=== PATIENT | female | born 1960 | race Caucasian/White ===

== ENCOUNTER → 2018-09-23 | Outpatient (CLI) | payer OTHER, SELFPAY ==
--- NOTE | 2018-09-23 14:55 | CT_ITS ---
STUDY: LOW DOSE CT LUNG CANCER SCREENING REASON FOR EXAM: Female, 57 years old. 40 pack-year history, lung cancer screening RADIATION DOSAGE (If Supplied By Facility): CTDIvol = ( 3.02 ) mGy, DLP = ( 110.23 ) mGycm TECHNIQUE: No contrast was administered. Low dose technique was utilized (average mAS-38 and kVp 120). 1.25 mm axial source images with a slice interval of 1.25-mm were reconstructed in lung windows. 2.5 mm axial source images with a slice interval of 2.5-mm were reconstructed in lung windows. 5.0 mm axial source images with a slice interval of 5.0-mm were reconstructed in soft tissue windows. Nodule measured using lung windows on PACS and/or independent workstation with automated measurement of minimum and maximum diameter. Nodule measurement reported as average diameter rounded to the nearest whole number. Growth is defined as an increase ins size of greater than 1.5 mm. COMPARISON: None. NODULES: No noncalcified pulmonary nodules. Emphysema: Moderate centrilobular emphysema predominantly in the upper lung miguel. Mild degree of bronchiectasis. There are scattered fibrotic parenchymal bands. Endobronchial lesion: None Aorta: Atherosclerosis with tortuosity but no evidence of aneurysm. Coronary arteries: Mild atherosclerosis. Heart: Normal size Pulmonary artery: Grossly unremarkable. Mediastinal nodes: No soft tissue adenopathy. Other chest and abdominal findings: Adrenal glands are not enlarged. CT/Low Dose CT Lung Screening IMPRESSION: 1. Lung-RADS category 1 - Continue annual screening with LDCT in 12 months. 2. Moderate centrilobular emphysema with bronchiectasis. 3. Atherosclerosis including coronary arteries. IMPORTANT NOTES FOR USE: ACR Lung-RADS Version 1.0 Assessment Categories Release Date: October 02, 2013 Category: Coded 0-4 bases on nodule(s) with highest degree of suspicion. Negative screen is defined as categories 1 and 2; a positive screen is defined as categories 3 and 4. Category 3 and 4A nodules that are unchanged on interval CT should be coded as category 2, and individuals returned to screening in 12 months. Category 4X: Category 3 or 4 nodules with additional imaging findings that increase the suspicion of lung cancer, such as spiculation, GGN that doubles in size in 1 year, enlarged lymph notes, etc. Category Modifiers: S (significant finding unrelated to lung cancer) and C (prior history of treated lung cancer) may be added to the 0-4 Lung-RADS Electronically Signed: Clif Wilson MD at 13:58 EDT , Service support ,
== END | disposition home or self-care (01) ==
PROVIDERS: Family Provider Family Medicine; PCP Family Medicine; Referring Provider Internal Medicine Pulmonary Disease; Visit Provider Internal Medicine Pulmonary Disease
DX: Z87.891 Personal history of nicotine dependence (principal)
CPT/HCPCS: G0297

== ENCOUNTER → 2020-08-31 09:56 | Outpatient (CLI) | payer OTHER, SELFPAY ==
--- NOTE | 2020-08-31 10:02 | CT_ITS ---
STUDY: LOW DOSE CT LUNG CANCER SCREENING REASON FOR EXAM: Female, 59 years old. TOBACCO USE RADIATION DOSAGE (If Supplied By Facility): CTDIvol = ( 4.02 ) mGy, DLP = ( 149.99 ) mGycm TECHNIQUE: Transaxial imaging was performed without the administration of intravenous contrast material. Individualized dose optimization techniques were used for this CT. COMPARISON: CT chest. FINDINGS: Heart and great vessels: Heart size normal. No aneurysm of the thoracic aorta. Calcific atherosclerosis including of the coronary arteries. Lungs, pleura, airways: No pneumonia, edema, or acute abnormality in the lungs. No pleural effusion. No pneumothorax. No concerning pulmonary nodules. Moderate emphysema and mild bronchiectasis are similar to previous. Mediastinum: No adenopathy or mass or hematoma. Osseous:No fracture or acute osseous abnormality. Chest wall: No concerning findings. Upper abdomen: No acute findings. CT/Low Dose CT Lung Screening IMPRESSION: No concerning dominant nodules. Lung RADS category 1. Continued annual screening suggested. Moderate emphysema. IMPORTANT NOTES FOR USE: ACR Lung-RADS Version 1.0 Assessment Categories Release Date: October 02, 2013 Category: Coded 0-4 bases on nodule(s) with highest degree of suspicion. Negative screen is defined as categories 1 and 2; a positive screen is defined as categories 3 and 4. Category 3 and 4A nodules that are unchanged on interval CT should be coded as category 2, and individuals returned to screening in 12 months. Category 4X: Category 3 or 4 nodules with additional imaging findings that increase the suspicion of lung cancer, such as spiculation, GGN that doubles in size in 1 year, enlarged lymph notes, etc. Category Modifiers: S (significant finding unrelated to lung cancer) and C (prior history of treated lung cancer) may be added to the 0-4 Lung-RADS Electronically Signed: Jairon Saul MD at 6:43 EDT Tel , Service support ,
== END ==
PROVIDERS: PCP Family Medicine; Referring Provider Internal Medicine Pulmonary Disease; Visit Provider Internal Medicine Pulmonary Disease
DX: Z12.2 Encounter for screening for malignant neoplasm of respiratory organs (principal); J43.9 Emphysema, unspecified; Z87.891 Personal history of nicotine dependence
CPT/HCPCS: 71271

== ENCOUNTER 2021-09-01 12:37 | Outpatient (CLI) | payer OTHER, SELFPAY ==
--- NOTE | 2021-09-01 12:41 | CT_ITS ---
STUDY: LOW DOSE CT LUNG CANCER SCREENING REASON FOR EXAM: Female, 60 years old. Long history of smoking. Screening for lung cancer. RADIATION DOSAGE (If Supplied By Facility): CTDIvol = ( 3.02 ) mGy, DLP = ( 101.18 ) mGycm TECHNIQUE: No contrast was administered. Low dose technique was utilized (average mAS-38 and kVp 120). 1.25 mm axial source images with a slice interval of 1.25-mm were reconstructed in lung windows. 2.5 mm axial source images with a slice interval of 2.5-mm were reconstructed in lung windows. 5.0 mm axial source images with a slice interval of 5.0-mm were reconstructed in soft tissue windows. Nodule measured using lung windows on PACS and/or independent workstation with automated measurement of minimum and maximum diameter. Nodule measurement reported as average diameter rounded to the nearest whole number. Growth is defined as an increase ins size of greater than 1.5 mm. COMPARISON: 08/31/2020. NODULES: There is hyperinflation of the lungs consistent with chronic obstructive lung disease (COPD). Emphysematous changes are present in both lungs more prominent in the lower lobes. There is complete atelectasis of the right middle lobe. There are no suspicious lung nodules There are no endobronchial lesions. There is no demonstrated pleural abnormality. Normal heart and pericardium. Normal mediastinum. Normal hilar regions. Normal unenhanced pulmonary arteries. Normal aorta arch and descending thoracic aorta. Normal osseous structures. There is no demonstrated abnormality of the visualized upper abdomen. CT/Low Dose CT Lung Screening IMPRESSION: Lung-RADS category 3. Complete atelectasis of the right middle lobe is new since the previous study Recommendation: Endoscopic examination of the right middle lobe bronchus. Follow-up CT scan in 3 months. IMPORTANT NOTES FOR USE: ACR Lung-RADS Version 1.0 Assessment Categories Release Date: October 02, 2013 Category: Coded 0-4 bases on nodule(s) with highest degree of suspicion. Negative screen is defined as categories 1 and 2; a positive screen is defined as categories 3 and 4. Category 3 and 4A nodules that are unchanged on interval CT should be coded as category 2, and individuals returned to screening in 12 months. Category 4X: Category 3 or 4 nodules with additional imaging findings that increase the suspicion of lung cancer, such as spiculation, GGN that doubles in size in 1 year, enlarged lymph notes, etc. Category Modifiers: S (significant finding unrelated to lung cancer) and C (prior history of treated lung cancer) may be added to the 0-4 Lung-RADS Electronically Signed: Enrique Kent MD at 4:56 EDT ,
== END 2021-09-01 23:59 | disposition home or self-care (01) ==
LOC: CT 12:40
PROVIDERS: PCP Family Medicine; Referring Provider Internal Medicine Pulmonary Disease; Visit Provider Internal Medicine Pulmonary Disease
DX: Z87.891 Personal history of nicotine dependence (principal)
CPT/HCPCS: 71271

== ENCOUNTER 2021-09-24 11:22 | Day surgery (SDC) | payer OTHER, SELFPAY ==
--- NOTE | 2021-09-22 08:56 | RAD_ITS ---
INDICATION: PRE-OP EXAMINATION/TECHNIQUE: X-RAY - XR Chest 2 Views COMPARISON: 08/24/2021. FINDINGS: LINES/DEVICES: None. LUNGS: Peribronchial cuffing bilateral hilar prominence is visualized. No evidence of focal lung infiltrate or consolidation. No evidence of pleural effusion. No pneumothorax. MEDIASTINUM AND CARDIOVASCULAR STRUCTURES: Cardiac silhouette not enlarged. Central airways and mediastinal contour are unremarkable. BONES AND SOFT TISSUES: Unremarkable. RAD/Chest PA and Lateral IMPRESSION: No radiographic evidence of acute cardiopulmonary disease. Electronically Signed: Cj Frost MD at 10:42 EDT ,
[2021-09-24] VITALS (7 sets, daily range): BP systolic 107–119; BP diastolic 65–70; PULSE 80–84; RESP 16; TEMP 36.3–36.7; O2SAT 88–94; BMI 33.0
[2021-09-24] MEDS: Lactated Ringers 1,000 ML 15 ML IV (12:35)
[2021-09-24] MEDS: Phenylephrine 0.25% 15 ML NASAL.SRY 15 SPRAY NASAL (13:22)
--- NOTE | 2021-09-24 14:15 | OP.BRONCH_ITS ---
Patient Name: Kendra Buitrago Procedure Date: 09/24/2021 1:17 PM Date of : 1960 Age: 60 Procedure: Bronchoscopy Indications: atelectasis [facility] Providers: Tomi Mackenzie MD Referring MD: Tomi Mackenzie MD Medicines: Lidocaine applied to nares and subglottic space Complications: No immediate complications Procedure: Pre-Anesthesia Assessment: - A History and Physical has been performed. The patient's medications, allergies and sensitivities have been reviewed. - The risks and benefits of the procedure and the sedation options and risks were discussed with the patient. All questions were answered and informed consent was obtained. - The risks and benefits of the procedure and the sedation options and risks were discussed with the patient. All questions were answered and informed consent was obtained. After I obtained informed consent, the scope was passed under direct vision. Throughout the procedure, the patient's blood pressure, pulse, and oxygen saturations were monitored continuously. The bronchoscope was introduced through the right nostril and advanced to the tracheobronchial tree of both lungs. The patient tolerated the procedure well. The total duration of the procedure was 0 hours and 15 minutes. Findings: The nasopharynx/oropharynx appears normal. The larynx appears normal. The vocal cords appear normal. The subglottic space is normal. The trachea is of normal caliber. The rosalba is sharp. The tracheobronchial tree was examined to at least the first subsegmental level. Bronchial mucosa and anatomy are normal; there are no endobronchial lesions, and no secretions. Bronchoalveolar lavage was performed in the RML medial segment (B5) of the lung and sent for cell count, bacterial culture, viral smears & culture, and fungal & AFB analysis. 100 mL of fluid were instilled. 30 mL were returned. The return was blood-tinged. There were no mucoid plugs in the return fluid. Multiple specimens were obtained, and each sent for analysis. Brushings of an area of infiltration were obtained in the medial segment of the right middle lobe Impression: - The airway examination was normal. - The airway examination was normal. - Bronchoalveolar lavage was performed. - Brushings were obtained. Recommendation: - Await BAL and brushing results. Procedure Code(s): --- Professional --- 32416, Bronchoscopy, rigid or flexible, including fluoroscopic guidance, when performed; with brushing or protected brushings Diagnosis Code(s): --- Professional --- J44.9, Chronic obstructive pulmonary disease, unspecified CPT copyright 2017 [employer]. All rights reserved. The codes documented in this report are preliminary and upon belt molder review may be revised to meet current compliance requirements. MD Tomi Garrido MD 09/24/2021 2:15:17 PM This report has been signed electronically. Number of Addenda: 0 Note Initiated On: 09/24/2021 1:17 PM
--- NOTE | 2021-09-24 14:20 | FLU_PTH ---
PATIENT: YVON PATIÑO LOC: EN U#:[id number] AGE/SX: 60/F ROOM: RE09/24/[address]: Dr. Tomi Mackenzie MD : 1960 BED: DIS: 09/24/2021 SPEC #: [id number] RECD: 09/24/21 14:41 STATUS: LILIAN RERafael #: [id number] OLIVER: 09/24/21 14:[address]: Tomi Mackenzie V DEPT: CYTOLOGY RECD BY: Do Baker ENTERED: 09/25/21 09:48 SP TYPE: Fluid OTHR DR: Dr. Vu Aguilera MD Tissues: A - Bronchus of right middle lobe B - Bronchus of right middle lobe C - Bronchus of right middle lobe Procedures: Special Stain Group II Surgery Specimen Level IV Cytospin Fluid Cytology Other HEADER OPERATION: Bronchoscopy PRE-OP DIAGNOSIS: Atelectasis TISSUE SUBMITTED: A ? BAL RML wash, B ? [place], C ? RML x3 smears DIAGNOSIS CYTOLOGY A. RML, washing and BAL fluid (cytospin and cell block): Negative for malignant cells. B. [place] (cytospin and cell block): Negative for malignant cells. C. RML brushings (smears): Negative for malignant cells. :karely 09/26/2021 COMMENT Correlation with clinical, radiologic and appropriate follow up are necessary. CYTOLOGY STUDY Slides are reviewed. CYTOLOGY GROSS A - Received is 20 ml of light pink cloudy fluid labeled with the patient's name and and designated per the requisition as BAL RML wash. Submitted for cytology preparation including cell block. B - Received is 0.3 ml of red cloudy fluid labeled with the patient's name and and designated per the requisition as brush. Submitted for cytology preparation including cell block. C - Received are three smears labeled with the patient's name and designated per the requisition as brush. Submitted for staining. / karely 09/25/2021 TC:5 CPT: 33824 x2, 79116 x2, [id number]
[2021-09-25 07:55] LABS: Cytology, Washings SEE PATHOLOGY REPORT
== END 2021-09-24 15:00 | disposition home or self-care (01) ==
LOC: EN 11:22 → AC 11:23
PROVIDERS: PCP Family Medicine; Referring Provider Internal Medicine Pulmonary Disease; Visit Provider Internal Medicine Pulmonary Disease
PROC: 0BJ08ZZ Inspection of Tracheobronchial Tree, Via Natural or Artificial Opening Endoscopic (ICD-10-PCS; CPT 31622; principal; 2021-09-24 13:15)
DX: J98.11 Atelectasis (principal); J44.9 Chronic obstructive pulmonary disease, unspecified; I10 Essential (primary) hypertension; G47.33 Obstructive sleep apnea (adult) (pediatric); J30.9 Allergic rhinitis, unspecified; F17.210 Nicotine dependence, cigarettes, uncomplicated; R09.02 Hypoxemia; Z99.81 Dependence on supplemental oxygen; Z79.899 Other long term (current) drug therapy
CPT/HCPCS: 31623; 71046; 87070; 87205; 87426; 88108; 88161; 88305; 88313; 89050; C9803; J7120

== ENCOUNTER → 2022-03-11 | Outpatient (CLI) | payer OTHER, SELFPAY ==
--- NOTE | 2022-03-11 12:05 | RAD_ITS ---
INDICATION: HYPOXEMIA EXAMINATION/TECHNIQUE: X-RAY - XR Chest 2 Views COMPARISON: None. FINDINGS: Hyperinflated lungs. Lungs are otherwise clear. Tortuous and calcified thoracic aorta. The heart is not enlarged. No pleural effusion or pneumothorax. Degenerative changes of the thoracic spine. RAD/Chest PA and Lateral IMPRESSION: Hyperinflated lungs which can be seen in COPD. Electronically Signed: Martinez Alfred MD at 18:06 EDT ,
[2022-03-11 15:33] LABS: Hematocrit 50.4 % (37-47); Hemoglobin 16.4 g/dL (12.0-15.0); Mean Corp Hgb Conc 32.5 g/dL (32-36); Mean Corpuscular Volume 98.2 fL (81-99); Mean Platelet Vol. 9.8 fl (6.2-12.0); Platelet Count 273 K/mm3 (150-450); RBC Distribution Width CV 13.1 % (11.6-14.6); RBC Distribution Width SD 47.9 fl (35.1-43.9); Red Blood Count 5.13 M/mm3 (4.2-5.4); White Blood Count 9.6 K/mm3 (4.4-11.0)
== END | disposition home or self-care (01) ==
PROVIDERS: PCP Family Medicine; Referring Provider Internal Medicine Pulmonary Disease; Visit Provider Internal Medicine Pulmonary Disease
DX: J30.9 Allergic rhinitis, unspecified (principal); J44.9 Chronic obstructive pulmonary disease, unspecified; J98.11 Atelectasis
CPT/HCPCS: 36415; 71046; 85027

== ENCOUNTER → 2022-04-08 | Outpatient (CLI) | payer OTHER, SELFPAY | END | disposition home or self-care (01) | LOC: LABSPEC 14:00 | PROVIDERS: PCP Family Medicine; Visit Provider Internal Medicine Pulmonary Disease | DX: R05.9 Cough, unspecified (principal) | CPT/HCPCS: 87070; 87205 ==

== ENCOUNTER → 2022-05-09 | Outpatient (CLI) | payer OTHER, SELFPAY ==
--- NOTE | 2022-05-09 09:06 | CT_ITS ---
EXAM: CT CHEST WITHOUT INTRAVENOUS CONTRAST CLINICAL INDICATION: BRONCHIECTASIS TECHNIQUE: Helically acquired images were obtained of the chest without intravenous contrast. This CT exam was performed using one or more of the following dose reduction techniques: automated exposure control, adjustment of the mA and/or kV according to patient size, and/or use of iterative reconstruction technique. This report was created using Add[employer] report generation technology. RADIATION DOSE: CTDIvol = 18.22 mGy, DLP = 678.32 mGy-cm COMPARISON: CT chest without contrast 09/01/2021. FINDINGS: LUNGS AND PLEURAL SPACES: Pulmonary hyperinflation. Centrilobular cysts in the upper lobes. Reexpansion of the right middle lobe atelectases. No mass. No pleural effusion or thickening. No pneumothorax. HEART: Unremarkable. Heart size is normal. No pericardial effusion. No significant coronary artery calcifications. MEDIASTINUM: Unremarkable. No mediastinal or hilar adenopathy. Esophagus is unremarkable. No hiatal hernia. THYROID: Unremarkable. No thyroid lesions. BONES/JOINTS: Unremarkable. No suspicious lytic or blastic abnormality. VASCULATURE: Unremarkable. Thoracic aorta is non-dilated. LIVER: 2.7 cm hypodensity in the right hepatic lobe was present previously. CT/Chest without Contrast IMPRESSION: 1. Centrilobular cystic emphysema predominant type of COPD. 2. Interval resolution of right middle lobe atelectasis. 3. No acute chest abnormality. 4. 2.7 cm hypodense lesion in the right hepatic lobe is most likely cyst. This is barely visible on the low dose screening CT chest of 09/01/2021 but unchanged. Electronically Signed: Osman Figueroa MD at 9:56 EST ,
== END | disposition home or self-care (01) ==
LOC: CT 08:58
PROVIDERS: PCP Family Medicine; Referring Provider Internal Medicine Pulmonary Disease; Visit Provider Internal Medicine Pulmonary Disease
DX: J47.9 Bronchiectasis, uncomplicated (principal)
CPT/HCPCS: 71250

== ENCOUNTER 2023-01-21 08:47 | Inpatient (IN) | payer OTHER, SELFPAY ==
[2023-01-21] VITALS (12 sets, daily range): BP systolic 129–176; BP diastolic 60–80; PULSE 68–87; RESP 18–30; TEMP 36.8–36.9; O2SAT 60–99; BMI 33.3; BMI 32.1
--- NOTE | 2023-01-21 08:48 | EKG12_ITS ---
Test Reason : SOB Blood Pressure : / mmHG Vent. Rate : 087 BPM Atrial Rate : 087 BPM P-R Int : 130 ms QRS Dur : 076 ms QT Int : 372 ms P-R-T Axes : 080 053 080 degrees QTc Int : 447 ms Normal sinus rhythm Low voltage QRS Septal infarct , age undetermined Abnormal ECG Confirmed by AMARI RICHARDSON ([id number]), pictures editor JANETT ATKINSON ([id number]) on 01/26/2023 8:32:07 AM Referred By: Confirmed By:AMARI RICHARDSON
--- NOTE | 2023-01-21 08:54 | NURSING ---
NO OLD EKGS
[2023-01-21] MEDS: Albuterol 2.5 MG/3 ML VIAL.NEB. INHALATION ×2 (08:56→08:57)
[2023-01-21] MEDS: Ipratropium/Albuterol Sulfate 3 ML AMPUL.NEB INHALATION ×3 (08:56→19:16)
[2023-01-21 09:12] LABS: Absolute Lymphocyte Count 1.74 X10^3/uL (0.83-4.51); Absolute Neutrophil Count 7.1 X10^3/uL (2.0-7.7); Basophil# 0.07 X10^3/uL; Basophil% 0.7 % (0-1); Eosinophil# 0.13 X10^3/uL; Eosinophils% 1.3 % (0-5); Hematocrit 49.3 % (37-47); Hemoglobin 15.5 g/dL (12.0-15.0); Lymphocyte # 1.74 X10^3/ul (0.83-4.51); Lymphocyte % 17.9 % (19-41); Mean Corp Hgb Conc 31.4 g/dL (32-36); Mean Corpuscular Hgb 31.2 pg (27.0-32.0); Mean Corpuscular Volume 99.2 fL (81-99); Mean Platelet Vol. 9.3 fl (6.2-12.0); Monocyte# 0.64 X10^3/uL; Monocyte% 6.6 % (0-10); NRBC Flagged by Analyzer 0 % (0-5); Neutrophil # 7.07 X10^3/uL (2.7-7.7); Platelet Count 226 K/mm3 (150-450); RBC Distribution Width CV 12.7 % (11.6-14.6); RBC Distribution Width SD 47.1 fl (35.1-43.9); Red Blood Count 4.97 M/mm3 (4.2-5.4); White Blood Count 9.7 K/mm3 (4.4-11.0)
--- NOTE | 2023-01-21 09:17 | ED.VIS.DYS ---
HPI History of Present Illness Chief Complaint: Shortness of Breath Informant: patient and PCP Narrative Narrative: Increase shortness of breath and cough for the past couple days, seen at PCPs office today, and was extremely short of breath and tight in the chest/lungs with pulse ox around 60% when she arrived, but she was off of her home with 3-4 L of oxygen although she had her concentrator with her and the tubing was not attached to it, they put her on oxygen and despite giving her nebulizer treatments were unable to get her up into the 90s. She sees Dr. Mackenzie for pulmonary and wanted to come here but refused to come by EMS. On her home oxygen 3 L which she uses during the day, 4 at night, she was in the 60s upon arrival here. She denies any fevers or chills. No chest discomfort. Her cough is nonproductive, states it feels like there is phlegm that she cannot get up. She denies any edema in the legs or orthopnea. She does not have any nebulizer or inhalers at home and has been not using these medications for some time. [facility] Medical History Back pain COPD (chronic obstructive pulmonary disease) Easy bruising Heartburn History of pain when walking History of steroid therapy Hypertension Leg cramps On home oxygen therapy Restless legs Shortness of breath on exertion Smoker Wears glasses Home Medications albuterol sulfate 90 mcg/actuation aerosol inhaler 1 puff inhalation Q6H PRN SOB 09/19/21 [History Last Taken Unknown] calcium carbonate 600 mg-vitamin D3 10 mcg (400 unit) tablet (Calcium 600 + D(3)) 1 tab PO MOWEFR 09/19/21 [History Last Taken Unknown] fluticasone fur. 100 mcg-umeclid 62.5 mcg-vilant 25 mcg inhalat.powder (Trelegy Ellipta) 1 inh inhalation DAILY 09/19/21 [History Last Taken Unknown] lisinopril 20 mg-hydrochlorothiazide 25 mg tablet 1 tab PO DAILY 09/19/21 [History Last Taken 09/24/21 08:00] naproxen sodium 220 mg tablet (Aleve) 220 mg PO BID PRN Pain 09/19/21 [History Last Taken Unknown] omega 3-tfg-oma-fish oil 1,200 mg (144 mg-216 mg) capsule (Fish Oil) 1,200 cap PO DAILY 09/19/21 [History Last Taken Unknown] simethicone 80 mg chewable tablet 80 mg PO QHS PRN Indigestion 09/19/21 [History Last Taken Unknown] Allergy/AdvReac Type Severity Reaction Status Date / Time Sulfa (Sulfonamide Allergy Angioedema Verified 09/24/21 12:29 Antibiotics) Family History (Updated 01/21/23 @ 12:[address] Wale Villanueva MD) Other Cancer Heart disease Surgical History Hx of appendectomy Hx of colonoscopy Hx of left cataract extraction Hx of right cataract extraction Hx of tonsillectomy Social History Smoking Status: Current some day smoker tobacco type: cigarettes ROS ROS ED Constitutional Constitutional ED: Reports malaise; Denies chills or fever(s) Eyes Eyes: Denies change in vision or diplopia ENT ENT ED: Denies rhinorrhea or sore throat Cardiovascular Cardiovascular: Denies chest pain or palpitations Respiratory/Chest Respiratory/Chest: Reports cough, dyspnea and dyspnea on exertion; Denies sputum Gastrointestinal Gastrointestinal: Denies abdominal pain, diarrhea, nausea or vomiting Genitourinary Genitourinary ED: Denies dysuria or hematuria Musculoskeletal Musculoskeletal: Denies back pain or neck pain Integumentary Denies abscess or rash Neurologic Neurologic: Denies headache(s), paresthesias or weakness Psychiatric Psychiatric: Denies anxiety or suicidal thoughts EXAM Physical Exam Const Vital Signs: 01/21/23 08:48 01/21/23 08:53 01/21/23 08:53 Temperature 98.2 F Temperature Source Temporal Pulse Rate 78 77 Respiratory Rate 30 H 24 H Respiratory Effort Respiratory Depth Respiratory Pattern Blood Pressure 176/80 H Blood Pressure Mean 112 Pulse Ox 60 99 Oxygen Delivery Method Room Air Non-Rebreather Non-Rebreather Oxygen Flow Rate (L/min) 15 15 Fraction of Inspired Oxygen (FIO2) 15 01/21/23 08:52 01/21/23 09:31 01/21/23 10:38 Temperature 98.4 F Temperature Source Oral Pulse Rate 82 73 Respiratory Rate 28 H 18 Respiratory Effort Short of Breath Labored Accessory Muscle Use Respiratory Depth Shallow Respiratory Pattern Tachypnea Blood Pressure 129/68 H Blood Pressure Mean 88 Pulse Ox 91 Oxygen Delivery Method Room Air Nasal Cannula Oxygen Flow Rate (L/min) 4 Fraction of Inspired Oxygen (FIO2) Positive well nourished and well developed Constitutional Narrative: Mild respiratory distress, keenly alert and able to speak General Appearance ED: well developed HEENT Reports moist mucous membranes normocephalic and atraumatic Eyes PERRL and EOMs intact bilaterally Neck full ROM, no lymphadenopathy, supple, no meningeal signs and no JVD Resp Resp Narrative: Mild respiratory distress, sounds extremely tight and diffusely symmetrically diminished with expiratory wheezes throughout and prolonged expiratory phase. Able to speak in 3-7 word sentences. Cardio regular rate, regular rhythm and no murmurs Rate: Negative for tachycardic GI non-tender and non-distended Auscultation: normoactive bowel sounds Palpation: soft Back/Spine no CVA tenderness General Back: other FROM Extremity normal to inspection General Extremety ED: Negative for edema, pulses abnormal or tenderness General Extremity: Negative for edema or pulses abnormal Neuro oriented x3, CN's II-XII intact bilaterally and no sensory deficits noted Sensorium / Orientation: awake and alert Motor Exam: strength 5/5 throughout Skin no rashes or lesions noted and no wounds MDM MDM MDM Narrative Medical decision making narrative: Patient placed on a nonrebreather and given a series of nebulizer treatments in addition to Solu-Medrol 125 IV. ABG was ordered, they obtained a venous specimen which I was okay with, shows a pH of 7.345, indicating she does not necessarily have acute hypercapnia/respiratory acidosis. After nebulizer treatments, she is significantly improved, she still mildly tachypnea, 94% on 6 L nasal cannula certainly improved but she is still in mild distress, I do not think she needs to be admitted to the ICU but I do think admission is warranted here. She is amenable. Chest x-ray 1 view on my interpretation shows no acute pneumonia, COPD chronic hyperexpansion is noted. Lab Data Attestation: I reviewed the patient's lab results. Labs: Laboratory Results - last 24 hr 01/21/23 08:59 WBC 9.7 RBC 4.97 Hgb 15.5 H Hct 49.3 H MCV 99.2 H MCH 31.2 MCHC 31.4 L RDW Std Deviation 47.1 H RDW Coeff of Keila 12.7 Plt Count 226 MPV 9.3 Immature Gran % (Auto) 0.500 Neut % (Auto) 73.0 H Lymph % (Auto) 17.9 L Mobile % (Auto) 6.6 Eos % (Auto) 1.3 Baso % (Auto) 0.7 Absolute Neuts (auto) 7.1 Absolute Lymphs (auto) 1.74 Nucleated RBC % 0 Sodium 142 Potassium 3.9 Chloride 100 Carbon Dioxide 39.0 H Anion Gap 3 L BUN 16 Creatinine 0.71 Estim Creat Clear Calc 77.84 Est GFR (MDRD) Af Amer 106 Est GFR (MDRD) Non-Af 87 BUN/Creatinine Ratio 22.4 H Glucose 181 H Calcium 9.3 Troponin I High Sens 11 ABG Data ABG results: ABG 01/21/23 09:17 Specimen Type SHINE VBG pH 7.35 VBG pO2 41 H VBG HCO3 38 H VBG Total CO2 40 H VBG O2 Sat (Calc) 70 VBG Base Excess 12 H POC Mix VBG pCO2 Pt Tmp 69.2 H O2 Delivery Device AeroMask Liter Flow 7.0 Radiography Diagnostic Testing: Clinical Impression(s) from Imaging Studies Chest X-Ray 01/21/23 09:35 IMPRESSION: Hyperinflation. The lungs are clear. Electronically Signed: Ren Santoyo MD at 10:11 EDT , Rhythm Strip Rhythm Strip: Sinus Rhythm Rate: 85 Ectopy: None EKG Initial EKG: Attestation: I personally reviewed and interpreted this EKG as follows: Interpretation: Sinus Rhythm and No Acute Injury Pattern Comments: nml EKG Management Discussion w/another healthcare provider: Hospitalist and PCP Discharge Plan Dx/Rx/DC Orders Clinical Impression: Acute hypoxemic respiratory failure, Acute exacerbation of chronic obstructive pulmonary disease (COPD) Disposition Disposition: [facility] Discharge Date/Time: 01/21/23 11:48
[2023-01-21 09:20] LABS: Blood Gas Specimen Type VEN; O2 Delivery Device AeroMask; VBG BASE EXCESS 12 mmol/L (-1.0-3.5); VBG Bicarbonate 38 mmol/L (22-26); VBG PO2 41 mmHg (25-40); VBG SO2 70 % (50-70); VBG TCO2 40 mmol/L (23-33); VBG pCO2 69.2 mmHg (41-51); VBG pH 7.35 (7.32-7.42)
[2023-01-21 09:32] LABS: Anion Gap 3 (5-15); BUN 16 mg/dL (7-18); BUN/Creat Ratio 22.4 RATIO (10-20); Calcium,Total 9.3 mg/dL (8.5-10.1); Chloride 100 mmol/L (98-107); Creatinine, Serum 0.71 mg/dL (0.55-1.02); EST Glomerular Filtration Rate 87 mL/min (>60); Est Glom Filt Rate - Afr Amer 106 mL/min (>60); Estimated Creatinine Clearance 77.84 ml/min; Glucose 181 mg/dL (74-106); Potassium 3.9 mmol/L (3.5-5.1); Sodium Level 142 mmol/L (136-145); Troponin-I HS 11 pg/mL (3.0-54.0)
--- NOTE | 2023-01-21 09:35 | RAD_ITS ---
STUDY: X-RAY CHEST REASON FOR EXAM: Female, 62 years old. Sob TECHNIQUE: Single AP portable view of the chest. COMPARISON: Comparison is made with prior study dated March 11, 2022. FINDINGS: EKG electrodes are seen. Hyperinflation. The lungs are clear. There is no demonstrated pleural abnormality. Normal size heart. Normal mediastinum and pieter. Normal visualized pulmonary arteries. There is atherosclerotic calcification of the aortic arch with tortuosity. Normal visualized thoracic spine. Normal visualized ribs, clavicles, and shoulders. There is no demonstrated abnormality of the visualized soft tissue structures of the upper abdomen. RAD/Chest 1 View (Portable) IMPRESSION: Hyperinflation. The lungs are clear. Electronically Signed: Ren Santoyo MD at 10:11 EDT ,
[2023-01-21] MEDS: MethylPREDNISolone 125 MG/2 ML Vial IV (09:57)
--- NOTE | 2023-01-21 10:57 | HP.PCM.HOS_ITS ---
HPI - General General Date of Admission: 01/21/23 HPI Narrative YVON PATIÑO, is a 62 F who presents to the hospital after being found hypoxic at her doctor's office. She was 60% on room air because the hose to her oxygen concentrator had disconnected. In the ER she was found to need 15 L nonrebreather initially and she was given multiple treatments of albuterol both here and at her PCPs office. She was also given a dose of steroids. She does have poor air movement and wheezing consistent with a COPD exacerbation. She denies any recent illnesses or fevers or chills. She denies any sick contacts. She does not have a productive cough at this time. She had made the appointment with her PCP because she has been having increasing shortness of breath over the last several days. Chest x-ray in the ER was unremarkable and she does not have a leukocytosis or fever. Her baseline oxygen requirements are 3 L at rest and 4 L at night [facility] Medical History Back pain COPD (chronic obstructive pulmonary disease) Easy bruising Heartburn History of pain when walking History of steroid therapy Hypertension Leg cramps On home oxygen therapy Restless legs Shortness of breath on exertion Smoker Wears glasses Home Medications albuterol sulfate 90 mcg/actuation aerosol inhaler 1 puff inhalation Q6H PRN SOB 09/19/21 [History Last Taken Unknown] calcium carbonate 600 mg-vitamin D3 10 mcg (400 unit) tablet (Calcium 600 + D (3)) 1 tab PO MOWEFR 09/19/21 [History Last Taken Unknown] fluticasone fur. 100 mcg-umeclid 62.5 mcg-vilant 25 mcg inhalat.powder (Trelegy Ellipta) 1 inh inhalation DAILY 09/19/21 [History Last Taken Unknown] lisinopril 20 mg-hydrochlorothiazide 25 mg tablet 1 tab PO DAILY 09/19/21 [History Last Taken 09/24/21 08:00] naproxen sodium 220 mg tablet (Aleve) 220 mg PO BID PRN Pain 09/19/21 [History Last Taken Unknown] omega 4-eys-nro-fish oil 1,200 mg (144 mg-216 mg) capsule (Fish Oil) 1,200 cap PO DAILY 09/19/21 [History Last Taken Unknown] simethicone 80 mg chewable tablet 80 mg PO QHS PRN Indigestion 09/19/21 [History Last Taken Unknown] Allergy/AdvReac Type Severity Reaction Status Date / Time Sulfa (Sulfonamide Allergy Angioedema Verified 09/24/21 12:29 Antibiotics) Family History (Updated 01/21/23 @ 12:[address] Wale Villanueva MD) Other Cancer Heart disease Surgical History Hx of appendectomy Hx of colonoscopy Hx of left cataract extraction Hx of right cataract extraction Hx of tonsillectomy Social History Smoking Status: Current some day smoker tobacco type: cigarettes ROS Constitutional Constitutional: Denies chills, fatigue, fever(s) or malaise Eyes Eyes: Denies blurry vision ENT HEENT: Denies headache(s) or nasal discharge Cardiovascular Cardiovascular: Denies chest pain, dyspnea on exertion or syncope Respiratory/Chest Respiratory/Chest: Reports cough, shortness of breath at rest and shortness of breath with exertion Gastrointestinal Gastrointestinal: Denies constipation, diarrhea, nausea or vomiting Genitourinary Genitourinary: Denies dysuria Neurologic Neurologic: Denies focal weakness, numbness or tremor(s) Psychiatric Psychiatric: Denies anxiety or depression Vital Signs Vital Signs Vital Signs: 01/21/23 08:48 01/21/23 08:53 01/21/23 08:53 Temperature 98.2 F Temperature Source Temporal Pulse Rate 78 77 Respiratory Rate 30 H 24 H Respiratory Effort Respiratory Depth Respiratory Pattern Blood Pressure 176/80 H Blood Pressure Mean 112 Pulse Ox 60 99 Oxygen Delivery Method Room Air Non-Rebreather Non-Rebreather Oxygen Flow Rate (L/min) 15 15 Fraction of Inspired Oxygen (FIO2) 15 01/21/23 08:52 01/21/23 09:31 01/21/23 10:38 Temperature 98.4 F Temperature Source Oral Pulse Rate 82 73 Respiratory Rate 28 H 18 Respiratory Effort Short of Breath Labored Accessory Muscle Use Respiratory Depth Shallow Respiratory Pattern Tachypnea Blood Pressure 129/68 H Blood Pressure Mean 88 Pulse Ox 91 Oxygen Delivery Method Room Air Nasal Cannula Oxygen Flow Rate (L/min) 4 Fraction of Inspired Oxygen (FIO2) Weight Weight: 213 lb 2.992 oz Body Mass Index (BMI) 33.3 Physical Exam Narrative General: Alert, Oriented x3, Cooperative, moderate respiratory distress HEENT: Atraumatic, PERRLA, EOMI, Normocephalic Oral: Moist Mucosa Neck: Supple, No JVD Lungs: Diminished, poor air movement, No rhonchi, scattered wheeze, No rales, tachypneic, tripoding Cardiovascular: Regular rate, Regular Rhythm, Normal S1, Normal S2, No murmurs Abdomen: Soft, Non Tender, Non-Distended, No Hepato-splenomegaly Extremities: No edema, Capillary Refill Less than 3 Seconds Skin: No rashes, No breakdown Musculoskeletal: No Tenderness to Palpation of Joints or Extremities Neurological: Diminished motor Exam 5/5 strength throughout, Sensory exam intact to light touch and pain Psych/Mental Status: Normal Affect, Appropriate Results Lab / Micro Data 01/21/23 08:59 01/21/23 08:59 Labs: Laboratory Results - last 24 hr 01/21/23 08:59: WBC 9.7, RBC 4.97, Hgb 15.5 H, Hct 49.3 H, MCV 99.2 H, MCH 31.2, MCHC 31.4 L, RDW Std Deviation 47.1 H, RDW Coeff of Keila 12.7, Plt Count 226, MPV 9.3, Immature Gran % (Auto) 0.500, Neut % (Auto) 73.0 H, Lymph % (Auto) 17.9 L, [place] % (Auto) 6.6, Eos % (Auto) 1.3, Baso % (Auto) 0.7, Absolute Neuts (auto) 7.1, Absolute Lymphs (auto) 1.74, Nucleated RBC % 0, Sodium 142, Potassium 3.9, Chloride 100, Carbon Dioxide 39.0 H, Anion Gap 3 L, BUN 16, Creatinine 0.71, Estim Creat Clear Calc 77.84, Est GFR (MDRD) Af Amer 106, Est GFR (MDRD) Non-Af 87, BUN/Creatinine Ratio 22.4 H, Glucose 181 H, Calcium 9.3, Troponin I High Sens 11 Micro: Microbiology 01/21/23 08:59 Nasal Secretion SARS-CoV-2 Antigen (Rapid) - Final ABG Data ABG results: ABG 01/21/23 09:17 Specimen Type SHINE VBG pH 7.35 VBG pO2 41 H VBG HCO3 38 H VBG Total CO2 40 H VBG O2 Sat (Calc) 70 VBG Base Excess 12 H POC Mix VBG pCO2 Pt Tmp 69.2 H O2 Delivery Device AeroMask Liter Flow 7.0 Rhythm Strip Rhythm Strip: Sinus Rhythm Rate: 85 Ectopy: None Radiology Impression Chest X-Ray 01/21/23 09:35 IMPRESSION: Hyperinflation. The lungs are clear. Electronically Signed: Ren Santoyo MD at 10:11 EDT , Assessment & Plan Assessment/Plan (1) Acute exacerbation of chronic obstructive pulmonary disease (COPD): (2) Acute hypoxemic respiratory failure: PLAN: Plan 1. Acute hypoxic respiratory failure secondary to COPD exacerbation ? Obtain sputum culture ? Continue with inhalers and steroids ? She was down to 60% document at the PCPs office on room air ? Continue with incentive spirometer ? Wean oxygen as able 2. HTN ? Blood pressures are stable ? Can resume her home blood pressure medications DVT: Lovenox 75 minutes was spent on direct patient care, including documentation as well as chart review and collaboration with colleagues Charges/Coding Visit Charges Inpatient E&M: 02052 Init Hosp L3
--- NOTE | 2023-01-21 10:59 | NURSING ---
DR HUNT FOR DR VALENZUELA
--- NOTE | 2023-01-21 11:03 | NURSING ---
MED SURG MARILEE COPD EXAC, HYPOXIC RESP FAILURE
[2023-01-21] MEDS: Methylprednisolone Sod Succ 40 MG/ML VIAL IV ×2 (15:13→20:46)
[2023-01-21] MEDS: 0.9% Saline Lock 10 ML Syringe IV (15:13)
[2023-01-21] MEDS: guaiFENesin 10 ML UDC (200MG/10ML) PO (20:49)
[2023-01-21 21:01] LABS: BNP,B-Type NATRIURETIC PEPTIDE 23.1 pg/mL (0-100)
[2023-01-22] VITALS (7 sets, daily range): BP systolic 127–153; BP diastolic 53–70; PULSE 66–100; RESP 18–19; TEMP 36.9; O2SAT 85–94
[2023-01-22 06:01] LABS: Absolute Lymphocyte Count 0.64 X10^3/uL (0.83-4.51); Absolute Neutrophil Count 8.9 X10^3/uL (2.0-7.7); Basophil# 0.03 X10^3/uL; Basophil% 0.3 % (0-1); Hematocrit 47.6 % (37-47); Hemoglobin 14.7 g/dL (12.0-15.0); Lymphocyte # 0.64 X10^3/ul (0.83-4.51); Lymphocyte % 6.3 % (19-41); Mean Corp Hgb Conc 30.9 g/dL (32-36); Mean Corpuscular Hgb 30.8 pg (27.0-32.0); Mean Corpuscular Volume 99.6 fL (81-99); Mean Platelet Vol. 9.8 fl (6.2-12.0); Monocyte# 0.41 X10^3/uL; Monocyte% 4.1 % (0-10); NRBC Flagged by Analyzer 0 % (0-5); Neutrophil # 8.88 X10^3/uL (2.7-7.7); Neutrophil % 88.1 % (47-70); Platelet Count 248 K/mm3 (150-450); RBC Distribution Width CV 12.5 % (11.6-14.6); RBC Distribution Width SD 46.7 fl (35.1-43.9); Red Blood Count 4.78 M/mm3 (4.2-5.4); White Blood Count 10.1 K/mm3 (4.4-11.0)
[2023-01-22] MEDS: Methylprednisolone Sod Succ 40 MG/ML VIAL IV ×2 (06:03→13:45)
[2023-01-22 06:27] LABS: Anion Gap 3 (5-15); BUN 22 mg/dL (7-18); BUN/Creat Ratio 29.7 RATIO (10-20); Calcium,Total 9.2 mg/dL (8.5-10.1); Chloride 99 mmol/L (98-107); Creatinine, Serum 0.74 mg/dL (0.55-1.02); EST Glomerular Filtration Rate 84 mL/min (>60); Est Glom Filt Rate - Afr Amer 101 mL/min (>60); Estimated Creatinine Clearance 74.69 ml/min; Glucose 209 mg/dL (74-106); Sodium Level 138 mmol/L (136-145)
[2023-01-22] MEDS: Ipratropium/Albuterol Sulfate 3 ML AMPUL.NEB INHALATION ×2 (07:22→10:26)
[2023-01-22] MEDS: Lisinopril 20 MG Tablet PO (09:16)
[2023-01-22] MEDS: hydroCHLOROthiazide 25 MG Tablet PO (09:16)
[2023-01-22] MEDS: Enoxaparin 40 MG/0.4 ML Syringe SC (09:17)
--- NOTE | 2023-01-22 10:49 | DCINST_ITS ---
Discharge Instructions Diet Discharge Diet: Low fat / Low cholesterol Activity Discharge Activity: Return to Normal Activity Dressing / Incision Call your doctor if you observe: Fever of 101 or Higher, Shortness of breath, Dizziness, Fainting spells, Swelling in the ankles, Chest pain and Increased palpitations (irregular heartbeat) Follow Up Care Test Results: Test results from this visit will be discussed in further detail at your follow- up appointment, if applicable. Discharge Plan Admission Admit Date/Time: 01/21/23 11:01 Attending Provider: Wale Villanueva Primary Care Provider: Vu Aguilera Discharge Orders/Prescriptions Prescriptions: New prednisone 10 mg tablet 10 mg PO DAILY Qty: 32 0RF Rx Instructions: Take 4 tablets for 3 days then 3 tablets for 3 days then 2 tablets for 3 days then 1 tablet for 3 days then half tablet for 4 days Continued naproxen sodium [Aleve] 220 mg Tablet 220 mg PO BID PRN (Reason: Pain) lisinopril-hydrochlorothiazide 20-25 mg Tablet 1 tab PO DAILY albuterol sulfate 90 mcg/actuation Hfa Aerosol Inhaler 1 puff INHALATION Q6H PRN (Reason: SOB) simethicone 80 mg Tablet,Chewable 80 mg PO QHS PRN (Reason: Indigestion) calcium carbonate-vitamin D3 [Calcium 600 + D(3)] 600 mg-10 mcg (400 unit) Tablet 1 tab PO MOWEFR omega 5-geb-qcv-fish oil [Fish Oil] 1,200 (144-216) mg Capsule 1,200 cap PO DAILY Trelegy Ellipta 100-62.5-25 mcg Blister With Device 1 inh INHALATION DAILY Referrals / Follow Up: Vu Aguilera MD [Primary Care Provider] - Within 1 Week Disposition Disposition (needs filled in before D/C Order can be placed): Home, Self Care
--- NOTE | 2023-01-22 10:57 | DS.PCM_ITS ---
Providers Date of Admission: 01/21/23 Primary Care Physician: Dr. Vu Aguilera MD Reason For Visit: COPD EXACERBATION Diagnosis Discharge Diagnosis (1) Acute exacerbation of chronic obstructive pulmonary disease (COPD): Status: Chronic Code(s): J44.1 - Chronic obstructive pulmonary disease with (acute) exacerbation (2) Acute hypoxemic respiratory failure: Status: Acute Code(s): J96.01 - Acute respiratory failure with hypoxia Medications at Discharge Home Medications albuterol sulfate 90 mcg/actuation aerosol inhaler 1 puff inhalation Q6H PRN SOB 09/19/21 calcium carbonate 600 mg-vitamin D3 10 mcg (400 unit) tablet (Calcium 600 + D(3)) 1 tab PO MOWEFR 09/19/21 fluticasone fur. 100 mcg-umeclid 62.5 mcg-vilant 25 mcg inhalat.powder (Trelegy Ellipta) 1 inh inhalation DAILY 09/19/21 lisinopril 20 mg-hydrochlorothiazide 25 mg tablet 1 tab PO DAILY 09/19/21 naproxen sodium 220 mg tablet (Aleve) 220 mg PO BID PRN Pain 09/19/21 omega 1-muv-hmz-fish oil 1,200 mg (144 mg-216 mg) capsule (Fish Oil) 1,200 cap PO DAILY 09/19/21 simethicone 80 mg chewable tablet 80 mg PO QHS PRN Indigestion 09/19/21 prednisone 10 mg tablet 10 mg PO DAILY #32 tabs 01/22/23 Hospital Course Operations None Procedures None Summary of Care Provided Minutes Spent on Discharge: 34 Hospital Course: Per HPI: YVON PATIÑO, is a 62 F who presents to the hospital after being found hypoxic at her doctor's office. She was 60% on room air because the hose to her oxygen concentrator had disconnected. In the ER she was found to need 15 L nonrebreather initially and she was given multiple treatments of albuterol both here and at her PCPs office. She was also given a dose of steroids. She does have poor air movement and wheezing consistent with a COPD exacerbation. She denies any recent illnesses or fevers or chills. She denies any sick contacts. She does not have a productive cough at this time. She had made the appointment with her PCP because she has been having increasing shortness of breath over the last several days. Chest x-ray in the ER was unremarkable and she does not have a leukocytosis or fever. Her baseline oxygen requirements are 3 L at rest and 4 L at night Hospital Course: 1. Acute hypoxic respiratory failure secondary to COPD exacerbation and lack of home O2?62-year-old female presented to the hospital from her PCPs office for oxygen saturations at 60% on room air. She is supposed to be on chronic oxygen I believe at 2 to 3 L however at the time of this evaluation they discovered that her oxygen concentrator was disconnected. On arrival to the ER she will be placed on 15 L nonrebreather though this slowly improved after several doses of albuterol. She was started on steroids. Today she has had improvement in her air movement however she was demanding to go home she says that she felt fine. I discussed with her that we need to do an ambulatory pulse ox first at which point she was 89% on 4 L nasal cannula. I discussed that this was a little bit borderline however she maintained that she was stable to go home and wanted to go home today. I discussed with her the possibility for discharge and she expressed understanding of the risk and benefits of going home and wanted to go home today. We will continue with her oxygen on discharge and will place her on a prednisone taper over 2 weeks. Physical Exam Narrative General: Alert, Oriented x3, Cooperative, no acute distress HEENT: Atraumatic, PERRLA, EOMI, Normocephalic Oral: Moist Mucosa Neck: Supple, No JVD Lungs: Diminished, improved air movement, No rhonchi, scattered wheeze, No rales, tachypneic especially with ambulation Cardiovascular: Regular rate, Regular Rhythm, Normal S1, Normal S2, No murmurs Abdomen: Soft, Non Tender, Non-Distended, No Hepato-splenomegaly Extremities: No edema, Capillary Refill Less than 3 Seconds Skin: No rashes, No breakdown Musculoskeletal: No Tenderness to Palpation of Joints or Extremities Neurological: Diminished motor Exam 5/5 strength throughout, Sensory exam intact to light touch and pain Psych/Mental Status: Normal Affect, Appropriate Weight / BMI Weight Weight: 205 lb 4.006 oz Body Mass Index (BMI) 32.1 ABG / Lab / Microbiology Data 01/22/23 05:35 01/22/23 05:35 Laboratory: Laboratory Results - last 24 hr 01/21/23 08:59: B-Natriuretic Peptide 23.1 08/18/23 05:35: WBC 10.1, RBC 4.78, Hgb 14.7, Hct 47.6 H, MCV 99.6 H, MCH 30.8, MCHC 30.9 L, RDW Std Deviation 46.7 H, RDW Coeff of Keila 12.5, Plt Count 248, MPV 9.8, Immature Gran % (Auto) 1.200 H, Neut % (Auto) 88.1 H, Lymph % (Auto) 6.3 L, [place] % (Auto) 4.1, Eos % (Auto) 0.0, Baso % (Auto) 0.3, Absolute Neuts (auto) 8.9 H, Absolute Lymphs (auto) 0.64 L, Nucleated RBC % 0, Sodium 138, Potassium 4.0, Chloride 99, Carbon Dioxide 36.0 H, Anion Gap 3 L, BUN 22 H, Creatinine 0.74, Estim Creat Clear Calc 74.69, Est GFR (MDRD) Af Amer 101, Est GFR (MDRD) Non-Af 84, BUN/Creatinine Ratio 29.7 H, Glucose 209 H, Calcium 9.2 Microbiology: Microbiology 01/21/23 08:59 Nasal Secretion SARS-CoV-2 Antigen (Rapid) - Final D/C Instructions Discharge Diet: Low fat / Low cholesterol Call your doctor if you observe: Fever of 101 or Higher, Shortness of breath, Dizziness, Fainting spells, Swelling in the ankles, Chest pain and Increased palpitations (irregular heartbeat) Meaningful Use Info Meaningful Use Diagnoses (Choose all that apply): None applicable Discharge Plan Admission Admit Date/Time: 01/21/23 11:01 Attending Provider: Wael Villanueva Primary Care Provider: Vu Aguilera Discharge Orders/Prescriptions Prescriptions: New prednisone 10 mg tablet 10 mg PO DAILY Qty: 32 0RF Rx Instructions: Take 4 tablets for 3 days then 3 tablets for 3 days then 2 tablets for 3 days then 1 tablet for 3 days then half tablet for 4 days Continued naproxen sodium [Aleve] 220 mg Tablet 220 mg PO BID PRN (Reason: Pain) lisinopril-hydrochlorothiazide 20-25 mg Tablet 1 tab PO DAILY albuterol sulfate 90 mcg/actuation Hfa Aerosol Inhaler 1 puff INHALATION Q6H PRN (Reason: SOB) simethicone 80 mg Tablet,Chewable 80 mg PO QHS PRN (Reason: Indigestion) calcium carbonate-vitamin D3 [Calcium 600 + D(3)] 600 mg-10 mcg (400 unit) Tablet 1 tab PO MOWEFR omega 0-nej-gtz-fish oil [Fish Oil] 1,200 (144-216) mg Capsule 1,200 cap PO DAILY Trelegy Ellipta 100-62.5-25 mcg Blister With Device 1 inh INHALATION DAILY Referrals / Follow Up: Vu Aguilera MD [Primary Care Provider] - Within 1 Week Disposition Disposition (needs filled in before D/C Order can be placed): Home, Self Care Charges/Coding Visit Charges Inpatient E&M: 87024 Disch Hosp >30min
--- NOTE | 2023-01-22 11:32 | CASEMGMT ---
RN?CM?ANESTHETIC ASSISTANT?CM?to room to meet with patient for initial transition planning/care coordination?assessment.?RN?CM?introduced self and role at [facility].? Pt voices understanding and consents to?assessment?at this time.? Pt resting in bed in no distress at this time.? Pt is A/O at this time and answers all questions appropriately.?? Care providers, pharmacy, and demographics verified/updated at this time. PCP: Dr Vu Aguilera Specialists: Dr Mackenzie-pulmonology Preferred Pharmacy: [facility]. Prednisone has been e-scribed to [facility]. Call to Henry @ [facility] pharmacy and he will call [employer] [facility] to have script tx'd to [facility]. He is aware pt is discharging home today and would like med delivered to her room. Insurance: [employer] Prescription Benefit:?Yes Living Will/HPOA:? Pt does not currently have LW/HCPOA and declines info at this time.? Pt made aware that she can contact as an out-pt and make appt in the future if she decides she would like to talk with someone about this or would like to utilize [facility] social work for advanced directive completion.? LNOK: [place] Living Arrangements: Lives w/her in 2-story home w/2 steps to enter w/railing. FFSU. Independent w/ADL's and IADL's. Transportation:?Pt states drives self and states no transportation concerns at this time.? also drives and will be picking pt up to take her home today after he gets off of work. DME: States has the following DME:?shower chair, nebulizer, pulse ox, O2 through [facility]. Pt states she wears 2 L/M during the day and 4 L/M @ HS. She has a portable O2 concentrator but states it is and she does not have the lithopone charger w/her. She has a concentrator @ home and a back-up O2 tank but no portable O2 tanks. Call to [facility] and spoke w/Jane. Per Deshaun, pt's home O2 orders are for 4 L/M @ HS only, but that order is from 2019 and they do not have any orders since then. Home O2 testing has been completed. Pt qualifies for O2 @ 3 L/M @ rest and 4 L/M w/exertion and Jane made aware pt is discharging home today and will need portable O2 tank delivered to [facility] today. Per Jane, pt gets her O2 from [facility] in [place] and she asked for new updated O2 script be faxed to their office @ fax # [phone]. She states she will contact [facility]'s jitney driver and have portable tank delivered today. Pt states no need for further DME at this time.? HHC/SNF: No hx of either. Denies need for HHC and no needs identified. Palliative: Pt qualifies for Palliative referral. Discussed palliative w/pt and questions answered. Pt states will think about it and may be interested later, but not at this time. Provided w/Palliative handout. Pt Link: Discussed Pt Link. Pt is agreeable to consult. Order placed. Pt wishes to return home and states has no concerns with going home at time of discharge.? PLAN:??Home w/Pt Link consult Zelalem BSN?RN?CM
--- NOTE | 2023-01-22 13:30 | CASEMGMT ---
RN EZRA received updated home oxygen script and faxed to [facility]. RN EZRA arranged for portable tank to be delivered to patient's room prior to discharge.
[2023-01-22] MEDS: 0.9% Saline Lock 10 ML Syringe IV (13:46)
--- NOTE | 2023-01-22 15:33 | CHAPLAIN ---
Type of Pastoral Visit _x__ Initial Visit ___ Follow-up Visit ___ On-call Visit ___ General Patient Visit ___ Spiritual Assessment ___ Family Conference ___ Bereavement ___ Rapid Response ___ Code Blue ___ Other (describe below) Pastoral Care Referral From _x__ Patient ___ Family ___ Nurse ___ Physician ___ [employer] ___ [employer] [employer] [facility] ___ Other (describe below) Sacrament/Intervention _x__ Active listening ___ Anointing ___ Buddhism ___ Bereavement ___ Communion ___ Shayla exploration ___ ___ Life review ___ Prayer ___ Reconciliation ___ Sacrament of Sick ___ Supportive presence ___ Wedding ___ Other (describe below) Pastoral Comments at first attempt the patient was sleeping; at second attempt to visit the patient is sitting on bed and dressed; pt states she is going home and waiting for to pick her up; pt says that she is doing better and is glad to go home; pt says that she has no other needs right now but is grateful for the offer of support;
--- NOTE | 2023-01-27 14:20 | CCN.REFER ---
PATIENT LINK UNABLE TO CONNECT WITH PATIENT TO DISCUSS PATIENT LINK. MULTIPLE VOICEMAILS LEFT.
== END 2023-01-22 15:10 | disposition home or self-care (01) | DRG 190 ==
LOC: ED 09:40 → PCU 11:35
PROVIDERS: Admitting Provider Family Medicine; Emergency Provider Emergency Medicine; PCP Family Medicine; Visit Provider Family Medicine
DX: J44.1 Chronic obstructive pulmonary disease with (acute) exacerbation (principal); J96.01 Acute respiratory failure with hypoxia; I10 Essential (primary) hypertension; F17.210 Nicotine dependence, cigarettes, uncomplicated; Z99.81 Dependence on supplemental oxygen; Z79.899 Other long term (current) drug therapy
CPT/HCPCS: 36415; 71045; 80048; 82803; 83880; 84484; 85025; 87811; 93005; 94640; 94668; 99285; A4216

== ENCOUNTER → 2024-01-07 | Outpatient (CLI) | payer MEDICARE, SELFPAY | END | disposition home or self-care (01) | LOC: MTLAB 09:24 | PROVIDERS: PCP Family Medicine; Referring Provider Internal Medicine Pulmonary Disease; Visit Provider Internal Medicine Pulmonary Disease | DX: J44.9 Chronic obstructive pulmonary disease, unspecified (principal); R05.9 Cough, unspecified | CPT/HCPCS: 87070; 87077; 87186; 87205 ==

== ENCOUNTER 2024-06-07 09:45 | Inpatient (IN) | payer MEDICARE, SELFPAY ==
[2024-06-07] VITALS (34 sets, daily range): BP systolic 106–169; BP diastolic 48–114; PULSE 67–101; RESP 12–33; TEMP 36.1–37.1; O2SAT 73–100; BMI 32.0; BMI 33.9
--- NOTE | 2024-06-07 10:00 | RAD_ITS ---
EXAM: XR CHEST, 1 VIEW CLINICAL INDICATION: Dyspnea TECHNIQUE: Frontal view of the chest. COMPARISON: XR Chest dated 01/21/2023 FINDINGS: LUNGS AND PLEURAL SPACES: Infiltrate or edema suggested within the right upper lobe. No pleural effusion or pneumothorax. Pulmonary vascular congestion. HEART: Normal heart size. MEDIASTINUM: No mediastinal or hilar mass. BONES/JOINTS: No acute abnormality. RAD/Chest 1 View (Portable) IMPRESSION: Poorly vascular congestion. Focal infiltrate or edema of the right upper lobe. Electronically Signed: David Magana MD at 11:32 EST ,
--- NOTE | 2024-06-07 10:01 | EKG12_ITS ---
Test Reason : Blood Pressure : */* mmHG Vent. Rate : 78 BPM Atrial Rate : 78 BPM P-R Int : 138 ms QRS Dur : 90 ms QT Int : 374 ms P-R-T Axes : 68 13 73 degrees QTcB Int : 426 ms Sinus rhythm with marked sinus arrhythmia with occasional Premature ventricular complexes Otherwise normal ECG Confirmed by RU DAVIS, LUDIVINA ([id number]), video news editor JANETT ATKINSON ([id number]) on 06/09/2024 6:23:46 AM Referred By: Confirmed By: LUDIVINA VENCES MD
--- NOTE | 2024-06-07 10:05 | EDS_ITS ---
HPI History of Present Illness Chief Complaint: Shortness of Breath Informant: patient, spouse/S.O. and EMS Narrative Narrative: 63-year-old female with a history of COPD presenting to the emergency room with a chief complaint of dyspnea. EMS was called to the house where they state that they found the patient tripoding and hypoxic. She was given breathing treatments and placed on CPAP. EMS notes end-tidal CO2 up to 60. Patient chronically wears 5 L at home. notes that she has been experiencing rhinorrhea and sinus infection over the past several days. They states that her work of breathing has significantly improved since being put on the CPAP. No reported fever or diarrhea. No vomiting. Has been states that this morning her symptoms did seem to start rather abruptly. She had already been up for the day. [facility] Medical History COPD (chronic obstructive pulmonary disease) Wears glasses History of steroid therapy Easy bruising Restless legs Back pain Heartburn Smoker On home oxygen therapy Shortness of breath on exertion Leg cramps History of pain when walking Hypertension Home Medications ?Medication ?Instructions ?Recorded ?Last Taken ?Type albuterol sulfate 90 mcg/actuation 1 puff inhalation Q6H PRN SOB 09/19/21 Unknown History aerosol inhaler calcium 600 mg (as 1 tab PO MOWEFR 09/19/21 Unknown History carbonate)-vitamin D3 10 mcg (400 unit) tablet (Calcium 600 + D(3)) fluticasone fur. 100 mcg-umeclid 1 inh inhalation DAILY 09/19/21 Unknown History 62.5 mcg-vilant 25 mcg inhalat.powder (Trelegy Ellipta) lisinopril 20 1 tab PO DAILY 09/19/21 09/24/21 08:00 History mg-hydrochlorothiazide 25 mg tablet naproxen sodium 220 mg tablet 220 mg PO BID PRN Pain 09/19/21 Unknown History (Aleve) omega 9-fgr-wtu-fish oil 1,200 mg 1,200 cap PO DAILY 09/19/21 Unknown History (144 mg-216 mg) capsule (Fish Oil) simethicone 80 mg chewable tablet 80 mg PO QHS PRN Indigestion 09/19/21 Unknown History prednisone 10 mg tablet 10 mg PO DAILY #32 tabs 01/22/23 Unknown Rx Allergy/AdvReac Type Severity Reaction Status Date / Time Sulfa (Sulfonamide Allergy Angioedema Verified 06/07/24 09:51 Antibiotics) Family History Other Cancer Heart disease Surgical History Hx of colonoscopy Hx of right cataract extraction Hx of left cataract extraction Hx of appendectomy Hx of tonsillectomy Social History Smoking Status: Current some day smoker tobacco type: cigarettes ROS ROS ED Constitutional Constitutional ED: Denies chills or weight loss Eyes Eyes: Denies change in vision or diplopia ENT ENT ED: Reports rhinorrhea; Denies ear pain or sore throat Cardiovascular Cardiovascular: Denies chest pain, orthopnea, palpitations or racing heartbeat Respiratory/Chest Respiratory/Chest: Reports cough, dyspnea and dyspnea on exertion; Denies orthopnea Gastrointestinal Gastrointestinal: Denies abdominal pain, diarrhea, nausea or vomiting Genitourinary Genitourinary ED: Denies dysuria, hematuria or urinary frequency Musculoskeletal Musculoskeletal: Denies arthralgias or myalgias Integumentary Denies abscess or rash Neurologic Neurologic: Denies headache(s) or weakness Psychiatric Psychiatric: Denies anxiety, depression, suicidal ideation or suicidal thoughts Endocrine Endocrinology: Denies polydipsia, polyphagia or polyuria Allergic/Immunologic Allergic/Immunologic ED: Denies mouth swelling, tongue swelling or urticaria EXAM Physical Exam Narrative Exam Narrative: Patient is lethargic but responsive to my voice. She makes intentional movements to wipe her nose. Const Vital Signs: 06/07/24 09:46 06/07/24 09:51 06/07/24 09:55 Temperature 97.8 F Temperature Source Oral Pulse Rate 92 80 Respiratory Rate 29 H 33 H Respiratory Effort Labored Respiratory Depth Normal Respiratory Pattern Gasping Tachypnea Blood Pressure 160/77 H Blood Pressure Mean 104 Pulse Ox 73 75 Oxygen Delivery Method Nasal Cannula Bi-pap Oxygen Flow Rate (L/min) 8 Fraction of Inspired Oxygen (FIO2) 70 100 06/07/24 10:05 06/07/24 10:20 06/07/24 10:50 Temperature Temperature Source Pulse Rate 80 81 81 Respiratory Rate 24 H 17 22 H Respiratory Effort Respiratory Depth Respiratory Pattern Tachypnea Normal Tachypnea Blood Pressure Blood Pressure Mean Pulse Ox 100 96 Oxygen Delivery Method Oxygen Flow Rate (L/min) Fraction of Inspired Oxygen (FIO2) 70 50 06/07/24 11:00 06/07/24 11:10 06/07/24 12:00 Temperature 98.3 F 98.6 F Temperature Source Temporal Temporal Pulse Rate 82 76 Respiratory Rate 16 18 Respiratory Effort Respiratory Depth Respiratory Pattern Blood Pressure 132/82 H 131/72 H Blood Pressure Mean 98 91 Pulse Ox 95 95 96 Oxygen Delivery Method Bi-pap Bi-pap Bi-pap Oxygen Flow Rate (L/min) Fraction of Inspired Oxygen (FIO2) 06/07/24 12:15 06/07/24 12:30 06/07/24 12:31 Temperature Temperature Source Pulse Rate 89 83 82 Respiratory Rate 25 H 14 16 Respiratory Effort Respiratory Depth Respiratory Pattern Blood Pressure 138/114 H 159/79 H Blood Pressure Mean 122 99 Pulse Ox 93 93 93 Oxygen Delivery Method Oxygen Flow Rate (L/min) Fraction of Inspired Oxygen (FIO2) 06/07/24 12:45 06/07/24 12:56 06/07/24 13:00 Temperature 98.6 F Temperature Source Pulse Rate 75 76 87 Respiratory Rate 16 18 18 Respiratory Effort Respiratory Depth Respiratory Pattern Blood Pressure 169/52 H 131/72 H 133/94 H Blood Pressure Mean 86 91 103 Pulse Ox 92 96 91 Oxygen Delivery Method Oxygen Flow Rate (L/min) Fraction of Inspired Oxygen (FIO2) Positive well nourished, well developed and obese General Appearance ED: well developed Nutritional Appearance: obese HEENT Reports normocephalic, head/scalp atraumatic and moist mucous membranes Eyes PERRL and EOMs intact bilaterally Neck no lymphadenopathy, supple and no JVD Neck Narrative: Bluish lips and fingernails Resp Auscultation: diminished lung sounds Cardio regular rate, regular rhythm and no murmurs GI normal to inspection, nondistended, normoactive bowel sounds and non-tender Palpation: soft Back/Spine no CVA tenderness and normal ROM Extremity normal to inspection General Extremety ED: Negative for edema General Extremity: Negative for edema Neuro oriented x3 and CN's II-XII intact bilaterally Sensorium / Orientation: lethargic Motor Exam: strength 5/5 throughout Psych Psych Narrative: Unable to assess Mood & Affect: tearful Skin no rashes or lesions noted and no wounds MDM MDM MDM Narrative Medical decision making narrative: Differential diagnosis includes but not limited to COPD exacerbation bronchospasm CO2 narcosis pulmonary embolism acute coronary syndrome pneumothorax pleural effusion congestive heart failure Patient had received breathing treatment and Solu-Medrol via EMS. Patient was placed on BiPAP. Initial ABG was obtained which shows critical high CO2 level a respiratory acidosis and hypoxemia. I do believe that this was arterial. While the ABG was being drawn her pulse oximeter on the monitor was reading around 50% with a good waveform. Eventually she started to recover and has been doing well on the BiPAP. My independent interpretation of the chest x-ray is abnormal mediastinal contours possible due to rotation. No obvious pneumothorax or pleural effusions is noted. White count is 9.6 with hemoglobin 13.7 platelet count is 221. INR 0.9 PTT 23.8. Glucose 260 normal sodium and potassium. Normal LFTs. Troponin is 22. EKG demonstrates a sinus rhythm with sinus arrhythmia at a rate of 78 bpm. Noted PVCs. Because of how rapid the onset of symptoms and the significant hypoxia a CTA of the chest was obtained. This is negative for pulmonary embolism or obvious infiltrate. Patient has been slowly improving. She had already received Solu-Medrol by EMS. We have maintained her on the BiPAP. Plan will be admission History & Record Review Discussion w/independent historian: EMS personnel and Patient Lab Data Attestation: I reviewed the patient's lab results. Labs: Laboratory Results - last 24 hr 06/07/24 09:47 WBC 9.6 RBC 4.55 Hgb 13.7 Hct 48.2 H MCV 105.9 H MCH 30.1 MCHC 28.4 L RDW Std Deviation 53.3 H RDW Coeff of Keila 13.6 Plt Count 221 MPV 9.7 Immature Gran % (Auto) 3.000 H Neut % (Auto) 72.6 H Lymph % (Auto) 15.6 L Taylor % (Auto) 7.2 Eos % (Auto) 0.7 Baso % (Auto) 0.9 Absolute Neuts (auto) 7.0 Absolute Lymphs (auto) 1.50 Nucleated RBC % 0 PT 12.5 INR 0.9 APTT 23.8 L Sodium 142 Potassium 3.8 Chloride 89 L Carbon Dioxide > 45.0 H* Anion Gap TNP BUN 24 H Creatinine 0.63 Estim Creat Clear Calc 81.99 Est GFR (MDRD) Af Amer 122 Est GFR (MDRD) Non-Af 101 BUN/Creatinine Ratio 38.2 H Glucose 260 H Calcium 8.9 Total Bilirubin 0.60 Direct Bilirubin 0.18 AST 24 ALT 67 H Alkaline Phosphatase 69 Troponin I High Sens 22 Total Protein 7.2 Albumin 3.6 Globulin 3.6 ABG Data ABG results: ABG 06/07/24 10:04 Specimen Type ART Sample Site R Radial pH 7.28 L Bicarbonate Actual 53.3 H Total CO2 > 50 Base Excess 27 H O2 Saturation 25 L O2 % 100.0 ABG pCO2 113.1 H* ABG pO2 21 L* Brody Test Positive O2 Delivery Device BiPAP Vent Mode Not entered POC PEEP 8 Crit Call To/Read Back Yes Blood Gas Notified Whom hoene Blood Gas Notified Time 10:07:33 Radiography Diagnostic Testing: Clinical Impression(s) from Imaging Studies Chest X-Ray 06/07/24 10:00 IMPRESSION: Poorly vascular congestion. Focal infiltrate or edema of the right upper lobe. Electronically Signed: David Magana MD at 11:32 EST , Chest CTA 06/07/24 10:56 IMPRESSION: 1. No evidence of acute pulmonary embolism. 2. Bilateral upper lobe interstitial edema. 3. Extensive pulmonary emphysema. 4. Small right pleural effusion and minimal ascites. Recommendations: Pulmonary emphysema is an independent risk factor for lung cancer. Recommend annual low-dose CT lung cancer screening. Electronically Signed: aDvid Magana MD at 12:27 EST , EKG Initial EKG: Attestation: I personally reviewed and interpreted this EKG as follows: Comments: Sinus rhythm with sinus arrhythmia and frequent PVCs. Management Discussion w/another healthcare provider: Hospitalist (Dr Gill) Critical Care Time Critical Care Time: Yes Critical care time (excluding procedures): 30-74 minutes (35 min), Including time spent:, Discussing w/Patient &/or Family/[employer] Reclamation Engineer, Discussing w/Consultants, Arranging Admission or Transfer and Performing Direct Patient Care at Bedside Discharge Plan Dx/Rx/DC Orders Clinical Impression: Acute upper respiratory infection, Acute exacerbation of chronic obstructive pulmonary disease (COPD), Acute respiratory failure with hypoxia and hypercarbia Disposition Disposition: [facility]
[2024-06-07 10:09] LABS: Allen Test Positive; Base Excess 27 mmol/L (-2 to +2); Bicarbonate 53.3 mmol/L (22-26); Blood Gas Specimen Type ART; Mode Not entered; O2 Delivery Device BiPAP; PEEP 8; PO2 21 mmHG (75-100); SITE R Radial; SO2 25 % (95-99); Total Carbon Dioxide > 50 mmol/L; pCO2 113.1 mmHg (35-45); pH 7.28 (7.35-7.45)
[2024-06-07 10:21] LABS: Basophil# 0.09 X10^3/uL; Basophil% 0.9 % (0-1); Eosinophil# 0.07 X10^3/uL; Eosinophils% 0.7 % (0-5); Hematocrit 48.2 % (37-47); Hemoglobin 13.7 g/dL (12.0-15.0); Lymphocyte % 15.6 % (19-41); Mean Corp Hgb Conc 28.4 g/dL (32-36); Mean Corpuscular Hgb 30.1 pg (27.0-32.0); Mean Corpuscular Volume 105.9 fL (81-99); Mean Platelet Vol. 9.7 fl (6.2-12.0); Monocyte# 0.69 X10^3/uL; Monocyte% 7.2 % (0-10); NRBC Flagged by Analyzer 0 % (0-5); Neutrophil # 6.97 X10^3/uL (2.7-7.7); Neutrophil % 72.6 % (47-70); Platelet Count 221 K/mm3 (150-450); RBC Distribution Width CV 13.6 % (11.6-14.6); RBC Distribution Width SD 53.3 fl (35.1-43.9); Red Blood Count 4.55 M/mm3 (4.2-5.4); White Blood Count 9.6 K/mm3 (4.4-11.0)
[2024-06-07 10:31] LABS: International Normalized Ratio 0.9; Prothrombin Time (Protime)PT. 12.5 SECONDS (11.7-14.9)
[2024-06-07 10:32] LABS: Partial Thromboplast Time 23.8 Seconds (24.1-36.2)
[2024-06-07 10:46] LABS: AST(SGOT) 24 U/L (15-37); Alanine Aminotransfer ALT/SGPT 67 U/L (13-56); Albumin, Serum 3.6 g/dL (3.2-5.0); Alkaline Phosphatase 69 U/L (45-117); BUN 24 mg/dL (7-18); BUN/Creat Ratio 38.2 RATIO (10-20); Bilirubin, Direct 0.18 mg/dL (0.00-0.30); Calcium,Total 8.9 mg/dL (8.5-10.1); Carbon Dioxide > 45.0 mmol/L (21.0-32.0); Chloride 89 mmol/L (98-107); Creatinine, Serum 0.63 mg/dL (0.55-1.02); EST Glomerular Filtration Rate 101 mL/min (>60); Est Glom Filt Rate - Afr Amer 122 mL/min (>60); Estimated Creatinine Clearance 81.99 ml/min; Globulin 3.6 g/dL (2.2-4.2); Glucose 260 mg/dL (74-106); Potassium 3.8 mmol/L (3.5-5.1); Protein, Total 7.2 g/dL (6.4-8.2); Sodium Level 142 mmol/L (136-145); Troponin-I HS 22 pg/mL (3.0-54.0)
[2024-06-07] MEDS: Ipratropium/Albuterol Sulfate 3 ML AMPUL.NEB INHALATION ×2 (10:50→15:00)
--- NOTE | 2024-06-07 10:56 | CT_ITS ---
EXAM: CT ANGIOGRAPHY CHEST WITH INTRAVENOUS CONTRAST CLINICAL INDICATION: pulmonary embolism, copd, sob TECHNIQUE: Helically acquired angiography images were obtained of the chest with intravenous contrast. This CT exam was performed using one or more of the following dose reduction techniques: automated exposure control, adjustment of the mA and/or kV according to patient size, and/or use of iterative reconstruction technique. MIP reconstructed images were created and reviewed. CONTRAST: IV 100mL [id number]-370 COMPARISON: Chest radiograph 06/07/2024, CT chest 05/09/2022 FINDINGS: PULMONARY ARTERIES: Normal. Normal in caliber. No evidence of pulmonary embolism. AORTA: Normal. Normal in caliber. No evidence of dissection. GREAT VESSELS OF AORTIC ARCH: Normal. Normal in caliber. No evidence of dissection. LUNGS AND PLEURAL SPACES: Small right pleural effusion with mild compression atelectasis of the right lower lobe. The diffuse centrilobular pulmonary emphysema again noted as well as 8.5 cm bullous changes of the right lower lobe. Interstitial thickening within both upper lobes of lungs suggestive of pulmonary edema. No mass. No pneumothorax. HEART: Normal. No pericardial effusion. Normal heart size. Coronary artery calcification present. MEDIASTINUM: Normal. No mediastinal or hilar adenopathy. Esophagus is unremarkable. No hiatal hernia. BONES/JOINTS: Normal. No suspicious lytic or blastic abnormality. LIVER: Stable hepatic cyst. No specific follow-up indicated. INTRAPERITONEAL SPACE: Minimal ascites within the right upper quadrant. CT/CTA Chest W/WO Contrast IMPRESSION: 1. No evidence of acute pulmonary embolism. 2. Bilateral upper lobe interstitial edema. 3. Extensive pulmonary emphysema. 4. Small right pleural effusion and minimal ascites. Recommendations: Pulmonary emphysema is an independent risk factor for lung cancer. Recommend annual low-dose CT lung cancer screening. Electronically Signed: David Magana MD at 12:27 EST ,
--- NOTE | 2024-06-07 13:35 | HP.PCM.HOS_ITS ---
HPI - General General Date of Admission: 06/07/24 Date of Service: 06/07/24 Chief Complaint: Shortness of breath HPI Narrative YVON PATIÑO, is a 63 F who presents shortness of breath. Patient has history of COPD and is on 4 L of oxygen at baseline and continues to smoke was brought to the emergency department by the on account of increasing lethargy as well as difficulty breathing. Per patient's who provided much of the history patient has apparently been battling an upper respiratory tract infection a couple of days prior to admission. In the emergency department patient was noted to have significant acute hypoxic and hypercapnic respiratory failure placed on noninvasive ventilation and decision made to admit patient to the intensive care unit for further management [facility] Medical History COPD (chronic obstructive pulmonary disease) Wears glasses History of steroid therapy Easy bruising Restless legs Back pain Heartburn Smoker On home oxygen therapy Shortness of breath on exertion Leg cramps History of pain when walking Hypertension Home Medications ?Medication ?Instructions ?Recorded ?Last Taken ?Type albuterol sulfate 90 mcg/actuation 1 puff inhalation Q6H PRN SOB 09/19/21 Unknown History aerosol inhaler calcium 600 mg (as 1 tab PO MOWEFR 09/19/21 Unknown History carbonate)-vitamin D3 10 mcg (400 unit) tablet (Calcium 600 + D(3)) fluticasone fur. 100 mcg-umeclid 1 inh inhalation DAILY 09/19/21 Unknown History 62.5 mcg-vilant 25 mcg inhalat.powder (Trelegy Ellipta) lisinopril 20 1 tab PO DAILY 09/19/21 09/24/21 08:00 History mg-hydrochlorothiazide 25 mg tablet naproxen sodium 220 mg tablet 220 mg PO BID PRN Pain 09/19/21 Unknown History (Aleve) omega 7-lwy-usp-fish oil 1,200 mg 1,200 cap PO DAILY 09/19/21 Unknown History (144 mg-216 mg) capsule (Fish Oil) simethicone 80 mg chewable tablet 80 mg PO QHS PRN Indigestion 09/19/21 Unknown History prednisone 10 mg tablet 10 mg PO DAILY #32 tabs 01/22/23 Unknown Rx Allergy/AdvReac Type Severity Reaction Status Date / Time Sulfa (Sulfonamide Allergy Angioedema Verified 06/07/24 09:51 Antibiotics) Family History Other Cancer Heart disease Surgical History Hx of colonoscopy Hx of right cataract extraction Hx of left cataract extraction Hx of appendectomy Hx of tonsillectomy Social History Smoking Status: Current some day smoker tobacco type: cigarettes ROS ROS Narrative Unable to assess given patient lethargy Vital Signs Vital Signs Vital Signs: 06/07/24 09:46 06/07/24 09:51 06/07/24 09:55 Temperature 97.8 F Temperature Source Oral Pulse Rate 92 80 Respiratory Rate 29 H 33 H Respiratory Effort Labored Respiratory Depth Normal Respiratory Pattern Gasping Tachypnea Blood Pressure 160/77 H Blood Pressure Mean 104 Pulse Ox 73 75 Oxygen Delivery Method Nasal Cannula Bi-pap Oxygen Flow Rate (L/min) 8 Fraction of Inspired Oxygen (FIO2) 70 100 06/07/24 10:05 06/07/24 10:20 06/07/24 10:50 Temperature Temperature Source Pulse Rate 80 81 81 Respiratory Rate 24 H 17 22 H Respiratory Effort Respiratory Depth Respiratory Pattern Tachypnea Normal Tachypnea Blood Pressure Blood Pressure Mean Pulse Ox 100 96 Oxygen Delivery Method Oxygen Flow Rate (L/min) Fraction of Inspired Oxygen (FIO2) 70 50 06/07/24 11:00 06/07/24 11:10 06/07/24 12:00 Temperature 98.3 F 98.6 F Temperature Source Temporal Temporal Pulse Rate 82 76 Respiratory Rate 16 18 Respiratory Effort Respiratory Depth Respiratory Pattern Blood Pressure 132/82 H 131/72 H Blood Pressure Mean 98 91 Pulse Ox 95 95 96 Oxygen Delivery Method Bi-pap Bi-pap Bi-pap Oxygen Flow Rate (L/min) Fraction of Inspired Oxygen (FIO2) 06/07/24 12:15 06/07/24 12:30 06/07/24 12:31 Temperature Temperature Source Pulse Rate 89 83 82 Respiratory Rate 25 H 14 16 Respiratory Effort Respiratory Depth Respiratory Pattern Blood Pressure 138/114 H 159/79 H Blood Pressure Mean 122 99 Pulse Ox 93 93 93 Oxygen Delivery Method Oxygen Flow Rate (L/min) Fraction of Inspired Oxygen (FIO2) 06/07/24 12:45 06/07/24 12:56 06/07/24 13:00 Temperature 98.6 F Temperature Source Pulse Rate 75 76 87 Respiratory Rate 16 18 18 Respiratory Effort Respiratory Depth Respiratory Pattern Blood Pressure 169/52 H 131/72 H 133/94 H Blood Pressure Mean 86 91 103 Pulse Ox 92 96 91 Oxygen Delivery Method Oxygen Flow Rate (L/min) Fraction of Inspired Oxygen (FIO2) Weight Weight: 92.8 kg Body Mass Index (BMI) 32.0 Physical Exam Narrative GENERAL: Lethargic, on BiPAP HEENT: Atraumatic; normocephalic EYES; Anicteric, Normal Conjunctiva NECK; supple, normal thyroid, RESPIRATORY: Diminished to auscultation CARDIOVASCULAR: Regular S1 S2, GI: soft, normoactive bowel sounds, : No Renal angle tenderness; EXTREMITIES: No edema, no clubbing, MUSCULOSKELETAL: no muscle wasting NEURO: no lateralizing signs. SKIN: No Rash PSYCH; Flat affect Results Lab / Micro Data 06/07/24 09:47 06/07/24 09:47 Labs: Laboratory Results - last 24 hr 06/07/24 09:47: WBC 9.6, RBC 4.55, Hgb 13.7, Hct 48.2 H, MCV 105.9 H, MCH 30.1, MCHC 28.4 L, RDW Std Deviation 53.3 H, RDW Coeff of Keila 13.6, Plt Count 221, MPV 9.7, Immature Gran % (Auto) 3.000 H, Neut % (Auto) 72.6 H, Lymph % (Auto) 15.6 L , Kaufman % (Auto) 7.2, Eos % (Auto) 0.7, Baso % (Auto) 0.9, Absolute Neuts (auto) 7.0, Absolute Lymphs (auto) 1.50, Nucleated RBC % 0, PT 12.5, INR 0.9, APTT 23.8 L, Sodium 142, Potassium 3.8, Chloride 89 L, Carbon Dioxide > 45.0 H*, Anion Gap TNP, BUN 24 H, Creatinine 0.63, Estim Creat Clear Calc 81.99, Est GFR (MDRD) Af Amer 122, Est GFR (MDRD) Non-Af 101, BUN/Creatinine Ratio 38.2 H, Glucose 260 H, Calcium 8.9, Total Bilirubin 0.60, Direct Bilirubin 0.18, AST 24, ALT 67 H, Alkaline Phosphatase 69, Troponin I High Sens 22, Total Protein 7.2, Albumin 3.6, Globulin 3.6 Micro: Microbiology 06/07/24 10:15 Mucosa - Nose SARS-CoV-2, Influenza & RSV (PCR) - Final ABG Data ABG results: ABG 06/07/24 10:04 Specimen Type ART Sample Site R Radial pH 7.28 L Bicarbonate Actual 53.3 H Total CO2 > 50 Base Excess 27 H O2 Saturation 25 L O2 % 100.0 ABG pCO2 113.1 H* ABG pO2 21 L* Brody Test Positive O2 Delivery Device BiPAP Vent Mode Not entered POC PEEP 8 Crit Call To/Read Back Yes Blood Gas Notified Whom hoene Blood Gas Notified Time 10:07:33 Imaging Radiology Impression Chest X-Ray 06/07/24 10:00 IMPRESSION: Poorly vascular congestion. Focal infiltrate or edema of the right upper lobe. Electronically Signed: David Magana MD at 11:32 EST , Chest CTA 06/07/24 10:56 IMPRESSION: 1. No evidence of acute pulmonary embolism. 2. Bilateral upper lobe interstitial edema. 3. Extensive pulmonary emphysema. 4. Small right pleural effusion and minimal ascites. Recommendations: Pulmonary emphysema is an independent risk factor for lung cancer. Recommend annual low-dose CT lung cancer screening. Electronically Signed: David Magana MD at 12:27 EST , Assessment & Plan Assessment/Plan (1) Acute respiratory failure with hypoxia and hypercarbia: (2) Acute exacerbation of chronic obstructive pulmonary disease (COPD): PLAN: Plan Patient is a 63-year-old lady brought to the emergency department by the on account of progressive shortness of breath 1. Acute hypoxic and hypercapnic respiratory failure ? Multifactorial including COPD with acute exacerbation as well as congestive heart failure. CT of the chest obtained was negative for PE patient was however noted to have bilateral upper lobe interstitial edema and extensive pulmonary edema and small right pleural effusion with minimal ascites. Patient admitted to the intensive care unit placed on noninvasive ventilation BiPAP consultation placed to pulmonary medicine 2. COPD with acute exacerbation ? Patient started on bronchodilator treatment, systemic steroid as well as antibiotic therapy. Patient placed on oxygen titrated to keep saturation greater than 90. 3. Acute congestive heart failure ? Type unspecified at this point. Patient was noted to have pulmonary edema on her CAT scan started on furosemide, placed on low-sodium diet strict input and output Daily weights supplemental oxygen and echo ordered for EF assessment 4. Chronic hypoxic respiratory failure ? Patient is on baseline home O2 5. Hypertension ? Blood pressure controlled, home medications continued with dose adjustment as needed 6. Tobacco dependence ? Counseled on cessation, offered nicotine patch for tobacco cravings 7. DVT prophylaxis ? On enoxaparin Time spent in the patient's overall evaluation,decision-making process, review of diagnostic data, adjustment of management, discussion with other providers, nursing nursing and ancillary staff involved in patient's care documentation, 78 minutes Advance planning; had a discussion with patient's who was by the patient's bedside regarding patient clinical condition as well as regarding advanced directives as well as CODE STATUS. Did explain the various scenarios involved ( FULL CODE, DNR CCA, DNR CCA with no intubation, and DNR CC and what each meant) DNR CCA with no intubation. Patient elected for patient to remain ion. Order was placed. Time spent on discussion 18 minutes. Charges/Coding Multi Select Codes Visit Charges Visit Charges: 70207 Init Hosp L3 Hospitalists' Procedures Procedures: 90216 Advncd Care Plan 30 Min
--- NOTE | 2024-06-07 14:12 | ECHOD_ITS ---
Reason For Study: CONGESTIVE HEART FAILURE Procedure This was a 2D Doppler, Color Flow transthoracic echocardiogram. The study was technically difficult. Patient was on CPAP during exam. Exam performed portable in patient room. Left Ventricle Normal LV size. Mild concentric left ventricular hypertrophy. Left ventricular systolic function is normal. The left ventricular ejection fraction is 60 %. No regional wall motion abnormalities noted. Right Ventricle Normal RV size. Normal systolic function. Atria Normal left atrium. Normal right atrium. Mitral Valve Normal mitral valve. Tricuspid Valve Normal tricuspid valve. Mild (1+) tricuspid valve insufficiency. Pulmonary artery systolic pressure is 40 mmHg. Great Vessels Normal aortic root. Pericardium/Pleural No pericardial effusion. MMode/2D Measurements & Calculations LVIDd: 5.0 cm IVSd: 1.4 cm LVOT diam: 1.9 cm LVIDs: 3.0 cm LVPWd: 1.2 cm LVOT area: 2.8 cm2 RVDd: 3.8 cm FS: 39.7 % asc Aorta Diam: 3.5 cm LAV(MOD-bp): 31.5 ml LVAd ap4: 20.4 cm2 LAV(MOD-bp) Indexed: 15.1 ml/m2 LVLd ap4: 7.4 cm LAV(MOD-sp2): 36.3 ml EDV(MOD-sp4): 47.0 ml LAV(MOD-sp4): 26.0 ml EDV(sp4-el): 48.1 ml LVAs ap4: 10.7 cm2 LVLs ap4: 6.2 cm ESV(MOD-sp4): 15.6 ml ESV(sp4-el): 15.7 ml EF(MOD-sp4): 66.8 % EF(sp4-el): 67.3 % SV(MOD-sp4): 31.4 ml SV(MOD-sp2): 40.7 ml LVAd ap2: 20.9 cm2 LVLd ap2: 7.2 cm SI(MOD-sp4): 15.0 ml/m2 SI(MOD-sp2): 19.5 ml/m2 EDV(MOD-sp2): 53.8 ml EDV(sp2-el): 51.5 ml LVAs ap2: 9.6 cm2 LVLs ap2: 6.3 cm ESV(MOD-sp2): 13.1 ml ESV(sp2-el): 12.4 ml EF(MOD-sp2): 75.7 % SV(sp4-el): 32.4 ml Ao sinus diam: 3.[address] Junction: 2.9 cm LA A4 area: 13.2 cm2 LA dimension(2D): 3.8 cm RA A4 area: 17.6 cm2 TAPSE: 1.9 cm Time Measurements MV dec time: 0.26 sec Doppler Measurements & Calculations MV E max ayaz: 116.4 cm/sec Lat Peak E' Ayaz: 12.1 cm/sec Med Peak E' Ayaz: 10.0 cm/sec MV A max ayaz: 105.3 cm/sec E/E' lat: 9.6 E/E' med: 11.6 MV E/A: 1.1 Ao V2 max: 206.2 cm/sec LV V1 max: 155.5 cm/sec MV dec slope: 442.5 cm/sec2 Ao max P.0 mmHg LV V1 max P.7 mmHg Ao V2 mean: 144.7 cm/sec LV V1 mean P.5 mmHg Ao mean P.3 mmHg LV V1 mean: 124.1 cm/sec Ao V2 VTI: 36.3 cm LV V1 VTI: 28.3 cm AV (velocity ratio): 0.78 ALMITA(I,D): 2.2 cm2 ALMITA(V,D): 2.1 cm2 SV(LVOT): 79.4 ml PA V2 max: 123.9 cm/sec TR max ayaz: 306.8 cm/sec TR max P.6 mmHg ECHO/Echo Complete Interpretation Summary Normal LV size. Left ventricular systolic function is normal. The left ventricular ejection fraction is 60 %. Mild concentric left ventricular hypertrophy. Ordering Physician: Jim Gill Performed By: Falguni Burk RDCS
[2024-06-07] MEDS: 0.9% Normal Saline (100mL Bag) 100 ML 15 ML IV (14:47)
[2024-06-07] MEDS: Furosemide 40 MG/4 ML Vial IV ×2 (14:48→20:58)
[2024-06-07] MEDS: 0.9% Saline Lock 10 ML Syringe IV ×2 (14:48→23:40)
[2024-06-07] MEDS: Azithromycin 500 MG in 0.9% Normal Saline (250mL Bag) 250 ML 250 MG IV (14:56)
[2024-06-07 15:58] LABS: BNP,B-Type NATRIURETIC PEPTIDE 115.4 pg/mL (0-100)
[2024-06-07] MEDS: Albuterol 2.5 MG/3 ML VIAL.NEB. INHALATION (21:10)
[2024-06-07 21:58] LABS: Allen Test Positive; Base Excess > 30 mmol/L (-2 to +2); Bicarbonate 57.2 mmol/L (22-26); Blood Gas Specimen Type ART; Mode Not entered; O2 Delivery Device HFNC; PO2 71 mmHG (75-100); SITE L Radial; SO2 92 % (95-99); Total Carbon Dioxide > 50 mmol/L; pCO2 95.5 mmHg (35-45); pH 7.39 (7.35-7.45)
--- NOTE | 2024-06-07 22:03 | PCM.HOSP.N ---
Hospitalist Note Called by ICU nursing staff to ask if we could transfer this patient to PCU. They reported that they were told by Dr. Zacarias earlier today that that would be okay if beds were required or staffing became a problem. We did check an ABG to make sure that she was stable and her ABG is satisfactory showing a pH of 7.39 improved from 7.29 earlier today with a pCO2 of 95.5 and a pO2 of 71. Currently she is on Airvo at 50 L/min and 50% FiO2 with a sat of 96%. Will transfer to PCU. Would like her to continue BiPAP at at bedtime and with naps.
--- NOTE | 2024-06-07 22:21 | NURSING ---
report called to mayra sen in pcu, pt going to bed 113
[2024-06-08] VITALS (15 sets, daily range): BP systolic 116–147; BP diastolic 52–84; PULSE 73–100; RESP 14–24; TEMP 35.8–37.1; O2SAT 90–97; BMI 33.9
--- NOTE | 2024-06-08 00:06 | NURSING ---
This RN assumed care of the pt at 2305.
[2024-06-08] MEDS: 0.9% Saline Lock 10 ML Syringe IV ×4 (05:10→14:48)
[2024-06-08] MEDS: Furosemide 40 MG/4 ML Vial IV (05:10)
[2024-06-08] MEDS: Ipratropium/Albuterol Sulfate 3 ML AMPUL.NEB INHALATION ×5 (07:10→23:27)
--- NOTE | 2024-06-08 08:26 | PCM.PN.HOSP ---
Reason for Visit Reason for Visit: Diagnoses Chronic obstructive pulmonary disease with (acute) exacerbation (06/07/24) Acute respiratory failure with hypoxia (06/07/24) Acute respiratory failure with hypercapnia (06/07/24) Subjective Subjective Patient is a 63-year-old lady brought to the emergency department by the on account of progressive shortness of breath. An assessment of Acute hypoxic and hypercapnic respiratory failure secondary to a combination of COPD with acute exacerbation as well as congestive heart failure. Patient was placed on noninvasive ventilation admitted to the intensive care unit later transferred to PCU Objective Data Objective Data Vital Signs: Vital Signs Temp Pulse Resp BP Pulse Ox O2 Del Method O2 Flow Rate 98.8 F 73 20 H 134/61 H 94 Airvo 50 06/08/24 06:28 06/08/24 07:11 06/08/24 07:11 06/08/24 06:28 06/08/24 07:11 06/08/24 07:11 06/08/24 07:11 FiO2 50 06/08/24 07:11 Oxygen Flow Rate (L/min) 50 Oxygen Delivery Method Airvo Weight: 98.3 kg Body Mass Index (BMI) 33.9 Intake & Output: Intake and Output for Last 24 Hours 06/06/24 06/07/24 06/08/24 23:59 23:59 23:59 Intake Total 318.25 / 318.25 Output Total 1025 / 1025 Balance -706.75 / -706.75 Lab / Micro Data 06/08/24 07:25 06/08/24 07:25 Labs: Laboratory Results - last 24 hr 06/07/24 09:47: WBC 9.6, RBC 4.55, Hgb 13.7, Hct 48.2 H, MCV 105.9 H, MCH 30.1, MCHC 28.4 L, RDW Std Deviation 53.3 H, RDW Coeff of Keila 13.6, Plt Count 221, MPV 9.7, Immature Gran % (Auto) 3.000 H, Neut % (Auto) 72.6 H, Lymph % (Auto) 15.6 L, Schleicher % (Auto) 7.2, Eos % (Auto) 0.7, Baso % (Auto) 0.9, Absolute Neuts (auto) 7.0, Absolute Lymphs (auto) 1.50, Nucleated RBC % 0, PT 12.5, INR 0.9, APTT 23.8 L, Sodium 142, Potassium 3.8, Chloride 89 L, Carbon Dioxide > 45.0 H*, Anion Gap TNP, BUN 24 H, Creatinine 0.63, Estim Creat Clear Calc 81.99, Est GFR (MDRD) Af Amer 122, Est GFR (MDRD) Non-Af 101, BUN/Creatinine Ratio 38.2 H, Glucose 260 H, Calcium 8.9, Total Bilirubin 0.60, Direct Bilirubin 0.18, AST 24, ALT 67 H, Alkaline Phosphatase 69, Troponin I High Sens 22, B-Natriuretic Peptide 115.4 H, Total Protein 7.2, Albumin 3.6, Globulin 3.6 Micro: Microbiology 06/07/24 10:15 Mucosa - Nose SARS-CoV-2, Influenza & RSV (PCR) - Final ABG Data ABG results: ABG 06/07/24 06/07/24 10:04 21:52 Specimen Type ART ART Sample Site R Radial L Radial pH 7.28 L 7.39 Bicarbonate Actual 53.3 H 57.2 H Total CO2 > 50 > 50 Base Excess 27 H > 30 H O2 Saturation 25 L 92 L O2 % 100.0 70.0 ABG pCO2 113.1 H* 95.5 H* ABG pO2 21 L* 71 L Brody Test Positive Positive O2 Delivery Device BiPAP HFNC Vent Mode Not entered Not entered POC PEEP 8 Crit Call To/Read Back Yes Yes Blood Gas Notified Whom vernon Johnston Blood Gas Notified Time 10:07:33 21:53:50 Radiography Diagnostic Testing: Radiology Impression Chest X-Ray 06/07/24 10:00 IMPRESSION: Poorly vascular congestion. Focal infiltrate or edema of the right upper lobe. Electronically Signed: David Magana MD at 11:32 EST , Chest CTA 06/07/24 10:56 IMPRESSION: 1. No evidence of acute pulmonary embolism. 2. Bilateral upper lobe interstitial edema. 3. Extensive pulmonary emphysema. 4. Small right pleural effusion and minimal ascites. Recommendations: Pulmonary emphysema is an independent risk factor for lung cancer. Recommend annual low-dose CT lung cancer screening. Electronically Signed: David Magana MD at 12:27 EST Reading Location ID and State: [address] [place] [address] Tel , Service support , Physical Exam Narrative GENERAL: Patient is much more awake but remains on BiPAP HEENT: Atraumatic; normocephalic EYES; Anicteric, Normal Conjunctiva NECK; supple, normal thyroid, RESPIRATORY: Diminished to auscultation CARDIOVASCULAR: Regular S1 S2, GI: soft, normoactive bowel sounds, : No Renal angle tenderness; EXTREMITIES: No edema, no clubbing, MUSCULOSKELETAL: no muscle wasting NEURO: no lateralizing signs. SKIN: No Rash PSYCH; Flat affect Assessment & Plan Assessment/Plan (1) Acute respiratory failure with hypoxia and hypercarbia: (2) Acute exacerbation of chronic obstructive pulmonary disease (COPD): PLAN: Plan Patient is a 63-year-old lady brought to the emergency department by the on account of progressive shortness of breath 1. Acute hypoxic and hypercapnic respiratory failure ? Multifactorial including COPD with acute exacerbation as well as congestive heart failure. CT of the chest obtained was negative for PE patient was however noted to have bilateral upper lobe interstitial edema and extensive pulmonary edema and small right pleural effusion with minimal ascites. Patient admitted to the intensive care unit placed on noninvasive ventilation BiPAP consultation placed to pulmonary medicine ? 06/08/2024; patient remains on noninvasive ventilation via BiPAP. Repeat ABG last evening still demonstrated presence of significant hypercapnia 2. COPD with acute exacerbation ? Patient started on bronchodilator treatment, systemic steroid as well as antibiotic therapy. Patient placed on oxygen titrated to keep saturation greater than 90. 3. Acute congestive heart failure ? Type unspecified at this point. Patient was noted to have pulmonary edema on her CAT scan started on furosemide, placed on low-sodium diet strict input and output Daily weights supplemental oxygen and echo ordered for EF assessment ? 06/08/2024; patient is in negative fluid balance of 0.7 L since admission 4. Chronic hypoxic respiratory failure ? Patient is on baseline home O2 5. Hypertension ? Blood pressure controlled, home medications continued with dose adjustment as needed 6. Tobacco dependence ? Counseled on cessation, offered nicotine patch for tobacco cravings 7. DVT prophylaxis ? On enoxaparin Time spent in the patient's overall evaluation,decision-making process, review of diagnostic data, adjustment of management, discussion with other providers, nursing nursing and ancillary staff involved in patient's care documentation, 52 minutes Charges/Coding Visit Charges Inpatient E&M: 47936 Subs Hosp L3
[2024-06-08 08:30] LABS: Absolute Lymphocyte Count 0.59 X10^3/uL (0.83-4.51); Absolute Neutrophil Count 7.7 X10^3/uL (2.0-7.7); Basophil# 0.01 X10^3/uL; Basophil% 0.1 % (0-1); Hematocrit 40.7 % (37-47); Hemoglobin 12.1 g/dL (12.0-15.0); Lymphocyte # 0.59 X10^3/ul (0.83-4.51); Lymphocyte % 6.4 % (19-41); Mean Corp Hgb Conc 29.7 g/dL (32-36); Mean Platelet Vol. 9.9 fl (6.2-12.0); Monocyte# 0.93 X10^3/uL; NRBC Flagged by Analyzer 0 % (0-5); Neutrophil # 7.67 X10^3/uL (2.7-7.7); Neutrophil % 82.6 % (47-70); POSITIVE DIFFERENTIAL YES; Platelet Count 214 K/mm3 (150-450); RBC Distribution Width CV 13.2 % (11.6-14.6); RBC Distribution Width SD 49.1 fl (35.1-43.9); Red Blood Count 4.03 M/mm3 (4.2-5.4); White Blood Count 9.3 K/mm3 (4.4-11.0)
[2024-06-08 09:05] LABS: BUN 24 mg/dL (7-18); BUN/Creat Ratio 48.8 RATIO (10-20); Calcium,Total 9.2 mg/dL (8.5-10.1); Carbon Dioxide > 45.0 mmol/L (21.0-32.0); Chloride 87 mmol/L (98-107); Creatinine, Serum 0.49 mg/dL (0.55-1.02); EST Glomerular Filtration Rate 134 mL/min (>60); Est Glom Filt Rate - Afr Amer 162 mL/min (>60); Estimated Creatinine Clearance 84.42 ml/min; Glucose 95 mg/dL (74-106); Phosphorus 3.1 mg/dL (2.5-4.9); Potassium 3.7 mmol/L (3.5-5.1); Sodium Level 141 mmol/L (136-145)
[2024-06-08] MEDS: Enoxaparin 40 MG/0.4 ML Syringe SC (09:35)
[2024-06-08] MEDS: Azithromycin 500 MG in 0.9% Normal Saline (250mL Bag) 250 ML 250 MG IV (09:37)
--- NOTE | 2024-06-08 10:35 | CON.PCM.CC_ITS ---
Assessment & Plan Assessment/Plan (1) Acute exacerbation of chronic obstructive pulmonary disease (COPD): PLAN: Plan RECOMMENDATIONS: 1. Continue supplemental oxygen to maintain saturations at or above 90%. 2. Agree with empiric PAP therapy with naps and nightly. 3. Continue scheduled bronchodilators and IV steroids. 4. Continue empiric antibiotics. 5. Awaiting results of echocardiogram. 6. Check respiratory viral panel. 7. Continue appropriate DVT prophylaxis. IMPRESSIONS: 1. Acute on chronic combined respiratory failure Most likely multifactorial with underlying advanced age COPD and possible diastolic heart failure contributing. The patient is followed routinely by Dr. Mackenzie of pulmonary medicine and has a baseline oxygen requirement of 4 L/min. She is already on a triple therapy inhaler regimen at her baseline. For now, I agree with continuing current medical therapy including antibiotics, bronchodilators and steroids. CTA chest ruled out pulmonary embolism. Given concerns for pulmonary edema, echocardiogram is currently pending. In the interim, will check respiratory viral panel. Otherwise, continue current supportive care. 2. Chronic tobacco dependency/hypertension/depression/anxiety Complicates care, management, recovery and prognosis. Continue home medications as indicated. Smoking cessation is strongly advised. This note was generated with Scrip-t dictation software. It may contain incorrect words, spelling, and punctuation that were not noted in checking the note before signing. HPI Consult Data Date of Consult: 06/08/24 HPI Narrative Reason for Consultation: COPD exacerbation HPI Narrative: The patient is a 63-year-old female, with a history as outlined below, who presented to the emergency department on June 07 with worsening shortness of breath. The patient has a known history of advanced age COPD and chronic hypoxemic respiratory failure, for which she follows with Dr. Mackenzie pulmonary medicine. The patient does have a current tobacco abuse history, indicating that she smokes 1 to 2 cigarettes/day. She is on a triple therapy inhaler regimen at her baseline. On presentation to the emergency department, the patient was documented to be afebrile and hemodynamically stable. Laboratory evaluation revealed a normal white blood cell count. Due to her presenting respiratory distress, the patient was placed on BiPAP therapy. Her initial ABG demonstrated a pH of 7.28 with a pCO2 113 and pO2 of 21. Her chemistry profile was notable for an elevated bicarbonate of greater than 45 with a normal creatinine. Troponin was negative. BNP was only mildly elevated at 115. COVID, influenza and RSV PCR's were negative. Blood cultures were collected. CTA chest showed no evidence for pulmonary embolism, but did demonstrate significant bilateral emphysematous changes and a small right pleural effusion. The patient was initially placed on BiPAP therapy but has since been weaned to heated high flow oxygen. The patient does report some overall interval improvement in her breathing quality over the last 24 hours. She remains on antimicrobials, bronchodilators and steroids. [facility] Medical History COPD (chronic obstructive pulmonary disease) Wears glasses History of steroid therapy Easy bruising Restless legs Back pain Heartburn Smoker On home oxygen therapy Shortness of breath on exertion Leg cramps History of pain when walking Hypertension Home Medications ?Medication ?Instructions ?Recorded ?Last Taken ?Type albuterol sulfate 90 mcg/actuation 1 puff inhalation Q6H PRN SOB 09/19/21 Unknown History aerosol inhaler calcium 600 mg (as 1 tab PO MOWEFR 09/19/21 Unknown History carbonate)-vitamin D3 10 mcg (400 unit) tablet (Calcium 600 + D(3)) fluticasone fur. 100 mcg-umeclid 1 inh inhalation DAILY 09/19/21 Unknown History 62.5 mcg-vilant 25 mcg inhalat.powder (Trelegy Ellipta) lisinopril 20 1 tab PO DAILY 09/19/21 09/24/21 08:00 History mg-hydrochlorothiazide 25 mg tablet naproxen sodium 220 mg tablet 220 mg PO BID PRN Pain 09/19/21 Unknown History (Aleve) omega 1-ypf-jzk-fish oil 1,200 mg 1,200 cap PO DAILY 09/19/21 Unknown History (144 mg-216 mg) capsule (Fish Oil) simethicone 80 mg chewable tablet 80 mg PO QHS PRN Indigestion 09/19/21 Unknown History prednisone 10 mg tablet 10 mg PO DAILY #32 tabs 01/22/23 Unknown Rx sertraline 100 mg tablet 100 mg PO DAILY mood 06/08/24 Unknown History Allergy/AdvReac Type Severity Reaction Status Date / Time Sulfa (Sulfonamide Allergy Angioedema Verified 06/07/24 09:51 Antibiotics) Family History Other Cancer Heart disease Surgical History Hx of colonoscopy Hx of right cataract extraction Hx of left cataract extraction Hx of appendectomy Hx of tonsillectomy Social History Smoking Status: Current some day smoker tobacco type: cigarettes ROS ROS Narrative 10 systems were reviewed with pertinent positives as noted in the HPI above. Physical Exam Const alert and no apparent distress Constitutional Narrative: Resting comfortably in bed. General Appearance: cooperative HEENT normocephalic and head/scalp atraumatic Eyes EOMs intact bilaterally, conjunctivae normal and no scleral icterus Neck supple General: trachea midline Chest inspection of chest normal Resp Auscultation: diminished lung sounds; Negative for rales, rhonchi or wheezes Cardio regular rate and regular rhythm GI normal to inspection, nondistended, normoactive bowel sounds Extremity General Extremity: edema; Negative for clubbing Skin no rashes or lesions noted Neuro CN's II-XII intact bilaterally, moves all extremities and no focal motor deficits Psych Mood & Affect: anxious Lab / Micro Data 06/08/24 07:25 06/08/24 07:25 Labs: Laboratory Results - last 24 hr 06/07/24 09:47: Sodium 142, Potassium 3.8, Chloride 89 L, Carbon Dioxide > 45.0 H*, Anion Gap TNP, BUN 24 H, Creatinine 0.63, Estim Creat Clear Calc 81.99, Est GFR (MDRD) Af Amer 122, Est GFR (MDRD) Non-Af 101, BUN/Creatinine Ratio 38.2 H, Glucose 260 H, Calcium 8.9, Total Bilirubin 0.60, Direct Bilirubin 0.18, AST 24, ALT 67 H, Alkaline Phosphatase 69, Troponin I High Sens 22, B-Natriuretic Peptide 115.4 H, Total Protein 7.2, Albumin 3.6, Globulin 3.6 06/08/24 07:25: WBC 9.3, RBC 4.03 L, Hgb 12.1, Hct 40.7, MCV 101.0 H, MCH 30.0, MCHC 29.7 L, RDW Std Deviation 49.1 H, RDW Coeff of Keila 13.2, Plt Count 214, MPV 9.9, Immature Gran % (Auto) 0.900, Neut % (Auto) 82.6 H, Lymph % (Auto) 6.4 L, [place] % (Auto) 10.0, Eos % (Auto) 0.0, Baso % (Auto) 0.1, Absolute Neuts (auto) 7.7, Absolute Lymphs (auto) 0.59 L, Nucleated RBC % 0, Sodium 141, Potassium 3.7, Chloride 87 L, Carbon Dioxide > 45.0 H*, Anion Gap TNP, BUN 24 H, C reatinine 0.49 L, Estim Creat Clear Calc 84.42, Est GFR (MDRD) Af Amer 162, Est GFR (MDRD) Non-Af 134, BUN/Creatinine Ratio 48.8 H, Glucose 95, Calcium 9.2, Phosphorus 3.1, Magnesium 2.0 Micro: Microbiology 06/07/24 10:15 Mucosa - Nose SARS-CoV-2, Influenza & RSV (PCR) - Final ABG Data ABG results: ABG 06/07/24 21:52 Specimen Type ART Sample Site L Radial pH 7.39 Bicarbonate Actual 57.2 H Total CO2 > 50 Base Excess > 30 H O2 Saturation 92 L O2 % 70.0 ABG pCO2 95.5 H* ABG pO2 71 L Brody Test Positive O2 Delivery Device HFNC Vent Mode Not entered Crit Call To/Read Back Yes Blood Gas Notified Whom Dr Johnston Blood Gas Notified Time 21:53:50 Imaging Radiology Impression Chest X-Ray 06/07/24 10:00 IMPRESSION: Poorly vascular congestion. Focal infiltrate or edema of the right upper lobe. Electronically Signed: David Magana MD at 11:32 EST , Chest CTA 06/07/24 10:56 IMPRESSION: 1. No evidence of acute pulmonary embolism. 2. Bilateral upper lobe interstitial edema. 3. Extensive pulmonary emphysema. 4. Small right pleural effusion and minimal ascites. Recommendations: Pulmonary emphysema is an independent risk factor for lung cancer. Recommend annual low-dose CT lung cancer screening. Electronically Signed: David Magana MD at 12:27 EST , Charges/Coding Visit Charges Inpatient E&M: 73262 Init Hosp L3
[2024-06-08 11:04] LABS: Procalcitonin 0.06 ng/mL (0.00-0.09)
[2024-06-08] MEDS: Sodium Chloride 0.65% 1 SPRAY SPRAY.BTL 2 SPRAY NASAL (11:05)
--- NOTE | 2024-06-08 13:07 | CASEMGMT ---
JEWELS MUNGUIA Assessment Face to Face with patient for initial transition planning/care coordination assessment. JEWELS MUNGUIA introduced self and role at [facility], pt voices understanding. Pt is A&Ox4 and is resting comfortably in bed and is calm. Pt at bedside. Care providers, pharmacy, and demographics verified. Admitting dx: Acute Hypoxic RF LACE Strata: 1 PCP: Vu Aguilera Specialists: Avril (Pulmonary) Preferred [facility]acy[facility] Insurance: MMO [facility] Prescription Benefit: Yes LNOK: Mason Buitrago (H) Living Arrangements: Pt lives with her in a 2 story home with a FFSU and 2 steps to enter ADLs/IADLs: Pt reports that she is mainly independent but that her , friends, neighbors, and sister are all able to provide assistance as needed. Transportation: Self, DME: Functioning BGM with sufficient supplies. Shower chair. Nebulizer. Inhaler. pulse ox. Mechanical bed. Pt states that she gets a tri-monthly fund through her insurance for DME needs including walkers and canes but has not had the need to purchase these items yet. Pt states that she had a history with [facility] for Home oxygen and has since returned the equipment and now strictly goes through [facility] for home oxygen needs. TC to [facility] (on-hold for 30+ minutes). The Clinical team at [facility] states that the pt has a stationary oxygen concentrator that goes up to 5L and a POC that goes up to 6L. [facility]. HHC/SNF: Reports Hx with [facility] and states that she did not like the HH service as they were too much and too aggressive. Pt states that she thinks that she has a history with Palliative but that she no longer needs this service. E-Mail sent to [facility] who confirms that the pt is not in their system. Per chart review, the pt was set up with [facility] in the past, but did not follow through with the referral that was made for the pt. Adán states in her note that several VM's were left. Pt denies SNF history. Pt?s goal: Return home Plan: Home with pt , follow for oxygen needs. 6-Click score is 21. There is no therapy currently ordered. Pt adamantly denies the need for HH, OP Tx, SNF, or CCN. Pt states that she feels safe returning home with her once she is medically ready and denies further questions or concerns at this time. Pt states I will follow with my PCP if I feel like I need anything. Report given to SHOWER SCREEN INSTALLER CM. Delores Hernandez RN, CM
[2024-06-08] MEDS: hydrOXYzine PAM 25 MG Capsule PO ×2 (14:06→21:36)
[2024-06-08] MEDS: guaiFENesin 10 ML UDC (200MG/10ML) PO ×2 (14:06→21:36)
--- NOTE | 2024-06-08 14:37 | CHAPLAIN ---
Type of Pastoral Visit ___ Initial Visit ___ Follow-up Visit ___ On-call Visit ___ General Patient Visit ___ Spiritual Assessment ___ Family Conference ___ Bereavement ___ Rapid Response ___ Code Blue ___ Other (describe below) Pastoral Care Referral From ___ Patient ___ Family ___ Nurse ___ Physician ___ Lode [employer]er Blasting ___ Pharmacy Sales Assistant ___ Other (describe below) Sacrament/Intervention ___ Active listening ___ Anointing ___ Samaritan ___ Bereavement ___ Communion ___ Shayla exploration ___ ___ Life review ___ Prayer ___ Reconciliation ___ Sacrament of Sick ___ Supportive presence ___ Wedding ___ Other (describe below) Pastoral Comments first attempt and the patient was sleeping; spouse was in the room and said that they are fine for now; second attempt made and patient is awake but states that she is needing the nurse who comes into the room at that time; pt said that she did not need anything else right now; offer of future support as desired
[2024-06-08] MEDS: Furosemide 40 MG Tablet PO (18:13)
[2024-06-08 19:04] LABS: Hemoglobin A1c 6.3 % (3.8-5.6)
[2024-06-08] MEDS: Senna/Docusate Sodium 1 Tablet 2 TABLET PO (21:36)
[2024-06-09] VITALS (18 sets, daily range): BP systolic 123–130; BP diastolic 53–68; PULSE 66–84; RESP 18–20; TEMP 36.1–36.9; O2SAT 84–97; BMI 31.6
[2024-06-09] MEDS: Ipratropium/Albuterol Sulfate 3 ML AMPUL.NEB INHALATION ×5 (07:16→23:24)
--- NOTE | 2024-06-09 08:21 | PCM.PN.HOSP ---
Reason for Visit Reason for Visit: Diagnoses Chronic obstructive pulmonary disease with (acute) exacerbation (06/07/24) Acute respiratory failure with hypoxia (06/07/24) Acute respiratory failure with hypercapnia (06/07/24) Subjective Subjective Patient has been weaned off noninvasive ventilation. Currently on nasal cannula. Diagnostic data reviewed significant for hypokalemia Objective Data Objective Data Vital Signs: Vital Signs Temp Pulse Resp BP Pulse Ox O2 Del Method O2 Flow Rate 97.2 F L 76 18 124/64 H 92 Nasal Cannula 4 06/09/24 05:48 06/09/24 07:16 06/09/24 07:16 06/09/24 05:48 06/09/24 07:16 06/09/24 07:16 06/09/24 07:16 FiO2 40 06/09/24 03:25 Oxygen Flow Rate (L/min) 4 Oxygen Delivery Method Nasal Cannula Weight: 91.6 kg Body Mass Index (BMI) 31.6 Intake & Output: Intake and Output for Last 24 Hours 06/07/24 06/08/24 06/09/24 23:59 23:59 23:59 Intake Total 318.25 / 318.25 1065 / 1065 0 / 0 Output Total 1025 / 1025 1150 / 1150 Balance -706.75 / -706.75 -85 / -85 0 / 0 Lab / Micro Data 06/09/24 07:51 06/09/24 07:51 Labs: Laboratory Results - last 24 hr 06/08/24 07:25: WBC 9.3, RBC 4.03 L, Hgb 12.1, Hct 40.7, MCV 101.0 H, MCH 30.0, MCHC 29.7 L, RDW Std Deviation 49.1 H, RDW Coeff of Keila 13.2, Plt Count 214, MPV 9.9, Immature Gran % (Auto) 0.900, Neut % (Auto) 82.6 H, Lymph % (Auto) 6.4 L, [place] % (Auto) 10.0, Eos % (Auto) 0.0, Baso % (Auto) 0.1, Absolute Neuts (auto) 7.7, Absolute Lymphs (auto) 0.59 L, Nucleated RBC % 0, Sodium 141, Potassium 3.7, Chloride 87 L, Carbon Dioxide > 45.0 H*, Anion Gap TNP, BUN 24 H, Creatinine 0.49 L, Estim Creat Clear Calc 84.42, Est GFR (MDRD) Af Amer 162, Est GFR (MDRD) Non-Af 134, BUN/Creatinine Ratio 48.8 H, Glucose 95, Hemoglobin A1c 6.3 H, Calcium 9.2, Phosphorus 3.1, Magnesium 2.0, Procalcitonin 0.06 Micro: Microbiology 06/08/24 12:23 Mucosa - Nasopharyngeal Respiratory Panel (PCR) - Final 06/07/24 10:15 Mucosa - Nose SARS-CoV-2, Influenza & RSV (PCR) - Final Radiography Diagnostic Testing: Radiology Impression Echocardiogram 06/07/24 14:12 Interpretation Summary Normal LV size. Left ventricular systolic function is normal. The left ventricular ejection fraction is 60 %. Mild concentric left ventricular hypertrophy. Ordering Physician: Jim Gill Performed By: Falguni Burk RDCS Physical Exam Narrative GENERAL: Patient is much more awake but remains on BiPAP HEENT: Atraumatic; normocephalic EYES; Anicteric, Normal Conjunctiva NECK; supple, normal thyroid, RESPIRATORY: Diminished to auscultation CARDIOVASCULAR: Regular S1 S2, GI: soft, normoactive bowel sounds, : No Renal angle tenderness; EXTREMITIES: No edema, no clubbing, MUSCULOSKELETAL: no muscle wasting NEURO: no lateralizing signs. SKIN: No Rash PSYCH; Flat affect Assessment & Plan Assessment/Plan (1) Acute respiratory failure with hypoxia and hypercarbia: (2) Acute exacerbation of chronic obstructive pulmonary disease (COPD): PLAN: Plan Patient is a 63-year-old lady brought to the emergency department by the on account of progressive shortness of breath 1. Acute hypoxic and hypercapnic respiratory failure ? Multifactorial including COPD with acute exacerbation as well as congestive heart failure. CT of the chest obtained was negative for PE patient was however noted to have bilateral upper lobe interstitial edema and extensive pulmonary edema and small right pleural effusion with minimal ascites. Patient admitted to the intensive care unit placed on noninvasive ventilation BiPAP consultation placed to pulmonary medicine ? 06/08/2024; patient remains on noninvasive ventilation via BiPAP. Repeat ABG last evening still demonstrated presence of significant hypercapnia ? 06/09/2024; patient has been weaned off noninvasive ventilation currently on nasal cannula. Patient however remains significantly dyspneic at rest 2. COPD with acute exacerbation ? Patient started on bronchodilator treatment, systemic steroid as well as antibiotic therapy. Patient placed on oxygen titrated to keep saturation greater than 90. 3. Acute congestive heart failure with preserved ejection fraction ? Type unspecified at this point. Patient was noted to have pulmonary edema on her CAT scan started on furosemide, placed on low-sodium diet strict input and output Daily weights supplemental oxygen and echo ordered for EF assessment ? 06/08/2024; patient is in negative fluid balance of 0.7 L since admission ? 06/09/2024; 2D echo did showNormal LV size. Left ventricular systolic function is normal. The left ventricular ejection fraction is 60 %. Mild concentric left ventricular hypertrophy 4. Chronic hypoxic respiratory failure ? Patient is on baseline home O2 5. Hypertension ? Blood pressure controlled, home medications continued with dose adjustment as needed 6. Tobacco dependence ? Counseled on cessation, offered nicotine patch for tobacco cravings 7. DVT prophylaxis ? On enoxaparin 8. Hypokalemia ? Secondary to use of diuretics, corrected per protocol repeat BMP ordered for a.m. Time spent in the patient's overall evaluation,decision-making process, review of diagnostic data, adjustment of management, discussion with other providers, nursing nursing and ancillary staff involved in patient's care documentation, 50 minutes Charges/Coding Visit Charges Inpatient E&M: 02892 Subs Hosp L3
[2024-06-09 08:33] LABS: Absolute Lymphocyte Count 2.02 X10^3/uL (0.83-4.51); Absolute Neutrophil Count 5.8 X10^3/uL (2.0-7.7); Basophil# 0.04 X10^3/uL; Basophil% 0.4 % (0-1); Eosinophil# 0.04 X10^3/uL; Eosinophils% 0.4 % (0-5); Hematocrit 41.9 % (37-47); Hemoglobin 12.7 g/dL (12.0-15.0); Lymphocyte # 2.02 X10^3/ul (0.83-4.51); Lymphocyte % 22.4 % (19-41); Mean Corp Hgb Conc 30.3 g/dL (32-36); Mean Corpuscular Hgb 30.7 pg (27.0-32.0); Mean Corpuscular Volume 101.2 fL (81-99); Mean Platelet Vol. 10.2 fl (6.2-12.0); Monocyte% 12.2 % (0-10); NRBC Flagged by Analyzer 0 % (0-5); Neutrophil # 5.76 X10^3/uL (2.7-7.7); Neutrophil % 63.9 % (47-70); Platelet Count 223 K/mm3 (150-450); RBC Distribution Width CV 13.6 % (11.6-14.6); RBC Distribution Width SD 50.4 fl (35.1-43.9); Red Blood Count 4.14 M/mm3 (4.2-5.4)
[2024-06-09] MEDS: Senna/Docusate Sodium 1 Tablet 2 TABLET PO ×2 (08:35→20:26)
[2024-06-09] MEDS: Sertraline 100 MG Tablet PO (08:35)
[2024-06-09] MEDS: Enoxaparin 40 MG/0.4 ML Syringe SC (08:36)
[2024-06-09] MEDS: Furosemide 40 MG Tablet PO ×2 (08:36→16:29)
[2024-06-09] MEDS: predniSONE 20 MG Tablet 40 MG PO (08:36)
[2024-06-09] MEDS: Lisinopril 20 MG Tablet PO (08:36)
[2024-06-09] MEDS: hydroCHLOROthiazide 25 MG Tablet PO (08:36)
[2024-06-09] MEDS: Azithromycin 500 MG in 0.9% Normal Saline (250mL Bag) 250 ML 250 MG IV (08:42)
[2024-06-09 09:20] LABS: BUN 24 mg/dL (7-18); BUN/Creat Ratio 41.6 RATIO (10-20); Calcium,Total 9.2 mg/dL (8.5-10.1); Carbon Dioxide > 45.0 mmol/L (21.0-32.0); Chloride 91 mmol/L (98-107); Creatinine, Serum 0.58 mg/dL (0.55-1.02); EST Glomerular Filtration Rate 111 mL/min (>60); Est Glom Filt Rate - Afr Amer 135 mL/min (>60); Estimated Creatinine Clearance 81.46 ml/min; Glucose 110 mg/dL (74-106); Potassium 3.4 mmol/L (3.5-5.1); Sodium Level 142 mmol/L (136-145)
--- NOTE | 2024-06-09 10:26 | PN.CC_ITS ---
Assessment & Plan Assessment/Plan (1) Acute exacerbation of chronic obstructive pulmonary disease (COPD): PLAN: Plan RECOMMENDATIONS: 1. Continue supplemental oxygen to maintain saturations at or above 90%. 2. Continue PAP therapy with naps and nightly. 3. Continue scheduled bronchodilators and IV steroids. 4. Continue empiric antibiotics to complete 7 days of therapy. 5. Continue appropriate DVT prophylaxis. 6. Outpatient follow-up with Dr. Mackenzie after discharge. IMPRESSIONS: 1. Acute on chronic combined respiratory failure Most likely multifactorial, with underlying advanced stage COPD in a state of exacerbation secondary to pneumonia and possible diastolic heart failure contributing. The patient is followed routinely by Dr. Mackenzie of pulmonary medicine and has a baseline oxygen requirement of 4 L/min. She is already on a triple therapy inhaler regimen at her baseline. For now, I agree with continuing current medical therapy including antibiotics, bronchodilators and steroids. CTA chest ruled out pulmonary embolism. Continue current supportive care. 2. Chronic tobacco dependency/hypertension/depression/anxiety Complicates care, management, recovery and prognosis. Continue home medications as indicated. Smoking cessation is strongly advised. This note was generated with [employer] dictation software. It may contain incorrect words, spelling, and punctuation that were not noted in checking the note before signing. Subjective Subjective The patient was seen and examined at the bedside this morning. Events from the last 24 hours have been reviewed. The patient is currently afebrile, hemodynamically stable and maintaining appropriate oxygen saturations on 4 L/min via nasal cannula. White blood cell count remains normal. Hemoglobin and platelet count are stable. Potassium is low at 3.4 with a bicarbonate greater than 45. Objective Data Objective Data The patient's most recent lab work, culture data and imaging studies have all been personally reviewed. Respiratory viral panel was negative. COVID, influenza and RSV PCR's were negative. Blood cultures are pending. Vital Signs: Vital Signs Temp Pulse Resp BP Pulse Ox O2 Del Method O2 Flow Rate 98.3 F 72 18 126/68 H 92 Nasal Cannula 4 06/09/24 08:30 06/09/24 08:30 06/09/24 08:30 06/09/24 08:30 06/09/24 08:30 06/09/24 08:30 06/09/24 08:30 FiO2 40 06/09/24 03:25 Oxygen Flow Rate (L/min) 4 Oxygen Delivery Method Nasal Cannula Weight: 201 lb 15.095 oz Body Mass Index (BMI) 31.6 Intake & Output: Intake and Output for Last 24 Hours 06/07/24 06/08/24 06/09/24 23:59 23:59 23:59 Intake Total 318.25 / 318.25 1065 / 1065 0 / 0 Output Total 1025 / 1025 1150 / 1150 Balance -706.75 / -706.75 -85 / -85 0 / 0 Lab / Micro Data Attestation: I reviewed the patient's lab results. 06/09/24 07:51 06/09/24 07:51 Labs: Laboratory Results - last 24 hr 06/08/24 07:25: Hemoglobin A1c 6.3 H, Procalcitonin 0.06 06/09/24 07:51: WBC 9.0, RBC 4.14 L, Hgb 12.7, Hct 41.9, MCV 101.2 H, MCH 30.7, MCHC 30.3 L, RDW Std Deviation 50.4 H, RDW Coeff of Keila 13.6, Plt Count 223, MPV 10.2, Immature Gran % (Auto) 0.700, Neut % (Auto) 63.9, Lymph % (Auto) 22.4, M larisa % (Auto) 12.2 H, Eos % (Auto) 0.4, Baso % (Auto) 0.4, Absolute Neuts (auto) 5.8, Absolute Lymphs (auto) 2.02, Nucleated RBC % 0, Sodium 142, Potassium 3.4 L , Chloride 91 L, Carbon Dioxide > 45.0 H*, Anion Gap TNP, BUN 24 H, Creatinine 0.58, Estim Creat Clear Calc 81.46, Est GFR (MDRD) Af Amer 135, Est GFR (MDRD) Non-Af 111, BUN/Creatinine Ratio 41.6 H, Glucose 110 H, Calcium 9.2 Micro: Microbiology 06/08/24 12:23 Mucosa - Nasopharyngeal Respiratory Panel (PCR) - Final 06/07/24 10:15 Mucosa - Nose SARS-CoV-2, Influenza & RSV (PCR) - Final Radiography Diagnostic Testing: Radiology Impression Echocardiogram 06/07/24 14:12 Interpretation Summary Normal LV size. Left ventricular systolic function is normal. The left ventricular ejection fraction is 60 %. Mild concentric left ventricular hypertrophy. Ordering Physician: Jim Gill Performed By: Falguni Burk RDCS Physical Exam Const alert and no apparent distress Constitutional Narrative: Resting comfortably in bed. General Appearance: cooperative HEENT normocephalic and head/scalp atraumatic Eyes EOMs intact bilaterally, conjunctivae normal and no scleral icterus Neck supple General: trachea midline Chest inspection of chest normal Resp Auscultation: diminished lung sounds; Negative for rales, rhonchi or wheezes Cardio regular rate and regular rhythm GI normal to inspection, nondistended, normoactive bowel sounds Extremity General Extremity: edema; Negative for clubbing Skin no rashes or lesions noted Neuro CN's II-XII intact bilaterally, moves all extremities and no focal motor deficits Psych Mood & Affect: anxious Charges/Coding Visit Charges Inpatient E&M: 82584 Subs Hosp L2
[2024-06-09] MEDS: Calcium Carb/Vitamin D 1 TABLET Tablet PO (11:45)
[2024-06-09] MEDS: Mag Hydrox/Al Hydrox/Simeth 30 ML UDC PO (12:24)
[2024-06-09] MEDS: Potassium Chloride Oral Tablet 20 MEQ PO (16:28)
[2024-06-10] VITALS (17 sets, daily range): BP systolic 120–141; BP diastolic 54–78; PULSE 63–93; RESP 14–22; TEMP 35.8–36.6; O2SAT 7–96; BMI 30.8
[2024-06-10 07:03] LABS: Absolute Lymphocyte Count 2.17 X10^3/uL (0.83-4.51); Basophil# 0.04 X10^3/uL; Basophil% 0.5 % (0-1); Eosinophil# 0.11 X10^3/uL; Eosinophils% 1.3 % (0-5); Hematocrit 43.8 % (37-47); Hemoglobin 13.1 g/dL (12.0-15.0); Lymphocyte # 2.17 X10^3/ul (0.83-4.51); Lymphocyte % 26.1 % (19-41); Mean Corp Hgb Conc 29.9 g/dL (32-36); Mean Corpuscular Hgb 30.4 pg (27.0-32.0); Mean Corpuscular Volume 101.6 fL (81-99); Mean Platelet Vol. 9.9 fl (6.2-12.0); Monocyte# 0.93 X10^3/uL; Monocyte% 11.2 % (0-10); NRBC Flagged by Analyzer 0 % (0-5); Neutrophil % 60.3 % (47-70); Platelet Count 223 K/mm3 (150-450); RBC Distribution Width CV 13.4 % (11.6-14.6); RBC Distribution Width SD 50.7 fl (35.1-43.9); Red Blood Count 4.31 M/mm3 (4.2-5.4); White Blood Count 8.3 K/mm3 (4.4-11.0)
[2024-06-10] MEDS: Ipratropium/Albuterol Sulfate 3 ML AMPUL.NEB INHALATION ×4 (07:10→19:48)
[2024-06-10 07:51] LABS: BUN 23 mg/dL (7-18); BUN/Creat Ratio 39.4 RATIO (10-20); Calcium,Total 9.4 mg/dL (8.5-10.1); Carbon Dioxide > 45.0 mmol/L (21.0-32.0); Chloride 91 mmol/L (98-107); Creatinine, Serum 0.58 mg/dL (0.55-1.02); EST Glomerular Filtration Rate 110 mL/min (>60); Est Glom Filt Rate - Afr Amer 133 mL/min (>60); Estimated Creatinine Clearance 80.44 ml/min; Glucose 105 mg/dL (74-106); Sodium Level 139 mmol/L (136-145)
--- NOTE | 2024-06-10 08:25 | PN.HOSP_ITS ---
Reason for Visit Reason for Visit: Diagnoses Chronic obstructive pulmonary disease with (acute) exacerbation (06/07/24) Acute respiratory failure with hypoxia (06/07/24) Acute respiratory failure with hypercapnia (06/07/24) Subjective Subjective Patient seen clinical condition continues to improve. Requested for 6 minutes walk to determine patient readiness for discharge Objective Data Objective Data Vital Signs: Vital Signs Temp Pulse Resp BP Pulse Ox O2 Del Method O2 Flow Rate 96.8 F L 63 18 132/71 H 95 High Flow 5 06/10/24 06:00 06/10/24 07:13 06/10/24 07:13 06/10/24 06:00 06/10/24 07:13 06/10/24 07:13 06/10/24 07:13 FiO2 40 06/09/24 03:25 Oxygen Flow Rate (L/min) 5 Oxygen Delivery Method High Flow Weight: 89.3 kg Body Mass Index (BMI) 30.8 Intake & Output: Intake and Output for Last 24 Hours 06/08/24 06/09/24 06/10/24 23:59 23:59 23:59 Intake Total 1065 / 1065 655 / 655 100 / 100 Output Total 1150 / 1150 Balance -85 / -85 655 / 655 100 / 100 Lab / Micro Data 06/10/24 06:08 06/10/24 06:08 Labs: Laboratory Results - last 24 hr 06/09/24 07:51: WBC 9.0, RBC 4.14 L, Hgb 12.7, Hct 41.9, MCV 101.2 H, MCH 30.7, MCHC 30.3 L, RDW Std Deviation 50.4 H, RDW Coeff of Keila 13.6, Plt Count 223, MPV 10.2, Immature Gran % (Auto) 0.700, Neut % (Auto) 63.9, Lymph % (Auto) 22.4, M larisa % (Auto) 12.2 H, Eos % (Auto) 0.4, Baso % (Auto) 0.4, Absolute Neuts (auto) 5.8, Absolute Lymphs (auto) 2.02, Nucleated RBC % 0, Sodium 142, Potassium 3.4 L , Chloride 91 L, Carbon Dioxide > 45.0 H*, Anion Gap TNP, BUN 24 H, Creatinine 0.58, Estim Creat Clear Calc 81.46, Est GFR (MDRD) Af Amer 135, Est GFR (MDRD) Non-Af 111, BUN/Creatinine Ratio 41.6 H, Glucose 110 H, Calcium 9.2 06/10/24 06:08: WBC 8.3, RBC 4.31, Hgb 13.1, Hct 43.8, MCV 101.6 H, MCH 30.4, M CHC 29.9 L, RDW Std Deviation 50.7 H, RDW Coeff of Keila 13.4, Plt Count 223, MPV 9.9, Immature Gran % (Auto) 0.600, Neut % (Auto) 60.3, Lymph % (Auto) 26.1, Bee % (Auto) 11.2 H, Eos % (Auto) 1.3, Baso % (Auto) 0.5, Absolute Neuts (auto) 5.0, Absolute Lymphs (auto) 2.17, Nucleated RBC % 0, Sodium 139, Potassium 4.0, C hloride 91 L, Carbon Dioxide > 45.0 H*, Anion Gap TNP, BUN 23 H, Creatinine 0.58, Estim Creat Clear Calc 80.44, Est GFR (MDRD) Af Amer 133, Est GFR (MDRD) Non-Af 110, BUN/Creatinine Ratio 39.4 H, Glucose 105, Calcium 9.4 Micro: Microbiology 06/07/24 10:35 Blood Culture (Wb) #2 - Left Wrist Blood Culture - Preliminary No growth in 48 hours. 06/07/24 10:15 Blood Culture (Wb) - Left Wrist Blood Culture - Preliminary No growth in 48 hours. 06/08/24 12:23 Mucosa - Nasopharyngeal Respiratory Panel (PCR) - Final 06/07/24 10:15 Mucosa - Nose SARS-CoV-2, Influenza & RSV (PCR) - Final Physical Exam Narrative GENERAL: Patient is much more awake but remains on BiPAP HEENT: Atraumatic; normocephalic EYES; Anicteric, Normal Conjunctiva NECK; supple, normal thyroid, RESPIRATORY: Diminished to auscultation CARDIOVASCULAR: Regular S1 S2, GI: soft, normoactive bowel sounds, : No Renal angle tenderness; EXTREMITIES: No edema, no clubbing, MUSCULOSKELETAL: no muscle wasting NEURO: no lateralizing signs. SKIN: No Rash PSYCH; Flat affect Assessment & Plan Assessment/Plan (1) Acute respiratory failure with hypoxia and hypercarbia: (2) Acute exacerbation of chronic obstructive pulmonary disease (COPD): PLAN: Plan Patient is a 63-year-old lady brought to the emergency department by the on account of progressive shortness of breath 1. Acute hypoxic and hypercapnic respiratory failure ? Multifactorial including COPD with acute exacerbation as well as congestive heart failure. CT of the chest obtained was negative for PE patient was however noted to have bilateral upper lobe interstitial edema and extensive pulmonary edema and small right pleural effusion with minimal ascites. Patient admitted to the intensive care unit placed on noninvasive ventilation BiPAP consultation placed to pulmonary medicine ? 06/08/2024; patient remains on noninvasive ventilation via BiPAP. Repeat ABG last evening still demonstrated presence of significant hypercapnia ? 06/09/2024; patient has been weaned off noninvasive ventilation currently on nasal cannula. Patient however remains significantly dyspneic at rest ? 06/10/2024;Patient seen clinical condition continues to improve. Requested for 6 minutes walk to determine patient readiness for discharge 2. COPD with acute exacerbation ? Patient started on bronchodilator treatment, systemic steroid as well as antibiotic therapy. Patient placed on oxygen titrated to keep saturation greater than 90. 3. Acute congestive heart failure with preserved ejection fraction ? Type unspecified at this point. Patient was noted to have pulmonary edema on her CAT scan started on furosemide, placed on low-sodium diet strict input and output Daily weights supplemental oxygen and echo ordered for EF assessment ? 06/08/2024; patient is in negative fluid balance of 0.7 L since admission ? 06/09/2024; 2D echo did showNormal LV size. Left ventricular systolic function is normal. The left ventricular ejection fraction is 60 %. Mild concentric left ventricular hypertrophy 4. Chronic hypoxic respiratory failure ? Patient is on baseline home O2 5. Hypertension ? Blood pressure controlled, home medications continued with dose adjustment as needed 6. Tobacco dependence ? Counseled on cessation, offered nicotine patch for tobacco cravings 7. DVT prophylaxis ? On enoxaparin 8. Hypokalemia ? Secondary to use of diuretics, corrected per protocol repeat BMP ordered for a.m. Time spent in the patient's overall evaluation,decision-making process, review of diagnostic data, adjustment of management, discussion with other providers, nursing nursing and ancillary staff involved in patient's care documentation, 38 minutes Charges/Coding Visit Charges Inpatient E&M: 23363 Subs Hosp L2
[2024-06-10] MEDS: Azithromycin 500 MG in 0.9% Normal Saline (250mL Bag) 250 ML 250 MG IV (10:00)
[2024-06-10] MEDS: predniSONE 20 MG Tablet 40 MG PO (10:01)
[2024-06-10] MEDS: Potassium Chloride Oral Tablet 20 MEQ PO ×2 (10:01→17:23)
[2024-06-10] MEDS: Furosemide 40 MG Tablet PO ×2 (10:01→17:23)
[2024-06-10] MEDS: Lisinopril 20 MG Tablet PO (10:02)
[2024-06-10] MEDS: Enoxaparin 40 MG/0.4 ML Syringe SC (10:02)
[2024-06-10] MEDS: Sertraline 100 MG Tablet PO (10:02)
[2024-06-10] MEDS: hydroCHLOROthiazide 25 MG Tablet PO (10:02)
--- NOTE | 2024-06-10 14:24 | PN.CC_ITS ---
Objective Data Objective Data Vital Signs: Vital Signs Last response 3 Temperature 36.6 C 06/10/24 11:00 Temperature Source Oral 06/10/24 11:00 Pulse Rate 79 06/10/24 11:02 Pulse Strength Normal (2+) 06/10/24 10:00 Respiratory Rate 15 06/10/24 11:02 Respiratory Effort Normal 06/10/24 11:29 Respiratory Depth Normal 06/10/24 11:29 Respiratory Pattern Normal 06/10/24 11:29 Blood Pressure 134/76 H 06/10/24 11:00 Blood Pressure Mean 95 06/10/24 11:00 Blood Pressure Source Monitor 06/10/24 11:00 Blood Pressure Position Semi-Fowlers 06/10/24 11:00 Blood Pressure Location Right Arm 06/10/24 11:00 Pulse Ox 95 06/10/24 11:29 Oxygen Delivery Method Bi-pap 06/10/24 11:29 Oxygen Flow Rate (L/min) 6 06/10/24 10:55 Fraction of Inspired Oxygen (FIO2) 50 06/10/24 11:02 I&O: I&O Last 24 Hours 3 06/09/24 06/10/24 06/10/24 23:59 11:59 23:59 Intake Total 355 / 355 Balance 355 / 355 I&O: Total Stay 3 06/07/24 09:45 thru 06/10/24 11:07 Intake Total 2393.25 Output Total 2175 Balance 218.25 Current Meds Ordered / Administered: Current meds ordered / Administered 3 Generic Name Dose Route Start Last Admin Trade Name Freq PRN Reason Stop Dose Admin Acetaminophen 650 mg 06/07/24 14:01 Acetaminophen 325 Mg Tablet PO Q6H PRN PRN Pain 1-10 Or Fever>100.7 Al Hydroxide/Mg Hydroxide 30 ml 06/07/24 14:06/09/24 12:24 Mag Hydrox/Al Hydrox/Simeth 30 Ml Udc PO 30 ml Q6H PRN PRN Administration Gastric Burning Albuterol Sulfate 2.5 mg 06/07/24 14:06/07/24 21:10 Albuterol 2.5 Mg/3 Ml Vial.Neb. INHALATION 2.5 mg Q2H PRN PRN Administration SOB &/OR WHEEZING Albuterol/Ipratropium 3 ml 06/07/24 14:01 06/10/24 11:01 Ipratropium/Albuterol Sulfate 3 Ml Ampul.Neb INHALATION 3 ml Q4H.RT JOCELYNE Administration Calcium/Vitamin D 1 tablet 06/09/24 12:00 06/09/24 11:45 Calcium Carb/Vitamin D 1 Tablet Tablet PO 1 tablet [id number]@1200 JOCELYNE Administration Enoxaparin Sodium 40 mg 06/08/24 10:00 06/10/24 10:02 Enoxaparin 40 Mg/0.4 Ml Syringe SC 40 mg DAILY JOCELYNE Administration Furosemide 40 mg 06/08/24 18:00 06/10/24 10:01 Furosemide 40 Mg Tablet PO 40 mg BIDLX JOCELYNE Administration Protocol Guaifenesin 10 ml 06/07/24 14:01 06/08/24 21:36 Guaifenesin 10 Ml Udc (200mg/10ml) PO 10 ml Q4H PRN PRN Administration COUGH Hydrochlorothiazide 25 mg 06/09/24 10:00 06/10/24 10:02 Hydrochlorothiazide 25 Mg Tablet PO 25 mg DAILY JOCELYNE Administration Hydroxyzine Pamoate 25 mg 06/08/24 11:12 06/08/24 21:36 Hydroxyzine Rosi 25 Mg Capsule PO 25 mg TID PRN PRN Administration ANXIETY/RESTLESSNESS/SLEEP Azithromycin 500 mg/ Sodium 255 mls @ 250 mls/hr 06/07/24 14:01 06/10/24 11:07 Chloride IV Infused Q24 JOCELYNE Infusion Sodium Chloride 100 mls @ 15 mls/hr 06/07/24 14:24 06/09/24 08:15 IV Infused .Q6H40M PRN Infusion Saline Flush Sodium Chloride 100 mls @ 15 mls/hr 06/07/24 14:24 IV .Q6H40M PRN Additional IVPB Infusion Lisinopril 20 mg 06/09/24 10:00 06/10/24 10:02 Lisinopril 20 Mg Tablet PO 20 mg DAILY JOCELYNE Administration Melatonin 3 mg 06/07/24 14:01 Melatonin 3 Mg Tablet PO QHS PRN PRN INSOMNIA Ondansetron HCl 4 mg 06/07/24 14:01 Ondansetron 4 Mg/2 Ml Vial IV Q8H PRN PRN NAUSEA/VOMITING Potassium Chloride 20 meq 06/09/24 17:00 06/10/24 10:01 Potassium Chloride Oral Tablet 20 Meq PO 20 meq BIDCM JOCELYNE Administration Prednisone 40 mg 06/09/24 08:00 06/10/24 10:01 Prednisone 20 Mg Tablet PO 40 mg DAILY@0800 JOCELYNE Administration Senna/Docusate Sodium 2 tablet 06/07/24 14:01 06/09/24 20:26 Senna/Docusate Sodium 1 Tablet PO 2 tablet BID PRN PRN Administration Constipation Sertraline HCl 100 mg 06/09/24 10:00 06/10/24 10:02 Sertraline 100 Mg Tablet PO 100 mg DAILY JOCELYNE Administration Sodium Chloride 10 - 40 ml 06/07/24 14:24 06/08/24 14:48 0.9% Saline Lock 10 Ml Syringe IV 10 ml UD PRN Administration SALINE FLUSH Sodium Chloride 2 spray 06/08/24 09:17 06/08/24 11:05 Sodium Chloride 0.65% 1 Steinauer Steinauer.Btl NASAL 2 spray TID PRN PRN Administration NASAL DRYNESS Lab / Micro Data 06/10/24 06:08 06/10/24 06:08 Labs: Laboratory Results - last 24 hr 06/10/24 06:08: WBC 8.3, RBC 4.31, Hgb 13.1, Hct 43.8, MCV 101.6 H, MCH 30.4, M CHC 29.9 L, RDW Std Deviation 50.7 H, RDW Coeff of Keila 13.4, Plt Count 223, MPV 9.9, Immature Gran % (Auto) 0.600, Neut % (Auto) 60.3, Lymph % (Auto) 26.1, [place] % (Auto) 11.2 H, Eos % (Auto) 1.3, Baso % (Auto) 0.5, Absolute Neuts (auto) 5.0, Absolute Lymphs (auto) 2.17, Nucleated RBC % 0, Sodium 139, Potassium 4.0, C hloride 91 L, Carbon Dioxide > 45.0 H*, Anion Gap TNP, BUN 23 H, Creatinine 0.58, Estim Creat Clear Calc 80.44, Est GFR (MDRD) Af Amer 133, Est GFR (MDRD) Non-Af 110, BUN/Creatinine Ratio 39.4 H, Glucose 105, Calcium 9.4 Micro: Microbiology 06/07/24 10:35 Blood Culture (Wb) #2 - Left Wrist Blood Culture - Preliminary No growth in 48 hours. 06/07/24 10:15 Blood Culture (Wb) - Left Wrist Blood Culture - Preliminary No growth in 48 hours. Assessment and Plan . Assessment and plan: IMPRESSIONS: 1. Acute on chronic combined respiratory failure; multifactorial with components of AECOPD, +/- infection and/ or diastolic heart failure 2. Chronic tobacco dependency/hypertension/depression/anxiety RECOMMENDATIONS: 1. Continue supplemental oxygen to maintain saturations at or above 90%. 2. Continue PAP therapy with naps and nightly. 3. Continue scheduled bronchodilators and IV steroids. 4. Continue empiric antibiotics to complete 7 days of therapy. 5. Continue appropriate DVT prophylaxis. 6. Outpatient follow-up with Dr. Mackenzie (Pulmonary) after discharge. Critical Care Time: 50 minutes The entirety of this encounter was done via Telemedicine Physical Exam Const no apparent distress General Appearance: cooperative Eyes PERRL Resp Effort and Inspection: able to speak in complete sentences and uses accessory muscles Auscultation: diminished lung sounds Cardio regular rate Psych Speech: normal speech Subjective Subjective Doing well. O2 needs remain above baseline. Walking in room she says.
[2024-06-10] MEDS: Senna/Docusate Sodium 1 Tablet 2 TABLET PO (17:25)
[2024-06-10] MEDS: Acetaminophen 325 MG Tablet 650 MG PO (21:54)
[2024-06-11] VITALS (10 sets, daily range): BP systolic 95–154; BP diastolic 56–63; PULSE 63–89; RESP 16–20; TEMP 35.8–37.4; O2SAT 85–98; BMI 31.5
[2024-06-11] MEDS: Ipratropium/Albuterol Sulfate 3 ML AMPUL.NEB INHALATION ×5 (01:42→20:02)
--- NOTE | 2024-06-11 04:03 | CPS ---
Pt took bipap off around 1:30 am.
[2024-06-11 05:27] LABS: Absolute Lymphocyte Count 1.65 X10^3/uL (0.83-4.51); Absolute Neutrophil Count 5.5 X10^3/uL (2.0-7.7); Basophil# 0.03 X10^3/uL; Basophil% 0.4 % (0-1); Eosinophils% 1.2 % (0-5); Hemoglobin 12.3 g/dL (12.0-15.0); Lymphocyte # 1.65 X10^3/ul (0.83-4.51); Lymphocyte % 20.1 % (19-41); Mean Corpuscular Hgb 30.2 pg (27.0-32.0); Mean Corpuscular Volume 100.7 fL (81-99); Mean Platelet Vol. 9.4 fl (6.2-12.0); Monocyte# 0.93 X10^3/uL; Monocyte% 11.3 % (0-10); NRBC Flagged by Analyzer 0 % (0-5); Neutrophil # 5.46 X10^3/uL (2.7-7.7); Neutrophil % 66.4 % (47-70); Platelet Count 186 K/mm3 (150-450); RBC Distribution Width CV 13.4 % (11.6-14.6); Red Blood Count 4.07 M/mm3 (4.2-5.4); White Blood Count 8.2 K/mm3 (4.4-11.0)
[2024-06-11 06:22] LABS: BUN 22 mg/dL (7-18); BUN/Creat Ratio 38.2 RATIO (10-20); Calcium,Total 9.4 mg/dL (8.5-10.1); Carbon Dioxide > 45.0 mmol/L (21.0-32.0); Chloride 92 mmol/L (98-107); Creatinine, Serum 0.58 mg/dL (0.55-1.02); EST Glomerular Filtration Rate 112 mL/min (>60); Est Glom Filt Rate - Afr Amer 135 mL/min (>60); Estimated Creatinine Clearance 81.37 ml/min; Glucose 184 mg/dL (74-106); Potassium 3.7 mmol/L (3.5-5.1); Sodium Level 141 mmol/L (136-145)
[2024-06-11] MEDS: Furosemide 40 MG Tablet PO ×2 (08:28→17:21)
[2024-06-11] MEDS: Potassium Chloride Oral Tablet 20 MEQ PO ×2 (08:28→17:20)
[2024-06-11] MEDS: hydroCHLOROthiazide 25 MG Tablet PO (08:28)
[2024-06-11] MEDS: predniSONE 20 MG Tablet 40 MG PO (08:29)
[2024-06-11] MEDS: Sertraline 100 MG Tablet PO (08:31)
[2024-06-11] MEDS: Enoxaparin 40 MG/0.4 ML Syringe SC (08:31)
[2024-06-11] MEDS: Lisinopril 20 MG Tablet PO (08:32)
[2024-06-11] MEDS: Senna/Docusate Sodium 1 Tablet 2 TABLET PO (08:39)
--- NOTE | 2024-06-11 09:43 | PCM.PN.HOSP ---
Reason for Visit Reason for Visit: Diagnoses Chronic obstructive pulmonary disease with (acute) exacerbation (06/07/24) Acute respiratory failure with hypoxia (06/07/24) Acute respiratory failure with hypercapnia (06/07/24) Subjective Subjective Patient seen still remains on supplemental oxygen 6 to 8 L at rest. Objective Data Objective Data Vital Signs: Vital Signs Temp Pulse Resp BP Pulse Ox O2 Del Method O2 Flow Rate 97.0 F L 64 16 133/56 H 95 High Flow 6 06/11/24 05:30 06/11/24 06:56 06/11/24 06:56 06/11/24 05:30 06/11/24 06:56 06/11/24 06:56 06/11/24 06:56 FiO2 50 06/10/24 22:36 Oxygen Flow Rate (L/min) 6 Oxygen Delivery Method High Flow Weight: 91.4 kg Body Mass Index (BMI) 31.5 Intake & Output: Intake and Output for Last 24 Hours 06/09/24 06/10/24 06/11/24 23:59 23:59 23:59 Intake Total 655 / 655 1335 / 1685 700 / 700 Balance 655 / 655 1335 / 1685 700 / 700 Lab / Micro Data 06/11/24 04:59 06/11/24 04:59 Labs: Laboratory Results - last 24 hr 06/11/24 04:59: WBC 8.2, RBC 4.07 L, Hgb 12.3, Hct 41.0, MCV 100.7 H, MCH 30.2, MCHC 30.0 L, RDW Std Deviation 50.0 H, RDW Coeff of Keila 13.4, Plt Count 186, MPV 9.4, Immature Gran % (Auto) 0.600, Neut % (Auto) 66.4, Lymph % (Auto) 20.1, [place] % (Auto) 11.3 H, Eos % (Auto) 1.2, Baso % (Auto) 0.4, Absolute Neuts (auto) 5.5, Absolute Lymphs (auto) 1.65, Nucleated RBC % 0, Sodium 141, Potassium 3.7, Chloride 92 L, Carbon Dioxide > 45.0 H*, Anion Gap TNP, BUN 22 H, Creatinine 0.58, Estim Creat Clear Calc 81.37, Est GFR (MDRD) Af Amer 135, Est GFR (MDRD) Non-Af 112, BUN/Creatinine Ratio 38.2 H, Glucose 184 H, Calcium 9.4 Micro: Microbiology 06/07/24 10:35 Blood Culture (Wb) #2 - Left Wrist Blood Culture - Preliminary No growth in 48 hours. 06/07/24 10:15 Blood Culture (Wb) - Left Wrist Blood Culture - Preliminary No growth in 48 hours. 06/08/24 12:23 Mucosa - Nasopharyngeal Respiratory Panel (PCR) - Final 06/07/24 10:15 Mucosa - Nose SARS-CoV-2, Influenza & RSV (PCR) - Final Physical Exam Narrative GENERAL: Patient is cooperative HEENT: Atraumatic; normocephalic EYES; Anicteric, Normal Conjunctiva NECK; supple, normal thyroid, RESPIRATORY: Diminished to auscultation CARDIOVASCULAR: Regular S1 S2, GI: soft, normoactive bowel sounds, : No Renal angle tenderness; EXTREMITIES: No edema, no clubbing, MUSCULOSKELETAL: no muscle wasting NEURO: no lateralizing signs. SKIN: No Rash PSYCH; Flat affect Assessment & Plan Assessment/Plan (1) Acute respiratory failure with hypoxia and hypercarbia: (2) Acute exacerbation of chronic obstructive pulmonary disease (COPD): PLAN: Plan Patient is a 63-year-old lady brought to the emergency department by the on account of progressive shortness of breath 1. Acute hypoxic and hypercapnic respiratory failure ? Multifactorial including COPD with acute exacerbation as well as congestive heart failure. CT of the chest obtained was negative for PE patient was however noted to have bilateral upper lobe interstitial edema and extensive pulmonary edema and small right pleural effusion with minimal ascites. Patient admitted to the intensive care unit placed on noninvasive ventilation BiPAP consultation placed to pulmonary medicine ? 06/08/2024; patient remains on noninvasive ventilation via BiPAP. Repeat ABG last evening still demonstrated presence of significant hypercapnia ? 06/09/2024; patient has been weaned off noninvasive ventilation currently on nasal cannula. Patient however remains significantly dyspneic at rest ? 06/10/2024;Patient seen clinical condition continues to improve. Requested for 6 minutes walk to determine patient readiness for discharge ? 06/11/2024; patient still requiring significant amount of oxygen at rest currently at 6 to 8 L at rest 2. COPD with acute exacerbation ? Patient started on bronchodilator treatment, systemic steroid as well as antibiotic therapy. Patient placed on oxygen titrated to keep saturation greater than 90. 3. Acute congestive heart failure with preserved ejection fraction ? Type unspecified at this point. Patient was noted to have pulmonary edema on her CAT scan started on furosemide, placed on low-sodium diet strict input and output Daily weights supplemental oxygen and echo ordered for EF assessment ? 06/08/2024; patient is in negative fluid balance of 0.7 L since admission ? 06/09/2024; 2D echo did showNormal LV size. Left ventricular systolic function is normal. The left ventricular ejection fraction is 60 %. Mild concentric left ventricular hypertrophy 4. Chronic hypoxic respiratory failure ? Patient is on baseline home O2 5. Hypertension ? Blood pressure controlled, home medications continued with dose adjustment as needed 6. Tobacco dependence ? Counseled on cessation, offered nicotine patch for tobacco cravings 7. DVT prophylaxis ? On enoxaparin 8. Hypokalemia ? Secondary to use of diuretics, corrected per protocol repeat BMP ordered for a.m. Time spent in the patient's overall evaluation,decision-making process, review of diagnostic data, adjustment of management, discussion with other providers, nursing nursing and ancillary staff involved in patient's care documentation, 38 minutes Charges/Coding Visit Charges Inpatient E&M: 43465 Subs Hosp L2
[2024-06-11] MEDS: Azithromycin 250 MG Tablet 500 MG PO (12:10)
--- NOTE | 2024-06-11 12:52 | PN.CC_ITS ---
Objective Data Objective Data Vital Signs: Vital Signs Last response 3 Temperature 37.4 C H 06/11/24 12:00 Temperature Source Oral 06/11/24 12:00 Pulse Rate 89 06/11/24 12:00 Pulse Strength Normal (2+) 06/10/24 22:00 Respiratory Rate 18 06/11/24 12:00 Respiratory Effort Normal, Non-Labored 06/11/24 06:00 Respiratory Depth Normal 06/11/24 06:00 Respiratory Pattern Normal 06/11/24 11:37 Blood Pressure 154/63 H 06/11/24 12:00 Blood Pressure Mean 93 06/11/24 12:00 Blood Pressure Source Monitor 06/11/24 12:00 Blood Pressure Position Semi-Fowlers 06/11/24 12:00 Blood Pressure Location Left Arm 06/11/24 12:00 Pulse Ox 91 06/11/24 12:00 Oxygen Delivery Method Nasal Cannula 06/11/24 12:00 Oxygen Flow Rate (L/min) 5 06/11/24 12:00 Fraction of Inspired Oxygen (FIO2) 50 06/10/24 22:36 I&O: I&O Last 24 Hours 3 06/10/24 06/11/24 06/11/24 23:59 11:59 23:59 Intake Total 980 / 1685 700 / 700 Balance 980 / 1685 700 / 700 I&O: Total Stay 3 06/07/24 09:45 thru 06/11/24 06:00 Intake Total 4073.25 Output Total 2175 Balance 1898.25 Current Meds Ordered / Administered: Current meds ordered / Administered 3 Generic Name Dose Route Start Last Admin Trade Name Freq PRN Reason Stop Dose Admin Acetaminophen 650 mg 06/07/24 14:06/10/24 21:54 Acetaminophen 325 Mg Tablet PO 650 mg Q6H PRN PRN Administration Pain 1-10 Or Fever>100.7 Al Hydroxide/Mg Hydroxide 30 ml 06/07/24 14:06/09/24 12:24 Mag Hydrox/Al Hydrox/Simeth 30 Ml Udc PO 30 ml Q6H PRN PRN Administration Gastric Burning Albuterol Sulfate 2.5 mg 06/07/24 14:06/07/24 21:10 Albuterol 2.5 Mg/3 Ml Vial.Neb. INHALATION 2.5 mg Q2H PRN PRN Administration SOB &/OR WHEEZING Albuterol/Ipratropium 3 ml 06/07/24 14:01 06/11/24 11:36 Ipratropium/Albuterol Sulfate 3 Ml Ampul.Neb INHALATION 3 ml Q4H.RT JOCELYNE Administration Azithromycin 500 mg 06/11/24 12:00 06/11/24 12:10 Azithromycin 250 Mg Tablet PO 500 mg Q24 JOCELYNE Administration Calcium/Vitamin D 1 tablet 06/09/24 12:00 06/09/24 11:45 Calcium Carb/Vitamin D 1 Tablet Tablet PO 1 tablet MoWeFr@1200 JOCELYNE Administration Enoxaparin Sodium 40 mg 06/08/24 10:00 06/11/24 08:31 Enoxaparin 40 Mg/0.4 Ml Syringe SC 40 mg DAILY JOCELYNE Administration Furosemide 40 mg 06/08/24 18:00 06/11/24 08:28 Furosemide 40 Mg Tablet PO 40 mg BIDLX JOCELYNE Administration Protocol Guaifenesin 10 ml 06/07/24 14:01 06/08/24 21:36 Guaifenesin 10 Ml Udc (200mg/10ml) PO 10 ml Q4H PRN PRN Administration COUGH Guaifenesin 1,200 mg 06/11/24 12:00 Guaifenesin 1,200 Mg Tablet PO BID JOCELYNE Hydrochlorothiazide 25 mg 06/09/24 10:00 06/11/24 08:28 Hydrochlorothiazide 25 Mg Tablet PO 25 mg DAILY JOCELYNE Administration Hydroxyzine Pamoate 25 mg 06/08/24 11:12 06/08/24 21:36 Hydroxyzine Rosi 25 Mg Capsule PO 25 mg TID PRN PRN Administration ANXIETY/RESTLESSNESS/SLEEP Sodium Chloride 100 mls @ 15 mls/hr 06/07/24 14:24 06/09/24 08:15 IV Infused .Q6H40M PRN Infusion Saline Flush Sodium Chloride 100 mls @ 15 mls/hr 06/07/24 14:24 IV .Q6H40M PRN Additional IVPB Infusion Lisinopril 20 mg 06/09/24 10:00 06/11/24 08:32 Lisinopril 20 Mg Tablet PO 20 mg DAILY JOCELYNE Administration Melatonin 3 mg 06/07/24 14:01 Melatonin 3 Mg Tablet PO QHS PRN PRN INSOMNIA Ondansetron HCl 4 mg 06/07/24 14:01 Ondansetron 4 Mg/2 Ml Vial IV Q8H PRN PRN NAUSEA/VOMITING Polyethylene Glycol 17 gm 06/12/24 10:00 Polyethylene Glycol 3350 17 Gm Packet PO DAILY JOCELYNE Potassium Chloride 20 meq 06/09/24 17:00 06/11/24 08:28 Potassium Chloride Oral Tablet 20 Meq PO 20 meq BIDCM JOCELYNE Administration Prednisone 40 mg 06/09/24 08:00 06/11/24 08:29 Prednisone 20 Mg Tablet PO 40 mg DAILY@0800 JOCELYNE Administration Senna/Docusate Sodium 2 tablet 06/07/24 14:01 06/11/24 08:39 Senna/Docusate Sodium 1 Tablet PO 2 tablet BID PRN PRN Administration Constipation Sertraline HCl 100 mg 06/09/24 10:00 06/11/24 08:31 Sertraline 100 Mg Tablet PO 100 mg DAILY JOCELYNE Administration Sodium Chloride 10 - 40 ml 06/07/24 14:24 06/08/24 14:48 0.9% Saline Lock 10 Ml Syringe IV 10 ml UD PRN Administration SALINE FLUSH Sodium Chloride 2 spray 06/08/24 09:17 06/08/24 11:05 Sodium Chloride 0.65% 1 [place].Btl NASAL 2 spray TID PRN PRN Administration NASAL DRYNESS Lab / Micro Data Attestation: I reviewed the patient's lab results. 06/11/24 04:59 06/11/24 04:59 Labs: Laboratory Results - last 24 hr 06/11/24 04:59: WBC 8.2, RBC 4.07 L, Hgb 12.3, Hct 41.0, MCV 100.7 H, MCH 30.2, MCHC 30.0 L, RDW Std Deviation 50.0 H, RDW Coeff of Keila 13.4, Plt Count 186, MPV 9.4, Immature Gran % (Auto) 0.600, Neut % (Auto) 66.4, Lymph % (Auto) 20.1, [place] % (Auto) 11.3 H, Eos % (Auto) 1.2, Baso % (Auto) 0.4, Absolute Neuts (auto) 5.5, Absolute Lymphs (auto) 1.65, Nucleated RBC % 0, Sodium 141, Potassium 3.7, C hloride 92 L, Carbon Dioxide > 45.0 H*, Anion Gap TNP, BUN 22 H, Creatinine 0.58, Estim Creat Clear Calc 81.37, Est GFR (MDRD) Af Amer 135, Est GFR (MDRD) Non-Af 112, BUN/Creatinine Ratio 38.2 H, Glucose 184 H, Calcium 9.4 Assessment and Plan . Assessment and plan: IMPRESSIONS: 1. Acute on chronic combined respiratory failure; multifactorial with components of AECOPD, +/- infection and/ or diastolic heart failure 2. Chronic tobacco dependency/hypertension/depression/anxiety RECOMMENDATIONS: 1. Continue supplemental oxygen to maintain saturations at or above 90%. 2. Continue PAP therapy with QHS as tolerated. 3. Continue scheduled bronchodilators and IV steroids. 4. Continue empiric antibiotics to complete 7 days of therapy. 5. Continue appropriate DVT prophylaxis. 6. Outpatient follow-up with Dr. Mackenzie (Pulmonary) after discharge. 7. trial of humabid 1200 mg BID Critical Care Time: 50 minutes The entirety of this encounter was done via Telemedicine Physical Exam Const alert and oriented x3 General Appearance: cooperative Eyes PERRL and no scleral icterus Neck full ROM Resp Effort and Inspection: uses accessory muscles and prolonged expiratory phase Auscultation: diminished lung sounds Subjective Subjective Still desaturates easily with any activity, e.g., sats drop with use of incentive spirometer. Able to tolerate NIV for only 3 hours overnigh per staff.
[2024-06-11] MEDS: guaiFENesin 1,200 MG Tablet 1200 MG PO ×2 (15:42→22:44)
[2024-06-11] MEDS: Acetaminophen 325 MG Tablet 650 MG PO (17:24)
[2024-06-11] MEDS: MENTHOL 226.8 GM JAR 1 APPLIC TOPICAL (18:26)
[2024-06-12] VITALS (7 sets, daily range): BP systolic 103–124; BP diastolic 48–63; PULSE 74–91; RESP 14–22; TEMP 35.6–37.1; O2SAT 86–98; BMI 31.5
[2024-06-12] MEDS: MENTHOL 226.8 GM JAR 1 APPLIC TOPICAL (04:07)
[2024-06-12 07:13] LABS: Absolute Lymphocyte Count 2.39 X10^3/uL (0.83-4.51); Absolute Neutrophil Count 5.3 X10^3/uL (2.0-7.7); Basophil# 0.03 X10^3/uL; Basophil% 0.3 % (0-1); Eosinophil# 0.15 X10^3/uL; Eosinophils% 1.7 % (0-5); Hematocrit 44.9 % (37-47); Hemoglobin 13.6 g/dL (12.0-15.0); Lymphocyte # 2.39 X10^3/ul (0.83-4.51); Mean Corp Hgb Conc 30.3 g/dL (32-36); Mean Corpuscular Volume 99.1 fL (81-99); Mean Platelet Vol. 9.9 fl (6.2-12.0); Monocyte# 0.94 X10^3/uL; Monocyte% 10.6 % (0-10); NRBC Flagged by Analyzer 0 % (0-5); Neutrophil % 59.9 % (47-70); Platelet Count 202 K/mm3 (150-450); RBC Distribution Width CV 13.4 % (11.6-14.6); RBC Distribution Width SD 49.1 fl (35.1-43.9); Red Blood Count 4.53 M/mm3 (4.2-5.4); White Blood Count 8.9 K/mm3 (4.4-11.0)
[2024-06-12] MEDS: Ipratropium/Albuterol Sulfate 3 ML AMPUL.NEB INHALATION ×3 (07:22→11:33)
[2024-06-12 07:49] LABS: Anion Gap 2 (5-15); BUN 19 mg/dL (7-18); BUN/Creat Ratio 31.9 RATIO (10-20); Calcium,Total 9.2 mg/dL (8.5-10.1); Chloride 91 mmol/L (98-107); EST Glomerular Filtration Rate 107 mL/min (>60); Est Glom Filt Rate - Afr Amer 130 mL/min (>60); Estimated Creatinine Clearance 81.37 ml/min; Glucose 106 mg/dL (74-106); Potassium 4.1 mmol/L (3.5-5.1); Sodium Level 137 mmol/L (136-145)
--- NOTE | 2024-06-12 08:09 | PCM.PN.HOSP ---
Reason for Visit Reason for Visit: Diagnoses Chronic obstructive pulmonary disease with (acute) exacerbation (06/07/24) Acute respiratory failure with hypoxia (06/07/24) Acute respiratory failure with hypercapnia (06/07/24) Subjective Subjective Patient seen clinical condition significantly improved. Patient will be assessed for discharge Objective Data Objective Data Vital Signs: Vital Signs Temp Pulse Resp BP Pulse Ox O2 Del Method O2 Flow Rate 96.0 F L 74 18 109/48 L 95 Nasal Cannula 5 06/12/24 03:00 06/12/24 07:22 06/12/24 07:22 06/12/24 03:00 06/12/24 07:22 06/12/24 07:22 06/12/24 07:22 FiO2 50 06/12/24 00:00 Oxygen Flow Rate (L/min) 5 Oxygen Delivery Method Nasal Cannula Weight: 91.4 kg Body Mass Index (BMI) 31.5 Intake & Output: Intake and Output for Last 24 Hours 06/10/24 06/11/24 06/12/24 23:59 23:59 23:59 Intake Total 1335 / 1685 1860 / 2360 900 / 900 Balance 1335 / 1685 1860 / 2360 900 / 900 Lab / Micro Data 06/12/24 06:19 06/12/24 06:19 Labs: Laboratory Results - last 24 hr 06/12/24 06:19: WBC 8.9, RBC 4.53, Hgb 13.6, Hct 44.9, MCV 99.1 H, MCH 30.0, MCHC 30.3 L, RDW Std Deviation 49.1 H, RDW Coeff of Keila 13.4, Plt Count 202, MPV 9.9, Immature Gran % (Auto) 0.500, Neut % (Auto) 59.9, Lymph % (Auto) 27.0, [place] % (Auto) 10.6 H, Eos % (Auto) 1.7, Baso % (Auto) 0.3, Absolute Neuts (auto) 5.3, Absolute Lymphs (auto) 2.39, Nucleated RBC % 0, Sodium 137, Potassium 4.1, Chloride 91 L, Carbon Dioxide 44.0 H, Anion Gap 2 L, BUN 19 H, Creatinine 0.60, Estim Creat Clear Calc 81.37, Est GFR (MDRD) Af Amer 130, Est GFR (MDRD) Non-Af 107, BUN/Creatinine Ratio 31.9 H, Glucose 106, Calcium 9.2 Micro: Microbiology 06/07/24 10:35 Blood Culture (Wb) #2 - Left Wrist Blood Culture - Preliminary No growth in 48 hours. 06/07/24 10:15 Blood Culture (Wb) - Left Wrist Blood Culture - Preliminary No growth in 48 hours. 06/08/24 12:23 Mucosa - Nasopharyngeal Respiratory Panel (PCR) - Final 06/07/24 10:15 Mucosa - Nose SARS-CoV-2, Influenza & RSV (PCR) - Final Physical Exam Narrative GENERAL: Patient is cooperative HEENT: Atraumatic; normocephalic EYES; Anicteric, Normal Conjunctiva NECK; supple, normal thyroid, RESPIRATORY: Diminished to auscultation CARDIOVASCULAR: Regular S1 S2, GI: soft, normoactive bowel sounds, : No Renal angle tenderness; EXTREMITIES: No edema, no clubbing, MUSCULOSKELETAL: no muscle wasting NEURO: no lateralizing signs. SKIN: No Rash PSYCH; Flat affect Assessment & Plan Assessment/Plan (1) Acute respiratory failure with hypoxia and hypercarbia: (2) Acute exacerbation of chronic obstructive pulmonary disease (COPD): PLAN: Plan Patient is a 63-year-old lady brought to the emergency department by the on account of progressive shortness of breath 1. Acute hypoxic and hypercapnic respiratory failure ? Multifactorial including COPD with acute exacerbation as well as congestive heart failure. CT of the chest obtained was negative for PE patient was however noted to have bilateral upper lobe interstitial edema and extensive pulmonary edema and small right pleural effusion with minimal ascites. Patient admitted to the intensive care unit placed on noninvasive ventilation BiPAP consultation placed to pulmonary medicine ? 06/08/2024; patient remains on noninvasive ventilation via BiPAP. Repeat ABG last evening still demonstrated presence of significant hypercapnia ? 06/09/2024; patient has been weaned off noninvasive ventilation currently on nasal cannula. Patient however remains significantly dyspneic at rest ? 06/10/2024;Patient seen clinical condition continues to improve. Requested for 6 minutes walk to determine patient readiness for discharge ? 06/11/2024; patient still requiring significant amount of oxygen at rest currently at 6 to 8 L at rest 2. COPD with acute exacerbation ? Patient started on bronchodilator treatment, systemic steroid as well as antibiotic therapy. Patient placed on oxygen titrated to keep saturation greater than 90. 3. Acute congestive heart failure with preserved ejection fraction ? Type unspecified at this point. Patient was noted to have pulmonary edema on her CAT scan started on furosemide, placed on low-sodium diet strict input and output Daily weights supplemental oxygen and echo ordered for EF assessment ? 06/08/2024; patient is in negative fluid balance of 0.7 L since admission ? 06/09/2024; 2D echo did showNormal LV size. Left ventricular systolic function is normal. The left ventricular ejection fraction is 60 %. Mild concentric left ventricular hypertrophy 4. Chronic hypoxic respiratory failure ? Patient is on baseline home O2 5. Hypertension ? Blood pressure controlled, home medications continued with dose adjustment as needed 6. Tobacco dependence ? Counseled on cessation, offered nicotine patch for tobacco cravings 7. DVT prophylaxis ? On enoxaparin 8. Hypokalemia ? Secondary to use of diuretics, corrected per protocol repeat BMP ordered for a.m. Time spent in the patient's overall evaluation,decision-making process, review of diagnostic data, adjustment of management, discussion with other providers, nursing nursing and ancillary staff involved in patient's care documentation, 38 minutes
[2024-06-12] MEDS: predniSONE 20 MG Tablet 40 MG PO (09:20)
[2024-06-12] MEDS: Potassium Chloride Oral Tablet 20 MEQ PO (09:20)
[2024-06-12] MEDS: hydroCHLOROthiazide 25 MG Tablet PO (09:21)
[2024-06-12] MEDS: Enoxaparin 40 MG/0.4 ML Syringe SC (09:21)
[2024-06-12] MEDS: Furosemide 40 MG Tablet PO (09:21)
[2024-06-12] MEDS: Polyethylene Glycol 3350 17 GM PACKET PO (09:22)
[2024-06-12] MEDS: Sertraline 100 MG Tablet PO (09:22)
[2024-06-12] MEDS: Azithromycin 250 MG Tablet 500 MG PO (09:22)
[2024-06-12] MEDS: guaiFENesin 1,200 MG Tablet 1200 MG PO (09:22)
[2024-06-12] MEDS: Lisinopril 20 MG Tablet PO (09:22)
[2024-06-12] MEDS: Calcium Carb/Vitamin D 1 TABLET Tablet PO (11:20)
--- NOTE | 2024-06-12 11:31 | PCM.DC.SUM ---
Providers Date of Admission: 06/07/24 Date of Discharge: 06/12/24 Primary Care Physician: Dr. Vu Aguilera MD Consultations 06/07/24 14:01 Consult: Personal Banking Advisor / Pulmonary Medicine Routine Consulting Provider: Intensivists/Pulmonary Med Reason for Consult: Acute hypoxic respiratory failure EMERGENT Consult: No MD Notified: Yes Date Notified: 06/07/24 Time Notified: 13:51 Method of Notification: Text Reason For Visit: ACUTE HYPOXIC RESPIRATORY FAILURE Diagnosis Discharge Diagnosis (1) Acute respiratory failure with hypoxia and hypercarbia: Status: Acute Code(s): J96.01 - Acute respiratory failure with hypoxia; J96.02 - Acute respiratory failure with hypercapnia (2) Acute exacerbation of chronic obstructive pulmonary disease (COPD): Status: Chronic Code(s): J44.1 - Chronic obstructive pulmonary disease with (acute) exacerbation Plan Patient is a 63-year-old lady brought to the emergency department by the on account of progressive shortness of breath 1. Acute hypoxic and hypercapnic respiratory failure ? Multifactorial including COPD with acute exacerbation as well as congestive heart failure. CT of the chest obtained was negative for PE patient was however noted to have bilateral upper lobe interstitial edema and extensive pulmonary edema and small right pleural effusion with minimal ascites. Patient admitted to the intensive care unit placed on noninvasive ventilation BiPAP consultation placed to pulmonary medicine ? 06/08/2024; patient remains on noninvasive ventilation via BiPAP. Repeat ABG last evening still demonstrated presence of significant hypercapnia ? 06/09/2024; patient has been weaned off noninvasive ventilation currently on nasal cannula. Patient however remains significantly dyspneic at rest ? 06/10/2024;Patient seen clinical condition continues to improve. Requested for 6 minutes walk to determine patient readiness for discharge ? 06/11/2024; patient still requiring significant amount of oxygen at rest currently at 6 to 8 L at rest ? I have reviewed the oxygen testing, and this patient qualifies for the home equipment and portability. The patient is mobile in the home and the community. 2. COPD with acute exacerbation ? Patient started on bronchodilator treatment, systemic steroid as well as antibiotic therapy. Patient placed on oxygen titrated to keep saturation greater than 90. 3. Acute congestive heart failure with preserved ejection fraction ? Type unspecified at this point. Patient was noted to have pulmonary edema on her CAT scan started on furosemide, placed on low-sodium diet strict input and output Daily weights supplemental oxygen and echo ordered for EF assessment ? 06/08/2024; patient is in negative fluid balance of 0.7 L since admission ? 06/09/2024; 2D echo did showNormal LV size. Left ventricular systolic function is normal. The left ventricular ejection fraction is 60 %. Mild concentric left ventricular hypertrophy 4. Chronic hypoxic respiratory failure ? Patient is on baseline home O2 5. Hypertension ? Blood pressure controlled, home medications continued with dose adjustment as needed 6. Tobacco dependence ? Counseled on cessation, offered nicotine patch for tobacco cravings 7. DVT prophylaxis ? On enoxaparin 8. Hypokalemia ? Secondary to use of diuretics, corrected per protocol repeat BMP ordered for a.m. Time spent in the patient's overall evaluation,decision-making process, review of diagnostic data, adjustment of management, discussion with other providers, nursing nursing and ancillary staff involved in patient's care documentation, 38 minutes Medications at Discharge Home Medications albuterol sulfate 90 mcg/actuation aerosol inhaler 1 puff inhalation Q6H PRN SOB 09/19/21 calcium 600 mg (as carbonate)-vitamin D3 10 mcg (400 unit) tablet (Calcium 600 + D(3)) 1 tab PO MOWEFR 09/19/21 fluticasone fur. 100 mcg-umeclid 62.5 mcg-vilant 25 mcg inhalat.powder (Trelegy Ellipta) 1 inh inhalation DAILY 09/19/21 lisinopril 20 mg-hydrochlorothiazide 25 mg tablet 1 tab PO DAILY 09/19/21 naproxen sodium 220 mg tablet (Aleve) 220 mg PO BID PRN Pain 09/19/21 omega 7-aks-ura-fish oil 1,200 mg (144 mg-216 mg) capsule (Fish Oil) 1,200 cap PO DAILY 09/19/21 simethicone 80 mg chewable tablet 80 mg PO QHS PRN Indigestion 09/19/21 prednisone 10 mg tablet 10 mg PO DAILY #32 tabs 01/22/23 sertraline 100 mg tablet 100 mg PO DAILY mood 06/08/24 azithromycin 250 mg tablet 500 mg (2 x 250 mg) PO Q24 #5 tabs 06/12/24 furosemide 40 mg tablet 40 mg PO DAILY #30 tabs 06/12/24 guaifenesin 1,200 mg tablet, extended release 12 hr (Mucus Relief ER) 1,200 mg PO BID #20 tabs 06/12/24 prednisone 20 mg tablet 40 mg (2 x 20 mg) PO DAILY@0800 5 days #10 tabs 06/12/24 sodium chloride 0.65 % nasal spray aerosol (Deep Sea Nasal) 2 spray NASAL TID PRN PRN NASAL DRYNESS #0 mL 06/12/24 Physical Exam Narrative GENERAL: Patient is cooperative HEENT: Atraumatic; normocephalic EYES; Anicteric, Normal Conjunctiva NECK; supple, normal thyroid, RESPIRATORY: Diminished to auscultation CARDIOVASCULAR: Regular S1 S2, GI: soft, normoactive bowel sounds, : No Renal angle tenderness; EXTREMITIES: No edema, no clubbing, MUSCULOSKELETAL: no muscle wasting NEURO: no lateralizing signs. SKIN: No Rash PSYCH; Flat affect Weight / BMI Weight Weight: 91.4 kg Body Mass Index (BMI) 31.5 ABG / Lab / Microbiology Data 06/12/24 06:19 06/12/24 06:19 Laboratory: Laboratory Results - last 24 hr 06/12/24 06:19: WBC 8.9, RBC 4.53, Hgb 13.6, Hct 44.9, MCV 99.1 H, MCH 30.0, MCHC 30.3 L, RDW Std Deviation 49.1 H, RDW Coeff of Keila 13.4, Plt Count 202, MPV 9.9, Immature Gran % (Auto) 0.500, Neut % (Auto) 59.9, Lymph % (Auto) 27.0, Holmes % (Auto) 10.6 H, Eos % (Auto) 1.7, Baso % (Auto) 0.3, Absolute Neuts (auto) 5.3, Absolute Lymphs (auto) 2.39, Nucleated RBC % 0, Sodium 137, Potassium 4.1, Chloride 91 L, Carbon Dioxide 44.0 H, Anion Gap 2 L, BUN 19 H, Creatinine 0.60, Estim Creat Clear Calc 81.37, Est GFR (MDRD) Af Amer 130, Est GFR (MDRD) Non-Af 107, BUN/Creatinine Ratio 31.9 H, Glucose 106, Calcium 9.2 Microbiology: Microbiology 06/07/24 10:15 Blood Culture (Wb) - Left Wrist Blood Culture - Final No growth in 5 days. 06/07/24 10:35 Blood Culture (Wb) #2 - Left Wrist Blood Culture - Preliminary No growth in 48 hours. 06/08/24 12:23 Mucosa - Nasopharyngeal Respiratory Panel (PCR) - Final 06/07/24 10:15 Mucosa - Nose SARS-CoV-2, Influenza & RSV (PCR) - Final D/C Instructions Discharge Diet: No restrictions Discharge Activity: Return to Normal Activity Call your doctor if you observe: Fever of 101 or Higher, Shortness of breath, Fainting spells and Chest pain DC O2, CPAP, BIPAP Needs RN Home O2 Qualification: Home O2 Qualification: Is the patient on home oxygen Yes 06/12/24 10:19 Home O2 Qualification: AT REST 1-Pulse Ox at rest 92 06/12/24 10:19 1- Oxygen flow rate at rest 4 06/12/24 10:19 2-Pulse Ox at rest 93 06/10/24 10:23 2- Oxygen flow rate at rest 6 06/10/24 10:23 Home O2 Qualification: WITH AMBULATION 1- Pulse Ox with ambulation 86 06/12/24 10:19 1- Oxygen Flow Rate with 4 06/12/24 10:19 ambulation 2- Pulse Ox with ambulation 90 06/12/24 10:19 2- Oxygen Flow Rate with 6 06/12/24 10:19 ambulation 3- Pulse Ox with ambulation 90 06/11/24 12:00 3- Oxygen Flow Rate with 15 06/11/24 12:00 ambulation 3- Stopped test - Unable to Yes 06/11/24 12:00 obtain pulse ox >89% w/ max oxyg PSN CPAP & BiPAP: BiPAP & CPAP Settings per PSN Mode BiPAP 06/12/24 00:00 Bipap Delivery Device Face Mask 06/12/24 00:00 BiPAP Inspiratory Pressure 16 06/12/24 00:00 BiPAP Expiratory Pressure 8 06/12/24 00:00 BiPAP Rate 14 06/12/24 00:00 Fraction of Inspired Oxygen ( 50 06/12/24 00:00 FIO2) Total Flow Rate 40 06/09/24 03:25 Home O2 Discharge instructions: Yes Type of respiratory needs?: Oxygen Oxygen frequency: Continuous Continuous oxygen liters per minute: 4 and With Ambulation Oxygen liters per minute during Ambulation: 6 DC home with Oxygen: Yes Home O2 MD Review: I have reviewed the oxygen testing, and the patient qualifies for home oxygen equipment and portability. The patient is mobile in the home and the community. Meaningful Use Info Meaningful Use Meaningful Use Diagnoses (Choose all that apply): CHF CHF SHRUTHI/ARB ordered at discharge?: Yes Documented LVEF (%): 60 Ischemic Stroke Statin Dosing Therapy Reference: STATIN DOSE THERAPY REFERENCE: * Patients > 75 years receive moderate or high dose statin therapy. * Patients 75 years or YOUNGER should receive HIGH intensity statin dose unless contraindicated. You will be required to document reason for non-treatment if statin daily dose does not meet guidelines. HIGH DOSE STATIN THERAPY DAILY Atorvastatin > than or = to 40 mg Rosuvastatin > than or = to 20 mg Amlodipine + Atorvastatin > than or = to 2.5/40 mg Ezetimibe + Simvastatin 10/80 mg Simvastatin 80mg Discharge Plan Admission Admit Date/Time: 06/07/24 13:36 Attending Provider: Jim Gill Primary Care Provider: Vu Aguilera Consulting Providers: Tomasz Mitchell; Eddie Hoffman; Yovany Garcia; Wil Cruz; Jim Mccall; Jairon Gallegos; Ortiz Olsen; Carol Munoz; Colton Vasquez; Jefry Riley; Fawad Pacheco; Sonia Silva; Sean Morales; Rodolfo Canseco; Willian Baumann; Pedrito Wilson; Gumaro Bass; Raul Littlejohn; Campos Ibarra; Barak Gracia; Kalen Adams Discharge Orders/Prescriptions Prescriptions: New furosemide 40 mg Tablet 40 mg PO DAILY Qty: 30 0RF azithromycin 250 mg Tablet 500 mg PO Q24 Qty: 5 0RF prednisone 20 mg Tablet 40 mg PO DAILY@0800 5 Days Qty: 10 0RF Deep Sea Nasal 0.65 % Aerosol,[place] 2 spray NASAL TID PRN PRN (Reason: NASAL DRYNESS) Qty: 0 0RF guaifenesin [Mucus Relief ER] 1,200 mg Tablet Extended Release 12hr 1,200 mg PO BID Qty: 20 0RF Continued naproxen sodium [Aleve] 220 mg Tablet 220 mg PO BID PRN (Reason: Pain) lisinopril-hydrochlorothiazide 20-25 mg Tablet 1 tab PO DAILY albuterol sulfate 90 mcg/actuation Hfa Aerosol Inhaler 1 puff INHALATION Q6H PRN (Reason: SOB) simethicone 80 mg Tablet,Chewable 80 mg PO QHS PRN (Reason: Indigestion) calcium carbonate-vitamin D3 [Calcium 600 + D(3)] 600 mg-10 mcg (400 unit) Tablet 1 tab PO MOWEFR omega 1-iei-fwp-fish oil [Fish Oil] 1,200 (144-216) mg Capsule 1,200 cap PO DAILY Trelegy Ellipta 100-62.5-25 mcg Blister With Device 1 inh INHALATION DAILY prednisone 10 mg tablet 10 mg PO DAILY Qty: 32 0RF Rx Instructions: Take 4 tablets for 3 days then 3 tablets for 3 days then 2 tablets for 3 days then 1 tablet for 3 days then half tablet for 4 days sertraline 100 mg tablet 100 mg PO DAILY Referrals / Follow Up: Vu Aguilera MD [Primary Care Provider] - Within 1 Week Tomi Mackenzie MD [Med Staff - Active Staff] - Within 2 Weeks Disposition Disposition (needs filled in before D/C Order can be placed): Home, Self Care Charges/Coding Visit Charges Inpatient E&M: 07958 Disch Hosp >30min
--- NOTE | 2024-06-12 12:23 | CASEMGMT ---
Patient has order for discharge today. Patient required increase in home oxygen, script received and updated clinicals faxed to [facility] at [phone]. RN CM in to discuss needs at discharge with patient. Patient is up independent in room. Patient states will bring POC from home for discharge. Patient denies further needs or help at discharge. Patient had no further questions or concerns.
== END 2024-06-12 13:39 | disposition home or self-care (01) | DRG 291 ==
LOC: ED 12:38 → ICU 22:08 → PCU 06-08 09:30 → ICU 06-15 10:35
PROVIDERS: Internal Medicine Critical Care Medicine; Admitting Provider Internal Medicine; Emergency Provider Emergency Medicine; PCP Family Medicine; Visit Provider Internal Medicine
DX: I11.0 Hypertensive heart disease with heart failure (principal); J96.21 Acute and chronic respiratory failure with hypoxia; J96.02 Acute respiratory failure with hypercapnia; I50.31 Acute diastolic (congestive) heart failure; J44.1 Chronic obstructive pulmonary disease with (acute) exacerbation; E87.6 Hypokalemia; F17.210 Nicotine dependence, cigarettes, uncomplicated; T50.1X5A Adverse effect of loop [high-ceiling] diuretics, initial encounter; Z99.81 Dependence on supplemental oxygen; Z79.51 Long term (current) use of inhaled steroids; Z79.899 Other long term (current) drug therapy
CPT/HCPCS: 36415; 36600; 71045; 71275; 80048; 80076; 82803; 83036; 83735; 83880; 84100; 84145; 84484; 85025; 85610; 85730; 87040; 87631; 87633; 93005; 93306; 94002; 94003; 94640; 94660; 94762; 99252; 99285; Q9957; Q9967; A4216; G0463; J1940

== ENCOUNTER → 2024-08-03 | Outpatient (CLI) | payer MEDICARE, SELFPAY ==
[2024-08-03 10:03] LABS: Absolute Lymphocyte Count 1.31 X10^3/uL (0.83-4.51); Absolute Neutrophil Count 5.8 X10^3/uL (2.0-7.7); Basophil# 0.06 X10^3/uL; Basophil% 0.8 % (0-1); Eosinophil# 0.14 X10^3/uL; Eosinophils% 1.8 % (0-5); Hematocrit 42.7 % (37-47); Hemoglobin 13.2 g/dL (12.0-15.0); Lymphocyte # 1.31 X10^3/ul (0.83-4.51); Lymphocyte % 16.7 % (19-41); Mean Corp Hgb Conc 30.9 g/dL (32-36); Mean Corpuscular Hgb 30.5 pg (27.0-32.0); Mean Corpuscular Volume 98.6 fL (81-99); Mean Platelet Vol. 9.5 fl (6.2-12.0); Monocyte# 0.47 X10^3/uL; NRBC Flagged by Analyzer 0 % (0-5); Neutrophil # 5.83 X10^3/uL (2.7-7.7); Neutrophil % 74.3 % (47-70); Platelet Count 203 K/mm3 (150-450); RBC Distribution Width CV 12.7 % (11.6-14.6); RBC Distribution Width SD 46.7 fl (35.1-43.9); Red Blood Count 4.33 M/mm3 (4.2-5.4); White Blood Count 7.8 K/mm3 (4.4-11.0)
== END | disposition home or self-care (01) ==
LOC: CVS 04-17 15:01
PROVIDERS: PCP Family Medicine; Referring Provider Internal Medicine Pulmonary Disease; Visit Provider Internal Medicine Pulmonary Disease
DX: I50.810 Right heart failure, unspecified (principal); J44.9 Chronic obstructive pulmonary disease, unspecified; G47.33 Obstructive sleep apnea (adult) (pediatric); J98.11 Atelectasis
CPT/HCPCS: 36415; 85025

== ENCOUNTER → 2025-02-14 | Outpatient (CLI) | payer MEDICARE, SELFPAY ==
--- NOTE | 2025-02-14 13:14 | RAD_ITS ---
PROCEDURE: CHEST PA AND LATERAL 02/14/2025 REASON FOR EXAM: ATELECTASIS TECHNIQUE: Procedure Code: RADCXR Modality: DX Procedure: CHEST PA AND LATERAL COMPARISON: AP chest of 06/07/2024. RAD/Chest PA and Lateral IMPRESSION: Progressive left shoulder degenerative changes. Mild thoracic spine degenerative changes are seen. No acute osseous process is seen. Lungs are moderately hyperinflated with increased interstitial markings, consis tent with chronic lung disease. Cannot exclude a mild degree of interstitial pulmonary edema, superimposed, how ever. No significant atelectasis or pneumonitis is appreciated. No pleural effusion or pneumothorax is seen. The cardiomediastinal silhouette is stable, without evidence of cardiomegaly. Reading Location: [place] [id number]
== END | disposition home or self-care (01) ==
LOC: RAD 13:06
PROVIDERS: PCP Family Medicine; Referring Provider Internal Medicine Pulmonary Disease; Visit Provider Internal Medicine Pulmonary Disease
DX: J98.11 Atelectasis (principal)
CPT/HCPCS: 71046

== ENCOUNTER 2025-02-20 10:46 | Outpatient (CLI) | payer MEDICARE, SELFPAY ==
[2025-02-20 11:43] LABS: Hematocrit 41.2 % (37-47); Hemoglobin 12.7 g/dL (12.0-15.0); Immature Granulocytes Count 0.070 X10^3/uL (0.0-0.0); Mean Corp Hgb Conc 30.8 g/dL (32-36); Mean Corpuscular Volume 100.0 fL (81-99); Mean Platelet Vol. 9.6 fl (6.2-12.0); NRBC Flagged by Analyzer 0 % (0-5); Platelet Count 217 K/mm3 (150-450); RBC Distribution Width CV 12.8 % (11.6-14.6); RBC Distribution Width SD 47.1 fl (35.1-43.9); Red Blood Count 4.12 M/mm3 (4.2-5.4); White Blood Count 9.3 K/mm3 (4.4-11.0)
[2025-02-20 12:33] LABS: Pro- Brain NATRIURETIC PEPTIDE 124 pg/mL (<=900)
== END 2025-02-20 23:59 | disposition home or self-care (01) ==
LOC: LAB 10:47
PROVIDERS: PCP Family Medicine; Referring Provider Internal Medicine Pulmonary Disease; Visit Provider Internal Medicine Pulmonary Disease
DX: J98.11 Atelectasis (principal); J44.9 Chronic obstructive pulmonary disease, unspecified
CPT/HCPCS: 36415; 83880; 85025

== ENCOUNTER → 2025-03-01 | Outpatient (CLI) | payer MEDICARE, SELFPAY ==
--- NOTE | 2025-03-01 06:39 | CT_ITS ---
PROCEDURE: CHEST WITHOUT CONTRAST 03/01/2025 REASON FOR EXAM: COPD TECHNIQUE: Chest CT without contrast. Coronal and Sagittal reconstruction series were provided. One or more dose reduction techniques were used (e.g., Automated exposure control, adjustment of the mA and/or kV according to patient size, use of iterative reconstruction technique RADIATION DOSE SUMMARY: DLP: 586 mGycm COMPARISON: June 07, 2024 FINDINGS: Hardware: None Lymph nodes: There is no visible pathologic adenopathy by size criteria. Heart and Vasculature: Coronary artery calcifications are noted. The ascending aorta is dilated to 4.0 cm in AP diameter, unchanged. Lungs and Airways: There is severe emphysema. There is no suspicious pulmonary nodule or mass. There is no acute infiltrate or consolidation. Pleura: There is no pneumothorax or effusion. Upper Abdomen: There is a 2.5 cm cyst in the central aspect of the right hepatic lobe at the ayanna hepatis, unchanged. Bones: There is no acute bony abnormality. CT/Chest without Contrast IMPRESSION: The ascending aorta is dilated to 4.0 cm in AP diameter, unchanged. There is severe emphysema with no acute infiltrate or consolidation. Reading Location: [facility]
--- OUTSIDE RECORDS SUMMARY | 2025-03-01 06:43 | XMS RPT_ITS | CCD ---
Author Organization [facility] Care Team Providers Care Sandwich Counter Attendant Name Role Phone Vu Mullins Primary Care Provider Dr. Vu Mullins Primary Care Provider Dr. Michael Frost Emergency Provider Dr. Wale Villanueva Admit Provider Dr. Wale Villanueva Attending Provider Dr. Wale Villanueva Other Provider Vu Mullins MD Primary Care Provider Vu Mullins MD Primary Care Provider Lita Rossi RN Unavailable Unavailable Vu Mullins MD Primary Care Provider VU MULLINS Attending Unavailable SUSANNA, VU Primary Care Unavailable SUSANNA, VU Attending Unavailable SUSANAN, VU Primary Care Unavailable SUSANNA, VU Attending Unavailable SUSANNA, VU Primary Care Unavailable SUSANNA, VU Attending Unavailable SUSANNA, VU Primary Care Unavailable SUSANNA, VU Referring Unavailable SUSANNA, VU Attending Unavailable SUSANNA, VU Primary Care Unavailable SUSANNA, VU Attending Unavailable SUSANNA, VU Primary Care Unavailable SUSANNA, VU Attending Unavailable SUSANNA, VU Primary Care Unavailable SUSANNA, VU Attending Unavailable SUSANNA, VU Primary Care Unavailable SUSANNA, VU Primary Care Unavailable SUSANNA, VU Attending Unavailable SUSANNA, VU Referring Unavailable SUSANNA, VU Primary Care Unavailable Susanna, Vu Primary Care Unavailable Jim Gill Attending Unavailable Jim Gill Admitting Unavailable Jim Gill Consulting Unavailable Tomasz Mitchell Consulting Unavailable Hoffman, Eddie Consulting Unavailable Yovany Garcia Consulting Unavailable Wil Cruz Consulting Unavailable Jim Mccall Consulting Unavailable Jairon Gallegos Consulting Unavailable Pretty, Ortiz Consulting Unavailable Habtegebrjuliana, Carol Consulting Unavailab le Dand, Colton Consulting Unavailable Riley, Jefry Consulting Unavailable Junior Afwad Consulting Unavailable Ricardo, Sonia Consulting Unavailable Aljundi, Lamia Consulting Unavailable Harleen, Rodolfo Consulting Unavailable Irukulla, Willian Consulting Unavailable Steve, Pedrito Consulting Unavailable Dhesi, Gumaro Consulting Unavailable Raul Littlejohn Consulting Unavailable Fernstrom, Campos Consulting Unavailable Basil, Barak Consulting Unavailable Kalen Adams Consulting Unavailable Susanna, Vu Primary Care Unavailable John Paul Groves Attending Unavailable Wil Cruz Attending Unavailable Jim Gill Referring Unavailable Avril, Tomi Paul Referring Unavailable Sibilia, Tomi Paul Attending Unavailable Susanna, Vu Primary Care Unavailable SibiliaTomi V Attending Unavailable Sibilia, Tomi V Referring Unavailable Susanna, Vu Primary Care Unavailable Sibilia, Tomi V Referring Unavailable Sibilia, Tomi V Attending Unavailable Susanna, Vu Primary Care Unavailable Tomasz Mitchell Consulting Unavailable Susanna, Vu Primary Care Unavailable Jim Gill Attending Unavailable Jim Gill Admitting Unavailable Yasmin, Eddie Consulting Unavailable Yovany Garcia Consulting Unavailable Wil Cruz Consulting Unavailable Jim Mccall Consulting Unavailable Jairon Gallegos Consulting Unavailable Pretty, Ortiz Consulting Unavailable Nikkitegecristiana, Carol Consulting Unavailab le Dand, Colton Consulting Unavailable Osvaldo, Jefry Consulting Unavailable Junior Fawad Consulting Unavailable Ricardo, Sonia Consulting Unavailable Aljundi, Lamia Consulting Unavailable Harleen, Rodolfo Consulting Unavailable Irukulla, Willian Consulting Unavailable Steve, Pedrito Consulting Unavailable Dhesi, Gumaro Consulting Unavailable Raul Littlejohn Consulting Unavailable Fernstrom, Campos Consulting Unavailable Basil, Barak Consulting Unavailable Kalen Adams Consulting Unavailable Allergies Allergy Classification Reported Allergen(s) Allergy Type Date of Onset Reaction(s) Facility Sulfamethoxazole / Trimethoprim (5 sources) Sulfamethoxazole / Trimethoprim Drug Allergy 02-14-20 19 [facility] Sulfonamides (antibiotic) (5 sources) Sulfonamides (Antibiotic) Drug Allergy 12-10-19 19 Shortness Of Breath [facility]: (20 sources) Sulfamethoxazole / Trimethoprim Drug Allergy 02-14-20 19 [place], [place] (4 sources) Sulfonamides (Antibiotic) Propensity to adverse reactions to drug 12-10-19 19 Shortness Of Breath [place], [place] (7 sources) Sulfonamides (Antibiotic); Translations: [Sulfa (Sulfonamide Antibiotics)] Allergy to substance 09-25-19 22 Angioedema [facility] (20 sources) Sulfonamides (Antibiotic) Drug Intolerance 12-10-19 19 Shortness of breath [facility] [employer] Medications Current Medications Medication Drug Class(es) Dates Sig (Normalized) Sig (Original) [id number] 200 actuat albuterol 0.09 mg/actuat metered dose inhaler (20 sources) beta2-Adrenergic Agonist Start: 02-21-2025 take 2 puff(s) by mouth every four hours albuterol 108 (90 Base) MCG/ACT inhaler Indications: Chronic obstructive pulmonary disease, unspecified COPD type (HCC) INHALE 2 PUFFS BY MOUTH AND INTO THE LUNGS EVERY 4 HOURS IF NEEDED 54 g 1 02/21/2025 Active Start: 02-17-2024 End: 02-21-2025 take 2 puff(s) by mouth every four hours albuterol 108 (90 Base) MCG/ACT inhaler Indications: Chronic obstructive pulmonary disease, unspecified COPD type (HCC) INHALE 2 PUFFS BY MOUTH AND INTO THE LUNGS EVERY 4 HOURS IF NEEDED 18 each 2 02/15/2025 02/21/2025 Discontinued (Reorder) Start: 12-21-2023 End: 02-17-2024 take 2 puff(s) by mouth every four hours albuterol 108 (90 Base) MCG/ACT inhaler Indications: Chronic obstructive pulmonary disease, unspecified COPD type (HCC) inhale 2 puff by mouth and INTO THE LUNGS every 4 hours if needed 18 g 2 01/21/2024 02/17/2024 Discontinued Start: 11-08-2023 End: 11-10-2023 take 2 puff(s) by inhalation every four hours as needed for wheezing 2 puff, Inhalation, Every 4 hours PRN, wheezing, shortness of breath, Starting on Wed11/08/23 at 2216 Start: 10-31-2023 End: 11-10-2023 2.5 mg, Nebulization, Every 2 hour PRN, wheezing, Starting on 10/31/23 at 1925, Initiate RT Bronchodilator Protocol: Start: 10-31-2023 2.5 mg, Nebuli zation, Once, On 10/31/23 at 1635, For 1 dose Start: 08-02-2023 End: 11-02-2023 take 2 puff(s) by mouth every four hours albuterol 108 (90 Base) MCG/ACT inhaler Indications: Chronic obstructive pulmonary disease, unspecified COPD type (HCC) inhale 2 puff by mouth and INTO THE LUNGS every 4 hours if needed 8.5 g 2 11/02/2023 Active Start: 06-15-2023 take 2 puff(s) by mo uth every four hours albuterol 108 (90 Base) MCG/ACT inhaler Indications: Chronic obstructive pulmonary disease, unspecified COPD type (HCC) inhale 2 puffs by mouth every 4 hours if needed 8.5 g 2 06/15/2023 Active Start: 03-01-2023 End: 04-26-2023 take 2 puff(s) by mouth every four hours for wheezing albuterol 108 (90 Base) MCG/ACT inhaler Indications: Chronic obstructive pulmonary disease, unspecified COPD type (HCC) inhale 2 puffs by mouth and INTO THE LUNGS every 4 hours if needed for shortness of breath or wheezing 8.5 g 2 04/26/2023 Active Start: 02-02-2023 End: 02-21-2025 albuterol (2.5 MG/3ML) 0.083 % nebulizer solution Indications: Chronic obstructive pulmonary disease, unspecified COPD type (HCC) Take 3 mL (2.5 mg) by nebulization 4 times daily as needed for wheezing or shortness of breath. 150 mL 1 02/21/2025 Active Start: 02-02-2023 Starting on Finley n 10/31/23 at 1622, For 1 dose, Jennifer Cyr: cabinet override Start: 05-06-2022 End: 01-12-2023 take 2 puff(s) by mouth every four hours for wheezing albuterol 108 (90 Base) MCG/ACT inhaler inhale 2 puffs by mouth and INTO THE LUNGS every 4 hours if needed for shortness of breath or wheezing Strength: 108 (90 Base) MCG/ACT 8.5 g 2 07/10/2022 Active Start: 03-27-2022 End: 02-02-2023 albuterol (2.5 MG/3ML) 0.083 % nebulizer solution inhale contents of 1 vial ( 3 milliliters ) in nebulizer by mouth... (REFER TO PRESCRIPTION NOTES). 0 03/27/2022 02/02/2023 Discontinued (Reorder) Start: 09-19-2021 take 1 puff(s) by in halation every six hours Albuterol Sulfate Active 1 PUFF INHALATION EVERY 6 HOURS September 19, 2021 3:07pm Start: 09-19-2021 take 1 puff(s) by in halation every six hours Albuterol Sulfate Active 1 PUFF INHALATION EVERY 6 HOURS September 19, 2021 12:00am Start: 05-21-2021 take 2 puff(s) by mo [facility] every four hours for wheezing albuterol sulfate HFA 108 (90 Base) MCG/ACT inhaler Indications: Other emphysema (HCC) inhale 2 puffs by mouth every 4 hours if needed for WHEEZING OR SHORTNESS OF BREATH 8.5 g 2 05/21/2021 Active Start: 11-05-2020 take 2 puff(s) by mo uth every four hours for wheezing albuterol sulfate HFA 108 (90 Base) MCG/ACT inhaler Indications: Other emphysema (HCC) inhale 2 puffs by mouth every 4 hours if needed for WHEEZING OR SHORTNESS OF BREATH 8.5 g 2 11/05/2020 Suspended Start: 04-12-2019 take 2 puff(s) by in halation every four hours as needed for wheezing VENTOLIN HFA 108 (90 Base) MCG/ACT inhaler Inhale 2 puffs into the lungs every 4 hours as needed for Wheezing 1 Inhaler 2 04/12/2019 Active Start: 04-12-2019 take 2 puff(s) by in halation every four hours as needed for wheezing VENTOLIN HFA 108 (90 Base) MCG/ACT inhaler Inhale 2 puffs into the lungs every 4 hours as needed for Wheezing 1 Inhaler 2 04/12/2019 Active Start: 04-10-2019 albuterol (PRO VENTIL) (2.5 MG/3ML) 0.083% nebulizer solution USE 1 VIAL VIA NEBULIZER EVERY 6 HOURS NEEDED FOR WHEEZING 900 mL 1 04/10/2019 Active Start: 12-09-2018 albuterol (PRO VENTIL) (2.5 MG/3ML) 0.083% nebulizer solution USE 1 VIAL VIA NEBULIZER EVERY 6 HOURS NEEDED FOR WHEEZING 900 mL 1 12/09/2018 Active Start: 11-10-2018 take 2 puff(s) by in halation every four hours as needed for wheezing VENTOLIN HFA 108 (90 Base) MCG/ACT inhaler Inhale 2 puffs into the lungs every 4 hours as needed for Wheezing 1 Inhaler 2 11/10/2018 Active apraclonidine 10 mg/ml ophthalmic solution (2 sources) alpha-Adrenergic Agonist Start: 12-30-2020 aprac lonidine (IOPIDINE) 1 % ophthalmic solution 1 drop Start: 11-25-2020 apraclonidine (IOPIDINE) 1 % ophthalmic solution 1 drop azithromycin 250 mg oral tablet (13 sources) Macrolide Antimicrobial Start: 02-16-2025 azithromycin (Zithromax) 250 MG tablet 02/16/2025 Active Start: 06-21-2024 End: 08-08-2024 azithromycin (Zithromax Z-Pa k) 250 MG tablet Take as directed 6 tablet 06/21/2024 08/08/2024 Discontinued (Therapy completed) Start: 2023 End: 10-15-2023 azithromycin (Zithromax) 250 MG tablet Indications: COPD with acute exacerbation (HCC) Take 2 tabs (500 mg) by mouth today, than 1 daily for 4 days. 6 tablet 0 2023 10/15/2023 Discontinued (Therapy completed) Start: 08-16-2023 End: 08-21-2023 azithromycin (Zithromax) 250 MG tablet Indications: COPD with acute exacerbation (HCC) Take 2 tabs (500 mg) by mouth today, than 1 daily for 4 days. 6 tablet 0 08/16/2023 08/21/2023 Active Blood Glucose Monitoring Sup pl device (20 sources) Start: 07-28-2022 Blood Glucose Monitoring Suppl device Indications: Type 2 diabetes mellitus without complication, without long-term current use of insulin ([facility]) Check glucose fasting in am and 2 hours after evening meal. 1 Device 07/28/2022 Active Start: 07-28-2022 Blood Glucose Monitoring Suppl device Indications: Type 2 diabetes mellitus without complication, without long-term current use of insulin (CMS/HCC) (HCC) Check glucose fasting in am and 2 hours after evening meal. 1 Device 07/28/2022 Active Start: 07-28-2022 Blood Glucose Monitoring Suppl device Indications: Type 2 diabetes mellitus without complication, without long-term current use of insulin (CMS/HCC) (HCC) Check glucose fasting in am and 2 hours after evening meal. 1 Device 0 07/28/2022 Suspended Start: 07-28-2022 Blood Glucose Monitoring Suppl device Indications: Type 2 diabetes mellitus without complication, without long-term current use of insulin (CMS/HCC) ([facility]) Check glucose fasting in am and 2 hours after evening meal. 1 Device 0 07/28/2022 Active calcium chloride 0.0014 meq/ ml / potassium chloride 0.004 meq/ml / sodium chloride 0.103 meq/ml / sodium lactate 0.028 meq/ml injectable solution (3 sources) Start: 04-17-2019 lactated ringe rs infusion Start: 04-03-2019 lactated ringe rs infusion 1 ml diphenhydrAMINE hydrochloride 50 mg/ml cartridge (2 sources) Histamine-1 Receptor Antagonist Start: 04-17-2019 End: 04-17-2019 diphenhydrAMINE (BENADRYL) injection 12.5 mg Start: 04-03-2019 End: 04-03-2019 diphenhydrAMINE (BENADRYL) i njection 12.5 mg Drug or medicament (substanc e) (2 sources) Fish Oils (20 sources) Start: 09-19-2021 omega-3 (fish oil) 1200 MG capsule 1,200 capsules. 09/19/2021 Active Start: 09-19-2021 omega-3 (fish oil) 1200 MG capsule 1,200 capsules. 0 09/19/2021 Suspended Start: 09-19-2021 omega-3 (fish oil) 1200 MG capsule 1,200 capsules. 0 09/19/2021 Active fluticasone propionate 0.05 mg/actuat metered dose nasal spray (20 sources) Corticosteroid Start: 03-30-2024 End: 01-16-2025 take 2 spray(s) nasal route once daily fluticasone (Flonase) 50 MCG/ACT nasal spray SPRAY 2 SPRAYS INTO EACH NOSTRIL DAILY SHAKE PRIOR 1ST USE PRIME PUMP CLEAN TIP AFTER & REPLACE CAP 16 mL 2 01/16/2025 Active Start: 02-10-2023 End: 03-30-2024 take 2 spray(s) nasal route at bedtime fluticasone (Flonase) 50 MCG/ACT nasal spray instill 2 sprays into each nostril at bedtime 16 g 2 02/10/2023 03/30/2024 Discontinued (Reorder) Start: 02-10-2023 Start: 04-23-2022 End: 02-10-2023 take 2 spray(s) nasal route once daily fluticasone (Flonase) 50 MCG/ACT nasal spray instill 2 sprays into each nostril nightly 16 g 2 04/23/2022 02/10/2023 Discontinued Start: 07-09-2021 fluticasone (F LONASE) 50 MCG/ACT nasal spray 2 sprays by Nasal route nightly 16 g 0 07/09/2021 Active 30 actuat fluticasone furoate 0.1 mg/actuat / umeclidinium 0.0625 mg/actuat / vilanterol 0.025 mg/actuat dry powder inhaler (20 sources) Anticholinergic, Corticosteroid, beta2-Adrenergic Agonist Start: 04-07-2022 take 1 puff(s) by mouth once daily Trelegy Ellipta 100-62.5-25 MCG/INH aerosol powder INHALE 1 PUFF INTO THE LUNGS ONCE DAILY WITH GOOD ORAL CARE 04/07/2022 Active Start: 04-07-2022 Start: 09-19-2021 Fluticasone-Um eclidin-Vilanter (Trelegy Ellipta) 100-62.5-25 mcg Blister With Device Active 1 INH INHALATION DAILY September 19, 2021 3:07pm Start: 09-19-2021 Fluticasone-Um eclidin-Vilanter (Trelegy Ellipta) 100-62.5-25 mcg Blister With Device Active 1 INH INHALATION DAILY September 18, 2021 11:00pm Start: 09-19-2021 Fluticasone-Um eclidin-Vilanter (Trelegy Ellipta) 100-62.5-25 mcg Blister With Device Active 1 INH INHALATION DAILY September 19, 2021 12:00am Start: 09-10-2018 take 1 puff(s) by mo [facility] once daily TRELEGY ELLIPTA 100-62.5-25 MCG/INH AEPB inhale 1 puff daily with GOOD ORAL CARE 0 09/10/2018 Active 12 hr guaiFENesin 600 mg / pseudoephedrine hydrochloride 60 mg extended release oral tablet (16 sources) alpha-Adrenergic Agonist Start: 05-03-2024 take 1 tablet by mouth every twelve hours pseudoephedrine-guaiFENesin ER (Mucinex D) 60-600 MG 12 hr tablet Take 1 tablet by mouth every 12 hours. Do not crush, chew, or split. 60 tablet 2 05/03/2024 Active 1 ml hydrALAZINE hydrochloride 20 mg/ml injection (2 sources) Arteriolar Vasodilator Start: 04-17-2019 hydrALAZINE (APRESOLINE) injection 5 mg Start: 04-03-2019 hydrALAZINE (A PRESOLINE) injection 5 mg hydroCHLOROthiazide 25 mg / lisinopril 20 mg oral tablet (20 sources) Thiazide Diuretic, Angiotensin Converting Enzyme Inhibitor Start: 11-19-2023 End: 01-11-2025 take 1 tablet by mouth once daily in the morning lisinopril-hydroCHLOROthiazide 20-25 MG tablet TAKE 1 TABLET BY MOUTH EVERY DAY IN THE MORNING 90 tablet 1 01/11/2025 Active Start: 10-04-2023 End: 11-10-2023 Start: 10-12-2022 End: 10-04-2023 take 1 tablet by mouth once daily in the morning lisinopril-hydroCHLOROthiazide 20-25 MG tablet take 1 tablet by mouth every morning 90 tablet 1 10/04/2023 Suspended Start: 04-13-2022 [facility] in the morning lisinopril-hydroCHLOROthiazide 20-25 MG tablet Take 1 tablet by mouth every morning. 0 04/13/2022 Active Start: 09-19-2021 take 1 tablet by mouth once da nicholas Lisinopril- Hydrochlorothiazide Active 1 TABLET PO DAILY September 19, 2021 12:00am Start: 04-02-2021 take 1 tablet by mouth once da nicholas lisinopril- hydroCHLOROthiazide (PRINZIDE;ZESTORETIC) 20-25 MG per tablet TAKE 1 TABLET BY MOUTH DAILY 90 tablet 1 04/02/2021 Active Start: 10-21-2020 take 1 tablet by mouth once da nicholas lisinopril- hydroCHLOROthiazide (PRINZIDE;ZESTORETIC) 20-25 MG per tablet TAKE 1 TABLET BY MOUTH DAILY 90 tablet 1 10/21/2020 Suspended Start: 04-24-2019 take 1 tablet by mouth once da nicholas lisinopril- hydrochlorothiazide (PRINZIDE;ZESTORETIC) 20-25 MG per tablet TAKE 1 TABLET BY MOUTH DAILY 90 tablet 1 04/24/2019 Active Start: 12-02-2018 take 1 tablet by mouth once da nicholas lisinopril- hydrochlorothiazide (PRINZIDE;ZESTORETIC) 20-25 MG per tablet TAKE 1 TABLET BY MOUTH DAILY 90 tablet 1 12/02/2018 Active 1 ml HYDROmorphone hydrochloride 1 mg/ml cartridge (4 sources) Opioid Agonist Start: 04-17-2019 HYDROmorphone (DILAUDID) injection 1 mg Start: 04-17-2019 HYDROmorphone (DILAUDID) injection 0.5 mg Start: 04-17-2019 HYDROmorphone (DILAUDID) injection 0.25 mg isopropyl alcohol 0.7 ml/ml medicated pad (3 sources) Start: 07-28-2022 End: 08-27-2022 Alcohol Swabs (Alcohol Pads) 70 % pads Indications: Type 2 diabetes mellitus without complication, without long-term current use of insulin ([facility] ([facility]) 1 each 2 times daily as needed (twice daily glucose). As directed daily and as needed. 100 each 07/28/2022 08/27/2022 Active 4 ml labetalol hydrochloride 5 mg/ml cartridge (2 sources) beta-Adrenergic Tamica Start: 04-17-2019 labetalol (NORMODYNE;TRANDATE) injection 5 mg Start: 04-03-2019 labetalol (NOR MODYNE;TRANDATE) injection 5 mg 1 ml meperidine hydrochloride 50 mg/ml injection (1 source) Opioid Agonist Start: 04-17-2019 meperidine (DEMEROL) injection 12.5 mg montelukast 10 mg oral tablet (4 sources) Leukotriene Receptor Antagonist Start: 12-07-2019 take 1 tablet by mouth once daily montelukast (SINGULAIR) 10 MG tablet Take 1 tablet by mouth nightly 90 tablet 1 12/07/2019 Active Start: 04-12-2019 take 1 tablet by jose j th once daily montelukast (SINGULAIR) 10 MG tablet Take 1 tablet by mouth nightly 90 tablet 0 04/12/2019 Active Start: 12-09-2018 take 1 tablet by jose j th once daily montelukast (SINGULAIR) 10 MG tablet Take 1 tablet by mouth nightly 90 tablet 0 12/09/2018 Active moxifloxacin 5 mg/ml ophthalmic solution (2 sources) Quinolone Antimicrobial Start: 04-17-2019 moxifloxacin (VIGAMOX) 0.5 % ophthalmic solution 1 drop Start: 04-03-2019 moxifloxacin ( VIGAMOX) 0.5 % ophthalmic solution 1 drop naproxen sodium 220 mg oral tablet (20 sources) Nonsteroidal Anti-inflammatory Drug Start: 09-19-2021 naproxen sodium (Aleve) 220 MG tablet TWICE A DAY 0 09/19/2021 Active nepafenac 1 mg/ml ophthalmic suspension (2 sources) Nonsteroidal Anti-inflammatory Drug Start: 04-17-2019 nepafenac (NEVANA C) 0.1 % ophthalmic suspension 1 drop Start: 04-03-2019 nepafenac (NEV ANAC) 0.1 % ophthalmic suspension 1 drop Corder 9-Nun-Aag-Fish Oil (Fish Oil) 1,200 (144-216) mg Capsule (6 sources) Start: 09-19-2021 take 1 capsule by mouth once daily Corder 9-Syq-Qja-Fish Oil (Fish Oil) 1,200 (144-216) mg Capsule Active 1200 CAP PO DAILY September 19, 2021 3:07pm Start: 09-19-2021 take 1 capsule by mo uth once daily Corder 1-Vfq-Fqs-Fish Oil (Fish Oil) 1,200 (144-216) mg Capsule Active 1200 CAP PO DAILY September 18, 2021 11:00pm Start: 09-19-2021 take 1 capsule by mo uth once daily Corder 8-Vrb-Kiq-Fish Oil (Fish Oil) 1,200 (144-216) mg Capsule Active 1200 CAP PO DAILY September 19, 2021 12:00am 2 ml ondansetron 2 mg/ml injection (2 sources) Serotonin-3 Receptor Antagonist Start: 04-17-2019 End: 04-17-2019 ondansetron (ZOFRAN) injection 4 mg Start: 04-03-2019 End: 04-03-2019 ondansetron (ZOFRAN) injecti on 4 mg oxyCODONE (1 source) Opioid Agonist Start: 04-17-2019 End: 04-17-2019 oxyCODONE (ROXICODONE) immed iate release tablet 5 mg Oxygen (20 sources) oxygen (O2) gas Inhale 3 L/min continuous. via nasal canula 2 liters daytime and 4 liters at night Active oxygen (O2) gas Inhale 3 L/min continuous. via nasal canula 2 liters daytime and 4 liters at night 0 Suspended oxygen (O2) gas Inhale 3 L/min continuous. via nasal canula 2 liters daytime and 4 liters at night 0 Active oxygen (O2) gas Inhale 2 L/min continuous. via nasal canula 2 liters daytime and 4 liters at night 0 Active phenylephrine hydrochloride 25 mg/ml ophthalmic solution (4 sources) alpha-1 Adrenergic Agonist Start: 12-30-2020 phenylephrine (MYDFRIN) 2.5 % ophthalmic solution 1 drop Start: 11-25-2020 phenylephrine (MYDFRIN) 2.5 % ophthalmic solution 1 drop Start: 04-17-2019 phenylephrine (MYDFRIN) 2.5 % ophthalmic solution 1 drop Start: 04-03-2019 phenylephrine (MYDFRIN) 2.5 % ophthalmic solution 1 drop prednisoLONE acetate 10 mg/ml ophthalmic suspension (4 sources) Corticosteroid Start: 12-30-2020 prednisoLONE a cetate (PRED FORTE) 1 % ophthalmic suspension 1 drop Start: 11-25-2020 prednisoLONE a cetate (PRED FORTE) 1 % ophthalmic suspension 1 drop Start: 04-17-2019 prednisoLONE a cetate (PRED FORTE) 1 % ophthalmic suspension 1 drop Start: 04-03-2019 prednisoLONE a cetate (PRED FORTE) 1 % ophthalmic suspension 1 drop predniSONE 10 mg oral tablet (20 sources) Start: 02-14-2025 predniSONE (De ltasone) 10 MG tablet 4 TABS DAILY FOR 4 DAYS, 3 TABS FOR 4 DAYS, 2 TABS FOR 4 DAYS, 1 TAB FOR 4 DAYS 02/14/2025 Active Start: 11-11-2023 End: 11-20-2023 take 2 tablets by mouth once daily, then take 1 tablet by mouth once daily predniSONE (Deltasone) 10 MG tablet Take 2 tablets (20 mg) by mouth daily for 1 day, THEN 1 tablet (10 mg) daily for 3 days. 5 tablet 0 11/11/2023 11/20/2023 Active Start: 2023 End: 10-15-2023 predniSONE (Deltasone) 20 MG tablet Indications: COPD with acute exacerbation (HCC) Take 3 tabs (60mg) daily for 3 days, then take 2 tabs (40mg) daily for 3 days, then take 1 tab (20mg) daily for 3 days. 18 tablet 0 2023 10/15/2023 Discontinued (Therapy completed) Start: 08-16-2023 End: 08-25-2023 predniSONE (Deltasone) 20 MG tablet Indications: COPD with acute exacerbation (HCC) Take 3 tabs (60mg) daily for 3 days, then take 2 tabs (40mg) daily for 3 days, then take 1 tab (20mg) daily for 3 days. 18 tablet 0 08/16/2023 08/25/2023 Active Start: 01-22-2023 End: 08-16-2023 predniSONE (Deltasone) 10 MG tablet Take 10 mg by mouth. 0 01/22/2023 08/16/2023 Discontinued Start: 01-22-2023 Prednisone Act rosa 10 MG PO DAILY January 22, 2023 12:00am Take 4 tablets for 3 days then 3 tablets for 3 days then 2 tablets for 3 days then 1 tablet for 3 days then half tablet for 4 days 1 ml promethazine hydrochloride 25 mg/ml injection (2 sources) Phenothiazine Start: 04-17-2019 End: 04-17-2019 promethazine (PHENERGAN) injection 6.25 mg Start: 04-03-2019 End: 04-03-2019 promethazine (PHENERGAN) inj ection 6.25 mg Respiratory Therapy Supplies (NEBULIZER/TUBING/MOUTHPIECE) KIT (6 sources) Start: 05-13-2018 Respiratory Therapy Supplies (NEBULIZER/TUBING/MOUTHPIECE) KIT 1 kit by Does not apply route daily as needed (sob) 1 kit 0 05/13/2018 Suspended Start: 05-13-2018 Respiratory Th erapy Supplies (NEBULIZER/TUBING/MOUTHPIECE) KIT 1 kit by Does not apply route daily as needed (sob) 1 kit 0 05/13/2018 Active roflumilast 0.5 mg oral tablet (20 sources) Phosphodiesterase 4 Inhibitor Start: 06-26-2023 take 1 tablet by mouth once daily Roflumilast (Daliresp) 500 MCG tablet Take 500 mcg by mouth daily. 06/26/2023 Active Start: 09-18-2020 take 1 tablet by jose j th once daily DALIRESP 500 MCG tablet take 1 tablet by mouth once daily 90 tablet 1 09/18/2020 Suspended Start: 02-20-2019 take 1 tablet by jose j th once daily DALIRESP 500 MCG tablet take 1 tablet by mouth once daily 90 tablet 1 02/20/2019 Active sennosides, longterm 8.6 mg oral tablet (8 sources) Start: 11-01-2023 End: 01-09-2024 take 1 tablet by mouth once daily sennosides (Senokot) 8.6 MG tablet Take 1 tablet (8.6 mg) by mouth nightly. 30 tablet 1 11/10/2023 01/09/2024 Active sertraline 100 mg oral tablet (20 sources) Serotonin Reuptake Inhibitor Start: 01-07-2024 End: 10-31-2024 take 1 tablet by mouth once daily sertraline (Zoloft) 100 MG tablet TAKE 1 TABLET BY MOUTH DAILY 90 tablet 1 10/31/2024 Active Start: 07-23-2023 End: 11-10-2023 take 1 tablet by mouth once daily sertraline (Zoloft) 100 MG tablet take 1 tablet by mouth once daily 90 tablet 10/19/2023 Active Start: 05-11-2022 End: 07-23-2023 take 1 tablet by mouth once daily sertraline (Zoloft) 50 MG tablet take 1 tablet by mouth once daily 90 tablet 0 07/19/2023 07/23/2023 Discontinued (Reorder) simethicone 80 mg chewable tablet (20 sources) Start: 09-19-2021 End: 08-16-2023 simethicone (Mylicon) 80 MG chewable tablet AT BEDTIME 0 09/19/2021 Active Spacer/Aero-Holding Chambers ADA (4 sources) Start: 02-19-2017 Spacer/Aero-Ho lding Chambers ADA Use as directed 1 Device 0 02/19/2017 Active tetracaine hydrochloride 5 mg/ml ophthalmic solution (2 sources) Pooja Local Anesthetic Start: 12-30-2020 tetracaine (TETRAVISC) 0.5 % ophthalmic solution 1 drop Start: 11-25-2020 tetracaine (TE TRAVISC) 0.5 % ophthalmic solution 1 drop tropicamide 10 mg/ml ophthalmic solution (4 sources) Anticholinergic Start: 12-30-2020 tropicamide (M YDRIACYL) 1 % ophthalmic solution 1 drop Start: 11-25-2020 tropicamide (M YDRIACYL) 1 % ophthalmic solution 1 drop Start: 04-17-2019 tropicamide (M YDRIACYL) 1 % ophthalmic solution 1 drop Start: 04-03-2019 tropicamide (M YDRIACYL) 1 % ophthalmic solution 1 drop (2 sources) Start: 09-19-2021 (2 sources) Start: 07-28-2022 (2 sources) Start: 07-28-2022 Completed/Discontinued Medications Medication Drug Class(es) Dates Sig (Normalized) Sig (Original) acetaminophen 500 mg oral tablet (2 sources) Start: 11-02-2023 End: 11-10-2023 take 1000 mg by mouth every eight hours as needed for pain 1,000 mg, Oral, Every 8 hours PRN, mild pain (1-3), Starting on Wed11/02/23 at 1545, Maximum dose of acetaminophen is 4000 mg from all sources in 24 hours. albuterol 0.833 mg/ml / ipratropium bromide 0.167 mg/ml inhalation solution (20 sources) Anticholinergic, beta2-Adrenergic Agonist Start: 10-31-2023 End: 11-03-2023 3 mL, Nebulization, Every 4 hours RT, First dose on Wed10/31/23 at 1930 Start: 10-31-2023 9 mL, Nebuliza tion, Once, On 10/31/23 at 1635, For 1 dose Start: 04-26-2023 Starting on Finley n 10/31/23 at 1622, For 1 dose, Jennifer Cyr: fletcher villanueva Start: 03-01-2023 End: 11-10-2023 take 1 dose by inhalation four times daily for wheezing ipratropium-albuterol (Duo-Neb) 0.5-2.5 mg/3 mL nebulizer solution INHALE 1 VIAL BY NEBULIZATION four times a day if needed for wheezing 180 mL 1 04/26/2023 Active Start: 02-02-2023 ipratropium-al buterol (Duo-Neb) 0.5-2.5 mg/3 mL nebulizer solution Take 3 mL by nebulization 4 times daily as needed for wheezing or shortness of breath. 180 mL 1 02/02/2023 Active Start: 01-21-2023 End: 01-21-2023 ipratropium-albuterol (Duo-N eb) 0.5-2.5 mg/3 mL nebulizer solution 3 mL Start: 03-18-2022 End: 02-02-2023 take 1 dose by inhalation every six hours ipratropium-albuterol (Duo-Neb) 0.5-2.5 mg/3 mL nebulizer solution inhale contents of 1 vial in nebulizer every 6 hours 0 03/18/2022 02/02/2023 Discontinued (Reorder) aspirin 325 mg oral tablet (6 sources) Platelet Aggregation Inhibitor, Nonsteroidal Anti-inflammatory Drug Start: 09-19-2021 End: 01-21-2023 take 325 mg by mouth once daily Aspirin Discontinued 325 MG PO DAILY September 19, 2021 12:00am January 21, 2023 10:41am baclofen 5 mg oral tablet (20 sources) gamma-Aminobutyric Acid-ergic Agonist Start: 02-02-2023 End: 11-10-2023 Start: 03-27-2019 take 1 tablet by jose j three times daily baclofen (LIORESAL) 10 MG tablet take 1 tablet by mouth three times a day if needed 30 tablet 0 03/27/2019 Active bisacodyl 5 mg delayed release oral tablet (2 sources) Stimulant Laxative Start: 11-01-2023 End: 11-10-2023 take 5 mg by mouth every twenty-four hours as needed for constipation 5 mg, Oral, Daily PRN, constipation, Starting on Wed11/01/23 at 1849, Do not give within 1 hour of antacids, milk, or dairy products. Do not crush, chew, or split. budesonide 0.25 mg/ml inhalation suspension (20 sources) Corticosteroid Start: 03-07-2024 End: 02-21-2025 budesonide (Pulmicort) 0.5 MG/2ML nebulizer solution 03/07/2024 02/21/2025 Discontinued (Therapy completed) Start: 11-05-2023 End: 11-10-2023 take 0.5 mg by mouth twice daily 0.5 mg, Nebulization, 2 times daily, First dose on Wed11/05/23 at 0830, Rinse mouth with water after use to reduce aftertaste and incidence of candidiasis. Do not swallow. calcium carbonate 600 mg / cholecalciferol 0.01 mg oral tablet (20 sources) Vitamin D Start: 09-19-2021 End: 08-08-2024 Calcium Carb-Cholecalciferol 600-400 MG-UNIT tablet 09/19/2021 08/08/2024 Discontinued (Therapy completed) Start: 09-19-2021 Start: 09-19-2021 Calcium Carbon ate-Vitamin D3 (Calcium 600 + D(3)) 600 mg-10 mcg (400 unit) Tablet Active 1 TABLET PO September 19, 2021 12:00am calcium chloride 0.004 meq/m l / magnesium chloride 0.003 meq/ml / potassium chloride 0.01 meq/ml / sodium acetate 0.0475 meq/ml / sodium chloride 0.109 meq/ml / sodium citrate 0.012 meq/ml ophthalmic solution (2 sources) Start: 12-30-2020 End: 12-30-2020 balanced salts plus (BSS) ophthalmic solution Start: 11-25-2020 End: 11-25-2020 balanced salts plus (BSS) op hthalmic solution 12 hr cetirizine hydrochloride 5 mg / pseudoephedrine hydrochloride 120 mg extended release oral tablet (20 sources) alpha-Adrenergic Agonist, Histamine-1 Receptor Antagonist Start: 01-10-2024 End: 05-03-2024 take 5-120 mg by mouth every twelve hours cetirizine-pseudoephedrine (ZyrTEC-D Allergy & Sinus) 5-120 MG 12 hr tablet Take 1 tablet by mouth 2 times daily. 60 tablet 2 01/21/2024 05/03/2024 Discontinued (Therapy completed) Start: 02-02-2023 take 5-120 mg by jose j th every twelve hours cetirizine-pseudoephedrine (ZyrTEC-D Allergy & Sinus) 5-120 MG 12 hr tablet Take 1 tablet by mouth 2 times daily. 60 tablet 2 02/02/2023 Active Start: 02-02-2023 Collagen (15 sources) End: 02-02-2023 COLLAGEN PO Take by mouth. 0 02/02/2023 Discontinued (Med list cleanup) COLLAGEN PO Take by mouth. 0 Active doxycycline hyclate 100 mg oral tablet (5 sources) Tetracycline-class Drug Start: 02-14-2025 End: 02-21-2025 take 1 tablet by mouth twice daily doxycycline (Vibra-Tabs) 100 MG tablet Take 100 mg by mouth 2 times daily. 02/14/2025 02/21/2025 Start: 04-12-2024 End: 04-22-2024 take 1 tablet by mouth twice daily doxycycline (Vibra-Tabs) 100 MG tablet Take 1 tablet (100 mg) by mouth 2 times daily for 10 days. Take with a full glass of water and do not lie down for at least 30 minutes after. 20 tablet 04/12/2024 04/22/2024 Active 0.4 ml enoxaparin sodium 100 mg/ml prefilled syringe (2 sources) Low Molecular Weight Heparin Start: 10-31-2023 End: 11-10-2023 inject 40 mg by subcutaneous injection every twenty-four hours 40 mg, SubCUTAneous, Every 24 hours scheduled (Daily), First dose on Wed10/31/23 at 1930, Indication of Use: Prophylaxis-DVT/PE, Indications: Prophylaxis of Venous Thromboembolism 1 ml EPINEPHrine 1 mg/ml injection (2 sources) alpha-Adrenergic Agonist, beta-Adrenergic Agonist, Catecholamine Start: 10-31-2023 End: 10-31-2023 inject 0.3 mg by intramuscular injection once 0.3 mg, IntraMUSCular, Once, On Wed10/31/23 at 1635, For 1 dose, In crash carts in ALL locations OR Pyxis in the Emergency Department/Procedural areas. Start: 10-31-2023 End: 10-31-2023 inject 0.3 mg by intramuscular injection once 0.3 mg, IntraMUSCular, Once, On Wed10/31/23 at 1635, For 1 dose, In crash carts in ALL locations OR Pyxis in the Emergency Department/Procedural areas. furosemide 40 mg oral tablet (15 sources) Loop Diuretic End: 02-21-2025 take 1 tablet by mouth once daily furosemide (Lasix) 40 MG tablet Take 40 mg by mouth daily. 02/21/2025 Discontinued guaiFENesin 20 mg/ml oral solution (20 sources) Start: 11-02-2023 End: 11-09-2023 take 200 mg by mouth every four hours as needed for cough 200 mg, Oral, Every 4 hours PRN, cough, Starting on Wed11/02/23 at 0840 Start: 02-19-2022 End: 05-03-2024 take 1 tablet by mouth twice daily Mucus Relief ER 600 MG 12 hr tablet Take 1 tablet (600 mg) by mouth 2 times daily. Do not crush, chew, or split. 60 tablet 1 10/15/2023 05/03/2024 Discontinued (Therapy completed) hydroCHLOROthiazide 25 mg / triamterene 37.5 mg oral tablet (10 sources) Potassium-sparing Diuretic, Thiazide Diuretic Start: 10-15-2023 End: 11-10-2023 Start: 10-15-2023 take 1 tablet by jose j th every twenty-four hours as needed triamterene-hydrochlorothiazide (Maxzide-25) 37.5-25 MG tablet Take 1 tablet by mouth Daily as needed (swelling). 30 tablet 0 10/15/2023 Suspended hydrOXYzine hydrochloride 25 mg oral tablet (2 sources) Antihistamine Start: 02-17-2024 End: 03-18-2024 take 1 tablet by mouth once daily as needed for sleep hydrOXYzine HCl (Atarax) 25 MG tablet Indications: Difficulty sleeping Take 1 tablet (25 mg) by mouth Nightly as needed (sleep). 30 tablet 02/17/2024 03/09/2024 Discontinued (Therapy completed) 10 ml lidocaine hydrochloride 20 mg/ml injection (16 sources) Antiarrhythmic, Amide Local Anesthetic Start: 08-10-2024 End: 08-10-2024 lidocaine (Xylocaine) 2 % injection 2 mL Start: 08-10-2024 End: 08-10-2024 2 mL, Injection, Once, On Th u 08/10/24 at 1145, For 1 dose Start: 03-17-2024 End: 03-17-2024 lidocaine (Xylocaine) 2 % injection 2 mL Start: 03-17-2024 End: 03-17-2024 2 mL, Injection, Once, On Fr i 03/17/24 at 1100, For 1 dose Start: 11-09-2023 End: 01-21-2024 apply 1 dose transdermal route once daily Lidocaine 4 % patch Place 1 patch on the skin daily. 30 patch 1 11/11/2023 01/21/2024 Discontinued (Therapy completed) Start: 04-17-2019 End: 04-17-2019 lidocaine PF 1 % injection 1 mL Start: 04-03-2019 End: 04-03-2019 lidocaine PF 1 % injection 1 mL lisinopril 20 mg oral tablet (7 sources) Angiotensin Converting Enzyme Inhibitor Start: 11-08-2023 End: 01-10-2024 take 1 tablet by mouth once daily lisinopril 20 MG tablet Take 1 tablet (20 mg) by mouth daily. 30 tablet 1 11/11/2023 11/19/2023 Discontinued (Alternate therapy) Start: 11-06-2023 End: 11-07-2023 take 10 mg by mouth once daily 10 mg, Oral, Daily, Fir st dose on 11/06/23 at 1200 50 ml magnesium sulfate 40 mg/ml injection (4 sources) Start: 10-31-2023 End: 10-31-2023 2,000 mg, IntraVENous, at 12 .5 mL/hr, Administer over 240 Minutes, Once, On 10/31/23 at 1635, For 1 dose, Recommended infusion rate not to exceed 1,000 mg (milligrams) per hour. Start: 10-31-2023 End: 10-31-2023 Starting on 10/31/23 at 1 629, For 1 dose, Sally Degroot: toreyinet override melatonin 5 mg oral tablet (2 sources) Start: 10-31-2023 End: 11-10-2023 take 5 mg by mouth once daily 5 mg, Oral, Nightly, First dose on 10/31/23 at 2100 meloxicam 15 mg oral tablet (14 sources) Nonsteroidal Anti-inflammatory Drug Start: 01-21-2024 End: 06-21-2024 take 1 tablet by mouth once daily meloxicam (Mobic) 15 MG tablet TAKE 1 TABLET BY MOUTH EVERY DAY 30 tablet 2 02/18/2024 06/21/2024 Discontinued (Therapy completed) 1 ml methylPREDNISolone acetate 40 mg/ml injection (20 sources) Corticosteroid Start: 08-10-2024 End: 08-10-2024 methylPREDNISolone acetate (DEPO-Medrol) injection 40 mg Start: 08-10-2024 End: 08-10-2024 40 mg, Intra-artICUlar, Once , On Renetta 08/10/24 at 1145, For 1 dose Start: 04-12-2024 End: 06-21-2024 methylPREDNISolone (Medrol D ospak) 4 MG tablets Take as directed on package. 21 tablet 04/12/2024 06/21/2024 Discontinued (Therapy completed) Start: 03-17-2024 End: 03-17-2024 methylPREDNISolone acetate (DEPO-Medrol) injection 40 mg Start: 03-17-2024 End: 03-17-2024 40 mg, Intra-artICUlar, Once , On Wed03/17/24 at 1100, For 1 dose Start: 11-25-2023 End: 01-21-2024 methylPREDNISolone (Medrol D ospak) 4 MG tablets Take as directed on package. 21 tablet 11/25/2023 01/21/2024 Discontinued (Therapy completed) Start: 11-03-2023 End: 11-04-2023 take 40 mg intravenously every twelve hours 40 mg, IntraVENous, Every 12 hours, First dose (after last modification) on Wed11/03/23 at 2100 Start: 11-01-2023 End: 11-03-2023 take 40 mg intravenously every six hours 40 mg, IntraVENous, Every 6 hours, First dose (after last modification) on Wed11/01/23 at 1430 Start: 10-31-2023 End: 10-31-2023 125 mg, IntraVENous, Once, O n 10/31/23 at 1635, For 1 dose Start: 10-31-2023 End: 10-31-2023 125 mg, IntraVENous, Once, O n 10/31/23 at 1635, For 1 dose Start: 10-31-2023 End: 10-31-2023 Starting on 10/31/23 at 1 628, For 1 dose, Sally Degroot: cabinet override Start: 10-31-2023 End: 11-01-2023 take 40 mg intravenously every twelve hours 40 mg, IntraVENous, Every 12 hours, First dose on Wed11/01/23 at 0500 pantoprazole 40 mg delayed release oral tablet (11 sources) Proton Pump Inhibitor Start: 11-10-2023 End: 03-09-2024 take 1 tablet by mouth once daily pantoprazole (ProtoNix) 40 MG EC tablet Take 1 tablet (40 mg) by mouth nightly. Do not crush, chew, or split. 30 tablet 1 11/10/2023 03/09/2024 Discontinued (Therapy completed) sodium chloride 30 mg/ml inhalation solution (6 sources) Start: 11-07-2023 End: 11-10-2023 4 mL, Nebulization, 2 times daily, First dose on Wed11/07/23 at 1300 Start: 11-01-2023 End: 11-10-2023 1 spray, Each Nostril, PRN, congestion, Starting on Wed11/01/23 at 1749 Start: 04-17-2019 sodium chlorid e flush 0.9 % injection 10 mL Start: 04-17-2019 sodium chlorid e flush 0.9 % injection 10 mL vitamin b6 100 mg oral tablet (6 sources) Start: 09-19-2021 End: 01-21-2023 take 1 tablet by mouth once daily Pyridoxine (Vitamin B6) (Vitamin B-6) 100 mg Tablet Discontinued 100 MG PO DAILY September 19, 2021 12:00am January 21, 2023 10:41am (12 sources) Start: 11-09-2023 End: 11-10-2023 [Order 1 Start] Name: predniSONE (Deltasone) tablet 20 mg Signed Summary: 20 mg, Oral, Daily, First dose on Wed11/09/23 at 0900, For 3 days [Order 1 End] [Order 2 Start] Name: predniSONE (Deltasone) tablet 10 mg Signed Summary: 10 mg, Oral, Daily, First dose on Wed11/12/23 at 0900, For 3 days [Order 2 End] Start: 11-04-2023 End: 11-08-2023 take 30 mg by mouth once daily 30 mg, Oral, Daily, Fir st dose on Renetta 11/04/23 at 1415, For 5 doses Start: 11-01-2023 End: 11-10-2023 [Order 1 Start] Name: pantop razole (ProtoNix) EC tablet 40 mg Signed Summary: 40 mg, Oral, Nightly, First dose on Wed11/01/23 at 2100, Do not crush, chew, or split. [Order 1 End] [Order 2 Start] Name: pantoprazole (ProtoNix) 40 mg in sodium chloride (PF) 0.9 % 10 mL injection Signed Summary: 40 mg, IntraVENous, Administer over 2 Minutes, Nightly, First dose on Wed11/01/23 at 2100, Give only if unable to tolerate po. [Order 2 End] Start: 10-31-2023 End: 11-01-2023 500 mg, IntraVENous, Adminis ter over 60 Minutes, Every 24 hours, First dose on Wed10/31/23 at 2100, ADD-[place] bag, Suspected Indication (Select all that apply): Pneumonia (CAP) Start: 10-31-2023 End: 11-08-2023 1,000 mg, IntraVENous, at 10 0 mL/hr, Administer over 30 Minutes, Every 24 hours, First dose on Wed10/31/23 at 2000, Mini-Bag Plus bag, Suspected Indication (Select all that apply): Pneumonia (CAP) Start: 10-31-2023 End: 11-10-2023 take 4 mg by mouth every eight hours as needed for nausea and vomiting [Order 1 Start] Name: ondansetron ODT (Zofran-ODT) disintegrating tablet 4 mg Signed Summary: 4 mg, Oral, Every 8 hours PRN, nausea, vomiting, Starting on Wed10/31/23 at 1922, 1st Line. If inadequate response within 60 minutes, proceed to next-line agent or contact provider if no further options ordered. Patient should allow tablet to dissolve on tongue. Do not remove from blister pack until just before administering. [Order 1 End] [Order 2 Start] Name: ondansetron (Zofran) injection 4 mg Signed Summary: 4 mg, IntraVENous, Every 6 hours PRN, nausea, vomiting, Starting on Wed10/31/23 at 1922, 1st Line. Give IV if patient is unable to take orally. If inadequate response within 60 minutes, proceed to next-line agent or contact provider if no further options ordered. [Order 2 End] Problems Active Problems Problem Classification Problem Date Documented Date Episodic/Chronic Anxiety disorders (20 sources) Anxiety; Translations: [Anxiety disorder, unspecified] Onset: 10-31-2019 10-31-2019 Chronic Cataract (20 sources) Combined form of senile cataract; Translations: [Right after-cataract not obscuring vision] Onset: 03-30-2019 Resolved: 11-25-2020 04-03-2019 Chronic Chronic obstructive pulmonary disease and bronchiectasis (20 sources) Pulmonary emphysema; Translations: [Acute exacerbation of chronic obstructive airways disease] Onset: 06-28-2015 Resolved: 05-03-2024 10-11-2018 Chronic Chronic obstructive pulmonary disease and bronchiectasis (20 sources) Chronic obstructive pulmonary disease and bronchiectasis Onset: 01-18-2024 01-18-2024 Diabetes mellitus without complication (20 sources) Type 2 diabetes mellitus without complication; Translations: [Type 2 diabetes mellitus without complications] Onset: 07-28-2022 07-28-2022 Chronic Disorders of lipid metabolism (20 sources) Hypertriglyceridemia; Translations: [Pure hyperglyceridemia] Onset: 12-20-2020 12-20-2020 Chronic Essential hypertension (20 sources) Hypertensive disorder; Translations: [Essential (primary) hypertension] Onset: 02-22-2017 02-22-2017 Chronic Mood disorders (20 sources) Recurrent major depressive episodes; Translations: [Major depressive disorder, recurrent, unspecified] Onset: 04-20-2022 04-20-2022 Chronic Neoplasms of unspecified nature or uncertain behavior (13 sources) Polycythemia vera (clinical); Translations: [Polycythemia vera] Onset: 08-08-2024 08-08-2024 Chronic Osteoarthritis (20 sources) Degenerative joint disease involving multiple joints; Translations: [Polyosteoarthritis, unspecified] Onset: 01-21-2024 01-21-2024 Chronic Other liver diseases (20 sources) Liver cyst; Translations: [Other specified diseases of liver] Onset: 05-25-2022 05-25-2022 Chronic Other nervous system disorders (2 sources) Other chronic pain; Translations: [Other chronic pain] Onset: 03-09-2024 Chronic Other screening for suspected conditions (not mental disorders or infectious disease) (4 sources) Patient encounter status; Translations: [Encounter for screening mammogram for malignant neoplasm of breast] 07-23-2023 Episodic Pleurisy; pneumothorax; pulmonary collapse (1 source) Atelectasis; Translations: [Atelectasis] Onset: 02-20-2025 Episodic Residual codes; unclassified (2 sources) Tobacco user; Translations: [Tobacco abuse] Onset: 06-28-2015 06-28-2015 Chronic Residual codes; unclassified (1 source) Difficulty sleeping ; Translations: [Sleep disorder, unspecified] 02-17-2024 Episodic Residual codes; unclassified (1 source) Influenza vaccination declined; Translations: [Immunization not carried out because of patient refusal] 03-09-2024 Episodic Residual codes; unclassified (4 sources) Menopause present; Translations: [Asymptomatic menopausal state] 03-17-2024 Episodic Residual codes; unclassified (2 sources) Asymptomatic menopausal state; Translations: [Asymptomatic menopausal state] Onset: 02-21-2025 Episodic Respiratory failure; insufficiency; arrest (adult) (20 sources) Chronic hypoxemic respiratory failure; Translations: [Chronic respiratory failure with hypoxia] Onset: 05-11-2022 05-11-2022 Chronic Unclassified (18 sources) Inability to perform ADLs Onset: 01-18-2024 01-18-2024 Unclassified (18 sources) Hospital admissions Onset: 01-18-2024 01-18-2024 Unclassified (18 sources) Medication Adherence Onset: 01-18-2024 01-18-2024 Unclassified (18 sources) Use of tobacco products Onset: 01-18-2024 01-18-2024 Unclassified (18 sources) Patient Stated Goal Onset: 01-18-2024 01-18-2024 Unclassified (2 sources) Chronic pain of left knee 08-10-2024 Unclassified (2 sources) Sinus Problem; Translations: [Sinus Problem] Onset: 05-03-2024 Unclassified (2 sources) Blood Pressure Check; Translations: [Blood Pressure Check] Onset: 04-24-2024 Unclassified (2 sources) Health Maintenance; Translations: [Health Maintenance] Onset: 03-17-2024 Unclassified (2 sources) Other; Translations: [Other] Onset: 03-17-2024 Past or Other Problems Problem Classification Problem Date Documented Date Episodic/Chronic Acute bronchitis (6 sources) Acute bronchitis; Translations: [Acute bronchitis, unspecified] Onset: 02-22-2017 Resolved: 02-13-2019 02-13-2019 Episodic Mood disorders (20 sources) Mood disorders Onset: 07-16-2022 Resolved: 08-08-2024 07-16-2022 Other connective tissue disease (20 sources) Swelling of left foot; Translations: [Other specified soft tissue disorders] Onset: 2023 2023 Episodic Other connective tissue disease (17 sources) Other symptoms and signs involving the musculoskeletal system; Translations: [Other musculoskeletal symptoms referable to limbs] Onset: 06-21-2024 06-21-2024 Episodic Other non-traumatic joint disorders (20 sources) Pain in left knee; Translations: [Pain in joint, lower leg] Onset: 03-09-2024 03-09-2024 Episodic Other non-traumatic joint disorders (2 sources) Joint swelling; Translations: [Joint Swelling] Onset: 05-03-2024 Episodic Other non-traumatic joint disorders (2 sources) Knee pain; Translations: [Knee Pain] Onset: 03-17-2024 Episodic Other skin disorders (20 sources) Nodule of subcutaneous tissue of right forearm; Translations: [Localized swelling, mass and lump, right upper limb] Onset: 11-25-2023 11-25-2023 Episodic Other upper respiratory disease (17 sources) Nasal congestion; Translations: [Nasal congestion] Onset: 05-03-2024 05-03-2024 Episodic Other upper respiratory infections (20 sources) Acute frontal sinusitis; Translations: [Acute frontal sinusitis, unspecified] Onset: 04-12-2024 Resolved: 08-08-2024 04-12-2024 Episodic Residual codes; unclassified (1 source) Tobacco user Onset: 06-28-2015 06-28-2015 Episodic Residual codes; unclassified (20 sources) Dependent edema; Translations: [Edema, unspecified] Onset: 10-15-2023 10-15-2023 Episodic Residual codes; unclassified (2 sources) Immunization not carried out because of patient refusal; Translations: [Immunization not carried out because of patient refusal] Onset: 03-09-2024 Episodic Respiratory failure; insufficiency; arrest (adult) (20 sources) Acute respiratory failure; Translations: [Acute respiratory failure with hypoxia] Onset: 02-22-2017 Resolved: 02-13-2019 02-13-2019 Episodic Screening and history of mental health and substance abuse codes (20 sources) Tobacco use and exposure - finding; Translations: [Personal history of nicotine dependence] Onset: 06-28-2015 09-06-2019 Episodic Unclassified (2 sources) Weakness of both lower extremities 06-21-2024 Results Test Name Value Interpretation Reference Range Facility HbA1c (Bld) [Mass fraction]o n 02-21-2025 Interpretation and review of laboratory results Abnormal [facility] - Hematology and Cell countson 02-21-2025 HbA1c (Bld) [Mass fraction] 6.8 % Abnormal - 5.7 % [facility] Office Visiton 02-21-2025 Follow-up visit [id number] BuitragoLuke parker 1960 F Date Provider Department Center 02/21/2025 [id number] UMLLINS [facility] Family History Problem Relation Age of Onset Heart attack Father High Blood Pressure Mother Family Status - Relation Status Age at Father Mother Level of Service:09590 [place] OFFICE/OUTPATIENT ESTABLISHED MOD MDM 30 MIN Reason for Visit and Comments: Chronic Pain [873] COPD [313] Depression [32] Anxiety [9] Diabetes [34] Hypertension [929433] Hyperlipidemia [182] Medication Check [2310120160] - 6 month Health Maintenance [872] - Flu vaccine- refuse 3rd covid vaccine- not done Pcv 20 vaccine- refuse Mammogram- not right now Lung cancer check- getting done with pulmonology Dexa scan- agree Dental exam- sees [facility] dental Rsv vaccine- not done Normal [facility] Progress Noteon 02-21-2025 Progress Note Controlled, A1c toda y is 6.8 continue very strict low-fat carb diet. Normal [facility] Progress Note Controlled, continue lisinopril hydrochlorothiazide 20-25 1 daily Normal [facility] Progress Note Significant, significant hypoxemia recommend going to the emergency room [facility], continue current oxygen and albuterol inhaler and nebulizer solution, DuoNeb solution Zithromax, Trelegy and prednisone [facility] Progress Note 02/21/2025 Kendra Buitrago (: 1960) is a 64 y.o. female , Established patient, here for evaluation of the following chief complaint(s): Chronic Pain, COPD, Depression, Anxiety, Diabetes, Hypertension, Hyperlipidemia, Medication Check (6 month), and Health Maintenance (Flu vaccine- refuse/3rd covid vaccine- not done/Pcv 20 vaccine- refuse/Mammogram- not right now/Lung cancer check- getting done with pulmonology/Dexa scan- agree/Dental exam- sees [facility] dental /Rsv vaccine- not done) ASSESSMENT/PLAN: 1. Chronic obstructive pulmonary disease, unspecified COPD type (HCC) Assessment & Plan: Significant, significant hypoxemia recommend going to the emergency room [facility], continue current oxygen and albuterol inhaler and nebulizer solution, DuoNeb solution Zithromax, Trelegy and prednisone Orders: - albuterol (2.5 MG/3ML) 0.083% nebulizer solution; Take 3 mL (2.5 mg) by nebulization 4 times daily as needed for wheezing or shortness of breath., Starting 02/21/2025, Normal - albuterol 108 (90 Base) MCG/ACT inhaler; INHALE 2 PUFFS BY MOUTH AND INTO THE LUNGS EVERY 4 HOURS IF NEEDED, Normal 2. Chronic hypoxemic respiratory failure (HCC) Assessment & Plan: This is fairly significant she had an initial oxygen of 84, recheck was 82 I do recommend that she go to the emergency room for further evaluation and treatment. 3. Primary hypertension Assessment & Plan: Controlled, continue lisinopril hydrochlorothiazide 20-25 1 daily 4. Type 2 diabetes mellitus without complication, without long-term current use of insulin (HCC) Assessment & Plan: Controlled, A1c today is 6.8 continue very strict low-fat carb diet. Orders: - AMB POC HEMOGLOBIN A1C 5. Menopause - DEXA bone density axial skeleton Follow up in about 3 months (around 05/23/2025). SUBJECTIVE/OBJECTIVE: HPI -Ember comes in today for 3-month follow-up on her diabetes, COPD, she has chronic hypoxia when she has hypertension. She needs an A1c today and her oxygen saturation is significantly low at 84, she is on 5 L of oxygen. She really has no new complaints, see ROS. Review of Systems Constitutional: Negative for chills and fever. HENT: Negative for ear pain, rhinorrhea and sinus pressure. Respiratory: Positive for cough, chest tightness, shortness of breath and wheezing. Cardiovascular: Negative for chest pain and palpitations. Vitals: 02/21/25 1107 02/21/25 1146 BP: 125/64 Pulse: 78 SpO2: (!) 84% (!) 82% Weight: 193 lb 6.4 oz (87.7 kg) Height: 5' 7 (1.702 m) Physical Exam Vitals and nursing note reviewed. Constitutional: General: She is not in acute distress. Appearance: Normal appearance. HENT: Head: Normocephalic and atraumatic. Right Ear: Tympanic membrane, ear canal and external ear normal. Left Ear: Tympanic membrane, ear canal and external ear normal. Mouth/Throat: Mouth: Mucous membranes are moist. Pharynx: Oropharynx is clear. Eyes: Extraocular Movements: Extraocular movements intact. Pupils: Pupils are equal, round, and reactive to light. Cardiovascular: Rate and Rhythm: Normal rate and regular rhythm. Heart sounds: Normal heart sounds. No murmur heard. Pulmonary: Effort: Pulmonary effort is normal. Breath sounds: Normal breath sounds. Musculoskeletal: Cervical back: Neck supple. Lymphadenopathy: Cervical: No cervical adenopathy. Neurological: Mental Status: She is alert. An electronic signature was used to authenticate this note. Vu Mullins MD 02/21/2025 1:03 PM [facility] Progress Note Due to low oxygen level I advised pt to go to the ED- pt declined and states she will call pulmonary office but does also state she is to follow up with pulmonary tomorrow [facility] Progress Note Patient verified by last name and date of . [facility] CBC W/Diff, Automatedon 02-05 Absolute Lymph 1.87 X10 3/uL Normal 0.83-4.51 [facility] Comment on above: Performed By: #### L 500.3400, L501.4020, L500.2500 #### [facility] [address] [place], [address] Absolute Neut 6.5 X10 3/uL Normal 2.0-7.7 [facility] Comment on above: Performed By: #### L 500.3400, L501.4020, L500.2500 #### [facility] [address] [place], [address] Basophils/100 WBC (Bld) 0.6 % Normal 0-1 [facility] Comment on above: Performed By: #### L 500.3400, L501.4020, L500.2500 #### [facility] [address] [place], [address] Eosinophils/100 WBC (Bld) 0.8 % Normal 0-5 [facility] Comment on above: Performed By: #### L 500.3400, L501.4020, L500.2500 #### [facility] [address] [place], [address] Erythrocyte distribution width (RBC) [Ratio] 12.8 % Normal 11.6-14.6 [facility] Comment on above: Performed By: #### L 500.3400, L501.4020, L500.2500 #### [facility] [address] [place], [address] Hematocrit (Bld) [Volume fraction] 41.2 % Normal 37-47 [facility] Comment on above: Performed By: #### L 500.3400, L501.4020, L500.2500 #### [facility] [address] [place], [address] Hemoglobin (Bld) [Mass/Vol] 12.7 g/dL Normal 12.0-15.0 [facility] Comment on above: Performed By: #### L 500.3400, L501.4020, L500.2500 #### [facility] [address] [place], [address] IG% 0.800 Normal 0.0-0.9 [facility] Comment on above: Result Comment: IG% - Immature Granulocytes (promyelocytes, myelocytes and metamyelocytes) > 1% indicates that a LEFT SHIFT is Present. Performed By: #### L 500.3400, L501.4020, L500.2500 #### [facility] [address] [place], [address] Lymphocytes/100 WBC (Bld) 20.2 % Normal 19-41 [facility] Comment on above: Performed By: #### L 500.3400, L501.4020, L500.2500 #### [facility] [address] [place], [address] MCH (RBC) [Entitic mass] 30.8 pg Normal 27.0-32.0 [facility] Comment on above: Performed By: #### L 500.3400, L501.4020, L500.2500 #### [facility] [address] [place], [address] MCHC (RBC) [Mass/Vol] 30.8 g/dL Low 32-36 [facility] Comment on above: Performed By: #### L 500.3400, L501.4020, L500.2500 #### [facility] [address] [place], [address] MCV (RBC) [Entitic vol] 100.0 fL High 81-99 [facility] Comment on above: Performed By: #### L 500.3400, L501.4020, L500.2500 #### [facility] [address] [place], [address] Monocytes/100 WBC (Bld) 7.3 % Normal 0-10 [facility] Comment on above: Performed By: #### L 500.3400, L501.4020, L500.2500 #### [facility] [address] [place], [address] Neutrophils/100 WBC (Bld) 70.3 % High 47-70 [facility] Comment on above: Performed By: #### L 500.3400, L501.4020, L500.2500 #### [facility] [address] [place], [address] Nucleated RBC (Bld) [#/Vol] 0 10*3/uL Normal 0-5 [facility] Comment on above: Performed By: #### L 500.3400, L501.4020, L500.2500 #### [facility] [address] [place], [address] Platelet mean volume (Bld) [Entitic vol] 9.6 fL Normal 6.2-12.0 [facility] Comment on above: Performed By: #### L 500.3400, L501.4020, L500.2500 #### [facility] [address] [place], [address] Platelets (Bld) [#/Vol] 217 10*3/uL Normal 150-450 [facility] Comment on above: Performed By: #### L 500.3400, L501.4020, L500.2500 #### [facility] [address] [place], [address] RBC (Bld) [#/Vol] 4.12 10*6/uL Low 4.2-5.4 [facility] Comment on above: Performed By: #### L 500.3400, L501.4020, L500.2500 #### [facility] [address] [place], [address] RDW SD 47.1 fl High 35.1-43.9 [facility] Comment on above: Performed By: #### L 500.3400, L501.4020, L500.2500 #### [facility] [address] [place], [address] WBC (Bld) [#/Vol] 9.3 10*3/uL Normal 4.4-11.0 [facility] Comment on above: Performed By: #### L 500.3400, L501.4020, L500.2500 #### [facility] [address] [place], [address] Pro- Brain NATRIURETIC PEPTI Nader 02-20-2025 Natriuretic peptide B (Bld) [Mass/Vol] 124 pg/mL Normal <=900 [facility] Comment on above: Result Comment: Hear t Failure Unlikely: < 300 pg/mL Heart Failure Likely < 50 Years: > 450 pg/mL 50-75 Years: > 900 pg/mL >75 Years: > 1800 pg/mL Performed By: #### L 500.3400, L501.4020, L500.2500 #### [facility] [address] [place], [address] 36on 02-15-2025 36 Prescription Request : ALBUTEROL HFA (VENTOLIN) INH Last medication check: 03/09/24 Last physical exam: 08/08/24 Next scheduled appointment: 02/21/25 Last date of refill on this medication 12/07/24 ( qty 18 refill 2) [facility] Chest PA and Lateralon 02-14 Chest PA and Lateral [facility] [address] [place] [address] Chest PA and Lateral MR#: [id number] Acct: [id number] Name: KENDRA BUITRAGO Rep #: [id number] : 1960 F 64 From: Jim Kamara PCP: Dr. Vu Mullins MD Status: REG CLI Study: Chest PA and Lateral Date of Exam: 02/14/25 Exam# [id number] Ordering Dr: Tomi Mackenzie MD PROCEDURE: CHEST PA AND LATERAL 02/14/2025 REASON FOR EXAM: ATELECTASIS TECHNIQUE: Procedure Code: RADCXR Modality: DX Procedure: CHEST PA AND LATERAL COMPARISON: AP chest of 06/07/2024. RAD/Chest PA and Lateral IMPRESSION: Progressive left shoulder degenerative changes. Mild thoracic spine degenerative changes are seen. No acute osseous process is seen. Lungs are moderately hyperinflated with increased interstitial markings, consistent with chronic lung disease. Cannot exclude a mild degree of interstitial pulmonary edema, superimposed, however. No significant atelectasis or pneumonitis is appreciated. No pleural effusion or pneumothorax is seen. The cardiomediastinal silhouette is stable, without evidence of cardiomegaly. Reading Location: [place] [address] CC: Dr. Vu Mullins MD; Dr. Tomi Mackenzie MD [employer]: Signed [address] 01-16-2025 36 Prescription Request : FLUTICASONE PROP 50 MCG SPRAY Last medication check: 01/21/24 Last physical exam: 08/08/24 Next scheduled appointment: 02/21/25 Last date of refill on this medication 03/30/24 ( qty 16 g refill 2) [address] 01-11-2025 36 Prescription Request : : LISINOPRIL-HCTZ 20-25 MG TAB Last medication check: 01/24/24 Last physical exam: 08/08/24 Next scheduled appointment: 02/21/25 Last date of refill on this medication 07/17/24 ( qty 90 refill 1 ) [address] 12-07-2024 36 Reviewed chart. Refi ll appropriate. RX sent. [place] [address] Prescription Request : ALBUTEROL HFA (VENTOLIN) INH Last medication check: 01/21/24 Last physical exam: 08/08/24 Next scheduled appointment: 02/21/25 Last date of refill on this medication 09/22/24 ( qty 18 refill 2) [address] 10-31-2024 36 Prescription Request : SERTRALINE HCL 100 MG TABLET Last medication check: 03/09/24 Last physical exam: 08/08/24 Next scheduled appointment: 02/21/25 Last date of refill on this medication 01/07/24 ( qty 90 refill 1) [address] 09-22-2024 36 Reviewed chart. Refi ll appropriate. RX sent. [place] [address] Prescription Request : ALBUTEROL HFA (VENTOLIN) INH Last medication check: 08/10/24 Last physical exam: 08/08/24 Next scheduled appointment: 02/21/25 Last date of refill on this medication 06/26/24 (qty 18 refill 2) [facility] Progress Noteon 08-16-2024 Progress Note EMR reviewed. The patient had an office appt. with PCP on 08/10/24: ABILIO Fraser comes in today for follow-up on the pain in her left knee she is here for an injection she said the last time she did that about 8 months ago it worked great and she is hoping it will work again. She said the pain is continued to get worse she may have a little swelling at times but nothing significant. Blood pressure is elevated today we will recheck that prior to discharge and she also had a pulse ox it was significantly low at 79 after walking back. Vitals: BP 104/65 Pulse 90 Ht 1.702 m (5' 7) Wt 88.1 kg (194 lb 3.2 oz) SpO2 90% BMI 30.42 kg/m? BSA 2.04 m? CM outreach on 08/16/24: PMH: COPD, HTN, DM2, DEPRESSION, ANXIETY, EDEMA, HIGH TRIGLYCERIDES HTN MEDS: Lisinopril/hydrochloro thiazide 20-25mg daily ?monitoring BP's every other day ?edema COPD MEDS: Trelegy inhaler 1 puff daily ?still using Albuterol inhaler 2 puffs as needed ?still using nebulizer once or twice daily ?monitoring pulse ox ?still using 4L O2 continuously ?wheezing or SOB Another outreach attempted. CM has made multiple attempts recently to contact the patient without any success. CM will discharge the patient from the [facility] pet care associate mgmt. program at this time. [facility] 36on 08-10-2024 36 Spoke to patient, no questions. [facility] Office Visiton 08-10-2024 Follow-up visit [id number] Luke Buitrago 1960 F Date Provider Department Center 08/10/2024 [id number] Family History Problem Relation Age of Onset Heart attack Father High Blood Pressure Mother Family Status - Relation Status Age at Father Mother Level of Service:89264 [place] OFFICE/OUTPATIENT ESTABLISHED SF MDM 10 MIN Reason for Visit and Comments: Knee Pain [808223] - Left knee- asking for cortisone inj [facility] Progress Noteon 08-10-2024 Progress Note Blood pressure was initially elevated, recheck was normal continue lisinopril hydrochlorothiazide 20-25 [facility] Progress Note Stable, chronic hypoxic continue current inhalers [facility] Progress Note Pulse ox was initial ly 79% after walking back to the room however after sitting and being away from the perfumes in the waiting room it went up to 90. [facility] Progress Note Patient verified by last name and date of . [facility] Progress Note 08/10/2024 Kendra Buitrago (: 1960) is a 63 y.o. female , Established patient, here for evaluation of the following chief complaint(s): Knee Pain (Left knee- asking for cortisone inj) ASSESSMENT/PLAN: 1. Chronic pain of left knee Assessment & Plan: Injection procedure: Location left knee Consent: Verbal Consent Obtained-Discussed risks including hypo/hyperpigmentation , fat atrophy, steroid flare, bleeding and infection and potential consequences of over use of steroids. Prep: Betadine. Anesthesia: 2% lidocaine. Medication: 1 ml depomedrol 40 mg. Needle: 25 gauge 1.5 in. needle. Complications: No Complications, Hemostasis achieved. Orders: - Large Joint Injection/Arthrocentes is - methylPREDNISolone acetate (DEPO-Medrol) injection 40 mg; 40 mg, Intra-artICUlar, Once, On Renetta 08/10/24 at 1145, For 1 dose - lidocaine (Xylocaine) 2 % injection 2 mL; 2 mL, Injection, Once, On Renetta 08/10/24 at 1145, For 1 dose 2. Chronic obstructive pulmonary disease, unspecified COPD type (HCC) Assessment & Plan: Stable, chronic hypoxic continue current inhalers 3. Chronic hypoxemic respiratory failure (HCC) Assessment & Plan: Pulse ox was initially 79% after walking back to the room however after sitting and being away from the perfumes in the waiting room it went up to 90. 4. Primary hypertension Assessment & Plan: Blood pressure was initially elevated, recheck was normal continue lisinopril hydrochlorothiazide 20-25 Follow up if symptoms worsen or fail to improve. SUBJECTIVE/OBJECTIVE: HPI -Ember comes in today for follow-up on the pain in her left knee she is here for an injection she said the last time he did that about 8 months ago it worked great and she is hoping it will work again. She said the pain is continued to get worse she may have a little swelling at times but nothing significant. Blood pressure is elevated today we will recheck that prior to discharge and she also had a pulse ox it was significantly low at 79 after walking back. Review of Systems Respiratory: Positive for shortness of breath and wheezing. Negative for chest tightness. Cardiovascular: Negative for chest pain and palpitations. Musculoskeletal: Positive for arthralgias, gait problem and joint swelling. Neurological: Negative for weakness and numbness. Vitals: 08/10/24 1113 08/10/24 1132 BP: (!) 158/65 104/65 Pulse: 90 SpO2: (!) 79% 90% Weight: 194 lb 3.2 oz (88.1 kg) Height: 5' 7 (1.702 m) Physical Exam Vitals and nursing note reviewed. Constitutional: Appearance: Normal appearance. She is obese. Musculoskeletal: Comments: Left knee with minimal effusion, no significant swelling normal range of motion with crepitus. Negative Quintin's negative Barbie's normal stability. Neurological: Mental Status: She is alert. An electronic signature was used to authenticate this note. Vu Mullins MD 08/10/2024 11:36 AM [facility] 36on 08-09-2024 36 ----- Message from Vu Mullins MD sent at 08/09/2024 3:09 PM EST ----- blood sugar is a little high at 138, chemistry is normal. A1c is okay at 6.7. Cholesterol total is borderline, good is very good at 71 canceling some of the bad at 109, very very strict low-fat low-cholesterol diet. Urine is negative for protein. Left a message to return call. [facility] 37on 08-08-2024 37 Personalized Preventative Plan for Kendra Buitrago - 08/08/2024 Medicare offers a range of preventative health benefits. Some of the tests and screenings are paid in full while others may be subject to a deductible, co-insurance, and / or copay. Some of these benefits include a comprehensive review of your medical history including lifestyle, illnesses that may run in your family, and various assessments and screenings as appropriate. After reviewing your medical record and screening and assessments performed today, your provider may have ordered immunizations, labs, imaging, and / or referrals for you. A list of these orders (if applicable) as well as your Preventative Care list are included within your After Visit Summary for your review. Other Preventative Recommendations: A preventive eye exam by an diabetes specialist is recommended every 1-2 years to screen for glaucoma, cataracts, macular degeneration, and other eye disorders. A preventive dental visit is recommended every 6 months. Try to get at least 150 minutes of exercise per week or 10,000 steps per day on a pedometer. You need 1200-1500mg of calcium and 9355-3436 international units of vitamin D per day. It is possible to meet your calcium requirement with diet alone, but a vitamin D supplement is usually necessary to meet this goal. When exposed to the sun, use a sunscreen that protects against both UVA and UVB radiation with an SPF of 30 or greater. Reapply every 2-3 hours or after sweating, drying off with a towel, or swimming. Always wear a seat belt when traveling in a car. Always wear a helmet when riding a bicycle or a motorcycle [facility] ECG 12 leadon 08-08-2024 [facility] Office Visiton 08-08-2024 Follow-up visit [id number] Luke Buitrago 1960 F Date Provider Department Center 08/08/2024 [id number] [facility] Family History Problem Relation Age of Onset Heart attack Father High Blood Pressure Mother Family Status - Relation Status Age at Father Mother Level of Service:G0402 [place] INITIAL PREVENTIVE EXAM Reason for Visit and Comments: Welcome To Medicare [105] Medicare Annual Wellness Visit Initial [276] Blood Work [546818] Health Maintenance [805] - Dental exam-not done will sched Eye exam- not done will sched Hep c screening- refuse Shingles vaccine- refuse 3rd covid vaccine- not done [facility] Progress Noteon 08-08-2024 Progress Note Remission, continue sertraline 100 mg daily [facility] Progress Note Stable, continue moisés y strict low-fat low-carb diet. [facility] Progress Note Remission, continue sertraline 100 mg daily [facility] Progress Note Controlled, last A1c was 6.4, continue very strict low-carb diet. [facility] Progress Note Schedule patient for left knee injection [facility] Progress Note Controlled, continue lisinopril hydrochlorothiazide 20-25 [facility] Progress Note stable but very labile, continue Trelegy, Daliresp 500 mg daily, DuoNeb solution as needed, albuterol as needed and Pulmicort daily. [facility] Progress Note Stable, continue oxygen at current settings and inhalers as needed. [facility] Progress Note Patient verified by last name and date of . [facility] Progress Note Counseled [address] [address] Dept: [phone] Dept Chief Complaint: Kendra Buitrago is an 63 y.o. female here for an annual wellness visit. Assessment/Plan : Problem List Items Addressed This Visit Chronic hypoxemic respiratory failure (HCC) Stable, continue oxygen at current settings and inhalers as needed. Chronic pain of left knee Schedule patient for left knee injection COPD (chronic obstructive pulmonary disease) (HCC) stable but very labile, continue Trelegy, Daliresp 500 mg daily, DuoNeb solution as needed, albuterol as needed and Pulmicort daily. Moderate episode of recurrent major depressive disorder (HCC) Remission, continue sertraline 100 mg daily Type 2 diabetes mellitus without complication, without long-term current use of insulin ([facility]/HCC) (HCC) Controlled, last A1c was 6.4, continue very strict low-carb diet. Relevant Orders Comprehensive metabolic panel Microalbumin / creatinine urine ratio Hemoglobin A1c Diabetes Foot Exam (Completed) Anxiety Remission, continue sertraline 100 mg daily Hypertension Controlled, continue lisinopril hydrochlorothiazide 20-25 Hypertriglyceridemia Stable, continue very strict low-fat low-carb diet. Relevant Orders Lipid panel Other Visit Diagnoses Routine general medical examination at health care facility - Primary Relevant Orders ECG 12 lead (Completed) I have reviewed and reconciled the medication list with the patient today. Current Outpatient Medications Medication Sig Dispense Refill albuterol (2.5 MG/3ML) 0.083% nebulizer solution Take 3 mL (2.5 mg) by nebulization 4 times daily as needed for wheezing or shortness of breath. 150 mL 1 albuterol 108 (90 Base) MCG/ACT inhaler INHALE 2 PUFF BY MOUTH AND INTO THE LUNGS EVERY 4 HOURS IF NEEDED 18 each 2 Blood Glucose Monitoring Suppl device Check glucose fasting in am and 2 hours after evening meal. 1 Device 0 budesonide (Pulmicort) 0.5 MG/2ML nebulizer solution fluticasone (Flonase) 50 MCG/ACT nasal spray Administer 2 sprays into each nostril daily. Shake gently. Before first use, prime pump. After use, clean tip and replace cap. 16 g 2 furosemide (Lasix) 40 MG tablet Take 40 mg by mouth daily. Glucose Blood (Blood Glucose Test) strip Use as directed 3x day. 90 strip 11 ipratropium-albuterol (Duo-Neb) 0.5-2.5 mg/3 mL nebulizer solution INHALE 1 VIAL BY NEBULIZATION four times a day if needed for wheezing 180 mL 1 lisinopril-hydroCHLORO thiazide 20-25 MG tablet TAKE 1 TABLET BY MOUTH EVERY DAY IN THE MORNING 90 tablet 1 omega-3 (fish oil) 1200 MG capsule 1,200 capsules. oxygen (O2) gas Inhale 3 L/min continuous. via nasal canula 2 liters daytime and 4 liters at night pseudoephedrine-guaiFE Nesin ER (Mucinex D) 60-600 MG 12 hr tablet Take 1 tablet by mouth every 12 hours. Do not crush, chew, or split. 60 tablet 2 Roflumilast (Daliresp) 500 MCG tablet Take 500 mcg by mouth daily. sertraline (Zoloft) 100 MG tablet take 1 tablet by mouth once daily 90 tablet 1 Trelegy Ellipta 100-62.5-25 MCG/INH aerosol powder INHALE 1 PUFF INTO THE LUNGS ONCE DAILY WITH GOOD ORAL CARE No current facility-administered medications for this visit. Also reviewed during this visit: The following health maintenance schedule was reviewed with the patient and provided in printed form in the after visit summary: Health Maintenance Topic Date Due Medicare Initial Physical (IPPE) Never done Bone Density Scan Never done Diabetes: Dental Exam Never done Mammogram 08/05/2022 Diabetes: Retinopathy Screening 06/22/2023 Diabetes: Urine Albumin-Creatinine Ratio for Kidney Health 07/23/2024 Lipid Panel 07/23/2024 Influenza Vaccine (1) 12/04/2024 (Originally 02/06/2024) RSV Immunization for Adults (1 - Risk 60-74 years 1-dose series) 01/20/2025 (Originally 2018) Pneumococcal Vaccine: 50+ Years (2 of 2 - PCV) 01/20/2025 (Originally 11/26/2019) Zoster Vaccines (1 of 2) 08/08/2025 (Originally 2008) Hepatitis C Screening 08/08/2025 (Originally 1976) COVID-19 Vaccine ( season) 2025 (Originally 02/06/2024) Lung Cancer Screening 11/01/2024 Diabetes: Estimated Glomerular Filtration Rate for Kidney Health 11/09/2024 Diabetes: Hemoglobin A1C 01/20/2025 Depression Monitoring 02/08/2025 Diabetes: Foot Exam 08/08/2025 Colorectal Cancer Screening 08/18/2025 DTaP/Tdap/Td Vaccines (2 - Td or Tdap) 07/20/2026 Medicare Advantage Annual Wellness Visit Completed RSV Immunization under 20 Months Aged Out HIB Vaccines Aged Out Hepatitis B Vaccines Aged Out IPV Vaccines Aged Out Hepatitis A Vaccines Aged Out Meningococcal Vaccine Aged Out Rotavirus Vaccines Aged Out HPV Vaccines Aged Out MMR Vaccines Discontinued Cervical Cancer Screening Discontinued List of current healthcare providers: Patient Care Team: Vu Mullins (more content not included)... Normal [facility] CBC W/Diff, Automatedon 07-09 Absolute Lymph 1.31 X10 3/uL Normal 0.83-4.51 [facility] Comment on above: Performed By: #### L 100.0100 #### [facility] [address] [place], [place], [id number] Absolute Neut 5.8 X10 3/uL Normal 2.0-7.7 [facility] Comment on above: Performed By: #### L 100.0100 #### [facility] [address] [place], [address] Basophils/100 WBC (Bld) 0.8 % Normal 0-1 [facility] Comment on above: Performed By: #### L 100.0100 #### [facility] [address] [place], [address] Eosinophils/100 WBC (Bld) 1.8 % Normal 0-5 [facility] Comment on above: Performed By: #### L 100.0100 #### [facility] [address] [place], [address] Erythrocyte distribution width (RBC) [Ratio] 12.7 % Normal 11.6-14.6 [facility] Comment on above: Performed By: #### L 100.0100 #### [facility] [address] [place], [address] Hematocrit (Bld) [Volume fraction] 42.7 % Normal 37-47 [facility] Comment on above: Performed By: #### L 100.0100 #### [facility] [address] [place], [address] Hemoglobin (Bld) [Mass/Vol] 13.2 g/dL Normal 12.0-15.0 [facility] Comment on above: Performed By: #### L 100.0100 #### [facility] [address] [place], [address] IG% 0.400 Normal 0.0-0.9 [facility] Comment on above: Result Comment: IG% - Immature Granulocytes (promyelocytes, myelocytes and metamyelocytes) > 1% indicates that a LEFT SHIFT is Present. Performed By: #### L 100.0100 #### [facility] [address] [place], [address] Lymphocytes/100 WBC (Bld) 16.7 % Low 19-41 [facility] Comment on above: Performed By: #### L 100.0100 #### [facility] [address] [place], [address] MCH (RBC) [Entitic mass] 30.5 pg Normal 27.0-32.0 [facility] Comment on above: Performed By: #### L 100.0100 #### [facility] [address] [place], [address] MCHC (RBC) [Mass/Vol] 30.9 g/dL Low 32-36 [facility] Comment on above: Performed By: #### L 100.0100 #### [facility] [address] [place], [address] MCV (RBC) [Entitic vol] 98.6 fL Normal 81-99 [facility] Comment on above: Performed By: #### L 100.0100 #### [facility] [address] [place], [address] Monocytes/100 WBC (Bld) 6.0 % Normal 0-10 [facility] Comment on above: Performed By: #### L 100.0100 #### [facility] [address] [place], [address] Neutrophils/100 WBC (Bld) 74.3 % High 47-70 [facility] Comment on above: Performed By: #### L 100.0100 #### [facility] [address] [place], [address] Nucleated RBC (Bld) [#/Vol] 0 10*3/uL Normal 0-5 [facility] Comment on above: Performed By: #### L 100.0100 #### [facility] [address] [place], [address] Platelet mean volume (Bld) [Entitic vol] 9.5 fL Normal 6.2-12.0 [facility] Comment on above: Performed By: #### L 100.0100 #### [facility] [address] [place], [address] Platelets (Bld) [#/Vol] 203 10*3/uL Normal 150-450 [facility] Comment on above: Performed By: #### L 100.0100 #### [facility] [address] [place], [address] RBC (Bld) [#/Vol] 4.33 10*6/uL Normal 4.2-5.4 [facility] Comment on above: Performed By: #### L 100.0100 #### [facility] [address] [place], [address] RDW SD 46.7 fl High 35.1-43.9 [facility] Comment on above: Performed By: #### L 100.0100 #### [facility] [address] [place], [address] WBC (Bld) [#/Vol] 7.8 10*3/uL Normal 4.4-11.0 [facility] Comment on above: Performed By: #### L 100.0100 #### [facility] [address] [place], [address] 36on 07-20-2024 36 Pt notified and I ga ve her the number to call and get scheduled [facility] 36on 07-19-2024 36 Defer until tomorrow since attempt was made today. [facility] 36 We have been unable to reach your patient to schedule their testing. Test Name: physical therapy 1st Attempt: lv 06-22-24 2nd Attempt: sent [employer] message 07-19-24 [facility] 36on 07-17-2024 36 Reviewed chart. Refi ll appropriate. RX sent. [facility] 36 Prescription Request : Last medication check: 06/21/24 Last physical exam: 07/23/23 Next scheduled appointment: 08/08/24 Last date of refill on this medication 01/21/24 90 and 1 refill [facility] Progress Noteon 07-04-2024 Progress Note EMR reviewed. The patient had a hospital follow-up appt. with PCP on 06/21/24: ABILIO Fraser comes in today for follow-up on her hospital admission she was admitted on and was in for 6 days, no contact was made within 48 hours so we are unable to bill this as a ZEINAB. Her pulse ox today which she walks back to the room was 83 however when she sat for a period of time her oxygen was 94% on 5 L. She states she was put on antibiotics while she was in the hospital she was diagnosed with a COPD exacerbation with hypercapnia and hypoxia and she also was found to have congestive heart failure on a CT scan of her lung and was sent home on Lasix. Her echocardiogram showed normal ejection fraction of 60%. She said she had been feeling fine but the last couple days she has started to feel like her sinuses are plugged up like she is getting congested and is wondering if she is starting to come down with a sinus infection. D is also complaining of weakness of her legs she says she can only stand for couple of minutes says this has been an ongoing problem and since she was in the hospital it progressively had gotten worse. We discussed physical therapy and she is agreeable. She also says that her back in the lower region spasms down. Vitals: BP 107/53 Pulse 89 Ht 1.702 m (5' 7) Wt 85.8 kg (189 lb 3.2 oz) SpO2 94% BMI 29.63 kg/m? BSA 2.01 m? PMH: COPD, HTN, DM2, DEPRESSION, ANXIETY, EDEMA, HIGH TRIGLYCERIDES Follow-up appts: 07/12/24-Family medicine HTN MEDS: Lisinopril/hydrochloro thiazide 20-25mg daily ?monitoring BP's every other day ?edema COPD MEDS: Trelegy inhaler 1 puff daily ?still using Albuterol inhaler 2 puffs as needed ?still using nebulizer once or twice daily ?monitoring pulse ox ?still using 4L O2 continuously ?wheezing or SOB Another outreach attempted. CM left a voicemail message requesting a callback. Scheduled next outreach. [facility] 36on 06-26-2024 36 Reviewed chart. Refi ll appropriate. RX sent. [facility] 36 Prescription Request : Last medication check: 01/21/24 Last physical exam: 07/23/23 Last completed appointment: 06/21/24 Next scheduled appointment: 07/12/24 Last date of refill on this medication: 04/14/24 [facility] 29on 06-21-2024 29 Addended by: VU MULLINS on: 06/21/2024 03:25 PM Modules accepted: Orders [facility] Office Visiton 06-21-2024 Follow-up visit [id number] Luke Buitrago guy Bland 1960 F Date Provider Department Center 06/21/2024 [id number] Family History Problem Relation Age of Onset Heart attack Father High Blood Pressure Mother Family Status - Relation Status Age at Father Mother Level of Service:65527 [place] OFFICE/OUTPATIENT ESTABLISHED MOD MDM 30 MIN Reason for Visit and Comments: Transitional Care Management Outreach [64087] Hospital Follow-up [832] - 06/07-06/12/24 [facility] Progress Noteon 06-21-2024 Progress Note Zithromax Z-Ammon take as directed. Saline nasal spray and humidifier. [facility] Progress Note Resolved, continue current medications. [facility] Progress Note Stable, continue albuterol, and DuoNeb solution and Daliresp. And Trelegy [facility] Progress Note Stable, continue oxygen and adjust to keep sats above 90, nebulizer treatment and inhalers. [facility] Progress Note Patient verified by last name and date of . [facility] Progress Note 06/21/2024 Kendra Buitrago (: 1960) is a 63 y.o. female , Established patient, here for evaluation of the following chief complaint(s): Transitional Care Management Outreach and Hospital Follow-up (06/07-06/12/24/) ASSESSMENT/PLAN: 1. Chronic obstructive pulmonary disease, unspecified COPD type (HCC) Assessment & Plan: Stable, continue albuterol, and DuoNeb solution and Daliresp. And Trelegy 2. COPD exacerbation (HCC) Assessment & Plan: Resolved, continue current medications. 3. Chronic hypoxemic respiratory failure (HCC) Assessment & Plan: Stable, continue oxygen and adjust to keep sats above 90, nebulizer treatment and inhalers. 4. Acute non-recurrent frontal sinusitis Assessment & Plan: Zithromax Z-Ammon take as directed. Saline nasal spray and humidifier. 5. Weakness of both lower extremities Assessment & Plan: Referral to physical therapy for core strengthening and leg strengthening [facility] Follow up if symptoms worsen or fail to improve. SUBJECTIVE/OBJECTIVE: ABILIO Fraser comes in today for follow-up on her hospital admission she was admitted on and was in for 6 days, no contact was made within 48 hours so we are unable to bill this as a ZEINAB. Her pulse ox today which she walks back to the room was 83 however when she sat for a period of time her oxygen was 94% on 5 L. She states she was put on antibiotics while she was in the hospital she was diagnosed with a COPD exacerbation with hypercapnia and hypoxia and she also was found to have congestive heart failure on a CT scan of her lung and was sent home on Lasix. Her echocardiogram showed normal ejection fraction of 60%. She said she had been feeling fine but the last couple days she has started to feel like her sinuses are plugged up like she is getting congested and is wondering if she is starting to come down with a sinus infection. D is also complaining of weakness of her legs she says she can only stand for couple of minutes says this has been an ongoing problem and since she was in the hospital it progressively had gotten worse. We discussed physical therapy and she is agreeable. She also says that her back in the lower region spasms down. Review of Systems Constitutional: Negative for chills and fever. HENT: Negative for ear pain, rhinorrhea and sinus pressure. Respiratory: Positive for shortness of breath. Cardiovascular: Negative for chest pain and palpitations. Vitals: 06/21/24 1348 06/21/24 1412 BP: 107/53 Pulse: 89 SpO2: (!) 83% 94% Weight: 189 lb 3.2 oz (85.8 kg) Height: 5' 7 (1.702 m) Physical Exam Vitals and nursing note reviewed. Constitutional: General: She is not in acute distress. Appearance: Normal appearance. HENT: Head: Normocephalic and atraumatic. Nose: Right Sinus: Frontal sinus tenderness present. No maxillary sinus tenderness. Left Sinus: Frontal sinus tenderness present. No maxillary sinus tenderness. Mouth/Throat: Mouth: Mucous membranes are moist. Pharynx: Oropharynx is clear. Eyes: Extraocular Movements: Extraocular movements intact. Pupils: Pupils are equal, round, and reactive to light. Cardiovascular: Rate and Rhythm: Normal rate and regular rhythm. Heart sounds: Normal heart sounds. No murmur heard. Pulmonary: Effort: Pulmonary effort is normal. Breath sounds: Examination of the right-lower field reveals decreased breath sounds. Examination of the left-lower field reveals decreased breath sounds. Decreased breath sounds present. No wheezing, rhonchi or rales. Musculoskeletal: Cervical back: Neck supple. Lymphadenopathy: Cervical: No cervical adenopathy. Neurological: Mental Status: She is alert. An electronic signature was used to authenticate this note. Vu Mullins MD 06/21/2024 3:25 PM Normal [facility] Basic Metabolic Profile (BMP )on 06-12-2024 BUN/CRE 31.9 RATIO High 10-20 [facility] Comment on above: Performed By: #### L 500.2500, L100.0100 #### [facility] [address] [place], [address] CA,Total 9.2 mg/dL Normal 8.5-10.1 [facility] Comment on above: Performed By: #### L 500.2500, L100.0100 #### [facility] [address] [place], [address] Chloride [Moles/Vol] 91 mmol/L Low 98-107 [facility] Comment on above: Performed By: #### L 500.2500, L100.0100 #### [facility] [address] [facility] [place], [address] CO2 [Moles/Vol] 44.0 mmol/L High 21.0-32.0 [facility] Comment on above: Performed By: #### L 500.2500, L100.0100 #### [facility] [address] [place], [address] Creatinine [Mass/Vol] 0.60 mg/dL Normal 0.55-1.02 [facility] Comment on above: Result Comment: The validity of the calculated GFR GFRAA in patients over 70 years has not been determined. Clinical correlation is essential. Performed By: #### L 500.2500, L100.0100 #### [facility] [address] [place], [address] ECRCL 81.37 ml/min Normal [facility] Comment on above: Performed By: #### L 500.2500, L100.0100 #### [facility] [address] [place], [address] EST GFR - AA 130 mL/min Normal >60 [facility] Comment on above: Result Comment: Afri can [facility] GFR Calc Performed By: #### L 500.2500, L100.0100 #### [facility] [address] [place], [address] GAP 2 Low 5-15 [facility] Comment on above: Performed By: #### L 500.2500, L100.0100 #### [facility] [address] [place], [address] GFR/1.73 sq M.predicted among non-blacks MDRD (S/P/Bld) [Vol rate/Area] 107 mL/min/{1.73_m2} Normal >60 [facility] Comment on above: Result Comment: Non- GFR Calc Performed By: #### L 500.2500, L100.0100 #### [facility] [address] [place], [address] Glucose [Mass/Vol] 106 mg/dL Normal 74-106 [facility] Comment on above: Result Comment: Fast ing Glucose result from 100 to 125 mg/dL suggests IMPAIRED HOMEOSTASIS per A.D.A. criteria. Performed By: #### L 500.2500, L100.0100 #### [facility] [address] [place], [address] Potassium [Moles/Vol] 4.1 mmol/L Normal 3.5-5.1 [facility] Comment on above: Performed By: #### L 500.2500, L100.0100 #### [facility] [address] [place], [address] Sodium [Moles/Vol] 137 mmol/L Normal 136-145 [facility] Comment on above: Performed By: #### L 500.2500, L100.0100 #### [facility] [address] [place], [address] Urea nitrogen [Mass/Vol] 19 mg/dL High 7-18 [facility] Comment on above: Performed By: #### L 500.2500, L100.0100 #### [facility] [address] [place], [address] CBC W/Diff, Automatedon 01-0 6-2024 Absolute Lymph 2.39 X10 3/uL Normal 0.83-4.51 [facility] Comment on above: Performed By: #### L 500.2500, L100.0100 #### [facility] [address] [place], [address] Absolute Neut 5.3 X10 3/uL Normal 2.0-7.7 [facility] Comment on above: Performed By: #### L 500.2500, L100.0100 #### [facility] [address] [place], [address] Basophils/100 WBC (Bld) 0.3 % Normal 0-1 [facility] Comment on above: Performed By: #### L 500.2500, L100.0100 #### [facility] [address] [place], [address] Eosinophils/100 WBC (Bld) 1.7 % Normal 0-5 [facility] Comment on above: Performed By: #### L 500.2500, L100.0100 #### [facility] [address] [place], [address] Erythrocyte distribution width (RBC) [Ratio] 13.4 % Normal 11.6-14.6 [facility] Comment on above: Performed By: #### L 500.2500, L100.0100 #### [facility] [address] [place], [address] Hematocrit (Bld) [Volume fraction] 44.9 % Normal 37-47 [facility] Comment on above: Performed By: #### L 500.2500, L100.0100 #### [facility] [address] [place], [address] Hemoglobin (Bld) [Mass/Vol] 13.6 g/dL Normal 12.0-15.0 [facility] Comment on above: Performed By: #### L 500.2500, L100.0100 #### [facility] [address] [place], [address] IG% 0.500 Normal 0.0-0.9 [facility] Comment on above: Result Comment: IG% - Immature Granulocytes (promyelocytes, myelocytes and metamyelocytes) > 1% indicates that a LEFT SHIFT is Present. Performed By: #### L 500.2500, L100.0100 #### [facility] [address] [place], [address] Lymphocytes/100 WBC (Bld) 27.0 % Normal 19-41 [facility] Comment on above: Performed By: #### L 500.2500, L100.0100 #### [facility] [address] [place], [address] MCH (RBC) [Entitic mass] 30.0 pg Normal 27.0-32.0 [facility] Comment on above: Performed By: #### L 500.2500, L100.0100 #### [facility] [address] [place], [address] MCHC (RBC) [Mass/Vol] 30.3 g/dL Low 32-36 [facility] Comment on above: Performed By: #### L 500.2500, L100.0100 #### [facility] [address] [place], [address] MCV (RBC) [Entitic vol] 99.1 fL High 81-99 [facility] Comment on above: Performed By: #### L 500.2500, L100.0100 #### [facility] [address] [place], [address] Monocytes/100 WBC (Bld) 10.6 % High 0-10 [facility] Comment on above: Performed By: #### L 500.2500, L100.0100 #### [facility] [address] [place], [address] Neutrophils/100 WBC (Bld) 59.9 % Normal 47-70 [facility] Comment on above: Performed By: #### L 500.2500, L100.0100 #### [facility] [address] [place], [address] Nucleated RBC (Bld) [#/Vol] 0 10*3/uL Normal 0-5 [facility] Comment on above: Performed By: #### L 500.2500, L100.0100 #### [facility] [address] [place], [address] Platelet mean volume (Bld) [Entitic vol] 9.9 fL Normal 6.2-12.0 [facility] Comment on above: Performed By: #### L 500.2500, L100.0100 #### [facility] [address] [place], [address] Platelets (Bld) [#/Vol] 202 10*3/uL Normal 150-450 [facility] Comment on above: Performed By: #### L 500.2500, L100.0100 #### [facility] [address] [place], [address] RBC (Bld) [#/Vol] 4.53 10*6/uL Normal 4.2-5.4 [facility] Comment on above: Performed By: #### L 500.2500, L100.0100 #### [facility] [address] [place], [address] RDW SD 49.1 fl High 35.1-43.9 [facility] Comment on above: Performed By: #### L 500.2500, L100.0100 #### [facility] [address] [place], [address] WBC (Bld) [#/Vol] 8.9 10*3/uL Normal 4.4-11.0 [facility] Comment on above: Performed By: #### L 500.2500, L100.0100 #### [facility] [address] [place], [address] Culture, Blood (WB)on 2024 CUB Blood cultures x2, from two different sites No growth in 5 days. Normal [facility] Comment on above: Performed By: #### L 100.0100 #### [facility] [address] [place], [address] Basic Metabolic Profile (BMP )on 06-11-2024 BUN/CRE 38.2 RATIO High 10-20 [facility] Comment on above: Performed By: #### L 500.3400, L501.4020, L500.2500 #### [facility] [address] [place], [address] CA,Total 9.4 mg/dL Normal 8.5-10.1 [facility] Comment on above: Performed By: #### L 500.3400, L501.4020, L500.2500 #### [facility] [address] [place], [address] Chloride [Moles/Vol] 92 mmol/L Low 98-107 [facility] Comment on above: Performed By: #### L 500.3400, L501.4020, L500.2500 #### [facility] [address] [place], [address] CO2 [Moles/Vol] mmol/L Invalid Interpretation Code 21.0-32.0 [facility] Comment on above: Result Comment: Crit ical Result(s) Called at: 06:21:10 06/11/2024 by: Jones Spaulding to Marycruz DONIS ([facility]). Results read back by same. Performed By: #### L 500.3400, L501.4020, L500.2500 #### [facility] [address] [place], [address] Creatinine [Mass/Vol] 0.58 mg/dL Normal 0.55-1.02 [facility] Comment on above: Result Comment: The validity of the calculated GFR GFRAA in patients over 70 years has not been determined. Clinical correlation is essential. Performed By: #### L 500.3400, L501.4020, L500.2500 #### [facility] [address] [place], [address] ECRCL 81.37 ml/min Normal [facility] Comment on above: Performed By: #### L 500.3400, L501.4020, L500.2500 #### [facility] [address] [place], [address] EST GFR - AA 135 mL/min Normal >60 [facility] Comment on above: Result Comment: Afri can [facility] GFR Calc Performed By: #### L 500.3400, L501.4020, L500.2500 #### [facility] [address] [place], [address] GAP TNP Normal 5-15 [facility] Comment on above: Performed By: #### L 500.3400, L501.4020, L500.2500 #### [facility] [address] [place], [address] GFR/1.73 sq M.predicted among non-blacks MDRD (S/P/Bld) [Vol rate/Area] 112 mL/min/{1.73_m2} Normal >60 [facility] Comment on above: Result Comment: Non- GFR Calc Performed By: #### L 500.3400, L501.4020, L500.2500 #### [facility] [address] [place], [address] Glucose [Mass/Vol] 184 mg/dL High 74-106 [facility] Comment on above: Result Comment: Fast ing Glucose result greater than or equal to 126 mg/dL suggests DIABETES MELLITUS per A.D.A. criteria. Performed By: #### L 500.3400, L501.4020, L500.2500 #### [facility] [address] [place], [address] Potassium [Moles/Vol] 3.7 mmol/L Normal 3.5-5.1 [facility] Comment on above: Performed By: #### L 500.3400, L501.4020, L500.2500 #### [facility] [address] [place], [address] Sodium [Moles/Vol] 141 mmol/L Normal 136-145 [facility] Comment on above: Performed By: #### L 500.3400, L501.4020, L500.2500 #### [facility] [address] [place], [address] Urea nitrogen [Mass/Vol] 22 mg/dL High 7-18 [facility] Comment on above: Performed By: #### L 500.3400, L501.4020, L500.2500 #### [facility] [address] [place], [address] CBC W/Diff, Automatedon 01-0 5-2024 Absolute Lymph 1.65 X10 3/uL Normal 0.83-4.51 [facility] Comment on above: Performed By: #### L 500.3400, L501.4020, L500.2500 #### [facility] [address] [place], [address] Absolute Neut 5.5 X10 3/uL Normal 2.0-7.7 [facility] Comment on above: Performed By: #### L 500.3400, L501.4020, L500.2500 #### [facility] [address] [place], [address] Basophils/100 WBC (Bld) 0.4 % Normal 0-1 [facility] Comment on above: Performed By: #### L 500.3400, L501.4020, L500.2500 #### [facility] [address] [place], [address] Eosinophils/100 WBC (Bld) 1.2 % Normal 0-5 [facility] Comment on above: Performed By: #### L 500.3400, L501.4020, L500.2500 #### [facility] [address] [place], [address] Erythrocyte distribution width (RBC) [Ratio] 13.4 % Normal 11.6-14.6 [facility] Comment on above: Performed By: #### L 500.3400, L501.4020, L500.2500 #### [facility] [address] [place], [address] Hematocrit (Bld) [Volume fraction] 41.0 % Normal 37-47 [facility] Comment on above: Performed By: #### L 500.3400, L501.4020, L500.2500 #### [facility] [address] [place], [address] Hemoglobin (Bld) [Mass/Vol] 12.3 g/dL Normal 12.0-15.0 [facility] Comment on above: Performed By: #### L 500.3400, L501.4020, L500.2500 #### [facility] [address] [place], [address] IG% 0.600 Normal 0.0-0.9 [facility] Comment on above: Result Comment: IG% - Immature Granulocytes (promyelocytes, myelocytes and metamyelocytes) > 1% indicates that a LEFT SHIFT is Present. Performed By: #### L 500.3400, L501.4020, L500.2500 #### [facility] [address] [place], [address] Lymphocytes/100 WBC (Bld) 20.1 % Normal 19-41 [facility] Comment on above: Performed By: #### L 500.3400, L501.4020, L500.2500 #### [facility] [address] [place], [address] MCH (RBC) [Entitic mass] 30.2 pg Normal 27.0-32.0 [facility] Comment on above: Performed By: #### L 500.3400, L501.4020, L500.2500 #### [facility] [address] [place], [address] MCHC (RBC) [Mass/Vol] 30.0 g/dL Low 32-36 [facility] Comment on above: Performed By: #### L 500.3400, L501.4020, L500.2500 #### [facility] [address] [place], [address] MCV (RBC) [Entitic vol] 100.7 fL High 81-99 [facility] Comment on above: Performed By: #### L 500.3400, L501.4020, L500.2500 #### [facility] [address] [place], [address] Monocytes/100 WBC (Bld) 11.3 % High 0-10 [facility] Comment on above: Performed By: #### L 500.3400, L501.4020, L500.2500 #### [facility] [address] [place], [address] Neutrophils/100 WBC (Bld) 66.4 % Normal 47-70 [facility] Comment on above: Performed By: #### L 500.3400, L501.4020, L500.2500 #### [facility] [address] [place], [address] Nucleated RBC (Bld) [#/Vol] 0 10*3/uL Normal 0-5 [facility] Comment on above: Performed By: #### L 500.3400, L501.4020, L500.2500 #### [facility] [address] [place], [address] Platelet mean volume (Bld) [Entitic vol] 9.4 fL Normal 6.2-12.0 [facility] Comment on above: Performed By: #### L 500.3400, L501.4020, L500.2500 #### [facility] [address] [place], [address] Platelets (Bld) [#/Vol] 186 10*3/uL Normal 150-450 [facility] Comment on above: Performed By: #### L 500.3400, L501.4020, L500.2500 #### [facility] [address] [place], [address] RBC (Bld) [#/Vol] 4.07 10*6/uL Low 4.2-5.4 [facility] Comment on above: Performed By: #### L 500.3400, L501.4020, L500.2500 #### [facility] [address] [place], [address] RDW SD 50.0 fl High 35.1-43.9 [facility] Comment on above: Performed By: #### L 500.3400, L501.4020, L500.2500 #### [facility] [address] [place], [address] WBC (Bld) [#/Vol] 8.2 10*3/uL Normal 4.4-11.0 [facility] Comment on above: Performed By: #### L 500.3400, L501.4020, L500.2500 #### [facility] [address] [place], [address] Basic Metabolic Profile (BMP )on 06-10-2024 BUN/CRE 39.4 RATIO High 10-20 [facility] Comment on above: Performed By: #### L 500.2500, L100.0100 #### [facility] [address] [place], [address] CA,Total 9.4 mg/dL Normal 8.5-10.1 [facility] Comment on above: Performed By: #### L 500.2500, L100.0100 #### [facility] [address] [place], [address] Chloride [Moles/Vol] 91 mmol/L Low 98-107 [facility] Comment on above: Performed By: #### L 500.2500, L100.0100 #### [facility] [address] [place], [address] CO2 [Moles/Vol] mmol/L Invalid Interpretation Code 21.0-32.0 [facility] Comment on above: Result Comment: Crit ical Result(s) Called at: 07:49:33 06/10/2024 by: Jones Spaulding to Chiqui DONIS (U). Results read back by same. Performed By: #### L 500.2500, L100.0100 #### [facility] [address] [place], [address] Creatinine [Mass/Vol] 0.58 mg/dL Normal 0.55-1.02 [facility] Comment on above: Result Comment: The validity of the calculated GFR GFRAA in patients over 70 years has not been determined. Clinical correlation is essential. Performed By: #### L 500.2500, L100.0100 #### [facility] [address] [place], [address] ECRCL 80.44 ml/min Normal [facility] Comment on above: Performed By: #### L 500.2500, L100.0100 #### [facility] [address] [place], [address] EST GFR - AA 133 mL/min Normal >60 [facility] Comment on above: Result Comment: Afri can [facility] GFR Calc Performed By: #### L 500.2500, L100.0100 #### [facility] [address] [place], [address] GAP TNP Normal 5-15 [facility] Comment on above: Performed By: #### L 500.2500, L100.0100 #### [facility] [address] [place], [address] GFR/1.73 sq M.predicted among non-blacks MDRD (S/P/Bld) [Vol rate/Area] 110 mL/min/{1.73_m2} Normal >60 [facility] Comment on above: Result Comment: Non- GFR Calc Performed By: #### L 500.2500, L100.0100 #### [facility] [address] [place], [address] Glucose [Mass/Vol] 105 mg/dL Normal 74-106 [facility] Comment on above: Result Comment: Fast ing Glucose result from 100 to 125 mg/dL suggests IMPAIRED HOMEOSTASIS per A.D.A. criteria. Performed By: #### L 500.2500, L100.0100 #### [facility] [address] [place], [address] Potassium [Moles/Vol] 4.0 mmol/L Normal 3.5-5.1 [facility] Comment on above: Result Comment: Slig ht Hemolysis, Result may be falsely increased. Performed By: #### L 500.2500, L100.0100 #### [facility] [address] [place], [address] Sodium [Moles/Vol] 139 mmol/L Normal 136-145 [facility] Comment on above: Performed By: #### L 500.2500, L100.0100 #### [facility] [address] [place], [address] Urea nitrogen [Mass/Vol] 23 mg/dL High 7-18 [facility] Comment on above: Performed By: #### L 500.2500, L100.0100 #### [facility] [address] [place], [address] CBC W/Diff, Automatedon 01-0 4-2024 Absolute Lymph 2.17 X10 3/uL Normal 0.83-4.51 [facility] Comment on above: Performed By: #### L 500.2500, L100.0100 #### [facility] [address] [place], [address] Absolute Neut 5.0 X10 3/uL Normal 2.0-7.7 [facility] Comment on above: Performed By: #### L 500.2500, L100.0100 #### [facility] [address] [place], [address] Basophils/100 WBC (Bld) 0.5 % Normal 0-1 [facility] Comment on above: Performed By: #### L 500.2500, L100.0100 #### [facility] [address] [place], [address] Eosinophils/100 WBC (Bld) 1.3 % Normal 0-5 [facility] Comment on above: Performed By: #### L 500.2500, L100.0100 #### [facility] [address] [place], [address] Erythrocyte distribution width (RBC) [Ratio] 13.4 % Normal 11.6-14.6 [facility] Comment on above: Performed By: #### L 500.2500, L100.0100 #### [facility] [address] [place], [address] Hematocrit (Bld) [Volume fraction] 43.8 % Normal 37-47 [facility] Comment on above: Performed By: #### L 500.2500, L100.0100 #### [facility] [address] [place], [address] Hemoglobin (Bld) [Mass/Vol] 13.1 g/dL Normal 12.0-15.0 [facility] Comment on above: Performed By: #### L 500.2500, L100.0100 #### [facility] [address] [place], [address] IG% 0.600 Normal 0.0-0.9 [facility] Comment on above: Result Comment: IG% - Immature Granulocytes (promyelocytes, myelocytes and metamyelocytes) > 1% indicates that a LEFT SHIFT is Present. Performed By: #### L 500.2500, L100.0100 #### [facility] [address] [place], [address] Lymphocytes/100 WBC (Bld) 26.1 % Normal 19-41 [facility] Comment on above: Performed By: #### L 500.2500, L100.0100 #### [facility] [address] [place], [address] MCH (RBC) [Entitic mass] 30.4 pg Normal 27.0-32.0 [facility] Comment on above: Performed By: #### L 500.2500, L100.0100 #### [facility] [address] [place], [address] MCHC (RBC) [Mass/Vol] 29.9 g/dL Low 32-36 [facility] Comment on above: Performed By: #### L 500.2500, L100.0100 #### [facility] [address] [place], [address] MCV (RBC) [Entitic vol] 101.6 fL High 81-99 [facility] Comment on above: Performed By: #### L 500.2500, L100.0100 #### [facility] [address] [place], [address] Monocytes/100 WBC (Bld) 11.2 % High 0-10 [facility] Comment on above: Performed By: #### L 500.2500, L100.0100 #### [facility] [address] [place], [address] Neutrophils/100 WBC (Bld) 60.3 % Normal 47-70 [facility] Comment on above: Performed By: #### L 500.2500, L100.0100 #### [facility] [address] [place], [address] Nucleated RBC (Bld) [#/Vol] 0 10*3/uL Normal 0-5 [facility] Comment on above: Performed By: #### L 500.2500, L100.0100 #### [facility] [address] [place], [address] Platelet mean volume (Bld) [Entitic vol] 9.9 fL Normal 6.2-12.0 [facility] Comment on above: Performed By: #### L 500.2500, L100.0100 #### [facility] [address] [place], [address] Platelets (Bld) [#/Vol] 223 10*3/uL Normal 150-450 [facility] Comment on above: Performed By: #### L 500.2500, L100.0100 #### [facility] [address] [place], [address] RBC (Bld) [#/Vol] 4.31 10*6/uL Normal 4.2-5.4 [facility] Comment on above: Performed By: #### L 500.2500, L100.0100 #### [facility] [address] [place], [address] RDW SD 50.7 fl High 35.1-43.9 [facility] Comment on above: Performed By: #### L 500.2500, L100.0100 #### [facility] [address] [place], [address] WBC (Bld) [#/Vol] 8.3 10*3/uL Normal 4.4-11.0 [facility] Comment on above: Performed By: #### L 500.2500, L100.0100 #### [facility] [address] [place], [address] Basic Metabolic Profile (BMP )on 06-09-2024 BUN/CRE 41.6 RATIO High 10-20 [facility] Comment on above: Performed By: #### L 500.3400, L501.4020, L500.2500 #### [facility] [address] [place], [address] CA,Total 9.2 mg/dL Normal 8.5-10.1 [facility] Comment on above: Performed By: #### L 500.3400, L501.4020, L500.2500 #### [facility] [address] [place], [address] Chloride [Moles/Vol] 91 mmol/L Low 98-107 [facility] Comment on above: Performed By: #### L 500.3400, L501.4020, L500.2500 #### [facility] [address] [place], [address] CO2 [Moles/Vol] mmol/L Invalid Interpretation Code 21.0-32.0 [facility] Comment on above: Result Comment: Crit ical Result(s) Called at: 09:18:44 06/09/2024 by: JOZEF CROW to Netta Toribio. Results read back by same. Performed By: #### L 500.3400, L501.4020, L500.2500 #### [facility] [address] [place], [address] Creatinine [Mass/Vol] 0.58 mg/dL Normal 0.55-1.02 [facility] Comment on above: Result Comment: The validity of the calculated GFR GFRAA in patients over 70 years has not been determined. Clinical correlation is essential. Performed By: #### L 500.3400, L501.4020, L500.2500 #### [facility] [address] [place], [address] ECRCL 81.46 ml/min Normal [facility] Comment on above: Performed By: #### L 500.3400, L501.4020, L500.2500 #### [facility] [address] [place], [address] EST GFR - AA 135 mL/min Normal >60 [facility] Comment on above: Result Comment: Afri can [facility] GFR Calc Performed By: #### L 500.3400, L501.4020, L500.2500 #### [facility] [address] [place], [address] GAP TNP Normal 5-15 [facility] Comment on above: Performed By: #### L 500.3400, L501.4020, L500.2500 #### [facility] [address] [place], [address] GFR/1.73 sq M.predicted among non-blacks MDRD (S/P/Bld) [Vol rate/Area] 111 mL/min/{1.73_m2} Normal >60 [facility] Comment on above: Result Comment: Non- GFR Calc Performed By: #### L 500.3400, L501.4020, L500.2500 #### [facility] [address] [place], [address] Glucose [Mass/Vol] 110 mg/dL High 74-106 [facility] Comment on above: Result Comment: Fast ing Glucose result from 100 to 125 mg/dL suggests IMPAIRED HOMEOSTASIS per A.D.A. criteria. Performed By: #### L 500.3400, L501.4020, L500.2500 #### [facility] [address] [place], [address] Potassium [Moles/Vol] 3.4 mmol/L Low 3.5-5.1 [facility] Comment on above: Performed By: #### L 500.3400, L501.4020, L500.2500 #### [facility] [address] [place], [address] Sodium [Moles/Vol] 142 mmol/L Normal 136-145 [facility] Comment on above: Performed By: #### L 500.3400, L501.4020, L500.2500 #### [facility] [address] [place], [address] Urea nitrogen [Mass/Vol] 24 mg/dL High 7-18 [facility] Comment on above: Performed By: #### L 500.3400, L501.4020, L500.2500 #### [facility] [address] [place], [address] CBC W/Diff, Automatedon 01-0 3-2025 Absolute Lymph 2.02 X10 3/uL Normal 0.83-4.51 [facility] Comment on above: Performed By: #### L 500.3400, L501.4020, L500.2500 #### [facility] [address] [place], [address] Absolute Neut 5.8 X10 3/uL Normal 2.0-7.7 [facility] Comment on above: Performed By: #### L 500.3400, L501.4020, L500.2500 #### [facility] [address] [place], [address] Basophils/100 WBC (Bld) 0.4 % Normal 0-1 [facility] Comment on above: Performed By: #### L 500.3400, L501.4020, L500.2500 #### [facility] [address] [place], [address] Eosinophils/100 WBC (Bld) 0.4 % Normal 0-5 [facility] Comment on above: Performed By: #### L 500.3400, L501.4020, L500.2500 #### [facility] [address] [place], [address] Erythrocyte distribution width (RBC) [Ratio] 13.6 % Normal 11.6-14.6 [facility] Comment on above: Performed By: #### L 500.3400, L501.4020, L500.2500 #### [facility] [address] [place], [address] Hematocrit (Bld) [Volume fraction] 41.9 % Normal 37-47 [facility] Comment on above: Performed By: #### L 500.3400, L501.4020, L500.2500 #### [facility] [address] [place], [address] Hemoglobin (Bld) [Mass/Vol] 12.7 g/dL Normal 12.0-15.0 [facility] Comment on above: Performed By: #### L 500.3400, L501.4020, L500.2500 #### [facility] [address] [place], [address] IG% 0.700 Normal 0.0-0.9 [facility] Comment on above: Result Comment: IG% - Immature Granulocytes (promyelocytes, myelocytes and metamyelocytes) > 1% indicates that a LEFT SHIFT is Present. Performed By: #### L 500.3400, L501.4020, L500.2500 #### [facility] [address] [place], [address] Lymphocytes/100 WBC (Bld) 22.4 % Normal 19-41 [facility] Comment on above: Performed By: #### L 500.3400, L501.4020, L500.2500 #### [facility] [address] [place], [address] MCH (RBC) [Entitic mass] 30.7 pg Normal 27.0-32.0 [facility] Comment on above: Performed By: #### L 500.3400, L501.4020, L500.2500 #### [facility] [address] [place], [address] MCHC (RBC) [Mass/Vol] 30.3 g/dL Low 32-36 [facility] Comment on above: Performed By: #### L 500.3400, L501.4020, L500.2500 #### [facility] [address] [place], [address] MCV (RBC) [Entitic vol] 101.2 fL High 81-99 [facility] Comment on above: Performed By: #### L 500.3400, L501.4020, L500.2500 #### [facility] [address] [place], [address] Monocytes/100 WBC (Bld) 12.2 % High 0-10 [facility] Comment on above: Performed By: #### L 500.3400, L501.4020, L500.2500 #### [facility] [address] [place], [address] Neutrophils/100 WBC (Bld) 63.9 % Normal 47-70 [facility] Comment on above: Performed By: #### L 500.3400, L501.4020, L500.2500 #### [facility] [address] [place], [address] Nucleated RBC (Bld) [#/Vol] 0 10*3/uL Normal 0-5 [facility] Comment on above: Performed By: #### L 500.3400, L501.4020, L500.2500 #### [facility] [address] [place], [address] Platelet mean volume (Bld) [Entitic vol] 10.2 fL Normal 6.2-12.0 [facility] Comment on above: Performed By: #### L 500.3400, L501.4020, L500.2500 #### [facility] [address] [place], [address] Platelets (Bld) [#/Vol] 223 10*3/uL Normal 150-450 [facility] Comment on above: Performed By: #### L 500.3400, L501.4020, L500.2500 #### [facility] [address] [place], [address] RBC (Bld) [#/Vol] 4.14 10*6/uL Low 4.2-5.4 [facility] Comment on above: Performed By: #### L 500.3400, L501.4020, L500.2500 #### [facility] [address] [place], [address] RDW SD 50.4 fl High 35.1-43.9 [facility] Comment on above: Performed By: #### L 500.3400, L501.4020, L500.2500 #### [facility] [address] [place], [address] WBC (Bld) [#/Vol] 9.0 10*3/uL Normal 4.4-11.0 [facility] Comment on above: Performed By: #### L 500.3400, L501.4020, L500.2500 #### [facility] [address] [place], [address] Basic Metabolic Profile (BMP )on 06-08-2024 BUN/CRE 48.8 RATIO High 10-20 [facility] Comment on above: Performed By: #### L 501.5200, L500.2500, L100.0100, L501.2300 #### [facility] [address] [place], [address] CA,Total 9.2 mg/dL Normal 8.5-10.1 [facility] Comment on above: Performed By: #### L 501.5200, L500.2500, L100.0100, L501.2300 #### [facility] [address] [place], [address] Chloride [Moles/Vol] 87 mmol/L Low 98-107 [facility] Comment on above: Performed By: #### L 501.5200, L500.2500, L100.0100, L501.2300 #### [facility] [address] [place], [address] CO2 [Moles/Vol] mmol/L Invalid Interpretation Code 21.0-32.0 [facility] Comment on above: Result Comment: Crit ical Result(s) Called at: 09:03:54 06/08/2024 by: JOZEF CROW to Maria Fernanda Patel. Results read back by same. Performed By: #### L 501.5200, L500.2500, L100.0100, L501.2300 #### [facility] [address] [place], [address] Creatinine [Mass/Vol] 0.49 mg/dL Low 0.55-1.02 [facility] Comment on above: Result Comment: The validity of the calculated GFR GFRAA in patients over 70 years has not been determined. Clinical correlation is essential. Performed By: #### L 501.5200, L500.2500, L100.0100, L501.2300 #### [facility] [address] [place], [address] ECRCL 84.42 ml/min Normal [facility] Comment on above: Performed By: #### L 501.5200, L500.2500, L100.0100, L501.2300 #### [facility] [address] [place], [address] EST GFR - AA 162 mL/min Normal >60 [facility] Comment on above: Result Comment: Afri can [facility] GFR Calc Performed By: #### L 501.5200, L500.2500, L100.0100, L501.2300 #### [facility] [address] [place], [address] GAP TNP Normal 5-15 [facility] Comment on above: Performed By: #### L 501.5200, L500.2500, L100.0100, L501.2300 #### [facility] [address] [place], [address] GFR/1.73 sq M.predicted among non-blacks MDRD (S/P/Bld) [Vol rate/Area] 134 mL/min/{1.73_m2} Normal >60 [facility] Comment on above: Result Comment: Non- GFR Calc Performed By: #### L 501.5200, L500.2500, L100.0100, L501.2300 #### [facility] [address] [place], [address] Glucose [Mass/Vol] 95 mg/dL Normal 74-106 [facility] Comment on above: Performed By: #### L 501.5200, L500.2500, L100.0100, L501.2300 #### [facility] [address] [place], [address] Potassium [Moles/Vol] 3.7 mmol/L Normal 3.5-5.1 [facility] Comment on above: Performed By: #### L 501.5200, L500.2500, L100.0100, L501.2300 #### [facility] [address] [place], [address] Sodium [Moles/Vol] 141 mmol/L Normal 136-145 [facility] Comment on above: Performed By: #### L 501.5200, L500.2500, L100.0100, L501.2300 #### [facility] [address] [place], [address] Urea nitrogen [Mass/Vol] 24 mg/dL High 7-18 [facility] [facility] Comment on above: Performed By: #### L 501.5200, L500.2500, L100.0100, L501.2300 #### [facility] [address] [place], [address] CBC W/Diff, Automatedon 01-0 2-2024 Absolute Lymph 0.59 X10 3/uL Low 0.83-4.51 [facility] Comment on above: Performed By: #### L 501.5200, L500.2500, L100.0100, L501.2300 #### [facility] [address] [place], [address] Absolute Neut 7.7 X10 3/uL Normal 2.0-7.7 [facility] Comment on above: Performed By: #### L 501.5200, L500.2500, L100.0100, L501.2300 #### [facility] [address] [place], [address] Basophils/100 WBC (Bld) 0.1 % Normal 0-1 [facility] Comment on above: Performed By: #### L 501.5200, L500.2500, L100.0100, L501.2300 #### [facility] [address] [place], [address] Eosinophils/100 WBC (Bld) 0.0 % Normal 0-5 [facility] Comment on above: Performed By: #### L 501.5200, L500.2500, L100.0100, L501.2300 #### [facility] [address] [place], [address] Erythrocyte distribution width (RBC) [Ratio] 13.2 % Normal 11.6-14.6 [facility] Comment on above: Performed By: #### L 501.5200, L500.2500, L100.0100, L501.2300 #### [facility] [address] [place], [address] Hematocrit (Bld) [Volume fraction] 40.7 % Normal 37-47 [facility] Comment on above: Performed By: #### L 501.5200, L500.2500, L100.0100, L501.2300 #### [facility] [address] [place], [address] Hemoglobin (Bld) [Mass/Vol] 12.1 g/dL Normal 12.0-15.0 [facility] Comment on above: Performed By: #### L 501.5200, L500.2500, L100.0100, L501.2300 #### [facility] [address] [place], [address] IG% 0.900 Normal 0.0-0.9 [facility] Comment on above: Result Comment: IG% - Immature Granulocytes (promyelocytes, myelocytes and metamyelocytes) > 1% indicates that a LEFT SHIFT is Present. Performed By: #### L 501.5200, L500.2500, L100.0100, L501.2300 #### [facility] [address] [place], [address] Lymphocytes/100 WBC (Bld) 6.4 % Low 19-41 [facility] Comment on above: Performed By: #### L 501.5200, L500.2500, L100.0100, L501.2300 #### [facility] [address] [place], [address] MCH (RBC) [Entitic mass] 30.0 pg Normal 27.0-32.0 [facility] Comment on above: Performed By: #### L 501.5200, L500.2500, L100.0100, L501.2300 #### [facility] [address] [place], [address] MCHC (RBC) [Mass/Vol] 29.7 g/dL Low 32-36 [facility] Comment on above: Performed By: #### L 501.5200, L500.2500, L100.0100, L501.2300 #### [facility] [address] [place], [address] MCV (RBC) [Entitic vol] 101.0 fL High 81-99 [facility] Comment on above: Performed By: #### L 501.5200, L500.2500, L100.0100, L501.2300 #### [facility] [address] [place], [address] Monocytes/100 WBC (Bld) 10.0 % Normal 0-10 [facility] Comment on above: Performed By: #### L 501.5200, L500.2500, L100.0100, L501.2300 #### [facility] [address] [place], [address] Neutrophils/100 WBC (Bld) 82.6 % High 47-70 [facility] Comment on above: Performed By: #### L 501.5200, L500.2500, L100.0100, L501.2300 #### [facility] [address] [place], [address] Nucleated RBC (Bld) [#/Vol] 0 10*3/uL Normal 0-5 [facility] Comment on above: Performed By: #### L 501.5200, L500.2500, L100.0100, L501.2300 #### [facility] [address] [place], [address] Platelet mean volume (Bld) [Entitic vol] 9.9 fL Normal 6.2-12.0 [facility] Comment on above: Performed By: #### L 501.5200, L500.2500, L100.0100, L501.2300 #### [facility] [address] [place], [address] Platelets (Bld) [#/Vol] 214 10*3/uL Normal 150-450 [facility] Comment on above: Performed By: #### L 501.5200, L500.2500, L100.0100, L501.2300 #### [facility] [address] [place], [address] RBC (Bld) [#/Vol] 4.03 10*6/uL Low 4.2-5.4 [facility] Comment on above: Performed By: #### L 501.5200, L500.2500, L100.0100, L501.2300 #### [facility] [address] [place], [address] RDW SD 49.1 fl High 35.1-43.9 [facility] Comment on above: Performed By: #### L 501.5200, L500.2500, L100.0100, L501.2300 #### [facility] [address] [place], [address] WBC (Bld) [#/Vol] 9.3 10*3/uL Normal 4.4-11.0 [facility] Comment on above: Performed By: #### L 501.5200, L500.2500, L100.0100, L501.2300 #### [facility] [address] [place], [address] Consultation - Intensiviston 06-08-2024 Consultation - Inspector Set Up And Lay Out [facility] Medical Records Department [address] [facility] [place] [address] Consultation - Inspector Set Up And Lay Out 06/08/24 1035 MR#: [id number] Acct: [id number] Name: KENDRA BUITRAGO Rep #: [id number] : 1960 63 From: Wil Cruz DO PCP: Dr. Vu Mullins MD Status:ADM IN Location: [place] [address] Assessment Plan Assessment/Plan (1) Acute exacerbation of chronic obstructive pulmonary disease (COPD): PLAN: Plan RECOMMENDATIONS: 1. Continue supplemental oxygen to maintain saturations at or above 90%. 2. Agree with empiric PAP therapy with naps and nightly. 3. Continue scheduled bronchodilators and IV steroids. 4. Continue empiric antibiotics. 5. Awaiting results of echocardiogram. 6. Check respiratory viral panel. 7. Continue appropriate DVT prophylaxis. IMPRESSIONS: 1. Acute on chronic combined respiratory failure Most likely multifactorial with underlying advanced age COPD and possible diastolic heart failure contributing. The patient is followed routinely by Dr. Mackenzie of pulmonary medicine and has a baseline oxygen requirement of 4 L/min. She is already on a triple therapy inhaler regimen at her baseline. For now, I agree with continuing current medical therapy including antibiotics, bronchodilators and steroids. CTA chest ruled out pulmonary embolism. Given concerns for pulmonary edema, echocardiogram is currently pending. In the interim, will check respiratory viral panel. Otherwise, continue current supportive care. 2. Chronic tobacco dependency/hypertensio n/depression/anxiety Complicates care, management, recovery and prognosis. Continue home medications as indicated. Smoking cessation is strongly advised. This note was generated with [employer] dictation software. It may contain incorrect words, spelling, and punctuation that were not noted in checking the note before signing. HPI Consult Data Date of Consult: 06/08/24 HPI Narrative Reason for Consultation: COPD exacerbation HPI Narrative: The patient is a 63-year-old female, with a history as outlined below, who presented to the emergency department on June 07 with worsening shortness of breath. The patient has a known history of advanced age COPD and chronic hypoxemic respiratory failure, for which she follows with Dr. Mackenzie pulmonary medicine. The patient does have a current tobacco abuse history, indicating that she smokes 1 to 2 cigarettes/day. She is on a triple therapy inhaler regimen at her baseline. On presentation to the emergency department, the patient was documented to be afebrile and hemodynamically stable. Laboratory evaluation revealed a normal white blood cell count. Due to her presenting respiratory distress, the patient was placed on BiPAP therapy. Her initial ABG demonstrated a pH of 7.28 with a pCO2 113 and pO2 of 21. Her chemistry profile was notable for an elevated bicarbonate of greater than 45 with a normal creatinine. Troponin was negative. BNP was only mildly elevated at 115. COVID, influenza and RSV PCR's were negative. Blood cultures were collected. CTA chest showed no evidence for pulmonary embolism, but did demonstrate significant bilateral emphysematous changes and a small right pleural effusion. The patient was initially placed on BiPAP therapy but has since been weaned to heated high flow oxygen. The patient does report some overall interval improvement in her breathing quality over the last 24 hours. She remains on antimicrobials, bronchodilators and steroids. [facility] Medical History COPD (chronic obstructive pulmonary disease) Wears glasses History of steroid therapy Easy bruising Restless legs Back pain Heartburn Smoker On home oxygen therapy Shortness of breath on exertion Leg cramps History of pain when walking Hypertension Home Medications ???Medication ???Instructions ???Recorded ???Last Taken ???Type albuterol sulfate 90 mcg/actuation 1 puff inhalation Q6H PRN SOB 09/19/21 Unknown History aerosol inhaler calcium 600 mg (as 1 tab PO MOWEFR 09/19/21 Unknown History carbonate)-vitamin D3 10 mcg (400 unit) tablet (Calcium 600 + D(3)) fluticasone fur. 100 mcg-umeclid 1 inh inhalation DAILY 09/19/21 Unknown History 62.5 mcg-vilant 25 mcg inhalat.powder (Trelegy Ellipta) lisinopril 20 1 tab PO DAILY 09/19/21 09/24/21 08:00 History mg-hydrochlorothiazide 25 mg tablet naproxen sodium 220 mg tablet 220 mg PO BID PRN Pain 09/19/21 Unknown History (Aleve) omega 9-tcl-euq-fish oil 1,200 mg 1,200 cap PO DAILY 09/19/21 Unknown History (144 mg-216 mg) capsule (Fish Oil) simethicone 80 mg chewable tablet 80 mg PO QHS PRN Indigestion 09/19/21 Unknown History prednisone 10 mg tablet 10 mg PO DAILY #32 tabs 01/22/23 Unknown Rx sertraline 100 mg tablet 100 mg PO DAILY mood 06/08/24 Unknown History (more content not included)... Normal [facility] Hemoglobin A1con 06-08-2024 HbA1c (Bld) [Mass fraction] 6.3 % High 3.8-5.6 [facility] Comment on above: Order Comment: 'TROP ' Serial specimen #1, #2 or #3: 1 Result Comment: Norm al < 5.7 % Prediabetic 5.7 - 6.4 % Diabetic >or= 6.5 % Please note range changes. Performed By: #### L 500.3400, L501.4020, L500.2500 #### [facility] [address] [place], [address] Magnesiumon 06-08-2024 Magnesium [Mass/Vol] 2.0 mg/dL Normal 1.6-2.6 [facility] Comment on above: Performed By: #### L 500.3400, L501.4020, L500.2500 #### [facility] [address] [place], [address] Phosphoruson 06-08-2024 Phosphate [Mass/Vol] 3.1 mg/dL Normal 2.5-4.9 [facility] Comment on above: Performed By: #### L 500.3400, L501.4020, L500.2500 #### [facility] [address] [place], [address] Procalcitoninon 06-08-2024 Procalcitonin 0.06 ng/mL Normal 0.00-0.09 [facility] Comment on above: Result Comment: A procalcitonin (PCT) level above 2.0 ng/mL on the first day of ICU admission is associated with a high risk for progression to severe sepsis and/or septic shock. A PCT level below 0.5 ng/mL on the first day of ICU admission is associated with a low risk for progression to severe and/or septic shock. Note: Concentrations <0.5 ng/mL do not exclude an infection on account of localized infections (without systemic signs) which can be associated with such low concentrations, or a systemic infection in its initial stages (<6 hours). Furthermore, increased procalcitonin can occur without infection. PCT concentrations between 0.5 and 2.0 ng/mL should be interpreted taking into account the patient's history. It is recommended to retest PCT within 6-24 hours if any concentrations <2 ng/mL are obtained. Performed By: #### L 100.0100 #### [facility] [address] [place], [address] RESPIRATORY PANEL MOLECULARo n 06-08-2024 RP PANEL Normal Reference Ran ge = Not Detected Resp path DNA+RNA Pnl Resp TRAN+probe Nucleic acid amplification test method ADENOVIRUS Not Detected INFLUENZA A Not Detected INFLUENZA A (SUBTYPE H1) Not Detected INFLUENZA A (SUBTYPE H3) Not Detected INFLUENZA B Not Detected HUMAN METAPHNEUMO Not Detected PARAINFLUENZA 1 Not Detected PARAINFLUENZA 2 Not Detected PARAINFLUENZA 3 Not Detected PARAINFLUENZA 4 Not Detected RHINOVIRUS Not Detected RSV A Not Detected RSV B Not Detected Normal [facility] Comment on above: Performed By: #### L 100.0100 #### [facility] [address], [address] 12 Lead EKGon 06-07-2024 12 Lead EKG [facility] Cardiovascular Services [address] [place] [address] 12 Lead EKG 06/07/24 1015 MR#: [id number] Acct: [id number] Name: KENDRA BUITRAGO Rep #: [id number] : 1960 63 From: John Paul Groves MD Attending Dr: Dr. Jim Gill MD Status: ADM IN Ordering Dr: Jason Khanna DO Date: 06/07/24 Location: [facility] Sex: F C Admitted: 06/07/24 Test Reason : Blood Pressure : */* mmHG Vent. Rate : 78 BPM Atrial Rate : 78 BPM P-R Int : 138 ms QRS Dur : 90 ms QT Int : 374 ms P-R-T Axes : 68 13 73 degrees QTcB Int : 426 ms Sinus rhythm with marked sinus arrhythmia with occasional Premature ventricular complexes Otherwise normal ECG Confirmed by RU DAVIS, JOHN PAUL ([id number]), editor news JANETT ATKINSON ([id number]) on 06/09/2024 6:23:46 AM Referred By: Confirmed By: JOHN PAUL GROVES MD 06/09/24 0623 Date John Paul Groves MD CC: Dr. Jason Khanna DO; Dr. Vu Mullins MD; Dr. Jim Gill MD Signed Normal [facility] BNP,B-Type NATRIURETIC PEPTI Nader 06-07-2024 Natriuretic peptide B (Bld) [Mass/Vol] 115.4 pg/mL High 0-100 [facility] Comment on above: Order Comment: PER I CU NURSE-ADD ON TO ER BW-CALLED @7258 Performed By: #### L 100.0100 #### [facility] [address] [place], [address] Basic Metabolic Profile (BMP )on 06-07-2024 BUN/CRE 38.2 RATIO High 10-20 [facility] Comment on above: Order Comment: 'TROP ' Serial specimen #1, #2 or #3: 1 Performed By: #### L 500.3400, L501.4020, L500.2500 #### [facility] [address] [place], [address] CA,Total 8.9 mg/dL Normal 8.5-10.1 [facility] Comment on above: Order Comment: 'TROP ' Serial specimen #1, #2 or #3: 1 Performed By: #### L 500.3400, L501.4020, L500.2500 #### [facility] [address] [place], [address] Chloride [Moles/Vol] 89 mmol/L Low 98-107 [facility] Comment on above: Order Comment: 'TROP ' Serial specimen #1, #2 or #3: 1 Performed By: #### L 500.3400, L501.4020, L500.2500 #### [facility] [address] [place], [address] CO2 [Moles/Vol] mmol/L Invalid Interpretation Code 21.0-32.0 [facility] Comment on above: Order Comment: 'TROP ' Serial specimen #1, #2 or #3: 1 Result Comment: Crit ical Result(s) Called at: 10:44:41 06/07/2024 by: Jones Carlisle RN (ER). Results read back by same. Performed By: #### L 500.3400, L501.4020, L500.2500 #### [facility] [address] [place], [address] Creatinine [Mass/Vol] 0.63 mg/dL Normal 0.55-1.02 [facility] Comment on above: Order Comment: 'TROP ' Serial specimen #1, #2 or #3: 1 Result Comment: The validity of the calculated GFR GFRAA in patients over 70 years has not been determined. Clinical correlation is essential. Performed By: #### L 500.3400, L501.4020, L500.2500 #### [facility] [address] [place], [address] ECRCL 81.99 ml/min Normal [facility] Comment on above: Order Comment: 'TROP ' Serial specimen #1, #2 or #3: 1 Performed By: #### L 500.3400, L501.4020, L500.2500 #### [facility] [address] [place], [address] EST GFR - AA 122 mL/min Normal >60 [facility] Comment on above: Order Comment: 'TROP ' Serial specimen #1, #2 or #3: 1 Result Comment: Afri can [place] GFR Calc Performed By: #### L 500.3400, L501.4020, L500.2500 #### [facility] [address] [place], [address] GAP TNP Normal 5-15 [facility] Comment on above: Order Comment: 'TROP ' Serial specimen #1, #2 or #3: 1 Performed By: #### L 500.3400, L501.4020, L500.2500 #### [facility] [address] [place], [address] GFR/1.73 sq M.predicted among non-blacks MDRD (S/P/Bld) [Vol rate/Area] 101 mL/min/{1.73_m2} Normal >60 [facility] Comment on above: Order Comment: 'TROP ' Serial specimen #1, #2 or #3: 1 Result Comment: Non- GFR Calc Performed By: #### L 500.3400, L501.4020, L500.2500 #### [facility] [address] [place], [address] Glucose [Mass/Vol] 260 mg/dL High 74-106 [facility] Comment on above: Order Comment: 'TROP ' Serial specimen #1, #2 or #3: 1 Result Comment: Gluc ose result greater than or equal to 200 mg/dL suggests DIABETES MELLITUS per A.D.A. criteria. Performed By: #### L 500.3400, L501.4020, L500.2500 #### [facility] [address] [place], [address] Potassium [Moles/Vol] 3.8 mmol/L Normal 3.5-5.1 [facility] Comment on above: Order Comment: 'TROP ' Serial specimen #1, #2 or #3: 1 Performed By: #### L 500.3400, L501.4020, L500.2500 #### [facility] [address] [place], [address] Sodium [Moles/Vol] 142 mmol/L Normal 136-145 [facility] Comment on above: Order Comment: 'TROP ' Serial specimen #1, #2 or #3: 1 Performed By: #### L 500.3400, L501.4020, L500.2500 #### [facility] [address] [place], [address] Urea nitrogen [Mass/Vol] 24 mg/dL High 7-18 [facility] Comment on above: Order Comment: 'TROP ' Serial specimen #1, #2 or #3: 1 Performed By: #### L 500.3400, L501.4020, L500.2500 #### [facility] [address] [place], [address] Blood Gases by [facility] 025 LUCIO TEST Positive Normal [facility] Comment on above: Performed By: #### L 100.0100 #### [facility] [address] [place], [address] BE > 30 High -2 to +2 [facility] Comment on above: Performed By: #### L 100.0100 #### [facility] [address] [place], [address] Blood Gas Type ART Normal [facility] Comment on above: Performed By: #### L 100.0100 #### [facility] [address] [place], [address] FI02 70.0 Normal [facility] Comment on above: Performed By: #### L 100.0100 #### [facility] [address] [place], [address] HCO3 (Bld) [Moles/Vol] 57.2 mmol/L High 22-26 [facility] Comment on above: Performed By: #### L 100.0100 #### [facility] [address] [place], [address] Mode Not entered Normal [facility] Comment on above: Performed By: #### L 100.0100 #### [facility] [address] [place], [address] O2 Delivery Dev HFNC Normal [facility] Comment on above: Performed By: #### L 100.0100 #### [facility] [address] [place], [address] pCO2 95.5 mmHg Invalid Interpretation Code 35-45 [facility] Comment on above: Performed By: #### L 100.0100 #### [facility] [address] [place], [address] pH (Bld) 7.39 [pH] Normal 7.35-7.45 [facility] Comment on above: Performed By: #### L 100.0100 #### [facility] [address] [place], [address] PO2 71 mmHG Low 75-100 [facility] Comment on above: Performed By: #### L 100.0100 #### [facility] [address] [place], [address] Read Back By Yes [facility] Comment on above: Performed By: #### L 100.0100 #### [facility] [address] [place], [address] [facility] Comment on above: Performed By: #### L 100.0100 #### [facility] [address] [place], [address] SITE L Radial [facility] Comment on above: Performed By: #### L 100.0100 #### [facility] [address] [place], [address] SO2 92 Low 95-99 [facility] Comment on above: Performed By: #### L 100.0100 #### [facility] [address] [place], [address] Time Given 21:53:[address] [facility] Comment on above: Performed By: #### L 100.0100 #### [facility] [address] [place], [address] TOTAL CO2 > [address] [facility] Comment on above: Performed By: #### L 100.0100 #### [facility] [address] [place], [address] LUCIO TEST Positive [facility] Comment on above: Performed By: #### L 500.3400, L501.4020, L500.2500 #### [facility] [address] [place], [address] Base excess Calc (Bld) [Moles/Vol] 27 mmol/L High -2 to +2 [facility] Comment on above: Performed By: #### L 500.3400, L501.4020, L500.2500 #### [facility] [address] [place], [address] Blood Gas Type ART Normal [facility] Comment on above: Performed By: #### L 500.3400, L501.4020, L500.2500 #### [facility] [address] [place], [address] FI02 100.0 Normal [facility] Comment on above: Performed By: #### L 500.3400, L501.4020, L500.2500 #### [facility] [address] [place], [address] HCO3 (Bld) [Moles/Vol] 53.3 mmol/L High 22-26 [facility] Comment on above: Performed By: #### L 500.3400, L501.4020, L500.2500 #### [facility] [address] [place], [address] Mode Not entered Normal [facility] Comment on above: Performed By: #### L 500.3400, L501.4020, L500.2500 #### [facility] [address] [place], [address] O2 Delivery Dev BiPAP Normal [facility] Comment on above: Performed By: #### L 500.3400, L501.4020, L500.2500 #### [facility] [address] [place], [address] pCO2 113.1 mmHg Invalid Interpretation Code 35-45 [facility] Comment on above: Performed By: #### L 500.3400, L501.4020, L500.2500 #### [facility] [address] [place], [address] PEEP 8 Normal [facility] Comment on above: Performed By: #### L 500.3400, L501.4020, L500.2500 #### [facility] [address] [place], [address] pH (Bld) 7.28 [pH] Low 7.35-7.45 [facility] Comment on above: Performed By: #### L 500.3400, L501.4020, L500.2500 #### [facility] [address] [place], [address] PO2 21 mmHG Invalid Interpretation Code 75-100 [facility] Comment on above: Performed By: #### L 500.3400, L501.4020, L500.2500 #### [facility] [address] [place], [address] Read Back By Yes [facility] Comment on above: Performed By: #### L 500.3400, L501.4020, L500.2500 #### [facility] [address] [place], [address] Results To hoene Normal [facility] Comment on above: Performed By: #### L 500.3400, L501.4020, L500.2500 #### [facility] [address] [place], [address] SITE R Radial Normal [facility] Comment on above: Performed By: #### L 500.3400, L501.4020, L500.2500 #### [facility] [address] [place], [address] SO2 25 Low 95-99 [facility] Comment on above: Performed By: #### L 500.3400, L501.4020, L500.2500 #### [facility] [address] [place], [address] Time Given 10:07:[address] [facility] Comment on above: Performed By: #### L 500.3400, L501.4020, L500.2500 #### [facility] [address] [place], [address] TOTAL CO2 > 50 Normal [facility] Comment on above: Performed By: #### L 500.3400, L501.4020, L500.2500 #### [facility] [address] [place], [address] CBC W/Diff, Automatedon 01-0 Absolute Lymph 1.50 X10 3/uL Normal 0.83-4.51 [facility] Comment on above: Performed By: #### L 500.3400, L501.4020, L500.2500 #### [facility] [address] [place], [address] Absolute Neut 7.0 X10 3/uL Normal 2.0-7.7 [facility] Comment on above: Performed By: #### L 500.3400, L501.4020, L500.2500 #### [facility] [address] [place], [address] Basophils/100 WBC (Bld) 0.9 % Normal 0-1 [facility] Comment on above: Performed By: #### L 500.3400, L501.4020, L500.2500 #### [facility] [address] [place], [address] Eosinophils/100 WBC (Bld) 0.7 % Normal 0-5 [facility] Comment on above: Performed By: #### L 500.3400, L501.4020, L500.2500 #### [facility] [address] [place], [address] Erythrocyte distribution width (RBC) [Ratio] 13.6 % Normal 11.6-14.6 [facility] Comment on above: Performed By: #### L 500.3400, L501.4020, L500.2500 #### [facility] [address] [place], [address] Hematocrit (Bld) [Volume fraction] 48.2 % High 37-47 [facility] Comment on above: Performed By: #### L 500.3400, L501.4020, L500.2500 #### [facility] [address] [place], [address] Hemoglobin (Bld) [Mass/Vol] 13.7 g/dL Normal 12.0-15.0 [facility] Comment on above: Performed By: #### L 500.3400, L501.4020, L500.2500 #### [facility] [address] [place], [address] IG% 3.000 High 0.0-0.9 [facility] Comment on above: Result Comment: IG% - Immature Granulocytes (promyelocytes, myelocytes and metamyelocytes) > 1% indicates that a LEFT SHIFT is Present. Performed By: #### L 500.3400, L501.4020, L500.2500 #### [facility] [address] [place], [address] Lymphocytes/100 WBC (Bld) 15.6 % Low 19-41 [facility] Comment on above: Performed By: #### L 500.3400, L501.4020, L500.2500 #### [facility] [address] [place], [address] MCH (RBC) [Entitic mass] 30.1 pg Normal 27.0-32.0 [facility] Comment on above: Performed By: #### L 500.3400, L501.4020, L500.2500 #### [facility] [address] [place], [address] MCHC (RBC) [Mass/Vol] 28.4 g/dL Low 32-36 [facility] Comment on above: Performed By: #### L 500.3400, L501.4020, L500.2500 #### [facility] [address] [place], [address] MCV (RBC) [Entitic vol] 105.9 fL High 81-99 [facility] Comment on above: Performed By: #### L 500.3400, L501.4020, L500.2500 #### [facility] [address] [place], [address] Monocytes/100 WBC (Bld) 7.2 % Normal 0-10 [facility] Comment on above: Performed By: #### L 500.3400, L501.4020, L500.2500 #### [facility] [address] [place], [address] Neutrophils/100 WBC (Bld) 72.6 % High 47-70 [facility] Comment on above: Performed By: #### L 500.3400, L501.4020, L500.2500 #### [facility] [address] [place], [address] Nucleated RBC (Bld) [#/Vol] 0 10*3/uL Normal 0-5 [facility] Comment on above: Performed By: #### L 500.3400, L501.4020, L500.2500 #### [facility] [address] [place], [address] Platelet mean volume (Bld) [Entitic vol] 9.7 fL Normal 6.2-12.0 [facility] Comment on above: Performed By: #### L 500.3400, L501.4020, L500.2500 #### [facility] [address] [place], [address] Platelets (Bld) [#/Vol] 221 10*3/uL Normal 150-450 [facility] Comment on above: Performed By: #### L 500.3400, L501.4020, L500.2500 #### [facility] [address] [place], [address] RBC (Bld) [#/Vol] 4.55 10*6/uL Normal 4.2-5.4 [facility] Comment on above: Performed By: #### L 500.3400, L501.4020, L500.2500 #### [facility] [address] [place], [address] RDW SD 53.3 fl High 35.1-43.9 [facility] Comment on above: Performed By: #### L 500.3400, L501.4020, L500.2500 #### [facility] [address] [place], [address] WBC (Bld) [#/Vol] 9.6 10*3/uL Normal 4.4-11.0 [facility] Comment on above: Performed By: #### L 500.3400, L501.4020, L500.2500 #### [facility] [address] [place], [address] CTA Chest W/WO Contraston CTA Chest W/WO Contrast [facility] Imaging Services [address] [place] [address] CTA Chest W/WO Contrast MR#: [id number] Acct: [id number] Name: KENDRA BUITRAGO Rep #: [id number] : 1960 F 63 From: David Magana MD PCP: Dr. Vu Mullins MD Status: [facility] ER Study: CTA Chest W/WO Contrast Date of Exam: 06/07/24 Exam# [id number] Ordering Dr: Jason Khanna DO [id number] EXAM: CT ANGIOGRAPHY CHEST WITH INTRAVENOUS CONTRAST CLINICAL INDICATION: pulmonary embolism, copd, sob TECHNIQUE: Helically acquired angiography images were obtained of the chest with intravenous contrast. This CT exam was performed using one or more of the following dose reduction techniques: automated exposure control, adjustment of the mA and/or kV according to patient size, and/or use of iterative reconstruction technique. MIP reconstructed images were created and reviewed. CONTRAST: IV 100mL Isovue-370 COMPARISON: Chest radiograph 06/07/2024, CT chest 05/09/2022 FINDINGS: PULMONARY ARTERIES: Normal. Normal in caliber. No evidence of pulmonary embolism. AORTA: Normal. Normal in caliber. No evidence of dissection. GREAT VESSELS OF AORTIC ARCH: Normal. Normal in caliber. No evidence of dissection. LUNGS AND PLEURAL SPACES: Small right pleural effusion with mild compression atelectasis of the right lower lobe. The diffuse centrilobular pulmonary emphysema again noted as well as 8.5 cm bullous changes of the right lower lobe. Interstitial thickening within both upper lobes of lungs suggestive of pulmonary edema. No mass. No pneumothorax. HEART: Normal. No pericardial effusion. Normal heart size. Coronary artery calcification present. MEDIASTINUM: Normal. No mediastinal or hilar adenopathy. Esophagus is unremarkable. No hiatal hernia. BONES/JOINTS: Normal. No suspicious lytic or blastic abnormality. LIVER: Stable hepatic cyst. No specific follow-up indicated. INTRAPERITONEAL SPACE: Minimal ascites within the right upper quadrant. CT/CTA Chest W/WO Contrast IMPRESSION: 1. No evidence of acute pulmonary embolism. 2. Bilateral upper lobe interstitial edema. 3. Extensive pulmonary emphysema. 4. Small right pleural effusion and minimal ascites. Recommendations: Pulmonary emphysema is an independent risk factor for lung cancer. Recommend annual low-dose CT lung cancer screening. Electronically Signed: David Magana MD at 12:27 EST Reading Location ID and State: [address] [place] [address] Tel , Service support , CC: Dr. Jason Khanna DO; Dr. Vu Mullins MD [employer] Rewinder: Signed Normal [facility] Chest 1 View (Portable)on Chest 1 View (Portable) [facility] Imaging Services [address] [place] [address] Chest 1 View (Portable) MR#: [id number] Acct: [id number] Name: KENDRA BUITRAGO Rep #: [id number] : 1960 F 63 From: David Magana MD PCP: Dr. Vu Mullins MD Status: REG ER Study: Chest 1 View (Portable) Date of Exam: 06/07/24 Exam# [id number] Ordering Dr: Jason Khanna DO [id number] EXAM: XR CHEST, 1 VIEW CLINICAL INDICATION: Dyspnea TECHNIQUE: Frontal view of the chest. COMPARISON: XR Chest dated 01/21/2023 FINDINGS: LUNGS AND PLEURAL SPACES: Infiltrate or edema suggested within the right upper lobe. No pleural effusion or pneumothorax. Pulmonary vascular congestion. HEART: Normal heart size. MEDIASTINUM: No mediastinal or hilar mass. BONES/JOINTS: No acute abnormality. RAD/Chest 1 View (Portable) IMPRESSION: Poorly vascular congestion. Focal infiltrate or edema of the right upper lobe. Electronically Signed: David Magana MD at 11:32 EST Reading Location ID and State: [address] [facility] Tel , Service support , CC: Dr. Jason Khanna DO; Dr. Vu Mullins MD [place] [employer]inder: Signed Normal [facility] Echo Completeon 06-07-2024 Echo Complete [facility] Cardiovascular Services [address] [place] [address] Echo Complete 06/08/24 1017 MR#: [id number] Acct: [id number] Name: KENDRA BUITRAGO Rep #: [id number] : 1960 63 From: John Paul Groves MD Attending Dr: Dr. Jim Gill MD Status: ADM IN Ordering Dr: Jim Gill MD Date: 06/07/24 Location: PCU Sex: F C Admitted: 06/07/24 Reason For Study: CONGESTIVE HEART FAILURE Procedure This was a 2D Doppler, Color Flow transthoracic echocardiogram. The study was technically difficult. Patient was on CPAP during exam. Exam performed portable in patient room. Left Ventricle Normal LV size. Mild concentric left ventricular hypertrophy. Left ventricular systolic function is normal. The left ventricular ejection fraction is 60 %. No regional wall motion abnormalities noted. Right Ventricle Normal RV size. Normal systolic function. Atria Normal left atrium. Normal right atrium. Mitral Valve Normal mitral valve. Tricuspid Valve Normal tricuspid valve. Mild (1+) tricuspid valve insufficiency. Pulmonary artery systolic pressure is 40 mmHg. Great Vessels Normal aortic root. Pericardium/Pleural No pericardial effusion. MMode/2D Measurements Calculations LVIDd: 5.0 cm IVSd: 1.4 cm LVOT diam: 1.9 cm LVIDs: 3.0 cm LVPWd: 1.2 cm LVOT area: 2.8 cm2 RVDd: 3.8 cm FS: 39.7 % asc Aorta Diam: 3.5 cm LAV(MOD-bp): 31.5 ml LVAd ap4: 20.4 cm2 LAV(MOD-bp) Indexed: 15.1 ml/m2 LVLd ap4: 7.4 cm LAV(MOD-sp2): 36.3 ml EDV(MOD-sp4): 47.0 ml LAV(MOD-sp4): 26.0 ml EDV(sp4-el): 48.1 ml LVAs ap4: 10.7 cm2 LVLs ap4: 6.2 cm ESV(MOD-sp4): 15.6 ml ESV(sp4-el): 15.7 ml EF(MOD-sp4): 66.8 % EF(sp4-el): 67.3 % SV(MOD-sp4): 31.4 ml SV(MOD-sp2): 40.7 ml LVAd ap2: 20.9 cm2 LVLd ap2: 7.2 cm SI(MOD-sp4): 15.0 ml/m2 SI(MOD-sp2): 19.5 ml/m2 EDV(MOD-sp2): 53.8 ml EDV(sp2-el): 51.5 ml LVAs ap2: 9.6 cm2 LVLs ap2: 6.3 cm ESV(MOD-sp2): 13.1 ml ESV(sp2-el): 12.4 ml EF(MOD-sp2): 75.7 % SV(sp4-el): 32.4 ml Ao sinus diam: 3.[address] Junction: 2.9 cm LA A4 area: 13.2 cm2 LA dimension(2D): 3.8 cm RA A4 area: 17.6 cm2 TAPSE: 1.9 cm Time Measurements MV dec time: 0.26 sec Doppler Measurements Calculations MV E max elva: 116.4 cm/sec Lat Peak E' Elva: 12.1 cm/sec Med Peak E' Elva: 10.0 cm/sec MV A max elva: 105.3 cm/sec E/E' lat: 9.6 E/E' med: 11.6 MV E/A: 1.1 Ao V2 max: 206.2 cm/sec LV V1 max: 155.5 cm/sec MV dec slope: 442.5 cm/sec2 Ao max P.0 mmHg LV V1 max P.7 mmHg Ao V2 mean: 144.7 cm/sec LV V1 mean P.5 mmHg Ao mean P.3 mmHg LV V1 mean: 124.1 cm/sec Ao V2 VTI: 36.3 cm LV V1 VTI: 28.3 cm AV (velocity ratio): 0.78 ALMITA(I,D): 2.2 cm2 ALMITA(V,D): 2.1 cm2 SV(LVOT): 79.4 ml PA V2 max: 123.9 cm/sec TR max elva: 306.8 cm/sec TR max P.6 mmHg ECHO/Echo Complete Interpretation Summary Normal LV size. Left ventricular systolic function is normal. The left ventricular ejection fraction is 60 %. Mild concentric left ventricular hypertrophy. Ordering Physician: Jim Gill Performed By: Falguni Burk RDCS 06/08/24 1243 Date John Paul Groves MD CC: Dr. Vu Mullins MD; Dr. Jim Gill MD Date Dictated: 06/08/24 1017 Date Transcribed: 06/08/24 1243 [place] Rewinder: Signed Normal [facility] Department Summary on 06-07-2024 Emergency Department Summary [facility] Medical Records Department [address] [place] [address] Emergency Department Summary 06/07/24 MR#: [id number] Acct: [id number] Name: KENDRA BUITRAGO Rep #: [id number] : 1960 63 From: Jason Khanna DO PCP: Dr. Vu Mullins MD Status:ADM IN Location: ICU ICU02-1 HPI History of Present Illness Chief Complaint: Shortness of Breath Informant: patient, spouse/S.O. and EMS Narrative Narrative: 63-year-old female with a history of COPD presenting to the emergency room with a chief complaint of dyspnea. EMS was called to the house where they state that they found the patient tripoding and hypoxic. She was given breathing treatments and placed on CPAP. EMS notes end-tidal CO2 up to 60. Patient chronically wears 5 L at home. notes that she has been experiencing rhinorrhea and sinus infection over the past several days. They states that her work of breathing has significantly improved since being put on the CPAP. No reported fever or diarrhea. No vomiting. Has been states that this morning her symptoms did seem to start rather abruptly. She had already been up for the day. [facility] Medical History COPD (chronic obstructive pulmonary disease) Wears glasses History of steroid therapy Easy bruising Restless legs Back pain Heartburn Smoker On home oxygen therapy Shortness of breath on exertion Leg cramps History of pain when walking Hypertension Home Medications ???Medication ???Instructions ???Recorded ???Last Taken ???Type albuterol sulfate 90 mcg/actuation 1 puff inhalation Q6H PRN SOB 09/19/21 Unknown History aerosol inhaler calcium 600 mg (as 1 tab PO MOWEFR 09/19/21 Unknown History carbonate)-vitamin D3 10 mcg (400 unit) tablet (Calcium 600 + D(3)) fluticasone fur. 100 mcg-umeclid 1 inh inhalation DAILY 09/19/21 Unknown History 62.5 mcg-vilant 25 mcg inhalat.powder (Trelegy Ellipta) lisinopril 20 1 tab PO DAILY 09/19/21 09/24/21 08:00 History mg-hydrochlorothiazide 25 mg tablet naproxen sodium 220 mg tablet 220 mg PO BID PRN Pain 09/19/21 Unknown History (Aleve) omega 5-huw-pmo-fish oil 1,200 mg 1,200 cap PO DAILY 09/19/21 Unknown History (144 mg-216 mg) capsule (Fish Oil) simethicone 80 mg chewable tablet 80 mg PO QHS PRN Indigestion 09/19/21 Unknown History prednisone 10 mg tablet 10 mg PO DAILY #32 tabs 01/22/23 Unknown Rx Allergy/AdvReac Type Severity Reaction Status Date / Time Sulfa (Sulfonamide Allergy Angioedema Verified 06/07/24 09:51 Antibiotics) Family History Other Cancer Heart disease Surgical History Hx of colonoscopy Hx of right cataract extraction Hx of left cataract extraction Hx of appendectomy Hx of tonsillectomy Social History Smoking Status: Current some day smoker tobacco type: cigarettes ROS ROS ED Constitutional Constitutional ED: Denies chills or weight loss Eyes Eyes: Denies change in vision or diplopia ENT ENT ED: Reports rhinorrhea; Denies ear pain or sore throat Cardiovascular Cardiovascular: Denies chest pain, orthopnea, palpitations or racing heartbeat Respiratory/Chest Respiratory/Chest: Reports cough, dyspnea and dyspnea on exertion; Denies orthopnea Gastrointestinal Gastrointestinal: Denies abdominal pain, diarrhea, nausea or vomiting Genitourinary Genitourinary ED: Denies dysuria, hematuria or urinary frequency Musculoskeletal Musculoskeletal: Denies arthralgias or myalgias Integumentary Denies abscess or rash Neurologic Neurologic: Denies headache(s) or weakness Psychiatric Psychiatric: Denies anxiety, depression, suicidal ideation or suicidal thoughts Endocrine Endocrinology: Denies polydipsia, polyphagia or polyuria Allergic/Immunologic Allergic/Immunologic ED: Denies mouth swelling, tongue swelling or urticaria EXAM Physical Exam Narrative Exam Narrative: Patient is lethargic but responsive to my voice. She makes intentional movements to wipe her nose. Const Vital Signs: 06/07/24 09:46 06/07/24 09:51 06/07/24 09:55 Temperature 97.8 F Temperature Source Oral Pulse Rate 92 80 Respiratory Rate 29 H 33 H Respiratory Effort Labored Respiratory Depth Normal Respiratory Pattern Gasping Tachypnea Blood Pressure 160/77 H Blood Pressure Mean 104 Pulse Ox 73 75 Oxygen Delivery Method Nasal Cannula Bi-pap Oxygen Flow Rate (L/min) 8 Fraction of Inspired Oxygen (FIO2) 70 100 06/07/24 10:05 06/07/24 10:20 06/07/24 10:50 Temperature Temperature Source Pulse Rate 80 81 81 Respiratory Rate 24 H 17 22 H Respir (more content not included)... Normal [facility] H AND P Exam - Hospitaliston 06-07-2024 H&P Exam - Hospitalist [facility] Medical Records Department [address] [place] [address] H P Exam - Hospitalist 06/07/24 1335 MR#: [id number] Acct: [id number] Name: KENDRA BUITRAGO Rep #: [id number] : 1960 63 From: Jim Gill MD PCP: Dr. Vu Mullins MD Status:ADM IN Location: ICU ICU02-1 HPI - General General Date of Admission: 06/07/24 Date of Service: 06/07/24 Chief Complaint: Shortness of breath HPI Narrative KENDRA BUITRAGO, is a 63 F who presents shortness of breath. Patient has history of COPD and is on 4 L of oxygen at baseline and continues to smoke was brought to the emergency department by the on account of increasing lethargy as well as difficulty breathing. Per patient's who provided much of the history patient has apparently been battling an upper respiratory tract infection a couple of days prior to admission. In the emergency department patient was noted to have significant acute hypoxic and hypercapnic respiratory failure placed on noninvasive ventilation and decision made to admit patient to the intensive care unit for further management [facility] Medical History COPD (chronic obstructive pulmonary disease) Wears glasses History of steroid therapy Easy bruising Restless legs Back pain Heartburn Smoker On home oxygen therapy Shortness of breath on exertion Leg cramps History of pain when walking Hypertension Home Medications ???Medication ???Instructions ???Recorded ???Last Taken ???Type albuterol sulfate 90 mcg/actuation 1 puff inhalation Q6H PRN SOB 09/19/21 Unknown History aerosol inhaler calcium 600 mg (as 1 tab PO MOWEFR 09/19/21 Unknown History carbonate)-vitamin D3 10 mcg (400 unit) tablet (Calcium 600 + D(3)) fluticasone fur. 100 mcg-umeclid 1 inh inhalation DAILY 09/19/21 Unknown History 62.5 mcg-vilant 25 mcg inhalat.powder (Trelegy Ellipta) lisinopril 20 1 tab PO DAILY 09/19/21 09/24/21 08:00 History mg-hydrochlorothiazide 25 mg tablet naproxen sodium 220 mg tablet 220 mg PO BID PRN Pain 09/19/21 Unknown History (Aleve) omega 7-lsg-lqg-fish oil 1,200 mg 1,200 cap PO DAILY 09/19/21 Unknown History (144 mg-216 mg) capsule (Fish Oil) simethicone 80 mg chewable tablet 80 mg PO QHS PRN Indigestion 09/19/21 Unknown History prednisone 10 mg tablet 10 mg PO DAILY #32 tabs 01/22/23 Unknown Rx Allergy/AdvReac Type Severity Reaction Status Date / Time Sulfa (Sulfonamide Allergy Angioedema Verified 06/07/24 09:51 Antibiotics) Family History Other Cancer Heart disease Surgical History Hx of colonoscopy Hx of right cataract extraction Hx of left cataract extraction Hx of appendectomy Hx of tonsillectomy Social History Smoking Status: Current some day smoker tobacco type: cigarettes ROS ROS Narrative Unable to assess given patient lethargy Vital Signs Vital Signs Vital Signs: 06/07/24 09:46 06/07/24 09:51 06/07/24 09:55 Temperature 97.8 F Temperature Source Oral Pulse Rate 92 80 Respiratory Rate 29 H 33 H Respiratory Effort Labored Respiratory Depth Normal Respiratory Pattern Gasping Tachypnea Blood Pressure 160/77 H Blood Pressure Mean 104 Pulse Ox 73 75 Oxygen Delivery Method Nasal Cannula Bi-pap Oxygen Flow Rate (L/min) 8 Fraction of Inspired Oxygen (FIO2) 70 100 06/07/24 10:05 06/07/24 10:20 06/07/24 10:50 Temperature Temperature Source Pulse Rate 80 81 81 Respiratory Rate 24 H 17 22 H Respiratory Effort Respiratory Depth Respiratory Pattern Tachypnea Normal Tachypnea Blood Pressure Blood Pressure Mean Pulse Ox 100 96 Oxygen Delivery Method Oxygen Flow Rate (L/min) Fraction of Inspired Oxygen (FIO2) 70 50 06/07/24 11:00 06/07/24 11:10 06/07/24 12:00 Temperature 98.3 F 98.6 F Temperature Source Temporal Temporal Pulse Rate 82 76 Respiratory Rate 16 18 Respiratory Effort Respiratory Depth Respiratory Pattern Blood Pressure 132/82 H 131/72 H Blood Pressure Mean 98 91 Pulse Ox 95 95 96 Oxygen Delivery Method Bi-pap Bi-pap Bi-pap Oxygen Flow Rate (L/min) Fraction of Inspired Oxygen (FIO2) 06/07/24 12:15 06/07/24 12:30 06/07/24 12:31 Temperature Temperature Source Pulse Rate 89 83 82 Respiratory Rate 25 H 14 16 Respiratory Effort Respiratory Depth Respiratory Pattern Blood Pressure 138/114 H 159/79 H Blood Pressure Mean 122 99 Pulse Ox 93 93 93 Oxygen Delivery Method Oxygen Flow Rate (L/min) Fraction of Inspired Oxygen (FIO2) 01 (more content not included)... Normal [facility] L501.4020on 06-07-2024 TROPONIN-I HS 22 pg/mL Normal 3.0-54.0 [facility] Comment on above: Order Comment: 'TROP ' Serial specimen #1, #2 or #3: 1 Result Comment: Diane cox Note: New Test Units and Gender Specific Reference Ranges. For more information see Policy Stat Procedure [place] High Sensitivity Troponin (TNIH) and attachments. Performed By: #### L 500.3400, L501.4020, L500.2500 #### [facility] [address] [place], [address] Liver Profileon 06-07-2024 Albumin [Mass/Vol] 3.6 g/dL Normal 3.2-5.0 [facility] Comment on above: Order Comment: 'TROP ' Serial specimen #1, #2 or #3: 1 Performed By: #### L 500.3400, L501.4020, L500.2500 #### [facility] [address] [place], [address] ALK P 69 U/L Normal 45-117 [facility] Comment on above: Order Comment: 'TROP ' Serial specimen #1, #2 or #3: 1 Performed By: #### L 500.3400, L501.4020, L500.2500 #### [facility] [address] [place], [address] ALT [Catalytic activity/Vol] 67 U/L High 13-56 [facility] Comment on above: Order Comment: 'TROP ' Serial specimen #1, #2 or #3: 1 Performed By: #### L 500.3400, L501.4020, L500.2500 #### [facility] [address] [place], [address] AST [Catalytic activity/Vol] 24 U/L Normal 15-37 [facility] Comment on above: Order Comment: 'TROP ' Serial specimen #1, #2 or #3: 1 Performed By: #### L 500.3400, L501.4020, L500.2500 #### [facility] [address] [place], [address] Bilirubin [Mass/Vol] 0.60 mg/dL Normal 0.20-1.00 [facility] Comment on above: Order Comment: 'TROP ' Serial specimen #1, #2 or #3: 1 Result Comment: For patients on eltrombopag therapy, use of Dimension [place] TBIL is not recommended. Performed By: #### L 500.3400, L501.4020, L500.2500 #### [facility] [address] [place], [address] Bilirubin.direct [Mass/Vol] 0.18 mg/dL Normal 0.00-0.30 [facility] Comment on above: Order Comment: 'TROP ' Serial specimen #1, #2 or #3: 1 Performed By: #### L 500.3400, L501.4020, L500.2500 #### [facility] [address] [place], [address] Globulin (S) [Mass/Vol] 3.6 g/dL Normal 2.2-4.2 [facility] Comment on above: Order Comment: 'TROP ' Serial specimen #1, #2 or #3: 1 Performed By: #### L 500.3400, L501.4020, L500.2500 #### [facility] [address] [place], [address] T PROT 7.2 g/dL Normal 6.4-8.2 [facility] Comment on above: Order Comment: 'TROP ' Serial specimen #1, #2 or #3: 1 Performed By: #### L 500.3400, L501.4020, L500.2500 #### [facility] [address] [place], [address] M100.678on 06-07-2024 M100.678 Pending SARS-CoV-2 (COVID 19) Negative INFLUENZA A Negative INFLUENZA B Negative RSV PCR Negative Normal [facility] Comment on above: Performed By: #### L 500.3400, L501.4020, L500.2500 #### [facility] [address] [place], [address] Partial Thromboplast Timeon 06-07-2024 aPTT Coag (Bld) [Time] 23.8 s Low 24.1-36.2 [facility] Comment on above: Performed By: #### L 500.3400, L501.4020, L500.2500 #### [facility] [address] [place], [address] Prothrombin Time w/INRon INR Coag (PPP) [Relative time] 0.9 {INR} Normal [facility] Comment on above: Performed By: #### L 500.3400, L501.4020, L500.2500 #### [facility] [address] [place], [address] PT Coag (PPP) [Time] 12.5 s Normal 11.7-14.9 [facility] Comment on above: Performed By: #### L 500.3400, L501.4020, L500.2500 #### [facility] [address] [place], [address] Progress Noteon 05-17-2024 Progress Note EMR reviewed. The patient had an office appt. with PCP on 05/03/24: ABILIO Fraser comes in today complaining that she thinks she has had some sinus problems she is having difficulty breathing through her nose, she does wear oxygen / and she says at home it does have humidification on the but not reportable. She has been taking some Mucinex but she says her nasal passages are very dry and everything seems to be thick and going and she is having difficulty clearing her nasal passages. ASSESSMENT/PLAN: 1. Nasal congestion Assessment & Plan: She is prescription for Mucinex D sent to pharmacy she is to take this twice a day. She is to use a saline nasal spray and saline gel frequently and she is to use Flonase 2 sprays every night at bedtime. Vitals: BP 124/60 Pulse 93 Temp 37.1 ?C (98.8 ?F) Ht 1.702 m (5' 7) Wt 86.6 kg (191 lb) SpO2 88% Important BMI 29.91 kg/m? BSA 2.02 m? PMH: COPD, HTN, DM2, DEPRESSION, ANXIETY, EDEMA, HIGH TRIGLYCERIDES HTN MEDS: Lisinopril/hydrochloro thiazide 20-25mg daily ?monitoring BP's every other day ?edema COPD MEDS: Trelegy inhaler 1 puff daily ?still using Albuterol inhaler 2 puffs as needed ?still using nebulizer once or twice daily ?monitoring pulse ox ?still using 4L O2 continuously ?wheezing or SOB Outreach attempted. CM left a voicemail message requesting a callback. Scheduled next outreach. [facility] Office Visiton 05-03-2024 Follow-up visit [id number] Luke Buitrago 1960 F Date Provider Department Center 05/03/2024 [id number] [facility] Family History Problem Relation Age of Onset Heart attack Father High Blood Pressure Mother Family Status - Relation Status Age at Father Mother Level of Service:04326 [place] OFFICE/OUTPATIENT ESTABLISHED SF MDM 10 MIN Reason for Visit and Comments: Sinus Problem [99] - Worried getting sick Joint Swelling [[id number]] - Left ankle [facility] Progress Noteon 05-03-2024 Progress Note She is prescription for Mucinex D sent to pharmacy she is to take this twice a day. She is to use a saline nasal spray and saline gel frequently and she is to use Flonase 2 sprays every night at bedtime. [facility] Progress Note Patient verified by last name and date of . [facility] Progress Note 05/03/2024 Kendra Buitrago (: 1960) is a 63 y.o. female , Established patient, here for evaluation of the following chief complaint(s): Sinus Problem (Worried getting sick) and Joint Swelling (Left ankle ) ASSESSMENT/PLAN: 1. Nasal congestion Assessment & Plan: She is prescription for Mucinex D sent to pharmacy she is to take this twice a day. She is to use a saline nasal spray and saline gel frequently and she is to use Flonase 2 sprays every night at bedtime. Follow up if symptoms worsen or fail to improve. SUBJECTIVE/OBJECTIVE: ABILIO Fraser comes in today complaining that she thinks she has had some sinus problems she is having difficulty breathing through her nose, she does wear oxygen 24/7 and she says at home it does have humidification on the but not reportable. She has been taking some Mucinex but she says her nasal passages are very dry and everything seems to be thick and going and she is having difficulty clearing her nasal passages. Review of Systems Constitutional: Negative for chills and fever. HENT: Positive for congestion. Negative for ear pain, nosebleeds, postnasal drip, rhinorrhea and sinus pressure. Respiratory: Negative for shortness of breath. Cardiovascular: Negative for chest pain and palpitations. Vitals: 05/03/24 0841 BP: 124/60 Pulse: 93 Temp: 37.1 ?C (98.8 ?F) SpO2: (!) 88% Weight: 191 lb (86.6 kg) Height: 5' 7 (1.702 m) Physical Exam Vitals and nursing note reviewed. Constitutional: General: She is not in acute distress. Appearance: Normal appearance. HENT: Head: Normocephalic and atraumatic. Right Ear: Tympanic membrane, ear canal and external ear normal. Left Ear: Tympanic membrane, ear canal and external ear normal. Nose: Mucosal edema and congestion present. No rhinorrhea. Right Turbinates: Swollen. Left Turbinates: Swollen. Right Sinus: No maxillary sinus tenderness or frontal sinus tenderness. Left Sinus: No maxillary sinus tenderness or frontal sinus tenderness. Mouth/Throat: Mouth: Mucous membranes are moist. Pharynx: Oropharynx is clear. Eyes: Extraocular Movements: Extraocular movements intact. Pupils: Pupils are equal, round, and reactive to light. Cardiovascular: Rate and Rhythm: Normal rate and regular rhythm. Heart sounds: Normal heart sounds. No murmur heard. Pulmonary: Effort: Pulmonary effort is normal. Breath sounds: Normal breath sounds. Musculoskeletal: Cervical back: Neck supple. Lymphadenopathy: Cervical: No cervical adenopathy. Neurological: Mental Status: She is alert. An electronic signature was used to authenticate this note. Vu Mullins MD 05/03/2024 10:08 AM [facility] 36on 04-24-2024 36 Notified. [facility] 36 Blood pressure is excellent [facility] 36 Ember came in for a BP check, reading was 116/67 pulse 91. [facility] Progress Noteon 04-24-2024 Progress Note [address] [facility] [address] Patient arrived for nurse visit today and was verified by name and . Supervising provider for clinic visit Dr. Mullins is taking lisinopril-hctz for hypertension with excellent compliance and no side effects Shortness of breath yes Medication compliance yes Medication Reconciliation yes BP Medication taken prior to visit yes at what time 8am B/P Reading taken automatic Patient advised if follow up is needed, outreach will occur in 48 hours [facility] 36on 04-14-2024 36 Prescription Request : Last medication check: 01/21/24 Last physical exam: 07/23/23 Next scheduled appointment: 08/08/24 Last date of refill on this medication 02/17/24 8.5 each 0 refill [facility] Progress Noteon 04-14-2024 Progress Note EMR reviewed. The patient had an office appt. with PCP on 04/12/24: HPI -Ember comes in today stating that she is having some increased chest tightness and wheezing, she is having pain over her frontal sinuses and congestion of her nose which makes it difficult to breathe and she does have a slight cough. Blood pressure is initially elevated today we will recheck prior to discharge. ASSESSMENT/PLAN: 1. COPD with acute exacerbation (HCC) Assessment & Plan: Medrol Dosepak use as directed. Doxycycline 100 mg twice a day for 10 days Nebulizer therapy every 6 hours for the next couple days and continue O2 2. Chronic hypoxemic respiratory failure (HCC) Assessment & Plan: Stable, continue oxygen she currently is on 4 L 3. Primary hypertension Assessment & Plan: Blood pressure is initially elevated, recheck was still high follow-up in 1 week for blood pressure check, continue lisinopril hydrochlorothiazide 20-25 mg 4. Acute non-recurrent frontal sinusitis Assessment & Plan: Doxycycline 100 mg twice a day x 10 days Saline gel to use in her nares to prevent drying out due to the oxygen Vitals: BP 151/71 Important Pulse 87 Temp 37.2 ?C (99 ?F) Ht 1.702 m (5' 7) Wt 87.7 kg (193 lb 6.4 oz) SpO2 90% BMI 30.29 kg/m? BSA 2.04 m? PMH: COPD, HTN, DM2, DEPRESSION, ANXIETY, EDEMA, HIGH TRIGLYCERIDES COPD MEDS: Trelegy inhaler 1 puff daily Using Albuterol inhaler 2 puffs as needed-few times daily Using nebulizer once or twice daily Monitoring pulse ox a few times daily-95-96% on 4L O2 Using 4L O2 continuously Denies any current wheezing SOB with exertion. Recovers when resting. HTN MEDS: Lisinopril/hydrochloro thiazide 20-25mg daily Not monitoring BP's at home. She stated she had a higher BP reading yesterday at her PCP appt.-151/71. Her PCP wants her to follow-up in a week for another BP check. The patient has a BP cuff at home. We discussed starting to monitor her BP's at least every other day and to keep track of her results. She was agreeable. Denies any current edema She stated she had a steroid injection in her left knee on 03/17/24. The patient stated it really helped her pain. She denies any current left knee pain. The patient lives with her . She is not using any assistive devices. She is able to do her own ADL's and housework. Plan: The patient will begin monitoring her BP's at least every other day and keep track of her results. She will continue to monitor her pulse ox daily. CM will follow-up one more time to make sure she is on track with her BP's. Scheduled next outreach. [facility] Office Visiton 04-12-2024 Follow-up visit [id number] Luke Buitrago 1960 F Date Provider Department Center 04/12/2024 [id number] [facility] Family History Problem Relation Age of Onset Heart attack Father High Blood Pressure Mother Family Status - Relation Status Age at Father Mother Level of Service:67635 [place] OFFICE/OUTPATIENT ESTABLISHED MOD MDM 30 MIN Reason for Visit and Comments: Sinus Problem [99] - pain Cough [28] - Chest feels tight [facility] Progress Noteon 04-12-2024 Progress Note Doxycycline 100 mg twice a day x 10 days Saline gel to use in her nares to prevent drying out due to the oxygen. [facility] Progress Note Blood pressure is initially elevated, recheck was still high follow-up in 1 week for blood pressure check, continue lisinopril hydrochlorothiazide 20-25 mg [facility] Progress Note Stable, continue oxygen she currently is on 4 L [facility] Progress Note Medrol Dosepak use a s directed. Doxycycline 100 mg twice a day for 10 days Nebulizer therapy every 6 hours for the next couple days and continue O2 [facility] Progress Note Patient verified by last name and date of . [facility] Progress Note 04/12/2024 Kendra Buitrago (: 1960) is a 63 y.o. female , Established patient, here for evaluation of the following chief complaint(s): Sinus Problem (pain) and Cough (Chest feels tight ) ASSESSMENT/PLAN: 1. COPD with acute exacerbation (HCC) Assessment & Plan: Medrol Dosepak use as directed. Doxycycline 100 mg twice a day for 10 days Nebulizer therapy every 6 hours for the next couple days and continue O2 2. Chronic hypoxemic respiratory failure (HCC) Assessment & Plan: Stable, continue oxygen she currently is on 4 L 3. Primary hypertension Assessment & Plan: Blood pressure is initially elevated, recheck was still high follow-up in 1 week for blood pressure check, continue lisinopril hydrochlorothiazide 20-25 mg 4. Acute non-recurrent frontal sinusitis Assessment & Plan: Doxycycline 100 mg twice a day x 10 days Saline gel to use in her nares to prevent drying out due to the oxygen. Follow up if symptoms worsen or fail to improve. SUBJECTIVE/OBJECTIVE: HPI -Ember comes in today stating that she is having some increased chest tightness and wheezing, she is having pain over her frontal sinuses and congestion of her nose which makes it difficult to breathe and she does have a slight cough. Blood pressure is initially elevated today we will recheck prior to discharge. Review of Systems Constitutional: Negative for chills and fever. HENT: Positive for congestion. Negative for ear pain, rhinorrhea and sinus pressure. Respiratory: Positive for cough and shortness of breath. Cardiovascular: Negative for chest pain and palpitations. Vitals: 04/12/24 0905 04/12/24 0927 BP: (!) 158/72 (!) 151/71 Pulse: 92 87 Temp: 37.2 ?C (99 ?F) SpO2: (!) 86% 90% Weight: 193 lb 6.4 oz (87.7 kg) Height: 5' 7 (1.702 m) Physical Exam Vitals and nursing note reviewed. Constitutional: General: She is not in acute distress. Appearance: Normal appearance. HENT: Head: Normocephalic and atraumatic. Right Ear: Tympanic membrane, ear canal and external ear normal. Left Ear: Tympanic membrane, ear canal and external ear normal. Mouth/Throat: Mouth: Mucous membranes are moist. Pharynx: Oropharynx is clear. Eyes: Extraocular Movements: Extraocular movements intact. Pupils: Pupils are equal, round, and reactive to light. Cardiovascular: Rate and Rhythm: Normal rate and regular rhythm. Heart sounds: Normal heart sounds. No murmur heard. Pulmonary: Effort: Pulmonary effort is normal. Breath sounds: Examination of the right-upper field reveals wheezing. Examination of the left-upper field reveals wheezing. Examination of the right-middle field reveals wheezing. Wheezing present. Musculoskeletal: Cervical back: Neck supple. Lymphadenopathy: Cervical: No cervical adenopathy. Neurological: Mental Status: She is alert. An electronic signature was used to authenticate this note. Vu Mullins MD 04/12/2024 10:42 AM [facility] 36on 03-30-2024 36 Reviewed chart. Refi ll appropriate. RX sent. [facility] 36 Prescription Request : Last medication check: 01/21/24 Last physical exam: 07/23/23 Next scheduled appointment: 08/08/24 Last date of refill on this medication 02/10/23 1 bottle 2 refills [facility] Progress Noteon 03-30-2024 Progress Note EMR reviewed. The patient had an office appt. with PCP on 03/17/24: ABILIO Fraser comes in today for an injection in her left knee we have seen her for this in the past and she scheduled for an injection for today. Vitals: BP 131/70 Pulse 83 Ht 1.702 m (5' 7) Wt 86.7 kg (191 lb 3.2 oz) SpO2 95% BMI 29.95 kg/m? BSA 2.02 m? PMH: COPD, HTN, DM2, DEPRESSION, ANXIETY, EDEMA, HIGH TRIGLYCERIDES COPD MEDS: Trelegy inhaler 1 puff daily ?using Albuterol inhaler 2 puffs as needed ?using nebulizer ?monitoring pulse ox ?using 4L O2 continuously ?wheezing or SOB HTN MEDS: Lisinopril/hydrochloro thiazide 20-25mg daily ?monitoring BP's twice per week ?edema ?how is left knee Outreach attempted. CM left a voicemail message requesting a callback. Scheduled next outreach. [facility] Office Visiton 03-17-2024 Follow-up visit [id number] Luke Buitrago 1960 F Date Provider Department Center 03/17/2024 [id number] [facility] Family History Problem Relation Age of Onset Heart attack Father High Blood Pressure Mother Family Status - Relation Status Age at Father Mother Level of Service:96930 [place] OFFICE/OUTPT VISIT,PROCEDURE ONLY Reason for Visit and Comments: Knee Pain [516559] - Left- asking for inj Health Maintenance [872] - Eye exam- not done in last year Dental exam- not done in last year Bone density- agree Other [0] - Pt is asking if she in now diabetic- she thought she was prediabetic [facility] Progress Noteon 03-17-2024 Progress Note Patient verified by last name and date of . [facility] Progress Note 03/17/2024 Kendra Buitrago (: 1960) is a 63 y.o. female , Established patient, here for evaluation of the following chief complaint(s): Knee Pain (Left- asking for inj), Health Maintenance (Eye exam- not done in last year /Dental exam- not done in last year/Bone density- agree ), and Other (Pt is asking if she in now diabetic- she thought she was prediabetic ) ASSESSMENT/PLAN: 1. Chronic pain of left knee Assessment & Plan: Injection procedure: Location left knee Consent: Verbal Consent Obtained-Discussed risks including hypo/hyperpigmentation , fat atrophy, steroid flare, bleeding and infection and potential consequences of over use of steroids. Prep: Betadine. Anesthesia: 2% lidocaine. Medication: 1 ml depomedrol 40 mg. Needle: 25 gauge 1.5 in. needle. Complications: No Complications, Hemostasis achieved. Orders: - Large Joint Injection/Arthrocentes is - methylPREDNISolone acetate (DEPO-Medrol) injection 40 mg; 40 mg, Intra-artICUlar, Once, On Wed03/17/24 at 1100, For 1 dose - lidocaine (Xylocaine) 2 % injection 2 mL; 2 mL, Injection, Once, On Wed03/17/24 at 1100, For 1 dose 2. Menopause - DEXA bone density axial skeleton Follow up if symptoms worsen or fail to improve. SUBJECTIVE/OBJECTIVE: ABILIO Fraser comes in today for an injection in her left knee we have seen her for this in the past and she scheduled for an injection for today. Review of Systems Musculoskeletal: Positive for arthralgias. Negative for joint swelling. Vitals: 03/17/24 1026 BP: 131/70 Pulse: 83 SpO2: 95% Weight: 191 lb 3.2 oz (86.7 kg) Height: 5' 7 (1.702 m) Physical Exam Vitals and nursing note reviewed. Constitutional: Appearance: Normal appearance. Musculoskeletal: Comments: Left knee with normal range of motion some mild crepitus normal muscle strength and normal stability. No effusion. Neurological: Mental Status: She is alert. An electronic signature was used to authenticate this note. Vu Mullins MD 03/17/2024 10:56 AM [facility] 36on 03-16-2024 36 lm to pre-visit plan for appointment with Dr Mullins on 03/17/24 10:30. Please ask patient to arrive 15 minutes early with Photo ID, insurance card Fasting: no [facility] 36on 03-15-2024 36 Scheduled. [facility] 36 I would recommend trying a cortisone injection and see if that helps [facility] 36 Notified, she asked what the next step is since she is still having pain? ----- Message from Vu Mullins MD sent at 03/15/2024 9:23 AM EDT ----- Left knee shows some mild narrowing of the medial joint space, no significant arthritis and no fracture or dislocation. [facility] Office Visiton 03-09-2024 Follow-up visit [id number] Luke Buitrago 1960 F Date Provider Department Center 03/09/2024 [id number] [facility] Family History Problem Relation Age of Onset Heart attack Father High Blood Pressure Mother Family Status - Relation Status Age at Father Mother Level of Service:56944 [place] OFFICE/OUTPATIENT ESTABLISHED MOD MDM 30 MIN Reason for Visit and Comments: Knee Pain [207387] - Left - feels like it wants to go out Referral [825] - To chiropractor Back Pain [12] - Back feeling better Health Maintenance [872] - Flu vaccine- refuse Medication Problem [65] - Pt needs clarification on what and when she needs to use for her nebulizer -she has 3 medications and does not know when she needs to use them [facility] Progress Noteon 03-09-2024 Progress Note X-ray to be obtained of her left knee, she is to start taking the meloxicam and stop taking ibuprofen. [facility] Progress Note Controlled, continue lisinopril hydrochlorothiazide 20-25 [facility] Progress Note Stable, continue Pulmicort twice a day and albuterol as needed either a puffer or nebulizer and DuoNeb if needed. And continue Trelegy [facility] Progress Note Stable, continue oxygen at current settings. [facility] Progress Note Patient verified by last name and date of . [facility] Progress Note 03/09/2024 Kendra Buitrago (: 1960) is a 63 y.o. female , Established patient, here for evaluation of the following chief complaint(s): Knee Pain (Left - feels like it wants to go out ), Referral (To chiropractor ), Back Pain (Back feeling better ), Health Maintenance (Flu vaccine- refuse), and Medication Problem (Pt needs clarification on what and when she needs to use for her nebulizer -she has 3 medications and does not know when she needs to use them ) ASSESSMENT/PLAN: 1. Chronic obstructive pulmonary disease, unspecified COPD type (HCC) Assessment & Plan: Stable, continue Pulmicort twice a day and albuterol as needed either a puffer or nebulizer and DuoNeb if needed. And continue Trelegy 2. Refused influenza vaccine 3. Chronic hypoxemic respiratory failure (HCC) Assessment & Plan: Stable, continue oxygen at current settings. 4. Primary hypertension Assessment & Plan: Controlled, continue lisinopril hydrochlorothiazide 20-25 5. Chronic pain of left knee Assessment & Plan: X-ray to be obtained of her left knee, she is to start taking the meloxicam and stop taking ibuprofen. Orders: - XR knee 4+ views left Follow up if symptoms worsen or fail to improve. SUBJECTIVE/OBJECTIVE: ABILIO Fraser was scheduled to come in today for back pain but she says that is pretty well resolved now she is complaining of some pain in her left knee, she says at times the knee feels like it is going to give out on her. Also here for follow-up on her COPD which seems to be stable at this time she continues to use her oxygen on a continual basis and her inhalers and her blood pressure was very good today. Review of Systems Constitutional: Negative for chills and fever. HENT: Negative for ear pain, rhinorrhea and sinus pressure. Respiratory: Negative for shortness of breath. Cardiovascular: Negative for chest pain and palpitations. Musculoskeletal: Positive for arthralgias and gait problem. Negative for joint swelling. Vitals: 03/09/24 0942 BP: 118/68 Pulse: 91 SpO2: 93% Weight: 192 lb 6.4 oz (87.3 kg) Height: 5' 7 (1.702 m) Physical Exam Vitals and nursing note reviewed. Constitutional: General: She is not in acute distress. Appearance: Normal appearance. HENT: Head: Normocephalic and atraumatic. Mouth/Throat: Mouth: Mucous membranes are moist. Pharynx: Oropharynx is clear. Eyes: Extraocular Movements: Extraocular movements intact. Pupils: Pupils are equal, round, and reactive to light. Cardiovascular: Rate and Rhythm: Normal rate and regular rhythm. Heart sounds: Normal heart sounds. No murmur heard. Pulmonary: Effort: Pulmonary effort is normal. Breath sounds: Normal breath sounds. Musculoskeletal: Cervical back: Neck supple. Lymphadenopathy: Cervical: No cervical adenopathy. Neurological: Mental Status: She is alert. An electronic signature was used to authenticate this note. Vu Mullins MD 03/09/2024 2:08 PM [facility] 36on 03-08-2024 36 LM to pre-visit plan for appointment with Dr Mullins on 03/09/24 9:45. Please ask patient to arrive 15 minutes early with Photo ID, insurance card Fasting: no [facility] HbA1c (Bld) [Mass fraction]o n 01-21-2024 Interpretation and review of laboratory results Abnormal [facility] - Hematology and Cell countson 01-21-2024 HbA1c (Bld) [Mass fraction] 6.4 % Abnormal - 5.7 % [facility] [employer] CBC W Auto Differential pane l (Bld)on 11-10-2023 Basophils (Bld) [#/Vol] 0.0 10*3/uL 0.0 - 0.2 10*3/uL [facility] [employer] Basophils/100 WBC (Bld) 0.4 % 0.0 - 2.0 % [facility] Eosinophils (Bld) [#/Vol] 0.2 10*3/uL 0.0 - 0.5 10*3/uL [facility] [employer] Eosinophils/100 WBC (Bld) 1.3 % 0.0 - 6.0 % [facility] [employer] Erythrocyte distribution width (RBC) [Ratio] 13.1 % 11.5 - 15.0 % [facility] [employer] Hematocrit (Bld) [Volume fraction] 43.4 % 35.0 - 47.0 % [facility] Hemoglobin (Bld) [Mass/Vol] 13.4 g/dL 11.7 - 16.0 g/dL [facility] [employer] Immature granulocytes (Bld) [#/Vol] 0.4 10*3/uL High NINF - 0.1 10*3/uL [facility] [employer] Immature granulocytes/100 WBC (Bld) 3.5 % High 0.0 - 2.0 % [facility] [employer] Interpretation and review of laboratory results Abnormal [facility] [employer] Lymphocytes (Bld) [#/Vol] 1.7 10*3/uL 1.0 - 4.3 10*3/uL [facility] [employer] Lymphocytes/100 WBC (Bld) 14.7 % Low 15.0 - 45.0 % [facility] [employer] MCH (RBC) [Entitic mass] 30.1 pg 26. 0 - 34.0 pg [facility] [employer] MCHC (RBC) [Mass/Vol] 30.9 % 30.5 - 36.0 % [facility] MCV (RBC) [Entitic vol] 97.5 fL 77.0 - 99.0 fL [facility] [employer] Monocytes (Bld) [#/Vol] 1.1 10*3/uL High 0.0 - 0.9 10*3/uL [facility] [employer] Monocytes/100 WBC (Bld) 9.5 % 5.0 - 13.0 % [facility] [employer] Neutrophils (Bld) [#/Vol] 8.0 10*3/uL High 1.8 - 7.5 10*3/uL [facility] Neutrophils/100 WBC (Bld) 70.6 % 38.0 - 82.0 % [facility] Nucleated RBC/100 WBC (Bld) [Ratio] 0.0 % [facility] Platelet mean volume (Bld) [Entitic vol] 9.1 fL 9.0 - 12.7 fL [facility] Platelets (Bld) [#/Vol] 220 10*3/uL 140 - 440 10*3/uL [facility] RBC (Bld) [#/Vol] 4.45 10*6/uL 3.80 - 5.2 0 10*6/uL [facility] WBC (Bld) [#/Vol] 11.3 10*3/uL High 3.6 - 10.7 10*3/uL [facility] Calcium.ionized [Moles/Vol]o n 11-10-2023 Calcium.ionized (Bld) [Moles/Vol] 4.20 mg/dL Low 4.30 - 5.20 mg/dL [facility] Interpretation and review of laboratory results Abnormal [facility] PH, IONIZED CALCIUM 7.44 7.31 - 7.46 [facility] Comprehensive metabolic 1998 panelon 11-10-2023 Albumin [Mass/Vol] 3.3 g/dL Low 3.5 - 5.0 g/dL [facility] ALP [Catalytic activity/Vol] 53 U/L 38 - 126 U/L [facility] ALT [Catalytic activity/Vol] 32 U/L 0 - 34 U/L [facility] Anion gap [Moles/Vol] 8 mmol/L 3 - 13 mmol/L [facility] AST [Catalytic activity/Vol] 21 U/L 15 - 46 U/L [facility] Bilirubin [Mass/Vol] 0.5 mg/dL 0.2 - 1 .3 mg/dL [facility] Calcium [Mass/Vol] 8.6 mg/dL 8.4 - 10. 4 mg/dL [facility] Chloride [Moles/Vol] 99 mmol/L 98 - 10 7 mmol/L [facility] CO2 [Moles/Vol] 33 mmol/L High 22 - 30 mmol/L [facility] Creatinine [Mass/Vol] 0.52 mg/dL 0.52 - 1.04 mg/dL [facility] GFR/1.73 sq M.predicted MDRD (S/P/Bld) [Vol rate/Area] - PINF [facility] Glucose [Mass/Vol] 130 mg/dL High 70 - 100 mg/dL [facility] Interpretation and review of laboratory results Abnormal [facility] Potassium [Moles/Vol] 4.4 mmol/L 3.5 - 5.1 mmol/L [facility] Protein [Mass/Vol] 5.9 g/dL Low 6.3 - 8.2 g/dL [facility] Sodium [Moles/Vol] 140 mmol/L 135 - 145 mmol/L [facility] Urea nitrogen [Mass/Vol] 29 mg/dL High 7 - 17 mg/dL [facility] Laboratory - Chemistry and C hemistry - challengeon 11-10-2023 Magnesium [Mass/Vol] 1.9 mg/dL 1.6 - 2 .3 mg/dL [facility] No Panel Informationon 11-09 Interpretation and review of laboratory results Normal [facility] Phosphate [Moles/Vol]on Phosphate [Mass/Vol] 4.5 mg/dL 2.5 - 4 .5 mg/dL [facility] CBC W Auto Differential pane l (Bld)on 11-09-2023 Basophils (Bld) [#/Vol] 0.0 10*3/uL 0.0 - 0.2 10*3/uL [facility] Basophils/100 WBC (Bld) 0.3 % 0.0 - 2.0 % [facility] Eosinophils (Bld) [#/Vol] 0.2 10*3/uL 0.0 - 0.5 10*3/uL [facility] Eosinophils/100 WBC (Bld) 1.4 % 0.0 - 6.0 % [facility] Erythrocyte distribution width (RBC) [Ratio] 13.1 % 11.5 - 15.0 % [facility] Hematocrit (Bld) [Volume fraction] 44.8 % 35.0 - 47.0 % [facility] Hemoglobin (Bld) [Mass/Vol] 13.9 g/dL 11.7 - 16.0 g/dL [facility] Immature granulocytes (Bld) [#/Vol] 0.5 10*3/uL High NINF - 0.1 10*3/uL [facility] Immature granulocytes/100 WBC (Bld) 3.9 % High 0.0 - 2.0 % [facility] Interpretation and review of laboratory results Abnormal [facility] Lymphocytes (Bld) [#/Vol] 1.8 10*3/uL 1.0 - 4.3 10*3/uL [facility] Lymphocytes/100 WBC (Bld) 15.8 % 15.0 - 45.0 % [facility] MCH (RBC) [Entitic mass] 30.0 pg 26. 0 - 34.0 pg [facility] MCHC (RBC) [Mass/Vol] 31.0 % 30.5 - 36.0 % [facility] MCV (RBC) [Entitic vol] 96.8 fL 77.0 - 99.0 fL [facility] Monocytes (Bld) [#/Vol] 1.0 10*3/uL High 0.0 - 0.9 10*3/uL [facility] Monocytes/100 WBC (Bld) 8.8 % 5.0 - 13.0 % [facility] Neutrophils (Bld) [#/Vol] 8.1 10*3/uL High 1.8 - 7.5 10*3/uL [facility] Neutrophils/100 WBC (Bld) 69.8 % 38.0 - 82.0 % [facility] Nucleated RBC/100 WBC (Bld) [Ratio] 0.0 % [facility] Platelet mean volume (Bld) [Entitic vol] 9.3 fL 9.0 - 12.7 fL [facility] Platelets (Bld) [#/Vol] 228 10*3/uL 140 - 440 10*3/uL [facility] RBC (Bld) [#/Vol] 4.63 10*6/uL 3.80 - 5.2 0 10*6/uL [facility] WBC (Bld) [#/Vol] 11.6 10*3/uL High 3.6 - 10.7 10*3/uL [facility] Calcium.ionized [Moles/Vol]o n 11-09-2023 Calcium.ionized (Bld) [Moles/Vol] 4.30 mg/dL 4.30 - 5.20 mg/dL [facility] Interpretation and review of laboratory results Normal [facility] PH, IONIZED CALCIUM 7.46 7.31 - 7.46 [facility] Comprehensive metabolic 1998 panelon 11-09-2023 Albumin [Mass/Vol] 3.5 g/dL 3.5 - 5.0 g/dL [facility] ALP [Catalytic activity/Vol] 53 U/L 38 - 126 U/L [facility] ALT [Catalytic activity/Vol] 31 U/L 0 - 34 U/L [facility] Anion gap [Moles/Vol] 6 mmol/L 3 - 13 mmol/L [facility] AST [Catalytic activity/Vol] 23 U/L 15 - 46 U/L [facility] Bilirubin [Mass/Vol] 0.6 mg/dL 0.2 - 1 .3 mg/dL [facility] Calcium [Mass/Vol] 8.9 mg/dL 8.4 - 10. 4 mg/dL [facility] Chloride [Moles/Vol] 97 mmol/L Low 98 - 10 7 mmol/L [facility] CO2 [Moles/Vol] 38 mmol/L High 22 - 30 mmol/L [facility] Creatinine [Mass/Vol] 0.57 mg/dL 0.52 - 1.04 mg/dL [facility] GFR/1.73 sq M.predicted MDRD (S/P/Bld) [Vol rate/Area] - PINF [facility] Glucose [Mass/Vol] 122 mg/dL High 70 - 100 mg/dL [facility] Interpretation and review of laboratory results Abnormal [facility] Potassium [Moles/Vol] 4.4 mmol/L 3.5 - 5.1 mmol/L [facility] Protein [Mass/Vol] 6.0 g/dL Low 6.3 - 8.2 g/dL [facility] Sodium [Moles/Vol] 140 mmol/L 135 - 145 mmol/L [facility] Urea nitrogen [Mass/Vol] 29 mg/dL High 7 - 17 mg/dL [facility] Laboratory - Chemistry and C hemistry - challengeon 11-09-2023 Magnesium [Mass/Vol] 1.9 mg/dL 1.6 - 2 .3 mg/dL [facility] No Panel Informationon 11-08 Interpretation and review of laboratory results Normal [facility] Phosphate [Moles/Vol]on Phosphate [Mass/Vol] 4.0 mg/dL 2.5 - 4 .5 mg/dL [facility] [employer] CBC W Auto Differential pane l (Bld)on 11-08-2023 Basophils (Bld) [#/Vol] 0.1 10*3/uL 0.0 - 0.2 10*3/uL [facility] [employer] Basophils/100 WBC (Bld) 0.5 % 0.0 - 2.0 % [facility] [employer] Eosinophils (Bld) [#/Vol] 0.2 10*3/uL 0.0 - 0.5 10*3/uL [facility] Eosinophils/100 WBC (Bld) 1.6 % 0.0 - 6.0 % [facility] [employer] Erythrocyte distribution width (RBC) [Ratio] 12.8 % 11.5 - 15.0 % [facility] [employer] Hematocrit (Bld) [Volume fraction] 41.6 % 35.0 - 47.0 % [facility] Hemoglobin (Bld) [Mass/Vol] 12.9 g/dL 11.7 - 16.0 g/dL [facility] [facility] Immature granulocytes (Bld) [#/Vol] 0.4 10*3/uL High NINF - 0.1 10*3/uL [facility] [facility] Immature granulocytes/100 WBC (Bld) 3.7 % High 0.0 - 2.0 % [facility] Interpretation and review of laboratory results Abnormal [facility] Lymphocytes (Bld) [#/Vol] 1.9 10*3/uL 1.0 - 4.3 10*3/uL [facility] Lymphocytes/100 WBC (Bld) 16.1 % 15.0 - 45.0 % [facility] MCH (RBC) [Entitic mass] 30.2 pg 26. 0 - 34.0 pg [facility] [employer] MCHC (RBC) [Mass/Vol] 31.0 % 30.5 - 36.0 % [facility] MCV (RBC) [Entitic vol] 97.4 fL 77.0 - 99.0 fL [facility] [facility] Monocytes (Bld) [#/Vol] 1.0 10*3/uL High 0.0 - 0.9 10*3/uL [facility] Monocytes/100 WBC (Bld) 8.4 % 5.0 - 13.0 % [facility] [facility] Neutrophils (Bld) [#/Vol] 8.0 10*3/uL High 1.8 - 7.5 10*3/uL [facility] Neutrophils/100 WBC (Bld) 69.7 % 38.0 - 82.0 % [facility] Nucleated RBC/100 WBC (Bld) [Ratio] 0.0 % [facility] Platelet mean volume (Bld) [Entitic vol] 9.6 fL 9.0 - 12.7 fL [facility] Platelets (Bld) [#/Vol] 215 10*3/uL 140 - 440 10*3/uL [facility] RBC (Bld) [#/Vol] 4.27 10*6/uL 3.80 - 5.2 0 10*6/uL [facility] WBC (Bld) [#/Vol] 11.5 10*3/uL High 3.6 - 10.7 10*3/uL [facility] Calcium.ionized [Moles/Vol]O rdered By: Osman Murry on 11-08-2023 Calcium.ionized (Bld) [Moles/Vol] 3.80 mg/dL Low 4.30 - 5.20 mg/dL [facility] Interpretation and review of laboratory results Abnormal [facility] PH, IONIZED CALCIUM 7.60 High 7.31 - 7.46 [facility] Comprehensive metabolic 1998 panelon 11-08-2023 Albumin [Mass/Vol] 3.1 g/dL Low 3.5 - 5.0 g/dL [facility] ALP [Catalytic activity/Vol] 44 U/L 38 - 126 U/L [facility] ALT [Catalytic activity/Vol] 29 U/L 0 - 34 U/L [facility] Anion gap [Moles/Vol] 5 mmol/L 3 - 13 mmol/L [facility] AST [Catalytic activity/Vol] 21 U/L 15 - 46 U/L [facility] Bilirubin [Mass/Vol] 0.5 mg/dL 0.2 - 1 .3 mg/dL [facility] Calcium [Mass/Vol] 8.7 mg/dL 8.4 - 10. 4 mg/dL [facility] Chloride [Moles/Vol] 95 mmol/L Low 98 - 10 7 mmol/L [facility] CO2 [Moles/Vol] 37 mmol/L High 22 - 30 mmol/L [facility] Creatinine [Mass/Vol] 0.52 mg/dL 0.52 - 1.04 mg/dL [facility] GFR/1.73 sq M.predicted MDRD (S/P/Bld) [Vol rate/Area] - PINF [facility] Glucose [Mass/Vol] 108 mg/dL High 70 - 100 mg/dL [facility] Interpretation and review of laboratory results Abnormal [facility] Potassium [Moles/Vol] 4.6 mmol/L 3.5 - 5.1 mmol/L [facility] Protein [Mass/Vol] 5.6 g/dL Low 6.3 - 8.2 g/dL [facility] Sodium [Moles/Vol] 137 mmol/L 135 - 145 mmol/L [facility] Urea nitrogen [Mass/Vol] 29 mg/dL High 7 - 17 mg/dL [facility] Laboratory - Chemistry and C hemistry - challengeon 11-08-2023 Glucose [Mass/Vol] 284 mg/dL High 70 - 100 mg/dL [facility] Glucose [Mass/Vol] 203 mg/dL High 70 - 100 mg/dL [facility] Glucose [Mass/Vol] 119 mg/dL High 70 - 100 mg/dL [facility] Magnesium [Mass/Vol] 1.9 mg/dL 1.6 - 2 .3 mg/dL [facility] No Panel Informationon 11-07 Interpretation and review of laboratory results Abnormal [facility] Interpretation and review of laboratory results Abnormal [facility] Interpretation and review of laboratory results Abnormal [facility] Interpretation and review of laboratory results Normal [facility] Radiology Study observation (narrative) [facility] Radiology Study observation (narrative) [facility]narrative[facility] Phosph[facility] [Moles/Vol]on Phosphate [Mass/Vol] 4.2 mg/dL 2.5 - 4 .5 mg/dL [facility] CBC W Auto Differential pane l (Bld)on 11-07-2023 Basophils (Bld) [#/Vol] 0.0 10*3/uL 0.0 - 0.2 10*3/uL [facility] Basophils/100 WBC (Bld) 0.4 % 0.0 - 2.0 % [facility] Eosinophils (Bld) [#/Vol] 0.1 10*3/uL 0.0 - 0.5 10*3/uL [facility] Eosinophils/100 WBC (Bld) 1.0 % 0.0 - 6.0 % [facility] Erythrocyte distribution width (RBC) [Ratio] 12.6 % 11.5 - 15.0 % [facility] Hematocrit (Bld) [Volume fraction] 41.3 % 35.0 - 47.0 % [facility] Hemoglobin (Bld) [Mass/Vol] 12.9 g/dL 11.7 - 16.0 g/dL [facility] Immature granulocytes (Bld) [#/Vol] 0.4 10*3/uL High NINF - 0.1 10*3/uL [facility] Immature granulocytes/100 WBC (Bld) 3.7 % High 0.0 - 2.0 % [facility] Interpretation and review of laboratory results Abnormal [facility] Lymphocytes (Bld) [#/Vol] 1.5 10*3/uL 1.0 - 4.3 10*3/uL [facility] Lymphocytes/100 WBC (Bld) 14.5 % Low 15.0 - 45.0 % [facility] MCH (RBC) [Entitic mass] 30.5 pg 26. 0 - 34.0 pg [facility] MCHC (RBC) [Mass/Vol] 31.2 % 30.5 - 36.0 % [facility] MCV (RBC) [Entitic vol] 97.6 fL 77.0 - 99.0 fL [facility] Monocytes (Bld) [#/Vol] 0.9 10*3/uL 0.0 - 0.9 10*3/uL [facility] Monocytes/100 WBC (Bld) 8.8 % 5.0 - 13.0 % [facility] Neutrophils (Bld) [#/Vol] 7.4 10*3/uL 1.8 - 7.5 10*3/uL [facility] Neutrophils/100 WBC (Bld) 71.6 % 38.0 - 82.0 % [facility] Nucleated RBC/100 WBC (Bld) [Ratio] 0.0 % [facility] Platelet mean volume (Bld) [Entitic vol] 9.4 fL 9.0 - 12.7 fL [facility] Platelets (Bld) [#/Vol] 238 10*3/uL 140 - 440 10*3/uL [facility] RBC (Bld) [#/Vol] 4.23 10*6/uL 3.80 - 5.2 0 10*6/uL [facility] WBC (Bld) [#/Vol] 10.3 10*3/uL 3.6 - 10.7 10*3/uL [facility] Calcium.ionized [Moles/Vol]o n 11-07-2023 Calcium.ionized (Bld) [Moles/Vol] 4.00 mg/dL Low 4.30 - 5.20 mg/dL [facility] Interpretation and review of laboratory results Abnormal [facility] PH, IONIZED CALCIUM 7.54 High 7.31 - 7.46 [facility] Comprehensive metabolic 1998 panelon 11-07-2023 Albumin [Mass/Vol] 3.0 g/dL Low 3.5 - 5.0 g/dL [facility] ALP [Catalytic activity/Vol] 52 U/L 38 - 126 U/L [facility] ALT [Catalytic activity/Vol] 32 U/L 0 - 34 U/L [facility] Anion gap [Moles/Vol] 4 mmol/L 3 - 13 mmol/L [facility] AST [Catalytic activity/Vol] 19 U/L 15 - 46 U/L [facility] Bilirubin [Mass/Vol] 0.5 mg/dL 0.2 - 1 .3 mg/dL [facility] Calcium [Mass/Vol] 8.6 mg/dL 8.4 - 10. 4 mg/dL [facility] Chloride [Moles/Vol] 94 mmol/L Low 98 - 10 7 mmol/L [facility] CO2 [Moles/Vol] 38 mmol/L High 22 - 30 mmol/L [facility] Creatinine [Mass/Vol] 0.57 mg/dL 0.52 - 1.04 mg/dL [facility] GFR/1.73 sq M.predicted MDRD (S/P/Bld) [Vol rate/Area] - PINF [facility] Glucose [Mass/Vol] 176 mg/dL High 70 - 100 mg/dL [facility] Interpretation and review of laboratory results Abnormal [facility] Potassium [Moles/Vol] 4.2 mmol/L 3.5 - 5.1 mmol/L [facility] Protein [Mass/Vol] 5.5 g/dL Low 6.3 - 8.2 g/dL [facility] Sodium [Moles/Vol] 136 mmol/L 135 - 145 mmol/L [facility] Urea nitrogen [Mass/Vol] 31 mg/dL High 7 - 17 mg/dL [facility] Laboratory - Chemistry and C hemistry - challengeon 11-07-2023 Magnesium [Mass/Vol] 1.9 mg/dL 1.6 - 2 .3 mg/dL [facility] No Panel Informationon 11-06 Interpretation and review of laboratory results Normal [facility] Phosphate [Moles/Vol]on Phosphate [Mass/Vol] 3.7 mg/dL 2.5 - 4 .5 mg/dL [facility] CBC W Auto Differential pane l (Bld)on 11-06-2023 Basophils (Bld) [#/Vol] 0.1 10*3/uL 0.0 - 0.2 10*3/uL [facility] Basophils/100 WBC (Bld) 0.7 % 0.0 - 2.0 % [facility] Eosinophils (Bld) [#/Vol] 0.1 10*3/uL 0.0 - 0.5 10*3/uL [facility] Eosinophils/100 WBC (Bld) 0.8 % 0.0 - 6.0 % [facility] Erythrocyte distribution width (RBC) [Ratio] 12.7 % 11.5 - 15.0 % [facility] Hematocrit (Bld) [Volume fraction] 43.1 % 35.0 - 47.0 % [facility] Hemoglobin (Bld) [Mass/Vol] 13.1 g/dL 11.7 - 16.0 g/dL [facility] Immature granulocytes (Bld) [#/Vol] 0.4 10*3/uL High NINF - 0.1 10*3/uL [facility] Immature granulocytes/100 WBC (Bld) 3.6 % High 0.0 - 2.0 % [facility] Interpretation and review of laboratory results Abnormal [facility] Lymphocytes (Bld) [#/Vol] 1.8 10*3/uL 1.0 - 4.3 10*3/uL [facility] Lymphocytes/100 WBC (Bld) 17.1 % 15.0 - 45.0 % [facility] MCH (RBC) [Entitic mass] 30.0 pg 26. 0 - 34.0 pg [facility] MCHC (RBC) [Mass/Vol] 30.4 % Low 30.5 - 36.0 % [facility] MCV (RBC) [Entitic vol] 98.6 fL 77.0 - 99.0 fL [facility] Monocytes (Bld) [#/Vol] 1.1 10*3/uL High 0.0 - 0.9 10*3/uL [facility] Monocytes/100 WBC (Bld) 10.6 % 5.0 - 13.0 % [facility] Neutrophils (Bld) [#/Vol] 7.1 10*3/uL 1.8 - 7.5 10*3/uL [facility] Neutrophils/100 WBC (Bld) 67.2 % 38.0 - 82.0 % [facility] Nucleated RBC/100 WBC (Bld) [Ratio] 0.0 % [facility] Platelet mean volume (Bld) [Entitic vol] 9.6 fL 9.0 - 12.7 fL [facility] Platelets (Bld) [#/Vol] 254 10*3/uL 140 - 440 10*3/uL [facility] RBC (Bld) [#/Vol] 4.37 10*6/uL 3.80 - 5.2 0 10*6/uL [facility] WBC (Bld) [#/Vol] 10.5 10*3/uL 3.6 - 10.7 10*3/uL [facility] Calcium.ionized [Moles/Vol]o n 11-06-2023 Calcium.ionized (Bld) [Moles/Vol] 4.30 mg/dL 4.30 - 5.20 mg/dL [facility] Interpretation and review of laboratory results Abnormal [facility] PH, IONIZED CALCIUM 7.49 High 7.31 - 7.46 [facility] Comprehensive metabolic 1998 panelOrdered By: Fawad Orantes on 11-06-2023 Albumin [Mass/Vol] 3.3 g/dL Low 3.5 - 5.0 g/dL [facility] ALP [Catalytic activity/Vol] 53 U/L 38 - 126 U/L [facility] ALT [Catalytic activity/Vol] 40 U/L High 0 - 34 U/L [facility] Anion gap [Moles/Vol] 5 mmol/L 3 - 13 mmol/L [facility] AST [Catalytic activity/Vol] 19 U/L 15 - 46 U/L [facility] Bilirubin [Mass/Vol] 0.4 mg/dL 0.2 - 1 .3 mg/dL [facility] Calcium [Mass/Vol] 9.0 mg/dL 8.4 - 10. 4 mg/dL [facility] Chloride [Moles/Vol] 96 mmol/L Low 98 - 10 7 mmol/L [facility] CO2 [Moles/Vol] 39 mmol/L High 22 - 30 mmol/L [facility] Creatinine [Mass/Vol] 0.63 mg/dL 0.52 - 1.04 mg/dL [facility] GFR/1.73 sq M.predicted MDRD (S/P/Bld) [Vol rate/Area] - PINF [facility] Glucose [Mass/Vol] 137 mg/dL High 70 - 100 mg/dL [facility] Interpretation and review of laboratory results Abnormal [facility] Potassium [Moles/Vol] 4.3 mmol/L 3.5 - 5.1 mmol/L [facility] Protein [Mass/Vol] 5.9 g/dL Low 6.3 - 8.2 g/dL [facility] Sodium [Moles/Vol] 140 mmol/L 135 - 145 mmol/L [facility] Urea nitrogen [Mass/Vol] 35 mg/dL High 7 - 17 mg/dL [facility] Laboratory - Chemistry and C hemistry - challengeon 11-06-2023 Magnesium [Mass/Vol] 1.8 mg/dL 1.6 - 2 .3 mg/dL [facility] No Panel Informationon 11-05 Interpretation and review of laboratory results Normal [facility] Phosphate [Moles/Vol]on Phosphate [Mass/Vol] 3.8 mg/dL 2.5 - 4 .5 mg/dL [facility] CBC W Auto Differential pane l (Bld)on 11-05-2023 Basophils (Bld) [#/Vol] 0.1 10*3/uL 0.0 - 0.2 10*3/uL [facility] Basophils/100 WBC (Bld) 0.9 % 0.0 - 2.0 % [facility] Eosinophils (Bld) [#/Vol] 0.0 10*3/uL 0.0 - 0.5 10*3/uL [facility] Eosinophils/100 WBC (Bld) 0.0 % 0.0 - 6.0 % [facility] Erythrocyte distribution width (RBC) [Ratio] 12.8 % 11.5 - 15.0 % [facility] Hematocrit (Bld) [Volume fraction] 42.4 % 35.0 - 47.0 % [facility] Hemoglobin (Bld) [Mass/Vol] 12.7 g/dL 11.7 - 16.0 g/dL [facility] Immature granulocytes (Bld) [#/Vol] 0.4 10*3/uL High NINF - 0.1 10*3/uL [facility] Immature granulocytes/100 WBC (Bld) 4.5 % High 0.0 - 2.0 % [facility] Interpretation and review of laboratory results Abnormal [facility] Lymphocytes (Bld) [#/Vol] 0.8 10*3/uL Low 1.0 - 4.3 10*3/uL [facility] Lymphocytes/100 WBC (Bld) 8.5 % Low 15.0 - 45.0 % [facility] MCH (RBC) [Entitic mass] 29.7 pg 26. 0 - 34.0 pg [facility] MCHC (RBC) [Mass/Vol] 30.0 % Low 30.5 - 36.0 % [facility] MCV (RBC) [Entitic vol] 99.3 fL High 77.0 - 99.0 fL [facility] Monocytes (Bld) [#/Vol] 1.0 10*3/uL High 0.0 - 0.9 10*3/uL [facility] Monocytes/100 WBC (Bld) 10.9 % 5.0 - 13.0 % [facility] Neutrophils (Bld) [#/Vol] 6.6 10*3/uL 1.8 - 7.5 10*3/uL [facility] Neutrophils/100 WBC (Bld) 75.2 % 38.0 - 82.0 % [facility] Nucleated RBC/100 WBC (Bld) [Ratio] 0.0 % [facility] Platelet mean volume (Bld) [Entitic vol] 9.8 fL 9.0 - 12.7 fL [facility] Platelets (Bld) [#/Vol] 251 10*3/uL 140 - 440 10*3/uL [facility] RBC (Bld) [#/Vol] 4.27 10*6/uL 3.80 - 5.2 0 10*6/uL [facility] WBC (Bld) [#/Vol] 8.8 10*3/uL 3.6 - 10.7 10*3/uL [facility] Calcium.ionized [Moles/Vol]o n 11-05-2023 Calcium.ionized (Bld) [Moles/Vol] 4.30 mg/dL 4.30 - 5.20 mg/dL [facility] Interpretation and review of laboratory results Abnormal [facility] PH, IONIZED CALCIUM 7.49 High 7.31 - 7.46 [facility] Comprehensive metabolic 1998 panelon 11-05-2023 Albumin [Mass/Vol] 3.3 g/dL Low 3.5 - 5.0 g/dL [facility] ALP [Catalytic activity/Vol] 56 U/L 38 - 126 U/L [facility] ALT [Catalytic activity/Vol] 44 U/L High 0 - 34 U/L [facility] Anion gap [Moles/Vol] 8 mmol/L 3 - 13 mmol/L [facility] AST [Catalytic activity/Vol] 21 U/L 15 - 46 U/L [facility] Bilirubin [Mass/Vol] 0.4 mg/dL 0.2 - 1 .3 mg/dL [facility] Calcium [Mass/Vol] 9.1 mg/dL 8.4 - 10. 4 mg/dL [facility] Chloride [Moles/Vol] 96 mmol/L Low 98 - 10 7 mmol/L [facility] CO2 [Moles/Vol] 37 mmol/L High 22 - 30 mmol/L [facility] Creatinine [Mass/Vol] 0.61 mg/dL 0.52 - 1.04 mg/dL [facility] GFR/1.73 sq M.predicted MDRD (S/P/Bld) [Vol rate/Area] - PINF [facility] Glucose [Mass/Vol] 293 mg/dL High 70 - 100 mg/dL [facility] Interpretation and review of laboratory results Abnormal [facility] Potassium [Moles/Vol] 5.0 mmol/L 3.5 - 5.1 mmol/L [facility] Protein [Mass/Vol] 5.9 g/dL Low 6.3 - 8.2 g/dL [facility] Sodium [Moles/Vol] 141 mmol/L 135 - 145 mmol/L [facility] Urea nitrogen [Mass/Vol] 39 mg/dL High 7 - 17 mg/dL [facility] Laboratory - Chemistry and C hemistry - challengeon 11-05-2023 Base excess Calc (Bld) [Moles/Vol] 14.8 mmol/L High -3.0 - 3.0 mmol/L [facility] CO2 (Bld) [Partial pressure] 80.9 mm[Hg] Critically high [facility] HCO3 (Bld) [Moles/Vol] 44.7 mmol/L High 21.0 - 25.0 mmol/L [facility] Oxygen (Bld) [Partial pressure] 78.3 mm[Hg] Low [facility] pH (Bld) 7.350 [pH] 7.350 - 7.450 pH [facility] Magnesium [Mass/Vol] 2.1 mg/dL 1.6 - 2 .3 mg/dL [facility] No Panel Informationon 11-04 Interpretation and review of laboratory results Abnormal [facility] Interpretation and review of laboratory results Normal [facility] Radiology Study observation (narrative) [facility] Phosphate [Moles/Vol]on 10-07 Phosphate [Mass/Vol] 3.6 mg/dL 2.5 - 4 .5 mg/dL [facility] CBC W Auto Differential pane l (Bld)on 11-04-2023 Basophils (Bld) [#/Vol] 0.0 10*3/uL 0.0 - 0.2 10*3/uL [facility] Basophils/100 WBC (Bld) 0.2 % 0.0 - 2.0 % [facility] Eosinophils (Bld) [#/Vol] 0.0 10*3/uL 0.0 - 0.5 10*3/uL [facility] Eosinophils/100 WBC (Bld) 0.0 % 0.0 - 6.0 % [facility] Erythrocyte distribution width (RBC) [Ratio] 12.5 % 11.5 - 15.0 % [facility] Hematocrit (Bld) [Volume fraction] 43.2 % 35.0 - 47.0 % [facility] Hemoglobin (Bld) [Mass/Vol] 13.4 g/dL 11.7 - 16.0 g/dL [facility] Immature granulocytes (Bld) [#/Vol] 0.1 10*3/uL High NINF - 0.1 10*3/uL [facility] Immature granulocytes/100 WBC (Bld) 1.4 % 0.0 - 2.0 % [facility] Interpretation and review of laboratory results Abnormal [facility] Lymphocytes (Bld) [#/Vol] 0.5 10*3/uL Low 1.0 - 4.3 10*3/uL [facility] Lymphocytes/100 WBC (Bld) 5.6 % Low 15.0 - 45.0 % [facility] MCH (RBC) [Entitic mass] 30.5 pg 26. 0 - 34.0 pg [facility] MCHC (RBC) [Mass/Vol] 31.0 % 30.5 - 36.0 % [facility] MCV (RBC) [Entitic vol] 98.2 fL 77.0 - 99.0 fL [facility] Monocytes (Bld) [#/Vol] 0.6 10*3/uL 0.0 - 0.9 10*3/uL [facility] Monocytes/100 WBC (Bld) 7.3 % 5.0 - 13.0 % [facility] Neutrophils (Bld) [#/Vol] 7.2 10*3/uL 1.8 - 7.5 10*3/uL [facility] Neutrophils/100 WBC (Bld) 85.5 % High 38.0 - 82.0 % [facility] Nucleated RBC/100 WBC (Bld) [Ratio] 0.0 % [facility] Platelet mean volume (Bld) [Entitic vol] 9.8 fL 9.0 - 12.7 fL [facility] Platelets (Bld) [#/Vol] 274 10*3/uL 140 - 440 10*3/uL [facility] RBC (Bld) [#/Vol] 4.40 10*6/uL 3.80 - 5.2 0 10*6/uL [facility] WBC (Bld) [#/Vol] 8.5 10*3/uL 3.6 - 10.7 10*3/uL [facility] Calcium.ionized [Moles/Vol]o n 11-04-2023 Calcium.ionized (Bld) [Moles/Vol] 4.30 mg/dL 4.30 - 5.20 mg/dL [facility] Interpretation and review of laboratory results Normal [facility] PH, IONIZED CALCIUM 7.46 7.31 - 7.46 [facility] Comprehensive metabolic 1998 panelon 11-04-2023 Albumin [Mass/Vol] 3.5 g/dL 3.5 - 5.0 g/dL [facility] ALP [Catalytic activity/Vol] 55 U/L 38 - 126 U/L [facility] ALT [Catalytic activity/Vol] 46 U/L High 0 - 34 U/L [facility] Anion gap [Moles/Vol] 5 mmol/L 3 - 13 mmol/L [facility] AST [Catalytic activity/Vol] 23 U/L 15 - 46 U/L [facility] Bilirubin [Mass/Vol] 0.4 mg/dL 0.2 - 1 .3 mg/dL [facility] Calcium [Mass/Vol] 9.0 mg/dL 8.4 - 10. 4 mg/dL [facility] Chloride [Moles/Vol] 98 mmol/L 98 - 10 7 mmol/L [facility] CO2 [Moles/Vol] 36 mmol/L High 22 - 30 mmol/L [facility] Creatinine [Mass/Vol] 0.73 mg/dL 0.52 - 1.04 mg/dL [facility] GFR/1.73 sq M.predicted MDRD (S/P/Bld) [Vol rate/Area] - PINF [facility] Glucose [Mass/Vol] 266 mg/dL High 70 - 100 mg/dL [facility] Interpretation and review of laboratory results Abnormal [facility] Potassium [Moles/Vol] 5.1 mmol/L 3.5 - 5.1 mmol/L [facility] Protein [Mass/Vol] 6.2 g/dL Low 6.3 - 8.2 g/dL [facility] Sodium [Moles/Vol] 139 mmol/L 135 - 145 mmol/L [facility] Urea nitrogen [Mass/Vol] 38 mg/dL High 7 - 17 mg/dL [facility] Laboratory - Chemistry and C hemistry - challengeon 11-04-2023 Magnesium [Mass/Vol] 2.1 mg/dL 1.6 - 2 .3 mg/dL [facility] No Panel Informationon 11-03 Interpretation and review of laboratory results Normal [facility] Phosphate [Moles/Vol]on 10-07 Phosphate [Mass/Vol] 3.8 mg/dL 2.5 - 4 .5 mg/dL [facility] Bacteria identified Aer cx N om (Lower resp)Ordered By: Marian Loja on 11-03-2023 Gram Stain Result Rare Epithelial cell s per low power field Abnormal [facility] Gram Stain Result Many Polymorphonucle ar leukocytes per low power field Abnormal [facility] Gram Stain Result Positive Abnormal [facility] ealt Gram Stain Result Negative Abnormal [facility] Interpretation and review of laboratory results Abnormal [facility] CBC W Auto Differential pane l (Bld)Ordered By: Lea Waldrop on 11-03-2023 Erythrocyte distribution width (RBC) [Ratio] 12.6 % 11.5 - 15.0 % [facility] Hematocrit (Bld) [Volume fraction] 41.8 % 35.0 - 47.0 % [facility] Hemoglobin (Bld) [Mass/Vol] 13.3 g/dL 11.7 - 16.0 g/dL [facility] Interpretation and review of laboratory results Normal [facility] MCH (RBC) [Entitic mass] 30.5 pg 26. 0 - 34.0 pg [facility] MCHC (RBC) [Mass/Vol] 31.8 % 30.5 - 36.0 % [facility] MCV (RBC) [Entitic vol] 95.9 fL 77.0 - 99.0 fL [facility] Platelet mean volume (Bld) [Entitic vol] 10.1 fL 9.0 - 12.7 fL [facility] Platelets (Bld) [#/Vol] 266 10*3/uL 140 - 440 10*3/uL [facility] RBC (Bld) [#/Vol] 4.36 10*6/uL 3.80 - 5.2 0 10*6/uL [facility] WBC (Bld) [#/Vol] 10.3 10*3/uL 3.6 - 10.7 10*3/uL [facility] Calcium.ionized [Moles/Vol]o n 11-03-2023 Calcium.ionized (Bld) [Moles/Vol] 4.70 mg/dL 4.30 - 5.20 mg/dL [facility] Interpretation and review of laboratory results Normal [facility] PH, IONIZED CALCIUM 7.37 7.31 - 7.46 [facility] Comprehensive metabolic 1998 panelon 11-03-2023 Albumin [Mass/Vol] 3.5 g/dL 3.5 - 5.0 g/dL [facility] ALP [Catalytic activity/Vol] 63 U/L 38 - 126 U/L [facility] ALT [Catalytic activity/Vol] 38 U/L High 0 - 34 U/L [facility] Anion gap [Moles/Vol] 7 mmol/L 3 - 13 mmol/L [facility] AST [Catalytic activity/Vol] 26 U/L 15 - 46 U/L [facility] Bilirubin [Mass/Vol] 0.4 mg/dL 0.2 - 1 .3 mg/dL [facility] Calcium [Mass/Vol] 9.2 mg/dL 8.4 - 10. 4 mg/dL [facility] Chloride [Moles/Vol] 95 mmol/L Low 98 - 10 7 mmol/L [facility] CO2 [Moles/Vol] 36 mmol/L High 22 - 30 mmol/L [facility] Creatinine [Mass/Vol] 0.83 mg/dL 0.52 - 1.04 mg/dL [facility] GFR/1.73 sq M.predicted MDRD (S/P/Bld) [Vol rate/Area] 78.3 mL/min/{1.73_m2} - PINF [facility] th Glucose [Mass/Vol] 221 mg/dL High 70 - 100 mg/dL [facility] Interpretation and review of laboratory results Abnormal [facility] Potassium [Moles/Vol] 4.4 mmol/L 3.5 - 5.1 mmol/L [facility] Protein [Mass/Vol] 6.4 g/dL 6.3 - 8.2 g/dL [facility] Sodium [Moles/Vol] 138 mmol/L 135 - 145 mmol/L [facility] Urea nitrogen [Mass/Vol] 42 mg/dL High 7 - 17 mg/dL [facility] Laboratory - Chemistry and C hemistry - challengeon 11-03-2023 Magnesium [Mass/Vol] 2.1 mg/dL 1.6 - 2 .3 mg/dL [facility] Laboratory - Hematology and Cell countson 11-03-2023 Band form neutrophils (Bld) [#/Vol] 0.1 10*3/uL High NINF - 0.0 10*3/uL [facility] Band form neutrophils/100 WBC (Bld) 1 % High NINF - 0 % [facility] Lymphocytes (Bld) [#/Vol] 0.5 10*3/uL Low 1.0 - 4.3 10*3/uL [facility] Lymphocytes/100 WBC (Bld) 5 % Low 15 - 45 % [facility] Monocytes (Bld) [#/Vol] 0.4 10*3/uL 0.0 - 0.9 10*3/uL [facility] Monocytes/100 WBC (Bld) 4 % Low 5 - 13 % [facility] Neutrophils (Bld) [#/Vol] 9.4 10*3/uL High 1.8 - 7.5 10*3/uL [facility] RBC morphology finding Nom (Bld) Normal [facility] Segmented neutrophils/100 WBC (Bld) 90 % High 38 - 82 % [facility] Laboratory - Microbiology an d Antimicrobial susceptibilityOrdered By: Marian Loja on 11-03-2023 Bacteria identified Aer cx Nom (Lower resp) Few respiratory christina present. [facility] No Panel Informationon 11-02 Bands Manual 1 [facility] Interpretation and review of laboratory results Abnormal [facility] Lymphocytes Manual 5 [facility] Monocytes Manual 4 [facility] alth Neutrophils Manual 90 [facility] Interpretation and review of laboratory results Normal [facility] No Panel InformationOrdered By: Lea Waldrop on 11-03-2023 [facility] Phosphate [Moles/Vol]on 10-06 Phosphate [Mass/Vol] 3.5 mg/dL 2.5 - 4 .5 mg/dL [facility] CBC W Auto Differential pane l (Bld)Ordered By: Gordon Prieto on 11-02-2023 Erythrocyte distribution width (RBC) [Ratio] 12.7 % 11.5 - 15.0 % [facility] Hematocrit (Bld) [Volume fraction] 41.7 % 35.0 - 47.0 % [facility] Hemoglobin (Bld) [Mass/Vol] 13.3 g/dL 11.7 - 16.0 g/dL [facility] MCH (RBC) [Entitic mass] 30.4 pg 26. 0 - 34.0 pg [facility] MCHC (RBC) [Mass/Vol] 31.9 % 30.5 - 36.0 % [facility] MCV (RBC) [Entitic vol] 95.4 fL 77.0 - 99.0 fL [facility] Platelet mean volume (Bld) [Entitic vol] 9.9 fL 9.0 - 12.7 fL [facility] Platelets (Bld) [#/Vol] 237 10*3/uL 140 - 440 10*3/uL [facility] RBC (Bld) [#/Vol] 4.37 10*6/uL 3.80 - 5.2 0 10*6/uL [facility] WBC (Bld) [#/Vol] 13.9 10*3/uL High 3.6 - 10.7 10*3/uL [facility] CT Chest WO contraston 11-01 [facility] RADIOLOG[facility] Radiology Study observation (narrative) [facility] Calcium.ionized [Moles/Vol]o n 11-02-2023 Calcium.ionized (Bld) [Moles/Vol] 4.30 mg/dL 4.30 - 5.20 mg/dL [facility] Interpretation and review of laboratory results Normal [facility] PH, IONIZED CALCIUM 7.43 7.31 - 7.46 [facility] Comprehensive metabolic 1998 panelon 11-02-2023 Albumin [Mass/Vol] 3.7 g/dL 3.5 - 5.0 g/dL [facility] ALP [Catalytic activity/Vol] 62 U/L 38 - 126 U/L [facility] ALT [Catalytic activity/Vol] 29 U/L 0 - 34 U/L [facility] Anion gap [Moles/Vol] 9 mmol/L 3 - 13 mmol/L [facility] AST [Catalytic activity/Vol] 23 U/L 15 - 46 U/L [facility] Bilirubin [Mass/Vol] 0.5 mg/dL 0.2 - 1 .3 mg/dL [facility] Calcium [Mass/Vol] 9.0 mg/dL 8.4 - 10. 4 mg/dL [facility] Chloride [Moles/Vol] 93 mmol/L Low 98 - 10 7 mmol/L [facility] CO2 [Moles/Vol] 34 mmol/L High 22 - 30 mmol/L [facility] Creatinine [Mass/Vol] 0.73 mg/dL 0.52 - 1.04 mg/dL [facility] GFR/1.73 sq M.predicted MDRD (S/P/Bld) [Vol rate/Area] - PINF [facility] Glucose [Mass/Vol] 226 mg/dL High 70 - 100 mg/dL [facility] Interpretation and review of laboratory results Abnormal [facility] Potassium [Moles/Vol] 3.9 mmol/L 3.5 - 5.1 mmol/L [facility] Protein [Mass/Vol] 6.8 g/dL 6.3 - 8.2 g/dL [facility] Sodium [Moles/Vol] 136 mmol/L 135 - 145 mmol/L [facility] Urea nitrogen [Mass/Vol] 43 mg/dL High 7 - 17 mg/dL [facility] Laboratory - Chemistry and C hemistry - challengeon 11-02-2023 Magnesium [Mass/Vol] 2.3 mg/dL 1.6 - 2 .3 mg/dL [facility] Laboratory - Hematology and Cell countson 11-02-2023 Lymphocytes (Bld) [#/Vol] 0.0 10*3/uL Low 1.0 - 4.3 10*3/uL [facility] Lymphocytes/100 WBC (Bld) 0 % Low 15 - 45 % [facility] Monocytes (Bld) [#/Vol] 0.6 10*3/uL 0.0 - 0.9 10*3/uL [facility] Monocytes/100 WBC (Bld) 4 % Low 5 - 13 % [facility] Neutrophils (Bld) [#/Vol] 13.3 10*3/uL High 1.8 - 7.5 10*3/uL [facility] RBC morphology finding Nom (Bld) Normal [facility] Segmented neutrophils/100 WBC (Bld) 96 % High 38 - 82 % [facility] No Panel InformationOrdered By: Gordon Prieto on 11-02-2023 Interpretation and review of laboratory results Abnormal [facility] No Panel Informationon 11-01 Lymphocytes Manual 0 [facility] Monocytes Manual 4 [facility] alth Neutrophils Manual 96 [facility] Interpretation and review of laboratory results Normal [facility] Phosphate [Moles/Vol]on 10-06 Phosphate [Mass/Vol] 4.3 mg/dL 2.5 - 4 .5 mg/dL [facility] CBC W Auto Differential pane l (Bld)Ordered By: Carleen Bonilla on 11-01-2023 Erythrocyte distribution width (RBC) [Ratio] 12.9 % 11.5 - 15.0 % [facility] Hematocrit (Bld) [Volume fraction] 46.3 % 35.0 - 47.0 % [facility] Hemoglobin (Bld) [Mass/Vol] 14.4 g/dL 11.7 - 16.0 g/dL [facility] Interpretation and review of laboratory results Abnormal [facility] MCH (RBC) [Entitic mass] 29.9 pg 26. 0 - 34.0 pg [facility] MCHC (RBC) [Mass/Vol] 31.1 % 30.5 - 36.0 % [facility] MCV (RBC) [Entitic vol] 96.3 fL 77.0 - 99.0 fL [facility] Platelet mean volume (Bld) [Entitic vol] 10.0 fL 9.0 - 12.7 fL [facility] Platelets (Bld) [#/Vol] 234 10*3/uL 140 - 440 10*3/uL [facility] RBC (Bld) [#/Vol] 4.81 10*6/uL 3.80 - 5.2 0 10*6/uL [facility] WBC (Bld) [#/Vol] 12.7 10*3/uL High 3.6 - 10.7 10*3/uL [facility] Comprehensive metabolic 1998 panelon 11-01-2023 Albumin [Mass/Vol] 3.9 g/dL 3.5 - 5.0 g/dL [facility] ALP [Catalytic activity/Vol] 75 U/L 38 - 126 U/L [facility] ALT [Catalytic activity/Vol] 29 U/L 0 - 34 U/L [facility] Anion gap [Moles/Vol] 9 mmol/L 3 - 13 mmol/L [facility] AST [Catalytic activity/Vol] 22 U/L 15 - 46 U/L [facility] Bilirubin [Mass/Vol] 0.6 mg/dL 0.2 - 1 .3 mg/dL [facility] Calcium [Mass/Vol] 9.3 mg/dL 8.4 - 10. 4 mg/dL [facility] Chloride [Moles/Vol] 91 mmol/L Low 98 - 10 7 mmol/L [facility] CO2 [Moles/Vol] 37 mmol/L High 22 - 30 mmol/L [facility] Creatinine [Mass/Vol] 1.10 mg/dL High 0.52 - 1.04 mg/dL [facility] GFR/1.73 sq M.predicted MDRD (S/P/Bld) [Vol rate/Area] 55.9 mL/min/{1.73_m2} Low - PINF [facility] th Glucose [Mass/Vol] 204 mg/dL High 70 - 100 mg/dL [facility] Potassium [Moles/Vol] 3.9 mmol/L 3.5 - 5.1 mmol/L [facility] Protein [Mass/Vol] 7.1 g/dL 6.3 - 8.2 g/dL [facility] Sodium [Moles/Vol] 137 mmol/L 135 - 145 mmol/L [facility] Urea nitrogen [Mass/Vol] 38 mg/dL High 7 - 17 mg/dL [facility] Laboratory - Chemistry and C hemistry - challengeon 11-01-2023 Procalcitonin [Mass/Vol] 0.55 ng/mL High 0.0 0 - 0.09 ng/mL [facility] Magnesium [Mass/Vol] 2.5 mg/dL High 1.6 - 2 .3 mg/dL [facility] Base excess Calc (Bld) [Moles/Vol] 11.8 mmol/L High -3.0 - 3.0 mmol/L [facility] CO2 (Bld) [Partial pressure] 82.5 mm[Hg] Critically high [facility] HCO3 (Bld) [Moles/Vol] 42.6 mmol/L High 21.0 - 25.0 mmol/L [facility] Oxygen (Bld) [Partial pressure] 65.1 mm[Hg] Low [facility] pH (Bld) 7.321 [pH] Low 7.350 - 7.450 pH [facility] Laboratory - Hematology and Cell countson 11-01-2023 Band form neutrophils (Bld) [#/Vol] 0.1 10*3/uL High NINF - 0.0 10*3/uL [facility] Band form neutrophils/100 WBC (Bld) 1 % High NINF - 0 % [facility] Lymphocytes (Bld) [#/Vol] 0.4 10*3/uL Low 1.0 - 4.3 10*3/uL [facility] Lymphocytes/100 WBC (Bld) 3 % Low 15 - 45 % [facility] Monocytes (Bld) [#/Vol] 0.4 10*3/uL 0.0 - 0.9 10*3/uL [facility] Monocytes/100 WBC (Bld) 3 % Low 5 - 13 % [facility] Neutrophils (Bld) [#/Vol] 11.9 10*3/uL High 1.8 - 7.5 10*3/uL [facility] RBC morphology finding Nom (Bld) Normal [facility] Segmented neutrophils/100 WBC (Bld) 93 % High 38 - 82 % [facility] No Panel Informationon 10-31 Interpretation and review of laboratory results Normal [facility] Legionella pneumophila Ag Not detected Not Detected [facility] Streptococcus pneumoniae Ag Not detected Not Detected [facility] Bands Manual 1 [facility] Interpretation and review of laboratory results Abnormal [facility] Lymphocytes Manual 3 [facility] Monocytes Manual 3 [facility] alth Neutrophils Manual 93 [facility] Interpretation and review of laboratory results Abnormal [facility] AFlutter vs sinus tachycardia with artifact. Normal axis, normal [place] QRS and QTC Intervals. Nonspecific ST segment changes V3-V6 but this may be 2/2 artifact. No clear-cut STEMI. No LVH. PVC. Previous EKG NSR. Electronically Signed On 11-01-2023 05:14:18 EDT by Rylan Cuevas MD - 11/01/2023 IMPRESSION: AFlutter vs sinus tachycardia with artifact. Normal axis, normal [place] QRS and QTC Intervals. Nonspecific ST segment changes V3-V6 but this may be 2/2 artifact. No clear-cut STEMI. No LVH. PVC. Previous EKG NSR. Electronically Signed On 11-01-2023 05:14:18 EDT [facility] [id number] [facility] Interpretation and review of laboratory results Abnormal [facility] Radiology Study observation (narrative) [facility] No Panel InformationOrdered By: Rylan Gan on 11-01-2023 P [place] 67 degrees [facility] [employer] Work Phone: CA Interval 125 ms [facility] [employer] Work Phone: QRS [place] 48 degrees [facility] [employer] Work Phone: QRSD Interval 82 ms [facility] Work Phone: QT Interval 271 ms [facility] Work Phone: QTC Interval 427 ms [facility] Work Phone: T Wave [place] 69 degrees [facility] Work Phone: [facility] Work Phone: Phosphate [Moles/Vol]on 10-06 Interpretation and review of laboratory results Normal [facility] Phosphate [Mass/Vol] 4.3 mg/dL 2.5 - 4 .5 mg/dL [facility] Procalcitonin [Mass/Vol]on 11-01-2023 Interpretation and review of laboratory results Abnormal [facility] Respiratory pathogens DNA an d RNA panel TRAN+non-probe (Lower resp)Ordered By: Angella Parks on 11-01-2023 Acinetobacter baumannii complex Not detected Not Detected [facility] Adenovirus Not detected Not Detected [facility] Chlamydia pneumoniae Not detected Not Detected [facility] Enterobacter cloacae complex Not detected Not Detected [facility] Escherichia coli Not detected Not Detected [facility] FLUAV RNA TRAN+non-probe Ql (Lower resp) Not detected Not Detected [facility] FLUBV RNA TRAN+non-probe Ql (Lower resp) Not detected Not Detected [facility] Haemophilus influenzae Detected Abnormal Not Detected [facility] Human Metapneumovirus Not detected Not Detected [facility] Human Rhinovirus/Enterovirus Not detected Not Detected [facility] Interpretation and review of laboratory results Abnormal [facility] Klebsiella (Enterobacter) aerogenes Not detected Not Detected [facility] Klebsiella oxytoca Not detected Not Detected [facility] Klebsiella pneumoniae Not detected Not Detected [facility] Legionella pneumophila Not detected Not Detected [facility] Moraxella catarrhalis Not detected Not Detected [facility] Mycoplasma pneumoniae Not detected Not Detected [facility] Parainfluenza virus Not detected Not Detected [facility] Proteus spp Not detected Not Detected [facility] Pseudomonas aeruginosa Not detected Not Detected [facility] RSV RNA TRAN+probe Ql (Resp) Not detected Not Detected [facility] S. agalactiae Org specific cx Ql (Vag fld) Not detected Not Detected [facility] SARS-CoV-2 (COVID-19) RNA TRAN+non-probe Ql (Nph) Detected Abnormal Not Detected [facility] Serratia marcescens Not detected Not Detected [facility] Staphylococcus aureus Not detected Not Detected [facility] Streptococcus pneumoniae Not detected Not Detected [facility] Streptococcus pyogenes Not detected Not Detected [facility] Respiratory pathogens DNA an d RNA panel TRAN+non-probe (Nph)on 11-01-2023 Adenovirus Not detected Not Detected [facility] B. pertussis DNA TRAN+probe Ql (Unsp spec) Not detected Not Detected [facility] Bordetella parapertussis Not detected Not Detected [facility] Chlamydia pneumoniae Not detected Not Detected [facility] Coronavirus 229E Not detected Not Detected [facility] Coronavirus HKU1 Not detected Not Detected [facility] Coronavirus NL63 Not detected Not Detected [facility] Coronavirus OC43 Not detected Not Detected [facility] FLUAV RNA TRAN+non-probe Ql (Nph) Not detected Not Detected [facility] FLUBV RNA TRAN+non-probe Ql (Nph) Not detected Not Detected [facility] Human Metapneumovirus Not detected Not Detected [facility] Human Rhinovirus/Enterovirus Not detected Not Detected [facility] Interpretation and review of laboratory results Normal [facility] Mycoplasma pneumoniae Not detected Not Detected [facility] Parainfluenza 1 Not detected Not Detected [facility] Parainfluenza 2 Not detected Not Detected [facility] Parainfluenza 3 Not detected Not Detected [facility] Parainfluenza 4 Not detected Not Detected [facility] Respiratory Syncytial Virus Not detected Not Detected [facility] SARS-CoV-2 (COVID-19) RNA TRAN+non-probe Ql (Nph) Not detected Not Detected [facility] Vital signsOrdered By: Brianda Gan on 11-01-2023 Heart rate 149 /min bpm [facility] [employer] Work Phone: XR Chest Single viewon 10-31 [facility] Radiology Study observation (narrative) [facility] XR Chest Single viewOrdered By: Mykel Mccurdy on 11-01-2023 [facility] Work Phone: CBC W Auto Differential pane l (Bld)Ordered By: Migue Moreno on 10-31-2023 Basophils (Bld) [#/Vol] 0.1 10*3/uL 0.0 - 0.2 10*3/uL [facility] Basophils/100 WBC (Bld) 0.3 % 0.0 - 2.0 % [facility] Eosinophils (Bld) [#/Vol] 0.0 10*3/uL 0.0 - 0.5 10*3/uL [facility] Eosinophils/100 WBC (Bld) 0.1 % 0.0 - 6.0 % [facility] Erythrocyte distribution width (RBC) [Ratio] 12.8 % 11.5 - 15.0 % [facility] Hematocrit (Bld) [Volume fraction] 50.6 % High 35.0 - 47.0 % [facility] Hemoglobin (Bld) [Mass/Vol] 16.2 g/dL High 11.7 - 16.0 g/dL [facility] Immature granulocytes (Bld) [#/Vol] 0.2 10*3/uL High NINF - 0.1 10*3/uL [facility] Immature granulocytes/100 WBC (Bld) 1.3 % 0.0 - 2.0 % [facility] Interpretation and review of laboratory results Abnormal [facility] Lymphocytes (Bld) [#/Vol] 1.2 10*3/uL 1.0 - 4.3 10*3/uL [facility] Lymphocytes/100 WBC (Bld) 6.8 % Low 15.0 - 45.0 % [facility] MCH (RBC) [Entitic mass] 31.0 pg 26. 0 - 34.0 pg [facility] MCHC (RBC) [Mass/Vol] 32.0 % 30.5 - 36.0 % [facility] MCV (RBC) [Entitic vol] 96.9 fL 77.0 - 99.0 fL [facility] Monocytes (Bld) [#/Vol] 1.8 10*3/uL High 0.0 - 0.9 10*3/uL [facility] Monocytes/100 WBC (Bld) 9.9 % 5.0 - 13.0 % [facility] Neutrophils (Bld) [#/Vol] 14.4 10*3/uL High 1.8 - 7.5 10*3/uL [facility] Neutrophils/100 WBC (Bld) 81.6 % 38.0 - 82.0 % [facility] Nucleated RBC/100 WBC (Bld) [Ratio] 0.0 % [facility] Platelet mean volume (Bld) [Entitic vol] 10.0 fL 9.0 - 12.7 fL [facility] Platelets (Bld) [#/Vol] 254 10*3/uL 140 - 440 10*3/uL [facility] RBC (Bld) [#/Vol] 5.22 10*6/uL High 3.80 - 5.2 0 10*6/uL [facility] WBC (Bld) [#/Vol] 17.6 10*3/uL High 3.6 - 10.7 10*3/uL [facility] Comprehensive metabolic 1998 panelon 10-31-2023 Albumin [Mass/Vol] 4.2 g/dL 3.5 - 5.0 g/dL [facility] ALP [Catalytic activity/Vol] 82 U/L 38 - 126 U/L [facility] ALT [Catalytic activity/Vol] 29 U/L 0 - 34 U/L [facility] Anion gap [Moles/Vol] 5 mmol/L 3 - 13 mmol/L [facility] AST [Catalytic activity/Vol] 32 U/L 15 - 46 U/L [facility] Bilirubin [Mass/Vol] 0.9 mg/dL 0.2 - 1 .3 mg/dL [facility] Calcium [Mass/Vol] 9.8 mg/dL 8.4 - 10. 4 mg/dL [facility] Chloride [Moles/Vol] 93 mmol/L Low 98 - 10 7 mmol/L [facility] CO2 [Moles/Vol] 40 mmol/L High 22 - 30 mmol/L [facility] Creatinine [Mass/Vol] 0.79 mg/dL 0.52 - 1.04 mg/dL [facility] GFR/1.73 sq M.predicted MDRD (S/P/Bld) [Vol rate/Area] 83.1 mL/min/{1.73_m2} - PINF [facility] th Glucose [Mass/Vol] 265 mg/dL High 70 - 100 mg/dL [facility] Interpretation and review of laboratory results Abnormal [facility] Potassium [Moles/Vol] 3.8 mmol/L 3.5 - 5.1 mmol/L [facility] Protein [Mass/Vol] 8.0 g/dL 6.3 - 8.2 g/dL [facility] Sodium [Moles/Vol] 137 mmol/L 135 - 145 mmol/L [facility] Urea nitrogen [Mass/Vol] 21 mg/dL High 7 - 17 mg/dL [facility] Laboratory - Chemistry and C hemistry - challengeon 10-31-2023 Troponin I.cardiac [Mass/Vol] 0.036 ng/mL High NINF - 0.034 ng/mL [facility] Troponin I.cardiac [Mass/Vol] 0.040 ng/mL High NINF - 0.034 ng/mL [facility] Base excess Calc (Bld) [Moles/Vol] 9.5 mmol/L High -3.0 - 3.0 mmol/L [facility] CO2 (Bld) [Partial pressure] 88.3 mm[Hg] Critically high [facility] HCO3 (Bld) [Moles/Vol] 41.5 mmol/L High 21.0 - 25.0 mmol/L [facility] Oxygen (Bld) [Partial pressure] 64.0 mm[Hg] Low [facility] pH (Bld) 7.280 [pH] Low 7.350 - 7.450 pH [facility] Troponin I.cardiac [Mass/Vol] ng/mL [facility]/mL [facility] CO2 [Moles/Vol] 44.0 mmol/L High 24.0 - 28.0 mmol/L [facility] HCO3 (Bld) [Moles/Vol] 41.2 mmol/L High 23.0 - 27.0 mmol/L [facility] Oxygen (Bld) [Partial pressure] 62 mm[Hg] mm(Hg) [facility] pH (Bld) 7.231 [pH] Low 7.310 - 7.410 [facility] Natriuretic peptide B [Mass/ Vol]on 10-31-2023 Natriuretic peptide B (Bld) [Mass/Vol] 188 pg/mL <20 - 300 [facility] No Panel Informationon 10-30 FIO2 60 [facility] Interpretation and review of laboratory results Abnormal [facility] Interpretation and review of laboratory results Normal [facility] BASE EXCESS 14.0 mmol/L High -3.0 - 3.0 mmol/L [facility] Interpretation and review of laboratory results Abnormal [facility] pCO2 98 High [facility] Source Of Oxygen Bi-PAP [facility] alth [facility] Radiology Study observation (narrative) [facility] alth Troponin I.cardiac [Mass/Vol ]on 10-31-2023 Interpretation and review of laboratory results Abnormal [facility] Interpretation and review of laboratory results Abnormal [facility] Vital signson 10-31-2023 Oxygen saturation in Blood 84.0 % High 60.0 - 80.0 % [facility] XR Chest Single viewon 10-30 Chronic changes. No acute process. Report Dictated on Electronically Signed By: Tyler Storey DO Electronically Signed Date/Time: 10/31/2023 5:01 PM EDT [facility] Patient Name: KENDRA BUITRAGO : 1960 Exam Date/Time: 10/31/2023 16:43 Procedure: XR CHEST 1 VIEW Ordering Provider: [facility] Reason For Exam: Shortness of breath PORTABLE CHEST: INDICATION: Shortness of breath COMPARISON: No previous studies are available for comparison. Obtained at 1641 hours. A single portable AP radiograph of the chest was obtained. The heart is borderline in size. The mediastinal silhouette is normal. Chronic interstitial changes are present. There are no effusions or acute infiltrates. There is no pleural thickening. The osseous structures are unremarkable. [facility] Tyler Storey DO - 10/31/2023 Patient Name: KENDRA BUITRAGO : 1960 Exam Date/Time: 10/31/2023 16:43 Procedure: XR CHEST 1 VIEW Ordering Provider: [facility] Reason For Exam: Shortness of breath PORTABLE CHEST: INDICATION: Shortness of breath COMPARISON: No previous studies are available for comparison. Obtained at 1641 hours. A single portable AP radiograph of the chest was obtained. The heart is borderline in size. The mediastinal silhouette is normal. Chronic interstitial changes are present. There are no effusions or acute infiltrates. There is no pleural thickening. The osseous structures are unremarkable. IMPRESSION: Chronic changes. No acute process. Report Dictated on Electronically Signed By: Tyler Storey DO Electronically Signed Date/Time: 10/31/2023 5:01 PM EDT [facility] RADIOLOGY SYSTEM [facility] RADIOLOGY SYSTEM [facility] Radiology Study observation (narrative) [facility] XR Chest Single viewOrdered By: Tyler Storey on 10-31-2023 [facility] Work Phone: Comprehensive metabolic 1998 panelon 07-26-2023 Albumin [Mass/Vol] 4.4 g/dL 3.6 - 5.1 g/dL [facility] Albumin/Globulin [Mass ratio] 1.9 {ratio} [facility] ALP [Catalytic activity/Vol] 61 U/L 37 - 153 U/L [facility] ALT [Catalytic activity/Vol] 13 U/L 6 - 29 U/L [facility] AST [Catalytic activity/Vol] 11 U/L 10 - 35 U/L [facility] Bilirubin [Mass/Vol] 0.5 mg/dL 0.2 - 1 .2 mg/dL [facility] Calcium [Mass/Vol] 9.5 mg/dL 8.6 - 10. 4 mg/dL [facility] Chloride [Moles/Vol] 96 mmol/L Low 98 - 11 0 mmol/L [facility] CO2 [Moles/Vol] 37 mmol/L High 20 - 32 mmol/L [facility] Creatinine [Mass/Vol] 0.65 mg/dL 0.50 - 1.05 mg/dL [facility] GFR/1.73 sq M.predicted among non-blacks MDRD (S/P/Bld) [Vol rate/Area] 98 mL/min/{1.73_m2} > OR = 60 mL/min/1.73 m2 [facility] Globulin (S) [Mass/Vol] 2.3 g/dL [facility] Glucose [Mass/Vol] 126 mg/dL High 65 - 99 mg/dL [facility] Comment on above: Fasting reference interval For someone without known diabetes, a glucose value >125 mg/dL indicates that they may have diabetes and this should be confirmed with a follow-up test. Potassium [Moles/Vol] 3.9 mmol/L 3.5 - 5.3 mmol/L [facility] Protein [Mass/Vol] 6.7 g/dL 6.1 - 8.1 g/dL [facility] Sodium [Moles/Vol] 141 mmol/L 135 - 146 mmol/L [facility] Urea nitrogen [Mass/Vol] 16 mg/dL 7 - 25 mg/dL [facility] Urea nitrogen/Creatinine [Mass ratio] SEE NOTE: [facility] Comment on above: Not Reported: BUN an d Creatinine are within reference range. Hemoglobin A1con 07-26-2023 HbA1c (Bld) [Mass fraction] 6.8 % High [facility] Comment on above: For someone without known diabetes, a hemoglobin A1c value of 6.5% or greater indicates that they may have diabetes and this should be confirmed with a follow-up test. For someone with known diabetes, a value <7% indicates that their diabetes is well controlled and a value greater than or equal to 7% indicates suboptimal control. A1c targets should be individualized based on duration of diabetes, age, comorbid conditions, and other considerations. Currently, no consensus exists regarding use of hemoglobin A1c for diagnosis of diabetes for children. HbA1c performed on [employer] platform. Effective 05/25/23 a change in test platforms may have shifted HbA1c results compared to historical results. Lipid 1996 panelon Cholesterol [Mass/Vol] 185 mg/dL [facility] - 200 mg/dL [facility] Cholesterol in HDL [Mass/Vol] 58 mg/dL > OR = 50 [facility] Cholesterol in LDL [Mass/Vol] 99 mg/dL mg/dL (calc) [facility] Comment on above: Reference range: <10 0 Desirable range <100 mg/dL for primary prevention; <70 mg/dL for patients with CHD or diabetic patients with > or = 2 CHD risk factors. LDL-C is now calculated using the Dany-Edgar calculation, which is a validated novel method providing better accuracy than the Friedewald equation in the estimation of LDL-C. Dany ZAPIEN et al. XIMENA. 2013;310(19): 5373-5925 (http://education.Kanmu.com/faq/QZS768) Cholesterol non HDL [Mass/Vol] 127 mg/dL [facility] Comment on above: For patients with di abetes plus 1 major ASCVD risk factor, treating to a non-HDL-C goal of <100 mg/dL (LDL-C of <70 mg/dL) is considered a therapeutic option. Cholesterol.total/Choles terol in HDL [Mass ratio] 3.2 {ratio} [facility] Triglyceride [Mass/Vol] 188 mg/dL High [facility] - 150 mg/dL [facility] Microalbumin/Creatinine rati o panel (U)on 07-26-2023 Albumin DL <= 20 mg/L (U) [Mass/Vol] 3.1 mg/dL See Note: [facility] Comment on above: Reference Range: Reference Range Not established Albumin/Creatinine (U) [Mass ratio] 24 [facility] Comment on above: The ADA defines abnormalities in albumin excretion as follows: Albuminuria Category Result (mcg/mg creatinine) Normal to Mildly increased <30 Moderately increased 30-299 Severely increased > OR = 300 The ADA recommends that at least two of three specimens collected within a 3-6 month period be abnormal before considering a patient to be within a diagnostic category. Creatinine (U) [Mass/Vol] 128 mg/dL 20 - 275 mg/dL [facility] No Panel Informationon 07-26 Interpretation and review of laboratory results Abnormal [facility] Absolute lymphocyte countOrd ered By: Wale Villanueva on 01-22-2023 Lymphocytes Auto (Unsp spec) [#/Vol] 0.64 10*3/uL 0.83-4.51 [facility] Basophil percentageOrdered B y: Wale Villanueva on 01-22-2023 Basophils/100 WBC (Bld) 0.3 % 0-1 [facility] Chloride [Moles/Vol] 99 mmol/L 98-107 [facility] Eosinophils/100 WBC (Bld) 0.0 % 0-5 [facility] Glucose [Mass/Vol] 209 mg/dL 74-106 [facility] Comment on above: Glucose result great er than or equal to 200 mg/dLsuggests DIABETES MELLITUS per A.D.A. criteria. Neutrophils (Bld) [#/Vol] 8.9 10*3/uL 2.0-7.7 [facility] Neutrophils/100 WBC (Bld) 88.1 % 47-70 [facility] Potassium [Moles/Vol] 4.0 mmol/L 3.5-5.1 [facility] Sodium [Moles/Vol] 138 mmol/L 136-145 [facility] WBC (Bld) [#/Vol] 10.1 10*3/uL 4.4-11.0 [facility] Blood erythrocytes count (nu mber/volume)Ordered By: Wale Villanueva on 01-22-2023 RBC (Bld) [#/Vol] 4.78 10*6/uL 4.2-5.4 [facility] Blood hemoglobin measurement (mass/volume)Ordered By: Wale Villanueva on 01-22-2023 Hemoglobin (Bld) [Mass/Vol] 14.7 g/dL 12.0-15.0 [facility] Blood lymphocytes/100 leukoc ytesOrdered By: Wale Villanueva on 01-22-2023 Lymphocytes/100 WBC (Bld) 6.3 % 19-41 [facility] Blood monocytes/100 leukocyt esOrdered By: Wale Villanueva on 01-22-2023 Monocytes/100 WBC (Bld) 4.1 % 0-10 [facility] Blood platelet mean volumeOr dered By: Wale Villanueva on 01-22-2023 Platelet mean volume (Bld) [Entitic vol] 9.8 fL 6.2-12.0 [facility] Determination of erythrocyte mean corpuscular volume (MCV)Ordered By: Wale Villanueva on 01-22-2023 MCV (RBC) [Entitic vol] 99.6 fL 81-99 [facility] Hematocrit Auto (Bld) [Volum e fraction]Ordered By: Wale Villanueva on 01-22-2023 Hematocrit (Bld) [Volume fraction] 47.6 % 37-47 [facility] Laboratory - Chemistry and C hemistry - challengeOrdered By: Wale Villanueva on 01-22-2023 CO2 [Moles/Vol] 36.0 mmol/L 21.0-32.0 [facility] Urea nitrogen/Creatinine [Mass ratio] 29.7 mg/mg 10-20 [facility] Laboratory - Hematology and Cell countsOrdered By: Wale Villanueva on 01-22-2023 Erythrocyte distribution width (RBC) [Entitic vol] 46.7 fL 35.1-43.9 [facility] Erythrocyte distribution width (RBC) [Ratio] 12.5 % 11.6-14.6 [facility] Immature granulocytes/100 WBC (Bld) 1.200 % 0.0-0.9 [facility] Comment on above: IG% - Immature Granu locytes (promyelocytes, myelocytes and metamyelocytes) > 1% indicates that a LEFT SHIFT is Present. MCH (RBC) [Entitic mass] 30.8 pg 27.0-32.0 [facility] Nucleated RBC/100 WBC (Bld) [Ratio] 0 % 0-5 [facility] MCHC Auto (RBC) [Mass/Vol]Or dered By: Wale Villanueva on 01-22-2023 MCHC (RBC) [Mass/Vol] 30.9 g/dL 32-36 [facility] No Panel InformationOrdered By: Wale Villanueva on 01-22-2023 Estimated Creatinine Clearance Calc 74.69 ml/min [facility] Estimated GFR (MDRD) Amer 101 mL/min >60 [facility] Comment on above: GFR Calc Estimated GFR (MDRD) Non-Af Amer 84 mL/min >60 [facility] Comment on above: Non- GFR Calc Platelets bldOrdered By: Sandro Villanueva on 01-22-2023 Platelets (Bld) [#/Vol] 248 10*3/uL 150-450 [facility] Serum or plasma calcium chavez urement (mass/volume)Ordered By: Wale Villanueva on 01-22-2023 Calcium [Mass/Vol] 9.2 mg/dL 8.5-10.1 [facility] Serum or plasma creatinine m easurement (mass/volume)Ordered By: Wale Villanueva on 01-22-2023 Creatinine [Mass/Vol] 0.74 mg/dL 0.55-1.02 [facility] Comment on above: The validity of the calculated GFR & GFRAA in patients over 70 years has not been determined. Clinical correlation is essential. Serum or plasma urea nitroge n measurement (mass/volume)Ordered By: Wale Villanueva on 01-22-2023 Urea nitrogen [Mass/Vol] 22 mg/dL 12-22 [facility] Thin prep Papanicolaou smear with manual screeningOrdered By: Wale Villanueva on 01-22-2023 Thin prep Papanicolaou smear with manual screening 3 5-15 [facility] Absolute lymphocyte countOrd ered By: Michael Frost on 01-21-2023 Lymphocytes Auto (Unsp spec) [#/Vol] 1.74 10*3/uL 0.83-4.51 [facility] Basophil percentageOrdered B y: Michael Frost on 01-21-2023 Basophils/100 WBC (Bld) 0.7 % 0-1 [facility] Chloride [Moles/Vol] 100 mmol/L 98-107 [facility] Eosinophils/100 WBC (Bld) 1.3 % 0-5 [facility] Glucose [Mass/Vol] 181 mg/dL 74-106 [facility] Comment on above: Fasting Glucose resu lt greater than or equal to 126 mg/dL suggests DIABETES MELLITUS per A.D.A. criteria. Neutrophils (Bld) [#/Vol] 7.1 10*3/uL 2.0-7.7 [facility] Neutrophils/100 WBC (Bld) 73.0 % 47-70 [facility] Potassium [Moles/Vol] 3.9 mmol/L 3.5-5.1 [facility] Comment on above: Slight Hemolysis, Re sult may be falsely increased. Sodium [Moles/Vol] 142 mmol/L 136-145 [facility] WBC (Bld) [#/Vol] 9.7 10*3/uL 4.4-11.0 [facility] Blood erythrocytes count (nu mber/volume)Ordered By: Michael Frost on 01-21-2023 RBC (Bld) [#/Vol] 4.97 10*6/uL 4.2-5.4 [facility] Blood hemoglobin measurement (mass/volume)Ordered By: Michael Frost on 01-21-2023 Hemoglobin (Bld) [Mass/Vol] 15.5 g/dL 12.0-15.0 [facility] Blood lymphocytes/100 leukoc ytesOrdered By: Michael Frost on 01-21-2023 Lymphocytes/100 WBC (Bld) 17.9 % 19-41 [facility] Blood monocytes/100 leukocyt esOrdered By: Michael Frost on 01-21-2023 Monocytes/100 WBC (Bld) 6.6 % 0-10 [facility] Blood platelet mean volumeOr dered By: Michael Frost on 01-21-2023 Platelet mean volume (Bld) [Entitic vol] 9.3 fL 6.2-12.0 [facility] COVID-19 virus antigen assay Ordered By: Michael Frost on 01-21-2023 SARS-CoV-2 (COVID-19) Ag IA.rapid Ql (Resp) [facility] Determination of erythrocyte mean corpuscular volume (MCV)Ordered By: Michael Frost on 01-21-2023 MCV (RBC) [Entitic vol] 99.2 fL 81-99 [facility] HCO3 (BldA) [Moles/Vol]Order ed By: Michael Frost on 01-21-2023 HCO3 (Bld) [Moles/Vol] 38 mmol/L 22-26 [facility] Hematocrit Auto (Bld) [Volum e fraction]Ordered By: Michael Frost on 01-21-2023 Hematocrit (Bld) [Volume fraction] 49.3 % 37-47 [facility] Laboratory - Chemistry and C hemistry - challengeOrdered By: Michael Frost on 01-21-2023 CO2 [Moles/Vol] 40 mmol/L 23-33 [facility] CO2 [Moles/Vol] 39.0 mmol/L 21.0-32.0 [facility] Natriuretic peptide B (Bld) [Mass/Vol] 23.1 pg/mL 0-100 [facility] Urea nitrogen/Creatinine [Mass ratio] 22.4 mg/mg 10-20 [facility] Laboratory - Hematology and Cell countsOrdered By: Michael Frost on 01-21-2023 Erythrocyte distribution width (RBC) [Entitic vol] 47.1 fL 35.1-43.9 [facility] Erythrocyte distribution width (RBC) [Ratio] 12.7 % 11.6-14.6 [facility] Immature granulocytes/100 WBC (Bld) 0.500 % 0.0-0.9 [facility] Comment on above: IG% - Immature Granu locytes (promyelocytes, myelocytes and metamyelocytes) > 1% indicates that a LEFT SHIFT is Present. MCH (RBC) [Entitic mass] 31.2 pg 27.0-32.0 [facility] Nucleated RBC/100 WBC (Bld) [Ratio] 0 % 0-5 [facility] MCHC Auto (RBC) [Mass/Vol]Or dered By: Michael Frost on 01-21-2023 MCHC (RBC) [Mass/Vol] 31.4 g/dL 32-36 [facility] No Panel InformationOrdered By: Michael Frost on 01-21-2023 Bed Mix Venous Bld PCO2 at Pat Temp 69.2 mmHg 41-51 [facility] Blood Gas Liter Flow 7.0 /min [facility] Blood Gas Specimen Type SHINE [facility] Oxygen Delivery Device AeroMask [facility] Venous Blood Base Excess 12 mmol/L -1.0-3.5 [facility] Estimated Creatinine Clearance Calc 77.84 ml/min [facility] Estimated GFR (MDRD) Amer 106 mL/min >60 [facility] Comment on above: GFR Calc Estimated GFR (MDRD) Non-Af Amer 87 mL/min >60 [facility] Comment on above: Non- GFR Calc Troponin I High Sensitivity 11 pg/mL 3.0-54.0 [facility] Comment on above: Please Note: [place] t Units and Gender Specific Reference Ranges. For more information see Policy Stat Procedure [place] High Sensitivity Troponin (TNIH) and attachments. PO2 venousOrdered By: Virgie Frost on 01-21-2023 Oxygen (BldV) [Partial pressure] 41 mm[Hg] 25-40 [facility] Platelets bldOrdered By: Donna Frost on 01-21-2023 Platelets (Bld) [#/Vol] 226 10*3/uL 150-450 [facility] Serum or plasma calcium chavez urement (mass/volume)Ordered By: Michael Frost on 01-21-2023 Calcium [Mass/Vol] 9.3 mg/dL 8.5-10.1 [facility] Serum or plasma creatinine m easurement (mass/volume)Ordered By: Michael Frost on 01-21-2023 Creatinine [Mass/Vol] 0.71 mg/dL 0.55-1.02 [facility] Comment on above: The validity of the calculated GFR & GFRAA in patients over 70 years has not been determined. Clinical correlation is essential. Serum or plasma urea nitroge n measurement (mass/volume)Ordered By: Michael Frost on 01-21-2023 Urea nitrogen [Mass/Vol] 16 mg/dL 7-18 [facility] Thin prep Papanicolaou smear with manual screeningOrdered By: Michael Frost on 01-21-2023 Thin prep Papanicolaou smear with manual screening 3 5-15 [facility] Vital signsOrdered By: Krystal Frost on 01-21-2023 Oxygen saturation in Blood 70 % 50-70 [facility] pH measurementOrdered By: Anne Marie Frost on 01-21-2023 pH (Unsp spec) 7.35 [pH] 7.32-7.42 [facility] Basophil percentageon 2021 WBC (Bld) [#/Vol] 9.6 10*3/uL 4.4-11.0 [facility] Work Phone: Blood erythrocytes count (nu mber/volume)on 03-11-2022 RBC (Bld) [#/Vol] 5.13 10*6/uL 4.2-5.4 [facility] Work Phone: Blood hemoglobin measurement (mass/volume)on 03-11-2022 Hemoglobin (Bld) [Mass/Vol] 16.4 g/dL 12.0-15.0 [facility] Work Phone: [phone] Blood platelet mean volumeon 03-11-2022 Platelet mean volume (Bld) [Entitic vol] 9.8 fL 6.2-12.0 [facility] Work Phone: [phone] Determination of erythrocyte mean corpuscular volume (MCV)on 03-11-2022 MCV (RBC) [Entitic vol] 98.2 fL 81-99 [facility] Work Phone: [phone] Hematocrit Auto (Bld) [Volum e fraction]on 03-11-2022 Hematocrit (Bld) [Volume fraction] 50.4 % 37-47 [facility] Work Phone: Laboratory - Hematology and Cell countson 03-11-2022 Erythrocyte distribution width (RBC) [Entitic vol] 47.9 fL 35.1-43.9 [facility] Work Phone: Erythrocyte distribution width (RBC) [Ratio] 13.1 % 11.6-14.6 [facility] Work Phone: [phone] MCH (RBC) [Entitic mass] 32.0 pg 27.0-32.0 [facility] Work Phone: MCHC Auto (RBC) [Mass/Vol]on 03-11-2022 MCHC (RBC) [Mass/Vol] 32.5 g/dL 32-36 [facility] Work Phone: Platelets bldon 03-11-2022 Platelets (Bld) [#/Vol] 273 10*3/uL 150-450 [facility] Work Phone: MG Breast Tomosynthesis Scr Blon 08-05-2021 MG Breast Tomosynthesis Scr Bl Patient Name: KENDRA BUITRAGO Mammography ACCESSION EXAM DATE/TIME PROCEDURE ORDERING PROVIDER [id number] 08/05/2021 08:19 EST MG Breast Tomosynthesis MD MULLINS DARRELL BI Scr [place] CPT code [id number] Reason For Exam (MG Breast Tomosynthesis BI Scr) screening Report TIME SINCE LAST MAMMOGRAM: Last mammogram was performed 1 year and 1 month ago. REASON FOR EXAM: screening, asymptomatic. PROCEDURE: MG BREAST TOMOSYNTHESIS BL SCR: AUGUST 05, 2021 - 2D/3D Procedure 3D Bilateral CC and MLO view(s) were taken. 2D Bilateral CC and MLO view(s) were taken. Prior study comparison: July 05, 2020, bilateral MG breast tomosynthesis bl scr performed at [facility]. June 30, 2019, bilateral MG breast tomosynthesis bl scr performed at [facility]. June 28, 2018, bilateral MG breast tomosynthesis bl scr [facility]. TISSUE DENSITY: BIRADS B - There are scattered fibroglandular densities. . PATIENT CANCER HISTORY: No Personal History of Cancer FAMILY CANCER HISTORY: Mother Lung Cancer age 69 . FINDINGS: No suspicious masses, architectural distortions or suspiciously clustered microcalcifications are identified. There are no significant changes when compared with prior studies. IMPRESSION: No mammographic evidence of malignancy. Markings on images: BB's = Nipples; skin lesions Open [place] = Palpable Line = Scar 2D digital mammography and tomosynthesis imaging were performed and reviewed with CAD. ASSESSMENT: Category 1 Negative Mammography Report RECOMMENDATION: Routine screening mammogram of both breasts in 1 year. . Report Dictated on Cancer Risk Assessment: This risk assessment is based on patient provided information collected in a risk survey taken at the time of this examination. Lifetime breast cancer risk: Average Risk - If greater than or equal to 20%, consider annual mammogram and annual screening Breast MRI or follow up in high risk clinic. A score of Average Risk indicates a score of less than 20%. Is the patient at elevated risk based on the HBOC criteria? No (Hereditary Breast and Ovarian Cancer) - If yes, consider genetic counseling and testing with high risk follow up. Is the patient at elevated risk based on the Lockhart Syndrome criteria? No - If yes, consider genetic counseling and testing with high risk follow up. Final Signed Date and Time: 08/05/2021 8:35 am Signed by: MD FRANCIS KERISTEN L Normal [facility] Tobias Digital Screen Anatoliy barryreji 08-05-2021 Patient Name: KENDRA BUITRAGO Mammography ACCESSION EXAM DATE/TIME PROCEDURE ORDERING PROVIDER [id number] 08/05/2021 08:19 EST MG Breast Tomosynthesis MD MULLINS DARRELL BI Scr LEROY CPT code 61588 [id number] Reason For Exam (MG Breast Tomosynthesis BI Scr) screening Report TIME SINCE LAST MAMMOGRAM: Last mammogram was performed 1 year and 1 month ago. REASON FOR EXAM: screening, asymptomatic. PROCEDURE: MG BREAST TOMOSYNTHESIS BL SCR: AUGUST 05, 2021 - 2D/3D Procedure 3D Bilateral CC and MLO view(s) were taken. 2D Bilateral CC and MLO view(s) were taken. Prior study comparison: July 05, 2020, bilateral MG breast tomosynthesis bl scr performed at [facility]. June 30, 2019, bilateral MG breast tomosynthesis bl scr performed at [facility]. June 28, 2018, bilateral MG breast tomosynthesis bl scr performed at [facility]. TISSUE DENSITY: BIRADS B - There are scattered fibroglandular densities. . PATIENT CANCER HISTORY: No Personal History of Cancer FAMILY CANCER HISTORY: Mother Lung Cancer age 69 . FINDINGS: No suspicious masses, architectural distortions or suspiciously clustered microcalcifications are identified. There are no significant changes when compared with prior studies. IMPRESSION: No mammographic evidence of malignancy. Markings on images: BB's = Nipples; skin lesions Open [place] = Palpable Line = Scar 2D digital mammography and tomosynthesis imaging were performed and reviewed with CAD. ASSESSMENT: Category 1 Negative Mammography Report RECOMMENDATION: Routine screening mammogram of both breasts in 1 year. . Report Dictated on Cancer Risk Assessment: This risk assessment is based on patient provided information collected in a risk survey taken at the time of this examination. Lifetime breast cancer risk: Average Risk - If greater than or equal to 20%, consider annual mammogram and annual screening Breast MRI or follow up in high risk clinic. A score of Average Risk indicates a score of less than 20%. Is the patient at elevated risk based on the HBOC criteria? No (Hereditary Breast and Ovarian Cancer) - If yes, consider genetic counseling and testing with high risk follow up. Is the patient at elevated risk based on the Lockhart Syndrome criteria? No - If yes, consider genetic counseling and testing with high risk follow up. --- Final --- Signed Date and Time: 08/05/2021 8:35 am Signed by: MD PENNY, GOPAL Blanchard [facility] Gopal Francis MD - 08/05/2021 Patient Name: KENDRA BUITRAGO Mammography ACCESSION EXAM DATE/TIME PROCEDURE ORDERING PROVIDER [id number] 08/05/2021 08:19 EST MG Breast Tomosynthesis MD MULLINS DARRELL BI Scr GERI CPT code [id number] Reason For Exam (MG Breast Tomosynthesis BI Scr) screening Report TIME SINCE LAST MAMMOGRAM: Last mammogram was performed 1 year and 1 month ago. REASON FOR EXAM: screening, asymptomatic. PROCEDURE: MG BREAST TOMOSYNTHESIS BL SCR: AUGUST 05, 2021 - 2D/3D Procedure 3D Bilateral CC and MLO view(s) were taken. 2D Bilateral CC and MLO view(s) were taken. Prior study comparison: July 05, 2020, bilateral MG breast tomosynthesis bl scr performed at [facility]. June 30, 2019, bilateral MG breast tomosynthesis bl scr performed at [facility]. June 28, 2018, bilateral MG breast tomosynthesis bl scr performed at [facility]. TISSUE DENSITY: BIRADS B - There are scattered fibroglandular densities. . PATIENT CANCER HISTORY: No Personal History of Cancer FAMILY CANCER HISTORY: Mother Lung Cancer age 69 . FINDINGS: No suspicious masses, architectural distortions or suspiciously clustered microcalcifications are identified. There are no significant changes when compared with prior studies. IMPRESSION: No mammographic evidence of malignancy. Markings on images: BB's = Nipples; skin lesions Open [place] = Palpable Line = Scar 2D digital mammography and tomosynthesis imaging were performed and reviewed with CAD. ASSESSMENT: Category 1 Negative Mammography Report RECOMMENDATION: Routine screening mammogram of both breasts in 1 year. . Report Dictated on Cancer Risk Assessment: This risk assessment is based on patient provided information collected in a risk survey taken at the time of this examination. Lifetime breast cancer risk: Average Risk - If greater than or equal to 20%, consider annual mammogram and annual screening Breast MRI or follow up in high risk clinic. A score of Average Risk indicates a score of less than 20%. Is the patient at elevated risk based on the HBOC criteria? No (Hereditary Breast and Ovarian Cancer) - If yes, consider genetic counseling and testing with high risk follow up. Is the patient at elevated risk based on the Lockhart Syndrome criteria? No - If yes, consider genetic counseling and testing with high risk follow up. --- Final --- Signed Date and Time: 08/05/2021 8:35 am Signed by: MD FRANCIS KERISTEN L [facility] Work Phone: Radiology Study observation (narrative) [facility] Work Phone: [facility] Tobias Digital Screen Bila teralOrdered By: Gopal Francis on 08-05-2021 [facility] Work Phone: [facility] TOBIAS DIGITAL SCREEN BILA TERALOrdered By: Yasemin Menard on 06-30-2019 Patient Name: KENDRA BUITRAGO ---Mammography--- Exam Date/Time 06/30/2019 08:00:00 EST Exam MG Breast Tomosynthesis BI Scr Ordering Physician ZANDER MENARD HOLLY S Accession Number [id number] CPT4 Codes 68957 (MG Breast Tomosynthesis Scr Bl), 40727 (MG MAMMO 2D SCREENING) Reason For Exam screening Report TIME SINCE LAST MAMMOGRAM: Last mammogram was performed 1 year ago. REASON FOR EXAM: screening, asymptomatic. PROCEDURE: MG BREAST TOMOSYNTHESIS BL SCR: JUNE 30, 2019 - 2D/3D Procedure 3D Bilateral CC and MLO view(s) were taken. 2D Bilateral CC and MLO view(s) were taken. Prior study comparison: June 28, 2018, bilateral MG breast tomosynthesis bl scr performed at [facility]. March 12, 2017, bilateral MG mammogram digital screening performed at [facility]. July 12, 2015, bilateral screening mammogram performed at [facility]. TISSUE DENSITY: There are scattered fibroglandular densities. . FINDINGS: No suspicious masses, architectural distortions or suspiciously clustered microcalcifications are identified. There is no evidence of skin thickening or nipple retraction. There are no significant changes when compared with prior studies. Markings on images: BB's = Nipples; skin lesions Open [place] = Palpable Line = Scar 2D digital mammography and tomosynthesis imaging were performed and reviewed with CAD. ASSESSMENT: Category 1 Negative RECOMMENDATION: Routine screening mammogram of both breasts in 1 year. . Report Dictated on Cancer Risk Assessment: This risk assessment is based on patient provided information collected in a risk survey taken at the time of this examination. Lifetime breast cancer risk: 8.6% - If greater than or equal to 20%, consider annual mammogram and annual screening Breast MRI or follow up in high risk clinic. Is the patient at elevated risk based on the HBOC criteria? No (Hereditary Breast and Ovarian Cancer) - If yes, consider genetic counseling and testing with high risk follow up. HNPCC mutation risk (Lockhart Syndrome): 1% - if greater than or equal to 5%, consider genetic counseling, testing and screening colonoscopy. --- Final --- Signed Date and Time: 06/30/2019 11:22 am Signed by: MD KISHOR, SEBASTIAN CHRISTINE Work Phone: [employer] [employer] Incoming Radiology Results From [facility] - 06/30/2019 11:27 AM EST Patient Name: KENDRA BUITRAGO ---Mammography--- Exam Date/Time 06/30/2019 08:00:00 EST Exam MG Breast Tomosynthesis BI Scr Ordering Physician ZANDER MENARD HOLLY S Accession Number [id number] CPT4 Codes 25218 (MG Breast Tomosynthesis Scr Bl), 70029 (MG MAMMO 2D SCREENING) Reason For Exam screening Report TIME SINCE LAST MAMMOGRAM: Last mammogram was performed 1 year ago. REASON FOR EXAM: screening, asymptomatic. PROCEDURE: MG BREAST TOMOSYNTHESIS BL SCR: JUNE 30, 2019 - 2D/3D Procedure 3D Bilateral CC and MLO view(s) were taken. 2D Bilateral CC and MLO view(s) were taken. Prior study comparison: June 28, 2018, bilateral MG breast tomosynthesis bl scr performed at [facility]. March 12, 2017, bilateral MG mammogram digital screening performed at [facility]. July 12, 2015, bilateral screening mammogram performed at [facility]. TISSUE DENSITY: There are scattered fibroglandular densities. . FINDINGS: No suspicious masses, architectural distortions or suspiciously clustered microcalcifications are identified. There is no evidence of skin thickening or nipple retraction. There are no significant changes when compared with prior studies. Markings on images: BB's = Nipples; skin lesions Open [place] = Palpable Line = Scar 2D digital mammography and tomosynthesis imaging were performed and reviewed with CAD. ASSESSMENT: Category 1 Negative RECOMMENDATION: Routine screening mammogram of both breasts in 1 year. . Report Dictated on Cancer Risk Assessment: This risk assessment is based on patient provided information collected in a risk survey taken at the time of this examination. Lifetime breast cancer risk: 8.6% - If greater than or equal to 20%, consider annual mammogram and annual screening Breast MRI or follow up in high risk clinic. Is the patient at elevated risk based on the HBOC criteria? No (Hereditary Breast and Ovarian Cancer) - If yes, consider genetic counseling and testing with high risk follow up. HNPCC mutation risk (Lockhart Syndrome): 1% - if greater than or equal to 5%, consider genetic counseling, testing and screening colonoscopy. --- Final --- Signed Date and Time: 06/30/2019 11:22 am Signed by: MD KISHOR, SEBASTIAN Tao [facility] Work Phone: Bronchoalveolar lavage cultu re with Gram stain Respiratory microbial culture or Staphylococcus aureus isolated. [facility] Work Phone: Gram stain for investigation of transfusion reaction Microscopic observation Gram stain Nom (Unsp spec) [facility] Work Phone: Microbial respiratory cultur e Bacteria identified Respiratory culture Nom (Unsp spec) or Staphylococcus aureus isolated. [facility] Work Phone: Vital Signs Date Time Vital Sign Value Performing Clinician Facility 02-21-2025 11:46-0400 SaO2% (BldA) [Mass fraction] 82 % Vu Mullins MD Work Phone: [facility] 02-21-2025 11:07-0400 Body height 170.2 cm Vu Mullins MD Work Phone: [facility] 02-21-2025 11:07-0400 Body mass index (BMI) [Ratio] 30.29 kg/m2 Vu Mullins MD Work Phone: [facility] 02-21-2025 11:07-0400 Body weight 87.73 kg Vu Mullins MD Work Phone: [facility] 02-21-2025 11:07-0400 Diastolic blood pressure 64 mm[Hg] Vu Mullins MD Work Phone: [facility] 02-21-2025 11:07-0400 Heart rate 78 /min Vu Mullins MD Work Phone: [facility] 02-21-2025 11:07-0400 Systolic blood pressure 125 mm[Hg] Vu Mullins MD Work Phone: [facility] 08-10-2024 11:32-0500 Diastolic blood pressure 65 mm[Hg] Vu Mullins MD Work Phone: [facility] 08-10-2024 11:32-0500 SaO2% (BldA) [Mass fraction] 90 % Vu Mullins MD Work Phone: [facility] 08-10-2024 11:32-0500 Systolic blood pressure 104 mm[Hg] Vu Mullins MD Work Phone: [facility] 08-10-2024 11:13-0500 Body height 170.2 cm Vu Mullins MD Work Phone: [facility] [employer] [facility] 08-10-2024 11:13-0500 Body mass index (BMI) [Ratio] 30.42 kg/m2 Vu Mullins MD Work Phone: [facility] 08-10-2024 11:13-0500 Body weight 88.09 kg Vu Mullins MD Work Phone: [facility] 08-10-2024 11:13-0500 Heart rate 90 /min Vu Mullins MD Work Phone: [facility] 08-08-2024 07:50-0500 Body height 170.2 cm Vu Mullins MD Work Phone: [facility] [employer] [facility] 08-08-2024 07:50-0500 Body mass index (BMI) [Ratio] 29.7 kg/m2 Vu Mullins MD Work Phone: [facility] [employer] [facility] 08-08-2024 07:50-0500 Body weight 86 kg Vu Mullins MD Work Phone: [facility] [employer] [facility] 08-08-2024 07:50-0500 Diastolic blood pressure 67 mm[Hg] Vu Mullins MD Work Phone: [facility] [employer] [facility] 08-08-2024 07:50-0500 Heart rate 92 /min Vu Mullins MD Work Phone: [facility] [employer] 08-08-2024 07:50-0500 SaO2% (BldA) [Mass fraction] 91 % Vu Mullins MD Work Phone: [facility] [employer] 08-08-2024 07:50-0500 Systolic blood pressure 124 mm[Hg] Vu Mullins MD Work Phone: [facility] [employer] [facility] 06-21-2024 14:12-0500 SaO2% (BldA) [Mass fraction] 94 % Vu Mullins MD Work Phone: [employer] Comment on above: 5 liters o2 06-21-2024 13:48-0500 Body height 170.2 cm Vu Mullins MD Work Phone: [facility] [employer] 06-21-2024 13:48-0500 Body mass index (BMI) [Ratio] 29.63 kg/m2 Vu Mullins MD Work Phone: [facility] 06-21-2024 13:48-0500 Body weight 85.82 kg Vu Mullins MD Work Phone: [facility] [employer] [facility] 06-21-2024 13:48-0500 Diastolic blood pressure 53 mm[Hg] Vu Mullins MD Work Phone: [facility] 06-21-2024 13:48-0500 Heart rate 89 /min Vu Mullins MD Work Phone: [facility] [employer] [facility] 06-21-2024 13:48-0500 Systolic blood pressure 107 mm[Hg] Vu Mullins MD Work Phone: [facility] 05-03-2024 08:41-0500 Body height 170.2 cm Vu Mullins MD Work Phone: [facility] 05-03-2024 08:41-0500 Body mass index (BMI) [Ratio] 29.91 kg/m2 Vu Mullins MD Work Phone: [facility] 05-03-2024 08:41-0500 Body temperature 98.8 [degF] Vu Mullins MD Work Phone: [facility] 05-03-2024 08:41-0500 Body weight 86.64 kg Vu Mullins MD Work Phone: [facility] 05-03-2024 08:41-0500 Diastolic blood pressure 60 mm[Hg] Vu Mullins MD Work Phone: [facility] 05-03-2024 08:41-0500 Heart rate 93 /min Vu Mullins MD Work Phone: [facility] [employer] 05-03-2024 08:41-0500 SaO2% (BldA) [Mass fraction] 88 % Vu Mullins MD Work Phone: [facility] 05-03-2024 08:41-0500 Systolic blood pressure 124 mm[Hg] Vu Mullins MD Work Phone: [facility] 04-12-2024 09:27-0500 Diastolic blood pressure 71 mm[Hg] Vu Mullins MD Work Phone: [facility] [employer] 04-12-2024 09:27-0500 Heart rate 87 /min Vu Mullins MD Work Phone: [facility] 04-12-2024 09:27-0500 SaO2% (BldA) [Mass fraction] 90 % Vu Mullins MD Work Phone: [facility] 04-12-2024 09:27-0500 Systolic blood pressure 151 mm[Hg] Vu Mullins MD Work Phone: [facility] 04-12-2024 09:05-0500 Body height 170.2 cm Vu Mullins MD Work Phone: [facility] 04-12-2024 09:05-0500 Body mass index (BMI) [Ratio] 30.29 kg/m2 Vu Mullins MD Work Phone: [facility] 04-12-2024 09:05-0500 Body temperature 99 [degF] Vu Mullins MD Work Phone: [facility] 04-12-2024 09:05-0500 Body weight 87.73 kg Vu Mullins MD Work Phone: [facility] 03-17-2024 10:26-0400 Body height 170.2 cm Vu Mullins MD Work Phone: [facility] 03-17-2024 10:26-0400 Body mass index (BMI) [Ratio] 29.95 kg/m2 Vu Mullins MD Work Phone: [facility] 03-17-2024 10:26-0400 Body weight 86.73 kg Vu Mullins MD Work Phone: [facility] 03-17-2024 10:26-0400 Diastolic blood pressure 70 mm[Hg] Vu Mullins MD Work Phone: [facility] 03-17-2024 10:26-0400 Heart rate 83 /min Vu Mullins MD Work Phone: [facility] 03-17-2024 10:26-0400 SaO2% (BldA) [Mass fraction] 95 % Vu Mullins MD Work Phone: [facility] 03-17-2024 10:26-0400 Systolic blood pressure 131 mm[Hg] Vu Mullins MD Work Phone: [facility] 03-09-2024 09:42-0400 Body height 170.2 cm Vu Mullins MD Work Phone: [facility] 03-09-2024 09:42-0400 Body mass index (BMI) [Ratio] 30.13 kg/m2 Vu Mullins MD Work Phone: [facility] 03-09-2024 09:42-0400 Body weight 87.27 kg Vu Mullins MD Work Phone: [facility] 03-09-2024 09:42-0400 Diastolic blood pressure 68 mm[Hg] Vu Mullins MD Work Phone: [facility] 03-09-2024 09:42-0400 Heart rate 91 /min Vu Mullins MD Work Phone: [facility] 03-09-2024 09:42-0400 SaO2% (BldA) [Mass fraction] 93 % Vu Mullins MD Work Phone: [facility] 03-09-2024 09:42-0400 Systolic blood pressure 118 mm[Hg] Vu Mullins MD Work Phone: [facility] 01-21-2024 08:18-0400 Body height 170.2 cm Vu Mullins MD Work Phone: [facility] 01-21-2024 08:18-0400 Body mass index (BMI) [Ratio] 29.66 kg/m2 Vu Mullins MD Work Phone: [facility] 01-21-2024 08:18-0400 Body weight 85.91 kg Vu Mullins MD Work Phone: [facility] 01-21-2024 08:18-0400 Diastolic blood pressure 72 mm[Hg] Vu Mullins MD Work Phone: [facility] 01-21-2024 08:18-0400 Heart rate 90 /min Vu Mullins MD Work Phone: [facility] 01-21-2024 08:18-0400 SaO2% (BldA) [Mass fraction] 94 % Vu Mullins MD Work Phone: [employer] 01-21-2024 08:18-0400 Systolic blood pressure 120 mm[Hg] Vu Mullins MD Work Phone: [facility] 11-25-2023 11:35-0400 Diastolic blood pressure 72 mm[Hg] Vu Mullins MD Work Phone: [facility] 11-25-2023 11:35-0400 Heart rate 97 /min Vu Mullins MD Work Phone: [facility] 11-25-2023 11:35-0400 SaO2% (BldA) [Mass fraction] 93 % Vu Mullins MD Work Phone: [facility] 11-25-2023 11:35-0400 Systolic blood pressure 97 mm[Hg] Vu Mullins MD Work Phone: [facility] 11-25-2023 11:12-0400 Body height 170.2 cm Vu Mullins MD Work Phone: [facility] 11-25-2023 11:12-0400 Body mass index (BMI) [Ratio] 29.41 kg/m2 Vu Mullins MD Work Phone: [facility] 11-25-2023 11:12-0400 Body weight 85.19 kg Vu Mullins MD Work Phone: [facility] 11-19-2023 09:35-0400 Body height 170.2 cm Vu Mullins MD Work Phone: [facility] 11-19-2023 09:35-0400 Body mass index (BMI) [Ratio] 29.19 kg/m2 Vu Mullins MD Work Phone: [facility] 11-19-2023 09:35-0400 Body weight 84.55 kg Vu Mullins MD Work Phone: [facility] 11-19-2023 09:35-0400 Diastolic blood pressure 80 mm[Hg] Vu Mullins MD Work Phone: [facility] 11-19-2023 09:35-0400 Heart rate 90 /min Vu Mullins MD Work Phone: [facility] 11-19-2023 09:35-0400 SaO2% (BldA) [Mass fraction] 90 % Vu Mullins MD Work Phone: [facility] 11-19-2023 09:35-0400 Systolic blood pressure 136 mm[Hg] Vu Mullins MD Work Phone: [facility] 11-10-2023 11:40-0400 Heart rate 80 /min Kwan Harry MD Work Phone: [facility] 11-10-2023 11:40-0400 Respiratory rate 16 /min Kwan Harry MD Work Phone: [facility] 11-10-2023 11:40-0400 SaO2% (BldA) [Mass fraction] 91 % Kwan Harry MD Work Phone: [facility] 11-10-2023 11:31-0400 Body temperature 98.91 [degF] Kwan Hrary MD Work Phone: [facility] 11-10-2023 11:31-0400 Diastolic blood pressure 79 mm[Hg] Kwan Harry MD Work Phone: [facility] 11-10-2023 11:31-0400 Systolic blood pressure 182 mm[Hg] Kwan Harry MD Work Phone: [facility] 11-08-2023 07:00-0400 Body mass index (BMI) [Ratio] 30.52 kg/m2 Kwan Harry MD Work Phone: [facility] 11-08-2023 07:00-0400 Body weight 88.4 kg Kwan Harry MD Work Phone: [facility] 11-06-2023 07:50-0400 Body height 170.2 cm Kwan Harry MD Work Phone: [facility] 11-05-2023 06:18-0400 SaO2% (BldA) [Mass fraction] 93.8 % Kwan Harry MD Work Phone: [facility] 11-01-2023 04:06-0400 SaO2% (BldA) [Mass fraction] 89.0 % Kwan Harry MD Work Phone: [facility] 10-31-2023 19:52-0400 SaO2% (BldA) [Mass fraction] 87.2 % Kwan Harry MD Work Phone: [facility] 10-15-2023 11:17-0400 Body height 170.2 cm Vu Mullins MD Work Phone: [facility] 10-15-2023 11:17-0400 Body mass index (BMI) [Ratio] 30.23 kg/m2 Vu Mullins MD Work Phone: [facility] 10-15-2023 11:17-0400 Body weight 87.54 kg Vu Mullins MD Work Phone: [facility] 10-15-2023 11:17-0400 Diastolic blood pressure 70 mm[Hg] Vu Mullins MD Work Phone: [facility] 10-15-2023 11:17-0400 Heart rate 87 /min Vu Mullins MD Work Phone: [facility] 10-15-2023 11:17-0400 SaO2% (BldA) [Mass fraction] 87 % Vu Mullins MD Work Phone: [facility] 10-15-2023 11:17-0400 Systolic blood pressure 137 mm[Hg] Vu Mullins MD Work Phone: [facility] 08-16-2023 14:10-0400 Diastolic blood pressure 71 mm[Hg] Marilee Bridenthal TRAUMA NURSE - PROFESSOR OF FORESTRY Work Phone: [facility] 08-16-2023 14:10-0400 Systolic blood pressure 109 mm[Hg] Marilee Bridenthal TRAUMA NURSE - PROFESSOR OF FORESTRY Work Phone: [facility] 08-16-2023 13:28-0400 Body height 170.2 cm Marilee Bridenthal TRAUMA NURSE - PROFESSOR OF FORESTRY Work Phone: [facility] 08-16-2023 13:28-0400 Body mass index (BMI) [Ratio] 28.82 kg/m2 Marilee Olivaal TRAUMA NURSE - PROFESSOR OF FORESTRY Work Phone: [employer] 08-16-2023 13:28-0400 Body temperature 98.91 [degF] Marilee Olivaal TRAUMA NURSE - PROFESSOR OF FORESTRY Work Phone: [employer] 08-16-2023 13:28-0400 Body weight 83.46 kg Marilee Olivaal TRAUMA NURSE - PROFESSOR OF FORESTRY Work Phone: [employer] 08-16-2023 13:28-0400 Heart rate 108 /min Marilee Olivaal TRAUMA NURSE - PROFESSOR OF FORESTRY Work Phone: [employer] 07-23-2023 08:03-0500 Body height 170.2 cm Vu Mullins MD Work Phone: [employer] 07-23-2023 08:03-0500 Body mass index (BMI) [Ratio] 30.48 kg/m2 Vu Mullins MD Work Phone: [employer] 07-23-2023 08:03-0500 Body weight 88.27 kg Vu Mullins MD Work Phone: [employer] 07-23-2023 08:03-0500 Diastolic blood pressure 68 mm[Hg] Vu Mullins MD Work Phone: [employer] 07-23-2023 08:03-0500 Heart rate 86 /min Vu Mullins MD Work Phone: [employer] 07-23-2023 08:03-0500 SaO2% (BldA) [Mass fraction] 89 % Vu Mullins MD Work Phone: [employer] 07-23-2023 08:03-0500 Systolic blood pressure 111 mm[Hg] Vu Mullins MD Work Phone: [employer] 02-02-2023 07:50-0400 Body height 170.2 cm Vu Mullins MD Work Phone: [facility] 02-02-2023 07:50-0400 Body mass index (BMI) [Ratio] 32.11 kg/m2 Vu Mullins MD Work Phone: [facility] 02-02-2023 07:50-0400 Body weight 92.99 kg Vu Mullins MD Work Phone: [facility] 02-02-2023 07:50-0400 Diastolic blood pressure 79 mm[Hg] Vu Mullins MD Work Phone: [facility] 02-02-2023 07:50-0400 Heart rate 76 /min Vu Mullins MD Work Phone: [facility] 02-02-2023 07:50-0400 SaO2% (BldA) [Mass fraction] 86 % Vu Mullins MD Work Phone: [facility] Comment on above: on 3L oxygen 02-02-2023 07:50-0400 Systolic blood pressure 121 mm[Hg] Vu Mullins MD Work Phone: [facility] 01-22-2023 14:04-0400 Inhaled oxygen flow rate 4 L/min Dr. Vu Mullins Work Phone: [facility] 01-22-2023 14:02-0400 Body temperature 98.4 [degF] Dr. Vu Mullins Work Phone: [facility] 01-22-2023 14:02-0400 Diastolic blood pressure 70 mm[Hg] Dr. Vu Mullins Work Phone: [facility] 01-22-2023 14:02-0400 Heart rate 100 /min Dr. Vu Mullins Work Phone: [facility] 01-22-2023 14:02-0400 Respiratory rate 19 /min Dr. Vu Mullins Work Phone: [facility] 01-22-2023 14:02-0400 SaO2% (BldA) [Mass fraction] 92 % Dr. Vu Mullins Work Phone: [facility] 01-22-2023 14:02-0400 Systolic blood pressure 153 mm[Hg] Dr. Vu Mullins Work Phone: [facility] 01-21-2023 12:02-0400 Body height 170.[address] Vu Mullins Work Phone: [facility] 01-21-2023 12:02-0400 Body mass index (BMI) [Ratio] 32.1 kg/m2 Dr. Vu Mullins Work Phone: [facility] 01-21-2023 12:02-0400 Body weight 93.[address] Vu Mullins Work Phone: [facility] 01-21-2023 11:17-0400 Body temperature 98.4 [degF] [facility] 01-21-2023 11:17-0400 Diastolic blood pressure 68 mm[Hg] [facility] 01-21-2023 11:17-0400 Heart rate 77 /min [facility] 01-21-2023 11:17-0400 Inhaled oxygen flow rate 4 L/min [facility] 01-21-2023 11:17-0400 Respiratory rate 18 /min [facility] 01-21-2023 11:17-0400 SaO2% (BldA) [Mass fraction] 91 % [facility] 01-21-2023 11:17-0400 Systolic blood pressure 129 mm[Hg] [facility] 01-21-2023 08:53-0400 Inhaled oxygen concentration 15 % [facility] 01-21-2023 08:48-0400 Body height 170.18 cm [facility] 01-21-2023 08:48-0400 Body mass index (BMI) [Ratio] 33.3 kg/m2 [facility] 01-21-2023 08:48-0400 Body weight 96.7 kg [facility] 01-21-2023 07:45-0400 Diastolic blood pressure 74 mm[Hg] Vu Mullins MD Work Phone: [employer] 01-21-2023 07:45-0400 Heart rate 83 /min Vu Mullins MD Work Phone: [employer] 01-21-2023 07:45-0400 SaO2% (BldA) [Mass fraction] 80 % Vu Mullins MD Work Phone: [employer] 01-21-2023 07:45-0400 Systolic blood pressure 113 mm[Hg] Vu Mullins MD Work Phone: [employer] 01-21-2023 07:13-0400 Body height 170.2 cm Vu Mullins MD Work Phone: [employer] 01-21-2023 07:13-0400 Body mass index (BMI) [Ratio] 32.48 kg/m2 Vu Mullins MD Work Phone: [employer] 01-21-2023 07:13-0400 Body weight 94.08 kg Vu Mullins MD Work Phone: [employer] 07-28-2022 10:56-0500 Body mass index (BMI) [Ratio] 33.2 kg/m2 Marileerossi Murray TRAUMA NURSE - PROFESSOR OF FORESTRY Work Phone: [employer] 07-28-2022 10:56-0500 Body weight 96.16 kg Marilee Murray TRAUMA NURSE - PROFESSOR OF FORESTRY Work Phone: [employer] 07-16-2022 08:46-0500 Body height 170.2 cm Vu Mullins MD Work Phone: [employer] 07-16-2022 08:46-0500 Body mass index (BMI) [Ratio] 33.3 kg/m2 Vu Mullins MD Work Phone: [employer] 07-16-2022 08:46-0500 Body weight 96.44 kg Vu Mullins MD Work Phone: [employer] 07-16-2022 08:46-0500 Diastolic blood pressure 68 mm[Hg] Vu Mullins MD Work Phone: [facility] 07-16-2022 08:46-0500 Heart rate 83 /min Vu Mullins MD Work Phone: [facility] 07-16-2022 08:46-0500 Systolic blood pressure 139 mm[Hg] Vu Mullins MD Work Phone: [facility] 09-24-2021 14:27-0400 Body temperature 97.3 [degF] [facility] Work Phone: 09-24-2021 14:27-0400 Diastolic blood pressure 70 mm[Hg] [facility] Work Phone: 09-24-2021 14:27-0400 Heart rate 84 /min [facility] Work Phone: 09-24-2021 14:27-0400 Respiratory rate 16 /min [facility] Work Phone: 09-24-2021 14:27-0400 SaO2% (BldA) [Mass fraction] 92 % [facility] Work Phone: 09-24-2021 14:27-0400 Systolic blood pressure 119 mm[Hg] [facility] Work Phone: 09-24-2021 12:30-0400 Body height 170.18 cm [facility] Work Phone: 09-24-2021 12:30-0400 Body mass index (BMI) [Ratio] 33 kg/m2 [facility] Work Phone: 09-24-2021 12:30-0400 Body weight 95.7 kg [facility] Work Phone: 04-17-2019 08:31-0500 Body Temperature 99.7 [degF] [employer], [place] 04-17-2019 08:31-0500 BP Diastolic 76 mm[Hg] [facility] [place] 04-17-2019 08:31-0500 BP Systolic 135 mm[Hg] Annabel Gill [facility], [place] 04-17-2019 08:31-0500 Pulse (Heart Rate) 71 /min Annabel Gutierrez [facility], [place] 04-17-2019 08:31-0500 Pulse Oximetry 95 % Annabel Gill [facility] 04-17-2019 08:31-0500 Respiratory Rate 16 /min Annabel Gill [facility] 04-17-2019 06:41-0500 BMI (Body Mass Index) 29.83 kg/m2 Annabel Gutierrez [facility], [place] 04-17-2019 06:41-0500 Body weight 86.38 kg Annabelfadi Gill [facility], [place] 04-17-2019 06:41-0500 Height 170.2 cm Annabelfadi Gill [place], [place] 04-03-2019 13:36-0400 Body Temperature 97.3 [degF] Annabelfadi Gill [facility] 04-03-2019 13:36-0400 BP Diastolic 62 mm[Hg] [facility] [place] 04-03-2019 13:36-0400 BP Systolic 115 mm[Hg] [facility] [place] 04-03-2019 13:36-0400 Pulse (Heart Rate) 80 /min Annabelfadi Gutierrez [facility], [place] 04-03-2019 13:36-0400 Pulse Oximetry 94 % Annabel Gill [facility] 04-03-2019 13:36-0400 Respiratory Rate 16 /min Annabelfadi Gill [facility] 04-03-2019 11:45-0400 BMI (Body Mass Index) 29.76 kg/m2 Annabel Vital [facility], [place] 04-03-2019 11:45-0400 Body weight 86.18 kg Annabelfadi Gill [facility] 04-03-2019 11:45-0400 Height [facility].2 cm [facility] [place] Encounters Encounter Date Encounter Type Care Provider Facility Start: 03-01-2025 ambulatory Tomi V Sibilia Georginai ty:[facility] Start: 02-21-2025 End: 02-21-2025 ambulatory VU MULLINS [facility] Start: 02-21-2025 End: 02-21-2025 Office outpatient visit 25 minutes Vu Mullins MD Work Phone: [facility] Comment on above: Chronic obstructive pulmonary disease, unspecified COPD type (HCC) (Primary Dx); Chronic hypoxemic respiratory failure (HCC); Primary hypertension; Type 2 diabetes mellitus without complication, without long-term current use of insulin (HCC); Menopause Start: 02-20-2025 ambulatory Tomi V Sibilia Facili ty:[facility] Start: 02-15-2025 End: 02-15-2025 Refill Marilee Bridenthal TRAUMA NURSE - PROFESSOR OF FORESTRY Work Phone: [facility] Comment on above: Chronic obstructive pulmonary disease, unspecified COPD type (HCC) Start: 02-14-2025 ambulatory Tomi V Sibilia Facili ty:[facility] Start: 01-16-2025 End: 01-16-2025 Refill Marilee Bridenthal TRAUMA NURSE - PROFESSOR OF FORESTRY Work Phone: [facility] Start: 01-11-2025 End: 01-11-2025 Refill Marilee Bridenthal TRAUMA NURSE - PROFESSOR OF FORESTRY Work Phone: [facility] Start: 12-07-2024 End: 12-07-2024 Refill Marilee Bridenthal TRAUMA NURSE - PROFESSOR OF FORESTRY Work Phone: [facility] Comment on above: Chronic obstructive pulmonary disease, unspecified COPD type (HCC) Start: 10-28-2024 End: 10-31-2024 Refill Yasemin Menard TRAUMA NURSE - PROFESSOR OF FORESTRY [facility] Start: 09-22-2024 End: 09-22-2024 Refill Marilee Bridenthal TRAUMA NURSE - PROFESSOR OF FORESTRY Work Phone: [facility] Comment on above: Chronic obstructive pulmonary disease, unspecified COPD type (HCC) Start: 08-10-2024 End: 08-10-2024 Office outpatient visit 10 minutes Vu Mullins MD Work Phone: [facility] Comment on above: Chronic pain of left knee (Primary Dx); Chronic obstructive pulmonary disease, unspecified COPD type (HCC); Chronic hypoxemic respiratory failure (HCC); Primary hypertension Start: 08-10-2024 End: 08-10-2024 ambulatory [facility] Start: 08-08-2024 End: 08-08-2024 Assay of hemosiderin, quant Vu Mullins MD Work Phone: [facility] Work Phone: Start: 08-08-2024 End: 08-08-2024 Patient encounter procedure Vu Mullins MD Work Phone: [facility] Comment on above: Routine general medi mann examination at health care facility (Primary Dx); Chronic obstructive pulmonary disease, unspecified COPD type (HCC); Moderate episode of recurrent major depressive disorder (HCC); Type 2 diabetes mellitus without complication, without long-term current use of insulin (CMS/HCC) (HCC); Chronic hypoxemic respiratory failure (HCC); Primary hypertension; Chronic pain of left knee; Anxiety; Hypertriglyceridemia Start: 08-08-2024 End: 08-08-2024 ambulatory [facility] Start: 08-08-2024 End: 08-08-2024 Encounter for general adult medical examination without abnormal findings VU SUSANNA [facility] Start: 07-15-2024 End: 07-17-2024 Refill Vu Mullins MD Work Phone: [facility] Start: 06-24-2024 End: 06-26-2024 Refill Vu Mullins MD Work Phone: [facility] Comment on above: Chronic obstructive pulmonary disease, unspecified COPD type (HCC) Start: 06-21-2024 End: 06-21-2024 Office outpatient visit 25 minutes Vu Mullins MD Work Phone: [facility] Comment on above: Chronic obstructive pulmonary disease, unspecified COPD type (HCC) (Primary Dx); COPD exacerbation (HCC); Chronic hypoxemic respiratory failure (HCC); Acute non-recurrent frontal sinusitis; Weakness of both lower extremities Start: 06-21-2024 End: 06-21-2024 ambulatory [facility] Start: 06-08-2024 ambulatory [facility] Start: 06-07-2024 ambulatory [facility] Start: 06-07-2024 End: 06-12-2024 Evaluation and management of inpatient Tomasz Mitchell Facility:[facility] Start: 05-03-2024 End: 05-03-2024 ambulatory [facility] Start: 05-03-2024 End: 05-03-2024 Office outpatient visit 10 minutes Vu Mullins MD Work Phone: [facility] Comment on above: Nasal congestion (Pr imary Dx) Start: 04-24-2024 End: 04-24-2024 ambulatory [facility] Start: 04-14-2024 End: 04-14-2024 Refill Vu Mullins MD Work Phone: [facility] Comment on above: Chronic obstructive pulmonary disease, unspecified COPD type (HCC) Start: 04-12-2024 End: 04-12-2024 Office outpatient visit 25 minutes Vu Mullins MD Work Phone: [facility] Comment on above: COPD with acute exac erbation (HCC) (Primary Dx); Chronic hypoxemic respiratory failure (HCC); Primary hypertension; Acute non-recurrent frontal sinusitis Start: 04-12-2024 End: 04-12-2024 ambulatory [facility] Start: 03-30-2024 End: 03-30-2024 Refill Vu Mullins MD Work Phone: [facility] Start: 03-17-2024 End: 03-17-2024 Patient encounter procedure Vu Mullins MD Work Phone: [facility] Comment on above: Chronic pain of left knee (Primary Dx); Menopause Start: 03-17-2024 End: 03-17-2024 ambulatory [facility] Start: 03-13-2024 End: 03-13-2024 Subsequent hospital visit by physician Vu Mullins MD Work Phone: [facility] Comment on above: Chronic pain of left knee Start: 03-13-2024 End: 03-13-2024 [facility] Start: 03-09-2024 End: 03-09-2024 Office outpatient visit 25 minutes Vu Mullins MD Work Phone: [facility] Comment on above: Chronic obstructive pulmonary disease, unspecified COPD type (HCC) (Primary Dx); Refused influenza vaccine; Chronic hypoxemic respiratory failure (HCC); Primary hypertension; Chronic pain of left knee Start: 03-09-2024 End: 03-09-2024 [facility] Start: 02-17-2024 End: 02-17-2024 Orders Only Yasemin Menard TRAUMA NURSE - PROFESSOR OF FORESTRY Work Phone: [facility] Comment on above: Difficulty sleeping (Primary Dx) Start: 02-17-2024 End: 02-17-2024 Refill Yasemin Menard TRAUMA NURSE - PROFESSOR OF FORESTRY Work Phone: [facility] Comment on above: Chronic obstructive pulmonary disease, unspecified COPD type (HCC) Start: 01-21-2024 End: 01-21-2024 Office outpatient visit 25 minutes Vu Mullins MD Work Phone: [facility] Comment on above: Chronic obstructive pulmonary disease, unspecified COPD type (HCC) (Primary Dx); Primary hypertension; Moderate episode of recurrent major depressive disorder (HCC); Type 2 diabetes mellitus without complication, without long-term current use of insulin (CMS/HCC) (HCC); Anxiety; Hypertriglyceridemia; Primary osteoarthritis involving multiple joints Start: 11-25-2023 End: 11-25-2023 Subsequent hospital visit by physician Vu Mullins MD Work Phone: [facility] Comment on above: Subcutaneous nodule of right forearm Start: 11-25-2023 End: 11-25-2023 Office outpatient visit 15 minutes Vu Mullins MD Work Phone: [facility] Comment on above: Subcutaneous nodule of right forearm (Primary Dx) Start: 11-19-2023 End: 11-19-2023 Office outpatient visit 15 minutes Vu Mullins MD Work Phone: [facility] Comment on above: Chronic obstructive pulmonary disease, unspecified COPD type (HCC) (Primary Dx); Chronic hypoxemic respiratory failure (HCC); Primary hypertension Start: 11-04-2023 Telephone encounter Angelique Wilder CNP Work Phone: [facility] Start: 11-02-2023 Refill Vu Mullins MD Work Phone: [facility] Comment on above: Chronic obstructive pulmonary disease, unspecified COPD type (HCC) Start: 10-31-2023 End: 10-31-2023 Subsequent hospital visit by physician [facility] Comment on above: Arrived Start: 10-31-2023 End: 11-10-2023 Evaluation and management of inpatient Kwan Harry MD Work Phone: [facility] Card[facility] Progressive Care Unit PCU 2E Start: 10-19-2023 Refill Vu Mullins MD Work Phone: [facility] Start: 10-15-2023 End: 10-15-2023 Office outpatient visit 15 minutes Vu Mullins MD Work Phone: [facility] Comment on above: Dependent edema (Khushi shyanne Dx); Chronic hypoxemic respiratory failure (HCC); Chronic obstructive pulmonary disease, unspecified COPD type (HCC) Start: 2023 End: 2023 Office outpatient visit 25 minutes Marilee Bridenthal TRAUMA NURSE - PROFESSOR OF FORESTRY Work Phone: [facility] Comment on above: COPD with acute exac erbation (HCC) (Primary Dx); Swelling of left foot Start: 10-04-2023 Refill Yasemin Menard TRAUMA NURSE - PROFESSOR OF FORESTRY Work Phone: [facility] Start: 09-16-2023 Refill Vu Mullins MD Work Phone: [facility] Comment on above: Chronic obstructive pulmonary disease, unspecified COPD type (HCC) Start: 08-16-2023 Telephone encounter Marilee kirby TRAUMA NURSE - PROFESSOR OF FORESTRY Work Phone: [facility] Start: 08-16-2023 End: 08-16-2023 Office outpatient visit 15 minutes Marilee Bridenthal TRAUMA NURSE - PROFESSOR OF FORESTRY Work Phone: [facility] Comment on above: COPD with acute exac erbation (HCC) (Primary Dx) Start: 08-16-2023 End: 08-16-2023 Office outpatient visit 25 minutes Marilee Bridenthal TRAUMA NURSE - PROFESSOR OF FORESTRY Work Phone: [facility] Comment on above: COPD with acute exac erbation (HCC) (Primary Dx) Start: 07-26-2023 ambulatory Ag Best RN [facility] Start: 07-26-2023 Patient encounter procedure Ag Best RN [facility] Start: 07-23-2023 End: 07-23-2023 Patient encounter status Vu Mullins MD Work Phone: [facility] [employer] Work Phone: Start: 07-23-2023 End: 07-23-2023 Periodic preventive med est patient 40-64yrs Vu Mullins MD Work Phone: [facility] Comment on above: Well female exam wit hout gynecological exam (Primary Dx); Chronic obstructive pulmonary disease, unspecified COPD type (HCC); Chronic hypoxemic respiratory failure (HCC); Primary hypertension; Type 2 diabetes mellitus without complication, without long-term current use of insulin (CMS/HCC) (HCC); Hypertriglyceridemia; Mild episode of recurrent major depressive disorder (HCC); Anxiety; Encounter for screening mammogram for malignant neoplasm of breast Start: 07-18-2023 Refill Marilee Ida thrasher TRAUMA NURSE - PROFESSOR OF FORESTRY Work Phone: [facility] Start: 04-26-2023 Refill Yasemin Randall Derian TRAUMA NURSE - PROFESSOR OF FORESTRY Work Phone: [facility] Start: 04-25-2023 Refill Marileerossi Lopezsinai thrasher TRAUMA NURSE - PROFESSOR OF FORESTRY Work Phone: [facility] Comment on above: Chronic obstructive pulmonary disease, unspecified COPD type (HCC) Start: 04-05-2023 Refill Vu Mullins MD Work Phone: [facility] Start: 02-10-2023 Refill Vu Mullins MD Work Phone: [facility] Start: 02-02-2023 End: 02-02-2023 Office outpatient visit 25 minutes Vu Mullins MD Work Phone: [facility] Comment on above: Chronic hypoxemic re spiratory failure (CMS/HCC) (HCC) (Primary Dx); Chronic obstructive pulmonary disease, unspecified COPD type (HCC); Primary hypertension; Type 2 diabetes mellitus without complication, without long-term current use of insulin (CMS/HCC) (HCC); Hypertriglyceridemia; Mild episode of recurrent major depressive disorder (HCC) Start: 01-29-2023 Refill Marileerossi Prieto anna marie TRAUMA NURSE - PROFESSOR OF FORESTRY Work Phone: [facility] Start: 01-22-2023 Non-patient / Non-visit Dr. Larsen Work Phone: [facility] Work Phone: Start: 01-21-2023 End: 01-22-2023 Evaluation and management of inpatient [facility] Work Phone: Start: 01-21-2023 End: 01-21-2023 Office outpatient visit 25 minutes Vu Mullins MD Work Phone: [facility] Comment on above: COPD exacerbation (H CC) (Primary Dx); Chronic hypoxemic respiratory failure (CMS/HCC) (HCC) Start: 01-12-2023 Refill Marilee Jessicaen thal TRAUMA NURSE - PROFESSOR OF FORESTRY Work Phone: [facility] Comment on above: Chronic obstructive pulmonary disease, unspecified COPD type (HCC) Start: 12-17-2022 Refill Marilee Jessicaen thal TRAUMA NURSE - PROFESSOR OF FORESTRY Work Phone: [facility] Comment on above: Chronic obstructive pulmonary disease, unspecified COPD type (HCC) Start: 11-03-2022 Refill Yasemin Randall Derian TRAUMA NURSE - PROFESSOR OF FORESTRY Work Phone: [facility] Start: 11-02-2022 Refill Marilee Jessicaen thal TRAUMA NURSE - PROFESSOR OF FORESTRY Work Phone: [facility] Comment on above: Chronic obstructive pulmonary disease, unspecified COPD type (HCC) Start: 09-07-2022 Refill Vu Mullins MD Work Phone: [facility] Comment on above: Chronic obstructive pulmonary disease, unspecified COPD type (HCC) (Primary Dx) Start: 09-02-2022 ambulatory Nicole Hernandez RN [facility] Start: 09-02-2022 Patient encounter procedure Nicole Hernandez RN [facility] Start: 08-09-2022 Refill Vu Mullins MD Work Phone: [facility] Start: 07-28-2022 End: 07-28-2022 Office outpatient visit 15 minutes Marilee Hazelal TRAUMA NURSE - PROFESSOR OF FORESTRY Work Phone: [facility] Comment on above: Type 2 diabetes nia itus without complication, without long- term current use of insulin (CMS/HCC) (HCC) (Primary Dx) Start: 07-28-2022 End: 07-28-2022 Office outpatient visit 40 minutes Marilee Murray TRAUMA NURSE - PROFESSOR OF FORESTRY Work Phone: [facility] Comment on above: Type 2 diabetes nai itus without complication, without long- term current use of insulin (CMS/HCC) (HCC) (Primary Dx) Start: 07-16-2022 End: 07-16-2022 Patient encounter status Vu Mullins MD Work Phone: [facility] Start: 07-16-2022 End: 07-16-2022 Periodic preventive med est patient 40-64yrs Vu Mullins MD Work Phone: [facility] Comment on above: Well female exam wit hout gynecological exam (Primary Dx); Chronic obstructive pulmonary disease, unspecified COPD type (HCC); Primary hypertension; Mild episode of recurrent major depressive disorder ([facility]); Anxiety; Hypertriglyceridemia; Screening for diabetes mellitus; Encounter for screening mammogram for malignant neoplasm of breast Start: 07-10-2022 Refill Vu Mullins MD Work Phone: [facility] Start: 05-09-2022 End: 05-09-2022 ambulatory [facility] Work Phone: Start: 05-09-2022 End: 05-09-2022 Patient encounter procedure [facility] Start: 04-08-2022 End: 04-08-2022 ambulatory [facility] Work Phone: Start: 04-08-2022 End: 04-08-2022 Patient encounter procedure [facility], Specimen Start: 03-11-2022 End: 03-11-2022 ambulatory [facility] Work Phone: Start: 03-11-2022 End: 03-11-2022 Patient encounter procedure [facility], [place] Start: 09-24-2021 End: 09-24-2021 Admission to same day surgery center [facility] Start: 09-01-2021 End: 09-01-2021 Patient encounter procedure [facility], [facility] Start: 08-05-2021 End: 08-05-2021 Subsequent hospital visit by physician Vu Mullins MD Work Phone: [facility] Comment on above: Arrived Start: 12-30-2020 End: 12-30-2020 Subsequent hospital visit by physician Annabel Gill MD Work Phone: [facility] Comment on above: Posterior capsular o pacification visually significant, left eye Start: 11-25-2020 End: 11-25-2020 Subsequent hospital visit by physician Annabel Gill MD Work Phone: [facility] Comment on above: Posterior capsular o pacification non visually significant, right eye Start: 06-30-2019 End: 06-30-2019 Subsequent hospital visit by physician Yasemin Wilder CNP Work Phone: [facility] Comment on above: Arrived Start: 04-17-2019 End: 04-17-2019 Subsequent hospital visit by physician Annabel Gill Work Phone: [facility] Comment on above: 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 Start: 04-03-2019 End: 04-03-2019 Subsequent hospital visit by physician Annabel Gill Work Phone: [facility] Comment on above: Combined forms of ag e-related cataract of right eye Procedures Date Procedure Procedure Detail Performing Clinician Start: 02-21-2025 Hemoglobin glycosylated a1c Vu Mullins MD Work Phone: Start: 08-08-2024 Ecg routine ecg w/le ast 12 lds w/i&r Vu Mullins MD Work Phone: Start: 08-08-2024 Lipid 1996 panel - S navid or Plasma Vu Mullins MD Work Phone: Start: 01-21-2024 Hemoglobin glycosylated a1c Vu Mullins MD Work Phone: Start: 11-10-2023 Comprehensive metabo lic panel Mahesh Phipps MD Work Phone: Start: 11-09-2023 Comprehensive metabo lic panel Mahesh Phipps MD Work Phone: Start: 11-08-2023 Glucose quantitative blood xcpt reagent strip Ronaldo Barr MD Work Phone: Start: 11-08-2023 Glucose quantitative blood xcpt reagent strip Ronaldo Barr MD Work Phone: Start: 11-08-2023 Glucose quantitative blood xcpt reagent strip Ronaldo Barr MD Work Phone: Start: 11-08-2023 Comprehensive metabo lic panel Mahesh Phipps MD Work Phone: Start: 11-07-2023 Comprehensive metabo lic panel Mahesh Phipps MD Work Phone: Start: 11-06-2023 Comprehensive metabo lic panel Mahesh Phipps MD Work Phone: Start: 11-05-2023 Blood gases any comb ination ph pco2 po2 co2 hco3 Ronaldo Barr MD Work Phone: Start: 11-05-2023 Comprehensive metabo lic panel Mahesh Phipps MD Work Phone: Start: 11-04-2023 RESPIRATORY THERAPY COMMUNICATION ORDER Angelique Luevano TRAUMA NURSE - PROFESSOR OF FORESTRY Work Phone: Start: 11-04-2023 Comprehensive metabo lic panel Mahesh Phipps MD Work Phone: Start: 11-03-2023 OXYGEN THERAPY Mahesh Phipps MD Work Phone: Start: 11-03-2023 Comprehensive metabo lic panel Mahesh Phipps MD Work Phone: Start: 11-03-2023 Manual Differential panel - Blood Jason Pan TRAUMA NURSE - PROFESSOR OF FORESTRY Work Phone: Start: 11-02-2023 OXYGEN THERAPY Mahesh Phipps MD Work Phone: Start: 11-02-2023 Ct thorax w/o contra st material Mahesh Phipps MD Work Phone: Start: 11-02-2023 OXYGEN THERAPY Mahesh Phipps MD Work Phone: Start: 11-02-2023 Comprehensive metabo lic panel Mahesh Phipps MD Work Phone: Start: 11-02-2023 Manual Differential panel - Blood Jason Pan TRAUMA NURSE - PROFESSOR OF FORESTRY Work Phone: Start: 11-01-2023 OXYGEN THERAPY Mahesh Phipps MD Work Phone: Start: 11-01-2023 OXYGEN THERAPY Mahesh Phipps MD Work Phone: Start: 11-01-2023 Iaad ia mult step me thod nos each organism John Tao Botsch TRAUMA NURSE - PROFESSOR OF FORESTRY Work Phone: Start: 11-01-2023 Radiologic exam ches t single view John Tao Botsch TRAUMA NURSE - PROFESSOR OF FORESTRY Work Phone: Start: 11-01-2023 End: 11-01-2023 Smr prim src gram/giemsa stain bct fungi/cell John Tao Botsch TRAUMA NURSE - PROFESSOR OF FORESTRY Work Phone: Start: 11-01-2023 Comprehensive metabo lic panel John Tao Botsch TRAUMA NURSE - PROFESSOR OF FORESTRY Work Phone: Start: 11-01-2023 Manual Differential panel - Blood John Tao Botsch TRAUMA NURSE - PROFESSOR OF FORESTRY Work Phone: Start: 11-01-2023 Blood gases any comb ination ph pco2 po2 co2 hco3 Mahesh Phipps MD Work Phone: Start: 10-31-2023 Assay of troponin quantitative Kwan Harry MD Work Phone: Start: 10-31-2023 Assay of troponin quantitative Kwan Harry MD Work Phone: Start: 10-31-2023 Respiratory pathogen s DNA and RNA panel - Nasopharynx by TRAN with non-probe detection John Tao Cisco TRAUMA NURSE - PROFESSOR OF FORESTRY Work Phone: Start: 10-31-2023 Blood gases any comb ination ph pco2 po2 co2 hco3 Mahesh Phipps MD Work Phone: Start: 10-31-2023 Radiologic exam ches t single view Kwan Harry MD Work Phone: Start: 10-31-2023 Blood gases any comb ination ph pco2 po2 co2 hco3 Kwan Harry MD Work Phone: Start: 10-31-2023 Comprehensive metabo lic panel Kwan Harry MD Work Phone: Start: 10-31-2023 Ecg routine ecg w/le ast 12 lds trcg only w/o i&r Kwan Harry MD Work Phone: Start: 07-23-2023 Comprehensive metabo lic panel Vu Mullins MD Work Phone: Start: 07-23-2023 Lipid panel Vu Dumont MD Work Phone: Start: 07-23-2023 Urine albumin quantitative Vu Mullins MD Work Phone: Start: 07-23-2023 Lipid 1996 panel - S navid or Plasma Vu Mullins MD Work Phone: Start: 01-21-2023 Viral antigen assay Start: 01-21-2023 Plain chest X-ray Start: 07-16-2022 Lipid 1996 panel - S navid or Plasma Marilee Cortez TRAUMA NURSE - PROFESSOR OF FORESTRY Work Phone: Start: 05-09-2022 CT of chest without contrast Start: 03-11-2022 Plain chest X-ray Start: 09-24-2021 Bronchoscopy Start: 09-22-2021 End: 09-22-2021 Viral antigen assay Start: 09-22-2021 Plain chest X-ray Start: 09-01-2021 CT of chest Start: 08-05-2021 End: 08-05-2021 Screening digital breast tomosynthesis bi Vu Mullins MD Work Phone: Start: 07-09-2021 Lipid 1996 panel - S navid or Plasma Vu Mullins MD Work Phone: Start: 06-30-2019 Screening digital br east tomosynthesis bi Yasemin Pereira Derian TRAUMA NURSE - PROFESSOR OF FORESTRY Work Phone: Start: 04-17-2019 OPERATIVE REPORT 3m Sca nning Start: 03-10-2019 Microscopic observat ion [Identifier] in Cervix by Cyto stain Vu Mullins MD Work Phone: Start: 08-19-2015 Colonoscopy Vu otto MD Work Phone: Investigation of transfusion reaction Respiratory microbia l culture Plan of Treatment Date Care Activity Detail Author Start: 07-20-2026 DTaP/Tdap/Td vaccine (2 - Td or Tdap) DTaP/Tdap/Td vaccine (2 - Td or Tdap) [facility] Start: 07-20-2026 DTaP/Tdap/Td vaccine (2 - Td) DTaP/Tdap/Td vaccine (2 - Td) [place], [place] Start: 07-20-2026 DTaP/Tdap/Td Vaccines (2 - Td or Tdap) DTaP/Tdap/Td Vaccines (2 - Td or Tdap) [facility] Start: 07-20-2026 [facility] Start: 07-09-2026 Lipid panel [facility] Start: 02-21-2026 Hemoglobin A1c measurement Diabetes: Hemoglobin A1C [facility] Start: 10-03-2025 Glaucoma screening Diabetes: Retinopathy Screening [facility] Start: 08-18-2025 Colon cancer screen colonoscopy Colon cancer screen colonoscopy [place], [place] Start: 08-18-2025 Screening for malignant neoplasm of colon [facility] Start: 08-09-2025 End: 08-09-2025 Patient encounter procedure 08/09/2025 8:00 AM EST Office Visit [place] [address] [facility] [address] [place], [place] [address] [facility] [place] [facility] [place] [address] [facility] Start: 08-08-2025 COVID-19 Vaccine () COVID-19 Vaccine () [facility] Comment on above: Postponed from 02/06/2024 (Patient Refus ed) Start: 08-08-2025 Diabetes: Estimated Glomerular Filtration Rate for Kidney Health Diabetes: Estimated Glomerular Filtration Rate for Kidney Health [facility] Start: 08-08-2025 Diabetes: Urine Albumin-Creatinine Ratio for Kidney Health Diabetes: Urine Albumin-Creatinine Ratio for Kidney Health [facility] Start: 08-08-2025 Diabetic foot examination Diabetes: Foot Exam [facility] Start: 08-08-2025 Hemoglobin A1c measurement Diabetes: Hemoglobin A1C [facility] Start: 08-08-2025 Hepatitis C screening Hepatitis C Screening [facility] Comment on above: Postponed from 1976 (Patient Refus ed) Start: 08-08-2025 Lipid panel Lipid Panel [facility] Start: 08-08-2025 Zoster Vaccines (1 of 2) Zoster Vaccines (1 of 2) [facility] Comment on above: Postponed from 2008 (Patient Refus ed) Start: 06-14-2025 Lipid panel Lipid screen [facility] Work Phone: Start: 02-23-2025 End: 02-23-2025 Clinical Support 02/23/2025 11:00 AM EDT Clinical Support [place] [address] [place] [address] [facility] Start: 02-21-2025 End: 02-21-2026 DXA Skeletal system.axial Views for bone density DEXA bone density axial skeleton Imaging Routine Menopause Expected: 02/21/2025, Expires: 02/21/2026 [facility] Work Phone: Comment on above: Expected: 02/21/2025, Expires: Start: 02-21-2025 End: 02-21-2025 Patient encounter procedure 02/21/2025 11:00 AM EDT Office [place] [address] [facility] [place] [address] Vu Mullins MD [address] [place] [address], [place] [address] [facility] Start: 02-08-2025 Depression Monitoring Depression Monitoring [facility] Start: 02-05-2025 COVID-19 Vaccine () COVID-19 Vaccine () [facility] Start: 02-05-2025 Influenza vaccination [facility] Start: 01-20-2025 COVID-19 Vaccine ( season) COVID-19 Vaccine () [facility] Comment on above: Postponed from 02/05/2023 (Patient Refus ed) Start: 01-20-2025 Hemoglobin A1c measurement Diabetes: Hemoglobin A1C [facility] Start: 01-20-2025 Pneumococcal Vaccine: 50+ Years (2 of 2 - PCV) Pneumococcal Vaccine: 50+ Years (2 of 2 - PCV) [facility] Comment on above: Postponed from 11/26/2019 (Patient Refus ed) Start: 01-20-2025 Pneumococcal Vaccine: 65+ Years (2 of 2 - PCV) Pneumococcal Vaccine: 65+ Years (2 of 2 - PCV) [facility] Comment on above: Postponed from 11/26/2019 (Patient Refus ed) Start: 01-20-2025 RSV Immunization aged 60 or older (1 - 1-dose 60+ series) RSV Immunization aged 60 or older (1 - 1-dose 60+ series) [facility] Comment on above: Postponed from 2018 (Patient Refus ed) Start: 01-20-2025 RSV Immunization for Adults (1 - Risk 60-74 years 1-dose series) RSV Immunization for Adults (1 - Risk 60-74 years 1-dose series) [facility] Comment on above: Postponed from 2018 (Patient Refus ed) Start: 12-04-2024 Influenza vaccination Influenza Vaccine (#1) [facility] Comment on above: Postponed from 02/06/2024 (Patient Refus ed) Start: 11-09-2024 Diabetes: Estimated Glomerular Filtration Rate for Kidney Health Diabetes: Estimated Glomerular Filtration Rate for Kidney Health [facility] Start: 11-09-2024 [facility] Start: 11-03-2024 Diabetes: Estimated Glomerular Filtration Rate for Kidney Health Diabetes: Estimated Glomerular Filtration Rate for Kidney Health [facility] Start: 11-01-2024 Diabetes: Estimated Glomerular Filtration Rate for Kidney Health Diabetes: Estimated Glomerular Filtration Rate for Kidney Health [facility] Start: 11-01-2024 Screening for malignant neoplasm of lung Lung Cancer Screening [facility] Start: 10-31-2024 Diabetes: Estimated Glomerular Filtration Rate for Kidney Health Diabetes: Estimated Glomerular Filtration Rate for Kidney Health [facility] Start: 08-10-2024 End: 08-10-2025 Large Joint Injection/Arthrocentesis Large Joint Injection/Arthrocentesis Procedures Routine Chronic pain of left knee Expected: 08/10/2024 (Approximate), Expires: 08/10/2025 [facility] Work Phone: Comment on above: Expected: 08/10/2024 (Approximate), Expi res: 08/10/2025 Start: 08-10-2024 End: 08-10-2024 Patient encounter procedure 08/10/2024 11:15 AM EST Office Visit [address] [id number] Vu Mullins MD [address] [place] [id number] [facility] Start: 08-08-2024 End: 08-07-2025 Comprehensive metabolic 1998 panel - Serum or Plasma Comprehensive metabolic panel Lab Routine Type 2 diabetes mellitus without complication, without long-term current use of insulin (CMS/HCC) ([facility]) Expected: 08/08/2024 (Approximate), Expires: 08/07/2025 [facility] Comment on above: Expected: 08/08/2024 (Approximate), Expi res: 08/07/2025 Start: 08-08-2024 End: 08-07-2025 Hemoglobin A1c measurement Hemoglobin A1c Lab Routine Type 2 diabetes mellitus without complication, without long-term current use of insulin (CMS/HCC) (HCC) Expected: 08/08/2024 (Approximate), Expires: 08/07/2025 [facility] Comment on above: Expected: 08/08/2024 (Approximate), Expi res: 08/07/2025 Start: 08-08-2024 End: 08-07-2025 Lipid 1996 panel - Serum or Plasma Lipid panel Lab Routine Hypertriglyceridemia Expected: 08/08/2024 (Approximate), Expires: 08/07/2025 [facility] Work Phone: Comment on above: Expected: 08/08/2024 (Approximate), Expi res: 08/07/2025 Start: 08-08-2024 End: 08-07-2025 Microalbumin/Creatinine panel in random Urine Microalbumin / creatinine urine ratio Lab Routine Type 2 diabetes mellitus without complication, without long-term current use of insulin ([facility]/HCC) (HCC) Expected: 08/08/2024 (Approximate), Expires: 08/07/2025 [facility] Comment on above: Expected: 08/08/2024 (Approximate), Expi res: 08/07/2025 Start: 08-08-2024 End: 08-08-2024 Patient encounter procedure 08/08/2024 7:45 AM EST Office Visit [address] [address] Vu Mullins MD [address] [place] [address] [facility] Start: 08-04-2024 End: 08-04-2024 Patient encounter procedure [facility] Start: 07-23-2024 Depression Monitoring Depression Monitoring [facility] Start: 07-23-2024 Diabetes: Estimated Glomerular Filtration Rate for Kidney Health Diabetes: Estimated Glomerular Filtration Rate for Kidney Health [facility] Start: 07-23-2024 Diabetes: Urine Albumin-Creatinine Ratio for Kidney Health Diabetes: Urine Albumin-Creatinine Ratio for Kidney Health [facility] Start: 07-23-2024 Diabetic foot examination [facility] Start: 07-23-2024 Hemoglobin A1c measurement [facility] Start: 07-23-2024 Lipid panel [facility] Start: 07-23-2024 [facility] Start: 07-12-2024 End: 07-12-2024 Patient encounter procedure 07/12/2024 1:45 PM EST Office Visit [facility] [address] [facility] [place] [address] [place] [address] Vu Mullins MD [address] [facility] [facility] [address] [place] [address] [facility] Start: 06-22-2024 Glaucoma screening [facility] Start: 06-07-2024 Medicare Advantage Annual Wellness Visit Medicare [facility] Annual Wellness Visit [facility] Start: 04-19-2024 End: 04-19-2024 Clinical Support 04/19/2024 8:30 AM EST Clinical Support [facility] [address] [facility] [place] [address] [place] [address] [facility] Start: 03-17-2024 End: 03-17-2025 DXA Skeletal system.axial Views for bone density DEXA bone density axial skeleton Imaging Routine Menopause Expected: 03/17/2024, Expires: 03/17/2025 [facility] Work Phone: Comment on above: Expected: 03/17/2024, Expires: Start: 03-17-2024 End: 03-17-2025 Large Joint Injection/Arthrocentesis Large Joint Injection/Arthrocentesis Procedures Routine Chronic pain of left knee Expected: 03/17/2024 (Approximate), Expires: 03/17/2025 [facility] [employer] Comment on above: Expected: 03/17/2024 (Approximate), Expi res: 03/17/2025 Start: 03-10-2024 Lipid screen Lipid screen [facility] [place] [place] Start: 03-09-2024 End: 03-09-2025 XR Knee - left 4 Views XR knee 4+ views left Imaging Routine Chronic pain of left knee Expected: 03/09/2024, Expires: 03/09/2025 [facility] Work Phone: Comment on above: Expected: 03/09/2024, Expires: Start: 02-06-2024 COVID-19 Vaccine ( season) COVID-19 Vaccine () [facility] Start: 02-06-2024 COVID-19 Vaccine () COVID-19 Vaccine () [facility] Start: 02-06-2024 Influenza vaccination [facility] Start: 02-06-2024 [facility] Start: 02-03-2024 COVID-19 Vaccine (3 - Booster for Moderna series) COVID-19 Vaccine (3 - Booster for Moderna series) [facility] Comment on above: Postponed from 11/27/2020 (Patient Refus ed) Start: 02-03-2024 COVID-19 Vaccine (3 - Moderna series) COVID-19 Vaccine (3 - Moderna series) [facility] Comment on above: Postponed from 11/27/2020 (Patient Refus ed) Start: 02-03-2024 Hepatitis A Vaccines (1 of 2 - Risk 2-dose series) Hepatitis A Vaccines (1 of 2 - Risk 2-dose series) [facility] Comment on above: Postponed from 1977 (Patient Refus ed) Start: 02-03-2024 Hepatitis B Vaccines (1 of 3 - Risk 3-dose series) Hepatitis B Vaccines (1 of 3 - Risk 3-dose series) [facility] Comment on above: Postponed from 2018 (Patient Refus ed) Start: 02-03-2024 Hepatitis C screening [facility] Comment on above: Postponed from 1976 (Patient Refus ed) Start: 02-03-2024 HIV screening HIV Screening [facility] Comment on above: Postponed from 1958 (Patient Refus ed) Start: 02-03-2024 Zoster Vaccines (1 of 2) [facility] Vaccines (1 of 2) [facility] Comment on above: Postponed from 2008 (Patient Refus ed) Start: 02-03-2024 [facility] Start: 01-21-2024 Depression Monitoring Depression Monitoring [facility] Start: 01-21-2024 Depresssion Monitoring Depresssion Monitoring [facility] Start: 01-21-2024 [facility] Start: 01-21-2024 End: 01-21-2024 ambulatory [facility] Start: 01-21-2024 End: 01-21-2024 Patient encounter procedure 01/21/2024 8:30 AM EDT Office Visit [facility] [address] [facility] [place] [place] [address] [place] [address] Vu Mullins MD [address] [place] [address] [place] [address] [facility] Start: 11-26-2023 Pneumococcal 0-64 years Vaccine (2 of 2 - PPSV23) Pneumococcal 0-64 years Vaccine (2 of 2 - PPSV23) [facility] Start: 11-26-2023 Pneumococcal 0-64 years Vaccine (2 of 2) Pneumococcal 0-64 years Vaccine (2 of 2) [facility] Work Phone: Start: 11-25-2023 End: 11-24-2024 XR forearm 2 views right [facility] Work Phone: Comment on above: Expected: 11/25/2023, Expires: Once for 1 Occurrenc es starting 11/25/2023 until 11/25/2023 Start: 11-23-2023 End: 11-23-2023 ambulatory [facility] Start: 10-28-2023 Hemoglobin A1c measurement Diabetes: Hemoglobin A1C [facility] Start: 2023 End: 2023 Telemedicine consultation with patient 2023 7:20 AM EDT Telemedicine [facility] [address] [facility] [address] [place] [address] [place] [address] Marilee Murray APRN - ZANDER [address] [facility] [address] [place] [id number] [facility] Start: 08-06-2023 Screening for malignant neoplasm of breast Breast cancer screen [facility] Start: 08-05-2023 Depresssion Monitoring Depresssion Monitoring [facility] Start: 07-23-2023 End: 07-23-2024 Comprehensive metabolic 1998 panel - Serum or Plasma Comprehensive metabolic panel Lab Routine Type 2 diabetes mellitus without complication, without long-term current use of insulin (CMS/HCC) (HCC) Expected: 07/23/2023 (Approximate), Expires: 07/23/2024 [facility] Comment on above: Expected: 07/23/2023 (Approximate), Expi res: 07/23/2024 Start: 07-23-2023 End: 09-20-2024 DBT Breast - bilateral screening Bilateral screening mammogram with tomosynthesis Imaging Routine Encounter for screening mammogram for malignant neoplasm of breast Expected: 07/23/2023, Expires: 09/20/2024 [facility] Comment on above: Expected: 07/23/2023, Expires: Start: 07-23-2023 End: 07-23-2024 Hemoglobin A1c measurement Hemoglobin A1c Lab Routine Type 2 diabetes mellitus without complication, without long-term current use of insulin (CMS/HCC) (HCC) Expected: 07/23/2023 (Approximate), Expires: 07/23/2024 [facility] Comment on above: Expected: 07/23/2023 (Approximate), Expi res: 07/23/2024 Start: 07-23-2023 End: 07-23-2024 Lipid 1996 panel - Serum or Plasma Lipid panel Lab Routine Hypertriglyceridemia Expected: 07/23/2023 (Approximate), Expires: 07/23/2024 [facility] Work Phone: Comment on above: Expected: 07/23/2023 (Approximate), Expi res: 07/23/2024 Start: 07-23-2023 End: 07-23-2024 Microalbumin/Creatinine panel in random Urine Microalbumin / creatinine urine ratio Lab Routine Type 2 diabetes mellitus without complication, without long-term current use of insulin (CMS/HCC) (HCC) Expected: 07/23/2023 (Approximate), Expires: 07/23/2024 [facility] Comment on above: Expected: 07/23/2023 (Approximate), Expi res: 07/23/2024 Start: 07-23-2023 End: 07-23-2023 Patient encounter procedure 07/23/2023 8:00 AM EST Office Visit [facility] [address] [facility] [place] [address] Vu Mullins MD [address] [place] [address] [place] [address] [facility] Start: 07-16-2023 Lipid panel Lipid Panel [facility] Start: 07-16-2023 Pneumococcal Vaccine: Pediatrics (0 to 5 Years) and At-Risk Patients (6 to 64 Years) (2 - PCV) Pneumococcal Vaccine: Pediatrics (0 to 5 Years) and At-Risk Patients (6 to 64 Years) (2 - PCV) [facility] Comment on above: Postponed from 11/26/2019 (Patient Refus ed) Start: 06-22-2023 Glaucoma screening Diabetes: Retinopathy Screening [facility] Start: 06-07-2023 Medicare Advantage Annual Wellness Visit Medicare Advantage Annual Wellness Visit [facility] Start: 06-07-2023 [facility] Start: 02-05-2023 COVID-19 Vaccine ( season) COVID-19 Vaccine ( season) [facility] Start: 02-05-2023 Influenza vaccination [facility] Start: 02-05-2023 [facility] Start: 02-02-2023 End: 02-02-2023 Patient encounter procedure [facility] Start: 01-27-2023 Hemoglobin A1c measurement Diabetes: Hemoglobin A1C [facility] Start: 01-22-2023 Patient discharge [facility] Start: 01-21-2023 Ambulation without limitation [facility] Start: 01-21-2023 Assessment of risk of venous thromboembolism [facility] Start: 01-21-2023 Incentive spirometry [facility] Start: 01-21-2023 Inhalation therapy procedure [facility] Start: 01-21-2023 Insertion of catheter into peripheral vein [facility] Start: 01-21-2023 Oxygen therapy [facility] Start: 01-21-2023 Providing care according to standard [facility] Start: 01-21-2023 [facility] Start: 01-21-2023 Following clinical pathway protocol [facility] Start: 01-21-2023 Verification routine [facility] Start: 01-21-2023 Admission procedure [facility] Start: 01-21-2023 Brain natriuretic peptide measurement [facility] Start: 01-21-2023 End: 01-22-2023 [facility] Start: 01-13-2023 Depresssion Monitoring Depresssion Monitoring [facility] Start: 12-31-2022 Hepatitis C screening Hepatitis C Screening [facility] Comment on above: Postponed from 1976 (Patient Refus ed) Start: 12-31-2022 HIV screening HIV Screening [facility] Comment on above: Postponed from 1958 (Patient Refus ed) Start: 12-04-2022 Influenza vaccination Influenza Vaccine (#1) [facility] Comment on above: Postponed from 02/05/2022 (Patient Refus ed) Start: 10-27-2022 End: 10-27-2022 Clinical Support 10/27/2022 Clinical Support Family Medicine [facility] Start: 10-25-2022 End: 07-28-2023 Hemoglobin A1c/Hemoglobin.total in Blood Hemoglobin A1c Lab Routine Type 2 diabetes mellitus without complication, without long-term current use of insulin ([facility]/HCC) (HCC) Expected: 10/25/2022 (Approximate), Expires: 07/28/2023 [facility] [facility] Work Phone: Comment on above: Expected: 10/25/2022 (Approximate), Expi res: 07/28/2023 Start: 10-21-2022 Hemoglobin A1c measurement Diabetes: Hemoglobin A1C [facility] Start: 09-09-2022 Screening for malignant neoplasm of lung Lung Cancer Screening [facility] Start: 08-05-2022 Screening for malignant neoplasm of breast [facility] Start: 07-16-2022 End: 07-16-2023 Comprehensive metabolic 1998 panel - Serum or Plasma Comprehensive metabolic panel Lab Routine Screening for diabetes mellitus Expected: 07/16/2022 (Approximate), Expires: 07/16/2023 [facility] Comment on above: Expected: 07/16/2022 (Approximate), Expi res: 07/16/2023 Start: 07-16-2022 End: 07-16-2023 Lipid 1996 panel - Serum or Plasma Lipid panel Lab Routine Hypertriglyceridemia Expected: 07/16/2022 (Approximate), Expires: 07/16/2023 [facility] Work Phone: Comment on above: Expected: 07/16/2022 (Approximate), Expi res: 07/16/2023 Start: 07-16-2022 End: 09-14-2023 MG Breast - bilateral Screening Bilateral screening mammogram Imaging Routine Encounter for screening mammogram for malignant neoplasm of breast Expected: 07/16/2022, Expires: 09/14/2023 [facility] Comment on above: Expected: 07/16/2022, Expires: Start: 07-16-2022 End: 07-16-2022 Patient encounter procedure 07/16/2022 Office Visit Family Medicine Vu Mullins MD [address] [place] [address], [facility] [place] [address] [facility] Start: 07-10-2022 End: 07-10-2022 Patient encounter procedure 07/10/2022 Office Visit Family Medicine Vu Mullins MD [address] [place] [address], [facility] [place] [address] [facility] Start: 07-09-2022 Creatinine measurement Creatinine monitoring [facility] Start: 07-09-2022 Influenza vaccination Flu vaccine (#1) [facility] Comment on above: Postponed from 02/05/2021 (Patient Refus ed) Start: 07-09-2022 Potassium monitoring Potassium monitoring [facility] Start: 07-08-2022 Depression Screen Depression Screen [facility] Start: 07-05-2022 Screening for malignant neoplasm of breast Breast cancer screen [facility] Work Phone: Start: 03-10-2022 Cervical cancer screen Cervical cancer screen [facility] [place] Start: 03-10-2022 Screening for malignant neoplasm of cervix [facility] Start: 02-05-2022 Influenza vaccination Influenza Vaccine (#1) [facility] Start: 12-19-2021 Hepatitis C screening Hepatitis C screen [facility] Comment on above: Postponed from 1958 (Patient Refus ed) Start: 12-19-2021 HIV screening HIV screen [facility] Comment on above: Postponed from 1973 (Patient Refus ed) Start: 12-19-2021 Shingles Vaccine (1 of 2) Shingles Vaccine (1 of 2) [facility] Comment on above: Postponed from 2008 (Patient Refus ed) Start: 08-31-2021 Screening for malignant neoplasm of lung Low dose CT lung screening [facility] Start: 06-20-2021 End: 06-20-2021 Patient encounter procedure 06/20/2021 Office Visit Family Medicine Vu Mullins MD [address] [facility], [facility] [place] [address] [phone] [facility] Start: 06-16-2021 End: 06-16-2021 Patient encounter procedure 06/16/2021 Office Visit Family Medicine [facility] [place] [address] [phone] [facility] Start: 06-14-2021 Creatinine measurement Creatinine monitoring [facility] Work Phone: Start: 06-14-2021 Potassium monitoring Potassium monitoring [facility] Work Phone: Start: 06-13-2021 Influenza vaccination Flu vaccine (Season Ended) [facility] Work Phone: Comment on above: Postponed from 02/05/2021 (Patient Refus ed) Start: 03-04-2021 COVID-19 Vaccine (3 - Booster for Moderna series) COVID-19 Vaccine (3 - Booster for Moderna series) [facility] Start: 02-05-2021 Influenza vaccination Flu vaccine (#1) [facility] Work Phone: Start: 12-13-2020 End: 12-13-2020 Patient encounter procedure 12/13/2020 Office Visit Family Vu Prasad MD [address] [facility], [facility] [place] [address] [phone] [facility] Start: 11-27-2020 COVID-19 Vaccine (3 - Booster for Moderna series) COVID-19 Vaccine (3 - Booster for Moderna series) [facility] Start: 06-28-2020 Breast cancer screen Breast cancer screen [place], [place] Start: 03-10-2020 Creatinine monitoring Creatinine monitoring [place], [place] Start: 03-10-2020 Potassium monitoring Potassium monitoring [place] Start: 11-26-2019 Pneumococcal Vaccine: 50+ Years (2 of 2 - PCV) Pneumococcal Vaccine: 50+ Years (2 of 2 - PCV) [facility] Start: 11-26-2019 Pneumococcal Vaccine: 65+ Years (2 of 2 - PCV) Pneumococcal Vaccine: 65+ Years (2 of 2 - PCV) [facility] Start: 11-26-2019 Pneumococcal Vaccine: Pediatrics (0 to 5 Years) and At-Risk Patients (6 to 64 Years) (2 - PCV) Pneumococcal Vaccine: Pediatrics (0 to 5 Years) and At-Risk Patients (6 to 64 Years) (2 - PCV) [facility] Start: 11-26-2019 Pneumococcal Vaccine: Pediatrics (0 to 5 Years) and At-Risk Patients (6 to 64 Years) (2 of 2 - PCV) Pneumococcal Vaccine: Pediatrics (0 to 5 Years) and At-Risk Patients (6 to 64 Years) (2 of 2 - PCV) [facility] Start: 11-26-2019 [facility] Start: 09-08-2019 End: 09-08-2019 Office Visit 09/08/2019 Office Visit Family Medicine Yasemin Menard APRN - PROFESSOR OF FORESTRY [address] [place] [address] [phone] [facility] Start: 06-30-2019 End: 06-30-2019 Appointment 06/30/2019 Appointment Radiology Yasemin Menard APRN - PROFESSOR OF FORESTRY [address] [place] [address] [phone] [facility] Start: 06-14-2019 Hepatitis C screen Hepatitis C screen [place], [place] Comment on above: Postponed from 1958 (Patient Refus ed) Start: 06-14-2019 HIV screen HIV screen [place] Comment on above: Postponed from 1973 (Patient Refus ed) Start: 2018 Hepatitis B Vaccines (1 of 3 - Risk 3-dose series) Hepatitis B Vaccines (1 of 3 - Risk 3-dose series) [facility] Start: 2018 RSV Immunization aged 60 or older (1 - 1-dose 60+ series) RSV Immunization aged 60 or older (1 - 1-dose 60+ series) [facility] Start: 2018 RSV Immunization for Adults (1 - Risk 60-74 years 1-dose series) RSV Immunization for Adults (1 - Risk 60-74 years 1-dose series) [facility] Start: 2018 [facility] Start: 06-28-2016 Screening for malignant neoplasm of colon FIT/FOBT: Average risk [facility] Start: 2008 Shingles Vaccine (1 of 2) Shingles Vaccine (1 of 2) [place] Start: 2008 Zoster Vaccines (1 of 2) Zoster Vaccines (1 of 2) [facility] Start: 10-06-2003 Screening for malignant neoplasm of colon [facility] Start: 1998 Diabetes screen Diabetes screen [facility] Work Phone: Start: 1993 Diabetes screen Diabetes screen [facility] Start: 1988 Screening for malignant neoplasm of cervix [facility] Start: 10-06-1979 Screening for malignant neoplasm of cervix [facility] Start: 1977 Hepatitis A Vaccines (1 of 2 - Risk 2-dose series) Hepatitis A Vaccines (1 of 2 - Risk 2-dose series) [facility] Start: 1977 Urine screening for protein Diabetes: Urine Protein Screening [facility] Start: 1976 Hepatitis C screening Hepatitis C Screening [facility] Start: 1973 HIV screen HIV screen [facility] Work Phone: Start: 1973 HIV screening HIV screen [facility] Work Phone: Start: 1968 Diabetic foot examination Diabetes: Foot Exam [facility] Start: 1968 Glaucoma screening Diabetes: Retinopathy Screening [facility] Start: 1968 Preventive dental service [facility] Start: 10-06-1959 Hepatitis A Vaccines (1 of 2 - Risk 2-dose series) Hepatitis A Vaccines (1 of 2 - Risk 2-dose series) [facility] Start: 10-06-1959 MMR Vaccines (1 of 1 - Standard series) MMR Vaccines (1 of 1 - Standard series) [facility] Start: 1958 Annual wellness visit [facility] Start: 1958 Hepatitis C screen Hepatitis C screen [facility] Work Phone: Start: 1958 Hepatitis C screening Hepatitis C screen [facility] Work Phone: Start: 1958 HIV screening HIV Screening [facility] Start: 1958 Screening for malignant neoplasm of colon [facility] Start: 1958 Screening for osteoporosis [facility] End: 10-31-2023 Blood gases, arterial measurement [facility] Work Phone: End: 11-01-2023 Blood gases, arterial measurement [facility] End: 04-17-2019 Blood glucose - POCT Blood glucose - POCT Point of Care Testing STAT One Time for 1 Occurrences starting 04/17/2019 until 04/17/2019 [facility] Comment on above: One Time for 1 Occurrences starting 04/07 until 04/17/2019 Incentive spirometry Brenda morocho [facility] Comment on above: Q1H PRN until discontinued starting 04/07 Q1H PRN until discon tinued starting 04/03/2019 Initiate Oxygen Ther apy Protocol [facility] Comment on above: Daily until discontinued starting 2018 Daily until disconti nued starting 04/04/2019 Daily until disconti nued starting 04/03/2019 Oxygen therapy [[facility] Data Set] Initiate Oxygen Therapy Protocol Respiratory Care Routine Daily until discontinued starting 12/30/2020 [facility] Work Phone: Comment on above: Daily until discontinued starting 2020 Patient referral [facility] Work Phone: Phase I & II - meter ed glucose [facility] Comment on above: As Needed until discontinued starting As Needed until disc ontinued starting 04/03/2019 End: 04-17-2019 Pulse Oximetry Spot Check Pulse Oximetry Spot Check Respiratory Care Routine One Time for 1 Occurrences starting 04/17/2019 until 04/17/2019 [place] Comment on above: One Time for 1 Occurrences starting 04/07 until 04/17/2019 End: 04-03-2019 Pulse Oximetry Spot Check Pulse Oximetry Spot Check Respiratory Care Routine One Time for 1 Occurrences starting 04/03/2019 until 04/03/2019 [facility] [place] Comment on above: One Time for 1 Occurrences starting 03/08 until 04/03/2019 End: 03-13-2024 XR Knee - left 4 Views [facility] Work Phone: Comment on above: Once for 1 Occurrences starting 03/13/20 24 until 03/13/2024 Immunizations Immunization Date Immunization Notes Care Provider Fa [facility] 10-02-2020 COVID-19, Moderna, P F, 100mcg/0.5mL Annabel Gill MD Work Phone: [facility] Work Phone: 09-04-2020 COVID-19, Moderna, P F, 100mcg/0.5mL Annabel Gill MD Work Phone: [facility] 03-10-2019 influenza, injectabl e, quadrivalent, contains preservative [place] 03-10-2019 influenza virus vacc ine, unspecified formulation Nicole Hernandez RN [facility] 11-25-2018 pneumococcal polysaccharide vaccine, [address] [facility] 05-13-2018 influenza, injectabl e, quadrivalent, preservative free Nicole Hernandez RN [facility] 05-13-2018 Influenza, Quadv, 6 mo and older, IM, PF (Flulaval, Fluarix) [facility] 05-13-2018 influenza, seasonal, injectable Nicole Hernandez RN [facility] 05-13-2018 Kwan Harry MD Work Phone: [facility] 07-20-2016 tetanus toxoid, redu jeremy diphtheria toxoid, and acellular pertussis vaccine, adsorbed Annabel CHRISTINE Payers Date Payer Category Payer Medicare [id number] 2024 Self-pay [id number] 2023 Medicare [id number] 2023 Medicare HMO [id number] 2023 Medicare [id number] 2021 Private Health Insurance [id number] 2021 Unknown HEALTH PLAN OF [facility] THE HEALTH PLAN [facility] [id number] 2021-Present [phone] [place] [address] [id number] 2021 Unknown HEALTH PLAN OF [facility] THE HEALTH PLAN [id number] 2021-Present [address] [place] [address] Commercial [id number] 2016 Private Health Insurance [facility] PLU xxxxxxxxx 2016-Present [phone] [address] [place] [address] xxxxxxxxx [id number] 2016 Private Health Insurance [id number] Private Health Insurance [facility] [id number] Private Health Insurance [facility] [id number] Unknown [id number] Unknown [id number] Unknown [id number] Unknown [id number] Unknown [id number] Unknown [id number] Unknown [id number] Unknown [id number] Unknown [id number] Unknown [id number] Unknown [id number] Unknown [id number] Unknown [id number] Unknown [id number] Unknown [id number] Social History Date Type Detail Facility Start: 04-17-2019 End: 04-20-2022 Tobacco smoking status NHIS Former smoker [place], [place] Start: 09-06-1983 End: 09-06-2023 History of tobacco use Current smoker [place] Start: 09-06-1983 End: 09-06-2023 History of tobacco use Cigarette Smoker [place] Start: 04-17-2019 End: 08-08-2024 Cigarettes smoked current (pack per day) - Reported [place] Start: 04-17-2019 End: 02-21-2025 Alcohol intake Current non-drinker of alcohol (finding) [place] Start: 03-10-2019 End: 04-20-2022 History SDOH Alcohol Frequency 1 [place] Start: 1960 Sex Assigned At Not on file [place] Start: 04-03-2019 End: 08-08-2024 Alcohol intake No [place] Start: 06-14-2020 End: 06-20-2024 Tobacco use and exposure Never used [facility] Start: 12-19-2020 End: 04-20-2022 History SDOH Financial 5 [facility] Work Phone: Start: 12-19-2020 End: 04-20-2022 History SDOH Transport Med 2 [facility] Work Phone: Start: 07-06-2022 End: 02-02-2023 Exposure to SARS-CoV-2 (event) Not sure [facility] Start: 1960 Sex Assigned At Female [facility] Start: 09-19-2021 End: 01-21-2023 Tobacco smoking status NHIS Unknown if ever smoked [facility] How hard is it for y ou to pay for the very basics like food, housing, medical care, and heating Not hard at all [facility] (I/We) worried santiago er (my/our) food would run out before (I/we) got money to buy more. Never true [facility] [employer] In the past 12 month s, was there a time when you were not able to pay the mortgage or rent on time? No [facility] Start: 10-31-2023 Tobacco smoking stat us NHIS Smokes tobacco daily [facility] How often to you hav e a drink containing alcohol? Never [facility] Are you now , , , , never or living with a partner? [facility] How often to you hav e a drink containing alcohol? 2-4 times a month [facility] How many standard drinks containing alcohol do you have on a typical day? 1 or 2 [facility] Do you feel stress - tense, restless, nervous, or anxious, or unable to sleep at night because your mind is troubled all the time - these days [OSQ] Not at all [facility] Start: 01-05-2022 Sex Female (finding) [facility] Start: 09-06-1983 Tobacco smoking stat [facility] Occasional tobacco smoker [facility] Do you feel stress - tense, restless, nervous, or anxious, or unable to sleep at night because your mind is troubled all the time - these days [OSQ] To some extent [facility] Medical Equipment Procedure Code Equipment Code Equipment Origin al Text Equipment Identifier Dates Eye-04/03/2019 [id number] Start: 04-03-2019 Eye-04/17/2019 [id number] Start: 04-17-2019 Use as directed 3x day. [id number] Start: 07-28-2022 1 each 2 times d aily as needed (twice daily glucose). [id number] Start: 07-28-2022 End: 08-27-2022 Goals Date Patient Goal Desired Activity /State Personal health goal Comment on above: Formatting of this n ote might be different from the original. Manage COPD and reduce flare-ups. Comment on above: Self- Management Kaleigh n: Hypertension Below is a list of objectives your doctor would like you to consider working on help improve your overall health. Which objectives would you like to work on: Objective: I will take all medications as prescribed by my doctor, and I will call the office if I am having any medication problems. Patient Stated Goal: To continue to have good blood pressure numbers. Barriers to success: none Plan for overcoming my barriers: N/A. Confidence: 03/16 Date goal set: 03/10/19 Self tracking sheet(s) given to patient: Yes Patient given educational materials on Hypertension Eldian received counseling about current lifestyle goal. Provider Goal: BP <140/90. I have instructed Eldian to record their blood pressure at home and to bring blood pressure recordings with them to their next appointment. Discussed use, benefit, and side effects of prescribed medications and barriers to medication compliance addressed, if applicable. All patient questions answered and patient voiced understanding. Patient was given a copy of this, and was advised to call if any questions. Formatting of this n ote might be different from the original. Self- Management Plan: Hypertension Below is a list of objectives your doctor would like you to consider working on help improve your overall health. Which objectives would you like to work on: Objective: I will take all medications as prescribed by my doctor, and I will call the office if I am having any medication problems. Patient Stated Goal: To continue to have good blood pressure numbers. Barriers to success: none Plan for overcoming my barriers: N/A. Confidence: 03/16 Date goal set: 03/10/19 Self tracking sheet(s) given to patient: Yes Patient given educational materials on Hypertension Eldian received counseling about current lifestyle goal. Provider Goal: BP <140/90. I have instructed Eldian to record their blood pressure at home and to bring blood pressure recordings with them to their next appointment. Discussed use, benefit, and side effects of prescribed medications and barriers to medication compliance addressed, if applicable. All patient questions answered and patient voiced understanding. Patient was given a copy of this, and was advised to call if any questions. Functional Status Date Assessment Result Facility 02-22-2025 Patient Health Quest ionnaire 2 item (PHQ-2) [Reported] [facility] 02-22-2025 Generalized anxiety disorder 7 item (JEFF-7) [facility] 01-22-2023 Functional status Ambulates;[place] Privilege [facility] Work Phone: [facility] Mental Status Date Assessment Result Facility 01-21-2023 Cognitive function Appropriate;Cooperativ e [facility] Work Phone: 09-24-2021 Cognitive function Voice/Name [facility] Work Phone: Clinical Notes 07-10-2022 to 02-21-2025 Assessment & Plan Note - Vu Mullins MD - 02/21/2025 1:02 PM EDTAssessment & Plan Note - Vu Mullins MD - 02/21/2025 1:02 PM oYselin Fox MA - 02/21/2025 11:00 AM EDT Note Date & Type Note Facility 02-21-2025 Evaluation + Plan note Associated Problem(s): Type 2 diabetes mellitus without complication, without long-term current use of insulin (HCC) Controlled, A1c today is 6.8 continue very strict low-fat carb diet. [facility] 02-21-2025 Miscellaneous Notes Associated Problem(s): Type 2 diabetes mellitus without complication, without long-term current use of insulin (HCC) Controlled, A1c today is 6.8 continue very strict low-fat carb diet. Associated Problem(s): Hypertension Controlled, continue lisinopril hydrochlorothiazide 20-25 1 daily Associated Problem(s): COPD (chronic obstructive pulmonary disease) (HCC) Significant, significant hypoxemia recommend going to the emergency room [facility], continue current oxygen and albuterol inhaler and nebulizer solution, DuoNeb solution Zithromax, Trelegy and prednisone Associated Problem(s): Chronic hypoxemic respiratory failure (HCC) This is fairly significant she had an initial oxygen of 84, recheck was 82 I do recommend that she go to the emergency room for further evaluation and treatment. documented in this encounter [facility] 02-21-2025 Evaluation + Plan note Associated Problem(s): Hypertension Controlled, continue lisinopril hydrochlorothiazide 20-25 1 daily [facility] 02-21-2025 Evaluation + Plan note Associated Problem(s): COPD (chronic obstructive pulmonary disease) (HCC) Significant, significant hypoxemia recommend going to the emergency room [facility], continue current oxygen and albuterol inhaler and nebulizer solution, DuoNeb solution Zithromax, Trelegy and prednisone [facility] 02-21-2025 Evaluation + Plan note Associated Problem(s): Chronic hypoxemic respiratory failure (HCC) This is fairly significant she had an initial oxygen of 84, recheck was 82 I do recommend that she go to the emergency room for further evaluation and treatment. [facility] 02-21-2025 Note This is fairly signi ficant she had an initial oxygen of 84, recheck was 82 I do recommend that she go to the emergency room for further evaluation and treatment. [facility] 02-21-2025 History of Present illness Narrative Patient verified by last name and date of . Images from the original note were not included. 02/21/2025 Kendra Buitrago (: 1960) is a 64 y.o. female , Established patient, here for evaluation of the following chief complaint(s): Chronic Pain, COPD, Depression, Anxiety, Diabetes, Hypertension, Hyperlipidemia, Medication Check (6 month), and Health Maintenance (Flu vaccine- refuse/3rd covid vaccine- not done/Pcv 20 vaccine- refuse/Mammogram- not right now/Lung cancer check- getting done with pulmonology/Dexa scan- agree/Dental exam- sees [facility] dental /Rsv vaccine- not done) ASSESSMENT/PLAN: 1. Chronic obstructive pulmonary disease, unspecified COPD type (HCC) Assessment & Plan: Significant, significant hypoxemia recommend going to the emergency room [facility], continue current oxygen and albuterol inhaler and nebulizer solution, DuoNeb solution Zithromax, Trelegy and prednisone Orders: - albuterol (2.5 MG/3ML) 0.083% nebulizer solution; Take 3 mL (2.5 mg) by nebulization 4 times daily as needed for wheezing or shortness of breath., Starting 02/21/2025, Normal - albuterol 108 (90 Base) MCG/ACT inhaler; INHALE 2 PUFFS BY MOUTH AND INTO THE LUNGS EVERY 4 HOURS IF NEEDED, Normal 2. Chronic hypoxemic respiratory failure (HCC) Assessment & Plan: This is fairly significant she had an initial oxygen of 84, recheck was 82 I do recommend that she go to the emergency room for further evaluation and treatment. 3. Primary hypertension Assessment & Plan: Controlled, continue lisinopril hydrochlorothiazide 20-25 1 daily 4. Type 2 diabetes mellitus without complication, without long-term current use of insulin ([facility]) Assessment & Plan: Controlled, A1c today is 6.8 continue very strict low-fat carb diet. Orders: - AMB POC HEMOGLOBIN A1C 5. Menopause - DEXA bone density axial skeleton Follow up in about 3 months (around 05/23/2025). SUBJECTIVE/OBJECTIVE: ABILIO -Ember comes in today for 3-month follow-up on her diabetes, COPD, she has chronic hypoxia when she has hypertension. She needs an A1c today and her oxygen saturation is significantly low at 84, she is on 5 L of oxygen. She really has no new complaints, see ROS. Review of Systems Constitutional: Negative for chills and fever. HENT: Negative for ear pain, rhinorrhea and sinus pressure. Respiratory: Positive for cough, chest tightness, shortness of breath and wheezing. Cardiovascular: Negative for chest pain and palpitations. Vitals: 02/21/25 1107 02/21/25 1146 BP: 125/64 Pulse: 78 SpO2: (!) 84% (!) 82% Weight: 193 lb 6.4 oz (87.7 kg) Height: 5' 7 (1.702 m) Physical Exam Vitals and nursing note reviewed. Constitutional: General: She is not in acute distress. Appearance: Normal appearance. HENT: Head: Normocephalic and atraumatic. Right Ear: Tympanic membrane, ear canal and external ear normal. Left Ear: Tympanic membrane, ear canal and external ear normal. Mouth/Throat: Mouth: Mucous membranes are moist. Pharynx: Oropharynx is clear. Eyes: Extraocular Movements: Extraocular movements intact. Pupils: Pupils are equal, round, and reactive to light. Cardiovascular: Rate and Rhythm: Normal rate and regular rhythm. Heart sounds: Normal heart sounds. No murmur heard. Pulmonary: Effort: Pulmonary effort is normal. Breath sounds: Normal breath sounds. Musculoskeletal: Cervical back: Neck supple. Lymphadenopathy: Cervical: No cervical adenopathy. Neurological: Mental Status: She is alert. An electronic signature was used to authenticate this note. Vu Mullins MD 02/21/2025 1:03 PM Due to low oxygen level I advised pt to go to the ED- pt declined and states she will call pulmonary office but does also state she is to follow up with pulmonary tomorrow documented in this encounter [facility] 02-15-2025 Telephone encounter Note Prescription Request: ALBUTEROL HFA (VENTOLIN) INH Last medication check: 03/09/24 Last physical exam: 08/08/24 Next scheduled appointment: 02/21/25 Last date of refill on this medication 12/07/24 ( qty 18 refill 2) [facility] 02-15-2025 Miscellaneous Notes Prescription Request: ALBUTEROL HFA (VENTOLIN) INH Last medication check: 03/09/24 Last physical exam: 08/08/24 Next scheduled appointment: 02/21/25 Last date of refill on this medication 12/07/24 ( qty 18 refill 2) documented in this encounter [facility] 01-16-2025 Telephone encounter Note Prescription Request: FLUTICASONE PROP 50 MCG SPRAY Last medication check: 01/21/24 Last physical exam: 08/08/24 Next scheduled appointment: 02/21/25 Last date of refill on this medication 03/30/24 ( qty 16 g refill 2) [facility] 01-16-2025 Miscellaneous Notes Prescription Request: FLUTICASONE PROP 50 MCG SPRAY Last medication check: 01/21/24 Last physical exam: 08/08/24 Next scheduled appointment: 02/21/25 Last date of refill on this medication 03/30/24 ( qty 16 g refill 2) documented in this encounter [facility] 01-11-2025 Telephone encounter Note Prescription Request: : LISINOPRIL-HCTZ 20-25 MG TAB Last medication check: 01/24/24 Last physical exam: 08/08/24 Next scheduled appointment: 02/21/25 Last date of refill on this medication 07/17/24 ( qty 90 refill 1 ) [facility] 01-11-2025 Miscellaneous Notes Prescription Request: : LISINOPRIL-HCTZ 20-25 MG TAB Last medication check: 01/24/24 Last physical exam: 08/08/24 Next scheduled appointment: 02/21/25 Last date of refill on this medication 07/17/24 ( qty 90 refill 1 ) documented in this encounter [facility] 12-07-2024 Telephone encounter Note Reviewed chart. Refill appropriate. RX sent. [facility] 12-07-2024 Miscellaneous Notes Reviewed chart. Refill appropriate. RX sent. Prescription Request: ALBUTEROL HFA (VENTOLIN) INH Last medication check: 01/21/24 Last physical exam: 08/08/24 Next scheduled appointment: 02/21/25 Last date of refill on this medication 09/22/24 ( qty 18 refill 2) documented in this encounter [facility] 12-07-2024 Telephone encounter Note Prescription Request: ALBUTEROL HFA (VENTOLIN) INH Last medication check: 01/21/24 Last physical exam: 08/08/24 Next scheduled appointment: 02/21/25 Last date of refill on this medication 09/22/24 ( qty 18 refill 2) [facility] 10-31-2024 Telephone encounter Note Prescription Request: SERTRALINE HCL 100 MG TABLET Last medication check: 03/09/24 Last physical exam: 08/08/24 Next scheduled appointment: 02/21/25 Last date of refill on this medication 01/07/24 ( qty 90 refill 1) [facility] 10-31-2024 Miscellaneous Notes Prescription Request: SERTRALINE HCL 100 MG TABLET Last medication check: 03/09/24 Last physical exam: 08/08/24 Next scheduled appointment: 02/21/25 Last date of refill on this medication 01/07/24 ( qty 90 refill 1) documented in this encounter [facility] 09-22-2024 Telephone encounter Note Reviewed chart. Refill appropriate. RX sent. [facility] 09-22-2024 Miscellaneous Notes Reviewed chart. Refill appropriate. RX sent. Prescription Request: ALBUTEROL HFA (VENTOLIN) INH Last medication check: 08/10/24 Last physical exam: 08/08/24 Next scheduled appointment: 02/21/25 Last date of refill on this medication 06/26/24 (qty 18 refill 2) documented in this encounter [facility] 09-22-2024 Telephone encounter Note Prescription Request: ALBUTEROL HFA (VENTOLIN) INH Last medication check: 08/10/24 Last physical exam: 08/08/24 Next scheduled appointment: 02/21/25 Last date of refill on this medication 06/26/24 (qty 18 refill 2) [facility] 08-10-2024 Evaluation + Plan note Associated Problem(s): Hypertension Blood pressure was initially elevated, recheck was normal continue lisinopril hydrochlorothiazide 20-25 [facility] 08-10-2024 Miscellaneous Notes Associated Problem(s): Hypertension Blood pressure was initially elevated, recheck was normal continue lisinopril hydrochlorothiazide 20-25 Associated Problem(s): COPD (chronic obstructive pulmonary disease) (HCC) Stable, chronic hypoxic continue current inhalers Associated Problem(s): Chronic hypoxemic respiratory failure (HCC) Pulse ox was initially 79% after walking back to the room however after sitting and being away from the perfumes in the waiting room it went up to 90. Associated Problem(s): Chronic pain of left knee Injection procedure: Location left knee Consent: Verbal Consent Obtained-Discussed risks including hypo/hyperpigmentation, fat atrophy, steroid flare, bleeding and infection and potential consequences of over use of steroids. Prep: Betadine. Anesthesia: 2% lidocaine. Medication: 1 ml depomedrol 40 mg. Needle: 25 gauge 1.5 in. needle. Complications: No Complications, Hemostasis achieved. documented in this encounter [facility] 08-10-2024 Evaluation + Plan note Associated Problem(s): COPD (chronic obstructive pulmonary disease) (HCC) Stable, chronic hypoxic continue current inhalers [facility] 08-10-2024 Evaluation + Plan note Associated Problem(s): Chronic hypoxemic respiratory failure (HCC) Pulse ox was initially 79% after walking back to the room however after sitting and being away from the perfumes in the waiting room it went up to 90. [facility] 08-10-2024 Evaluation + Plan note Associated Problem(s): Chronic pain of left knee Injection procedure: Location left knee Consent: Verbal Consent Obtained-Discussed risks including hypo/hyperpigmentation, fat atrophy, steroid flare, bleeding and infection and potential consequences of over use of steroids. Prep: Betadine. Anesthesia: 2% lidocaine. Medication: 1 ml depomedrol 40 mg. Needle: 25 gauge 1.5 in. needle. Complications: No Complications, Hemostasis achieved. [facility] 08-10-2024 Note Injection procedure: Location left knee Consent: Verbal Consent Obtained-Discussed risks including hypo/hyperpigmentation, fat atrophy, steroid flare, bleeding and infection and potential consequences of over use of steroids. Prep: Betadine. Anesthesia: 2% lidocaine. Medication: 1 ml depomedrol 40 mg. Needle: 25 gauge 1.5 in. needle. Complications: No Complications, Hemostasis achieved. [facility] 08-10-2024 History of Present illness Narrative Patient verified by last name and date of . Images from the original note were not included. 08/10/2024 Kendra Buitrago (: 1960) is a 63 y.o. female , Established patient, here for evaluation of the following chief complaint(s): Knee Pain (Left knee- asking for cortisone inj) ASSESSMENT/PLAN: 1. Chronic pain of left knee Assessment & Plan: Injection procedure: Location left knee Consent: Verbal Consent Obtained-Discussed risks including hypo/hyperpigmentation, fat atrophy, steroid flare, bleeding and infection and potential consequences of over use of steroids. Prep: Betadine. Anesthesia: 2% lidocaine. Medication: 1 ml depomedrol 40 mg. Needle: 25 gauge 1.5 in. needle. Complications: No Complications, Hemostasis achieved. Orders: - Large Joint Injection/Arthrocentesis - methylPREDNISolone acetate (DEPO-Medrol) injection 40 mg; 40 mg, Intra-artICUlar, Once, On Renetta 08/10/24 at 1145, For 1 dose - lidocaine (Xylocaine) 2 % injection 2 mL; 2 mL, Injection, Once, On Renetta 08/10/24 at 1145, For 1 dose 2. Chronic obstructive pulmonary disease, unspecified COPD type (HCC) Assessment & Plan: Stable, chronic hypoxic continue current inhalers 3. Chronic hypoxemic respiratory failure (HCC) Assessment & Plan: Pulse ox was initially 79% after walking back to the room however after sitting and being away from the perfumes in the waiting room it went up to 90. 4. Primary hypertension Assessment & Plan: Blood pressure was initially elevated, recheck was normal continue lisinopril hydrochlorothiazide 20-25 Follow up if symptoms worsen or fail to improve. SUBJECTIVE/OBJECTIVE: ABILIO Fraser comes in today for follow-up on the pain in her left knee she is here for an injection she said the last time he did that about 8 months ago it worked great and she is hoping it will work again. She said the pain is continued to get worse she may have a little swelling at times but nothing significant. Blood pressure is elevated today we will recheck that prior to discharge and she also had a pulse ox it was significantly low at 79 after walking back. Review of Systems Respiratory: Positive for shortness of breath and wheezing. Negative for chest tightness. Cardiovascular: Negative for chest pain and palpitations. Musculoskeletal: Positive for arthralgias, gait problem and joint swelling. Neurological: Negative for weakness and numbness. Vitals: 08/10/24 1113 08/10/24 1132 BP: (!) 158/65 104/65 Pulse: 90 SpO2: (!) 79% 90% Weight: 194 lb 3.2 oz (88.1 kg) Height: 5' 7 (1.702 m) Physical Exam Vitals and nursing note reviewed. Constitutional: Appearance: Normal appearance. She is obese. Musculoskeletal: Comments: Left knee with minimal effusion, no significant swelling normal range of motion with crepitus. Negative Quintin's negative Barbie's normal stability. Neurological: Mental Status: She is alert. An electronic signature was used to authenticate this note. Vu Mullins MD 08/10/2024 11:36 AM documented in this encounter [facility] 08-08-2024 Evaluation + Plan note Associated Problem(s): Moderate episode of recurrent major depressive disorder (HCC) Remission, continue sertraline 100 mg daily [facility] 08-08-2024 Evaluation + Plan note Associated Problem(s): Hypertriglyceridemia Stable, continue very strict low-fat low-carb diet. [facility] 08-08-2024 Evaluation + Plan note Associated Problem(s): Anxiety Remission, continue sertraline 100 mg daily [facility] 08-08-2024 Miscellaneous Notes Associated Problem(s): Moderate episode of recurrent major depressive disorder (HCC) Remission, continue sertraline 100 mg daily Associated Problem(s): Hypertriglyceridemia Stable, continue very strict low-fat low-carb diet. Associated Problem(s): Anxiety Remission, continue sertraline 100 mg daily Associated Problem(s): Type 2 diabetes mellitus without complication, without long-term current use of insulin ([facility]/HCC) (HCC) Controlled, last A1c was 6.4, continue very strict low-carb diet. Associated Problem(s): Chronic pain of left knee Schedule patient for left knee injection Associated Problem(s): Hypertension Controlled, continue lisinopril hydrochlorothiazide 20-25 Associated Problem(s): COPD (chronic obstructive pulmonary disease) (HCC) stable but very labile, continue Trelegy, Daliresp 500 mg daily, DuoNeb solution as needed, albuterol as needed and Pulmicort daily. Associated Problem(s): Chronic hypoxemic respiratory failure (HCC) Stable, continue oxygen at current settings and inhalers as needed. documented in this encounter [facility] 08-08-2024 Evaluation + Plan note Associated Problem(s): Type 2 diabetes mellitus without complication, without long-term current use of insulin ([facility]/HCC) (HCC) Controlled, last A1c was 6.4, continue very strict low-carb diet. [facility] 08-08-2024 Evaluation + Plan note Associated Problem(s): Chronic pain of left knee Schedule patient for left knee injection [facility] 08-08-2024 Evaluation + Plan note Associated Problem(s): Hypertension Controlled, continue lisinopril hydrochlorothiazide 20-25 [facility] 08-08-2024 Evaluation + Plan note Associated Problem(s): COPD (chronic obstructive pulmonary disease) (HCC) stable but very labile, continue Trelegy, Daliresp 500 mg daily, DuoNeb solution as needed, albuterol as needed and Pulmicort daily. [facility] 08-08-2024 Evaluation + Plan note Associated Problem(s): Chronic hypoxemic respiratory failure (HCC) Stable, continue oxygen at current settings and inhalers as needed. [facility] 08-08-2024 History of Present illness Narrative Patient verified by last name and date of . Images from the original note were not included. Counseled [facility] - [address] [address] Dept: [phone] Dept Chief Complaint: Kendra Buitrago is an 63 y.o. female here for an annual wellness visit. Assessment/Plan : Problem List Items Addressed This Visit Chronic hypoxemic respiratory failure (HCC) Stable, continue oxygen at current settings and inhalers as needed. Chronic pain of left knee Schedule patient for left knee injection COPD (chronic obstructive pulmonary disease) ([facility]) stable but very labile, continue Trelegy, Daliresp 500 mg daily, DuoNeb solution as needed, albuterol as needed and Pulmicort daily. Moderate episode of recurrent major depressive disorder ([facility]) Remission, continue sertraline 100 mg daily Type 2 diabetes mellitus without complication, without long-term current use of insulin ([facility]) (HCC) Controlled, last A1c was 6.4, continue very strict low-carb diet. Relevant Orders Comprehensive metabolic panel Microalbumin / creatinine urine ratio Hemoglobin A1c Diabetes Foot Exam (Completed) Anxiety Remission, continue sertraline 100 mg daily Hypertension Controlled, continue lisinopril hydrochlorothiazide 20-25 Hypertriglyceridemia Stable, continue very strict low-fat low-carb diet. Relevant Orders Lipid panel Other Visit Diagnoses Routine general medical examination at health care facility - Primary Relevant Orders ECG 12 lead (Completed) I have reviewed and reconciled the medication list with the patient today. Current Outpatient Medications Medication Sig Dispense Refill albuterol (2.5 MG/3ML) 0.083% nebulizer solution Take 3 mL (2.5 mg) by nebulization 4 times daily as needed for wheezing or shortness of breath. 150 mL 1 albuterol 108 (90 Base) MCG/ACT inhaler INHALE 2 PUFF BY MOUTH AND INTO THE LUNGS EVERY 4 HOURS IF NEEDED 18 each 2 Blood Glucose Monitoring Suppl device Check glucose fasting in am and 2 hours after evening meal. 1 Device 0 budesonide (Pulmicort) 0.5 MG/2ML nebulizer solution fluticasone (Flonase) 50 MCG/ACT nasal spray Administer 2 sprays into each nostril daily. Shake gently. Before first use, prime pump. After use, clean tip and replace cap. 16 g 2 furosemide (Lasix) 40 MG tablet Take 40 mg by mouth daily. Glucose Blood (Blood Glucose Test) strip Use as directed 3x day. 90 strip 11 ipratropium-albuterol (Duo-Neb) 0.5-2.5 mg/3 mL nebulizer solution INHALE 1 VIAL BY NEBULIZATION four times a day if needed for wheezing 180 mL 1 lisinopril-hydroCHLOROthiazide 20-25 MG tablet TAKE 1 TABLET BY MOUTH EVERY DAY IN THE MORNING 90 tablet 1 omega-3 (fish oil) 1200 MG capsule 1,200 capsules. oxygen (O2) gas Inhale 3 L/min continuous. via nasal canula 2 liters daytime and 4 liters at night pseudoephedrine-guaiFENesin ER (Mucinex D) 60-600 MG 12 hr tablet Take 1 tablet by mouth every 12 hours. Do not crush, chew, or split. 60 tablet 2 Roflumilast (Daliresp) 500 MCG tablet Take 500 mcg by mouth daily. sertraline (Zoloft) 100 MG tablet take 1 tablet by mouth once daily 90 tablet 1 Trelegy Ellipta 100-62.5-25 MCG/INH aerosol powder INHALE 1 PUFF INTO THE LUNGS ONCE DAILY WITH GOOD ORAL CARE No current facility-administered medications for this visit. Also reviewed during this visit: The following health maintenance schedule was reviewed with the patient and provided in printed form in the after visit summary: Health Maintenance Topic Date Due Medicare Initial Physical (IPPE) Never done Bone Density Scan Never done Diabetes: Dental Exam Never done Mammogram 08/05/2022 Diabetes: Retinopathy Screening 06/22/2023 Diabetes: Urine Albumin-Creatinine Ratio for Kidney Health 07/23/2024 Lipid Panel 07/23/2024 Influenza Vaccine (1) 12/04/2024 (Originally 02/06/2024) RSV Immunization for Adults (1 - Risk 60-74 years 1-dose series) 01/20/2025 (Originally 2018) Pneumococcal Vaccine: 50+ Years (2 of 2 - PCV) 01/20/2025 (Originally 11/26/2019) Zoster Vaccines (1 of 2) 08/08/2025 (Originally 2008) Hepatitis C Screening 08/08/2025 (Originally 1976) COVID-19 Vaccine ( - season) 2025 (Originally 02/06/2024) Lung Cancer Screening 11/01/2024 Diabetes: Estimated Glomerular Filtration Rate for Kidney Health 11/09/2024 Diabetes: Hemoglobin A1C 01/20/2025 Depression Monitoring 02/08/2025 Diabetes: Foot Exam 08/08/2025 Colorectal Cancer Screening 08/18/2025 DTaP/Tdap/Td Vaccines (2 - Td or Tdap) 07/20/2026 Medicare Advantage Annual Wellness Visit Completed RSV Immunization under 20 Months Aged Out HIB Vaccines Aged Out Hepatitis B Vaccines Aged Out IPV Vaccines Aged Out Hepatitis A Vaccines Aged Out Meningococcal Vaccine Aged Out Rotavirus Vaccines Aged Out HPV Vaccines Aged Out MMR Vaccines Discontinued Cervical Cancer Screening Discontinued List of current healthcare providers: Patient Care Team: Vu Mullins MD as PCP - General Lita Rossi RN as Churn Driller (Reporter Manager) Orders Placed This Encounter Procedures Lipid panel Standing Status: Future Number of Occurrences: 1 Standing Expiration Date: 08/07/2025 Comprehensive metabolic panel Standing Status: Future Number of Occurrences: 1 Standing Expiration Date: 08/07/2025 Microalbumin / creatinine urine ratio Standing Status: Future Number of Occurrences: 1 Standing Expiration Date: 08/07/2025 Hemoglobin A1c Standing Status: Future Number of Occurrences: 1 Standing Expiration Date: 08/07/2025 ECG 12 lead Order Specific Question: Reason for exam: Answer: Annual Physical Hm Diabetes Foot Exam Review of Systems Constitutional: Negative for chills and fever. Respiratory: Negative for shortness of breath. Cardiovascular: Negative for chest pain and palpitations. Gastrointestinal: Negative for abdominal pain, blood in stool, constipation and diarrhea. Genitourinary: Negative for dysuria, frequency, hematuria and urgency. Neurological: Negative for weakness and numbness. Psychiatric/Behavioral: Negative for dysphoric mood. The patient is not nervous/anxious. Physical Exam Vitals and nursing note reviewed. Constitutional: General: She is not in acute distress. Appearance: Normal appearance. HENT: Head: Normocephalic. Right Ear: Tympanic membrane, ear canal and external ear normal. Left Ear: Tympanic membrane, ear canal and external ear normal. Mouth/Throat: Mouth: Mucous membranes are moist. Pharynx: Oropharynx is clear. Eyes: Extraocular Movements: Extraocular movements intact. Pupils: Pupils are equal, round, and reactive to light. Neck: Thyroid: No thyromegaly. Vascular: No carotid bruit. Cardiovascular: Rate and Rhythm: Normal rate and regular rhythm. Heart sounds: Normal heart sounds. No murmur heard. Pulmonary: Effort: Pulmonary effort is normal. Breath sounds: Examination of the right-upper field reveals decreased breath sounds. Examination of the left-upper field reveals decreased breath sounds. Examination of the right-middle field reveals decreased breath sounds. Examination of the left-middle field reveals decreased breath sounds. Examination of the right-lower field reveals decreased breath sounds. Examination of the left-lower field reveals decreased breath sounds. Decreased breath sounds present. Abdominal: General: Bowel sounds are normal. Palpations: Abdomen is soft. Musculoskeletal: General: Normal range of motion. Cervical back: Normal range of motion. Lymphadenopathy: Cervical: No cervical adenopathy. Skin: General: Skin is warm and dry. Neurological: General: No focal deficit present. Mental Status: She is alert and oriented to person, place, and time. Comments: Diabetic foot check: Normal strength and range of motion of toes, feet, and ankles bilaterally. No joint deformity. No cyanosis or clubbing. 100% sensation with 10 gram filament. Dorsalis pedis pulses intact bilaterally. Capillary refill at the toes was less than 2 seconds. Light touch sensation intact bilaterally. Hair growth present on feet and toes bilaterally. No skin breakdown, erythema, rub spots, blisters, scaling, or ulcers. No calluses or corns. Toenails thin and not ingrown. No evidence of fungal infection. Psychiatric: Mood and Affect: Mood normal. Objective : BP 124/67 Pulse 92 Ht 5' 7 (1.702 m) Wt 189 lb 9.6 oz (86 kg) SpO2 91% BMI 29.70 kg/m Vision Screening Right eye Left eye Both eyes Without correction 20/100 20/25 20/25 With correction Subjective : Ember comes in today for her welcome to Medicare annual Medicare well visit. She has a significant history of COPD and she is on continuous oxygen but she says that is fairly stable right now unless she does anything strenuous. She has a history of depression and anxiety, that seems to be in remission currently she is diabetic and she did not bring any blood sugar numbers and she has a history of hypertension and her left knee she has chronic pain in the last time we injected that she said that worked well and that was about 5 months ago. Health Risk Assessment: General: General In general, how would you say your health is?: (!) (Patient-Rptd) (P) Poor In the past 7 days, have you experienced any of the following: New or Increased Pain, New or Increased Fatigue, Loneliness, Social Isolation, Stress or Anger?: (!) (Patient-Rptd) (P) Yes Select all that apply: (!) (Patient-Rptd) (P) New or Increased Pain, New or Increased Fatigue Do you get the social and emotional suppport you need?: (Patient-Rptd) (P) Yes Interventions: Pain Issues: left knee pain Health Habits/Nutrition: Health Habits / Nutrition On average, how many days per week do you engage in moderate to strenous exercise (like a brisk walk)?: (!) (Patient-Rptd) (P) 0 days On average, how man minutes do you engage in exercise at this level?: (Patient-Rptd) (P) 30 min Have you lost any weight without trying in the past 3 months? : (Patient-Rptd) (P) No Have you seen the dentist within the past year?: (!) (Patient-Rptd) (P) No Interventions: Dental exam overdue: Patient encouraged to make appointment with his / her dentist Hearing/ Vision: Hearing / Vision Do you or your family notice any trouble with your hearing that hasn't been managed with hearing aids?: (Patient-Rptd) (P) No Do you have difficulty driving, watching TV, or doing any of your daily activities because of your eyesight?: (Patient-Rptd) (P) No Have you had an eye exam within the past year?: (!) (Patient-Rptd) (P) No Vision Screening Right eye Left eye Both eyes Without correction 20/100 20/25 20/25 With correction Interventions: Vision concerns: Patient encouraged to make appointment with his / her diabetes specialist Safety: Safety Do you have a working smoke detector?: (Patient-Rptd) (P) Yes Do you have any tripping hazards - loose or unsecured carpets or rugs?: (Patient-Rptd) (P) No Do you have any tripping hazards - clutter in doorways, halls, or stairs?: (Patient-Rptd) (P) No Do you have either shower bars, grab bars, non-slip mats or non-slip surfaces in your shower or bathtub? : (Patient-Rptd) (P) Yes Do all your stairways have a railing or banister? : (Patient-Rptd) (P) Yes Do you fasten your seatbelt when you are in a car?: (Patient-Rptd) (P) Yes ADL: ADL In the past 7 days, did you need help from others to perform any of the following everyday activities: Eating, dressing, grooming,bathing, toileting, or walking / balance? : (Patient-Rptd) (P) No In the past 7 days, did you need help from others to take care of any of the following: laundry, housekeeping, banking / finances,shopping, telephone use, food preparation, transportation, or taking medications? : (Patient-Rptd) (P) Yes Select all that apply: (Patient-Rptd) (P) Housekeeping Interventions: Living Will: Living Will Do you have a living will?: (Patient-Rptd) (P) No Interventions: Advance Care Planning addressed with patient today Cognitive: Cognitive Screening: Mini-Cog Clock Drawing Test (CDT): 2 Words Recalled: 3 Total Score: 5 Total Score Interpretation: Normal Mini-Cog Interventions: Fall Risk: Fall Risk One or more falls in the last year:: (Patient-Rptd) (P) No Advised to use a cane or walker to get around safely:: (Patient-Rptd) (P) No Feels unsteady when walking:: (Patient-Rptd) (P) No Steadies self on furniture while walking at home:: (Patient-Rptd) (P) No Worried about falling:: (Patient-Rptd) (P) No Depression Screening: Interventions: Tobacco Use: Social History Tobacco Use Smoking Status Some Days Current packs/day: 0.01 Average packs/day: 0.5 packs/day for 40.9 years (20.0 ttl pk-yrs) Types: Cigarettes Start date: 09/1983 Smokeless Tobacco Never Alcohol Use: Social Drivers of Health: SDOH risk assessment performed and documented today by members of the health care team. A total time of 10-15 minutes was spent obtaining information from the patient and discussing options to address the patient's social risk factors and unmet needs. Social Drivers of Health with Concerns Concerns Present Tobacco Use: High Risk (08/08/2024) Physical Activity: Inactive (08/08/2024) Stress: Stress Concern Present (08/08/2024) Social Connections: Moderately Isolated (08/08/2024) Depression: Moderate depression (08/08/2024) documented in this encounter [facility] 08-08-2024 Instructions Vu Mullins MD - 08/08/2024 7:45 AM EST Personalized Preventative Plan for Kendra Buitrago - 08/08/2024 Medicare offers a range of preventative health benefits. Some of the tests and screenings are paid in full while others may be subject to a deductible, co-insurance, and / or copay. Some of these benefits include a comprehensive review of your medical history including lifestyle, illnesses that may run in your family, and various assessments and screenings as appropriate. After reviewing your medical record and screening and assessments performed today, your provider may have ordered immunizations, labs, imaging, and / or referrals for you. A list of these orders (if applicable) as well as your Preventative Care list are included within your After Visit Summary for your review. Other Preventative Recommendations: A preventive eye exam by an diabetes specialist is recommended every 1-2 years to screen for glaucoma, cataracts, macular degeneration, and other eye disorders. A preventive dental visit is recommended every 6 months. Try to get at least 150 minutes of exercise per week or 10,000 steps per day on a pedometer. You need 1200-1500mg of calcium and 0785-1028 international units of vitamin D per day. It is possible to meet your calcium requirement with diet alone, but a vitamin D supplement is usually necessary to meet this goal. When exposed to the sun, use a sunscreen that protects against both UVA and UVB radiation with an SPF of 30 or greater. Reapply every 2-3 hours or after sweating, drying off with a towel, or swimming. Always wear a seat belt when traveling in a car. Always wear a helmet when riding a bicycle or a motorcycle documented in this encounter [facility] 07-17-2024 Telephone encounter Note Reviewed chart. Refill appropriate. RX sent. [facility] 07-17-2024 Miscellaneous Notes Reviewed chart. Refill appropriate. RX sent. Prescription Request: Last medication check: 06/21/24 Last physical exam: 07/23/23 Next scheduled appointment: 08/08/24 Last date of refill on this medication 01/21/24 90 and 1 refill documented in this encounter [facility] 07-17-2024 Telephone encounter Note Prescription Request: Last medication check: 06/21/24 Last physical exam: 07/23/23 Next scheduled appointment: 08/08/24 Last date of refill on this medication 01/21/24 90 and 1 refill [facility] 06-26-2024 Telephone encounter Note Reviewed chart. Refill appropriate. RX sent. [facility] 06-26-2024 Miscellaneous Notes Reviewed chart. Refill appropriate. RX sent. Prescription Request: Last medication check: 01/21/24 Last physical exam: 07/23/23 Last completed appointment: 06/21/24 Next scheduled appointment: 07/12/24 Last date of refill on this medication: 04/14/24 documented in this encounter [facility] 06-26-2024 Telephone encounter Note Prescription Request: Last medication check: 01/21/24 Last physical exam: 07/23/23 Last completed appointment: 06/21/24 Next scheduled appointment: 07/12/24 Last date of refill on this medication: 04/14/24 [facility] 06-21-2024 Evaluation + Plan note Associated Problem(s): Weakness of both lower extremities Referral to physical therapy for core strengthening and leg strengthening [facility] 06-21-2024 Note Referral to physical therapy for core strengthening and leg strengthening [facility] 06-21-2024 Miscellaneous Notes Associated Problem(s): Weakness of both lower extremities Referral to physical therapy for core strengthening and leg strengthening Associated Problem(s): Acute non-recurrent frontal sinusitis Zithromax Z-Ammon take as directed. Saline nasal spray and humidifier. Associated Problem(s): COPD exacerbation (HCC) Resolved, continue current medications. Associated Problem(s): COPD (chronic obstructive pulmonary disease) (HCC) Stable, continue albuterol, and DuoNeb solution and Daliresp. And Trelegy Associated Problem(s): Chronic hypoxemic respiratory failure (HCC) Stable, continue oxygen and adjust to keep sats above 90, nebulizer treatment and inhalers. Addended by: VU MULLINS on: 06/21/2024 03:25 PM Modules accepted: Orders documented in this encounter [facility] 06-21-2024 Evaluation + Plan note Associated Problem(s): Acute non-recurrent frontal sinusitis Zithromax Z-Ammon take as directed. Saline nasal spray and humidifier. [facility] 06-21-2024 Evaluation + Plan note Associated Problem(s): COPD exacerbation (HCC) Resolved, continue current medications. [facility] 06-21-2024 Evaluation + Plan note Associated Problem(s): COPD (chronic obstructive pulmonary disease) (HCC) Stable, continue albuterol, and DuoNeb solution and Daliresp. And Trelegy [facility] 06-21-2024 Evaluation + Plan note Associated Problem(s): Chronic hypoxemic respiratory failure (HCC) Stable, continue oxygen and adjust to keep sats above 90, nebulizer treatment and inhalers. [facility] 06-21-2024 History of Present illness Narrative Patient verified by last name and date of . Images from the original note were not included. 06/21/2024 Kendra Buitrago (: 1960) is a 63 y.o. female , Established patient, here for evaluation of the following chief complaint(s): Transitional Care Management Outreach and Hospital Follow-up ([place] 06/07-06/12/24/) ASSESSMENT/PLAN: 1. Chronic obstructive pulmonary disease, unspecified COPD type (HCC) Assessment & Plan: Stable, continue albuterol, and DuoNeb solution and Daliresp. And Trelegy 2. COPD exacerbation (HCC) Assessment & Plan: Resolved, continue current medications. 3. Chronic hypoxemic respiratory failure (HCC) Assessment & Plan: Stable, continue oxygen and adjust to keep sats above 90, nebulizer treatment and inhalers. 4. Acute non-recurrent frontal sinusitis Assessment & Plan: Zithromax Z-Ammon take as directed. Saline nasal spray and humidifier. 5. Weakness of both lower extremities Assessment & Plan: Referral to physical therapy for core strengthening and leg strengthening Orders: - [facility] Follow up if symptoms worsen or fail to improve. SUBJECTIVE/OBJECTIVE: ABILIO Fraser comes in today for follow-up on her hospital admission she was admitted on and was in for 6 days, no contact was made within 48 hours so we are unable to bill this as a ZEINAB. Her pulse ox today which she walks back to the room was 83 however when she sat for a period of time her oxygen was 94% on 5 L. She states she was put on antibiotics while she was in the hospital she was diagnosed with a COPD exacerbation with hypercapnia and hypoxia and she also was found to have congestive heart failure on a CT scan of her lung and was sent home on Lasix. Her echocardiogram showed normal ejection fraction of 60%. She said she had been feeling fine but the last couple days she has started to feel like her sinuses are plugged up like she is getting congested and is wondering if she is starting to come down with a sinus infection. D is also complaining of weakness of her legs she says she can only stand for couple of minutes says this has been an ongoing problem and since she was in the hospital it progressively had gotten worse. We discussed physical therapy and she is agreeable. She also says that her back in the lower region spasms down. Review of Systems Constitutional: Negative for chills and fever. HENT: Negative for ear pain, rhinorrhea and sinus pressure. Respiratory: Positive for shortness of breath. Cardiovascular: Negative for chest pain and palpitations. Vitals: 06/21/24 1348 06/21/24 1412 BP: 107/53 Pulse: 89 SpO2: (!) 83% 94% Weight: 189 lb 3.2 oz (85.8 kg) Height: 5' 7 (1.702 m) Physical Exam Vitals and nursing note reviewed. Constitutional: General: She is not in acute distress. Appearance: Normal appearance. HENT: Head: Normocephalic and atraumatic. Nose: Right Sinus: Frontal sinus tenderness present. No maxillary sinus tenderness. Left Sinus: Frontal sinus tenderness present. No maxillary sinus tenderness. Mouth/Throat: Mouth: Mucous membranes are moist. Pharynx: Oropharynx is clear. Eyes: Extraocular Movements: Extraocular movements intact. Pupils: Pupils are equal, round, and reactive to light. Cardiovascular: Rate and Rhythm: Normal rate and regular rhythm. Heart sounds: Normal heart sounds. No murmur heard. Pulmonary: Effort: Pulmonary effort is normal. Breath sounds: Examination of the right-lower field reveals decreased breath sounds. Examination of the left-lower field reveals decreased breath sounds. Decreased breath sounds present. No wheezing, rhonchi or rales. Musculoskeletal: Cervical back: Neck supple. Lymphadenopathy: Cervical: No cervical adenopathy. Neurological: Mental Status: She is alert. An electronic signature was used to authenticate this note. Vu Mullins MD 06/21/2024 3:25 PM documented in this encounter [facility] 06-21-2024 Note Addended by: VU MULLINS on: 06/21/2024 03:25 PM Modules accepted: Orders [facility] 06-21-2024 Note Addended by: VU MULLINS on: 06/21/2024 03:25 PM Modules accepted: Orders [facility] 06-12-2024 Note [facility] Medical Records Department [address] [place] [id number] Discharge Summary 06/12/24 1131 MR#: [id number] Acct: [id number] Name: KENDRA BUITRAGO Rep #: [id number] : 1960 63 From: Jim Gill MD PCP: Dr. Vu Mullins MD Status:ADM IN Location: [place] [address] Providers Date of Admission: 06/07/24 Date of Discharge: 06/12/24 Primary Care Physician: Dr. Vu Mullins MD Consultations 06/07/24 14:01 Consult: Inspector Set Up And Lay Out / Pulmonary Medicine Routine Consulting Provider: Intensivists/Pulmonary Med Reason for Consult: Acute hypoxic respiratory failure EMERGENT Consult: No MD Notified: Yes Date Notified: 06/07/24 Time Notified: 13:51 Method of Notification: Text Reason For Visit: ACUTE HYPOXIC RESPIRATORY FAILURE Diagnosis Discharge Diagnosis (1) Acute respiratory failure with hypoxia and hypercarbia: Status: Acute Code(s): J96.01 - Acute respiratory failure with hypoxia; J96.02 - Acute respiratory failure with hypercapnia (2) Acute exacerbation of chronic obstructive pulmonary disease (COPD): Status: Chronic Code(s): J44.1 - Chronic obstructive pulmonary disease with (acute) exacerbation Plan Patient is a 63-year-old lady brought to the emergency department by the on account of progressive shortness of breath 1. Acute hypoxic and hypercapnic respiratory failure ??? Multifactorial including COPD with acute exacerbation as well as congestive heart failure. CT of the chest obtained was negative for PE patient was however noted to have bilateral upper lobe interstitial edema and extensive pulmonary edema and small right pleural effusion with minimal ascites. Patient admitted to the intensive care unit placed on noninvasive ventilation BiPAP consultation placed to pulmonary medicine ??? 06/08/2024; patient remains on noninvasive ventilation via BiPAP. Repeat ABG last evening still demonstrated presence of significant hypercapnia ??? 06/09/2024; patient has been weaned off noninvasive ventilation currently on nasal cannula. Patient however remains significantly dyspneic at rest ??? 06/10/2024;Patient seen clinical condition continues to improve. Requested for 6 minutes walk to determine patient readiness for discharge ??? 06/11/2024; patient still requiring significant amount of oxygen at rest currently at 6 to 8 L at rest ??? I have reviewed the oxygen testing, and this patient qualifies for the home equipment and portability. The patient is mobile in the home and the community. 2. COPD with acute exacerbation ??? Patient started on bronchodilator treatment, systemic steroid as well as antibiotic therapy. Patient placed on oxygen titrated to keep saturation greater than 90. 3. Acute congestive heart failure with preserved ejection fraction ??? Type unspecified at this point. Patient was noted to have pulmonary edema on her CAT scan started on furosemide, placed on low-sodium diet strict input and output Daily weights supplemental oxygen and echo ordered for EF assessment ??? 06/08/2024; patient is in negative fluid balance of 0.7 L since admission ??? 06/09/2024; 2D echo did showNormal LV size. Left ventricular systolic function is normal. The left ventricular ejection fraction is 60 %. Mild concentric left ventricular hypertrophy 4. Chronic hypoxic respiratory failure ??? Patient is on baseline home O2 5. Hypertension ??? Blood pressure controlled, home medications continued with dose adjustment as needed 6. Tobacco dependence ??? Counseled on cessation, offered nicotine patch for tobacco cravings 7. DVT prophylaxis ??? On enoxaparin 8. Hypokalemia ??? Secondary to use of diuretics, corrected per protocol repeat BMP ordered for a.m. Time spent in the patient's overall evaluation,decision-making process, review of diagnostic data, adjustment of management, discussion with other providers, nursing nursing and ancillary staff involved in patient's care documentation, 38 minutes Medications at Discharge Home Medications albuterol sulfate 90 mcg/actuation aerosol inhaler 1 puff inhalation Q6H PRN SOB 09/19/21 calcium 600 mg (as carbonate)-vitamin D3 10 mcg (400 unit) tablet (Calcium 600 + D(3)) 1 tab PO MOWEFR 09/19/21 fluticasone fur. 100 mcg-umeclid 62.5 mcg-vilant 25 mcg inhalat.powder (Trelegy Ellipta) 1 inh inhalation DAILY 09/19/21 lisinopril 20 mg-hydrochlorothiazide 25 mg tablet 1 tab PO DAILY 09/19/21 naproxen sodium 220 mg tablet (Aleve) 220 mg PO BID PRN Pain 09/19/21 omega 1-gdy-gjd-fish oil 1,200 mg (144 mg-216 mg) capsule (Fish Oil) 1,200 cap PO DAILY 09/19/21 simethicone 80 mg chewable tablet 80 mg PO QHS PRN Indigestion 09/19/21 prednisone 10 mg tablet 10 mg PO DAILY #32 tabs 01/22/23 sertraline 100 mg tablet 100 mg PO DAILY mood 06/08/24 azithromycin 250 mg tablet 500 mg (2 x 250 mg) PO Q24 #5 tabs 06/12/24 furosemide 4 (more content not included)... [facility] 05-03-2024 Evaluation + Plan note Associated Problem(s): Nasal congestion She is prescription for Mucinex D sent to pharmacy she is to take this twice a day. She is to use a saline nasal spray and saline gel frequently and she is to use Flonase 2 sprays every night at bedtime. [facility] 05-03-2024 Miscellaneous Notes Associated Problem(s): Nasal congestion She is prescription for Mucinex D sent to pharmacy she is to take this twice a day. She is to use a saline nasal spray and saline gel frequently and she is to use Flonase 2 sprays every night at bedtime. documented in this encounter [facility] 05-03-2024 History of Present illness Narrative Patient verified by last name and date of . Images from the original note were not included. 05/03/2024 Kendra Buitrago (: 1960) is a 63 y.o. female , Established patient, here for evaluation of the following chief complaint(s): Sinus Problem (Worried getting sick) and Joint Swelling (Left ankle ) ASSESSMENT/PLAN: 1. Nasal congestion Assessment & Plan: She is prescription for Mucinex D sent to pharmacy she is to take this twice a day. She is to use a saline nasal spray and saline gel frequently and she is to use Flonase 2 sprays every night at bedtime. Follow up if symptoms worsen or fail to improve. SUBJECTIVE/OBJECTIVE: ABILIO Fraser comes in today complaining that she thinks she has had some sinus problems she is having difficulty breathing through her nose, she does wear oxygen 24/7 and she says at home it does have humidification on the but not reportable. She has been taking some Mucinex but she says her nasal passages are very dry and everything seems to be thick and going and she is having difficulty clearing her nasal passages. Review of Systems Constitutional: Negative for chills and fever. HENT: Positive for congestion. Negative for ear pain, nosebleeds, postnasal drip, rhinorrhea and sinus pressure. Respiratory: Negative for shortness of breath. Cardiovascular: Negative for chest pain and palpitations. Vitals: 05/03/24 0841 BP: 124/60 Pulse: 93 Temp: 37.1 C (98.8 F) SpO2: (!) 88% Weight: 191 lb (86.6 kg) Height: 5' 7 (1.702 m) Physical Exam Vitals and nursing note reviewed. Constitutional: General: She is not in acute distress. Appearance: Normal appearance. HENT: Head: Normocephalic and atraumatic. Right Ear: Tympanic membrane, ear canal and external ear normal. Left Ear: Tympanic membrane, ear canal and external ear normal. Nose: Mucosal edema and congestion present. No rhinorrhea. Right Turbinates: Swollen. Left Turbinates: Swollen. Right Sinus: No maxillary sinus tenderness or frontal sinus tenderness. Left Sinus: No maxillary sinus tenderness or frontal sinus tenderness. Mouth/Throat: Mouth: Mucous membranes are moist. Pharynx: Oropharynx is clear. Eyes: Extraocular Movements: Extraocular movements intact. Pupils: Pupils are equal, round, and reactive to light. Cardiovascular: Rate and Rhythm: Normal rate and regular rhythm. Heart sounds: Normal heart sounds. No murmur heard. Pulmonary: Effort: Pulmonary effort is normal. Breath sounds: Normal breath sounds. Musculoskeletal: Cervical back: Neck supple. Lymphadenopathy: Cervical: No cervical adenopathy. Neurological: Mental Status: She is alert. An electronic signature was used to authenticate this note. Vu Mullins MD 05/03/2024 10:08 AM documented in this encounter [facility] 04-14-2024 Telephone encounter Note Prescription Request: Last medication check: 01/21/24 Last physical exam: 07/23/23 Next scheduled appointment: 08/08/24 Last date of refill on this medication 02/17/24 8.5 each 0 refill [facility] 04-14-2024 Miscellaneous Notes Prescription Request: Last medication check: 01/21/24 Last physical exam: 07/23/23 Next scheduled appointment: 08/08/24 Last date of refill on this medication 02/17/24 8.5 each 0 refill documented in this encounter [facility] 04-12-2024 Evaluation + Plan note Associated Problem(s): Acute non-recurrent frontal sinusitis Doxycycline 100 mg twice a day x 10 days Saline gel to use in her nares to prevent drying out due to the oxygen. [facility] 04-12-2024 Evaluation + Plan note Associated Problem(s): Hypertension Blood pressure is initially elevated, recheck was still high follow-up in 1 week for blood pressure check, continue lisinopril hydrochlorothiazide 20-25 mg [facility] 04-12-2024 Miscellaneous Notes Associated Problem(s): Acute non-recurrent frontal sinusitis Doxycycline 100 mg twice a day x 10 days Saline gel to use in her nares to prevent drying out due to the oxygen. Associated Problem(s): Hypertension Blood pressure is initially elevated, recheck was still high follow-up in 1 week for blood pressure check, continue lisinopril hydrochlorothiazide 20-25 mg Associated Problem(s): Chronic hypoxemic respiratory failure (HCC) Stable, continue oxygen she currently is on 4 L Associated Problem(s): COPD with acute exacerbation (HCC) Medrol Dosepak use as directed. Doxycycline 100 mg twice a day for 10 days Nebulizer therapy every 6 hours for the next couple days and continue O2 documented in this encounter [facility] 04-12-2024 Evaluation + Plan note Associated Problem(s): Chronic hypoxemic respiratory failure (HCC) Stable, continue oxygen she currently is on 4 L Crush on original products 04-12-2024 Evaluation + Plan note Associated Problem(s): COPD with acute exacerbation (HCC) Medrol Dosepak use as directed. Doxycycline 100 mg twice a day for 10 days Nebulizer therapy every 6 hours for the next couple days and continue O2 Crush on original products 04-12-2024 History of Present illness Narrative Patient verified by last name and date of . Images from the original note were not included. 04/12/2024 Kendra Buitrago (: 1960) is a 63 y.o. female , Established patient, here for evaluation of the following chief complaint(s): Sinus Problem (pain) and Cough (Chest feels tight ) ASSESSMENT/PLAN: 1. COPD with acute exacerbation (HCC) Assessment & Plan: Medrol Dosepak use as directed. Doxycycline 100 mg twice a day for 10 days Nebulizer therapy every 6 hours for the next couple days and continue O2 2. Chronic hypoxemic respiratory failure (HCC) Assessment & Plan: Stable, continue oxygen she currently is on 4 L 3. Primary hypertension Assessment & Plan: Blood pressure is initially elevated, recheck was still high follow-up in 1 week for blood pressure check, continue lisinopril hydrochlorothiazide 20-25 mg 4. Acute non-recurrent frontal sinusitis Assessment & Plan: Doxycycline 100 mg twice a day x 10 days Saline gel to use in her nares to prevent drying out due to the oxygen. Follow up if symptoms worsen or fail to improve. SUBJECTIVE/OBJECTIVE: HPI -Ember comes in today stating that she is having some increased chest tightness and wheezing, she is having pain over her frontal sinuses and congestion of her nose which makes it difficult to breathe and she does have a slight cough. Blood pressure is initially elevated today we will recheck prior to discharge. Review of Systems Constitutional: Negative for chills and fever. HENT: Positive for congestion. Negative for ear pain, rhinorrhea and sinus pressure. Respiratory: Positive for cough and shortness of breath. Cardiovascular: Negative for chest pain and palpitations. Vitals: 04/12/24 0905 04/12/24 0927 BP: (!) 158/72 (!) 151/71 Pulse: 92 87 Temp: 37.2 C (99 F) SpO2: (!) 86% 90% Weight: 193 lb 6.4 oz (87.7 kg) Height: 5' 7 (1.702 m) Physical Exam Vitals and nursing note reviewed. Constitutional: General: She is not in acute distress. Appearance: Normal appearance. HENT: Head: Normocephalic and atraumatic. Right Ear: Tympanic membrane, ear canal and external ear normal. Left Ear: Tympanic membrane, ear canal and external ear normal. Mouth/Throat: Mouth: Mucous membranes are moist. Pharynx: Oropharynx is clear. Eyes: Extraocular Movements: Extraocular movements intact. Pupils: Pupils are equal, round, and reactive to light. Cardiovascular: Rate and Rhythm: Normal rate and regular rhythm. Heart sounds: Normal heart sounds. No murmur heard. Pulmonary: Effort: Pulmonary effort is normal. Breath sounds: Examination of the right-upper field reveals wheezing. Examination of the left-upper field reveals wheezing. Examination of the right-middle field reveals wheezing. Wheezing present. Musculoskeletal: Cervical back: Neck supple. Lymphadenopathy: Cervical: No cervical adenopathy. Neurological: Mental Status: She is alert. An electronic signature was used to authenticate this note. Vu Mullins MD 04/12/2024 10:42 AM documented in this encounter [facility] 03-30-2024 Telephone encounter Note Reviewed chart. Refill appropriate. RX sent. [facility] 03-30-2024 Miscellaneous Notes Reviewed chart. Refill appropriate. RX sent. Prescription Request: Last medication check: 01/21/24 Last physical exam: 07/23/23 Next scheduled appointment: 08/08/24 Last date of refill on this medication 02/10/23 1 bottle 2 refills documented in this encounter [facility] 03-30-2024 Telephone encounter Note Prescription Request: Last medication check: 01/21/24 Last physical exam: 07/23/23 Next scheduled appointment: 08/08/24 Last date of refill on this medication 02/10/23 1 bottle 2 refills [facility] 03-17-2024 Evaluation + Plan note Associated Problem(s): Chronic pain of left knee Injection procedure: Location left knee Consent: Verbal Consent Obtained-Discussed risks including hypo/hyperpigmentation, fat atrophy, steroid flare, bleeding and infection and potential consequences of over use of steroids. Prep: Betadine. Anesthesia: 2% lidocaine. Medication: 1 ml depomedrol 40 mg. Needle: 25 gauge 1.5 in. needle. Complications: No Complications, Hemostasis achieved. [facility] 03-17-2024 Note Injection procedure: Location left knee Consent: Verbal Consent Obtained-Discussed risks including hypo/hyperpigmentation, fat atrophy, steroid flare, bleeding and infection and potential consequences of over use of steroids. Prep: Betadine. Anesthesia: 2% lidocaine. Medication: 1 ml depomedrol 40 mg. Needle: 25 gauge 1.5 in. needle. Complications: No Complications, Hemostasis achieved. [facility] 03-17-2024 Miscellaneous Notes Associated Problem(s): Chronic pain of left knee Injection procedure: Location left knee Consent: Verbal Consent Obtained-Discussed risks including hypo/hyperpigmentation, fat atrophy, steroid flare, bleeding and infection and potential consequences of over use of steroids. Prep: Betadine. Anesthesia: 2% lidocaine. Medication: 1 ml depomedrol 40 mg. Needle: 25 gauge 1.5 in. needle. Complications: No Complications, Hemostasis achieved. documented in this encounter [facility] 03-17-2024 History of Present illness Narrative Patient verified by last name and date of . Images from the original note were not included. 03/17/2024 Kendra Buitrago (: 1960) is a 63 y.o. female , Established patient, here for evaluation of the following chief complaint(s): Knee Pain (Left- asking for inj), Health Maintenance (Eye exam- not done in last year /Dental exam- not done in last year/Bone density- agree ), and Other (Pt is asking if she in now diabetic- she thought she was prediabetic ) ASSESSMENT/PLAN: 1. Chronic pain of left knee Assessment & Plan: Injection procedure: Location left knee Consent: Verbal Consent Obtained-Discussed risks including hypo/hyperpigmentation, fat atrophy, steroid flare, bleeding and infection and potential consequences of over use of steroids. Prep: Betadine. Anesthesia: 2% lidocaine. Medication: 1 ml depomedrol 40 mg. Needle: 25 gauge 1.5 in. needle. Complications: No Complications, Hemostasis achieved. Orders: - Large Joint Injection/Arthrocentesis - methylPREDNISolone acetate (DEPO-Medrol) injection 40 mg; 40 mg, Intra-artICUlar, Once, On Wed03/17/24 at 1100, For 1 dose - lidocaine (Xylocaine) 2 % injection 2 mL; 2 mL, Injection, Once, On Wed03/17/24 at 1100, For 1 dose 2. Menopause - DEXA bone density axial skeleton Follow up if symptoms worsen or fail to improve. SUBJECTIVE/OBJECTIVE: ABILIO Fraser comes in today for an injection in her left knee we have seen her for this in the past and she scheduled for an injection for today. Review of Systems Musculoskeletal: Positive for arthralgias. Negative for joint swelling. Vitals: 03/17/24 1026 BP: 131/70 Pulse: 83 SpO2: 95% Weight: 191 lb 3.2 oz (86.7 kg) Height: 5' 7 (1.702 m) Physical Exam Vitals and nursing note reviewed. Constitutional: Appearance: Normal appearance. Musculoskeletal: Comments: Left knee with normal range of motion some mild crepitus normal muscle strength and normal stability. No effusion. Neurological: Mental Status: She is alert. An electronic signature was used to authenticate this note. Vu Mullins MD 03/17/2024 10:56 AM documented in this encounter [facility] 03-09-2024 Evaluation + Plan note Associated Problem(s): Chronic pain of left knee X-ray to be obtained of her left knee, she is to start taking the meloxicam and stop taking ibuprofen. [facility] 03-09-2024 Evaluation + Plan note Associated Problem(s): Hypertension Controlled, continue lisinopril hydrochlorothiazide 20-25 [facility] 03-09-2024 Miscellaneous Notes Associated Problem(s): Chronic pain of left knee X-ray to be obtained of her left knee, she is to start taking the meloxicam and stop taking ibuprofen. Associated Problem(s): Hypertension Controlled, continue lisinopril hydrochlorothiazide 20-25 Associated Problem(s): COPD (chronic obstructive pulmonary disease) (HCC) Stable, continue Pulmicort twice a day and albuterol as needed either a puffer or nebulizer and DuoNeb if needed. And continue Trelegy Associated Problem(s): Chronic hypoxemic respiratory failure (HCC) Stable, continue oxygen at current settings. documented in this encounter [facility] 03-09-2024 Evaluation + Plan note Associated Problem(s): COPD (chronic obstructive pulmonary disease) (HCC) Stable, continue Pulmicort twice a day and albuterol as needed either a puffer or nebulizer and DuoNeb if needed. And continue Trelegy [facility] 03-09-2024 Evaluation + Plan note Associated Problem(s): Chronic hypoxemic respiratory failure (HCC) Stable, continue oxygen at current settings. [facility] 03-09-2024 History of Present illness Narrative Patient verified by last name and date of . Images from the original note were not included. 03/09/2024 Kendra Buitrago (: 1960) is a 63 y.o. female , Established patient, here for evaluation of the following chief complaint(s): Knee Pain (Left - feels like it wants to go out ), Referral (To chiropractor ), Back Pain (Back feeling better ), Health Maintenance (Flu vaccine- refuse), and Medication Problem (Pt needs clarification on what and when she needs to use for her nebulizer -she has 3 medications and does not know when she needs to use them ) ASSESSMENT/PLAN: 1. Chronic obstructive pulmonary disease, unspecified COPD type (HCC) Assessment & Plan: Stable, continue Pulmicort twice a day and albuterol as needed either a puffer or nebulizer and DuoNeb if needed. And continue Trelegy 2. Refused influenza vaccine 3. Chronic hypoxemic respiratory failure (HCC) Assessment & Plan: Stable, continue oxygen at current settings. 4. Primary hypertension Assessment & Plan: Controlled, continue lisinopril hydrochlorothiazide 20-25 5. Chronic pain of left knee Assessment & Plan: X-ray to be obtained of her left knee, she is to start taking the meloxicam and stop taking ibuprofen. Orders: - XR knee 4+ views left Follow up if symptoms worsen or fail to improve. SUBJECTIVE/OBJECTIVE: ABILIO Fraser was scheduled to come in today for back pain but she says that is pretty well resolved now she is complaining of some pain in her left knee, she says at times the knee feels like it is going to give out on her. Also here for follow-up on her COPD which seems to be stable at this time she continues to use her oxygen on a continual basis and her inhalers and her blood pressure was very good today. Review of Systems Constitutional: Negative for chills and fever. HENT: Negative for ear pain, rhinorrhea and sinus pressure. Respiratory: Negative for shortness of breath. Cardiovascular: Negative for chest pain and palpitations. Musculoskeletal: Positive for arthralgias and gait problem. Negative for joint swelling. Vitals: 03/09/24 0942 BP: 118/68 Pulse: 91 SpO2: 93% Weight: 192 lb 6.4 oz (87.3 kg) Height: 5' 7 (1.702 m) Physical Exam Vitals and nursing note reviewed. Constitutional: General: She is not in acute distress. Appearance: Normal appearance. HENT: Head: Normocephalic and atraumatic. Mouth/Throat: Mouth: Mucous membranes are moist. Pharynx: Oropharynx is clear. Eyes: Extraocular Movements: Extraocular movements intact. Pupils: Pupils are equal, round, and reactive to light. Cardiovascular: Rate and Rhythm: Normal rate and regular rhythm. Heart sounds: Normal heart sounds. No murmur heard. Pulmonary: Effort: Pulmonary effort is normal. Breath sounds: Normal breath sounds. Musculoskeletal: Cervical back: Neck supple. Lymphadenopathy: Cervical: No cervical adenopathy. Neurological: Mental Status: She is alert. An electronic signature was used to authenticate this note. Vu Mullins MD 03/09/2024 2:08 PM documented in this encounter [facility] 02-17-2024 Telephone encounter Note Prescription Request: Last medication check: 01/21/24 Last physical exam: 07/23/23 Next scheduled appointment: 08/04/24 Last date of refill on this medication 01/21/24 [facility] 02-17-2024 Miscellaneous Notes Prescription Request: Last medication check: 01/21/24 Last physical exam: 07/23/23 Next scheduled appointment: 08/04/24 Last date of refill on this medication 01/21/24 documented in this encounter [facility] 01-21-2024 Evaluation + Plan note Associated Problem(s): Primary osteoarthritis involving multiple joints Aleve is not working at this time we will send in meloxicam 15 mg daily [facility] 01-21-2024 Miscellaneous Notes Associated Problem(s): Primary osteoarthritis involving multiple joints Aleve is not working at this time we will send in meloxicam 15 mg daily Associated Problem(s): Moderate episode of recurrent major depressive disorder (HCC) Remission, continue sertraline 100 mg daily Associated Problem(s): Hypertriglyceridemia Controlled, continue low-fat low-carb diet Associated Problem(s): Anxiety Remission, continue sertraline 100 mg daily Associated Problem(s): Type 2 diabetes mellitus without complication, without long-term current use of insulin ([facility]/HCC) (HCC) Controlled, current A1c today is 6.4, continue strict low-carb diet Associated Problem(s): Hypertension Controlled, continue lisinopril hydrochlorothiazide 20-25 mg Associated Problem(s): COPD (chronic obstructive pulmonary disease) ([facility]) Currently stable saturation is good and no wheezing continue Trelegy, albuterol and Daliresp documented in this encounter [facility] 01-21-2024 Evaluation + Plan note Associated Problem(s): Moderate episode of recurrent major depressive disorder (HCC) Remission, continue sertraline 100 mg daily [facility] 01-21-2024 Evaluation + Plan note Associated Problem(s): Hypertriglyceridemia Controlled, continue low-fat low-carb diet [facility] 01-21-2024 Evaluation + Plan note Associated Problem(s): Anxiety Remission, continue sertraline 100 mg daily [facility] 01-21-2024 Evaluation + Plan note Associated Problem(s): Type 2 diabetes mellitus without complication, without long-term current use of insulin ([facility]/HCC) (HCC) Controlled, current A1c today is 6.4, continue strict low-carb diet [facility] 01-21-2024 Evaluation + Plan note Associated Problem(s): Hypertension Controlled, continue lisinopril hydrochlorothiazide 20-25 mg T [facility] 01-21-2024 Evaluation + Plan note Associated Problem(s): COPD (chronic obstructive pulmonary disease) ([facility]) Currently stable saturation is good and no wheezing continue Trelegy, albuterol and Daliresp T [facility] 01-21-2024 History of Present illness Narrative Patient verified by last name and date of . Images from the original note were not included. 01/21/2024 Kendra Buitrago (: 1960) is a 63 y.o. female , Established patient, here for evaluation of the following chief complaint(s): COPD, Hypertension, Hyperlipidemia, Diabetes, Anxiety, Depression, Medication Check (6 month), and Health Maintenance (Dexa scan- agree/Rsv vaccine- not done/Pcv 20 vaccine- refuse/Mammogram- already has order /3rd covid vaccine- not done/Eye exam- not done pt will sched /Hep b or a vaccines- pt refuse/Shingles vaccine- refuse) ASSESSMENT/PLAN: 1. Chronic obstructive pulmonary disease, unspecified COPD type ([facility]) Assessment & Plan: Currently stable saturation is good and no wheezing continue Trelegy, albuterol and Daliresp Orders: - albuterol 108 (90 Base) MCG/ACT inhaler; inhale 2 puff by mouth and INTO THE LUNGS every 4 hours if needed, Normal 2. Primary hypertension Assessment & Plan: Controlled, continue lisinopril hydrochlorothiazide 20-25 mg 3. Moderate episode of recurrent major depressive disorder (HCC) Assessment & Plan: Remission, continue sertraline 100 mg daily 4. Type 2 diabetes mellitus without complication, without long-term current use of insulin ([facility]/HCC) (HCC) Assessment & Plan: Controlled, current A1c today is 6.4, continue strict low-carb diet Orders: - AMB POC HEMOGLOBIN A1C 5. Anxiety Assessment & Plan: Remission, continue sertraline 100 mg daily 6. Hypertriglyceridemia Assessment & Plan: Controlled, continue low-fat low-carb diet 7. Primary osteoarthritis involving multiple joints Assessment & Plan: Michael is not working at this time we will send in meloxicam 15 mg daily Follow up in about 6 months (around 07/23/2024). SUBJECTIVE/OBJECTIVE: ABILIO Pa comes in today for 6-month follow-up on her COPD, hypertension which is controlled, depression which is in remission, diabetes, anxiety and hypertriglyceridemia. She says she is actually doing very well her breathing is doing excellent on her current regimen of Trelegy, Daliresp and albuterol. She did not bring any blood sugar numbers. Her anxiety and depression are currently in remission. Review of Systems Constitutional: Negative for chills and fever. Respiratory: Negative for shortness of breath. Cardiovascular: Negative for chest pain and palpitations. Gastrointestinal: Negative for abdominal pain, blood in stool, constipation and diarrhea. Genitourinary: Negative for dysuria, frequency, hematuria and urgency. Neurological: Negative for weakness and numbness. Psychiatric/Behavioral: Negative for dysphoric mood. The patient is not nervous/anxious. Vitals: 01/21/24 0818 BP: 120/72 Pulse: 90 SpO2: 94% Weight: 189 lb 6.4 oz (85.9 kg) Height: 5' 7 (1.702 m) Physical Exam Vitals and nursing note reviewed. Constitutional: General: She is not in acute distress. Appearance: Normal appearance. HENT: Head: Normocephalic. Right Ear: Tympanic membrane, ear canal and external ear normal. Left Ear: Tympanic membrane, ear canal and external ear normal. Mouth/Throat: Mouth: Mucous membranes are moist. Pharynx: Oropharynx is clear. Eyes: Extraocular Movements: Extraocular movements intact. Pupils: Pupils are equal, round, and reactive to light. Neck: Thyroid: No thyromegaly. Vascular: No carotid bruit. Cardiovascular: Rate and Rhythm: Normal rate and regular rhythm. Heart sounds: Normal heart sounds. No murmur heard. Pulmonary: Effort: Pulmonary effort is normal. Breath sounds: Normal breath sounds. Abdominal: General: Bowel sounds are normal. Palpations: Abdomen is soft. Musculoskeletal: General: Normal range of motion. Cervical back: Normal range of motion. Lymphadenopathy: Cervical: No cervical adenopathy. Skin: General: Skin is warm and dry. Neurological: General: No focal deficit present. Mental Status: She is alert and oriented to person, place, and time. Psychiatric: Mood and Affect: Mood normal. An electronic signature was used to authenticate this note. Vu Mullins MD 01/21/2024 9:09 AM documented in this encounter [facility] 11-25-2023 Evaluation + Plan note Associated Problem(s): Subcutaneous nodule of right forearm Will start her on a Medrol Dosepak use as directed. We will have her get a x-ray of her forearm to assess for foreign bodies [facility] 11-25-2023 Miscellaneous Notes Associated Problem(s): Subcutaneous nodule of right forearm Will start her on a Medrol Dosepak use as directed. We will have her get a x-ray of her forearm to assess for foreign bodies documented in this encounter [facility] 11-25-2023 History of Present illness Narrative Patient verified by last name and date of . Images from the original note were not included. 11/25/2023 Kendra Buitrago (: 1960) is a 63 y.o. female , Established patient, here for evaluation of the following chief complaint(s): Joint Swelling (Right Wrist- red and swollen/Yesterday woke up with little bump and now today is red and swollen) ASSESSMENT/PLAN: 1. Subcutaneous nodule of right forearm Assessment & Plan: Will start her on a Medrol Dosepak use as directed. We will have her get a x-ray of her forearm to assess for foreign bodies Orders: - XR forearm 2 views right Follow up if symptoms worsen or fail to improve. SUBJECTIVE/OBJECTIVE: ABILIO Pa comes in today complaining that her right wrist is swollen and tender to touch. She said yesterday she woke up there was some swelling and little tenderness today she woke up it was much worse she was wondering if maybe she had had a bug bite or something. Review of Systems Skin: Positive for rash. Negative for wound. Vitals: 11/25/23 1112 11/25/23 1135 BP: (!) 142/80 97/72 Pulse: 95 97 SpO2: 90% 93% Weight: 187 lb 12.8 oz (85.2 kg) Height: 5' 7 (1.702 m) Physical Exam Vitals and nursing note reviewed. Constitutional: General: She is not in acute distress. Appearance: Normal appearance. Musculoskeletal: Comments: Right forearm just proximal to the wrist over the ulnar aspect has a 1-1/2 subcutaneous nodule that is tender to touch, no warmth and minimal redness. No obvious wound. Neurological: Mental Status: She is alert. An electronic signature was used to authenticate this note. Vu Mullins MD 11/25/2023 12:21 PM documented in this encounter [facility] 11-19-2023 Evaluation + Plan note Associated Problem(s): Hypertension Controlled, continue lisinopril hydrochlorothiazide 20-25 mg [facility] 11-19-2023 Miscellaneous Notes Associated Problem(s): Hypertension Controlled, continue lisinopril hydrochlorothiazide 20-25 mg Associated Problem(s): COPD (chronic obstructive pulmonary disease) (HCC) Stable, continue current inhalers Trelegy albuterol and solution for nebulizer and Daliresp Associated Problem(s): Chronic hypoxemic respiratory failure (HCC) Improved, currently on ambulatory O2 with improved sats documented in this encounter [facility] 11-19-2023 Evaluation + Plan note Associated Problem(s): COPD (chronic obstructive pulmonary disease) (HCC) Stable, continue current inhalers Trelegy albuterol and solution for nebulizer and Daliresp [facility] 11-19-2023 Evaluation + Plan note Associated Problem(s): Chronic hypoxemic respiratory failure (HCC) Improved, currently on ambulatory O2 with improved sats [facility] 11-19-2023 History of Present illness Narrative Patient verified by last name and date of . Images from the original note were not included. 11/19/2023 Kendra Buitrago (: 1960) is a 63 y.o. female , Established patient, here for evaluation of the following chief complaint(s): Transitional Care Management Outreach, Hospital Follow-up ([facility] 10/30-11/10/23/), and Hypertension (Pt restarted bp meds that she was taking before going into the hospital- she will bring them with her ) ASSESSMENT/PLAN: 1. Chronic obstructive pulmonary disease, unspecified COPD type (HCC) Assessment & Plan: Stable, continue current inhalers Trelegy albuterol and solution for nebulizer and Daliresp 2. Chronic hypoxemic respiratory failure (HCC) Assessment & Plan: Improved, currently on ambulatory O2 with improved sats 3. Primary hypertension Assessment & Plan: Controlled, continue lisinopril hydrochlorothiazide 20-25 mg Follow up in about 6 months (around 05/20/2024). SUBJECTIVE/OBJECTIVE: ABIILO Fraser comes in today for follow-up on her hospital admission she was released a week ago last Wednesday. When she went in she said that they told her her upper lungs were not working right and they put her on high flow oxygen and that seemed to get them opened up and she also was found to have an oxygen concentrator that was not working well so they got her a new 1 and she is doing much better her oxygen saturation today are 90 but when she is at home sitting around not doing anything her oxygen saturations will be in the mid to upper 90s. She has finished all steroids and any antibiotics that she was on and she says she has not felt this good in a long time. Review of Systems Constitutional: Negative for chills and fever. HENT: Negative for ear pain, rhinorrhea and sinus pressure. Respiratory: Negative for shortness of breath. Cardiovascular: Negative for chest pain and palpitations. Vitals: 11/19/23 0935 BP: 136/80 Pulse: 90 SpO2: 90% Weight: 186 lb 6.4 oz (84.6 kg) Height: 5' 7 (1.702 m) Physical Exam Vitals and nursing note reviewed. Constitutional: General: She is not in acute distress. Appearance: Normal appearance. HENT: Head: Normocephalic and atraumatic. Right Ear: Tympanic membrane, ear canal and external ear normal. Left Ear: Tympanic membrane, ear canal and external ear normal. Mouth/Throat: Mouth: Mucous membranes are moist. Pharynx: Oropharynx is clear. Eyes: Extraocular Movements: Extraocular movements intact. Pupils: Pupils are equal, round, and reactive to light. Cardiovascular: Rate and Rhythm: Normal rate and regular rhythm. Heart sounds: Normal heart sounds. No murmur heard. Pulmonary: Effort: Pulmonary effort is normal. Breath sounds: Normal breath sounds. Musculoskeletal: Cervical back: Neck supple. Lymphadenopathy: Cervical: No cervical adenopathy. Neurological: Mental Status: She is alert. An electronic signature was used to authenticate this note. Vu Mullins MD 11/19/2023 10:25 AM documented in this encounter [facility] 11-10-2023 Miscellaneous Notes Patient Choice Patient Name: KENDRA BUITRAGO Date of : 1960 Images from the original note were not included. Care Management Progress Note Patient with discharge order placed. Patient is set up with home care, no other needs. Does not need transportation help. Discharge Milestones and Delays Expected Date/Time: 11/10/2023 Disposition: Home or Self Care Transport status: No current request Discharge Milestones Completed Place discharge order Complete med reconciliation Case mgmt discharge readiness Expected Discharge History Expected Date/Time Set By Reviewed At 11/10/2023 Gray Morocho DO 11/10/2023 12:34 PM TCC estimate 11/04- Home with home care. Trying to wean her oxygen down. LTAC referral, will need auth [facility] when stable. 11/10/2023 Robyn Jaimes RN 11/10/2023 11:01 AM 11/11/2023 Robyn Jaimes RN 11/10/2023 7:24 AM 11/10/2023 VIOLETA Álvarez 11/09/2023 9:40 AM 11/10/2023 Robyn Jaimes RN 11/08/2023 7:21 AM TCC estimate 11/04- Home with home care. Trying to wean her oxygen down. LTAC referral, will need auth 11/07/2023 MONICA ÁlvarezW 11/05/2023 9:23 AM TCC estimate 11/04- Home with home care. Trying to wean her oxygen down. 11/07/2023 Robyn Jaimes RN 11/05/2023 7:56 AM TCC estimate 11/05/2023 Robyn Jaimes RN 11/04/2023 7:29 AM 11/05/2023 Cachorro Small RN 11/03/2023 8:45 AM 11/05/2023 Cachorro Small RN 11/02/2023 9:09 AM 11/02/2023 Kwan Harry MD 10/31/2023 7:22 PM 11/02/2023 Kwan Harry MD 10/31/2023 4:46 PM Length of Stay (Days): 10 GMLOS: 3.6 [facility] notified of discharge home today. Images from the original note were not included. Care Management Progress Note TRANSITIONAL CARE DAILY NOTE/UPDATES: Patient remains on 2E due to respiratory failure. Clinical updates: patient back on baseline O2 at 4L. Pulmonology following. Discharge plan: [facility] is [facility], message sent to Dr. Morocho, patient back on baseline O2, feeling better, will discharge to home with home care, [facility] no longer needed, so P2P does not need to be done. Discharge obstacles: none noted. TCC to continue to follow. Discharge Milestones and Delays Expected Date/Time: 11/10/[address] discharge order Complete med reconciliation Case mgmt discharge readiness Clinical Stability Diagnsotic Workup Expected Discharge History Expected Date/Time Set By Reviewed At 11/10/2023 Robyn Jaimes RN 11/10/2023 11:01 AM TCC estimate 11/04- Home with home care. Trying to wean her oxygen down. LTAC referral, will need auth [facility] when stable. 11/11/2023 Robyn Jaimes RN 11/10/2023 7:24 AM 11/10/2023 VIOLETA Álvarez 11/09/2023 9:40 AM 11/10/2023 Robyn Jaimes RN 11/08/2023 7:21 AM TCC estimate 11/04- Home with home care. Trying to wean her oxygen down. LTAC referral, will need auth 11/07/2023 VIOLETA Álvarez 11/05/2023 9:23 AM TCC estimate 11/04- Home with home care. Trying to wean her oxygen down. 11/07/2023 Robyn Jaimes RN 11/05/2023 7:56 AM TCC estimate 11/05/2023 Robyn Jaimes RN 11/04/2023 7:29 AM 11/05/2023 Cachorro Small RN 11/03/2023 8:45 AM 11/05/2023 Cachorro Small RN 11/02/2023 9:09 AM 11/02/2023 Kwan Harry MD 10/31/2023 7:22 PM 11/02/2023 Kwan Harry MD 10/31/2023 4:46 PM Length of Stay (Days): 10 GMLOS: 3.6 Patient remains on 2E for Acute/chronic hypoxic hypercapnic resp failure, continued on 5L O2 HFNC, weaning as tolerated. BIPAP HS. Pulmonary following. ATBX therapy complete for H influenza. Prednisone PO continued through 11/11. Continue to monitor OP 13mm LISA nodule. Smoking cessation needed. Possible need for [facility] due to oxygen needs. Spoke to Nicolle from [place] this am, still pending authorization. Therapy to update PT note, last documented on 11/05. If able to wean, plan for home with HHC. Will follow for DME needs FWW vs Rollator. Problem: Knowledge Deficit Goal: Patient/family/caregiver demonstrates understanding of disease process, treatment plan, medications, and discharge instructions Outcome: Progressing Problem: Problem Interventions Goal: Assess Nutritional Intake Outcome: Progressing Goal: Promote nutritional intake Outcome: Progressing Problem: Knowledge Deficit Goal: Patient/family/caregiver demonstrates understanding of disease process, treatment plan, medications, and discharge instructions Outcome: Progressing Problem: Problem Interventions Goal: Assess Nutritional Intake Outcome: Progressing Problem: Problem Interventions Goal: Promote nutritional intake Outcome: Progressing The patient is Moderately Stable - Low risk of patient condition declining or worsening The patient's goals for the shift include Get rid of this CO2 The clinical goals for the shift include Stable breathing Images from the original note were not included. Care Management Progress Note TRANSITIONAL CARE DAILY NOTE/UPDATES: Patient remains on 2E due to respiratory failure. Clinical updates: patient remains on 7L O2, baseline is 4L. On IV antibiotics. On scheduled duo-neb treatments. WBC elevated and BUN elevated. Pulmonology following. Discharge plan:[facility] if approved. Insurance auth started 11/07. Discharge obstacles: none noted. TCC to continue to follow. Discharge Milestones and Delays Expected Date/Time: 11/10/[address] discharge order Complete med reconciliation Case mgmt discharge readiness Clinical Stability Diagnsotic Workup Expected Discharge History Expected Date/Time Set By Reviewed At 11/10/2023 Robyn Jaimes RN 11/08/2023 7:21 AM TCC estimate 11/04- Home with home care. Trying to wean her oxygen down. LTAC referral, will need auth 11/07/2023 VIOLETA Álvarez 11/05/2023 9:23 AM TCC estimate 11/04- Home with home care. Trying to wean her oxygen down. 11/07/2023 Robyn Jaimes RN 11/05/2023 7:56 AM TCC estimate 11/05/2023 Robyn Jaimes RN 11/04/2023 7:29 AM 11/05/2023 Cachorro Small RN 11/03/2023 8:45 AM 11/05/2023 Cachorro Small RN 11/02/2023 9:09 AM 11/02/2023 Kwan Harry MD 10/31/2023 7:22 PM 11/02/2023 Kwan Harry MD 10/31/2023 4:46 PM Length of Stay (Days): 8 GMLOS: 3.6 Images from the original note were not included. Care Management Progress Note Patient remains on 2E due to respiratory failure. Clinical updates: patient now on 7L O2, on IV antibiotics, scheduled duo-neb treatments. Pulmonology following. Discharge plan: pulmonology INDUSTRIAL RELATIONS WORKER asked if patient could be evaluated for LTAC, as they feel patient needs this level of care. Spoke with Nicolle, [facility] liaison, she will look into patient. Discharge obstacles: none noted. TCC to continue to follow. Discharge Milestones and Delays Expected Date/Time: 11/07/[address] discharge order Complete med reconciliation Case mgmt discharge readiness Clinical Stability Diagnsotic Workup Expected Discharge History Expected Date/Time Set By Reviewed At 11/07/2023 VIOLETA Álvarez 11/05/2023 9:23 AM TCC estimate 11/04- Home with home care. Trying to wean her oxygen down. 11/07/2023 Robyn Jaimes RN 11/05/2023 7:56 AM TCC estimate 11/05/2023 Robyn Jaimes RN 11/04/2023 7:29 AM 11/05/2023 Cachorro Small RN 11/03/2023 8:45 AM 11/05/2023 Cachorro Small RN 11/02/2023 9:09 AM 11/02/2023 Kwan Harry MD 10/31/2023 7:22 PM 11/02/2023 Kwan Harry MD 10/31/2023 4:46 PM Length of Stay (Days): 5 GMLOS: 3.6 Pulmonary team recommending LTAC evaluation given increased O2 requirements. pCO2 remains elevated despite use of BiPAP last night. Dr. Snell recommending NIV for at home as well. Talked with Lela from [employer] today. [employer] insurance will require patient to wear BiPAP for 3 months prior to approving NIV. Orders have been signed for BiPAP to use at home. LTAC was discussed with patient today at bedside. Informed her we would reach out to case worker and [facility] liaison to see if she would qualify. I updated Robyn Jaimes RN case manager today . Images from the original note were not included. Care Management Progress Note TRANSITIONAL CARE DAILY NOTE/UPDATES: Patient remains on 2E due to respiratory failure. Clinical updates: patient transferred out of ICU. On 10L hiflo O2. Patient on IV fluids, IV steroids, scheduled duo-neb treatments. Pulmonology following. Discharge plan: home when medically stable. Home care is following. Discharge obstacles: none noted. TCC to continue to follow. Discharge Milestones and Delays Expected Date/Time: 11/05/[address] discharge order Complete med reconciliation Case mgmt discharge readiness Clinical Stability Diagnsotic Workup Expected Discharge History Expected Date/Time Set By Reviewed At 11/05/2023 Robyn Jaimes RN 11/04/2023 7:29 AM TCC estimate 11/05/2023 Cachorro Small RN 11/03/2023 8:45 AM 11/05/2023 Cachorro Small RN 11/02/2023 9:09 AM 11/02/2023 Kwan Harry MD 10/31/2023 7:22 PM 11/02/2023 Kwan Harry MD 10/31/2023 4:46 PM Length of Stay (Days): 4 GMLOS: 3.6 Pt declined FWW and Rollator at this time. Pt informed if she changes her mind prior to discharge, to let nurse know and this can be ordered prior to discharge. Pt also made aware home care therapy can assess for device needs in home. Pt verbalized understanding. Start PACC Note Home Health Referral Educated patient on Home Care and services available. Patient offered choice of available HHC and agreeable to SN, PT services with [facility]. Care Types: None Isolation Precautions: Droplet Social Determinates of Health: Tobacco Use: High Risk (10/31/2023) Patient History Smoking Tobacco Use: Every Day Smokeless Tobacco Use: Never Passive Exposure: Not on file Social History Substance and Sexual Activity Alcohol Use No Alcohol/week: 0.0 standard drinks of alcohol Social History Substance and Sexual Activity Drug Use No Does the patient have any financial resource strain? No Does the patient have any food insecurities? No Does the patient have any housing instabilities? No If any of the above is noted as yes - consider a READING COACH evaluation once the patient returns home. START PATIENT REGISTRATION INFORMATION Order Information Order Signing Physician: Leti Quach MD Service Ordered RN ?: Yes Service Ordered PT ?: Yes Service Ordered OT ?: No Service Ordered ST ?: No Service Ordered READING COACH?:No Service Ordered HYDRAULIC PILE HAMMER OPERATOR?: No Following Physician: Vu Mullins MD Following Physician Overseeing Physician: Vu Mullins MD (Required for Residents only) Agreeable to Follow? Yes Date/Time of Call 11/03/23 3:38 PM, Spoke with: message Care Coordination Same Day SOC?: No Primary Care Physician: Vu Mullins MD Primary Care Physician Primary Care Physician Address: [address] [place] [id number] Visit Instructions: N/A Service Discharge Location Type: Home with Home Health Care Service Facility Name: N/A Service Floor Facility: N/A Service Room No: N/A Demographics Patient Last Name: Buitrago Patient First Name: Kendra Language/Communication Barrier: N/A Service Address: [address] [facility] Service City: [facility] ST: [place] Service ZIP: [address] Service (home) Other phone numbers: Telephone Information: Emergency Contact: Extended Emergency Contact Information Primary Emergency Contact: Chidi Buitrago Relation: Spouse Admission Information Admit Date: 10/31/2023 Patient status at discharge: Inpatient Admitting Diagnosis: Respiratory failure (HCC) [J96.90] Caregiver Information Caregiver First Name: Chidi Caregiver Last Name: Iftikhar Caregiver Relationship to Patient spouse Caregiver Caregiver Notes: N/A [employer] List No END PATIENT REGISTRATION INFORMATION Pt Home Health goal home COVID Status 1. Do you have any upper respiratory symptoms (cough, SOB, Fever)? No 2. Have you been exposed to anyone with COVID-19 Virus? No Answer only if pending or positive for COVID-19? 1. Agreeable to wear PPE at each visit? No 2. Is the hospital supplying them with PPE upon Discharge? No Start PACC Summary General Report/ Additional Comments 63 yo F PMH chronic respiratory failure on 4LNC baseline, COPD/emphysema, HTN, tobacco abuse who presented with shortness of breath and syncope. Noted to have change in sputum (usually clear now green) and started on steroids and antibiotics for AECOPD. Started on NIV and transitioned to HFNC during the day. Discharge Date: pending Referral Source-PACC: (Hospital/Unit): [facility] / [phone] A End PACC Note Care Managment Initial Assessment Date: 11/03/2023 Patient Name: Kendra Buitrago : 1960 Patient Information Source of Information: Patient Cognition/Language: WFL - Within Functional Limits Permission given to speak with patient business office representative/caregiver as indicated: Confirmation of Payer with patient/family: Yes Payer Name: [facility] MED[facility] MEDIC[facility] ADVANTAGE : No Confirmation of Primary Care Physician: Confirmed PCP Name: Vu Mullins MD Seen in last 2 years?: Yes Primary Caregiver: Self If assistance needed, confirmed caregiver ready, willing and able to care for patient at discharge: Confirmed with: Living Arrangements Current Residence: House Number of Floors 2 Number of Entry Steps: 2 Bed/Bath Levels: Both first floor Facility: Facility Name: Plan to Return: Lives with: Spouse/significant other Support Systems: Spouse/significant other, Family members Activities of Daily Living Ambulation: Independent Bathing/Dressing: Independent Elimination/Continence/Toileting: Independent Feeding: Independent Who Assists with Activities of Daily Living: Instrumental Activities of Daily Living Prescription Coverage: Yes Pharmacy Used: [facility] Medication Management: Independent Transportation/Shopping: Independent Transportation Mode: Car Needs Assistance with Transportation at Discharge: No Meal Preparation: Independent Laundry/Cleaning: Independent Finances/Bill Paying: Independent Communication: Independent Types of Care Services/Equipment Utilized Care Services: Dialysis Type: NA Durable Medical Equipment: Oxygen (Continuous or prn) Oxygen Flow Rate: 3-4L cont DME Provider: Ronaldo Patient's Goal/Discharge Plan Patient expects to be discharged to: Home Discharge Planning Actions: Continue to follow Patient's Choice Rights and [employer] and Collaborative Relationships Disclosed as Indicated for Post-Acute Care: Interdisciplinary Team Engagement: Home Health Care Social Work Referral for: Additional Information: Met with pt at bedside. Introduced self and role. Pt lives at home with and is independent. Uses home O2 3-4L. Family assists when needed. Pt wants to go home with HHC. DCP TBD based on O2 requirements. TCC to follow. Cachorro Small RN Accepted transfer , with acute resp failure, and COPD< pulm to follow ICU Transfer Checklist Transfer Med Reconciliation (resume home meds if able, convert to PO if able) Complete Antibiotics (name, indication, duration, convert to PO if able) Yes, addressed in today's progress note Steroid (indication, duration, convert to PO if able) Yes, addressed in today's progress note Anticipated [place] Medications (ICU initiated) or Dose Changes and Indication No Permanently Discontinued Home Medications and Reason for medication contraindication No Jamil Catheter (please remove if able. Note: place DC order) No Central Line (please remove if able. Note: place DC order) No Transfer Discussed with: Dr. Quach - [facility] [place] If additional questions for ICU team within 24 hours of ICU transfer, page [phone] for clarifications. Sand Technician following case for Discharge Needs. Chart reviewed. Attempted to call Chidi spouse and left message to return call for [place]. Pt in ICU. Adm for resp failure. On Heated HFNC 50%. Attempt to wean as tolerated. Remains on Abx, IV steroids and Duonebs. Awaiting clinical improvement and recommendations. Pt Hx COPD on 4L NC at baseline. TCC to follow for needs. documented in this encounter [facility] 11-10-2023 Hospital Discharge instructions Deb Johnston RN - 11/10/2023 12:43 PM EDT As tolerated. Deb Johnston RN - 11/10/2023 12:43 PM EDT Healthy diet. Robyn Sun RN - 11/03/2023 3:42 PM EDT Continuity of Care Form Patient Name: Kendra Buitrago : 1960 Admit date: 10/31/2023 Discharge date: Code Status Order: Full Code Advance Directives: N Admitting Physician: Matt Rivas MD PCP: Vu Mullins MD Discharging Nurse: Discharging Hospital Unit/Room#: [id number] A Discharging Unit Phone Number: Emergency Contact: Extended Emergency Contact Information Primary Emergency Contact: Chidi Buitrago Relation: Spouse Past Surgical History: Past Surgical History: Procedure Laterality Date APPENDECTOMY CATARACT EXTRACTION W/ INTRAOCULAR LENS IMPLANT Left 04/17/2019, 02/2022 CATARACT EXTRACTION W/ INTRAOCULAR LENS IMPLANT Right 04/03/2019, 02/2022 dr garnica COLONOSCOPY 2016 LUNG SURGERY Right 09/2021 went in and cleaned out TONSILLECTOMY (HISTORICAL) Immunization History: Immunization History Administered Date(s) Administered Influenza, injectable, quadrivalent 03/10/2019 Influenza, injectable, quadrivalent, preservative free 05/13/2018 Influenza, seasonal, injectable 05/13/2018 Moderna SARS-CoV-2 Vaccination 09/04/2020, 10/02/2020 Pneumococcal Polysaccharide PPSV23 11/25/2018 Tdap 07/20/2016 Active Problems: Medical Problems Problem List * (Principal) Respiratory failure (HCC) COPD (chronic obstructive pulmonary disease) (HCC) Episode of recurrent major depressive disorder (HCC) Chronic hypoxemic respiratory failure (HCC) Hepatic cyst Type 2 diabetes mellitus without complication, without long-term current use of insulin (CMS/HCC) (HCC) Overview Signed 07/28/2022 1:06 PM by Marilee Murray APRN - [facility] Hemoglobin A1c 6.6 (07/24/2022) COPD exacerbation (HCC) Swelling of left foot Dependent edema History of tobacco abuse Overview Signed 03/21/2022 9:26 PM by Erik Salamanca Problems- [employer] Conversion Quit in 2019 Anxiety Posterior capsular opacification visually significant, left eye Hypertriglyceridemia COPD with acute exacerbation (HCC) Hypertension Isolation/Infection: Droplet Respiratory Infectious Disease Nurse Assessment: Last Vital Signs: BP 143/70 Pulse 85 Temp 36.7 C (98.1 F) (Oral) Resp 25 Ht 1.702 m (5' 7) Wt 90.6 kg (199 lb 11.8 oz) SpO2 94% BMI 31.28 kg/m Last documented pain score (0-10 scale): Last Weight: Wt Readings from Last 1 Encounters: 11/03/23 90.6 kg (199 lb 11.8 oz) Mental Status: {GARY Patient Mental Status:51189} IV Access: {GARY IV Access:09193} Nursing Mobility/ADLs: Walking {WILL ADL:68032::Independent} Transfer {WILL ADL:44140::Independent} Bathing {WILL ADL:35918::Independent} Dressing {WILL ADL:28346::Independent} Toileting {WILL ADL:54712::Independent} Feeding {WILL ADL:10882::Independent} Maintenance Technician {WILL ADL:84819::Independent} Med Delivery {yes/no:78111} Wound Care Documentation and Therapy: Elimination: Continence: Bowel: {yes/no:95827} Bladder: {yes/no:} Urinary Catheter: {GARY Urinary Catheter:93991} Colostomy/Ileostomy/Ileal Conduit: {YES / NO:} Date of Last BM: Intake/Output Summary (Last 24 hours) at 11/03/2023 1542 Last data filed at 11/03/2023 0345 Gross per 24 hour Intake 840 ml Output -- Net 840 ml I/O last 3 completed shifts: In: 1280 (14.1 mL/kg) [P.O.:1280] Out: 0 (0 mL/kg) Weight: 90.6 kg Safety Concerns: {GARY Safety Concerns:45638} Impairments/Disabilities: {GARY Impairments/Disabilities:99407} Nutrition Therapy: Current Nutrition Therapy: {GARY Diet List:85750} Routes of Feeding: {routes of feedin} Liquids: {liquid consistency:48688} Daily Fluid Restriction: {daily fluid restriction:67393} Last Modified Barium Swallow with Video (Video Swallowing Test): {done not done:34215} Treatments at the Time of Hospital Discharge: Respiratory Treatments: Oxygen Therapy: {Therapy; copd oxygen:48125} Ventilator: {GARY Ventilator:86662} Rehab Therapies: {GEN THERAPY DISCIPLINE SCAL:4255824} Weight Bearing Status/Restrictions: {POD WEIGHT BEARIN} Other Medical Equipment (for information only, NOT a DME order): {Assistive Devices DME:66066} Other Treatments: Patient's personal belongings (please select all that are sent with patient): {GARY Patient Belongings:74823} RN SIGNATURE: {E-signature:20780} CASE MANAGEMENT/SOCIAL WORK SECTION Inpatient Status Date: Readmission Risk Assessment Score: @READMISSIONRISKDETAILS@ Discharging to Facility/ Agency Name: [facility] Address: [address] [place] [address] Dialysis Facility (if applicable) Name: Address: Dialysis Schedule: Phone: Fax: Blunger Machine Operator/Motor Coach Tour Operator signature: {E-signature:66443} PHYSICIAN SECTION Prognosis: {Rehab Prognosis:87988} Condition at Discharge: {Patient Condition:28744} Rehab Potential (if transferring to Rehab): {Rehab Prognosis:46473} Recommended Labs or Other Treatments After Discharge: Physician Certification: I certify the above information and transfer of Kendra Buitrago is necessary for the continuing treatment of the diagnosis listed and that she requires {GARY Level of Care:82292} for {greater less than:92942} 30 days. Update Admission H&P: {GARY Changes in H&P:00275} PHYSICIAN SIGNATURE: {E-signature:74355} documented in this encounter [facility] 11-10-2023 Hospital course Narrative Images from the original note were not included. Hospitalist Discharge Summary Kendra Buitrago : 1960 Admit date: 10/31/2023 Discharge date: 11/10/2023 Admitting Physician: Leti Quach MD Primary Care Physician: Vu Mullins MD Visit Status: admission Code Status: Full Code Discharge Diagnoses: Acute on chronic hypoxic hypercapnic respiratory failure Acute COPD exacerbation Haemophilus influenzae and coronavirus PNA Leukocytosis Polycythemia Elevated troponin, demand related DM type 2 with hyperglycemia HTN Obesity BMI of 30.52 Right chest wall pain Hospital Course: patient with acute on chronic hypoxic hypercapnic respiratory failure initially admitted to ICU for NIV, transferred out of ICU on 11/03/23. Patient weaned to HFNC, followed by pulmonology following transfer out of ICU. Found to be positive for haemophilus influenzae and coronavirus PNA, completed course of abx. Patient difficult to wean O2, was being considered for LTACH, however patient was eventually able to be weaned down to baseline 4L via NC which is what patient wears at home. She is recommended to follow up with PCP and primary dredge master outpatient in 1-2 weeks. Labs and vitals improved during hospital course. Patient discharged to home in improved and stable condition on 11/10/23. Consults: IP CONSULT TO PULMONOLOGY IP CONSULT TO HOME CARE NEEDS Discharge Instructions: Diet: Adult diet Regular Activity: as tolerated Recommended Outpatient Tests: Disposition: Patient discharged in stable condition to home LABS: CBC: Recent Labs 11/08/2333111/09/2361211/10/23 0400 WBC 11.5* 11.6* 11.3* RBC 4.27 4.63 4.45 HGB 12.9 13.9 13.4 HCT 41.6 44.8 43.4 MCV 97.4 96.8 97.5 RDW 12.8 13.1 13.1 PLT 215 228 220 BMP: Recent Labs 11/08/23 03311/09/23 0613 11/10/23 0400 NA 137 140 140 K 4.6 4.4 4.4 CL 95* 97* 99 CO2 37* 38* 33* BUN 29* 29* 29* CREATININE 0.52 0.57 0.52 GLUCOSE 108* 122* 130* CALCIUM 8.7 8.9 8.6 ANIONGAP 5 6 8 LIVER PROFILE: Recent Labs 11/08/2333111/09/23 0613 11/10/23 0400 AST 21 23 21 ALT 29 31 32 BILITOT 0.5 0.6 0.5 ALKPHOS 44 53 53 PROT 5.6* 6.0* 5.9* PT/INR: No results for input(s): PROTIME, INR in the last 72 hours. CARDIAC ENZYMES: No results for input(s): TROPONINI in the last 72 hours. Procalcitonin: No results found for: PROCAL COVID-19 PCR: No results for input(s): COVID19 in the last 72 hours. Vitals: BP (!) 182/79 Pulse 80 Temp 37.2 C (98.9 F) (Temporal) Resp 16 Ht 5' 7 (1.702 m) Wt 194 lb 14.2 oz (88.4 kg) SpO2 91% BMI 30.52 kg/m Pulse Ox: SpO2 Av.1 % Min: 90 % Max: 94 % Supplemental O2: O2 Flow Rate (L/min): 4 L/min General appearance: No apparent distress, appears stated age and cooperative with exam, female in NAD Respiratory: course diminished breath sounds BL, worse at lung bases. Cardiovascular: Regular rate and rhythm with no murmur Abdomen: Soft, non-tender, non-distended Skin: Skin color, texture, turgor normal. No rashes or lesions. Distal pulses intact in BL LE, no edema in BL LE. Neurologic: grossly non-focal. Discharge Medications: Medication List START taking these medications Lidocaine 4 % patch Place 1 patch on the skin daily. Start taking on: November 11, 2023 lisinopril 20 MG tablet Take 1 tablet (20 mg) by mouth daily. Start taking on: November 11, 2023 pantoprazole 40 MG EC tablet Commonly known as: ProtoNix Take 1 tablet (40 mg) by mouth Nightly. Do not crush, chew, or split. predniSONE 10 MG tablet Commonly known as: Deltasone Take 2 tablets (20 mg) by mouth daily for 1 day, THEN 1 tablet (10 mg) daily for 3 days. Start taking on: November 11, 2023 sennosides 8.6 MG tablet Commonly known as: Senokot Take 1 tablet (8.6 mg) by mouth Nightly. CONTINUE taking these medications * albuterol (2.5 MG/3ML) 0.083% nebulizer solution Take 3 mL (2.5 mg) by nebulization 4 times daily as needed for wheezing or shortness of breath. * albuterol 108 (90 Base) MCG/ACT inhaler inhale 2 puff by mouth and INTO THE LUNGS every 4 hours if needed Blood Glucose Monitoring Suppl device Check glucose fasting in am and 2 hours after evening meal. Blood Glucose Test strip Use as directed 3x day. Calcium Carb-Cholecalciferol 600-400 MG-UNIT tablet cetirizine-pseudoephedrine 5-120 MG 12 hr tablet Commonly known as: ZyrTEC-D Allergy & Sinus Take 1 tablet by mouth 2 times daily. fluticasone 50 MCG/ACT nasal spray Commonly known as: Flonase instill 2 sprays into each nostril at bedtime ipratropium-albuterol 0.5-2.5 mg/3 mL nebulizer solution Commonly known as: Duo-Neb INHALE 1 VIAL BY NEBULIZATION four times a day if needed for wheezing Mucus Relief ER 600 MG 12 hr tablet Generic drug: guaiFENesin Take 1 tablet (600 mg) by mouth 2 times daily. Do not crush, chew, or split. naproxen sodium 220 MG tablet Commonly known as: Aleve omega-3 1200 MG capsule Commonly known as: fish oil oxygen gas Commonly known as: O2 Roflumilast 500 MCG tablet Commonly known as: Daliresp sertraline 100 MG tablet Commonly known as: Zoloft take 1 tablet by mouth once daily Trelegy Ellipta 100-62.5-25 MCG/INH aerosol powder Generic drug: Lwyivmtantm-Ibsvfvvvq-Nizypr * This list has 2 medication(s) that are the same as other medications prescribed for you. Read the directions carefully, and ask your doctor or other care provider to review them with you. STOP taking these medications baclofen 5 MG tablet Commonly known as: Lioresal lisinopril-hydroCHLOROthiazide 20-25 MG tablet triamterene-hydrochlorothiazide 37.5-25 MG tablet Commonly known as: Maxzide-25 Where to Get Your Medications These medications were sent to [id number] - [place], [place] - [address] [id number] albuterol 108 (90 Base) MCG/ACT inhaler These medications were sent to [facility] [address] [place] [id number] Hours: Wednesday to Wednesday 10 am to 6 pm Lidocaine 4 % patch lisinopril 20 MG tablet pantoprazole 40 MG EC tablet predniSONE 10 MG tablet sennosides 8.6 MG tablet Recommended Follow-up: PCP, primary dredge master outpatient in 1-2 weeks @[email or web address]@ Complexity of Follow up: [] Moderate Complexity: follow up within 7-14 calendar days (09345) [x] Severe Complexity: follow up within 7 calendar days (10303) Follow up Testing, Pending results or Referrals at Transitional Care Visit: [x] yes [] no Instructions to MA: Please call patient on day after discharge (must document patient contacted within 2 business days of discharge). Follow up questions for MA: 1. Did you get medications filled and taking them as instructed from discharge? 2. Are you following your discharge instructions from your hospital stay? 3. Please confirm patient is scheduled for a follow up appointment within the above time frame. Signed: Gray Morocho DO [facility] In[facility] Medical Services/[facility] 11/10/2023, 12:34 PM Total time Spent on Discharge: 32 minutes documented in this encounter [facility] 11-10-2023 History of Present illness Narrative Images from the original note were not included. PHYSICAL THERAPY [facility] Treatment Note Name/MRN: Ember Buitrago ([id number]) Date of : 1960 Age: 63 y.o. Room[facility]Bed: [facility] A Visit #: 2 out of 8 Discharge Recommendation: Home with Home health PT, Home with assist PRN Equipment Needed: No Other: pending progess may need a FWW vs. rollator Assessment Pt presents with improved functional endurance and is progressing towards PT goals. Pt completed transfers MOD I and requires supervision during ambulation due to spo2 desaturation. Pt educated on correct pursed lip breathing and frequent rest breaks with good understanding. Pt spo2 85-89% with exertion and 92% at rest on 4L NC. Pt educated on endurance program at home and pulmonary rehab with good understanding. Continue to rec [facility] PT initially. Subjective Pt seated in recliner and agreeable to therapy. Spo2 89-90% while talking to family on phone. Observation: 4L NC intact Spo2 90-92% at rest Spo2 84-89% with exertion Pain: Pt denies any current pain. Medical Precautions: No active isolations Proper PPE donned/doffed in accordance with facility standards. Fall Risk: Orellana Fall Risk Score: 35 (Medium Risk) Overall Cognitive Status: WNL Overall Orientation Status: Oriented x4 Family/Caregiver Present: none Objective Ambulation Ambulation 1 Assistive device(s) used: none Assist level: Supervision Distance (ft): ~75'x2 Quality of gait: slow erika Pt educated on pursed lip breathing with good carryover. Spo2 84% after initial walk and then 89% after returning to room. Seated rest break for about 3 min in hallway on bench. Transfers/Mobility Sit to stand: Independent Stand to sit: Independent No difficulty completing. Device(s) used: none Exercises Pt educated on inspiratory holds and expiratory blows for endurance. inhale for 2 sec and 2-3 sec hold and then slow exhale for 5 seconds. Pt demos good understanding. Educated to complete seated cycling at home for about 15-20 min for endurance with low intensity and monitor spo2 throughout. Plan Continue acute PT per plan of care. Safety/Education Safety Safety Devices in place: All fall risk precautions in place, call light within reach, left in chair, and nurse notified Restraints: N/A Education Education Given To: patient Education Provided: PT Role, PT Goals, Gait Training, Plan of Care, Home Exercise Program, Precautions, Transfer Training, Energy Conservation, Equipment, and Discharge Recommendations Education Method: Verbal and Demonstration Barriers to Learning: None Education Outcome: Verbalized Understanding, Demonstrated Understanding, and Continued Education Needed Outcome Measures AM-PAC AM-PAC Inpatient Mobility Raw Score (No Stairs) : 19 Goals Patient Stated Goal: To return home. Encounter Problems Encounter Problems (Active) Balance Patient will maintain dynamic standing balance for 5 minutes with modified independence in order to demonstrate decreased risk of falling. (Progressing) Start: 11/02/23 Expected End: 11/12/23 Exercise Patient will complete lower extremity exercises for 1-2 sets / 10 reps in order to improve strength and activity tolerance for mobility. (Progressing) Start: 11/02/23 Expected End: 11/12/23 Mobility Patient will ambulate 100 feet with modified independence and least restrictive device in order to improve safety and independence with mobility. (Progressing) Start: 11/02/23 Expected End: 11/12/23 Patient will ascend and descend 3 stairs with one railing and supervision in order to safely negotiate home. (Not Addressed) Start: 11/02/23 Expected End: 11/12/23 Transfers Patient will perform bed mobility with modified independence in order to improve independence and prepare for out of bed mobility. (Not Addressed) Start: 11/02/23 Expected End: 11/12/23 Patient will complete functional transfers with least restrictive device with modified independence in order to prepare for ambulation. (Progressing) Start: 11/02/23 Expected End: 11/12/23 Therapy Time Individual Co-treatment Time In 1115 Time Out 1138 Minutes 23 Timed Code Treatment Minutes: 23 Minutes (1 Gt, 1 TP) Priya Moy PT Images from the original note were not included. OCCUPATIONAL THERAPY [facility] Treatment Note Name/MRN: Ember Buitrago ([id number]) Date of : 1960 Age: 63 y.o. Room/Bed: B2244/[facility] A Visit #: 5 out of 7 Discharge Recommendation: Home with Home health OT, Home with assist PRN Assessment Pt seated in recliner upon arrival. Pt performed STS, transfers, and functional mobility unsupported at short household distances at SUP. O2 6L throughout session with 75%-83% with activity. Extended rest periods with cuing for PLB technique recovering to 96% at rest. Pt limited by SOB and fatigue. Pt would benefit from skilled OT services to maximize safety and independence with ADLs and functional mobility. OT recs HHC and assist PRN. Subjective Agreeable for OT this date. Per RN, ok for tx Pain: Pt denies any current pain. Medical Precautions: No active isolations Proper PPE donned/doffed in accordance with facility standards. Fall Risk: Orellana Fall Risk Score: 15 (Low Risk) Family/Caregiver Present: none Objective ADLs Not assessed this session Pt deferred adl's this date stating having no issues with them. Transfers/Mobility Sit to stand: Modified Independent Stand to sit: Modified Independent Standing balance: Supervision Functional mobility: Supervision Pt performed STS at [place] this date. Functional mobility unsupported at Sup on 6L O2 with short mobility in room household distances. O2 desat to 75%-83% with extended seated recovery to 96% with cuing for PLB technique with good carryover. Education in standing rest periods and activity pacing for safety with good understanding and follow through this date. Device(s) used: oxygen Cognition - Safety judgement: decreased awareness of need for assistance and decreased awareness of need for safety - Insights: Pt aware of deficits but not following pacing techniques due to just wanting to get things done. Plan Continue acute OT per plan of care. Safety/Education Safety Safety Devices in place: All fall risk precautions in place, call light within reach, left in chair, and gait belt Restraints: No Education Education Given To: patient Education Provided: OT Role, Plan of Care, Transfer Training, Energy Conservation, and Breathing Techniques Education Method: Verbal and Teach Back Barriers to Learning: None Education Outcome: Verbalized Understanding, Demonstrated Understanding, and Continued Education Needed AM-PAC AM-PAC Inpatient Daily Activity Raw Score: 22 ADL Inpatient CMS G-Code Modifier: CJ Goals Patient Stated Goal: Encounter Problems Encounter Problems (Active) Balance Patient will tolerate standing for 3 minutes mod I at LRD to allow increased independence in ADLs. (Slowly Progressing) Start: 11/02/23 Expected End: 11/16/23 Dressing Upper Extremities Patient will complete upper body ADLs mod I. (Not Addressed) Start: 11/02/23 Expected End: 11/16/23 Dressings Lower Extremities Patient will complete lower body ADLs mod I. (Progressing) Start: 11/02/23 Expected End: 11/16/23 Mobility Patient will demonstrate functional ambulation mod I with LRD. (Slowly Progressing) Start: 11/02/23 Expected End: 11/16/23 Transfers Patient will complete functional transfer with least restrictive device with modified independence in order to prepare for ambulation. (Slowly Progressing) Start: 11/02/23 Expected End: 11/16/23 Encounter Problems (Resolved) Toileting Patient will complete toileting tasks at standard toilet with modified independence. (Goal Met) Start: 11/02/23 Expected End: 11/16/23 Resolved: 11/05/23 Therapy Time Individual Co-treatment Time In 0840 Time Out 0857 Minutes 17 Timed Code Treatment Minutes: 17 Minutes (1 TA) JOSE GUADALUPE Sanchez Images from the original note were not included. [facility], Pulmonary Medicine [address] [place] [id number] Patient - Kendra Buitrago, Age - 63 y.o. - 1960 Room Number - [id number]/[id number] A Consulting - Gray Morocho DO Primary Care Physician - [id number] Date of Admission - 10/31/2023 4:24 PM Hospital Day - 10 Chief Complaint Kendra Buitrago is a 63 y.o. female who pulmonary is following for severe COPD, acute on chronic combined hypoxic hypercapnic respiratory failure Interval History Patient is sitting in the chair, now on 4 L regular flow oxygen on nocturnal BiPAP All other systems reviewed Objective Vitals: BP 129/76 (BP Location: Left arm, Patient Position: Lying) Pulse 72 Temp 37.2 C (99 F) (Temporal) Resp 18 Ht 5' 7 (1.702 m) Wt 194 lb 14.2 oz (88.4 kg) SpO2 94% BMI 30.52 kg/m Pulse Ox: SpO2 Av.4 % Min: 90 % Max: 94 % Supplemental O2: O2 Flow Rate (L/min): 4 L/min I/O 24HR INTAKE/OUTPUT: No intake or output data in the 24 hours ending 11/10/23 0712 Exam General appearance: Awake, alert, no acute distress. On 4 liters NC. HEENT: Normocephalic, atraumatic. No scleral icterus, no right/left eye discharge. Conjunctivae normal. Pupils equal round and reactive to light. Right external ear normal, Left external ear normal. No congestion. Mouth: mucous membranes moist. Pharynx, Oropharynx is clear. No oropharyngeal exudate. Neck: ROM normal, No thyromegaly. No cervical lymphadenopathy Cardiovascular: Regular rate and rhythm. Heart sounds normal. Negative for murmur, friction rub or gallop. Pulmonary: Effort normal, no respiratory distress. No stridor rales in bases Abdomen: Soft, no distention, no abdominal tenderness. No guarding. No masses. Musculoskeletal: ROM normal, Negative for swelling, tenderness or deformity. Skin: Warm and dry. Skin is not jaundiced. No rash Extremities: No clubbing, cyanosis, or extremity edema Neurological: No focal deficits. Alert and oriented x person, place and time. Mental status is at baseline. No motor weakness. Psychiatric: Mood, behavior, thought content normal. Cooperative with exam. Medications Current Medications budesonide, 0.5 mg, Nebulization, BID enoxaparin, 40 mg, SubCUTAneous, Daily guaiFENesin, 600 mg, Oral, BID ipratropium-albuterol, 3 mL, Nebulization, 4x daily Lidocaine, 1 patch, TransDERmal, Daily lisinopril, 20 mg, Oral, Daily melatonin, 5 mg, Oral, Nightly pantoprazole, 40 mg, Oral, Nightly Or pantoprazole (ProtoNix) 40 mg in sodium chloride (PF) 0.9 % 10 mL injection, 40 mg, IntraVENous, Nightly predniSONE, 20 mg, Oral, Daily Followed by [START ON 11/12/2023] predniSONE, 10 mg, Oral, Daily sennosides, 1 tablet, Oral, Nightly sertraline, 100 mg, Oral, Daily sodium chloride, 4 mL, Nebulization, BID PRN Mediations PRN medications: acetaminophen, albuterol, albuterol, bisacodyl, ondansetron ODT OR ondansetron, sodium chloride IV Drips/Infusions Labs CBC Results from last 7 days Lab Units 11/10/23 0400 WBC AUTO 10*3/uL 11.3* HEMOGLOBIN g/dL 13.4 HEMATOCRIT % 43.4 PLATELETS AUTO 10*3/uL 220 BMP: Results from last 7 days Lab Units 11/10/23 0400 11/09/23 0613 11/08/23 0332 SODIUM mmol/L 140 140 137 POTASSIUM mmol/L 4.4 4.4 4.6 CHLORIDE mmol/L 99 97* 95* CO2 mmol/L 33* 38* 37* BUN mg/dL 29* 29* 29* CREATININE mg/dL 0.52 0.57 0.52 GLUCOSE mg/dL 130* 122* 108* CALCIUM mg/dL 8.6 8.9 8.7 ABG: Results from last 7 days Lab Units 11/05/23 0606 POCT PH, ARTERIAL pH 7.350 POCT PCO2, ARTERIAL mm Hg 80.9* POCT PO2, ARTERIAL mm Hg 78.3* POCT HCO3, ARTERIAL mmol/L 44.7* POCT BASE EXCESS, ARTERIAL mmol/L 14.8* LIVER PROFILE Results from last 7 days Lab Units 11/10/23 0400 11/09/23 0613 11/08/23 0332 ALK PHOS U/L 53 53 44 BILIRUBIN TOTAL mg/dL 0.5 0.6 0.5 PROTEIN TOTAL g/dL 5.9* 6.0* 5.6* ALT U/L 32 31 29 AST U/L 21 23 21 INR PTT No results found for: PTT Cultures Radiology Active Hospital Problem List Patient Active Problem List Diagnosis History of tobacco abuse Anxiety Posterior capsular opacification visually significant, left eye Hypertriglyceridemia COPD (chronic obstructive pulmonary disease) (HCC) COPD with acute exacerbation (HCC) Hypertension Episode of recurrent major depressive disorder (HCC) Chronic hypoxemic respiratory failure (HCC) Hepatic cyst Type 2 diabetes mellitus without complication, without long-term current use of insulin (CMS/HCC) (HCC) COPD exacerbation (HCC) Swelling of left foot Dependent edema Respiratory failure (HCC) Assessment and Plan Acute on chronic combined hypoxic/hypercapnic respiratory failure, improving oxygenation, patient is on 4 L supplemental oxygen at home 13 mm left upper lobe nodule, short-term follow-up CT postdischarge to monitor for stability End-stage COPD previous 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 Hospitalist Progress Note 11/09/[phone]: Please page me ([phone]) for patient care issues. [phone]: Please page [facility] Hospitalist for any issues. Subjective: Admit Date: 10/31/2023 PCP: Vu Mullins MD Room#: B2-244/[id number] A Interval History: patient admitted for Acute on chronic hypoxic hypercapnic respiratory failure. No overnight issues. Denies sob, abdominal pain, nausea, vomiting, diarrhea, constipation, fevers, or chills. Reports right sided chest wall pain with cough. Adult diet Regular 24HR INTAKE/OUTPUT: No intake or output data in the 24 hours ending 11/09/23 1503 Past Medical History: Past Medical History: Diagnosis Date COPD (chronic obstructive pulmonary disease) (HCC) Hypertension Polyp at cervical os SOB (shortness of breath) Tobacco abuse Tobacco abuse counseling LABS: CBC: Recent Labs 11/07/23 0123 11/08/23 0332 11/09/23 0613 WBC 10.3 11.5* 11.6* RBC 4.23 4.27 4.63 HGB 12.9 12.9 13.9 HCT 41.3 41.6 44.8 MCV 97.6 97.4 96.8 RDW 12.6 12.8 13.1 PLT 238 215 228 BMP: Recent Labs 11/07/23 0123 11/08/23 0332 11/09/23 0613 NA 136 137 140 K 4.2 4.6 4.4 CL 94* 95* 97* CO2 38* 37* 38* BUN 31* 29* 29* CREATININE 0.57 0.52 0.57 GLUCOSE 176* 108* 122* CALCIUM 8.6 8.7 8.9 ANIONGAP 4 5 6 LIVER PROFILE: Recent Labs 11/07/23 0123 11/08/23 0332 11/09/23 0613 AST 19 21 23 ALT 32 29 31 BILITOT 0.5 0.5 0.6 ALKPHOS 52 44 53 PROT 5.5* 5.6* 6.0* PT/INR: No results for input(s): PROTIME, INR in the last 72 hours. CARDIAC ENZYMES: No results for input(s): TROPONINI in the last 72 hours. Procalcitonin: No results found for: PROCAL COVID-19 PCR: No results for input(s): COVID19 in the last 72 hours. Objective: Vitals: BP 152/77 Pulse 80 Temp 36.2 C (97.2 F) (Temporal) Resp 16 Ht 5' 7 (1.702 m) Wt 194 lb 14.2 oz (88.4 kg) SpO2 90% BMI 30.52 kg/m Pulse Ox: SpO2 Av.4 % Min: 90 % Max: 94 % Supplemental O2: O2 Flow Rate (L/min): 5 L/min General appearance: No apparent distress, appears stated age and cooperative with exam, female in NAD Respiratory: course diminished breath sounds BL, no wheezing. Cardiovascular: Regular rate and rhythm with no murmur Abdomen: Soft, non-tender, non-distended Skin: Skin color, texture, turgor normal. No rashes or lesions. Distal pulses intact in BL LE, no edema in BL LE. Neurologic: grossly non-focal. Medications: budesonide, 0.5 mg, Nebulization, BID enoxaparin, 40 mg, SubCUTAneous, Daily guaiFENesin, 600 mg, Oral, BID ipratropium-albuterol, 3 mL, Nebulization, 4x daily Lidocaine, 1 patch, TransDERmal, Daily lisinopril, 20 mg, Oral, Daily melatonin, 5 mg, Oral, Nightly pantoprazole, 40 mg, Oral, Nightly Or pantoprazole (ProtoNix) 40 mg in sodium chloride (PF) 0.9 % 10 mL injection, 40 mg, IntraVENous, Nightly predniSONE, 20 mg, Oral, Daily Followed by [START ON 11/12/2023] predniSONE, 10 mg, Oral, Daily sennosides, 1 tablet, Oral, Nightly sertraline, 100 mg, Oral, Daily sodium chloride, 4 mL, Nebulization, BID Assessment Acute on chronic hypoxic hypercapnic respiratory failure Acute COPD exacerbation H influenzae and coronavirus PNA Leukocytosis Patient baseline on 4L via NC, still requiring HFNC Steroids, breathing treatments, hypertonic saline nebulizer, percussion vest, mucinex Pulmonology following Evaluate for LTACH? Completed course of abx Polycythemia 2/2 chronic hypoxia Elevated troponin, demand related Negative for CP DM type 2 with hyperglycemia SSI coverage HTN Lisinopril, hold hydrochlorothiazide Obesity BMI of 30.52 Right chest wall pain Lidoderm patch Medical Decision Making 11/09/23: patient with acute on chronic hypoxic hypercapnic respiratory failure requiring HFNC. Found to be positive for haemophilus influenzae and coronavirus PNA, completed course of abx. Remains on HFNC, unable to wean to 4L via NC. Pulmonology following, percussion vest, nebulized hypertonic saline, duonebs, steroids. Wean O2 as tolerated. Patient being considered for LTACH? Labs and vitals reviewed and otherwise stable. CBC and BMP in the AM. -am labs, replace lytes prn -increase activity -resume home medications as indicated -DVT prophylaxis: [x] Lovenox [] Heparin [] SCDs [x] Encourage ambulation [] Already on Anticoagulation Anticipated Discharge - Date - 11/09 vs 11/10 - Location - Home - Pending the following - improvement in respiratory status Toxic drug monitoring/narrow therapeutic index drug monitoring : # Drug name : # Route administered : # Method of monitoring : Extended Emergency Contact Information Primary Emergency Contact: Chidi Buitrago Relation: Spouse Gray Morocho DO [facility] Inpatient Medical Services/[facility] PAGER: THYME chat Images from the original note were not included. [facility], Pulmonary Medicine [address] [place] [address] Patient - Kendra Buitrago, Age - 63 y.o. - 1960 Room Number - [id number] A Consulting - Ronaldo Barr MD Primary Care Physician - Vu Mullins MD Date of Admission - 10/31/2023 4:24 PM Hospital Day - 9 Chief Complaint Kendra Buitrago is a 63 y.o. female who pulmonary is following for severe COPD with acute on chronic combined hypoxic hypercapnic respiratory failure Interval History Patient still on 5 to 6 L of salter high flow oxygen, states that she used BiPAP for 4 hours last night All other systems reviewed Objective Vitals: BP 143/67 (BP Location: Left arm, Patient Position: Lying) Pulse 91 Temp 36.3 C (97.4 F) (Temporal) Resp 18 Ht 5' 7 (1.702 m) Wt 194 lb 14.2 oz (88.4 kg) SpO2 93% BMI 30.52 kg/m Pulse Ox: SpO2 Av.5 % Min: 91 % Max: 95 % Supplemental O2: O2 Flow Rate (L/min): 5 L/min I/O 24HR INTAKE/OUTPUT: Intake/Output Summary (Last 24 hours) at 11/09/2023 0653 Last data filed at 11/08/2023 0758 Gross per 24 hour Intake 400 ml Output -- Net 400 ml Exam General appearance: Awake, alert, no acute distress. On 5 liters NC. HEENT: Normocephalic, atraumatic. No scleral icterus, no right/left eye discharge. Conjunctivae normal. Pupils equal round and reactive to light. Right external ear normal, Left external ear normal. No congestion. Mouth: mucous membranes moist. Pharynx, Oropharynx is clear. No oropharyngeal exudate. Neck: ROM normal, No thyromegaly. No cervical lymphadenopathy Cardiovascular: Regular rate and rhythm. Heart sounds normal. Negative for murmur, friction rub or gallop. Pulmonary: Effort normal, no respiratory distress. No stridor rales in bases Abdomen: Soft, no distention, no abdominal tenderness. No guarding. No masses. Musculoskeletal: ROM normal, Negative for swelling, tenderness or deformity. Skin: Warm and dry. Skin is not jaundiced. No rash Extremities: No clubbing, cyanosis, or extremity edema Medications Current Medications budesonide, 0.5 mg, Nebulization, BID enoxaparin, 40 mg, SubCUTAneous, Daily ipratropium-albuterol, 3 mL, Nebulization, 4x daily lisinopril, 20 mg, Oral, Daily melatonin, 5 mg, Oral, Nightly pantoprazole, 40 mg, Oral, Nightly Or pantoprazole (ProtoNix) 40 mg in sodium chloride (PF) 0.9 % 10 mL injection, 40 mg, IntraVENous, Nightly predniSONE, 20 mg, Oral, Daily Followed by [START ON 11/12/2023] predniSONE, 10 mg, Oral, Daily sennosides, 1 tablet, Oral, Nightly sertraline, 100 mg, Oral, Daily sodium chloride, 4 mL, Nebulization, BID PRN Mediations PRN medications: acetaminophen, albuterol, albuterol, bisacodyl, guaiFENesin, ondansetron ODT OR ondansetron, sodium chloride IV Drips/Infusions Labs CBC Results from last 7 days Lab Units 11/09/23 0613 WBC AUTO 10*3/uL 11.6* HEMOGLOBIN g/dL 13.9 HEMATOCRIT % 44.8 PLATELETS AUTO 10*3/uL 228 BMP: Results from last 7 days Lab Units 11/09/23 0613 11/08/23 0332 11/07/23 0123 SODIUM mmol/L 140 137 136 POTASSIUM mmol/L 4.4 4.6 4.2 CHLORIDE mmol/L 97* 95* 94* CO2 mmol/L 38* 37* 38* BUN mg/dL 29* 29* 31* CREATININE mg/dL 0.57 0.52 0.57 GLUCOSE mg/dL 122* 108* 176* CALCIUM mg/dL 8.9 8.7 8.6 ABG: Results from last 7 days Lab Units 11/05/23 0606 POCT PH, ARTERIAL pH 7.350 POCT PCO2, ARTERIAL mm Hg 80.9* POCT PO2, ARTERIAL mm Hg 78.3* POCT HCO3, ARTERIAL mmol/L 44.7* POCT BASE EXCESS, ARTERIAL mmol/L 14.8* LIVER PROFILE Results from last 7 days Lab Units 11/09/23 0613 11/08/23 0332 11/07/23 0123 ALK PHOS U/L 53 44 52 BILIRUBIN TOTAL mg/dL 0.6 0.5 0.5 PROTEIN TOTAL g/dL 6.0* 5.6* 5.5* ALT U/L 31 29 32 AST U/L 23 21 19 INR PTT No results found for: PTT Cultures Radiology CT Chest: Results for orders placed during the hospital encounter of 10/31/23 CT chest wo IV contrast Narrative Patient Name: KENDRA [facility]AGO [facility] 1960 [id number] Exam Date/Time: 11/02/2023 08:29 Procedure: CT CHEST WO IV CONTRAST Ordering Provider: PHIPPS MICHAEL Reason For Exam: Diffuse/interstitial lung disease CT CHEST CLINICAL INDICATION: Diffuse interstitial lung disease. TECHNIQUE: Transaxial sequence from apices through the bases Coronal and sagittal reconstructions included. Dose reduction was employed with automated exposure control. Contrast:None Additional technique:None COMPARISON: None. FINDINGS: Airway:No definite acute process. Lungs: Fibrotic appearing changes. Left upper lobe infiltrate density. 13 mm left upper lobe nodule. 7 mm right upper lobe nodule. Scarring or atelectasis both lung bases. Large bleb or bolus changes right lower lobe. Pleura: No definite effusion or pneumothorax.. Heart/Great vessels: Mild to moderate atherosclerotic calcifications. Mild cardiac enlargement. Mediastinum/Chary: No mass or enlarged lymph nodes identified. Chest wall and lower neck: No convincing acute process.. Upper abdomen: No convincing acute process. Liver cyst. Osseous structures: No convincing acute process.. Impression Abnormal lungs. Suspected infiltrate left upper lobe. Please correlate clinically. Pulmonary nodules up to 13 mm. Scarring or atelectasis bilaterally. Cardiac enlargement and atherosclerosis.. Follow-up recommended. 2017 - UPDATED [employer] GUIDELINES FOR MANAGEMENT OF SMALL PULMONARY NODULES DETECTED ON CT Note: Recommendations do not apply for lung cancer screening, patients with immunosuppression or with known cancer. Dimensions are average of long and short axis rounded to the millimeter SOLITARY NODULE: LOW RISK PATIENT <6mm - No follow up 6-8mm - 6-12 months, then consider 18-24 months >8mm - PET/CT, Bx or followup in 3 months SOLITARY NODULE: HIGH RISK PATIENT <6mm - Optional 6-12 months (suspicious morphology or upper lobe) 6-8mm - 6-12 months, then 18-24 months >8mm - PET/CT, Bx or followup in 3 months MULTIPLE NODULES: LOW RISK PATIENT (Use most suspicious nodule to manage guidelines) All <6mm - No follow up Any >6mm - 3-6 months, then consider 18-24 months MULTIPLE NODULES: HIGH RISK PATIENT (Use most suspicious nodule to manage guidelines) All <6mm - No follow up Any >6mm - 3-6 months, then 18-24 months SUBSOLID NODULE: SINGLE GROUND GLASS OPACITY <6mm - No follow up 6mm or greater - 6-12 months, then every 2 years until 5 years SUBSOLID NODULE: PART SOLID <6mm - No follow up 6mm or greater - 3-6 months, then if solid component <6mm and unchanged every year until 5 years MULTIPLE SUBSOLID NODULES: All <6mm - 3-6 months, then if stable 24 and 48 months 6mm or greater - 3-6 months, subsequent management based upon most suspicious nodule Report Dictated on Electronically Signed By: Mykel Mccurdy MD Electronically Signed Date/Time: 11/02/2023 8:37 AM EDT Active Hospital Problem List Patient Active Problem List Diagnosis History of tobacco abuse Anxiety Posterior capsular opacification visually significant, left eye Hypertriglyceridemia COPD (chronic obstructive pulmonary disease) (HCC) COPD with acute exacerbation (HCC) Hypertension Episode of recurrent major depressive disorder (HCC) Chronic hypoxemic respiratory failure (HCC) Hepatic cyst Type 2 diabetes mellitus without complication, without long-term current use of insulin (CMS/HCC) (HCC) COPD exacerbation (HCC) Swelling of left foot Dependent edema Respiratory failure (HCC) Assessment and Plan Acute on chronic combined hypoxic/hypercapnic respiratory failure, continue BiPAP nightly and as needed with salter high flow oxygen, arrange for ongoing NIV to help decrease work of breathing improved gas exchange and prevent rehospitalization's Haemophilus influenzae pneumonia-completed antibiotics 13 mm left upper lobe nodule post DC short-term follow-up CAT scan to monitor for stability End-stage COPD previous FEV1 was 30% predicted with acute exacerbation, continue wean steroids as tolerated continue bronchodilators/BiPAP History of obstructive sleep apnea, currently on BiPAP History of tobacco abuse quit 6 months ago encourage patient to continue with abstaining from smoking Advance Directive: Full Code Discharge planning: TBD Case discussed with nurse and patient Questions and concerns addressed. Images from the original note were not included. OCCUPATIONAL THERAPY [facility] Treatment Note Name/MRN: Ember Buitrago ([id number]) Date of : 1960 Age: 63 y.o. Room/Bed: B2-244/B2-244 A Visit #: 4 out of 7 visits Discharge Recommendation: Home with Home health OT, Home with assist PRN Prior Level of Function ADL Assistance: Independent Ambulation Assistance: Independent Transfer Assistance: Independent Assessment Pt using the BSC when MCCORMICK entered the room. O2 on at 5 liters. Pt agreeable to therapy. Pt stood up from the BSC and did not need assist with toileting. Pt then walked over to the sink and was rushing to clean up hr mess that she made from bathing prior to OT. Her bucket and items had spilled on the floor and pt was observed bending over to pick things up. MCCORMICK assisted in cleaning up from ADL's. Pt reports she took her own bath and washed her hair at the sink. Pt admits rushing due to being afraid someone would walk in. Pt very SOB and pulse Ox in the 80's. Pt encouraged to rest and focus on breathing. O2 finally went up to 92% on 5 liters. Pt wanting to get out of her room to walk. Pt walked down the finnegan and back on 6 liters O2 (Tank is only 4 or 6) and pt dropping to 83%. Took 3 standing rest breaks with focus on breathing and energy conservation. Once back to room. Pt took the O2 tank and walked to the bathroom for toileting. Respiratory therapist placed pt on 6 liters on her wall O2 vs 5 liters. O2 back up to 94% on 6 liters after sitting and resting for 4 minutes. Pt limited by SOB and fatigue. OT recs home with [facility] OT and assist PRN. Subjective Pleasant and cooperative. Pain: Pt denies any current pain. Medical Precautions: No active isolations Proper PPE donned/doffed in accordance with facility standards. Fall Risk: Orellana Fall Risk Score: 45 (High Risk) Precautions/Restrictions: N/A Family/Caregiver Present: none Objective ADLs Toileting: Modified Independent Pt reports that she washed herself from head to toe and also washed her hair prior to OT entering the room. States that she did this at the sink and was rushing because she was afraid someone was going to walk in. Pt very SOB when MCCORMICK entered the room and was just getting up from the BSC. Pt then started to continuous pickling line pickler helper things off the floor. Pt educated on pacing and energy conservation. MCCORMICK assisted by cleaning up ADL items that were on the floor. Bed Mobility Not observed. On BSC when MCCORMICK entered the room and sitting EOB at end of session. Transfers/Mobility Sit to stand: Modified Independent Stand to sit: Modified Independent Bedside commode: Modified Independent Toilet: Modified Independent Sitting balance: Modified Independent Standing balance: Supervision Functional mobility: Supervision, SBA Pt educated on energy conservation, pacing and breathing techniques. Pt took 3 standing rest breaks while walking down the finnegan and back. No device used but MCCORMICK managing O2. Pt denies dizziness and had no LOB. Pt limited by SOB and decreased endurance. Device(s) used: bedside commode and oxygen Cognition - Safety judgement: decreased awareness of need for assistance and decreased awareness of need for safety - Insights: Pt aware of deficits but not following pacing techniques due to just wanting to get things done. Pt with decreased safety awareness. Is impulsive and moves quickly. Plan Continue acute OT per plan of care. Safety/Education Safety Safety Devices in place: All fall risk precautions in place, call light within reach, left in bed, gait belt, patient at risk for falls, nurse notified, no alarms engaged upon entry, and patient left sitting EOB Restraints: No Education Education Given To: patient Education Provided: OT Role, Plan of Care, Precautions, ADL Adaptive Strategies, Energy Conservation, Fall Prevention Education, Benefits of Increasing Activity, and Breathing Techniques Education Method: Verbal and Demonstration Barriers to Learning: None Education Outcome: Verbalized Understanding, Demonstrated Understanding, and Continued Education Needed AM-PAC AM-PAC Inpatient Daily Activity Raw Score: 22 ADL Inpatient CMS G-Code Modifier: CJ Goals Patient Stated Goal: Wants to go home Encounter Problems Encounter Problems (Active) Balance Patient will tolerate standing for 3 minutes mod I at LRD to allow increased independence in ADLs. (Progressing) Start: 11/02/23 Expected End: 11/16/23 Dressing Upper Extremities Patient will complete upper body ADLs mod I. (Progressing) Start: 11/02/23 Expected End: 11/16/23 Dressings Lower Extremities Patient will complete lower body ADLs mod I. (Progressing) Start: 11/02/23 Expected End: 11/16/23 Mobility Patient will demonstrate functional ambulation mod I with LRD. (Progressing) Start: 11/02/23 Expected End: 11/16/23 Transfers Patient will complete functional transfer with least restrictive device with modified independence in order to prepare for ambulation. (Progressing) Start: 11/02/23 Expected End: 11/16/23 Encounter Problems (Resolved) Toileting Patient will complete toileting tasks at standard toilet with modified independence. (Goal Met) Start: 11/02/23 Expected End: 11/16/23 Resolved: 11/05/23 Therapy Time Individual Co-treatment Time In 1250 Time Out 1324 Minutes 34 Timed Code Treatment Minutes: 32 Minutes (adl and ther act) JACE Hernandez Hospitalist Progress Note 11/08/[id number]: Please page me ([phone]) for patient care issues. [phone]: Please page [facility] Hospitalist for any issues. Subjective: Admit Date: 10/31/2023 PCP: Vu Mullins MD Room#: B2-244/B2-244 A Interval History: No overnight issues. Denies chest pain but is a little sob. SOB worse with exertion. No abdominal pain, nausea, vomiting. No fevers or chills. Adult diet Regular @[id number]@ 24HR INTAKE/OUTPUT: Intake/Output Summary (Last 24 hours) at 11/08/2023 1239 Last data filed at 11/08/2023 0758 Gross per 24 hour Intake 400 ml Output -- Net 400 ml Past Medical History: Past Medical History: Diagnosis Date COPD (chronic obstructive pulmonary disease) (HCC) Hypertension Polyp at cervical os SOB (shortness of breath) Tobacco abuse Tobacco abuse counseling LABS: CBC: Recent Labs 11/06/23 0334 11/07/233 11/08/23 033 WBC 10.5 10.3 11.5* RBC 4.37 4.23 4.27 HGB 13.1 12.9 12.9 HCT 43.1 41.3 41.6 MCV 98.6 97.6 97.4 RDW 12.7 12.6 12.8 PLT 254 238 215 BMP: Recent Labs 11/06/23 03311/07/233 11/08/23 033 NA 140 136 137 K 4.3 4.2 4.6 CL 96* 94* 95* CO2 39* 38* 37* BUN 35* 31* 29* CREATININE 0.63 0.57 0.52 GLUCOSE 137* 176* 108* CALCIUM 9.0 8.6 8.7 ANIONGAP 5 4 5 LIVER PROFILE: Recent Labs 11/06/23 0334 11/07/233 11/08/23331 AST 19 19 21 ALT 40* 32 29 BILITOT 0.4 0.5 0.5 ALKPHOS 53 52 44 PROT 5.9* 5.5* 5.6* PT/INR: No results for input(s): PROTIME, INR in the last 72 hours. CARDIAC ENZYMES: No results for input(s): TROPONINI in the last 72 hours. Procalcitonin: No results found for: PROCAL COVID-19 PCR: No results for input(s): COVID19 in the last 72 hours. Objective: Vitals: BP 149/82 (BP Location: Right arm, Patient Position: Sitting) Pulse 79 Temp 36.2 C (97.1 F) (Temporal) Resp 16 Ht 5' 7 (1.702 m) Wt 194 lb 14.2 oz (88.4 kg) SpO2 91% BMI 30.52 kg/m Pulse Ox: SpO2 Av.2 % Min: 91 % Max: 97 % Supplemental O2: O2 Flow Rate (L/min): 6 L/min General appearance: No apparent distress, appears stated age, HEENT: Eyes: No scleral icterus Oral: Tongue is semi-moist Cardiovascular: S1/S2 heard, RRR Respiratory: decreased but clear, no wheezing Abdomen: Soft, non-tender, non-distended bowel sounds positive Musculoskeletal: No obvious deformities seen Skin: No visible rashes or lesions. Medications: budesonide, 0.5 mg, Nebulization, BID enoxaparin, 40 mg, SubCUTAneous, Daily ipratropium-albuterol, 3 mL, Nebulization, 4x daily lisinopril, 20 mg, Oral, Daily melatonin, 5 mg, Oral, Nightly pantoprazole, 40 mg, Oral, Nightly Or pantoprazole (ProtoNix) 40 mg in sodium chloride (PF) 0.9 % 10 mL injection, 40 mg, IntraVENous, Nightly [START ON 11/09/2023] predniSONE, 20 mg, Oral, Daily Followed by [START ON 11/12/2023] predniSONE, 10 mg, Oral, Daily sennosides, 1 tablet, Oral, Nightly sertraline, 100 mg, Oral, Daily sodium chloride, 4 mL, Nebulization, BID Assessment # Acute on Chronic Respiratory Failure with Hypoxia and Hypercapnia (previously on 4LNC chronically) - on high flow NC O2. Wean as able. Continue autobipap at night with nasal pillows as recommended per pulm/crit. Continue chest PT and incentive spirometer to assist with atelectasis. Continue guaifenesin to assist with clearance of secretions. # Acute exacerbation of COPD in setting of severe COPD/Emphysema - continue steroids/breathing tx. # H. Influenza + coronavirus PNA - continue rocephin IV and supportive tx. # Leukocytosis # Polycythemia suspect chronic from chronic hypoxia # Elevated troponin likely due to demand ischemia # DM type 2 with hyperglycemia # Chronic HTN - resumed lisinopril but held HCTZ # Obesity (BMI 30.28) Plan - Continue HFNC, wean as able. Pulmonary following and recommending LTAC as patient has been slow wean. TCC/SW making referral. - continue 3% sodium nebulized. She states it is helping her cough up more sputum. - Continue Ceftriaxone. - Pulmonary following. - continue chest PT and incentive spirometer to assist with atelectasis. Continue guaifenesin to assist with clearance of secretions. - continue steroids and breathing tx. - continue autoBiPAP at bedtime and with naps as per pulmonary - resumed lisinopril but hold home hydrochlorothiazide. - PT/OT saw and recommending Home with Home health PT, Home with assist PRN but barrier to discharge is that patient remains on High flow NC O2. - check daily labs Extended Emergency Contact Information Primary Emergency Contact: Chidi Buitrago [place] Relation: Spouse Ronaldo Barr MD Division of Hospitalist Medicine Inpatient Medical Services/[facility] [place] PAGER: Epic chat Images from the original note were not included. [facility] [place], Pulmonary Medicine [address] [place] [id number] Patient - Kendra Buitrago, Age - 63 y.o. - 1960 Room Number - B2-244/B2-244 A Consulting - Ronaldo Barr MD Primary Care Physician - Vu Mullins MD Date of Admission - 10/31/2023 4:24 PM Hospital Day - 8 Chief Complaint Kendra Buitrago is a 63 y.o. female who pulmonary is following for end-stage COPD with acute on chronic combined hypoxic hypercapnic respiratory failure Interval History Patient is on 6 L salter high flow oxygen, also on BiPAP therapy at night most recent ABG done on 04 Nov 2023 shows pH of 7.35 pCO2 of 80 All other systems reviewed Objective Vitals: BP 152/66 (BP Location: Left arm, Patient Position: Lying) Pulse 74 Temp 36.4 C (97.5 F) (Temporal) Resp 18 Ht 5' 7 (1.702 m) Wt 194 lb 14.2 oz (88.4 kg) SpO2 97% BMI 30.52 kg/m Pulse Ox: SpO2 Av.7 % Min: 92 % Max: 97 % Supplemental O2: O2 Flow Rate (L/min): 6 L/min I/O 24HR INTAKE/OUTPUT: No intake or output data in the 24 hours ending 11/08/23 0655 Exam General appearance: Awake, alert, no acute distress. On 6 liters NC. HEENT: Normocephalic, atraumatic. No scleral icterus, no right/left eye discharge. Conjunctivae normal. Pupils equal round and reactive to light. Right external ear normal, Left external ear normal. No congestion. Mouth: mucous membranes moist. Pharynx, Oropharynx is clear. No oropharyngeal exudate. Neck: ROM normal, No thyromegaly. No cervical lymphadenopathy Cardiovascular: Regular rate and rhythm. Heart sounds normal. Negative for murmur, friction rub or gallop. Pulmonary: Effort normal, no respiratory distress. No stridor bilateral rales in the bases Abdomen: Soft, no distention, no abdominal tenderness. No guarding. No masses. Musculoskeletal: ROM normal, Negative for swelling, tenderness or deformity. Skin: Warm and dry. Skin is not jaundiced. No rash Extremities: No clubbing, cyanosis, or extremity edema Neurological: No focal deficits. Alert and oriented x person, place and time. Mental status is at baseline. No motor weakness. Psychiatric: Mood, behavior, thought content normal. Cooperative with exam. Medications Current Medications budesonide, 0.5 mg, Nebulization, BID cefTRIAXone, 1,000 mg, IntraVENous, q24h enoxaparin, 40 mg, SubCUTAneous, Daily ipratropium-albuterol, 3 mL, Nebulization, 4x daily lisinopril, 20 mg, Oral, Daily melatonin, 5 mg, Oral, Nightly pantoprazole, 40 mg, Oral, Nightly Or pantoprazole (ProtoNix) 40 mg in sodium chloride (PF) 0.9 % 10 mL injection, 40 mg, IntraVENous, Nightly predniSONE, 30 mg, Oral, Daily sennosides, 1 tablet, Oral, Nightly sertraline, 100 mg, Oral, Daily sodium chloride, 4 mL, Nebulization, BID PRN Mediations PRN medications: acetaminophen, albuterol, bisacodyl, guaiFENesin, ondansetron ODT OR ondansetron, sodium chloride IV Drips/Infusions Labs CBC Results from last 7 days Lab Units 11/08/23 0332 WBC AUTO 10*3/uL 11.5* HEMOGLOBIN g/dL 12.9 HEMATOCRIT % 41.6 PLATELETS AUTO 10*3/uL 215 BMP: Results from last 7 days Lab Units 11/08/23 0332 11/07/23 0123 11/06/23 0334 SODIUM mmol/L 137 136 140 POTASSIUM mmol/L 4.6 4.2 4.3 CHLORIDE mmol/L 95* 94* 96* CO2 mmol/L 37* 38* 39* BUN mg/dL 29* 31* 35* CREATININE mg/dL 0.52 0.57 0.63 GLUCOSE mg/dL 108* 176* 137* CALCIUM mg/dL 8.7 8.6 9.0 ABG: Results from last 7 days Lab Units 11/05/23 0606 POCT PH, ARTERIAL pH 7.350 POCT PCO2, ARTERIAL mm Hg 80.9* POCT PO2, ARTERIAL mm Hg 78.3* POCT HCO3, ARTERIAL mmol/L 44.7* POCT BASE EXCESS, ARTERIAL mmol/L 14.8* LIVER PROFILE Results from last 7 days Lab Units 11/08/23 0332 11/07/23 0123 11/06/23 0334 ALK PHOS U/L 44 52 53 BILIRUBIN TOTAL mg/dL 0.5 0.5 0.4 PROTEIN TOTAL g/dL 5.6* 5.5* 5.9* ALT U/L 29 32 40* AST U/L 21 19 19 INR PTT No results found for: PTT Cultures Radiology CT Chest: Results for orders placed during the hospital encounter of 10/31/23 CT chest wo IV contrast Narrative Patient Name: KENDRA BUITRAGO : 1960 Exam Date/Time: 11/02/2023 08:29 Procedure: CT CHEST WO IV CONTRAST Ordering Provider: PHIPPS MICHAEL Reason For Exam: Diffuse/interstitial lung disease CT CHEST CLINICAL INDICATION: Diffuse interstitial lung disease. TECHNIQUE: Transaxial sequence from apices through the bases Coronal and sagittal reconstructions included. Dose reduction was employed with automated exposure control. Contrast:None Additional technique:None COMPARISON: None. FINDINGS: Airway:No definite acute process. Lungs: Fibrotic appearing changes. Left upper lobe infiltrate density. 13 mm left upper lobe nodule. 7 mm right upper lobe nodule. Scarring or atelectasis both lung bases. Large bleb or bolus changes right lower lobe. Pleura: No definite effusion or pneumothorax.. Heart/Great vessels: Mild to moderate atherosclerotic calcifications. Mild cardiac enlargement. Mediastinum/Chary: No mass or enlarged lymph nodes identified. Chest wall and lower neck: No convincing acute process.. Upper abdomen: No convincing acute process. Liver cyst. Osseous structures: No convincing acute process.. Impression Abnormal lungs. Suspected infiltrate left upper lobe. Please correlate clinically. Pulmonary nodules up to 13 mm. Scarring or atelectasis bilaterally. Cardiac enlargement and atherosclerosis.. Follow-up recommended. 2017 - UPDATED [employer] GUIDELINES FOR MANAGEMENT OF SMALL PULMONARY NODULES DETECTED ON CT Note: Recommendations do not apply for lung cancer screening, patients with immunosuppression or with known cancer. Dimensions are average of long and short axis rounded to the millimeter SOLITARY NODULE: LOW RISK PATIENT <6mm - No follow up 6-8mm - 6-12 months, then consider 18-24 months >8mm - PET/CT, Bx or followup in 3 months SOLITARY NODULE: HIGH RISK PATIENT <6mm - Optional 6-12 months (suspicious morphology or upper lobe) 6-8mm - 6-12 months, then 18-24 months >8mm - PET/CT, Bx or followup in 3 months MULTIPLE NODULES: LOW RISK PATIENT (Use most suspicious nodule to manage guidelines) All <6mm - No follow up Any >6mm - 3-6 months, then consider 18-24 months MULTIPLE NODULES: HIGH RISK PATIENT (Use most suspicious nodule to manage guidelines) All <6mm - No follow up Any >6mm - 3-6 months, then 18-24 months SUBSOLID NODULE: SINGLE GROUND GLASS OPACITY <6mm - No follow up 6mm or greater - 6-12 months, then every 2 years until 5 years SUBSOLID NODULE: PART SOLID <6mm - No follow up 6mm or greater - 3-6 months, then if solid component <6mm and unchanged every year until 5 years MULTIPLE SUBSOLID NODULES: All <6mm - 3-6 months, then if stable 24 and 48 months 6mm or greater - 3-6 months, subsequent management based upon most suspicious nodule Report Dictated on Electronically Signed By: Mykel Mccurdy MD Electronically Signed Date/Time: 11/02/2023 8:37 AM EDT Active Hospital Problem List Patient Active Problem List Diagnosis History of tobacco abuse Anxiety Posterior capsular opacification visually significant, left eye Hypertriglyceridemia COPD (chronic obstructive pulmonary disease) (HCC) COPD with acute exacerbation (HCC) Hypertension Episode of recurrent major depressive disorder (HCC) Chronic hypoxemic respiratory failure (HCC) Hepatic cyst Type 2 diabetes mellitus without complication, without long-term current use of insulin (CMS/HCC) (HCC) COPD exacerbation (HCC) Swelling of left foot Dependent edema Respiratory failure (HCC) Assessment and Plan Acute on chronic combined hypoxic hypercapnic respiratory failure, wean salter high flow oxygen, continue nocturnal BiPAP Haemophilus influenzae pneumonia-completed antibiotics 13 mm left upper lobe lung nodule short-term follow-up CAT scan to monitor for stability COPD with acute exacerbation-most recent PFTs from 2019 where her FEV1 was 30% predicted suggesting severe obstructive ventilatory defect bronchodilators/steroids History of obstructive sleep apnea, outpatient polysomnogram History of tobacco abuse quit 6 months ago Advance Directive: Full Code Discharge planning: TBD Case discussed with nurse and patient Questions and concerns addressed. Images from the original note were not included. [facility] [place], Pulmonary Medicine [address] [place] [id number] Patient - Kendra Buitrago, Age - 63 y.o. - 1960 Room Number - B2-244/B2-244 A Consulting - Ronaldo Barr MD Primary Care Physician - Vu Mullins MD Date of Admission - 10/31/2023 4:24 PM Hospital Day - 7 Chief Complaint Kendra Buitrago is a 63 y.o. 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 Interval History Patient feeling better today FiO2 has been weaned down to 6 L saturation 94% Able to sleep with BiPAP Arterial blood gas interpreted by ok pH 7.35 pCO2 of 80 pO2 of 70 Showing persistent hypercapnia and relative hypoxemia Initial ABG showed hypoxemia hypercapnia with a pH 7.28 pCO2 of 88 admitted to the ICU Treated with NIV IV steroid antibiotics which was transitioned to high flow nasal cannula Transferred to the floor with pulmonary follow-up Patient does follow-up with her dredge master as an outpatient Dr. Mackenzie She had a CAT scan in May 2022 Emphysema No reported lung nodule PFT 2018 FEV1 30% On this admission CT chest did show lung nodule left-sided as well as right-sided upper lobe Patient currently on 10 L salter Using IV last night however not very comfortable with it however just said that if she needed-she is willing to try She does have a history of obstructive sleep apnea however never treated with any PAP therapy All other systems reviewed Objective Vitals: BP (!) 188/93 Pulse 84 Temp 36.3 C (97.3 F) (Temporal) Resp 17 Ht 5' 7 (1.702 m) Wt 194 lb 14.2 oz (88.4 kg) SpO2 94% BMI 30.52 kg/m Pulse Ox: SpO2 Av.5 % Min: 92 % Max: 97 % Supplemental O2: O2 Flow Rate (L/min): 6 L/min I/O 24HR INTAKE/OUTPUT: No intake or output data in the 24 hours ending 11/07/23 1020 Exam General appearance: Resting on recliner chair HEENT: Normocephalic, atraumatic. No scleral icterus, no right/left eye discharge. Conjunctivae normal. Pupils equal round and reactive to light. Right external ear normal, Left external ear normal. No congestion. Mouth: mucous membranes moist. Pharynx, Oropharynx is clear. No oropharyngeal exudate. Neck: ROM normal, No thyromegaly. No cervical lymphadenopathy Cardiovascular: Regular rate and rhythm. Heart sounds normal. Negative for murmur, friction rub or gallop. Pulmonary: Markedly decreased breath sound with fine crackles bases posteriorly No wheezing appreciated Abdomen: Soft, no distention, no abdominal tenderness. No guarding. No masses. Musculoskeletal: ROM normal, Negative for swelling, tenderness or deformity. Skin: Warm and dry. Skin is not jaundiced. No rash Extremities: No clubbing, cyanosis, or extremity edema Neurological: No focal deficits. Alert and oriented x person, place and time. Mental status is at baseline. No motor weakness. Psychiatric: Mood, behavior, thought content normal. Cooperative with exam. Medications Current Medications budesonide, 0.5 mg, Nebulization, BID cefTRIAXone, 1,000 mg, IntraVENous, q24h enoxaparin, 40 mg, SubCUTAneous, Daily ipratropium-albuterol, 3 mL, Nebulization, 4x daily [START ON 11/08/2023] lisinopril, 20 mg, Oral, Daily melatonin, 5 mg, Oral, Nightly pantoprazole, 40 mg, Oral, Nightly Or pantoprazole (ProtoNix) 40 mg in sodium chloride (PF) 0.9 % 10 mL injection, 40 mg, IntraVENous, Nightly predniSONE, 30 mg, Oral, Daily sennosides, 1 tablet, Oral, Nightly sertraline, 100 mg, Oral, Daily PRN Mediations PRN medications: acetaminophen, albuterol, bisacodyl, guaiFENesin, ondansetron ODT OR ondansetron, oxymetazoline, sodium chloride IV Drips/Infusions Labs CBC Results from last 7 days Lab Units 11/07/23 0123 WBC AUTO 10*3/uL 10.3 HEMOGLOBIN g/dL 12.9 HEMATOCRIT % 41.3 PLATELETS AUTO 10*3/uL 238 BMP: Results from last 7 days Lab Units 11/07/23 0123 11/06/23 0334 11/05/23 0319 SODIUM mmol/L 136 140 141 POTASSIUM mmol/L 4.2 4.3 5.0 CHLORIDE mmol/L 94* 96* 96* CO2 mmol/L 38* 39* 37* BUN mg/dL 31* 35* 39* CREATININE mg/dL 0.57 0.63 0.61 GLUCOSE mg/dL 176* 137* 293* CALCIUM mg/dL 8.6 9.0 9.1 ABG: Results from last 7 days Lab Units 11/05/23 0606 11/01/23 0355 10/31/23 1944 10/31/23 1637 POCT PH, ARTERIAL pH 7.350 7.321* 7.280* -- POCT PCO2, ARTERIAL mm Hg 80.9* 82.5* 88.3* -- POCT PO2, ARTERIAL mm Hg 78.3* 65.1* 64.0* -- POCT HCO3, ARTERIAL mmol/L 44.7* 42.6* 41.5* -- POCT BASE EXCESS, ARTERIAL mmol/L 14.8* 11.8* 9.5* -- SOURCE OF OXYGEN -- -- -- Bi-PAP LIVER PROFILE Results from last 7 days Lab Units 11/07/23 0123 11/06/23 0334 11/05/23 0319 ALK PHOS U/L 52 53 56 BILIRUBIN TOTAL mg/dL 0.5 0.4 0.4 PROTEIN TOTAL g/dL 5.5* 5.9* 5.9* ALT U/L 32 40* 44* AST U/L 19 19 21 INR PTT No results found for: PTT Cultures PCR positive for haemophilus influenza coronavirus Radiology Patient Name: KENDRA BUITRAGO : 1960 Exam Date/Time: 11/02/2023 08:29 Procedure: CT CHEST WO IV CONTRAST Ordering Provider: PHIPPS MICHAEL Reason For Exam: Diffuse/interstitial lung disease CT CHEST CLINICAL INDICATION: Diffuse interstitial lung disease. TECHNIQUE: Transaxial sequence from apices through the bases Coronal and sagittal reconstructions included. Dose reduction was employed with automated exposure control. Contrast:None Additional technique:None COMPARISON: None. FINDINGS: Airway:No definite acute process. Lungs: Fibrotic appearing changes. Left upper lobe infiltrate density. 13 mm left upper lobe nodule. 7 mm right upper lobe nodule. Scarring or atelectasis both lung bases. Large bleb or bolus changes right lower lobe. Pleura: No definite effusion or pneumothorax.. Heart/Great vessels: Mild to moderate atherosclerotic calcifications. Mild cardiac enlargement. Mediastinum/Chary: No mass or enlarged lymph nodes identified. Chest wall and lower neck: No convincing acute process.. Upper abdomen: No convincing acute process. Liver cyst. Osseous structures: No convincing acute process.. IMPRESSION: Abnormal lungs. Suspected infiltrate left upper lobe. Please correlate clinically. Pulmonary nodules up to 13 mm. Scarring or atelectasis bilaterally. Cardiac enlargement and atherosclerosis.. Follow-up recommended. Active Hospital Problem List Patient Active Problem List Diagnosis History of tobacco abuse Anxiety Posterior capsular opacification visually significant, left eye Hypertriglyceridemia COPD (chronic obstructive pulmonary disease) (HCC) COPD with acute exacerbation (HCC) Hypertension Episode of recurrent major depressive disorder (HCC) Chronic hypoxemic respiratory failure (HCC) Hepatic cyst Type 2 diabetes mellitus without complication, without long-term current use of insulin (CMS/HCC) (HCC) COPD exacerbation (HCC) Swelling of left foot Dependent edema Respiratory failure (HCC) Assessment and Plan -Acute on chronic combined hypoxic hypercapnic respiratory failure -Haemophilus influenzae pneumonia/with coronavirus respiratory infection -Acute exacerbation of chronic obstructive pulmonary disease underlying severe emphysematous lung disease -13 mm lung nodule left upper lobe -History of heavy smoking more than [id number] for smoking quit 6 months ago -History of obstructive sleep apnea however never tried PAP therapy -Patient suffers from acute on chronic hypoxic and hypercarbic respiratory failure secondary to her underlying severe COPD FEV1 30% predicted. Alternative modes of ventilation, such as Bipap with a rate, have been tried and failed as evidenced by persistent/ significant hypercarbia. Patient requires NIV, with volume targeted modes that Bipap cannot provide in order to prevent elevated CO2 levels, altered mental status and possible . Patient is at increased risk of continued exacerbations and hospital readmissions without NIV therapy. Patient with severe underlying emphysematous lung disease with exacerbation secondary to pneumonia viral infection now with hypercapnia severe hypoxemia continue IV antibiotics Tapering dose of his steroid Maximization of bronchodilator therapy She does have left upper lobe lung nodule new since last CAT scan in May 2022 Last PFT available 2018 FEV1 30% severe obstructive disease Will need repeat PFT to assess the current pulmonary status Will get the patient follow-up in pulmonary office with follow-up PFT and assessment for any further workup for her lung nodule in view of severe end-stage emphysematous lung disease Patient will likely benefit from NIV therapy in view of severe end-stage COPD hypercapnia Slow improvement with end-stage lung disease pneumonia hypoxic hypercapnic respiratory failure severe hypoxemia Encourage patient to use NIV more also during the daytime with napping Continues to improve albeit slowly we will continue to actively wean off FiO2 to at least the baseline of 4 L Advance Directive: Full Code Case discussed with nurse and patient/ Questions and concerns addressed. Portions of the information within this encounter were entered using an electronic dictation system. Best attempts were made to edit/proofread the information prior to note completion. Despite the review of information, some errors may remain. If there are questions related to the information contained within the note please contact the signing provider directly. Hospitalist Progress Note 11/07/[id number]: Please page ok ([phone]) for patient care issues. [phone]: Please page [facility] Hospitalist for any issues. Subjective: Admit Date: 10/31/2023 PCP: Vu Mullins MD Room#: [facility] A Interval History: No overnight issues. Denies chest pain but is a little sob. SOB worse with exertion. No abdominal pain, nausea, vomiting. No fevers or chills. Adult diet Regular @[id number]@ 24HR INTAKE/OUTPUT: No intake or output data in the 24 hours ending 11/07/23 0917 Past Medical History: Past Medical History: Diagnosis Date COPD (chronic obstructive pulmonary disease) (HCC) Hypertension Polyp at cervical os SOB (shortness of breath) Tobacco abuse Tobacco abuse counseling LABS: CBC: Recent Labs 11/05/2331811/06/23 0334 11/07/23 0123 WBC 8.8 10.5 10.3 RBC 4.27 4.37 4.23 HGB 12.7 13.1 12.9 HCT 42.4 43.1 41.3 MCV 99.3* 98.6 97.6 RDW 12.8 12.7 12.6 PLT 251 254 238 BMP: Recent Labs 11/05/2331811/06/23 0334 11/07/23 0123 NA 141 140 136 K 5.0 4.3 4.2 CL 96* 96* 94* CO2 37* 39* 38* BUN 39* 35* 31* CREATININE 0.61 0.63 0.57 GLUCOSE 293* 137* 176* CALCIUM 9.1 9.0 8.6 ANIONGAP 8 5 4 LIVER PROFILE: Recent Labs 11/05/23 0319 11/06/23 0334 11/07/23 0123 AST 21 19 19 ALT 44* 40* 32 BILITOT 0.4 0.4 0.5 ALKPHOS 56 53 52 PROT 5.9* 5.9* 5.5* PT/INR: No results for input(s): PROTIME, INR in the last 72 hours. CARDIAC ENZYMES: No results for input(s): TROPONINI in the last 72 hours. Procalcitonin: No results found for: PROCAL COVID-19 PCR: No results for input(s): COVID19 in the last 72 hours. Objective: Vitals: BP (!) 188/93 Pulse 84 Temp 36.3 C (97.3 F) (Temporal) Resp 17 Ht 5' 7 (1.702 m) Wt 194 lb 14.2 oz (88.4 kg) SpO2 94% BMI 30.52 kg/m Pulse Ox: SpO2 Av.5 % Min: 92 % Max: 97 % Supplemental O2: O2 Flow Rate (L/min): 6 L/min General appearance: No apparent distress, appears stated age, HEENT: Eyes: No scleral icterus Oral: Tongue is semi-moist Cardiovascular: S1/S2 heard, RRR Respiratory: decreased but clear, no wheezing Abdomen: Soft, non-tender, non-distended bowel sounds positive Musculoskeletal: No obvious deformities seen Skin: No visible rashes or lesions. Medications: budesonide, 0.5 mg, Nebulization, BID cefTRIAXone, 1,000 mg, IntraVENous, q24h enoxaparin, 40 mg, SubCUTAneous, Daily ipratropium-albuterol, 3 mL, Nebulization, 4x daily [START ON 11/08/2023] lisinopril, 20 mg, Oral, Daily melatonin, 5 mg, Oral, Nightly pantoprazole, 40 mg, Oral, Nightly Or pantoprazole (ProtoNix) 40 mg in sodium chloride (PF) 0.9 % 10 mL injection, 40 mg, IntraVENous, Nightly predniSONE, 30 mg, Oral, Daily sennosides, 1 tablet, Oral, Nightly sertraline, 100 mg, Oral, Daily Assessment # Acute on Chronic Respiratory Failure with Hypoxia and Hypercapnia (previously on 4LNC chronically) - on high flow NC O2. Wean as able. Continue autobipap at night with nasal pillows as recommended per pulm/crit. Continue chest PT and incentive spirometer to assist with atelectasis. Continue guaifenesin to assist with clearance of secretions. # Acute exacerbation of COPD in setting of severe COPD/Emphysema - continue steroids/breathing tx. # H. Influenza + coronavirus PNA - continue rocephin IV and supportive tx. # Leukocytosis # Polycythemia suspect chronic from chronic hypoxia # Elevated troponin likely due to demand ischemia # DM type 2 with hyperglycemia # Chronic HTN - resumed lisinopril but held HCTZ # Obesity (BMI 30.28) Plan - Continue HFNC, wean as able. Pulmonary following and recommending LTAC. TCC/SW making referral. - add 3% sodium nebulized - Continue Ceftriaxone. - continue chest PT and incentive spirometer to assist with atelectasis. Continue guaifenesin to assist with clearance of secretions. - continue steroids and breathing tx. - continue autoBiPAP at bedtime and with naps. - resumed lisinopril but hold home hydrochlorothiazide. - PT/OT - check daily labs Extended Emergency Contact Information Primary Emergency Contact: Chidi Buitrago Relation: Spouse Ronaldo Barr MD Division of Hospitalist Medicine Inpatient Medical Services/[facility] PAGER: Epic chat Images from the original note were not included. OCCUPATIONAL THERAPY [facility] Treatment Note Name/MRN: Ember Buitrago ([id number]) Date of : 1960 Age: 63 y.o. Room/Bed: B2-244/B2-244 A Visit #: 3 out of 7 visits Discharge Recommendation: Home with Home health OT, Home with assist PRN Prior Level of Function ADL Assistance: Independent Ambulation Assistance: Independent Transfer Assistance: Independent Assessment Pt in bed upon arrival, agreeable to OT tx. Pt was Mod I for bed-mobility, SBA for STS without use of device, pt completed functional mobility with SBA, toileting at SBA along with functional transfers. Pt completed grooming interventions at SBA but no hands on assist required. Pt on 7L d/t tank limitations pt on 8 L during mobility SpO2: 92-93 while sitting/rest, desat to 87-88 during mobility. Educated pt on EC techniques with pursed lip and diaphragmatic breathing. Pt is progressing with POC but is still below baseline and is a fall risk. Pt would benefit from continued OT to improve activity tolerance, balance, and strength needed for improved occupational performance. Pt is recommended for [facility] OT at D/C Subjective Ok to see for therapy Pain: Pt denies any current pain. Medical Precautions: Droplet Proper PPE donned/doffed in accordance with facility standards. Fall Risk: Orellana Fall Risk Score: 35 (Medium Risk) Precautions/Restrictions: N/A Family/Caregiver Present: none Objective ADLs Grooming: SBA Toileting: SBA Pt completed grooming interventions at sink without use of device at SBA for safety to monitor balance d/t decreased strength/endurance but no true LOB noted. Pt completed toileting interventions with SBA for safety with balance but no hands on assist required. Bed Mobility Supine to sit: Modified Independent Sit to supine: Modified Independent Scooting: Modified Independent HOB slightly elevated with use of bed-rails. No hands on assist required or reports of dizziness. Transfers/Mobility Sit to stand: SBA Stand to sit: SBA Stand step: SBA Standing balance: SBA Functional mobility: SBA Toilet transfer: SBA Pt completed multiple STS from EOB to standing without use of device and SBA to monitor balance, no true LOB noted just decreased endurance. Spo2 monitored at 87-88 with mobility. Pt completed standing balance at sink with SBA for safety and hand on counter PRN, no hands on assist required. Pt completed stand step transfer to EOB with SBA for controlled descent and good awareness of O2 line mgmnt. Pt completed bedroom mobility without use of device, slow/cautious steps with mobility and SBA for safety. Pt completed standard toilet transfer with SBA to monitor balance, noted proper use of grab bar and able to manage oxygen tank. Device(s) used: hospital bed and oxygen Cognition WFL Plan Continue acute OT per plan of care. Safety/Education Safety Safety Devices in place: All fall risk precautions in place, call light within reach, left in bed, gait belt, nurse notified, and no alarms engaged upon entry Restraints: No Education Education Given To: patient Education Provided: OT Role, Plan of Care, ADL Adaptive Strategies, Transfer Training, Low Vision Education, Fall Prevention Education, Discharge Recommendations, Benefits of Increasing Activity, and Breathing Techniques Education Method: Verbal, Demonstration, and Teach Back Barriers to Learning: None Education Outcome: Verbalized Understanding and Demonstrated Understanding AM-PAC AM-PAC Inpatient Daily Activity Raw Score: 21 ADL Inpatient CMS G-Code Modifier: CJ Goals Patient Stated Goal: to go home Encounter Problems Encounter Problems (Active) Balance Patient will tolerate standing for 3 minutes mod I at LRD to allow increased independence in ADLs. (Progressing) Start: 11/02/23 Expected End: 11/16/23 Dressing Upper Extremities Patient will complete upper body ADLs mod I. (Progressing) Start: 11/02/23 Expected End: 11/16/23 Dressings Lower Extremities Patient will complete lower body ADLs mod I. (Not Addressed) Start: 11/02/23 Expected End: 11/16/23 Mobility Patient will demonstrate functional ambulation mod I with LRD. (Progressing) Start: 11/02/23 Expected End: 11/16/23 Transfers Patient will complete functional transfer with least restrictive device with modified independence in order to prepare for ambulation. (Progressing) Start: 11/02/23 Expected End: 11/16/23 Encounter Problems (Resolved) Toileting Patient will complete toileting tasks at standard toilet with modified independence. (Goal Met) Start: 11/02/23 Expected End: 11/16/23 Resolved: 11/05/23 Therapy Time Individual Co-treatment Time In 1302 Time Out 1328 Minutes 26 Timed Code Treatment Minutes: 26 Minutes (1 ADL, 1 ACT) LULU Santos Images from the original note were not included. PHYSICAL THERAPY [facility] Treatment Note Name/MRN: Ember Buitrago ([id number]) Date of : 1960 Age: 63 y.o. Room/Bed: B2-244/B2-244 A Visit #: 1 out of 8 visits Discharge Recommendation: Home with Home health PT, Home with assist PRN Equipment Needed: No Other: pending progess may need a FWW vs. rollator Prior Level of Function ADL Assistance: Independent Ambulation Assistance: Independent Device(s) used: none Transfer Assistance: Independent Assessment Patient progressing well with function mobility. Patient bed mobility supine-sit mod I. Transfers sit-stand with supervision, ambulated with no device 200 ft x2 with SBA. Patient SpO2 88% after gait with 7 LO2 and ~ 1-2mins 90%. Pt will continue to benefit from skilled PT services to improve function and independence with focus on endurance and dynamic balance. Recommend HHC with PRN assist at discharge. Subjective Willing to participate in PT SpO2 88% Return to >90% after 1 min rest after initial ambulation. BP: 128/66 Pain: Pt denies any current pain. Medical Precautions: Droplet Proper PPE donned/doffed in accordance with facility standards. Fall Risk: Orellana Fall Risk Score: 35 (Medium Risk) Precautions/Restrictions:7 L02 Overall Cognitive Status: WNL Overall Orientation Status: Oriented x4 Family/Caregiver Present: none Objective Ambulation Ambulation 1 Assistive device(s) used: none Assist level: SBA Distance (ft): 200 FT Quality of gait: No LOB, reciprocal stepping, equal step length Transfers/Mobility Sit to stand: Supervision Stand to sit: Supervision Device(s) used: none Exercises Exercises Straight Leg Raise: 2sets/15reps BLE Hip Flexion: Seated 2sets/15reps BLE AROM Hip Abduction: 2sets/15reps BLE Knee Long Arc Quad: 2sets/15reps BLE Knee Short Arc Quad: 2sets/15reps BLE Bed Mobility Supine to sit: Modified Independent Sit to supine: Modified Independent Balance: good- Posture: good Sitting - Static: Modified Independent Sitting - Dynamic: Modified Independent Standing - Static: Supervision Standing - Dynamic: SBA Plan Continue acute PT per plan of care. Safety/Education Safety Safety Devices in place: call light within reach, left in chair, gait belt, patient at risk for falls, nurse notified, and no alarms engaged upon entry Restraints: No Education Education Given To: patient Education Provided: PT Role, PT Goals, Gait Training, Plan of Care, Transfer Training, Energy Conservation, and Discharge Recommendations Education Method: Verbal and Demonstration Barriers to Learning: None Education Outcome: Continued Education Needed Outcome Measures AM-PAC AM-PAC Inpatient Mobility Raw Score (No Stairs) : 17 Goals Patient Stated Goal: Patient states she wants to get better and get home. Encounter Problems Encounter Problems (Active) Balance Patient will maintain dynamic standing balance for 5 minutes with modified independence in order to demonstrate decreased risk of falling. (Progressing) Start: 11/02/23 Expected End: 11/09/23 Exercise Patient will complete lower extremity exercises for 1-2 sets / 10 reps in order to improve strength and activity tolerance for mobility. (Progressing) Start: 11/02/23 Expected End: 11/09/23 Mobility Patient will ambulate 100 feet with modified independence and least restrictive device in order to improve safety and independence with mobility. (Progressing) Start: 11/02/23 Expected End: 11/09/23 Patient will ascend and descend 3 stairs with one railing and supervision in order to safely negotiate home. (Not Addressed) Start: 11/02/23 Expected End: 11/09/23 Transfers Patient will perform bed mobility with modified independence in order to improve independence and prepare for out of bed mobility. (Adequate for Discharge) Start: 11/02/23 Expected End: 11/09/23 Patient will complete functional transfers with least restrictive device with modified independence in order to prepare for ambulation. (Progressing) Start: 11/02/23 Expected End: 11/09/23 Therapy Time Individual Co-treatment Time In 1020 Time Out 1045 Minutes 25 Timed Code Treatment Minutes: 24 Minutes (THER EX AND GAIT) Jozef Rollins PT Hospitalist Progress Note 11/06/[phone]: Please page me [phone]) for patient care issues. [phone]: Please page [facility] Hospitalist for any issues. Subjective: Admit Date: 10/31/2023 PCP: Vu Mullins MD Room#: B2-244/B2-244 A Interval History: No overnight issues. Denies chest pain and states currently she is not too sob. She is sob however with some exertion. No abdominal pain, nausea, vomiting. No fevers or chills. Adult diet Regular @[id number]@ 24HR INTAKE/OUTPUT: Intake/Output Summary (Last 24 hours) at 11/06/2023 1124 Last data filed at 11/06/2023 0339 Gross per 24 hour Intake 500 ml Output -- Net 500 ml Past Medical History: Past Medical History: Diagnosis Date COPD (chronic obstructive pulmonary disease) (HCC) Hypertension Polyp at cervical os SOB (shortness of breath) Tobacco abuse Tobacco abuse counseling LABS: CBC: Recent Labs 11/04/2344011/05/2331811/06/23 033 WBC 8.5 8.8 10.5 RBC 4.40 4.27 4.37 HGB 13.4 12.7 13.1 HCT 43.2 42.4 43.1 MCV 98.2 99.3* 98.6 RDW 12.5 12.8 12.7 PLT 274 251 254 BMP: Recent Labs 11/04/2344011/05/2331811/06/23 033 NA 139 141 140 K 5.1 5.0 4.3 CL 98 96* 96* CO2 36* 37* 39* BUN 38* 39* 35* CREATININE 0.73 0.61 0.63 GLUCOSE 266* 293* 137* CALCIUM 9.0 9.1 9.0 ANIONGAP 5 8 5 LIVER PROFILE: Recent Labs 11/04/2344011/05/2331811/06/23 033 AST 23 21 19 ALT 46* 44* 40* BILITOT 0.4 0.4 0.4 ALKPHOS 55 56 53 PROT 6.2* 5.9* 5.9* PT/INR: No results for input(s): PROTIME, INR in the last 72 hours. CARDIAC ENZYMES: No results for input(s): TROPONINI in the last 72 hours. Procalcitonin: No results found for: PROCAL COVID-19 PCR: No results for input(s): COVID19 in the last 72 hours. Objective: Vitals: BP (!) 165/81 Pulse 84 Temp 36.8 C (98.2 F) (Temporal) Resp 20 Ht 5' 7 (1.702 m) Wt 194 lb 14.2 oz (88.4 kg) SpO2 95% BMI 30.52 kg/m Pulse Ox: SpO2 Av.6 % Min: 89 % Max: 95 % Supplemental O2: O2 Flow Rate (L/min): 7 L/min General appearance: No apparent distress, appears stated age, HEENT: Eyes: No scleral icterus Oral: Tongue is semi-moist Cardiovascular: S1/S2 heard, RRR Respiratory: a little decreased but clear, no wheezing Abdomen: Soft, non-tender, non-distended bowel sounds positive Musculoskeletal: No obvious deformities seen Skin: No visible rashes or lesions. Medications: budesonide, 0.5 mg, Nebulization, BID cefTRIAXone, 1,000 mg, IntraVENous, q24h enoxaparin, 40 mg, SubCUTAneous, Daily ipratropium-albuterol, 3 mL, Nebulization, 4x daily melatonin, 5 mg, Oral, Nightly pantoprazole, 40 mg, Oral, Nightly Or pantoprazole (ProtoNix) 40 mg in sodium chloride (PF) 0.9 % 10 mL injection, 40 mg, IntraVENous, Nightly predniSONE, 30 mg, Oral, Daily sennosides, 1 tablet, Oral, Nightly sertraline, 100 mg, Oral, Daily Assessment # Acute on Chronic Respiratory Failure with Hypoxia and Hypercapnia (previously on 4LNC chronically) - on high flow NC O2. Wean as able. Continue autobipap at night with nasal pillows as recommended per pulm/crit. Continue chest PT and incentive spirometer to assist with atelectasis. Continue guaifenesin to assist with clearance of secretions. # Acute exacerbation of COPD in setting of severe COPD/Emphysema - continue steroids/breathing tx. # H. Influenza + coronavirus PNA - continue rocephin IV and supportive tx. # Leukocytosis # Polycythemia suspect chronic from chronic hypoxia # Elevated troponin likely due to demand ischemia # DM type 2 with hyperglycemia # Chronic HTN - resumed lisinopril but held HCTZ # Obesity (BMI 30.28) Plan - Continue HFNC, wean as able. Pulmonary following and recommending LTAC. TCC/SW making referral. - Continue Ceftriaxone. - continue chest PT and incentive spirometer to assist with atelectasis. Continue guaifenesin to assist with clearance of secretions. - continue steroids and breathing tx. - continue autoBiPAP at bedtime and with naps. - resume lisinopril but hold HCTZ - PT/OT - check daily labs Extended Emergency Contact Information Primary Emergency Contact: Chidi Buitrago Relation: Spouse Ronaldo Barr MD Division of Hospitalist Medicine Inpatient Medical Services/[facility] [place]AGER: Epic chat Images from the original note were not included. [facility] [place], Pulmonary Medicine [address] [place] [address] Patient - Kendra Buitrago, Age - 63 y.o. - 1960 Room Number - B2-244/B2-244 A Consulting - Ronaldo Barr MD Primary Care Physician - [id number] Date of Admission - 10/31/2023 4:24 PM Hospital Day - 6 Chief Complaint Kendra Buitrago is a 63 y.o. 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 On 7 L heated high flow No chest pain no fever no chills no rigor Did use NIV last night Arterial blood gas this morning interpreted by me pH 7.35 pCO2 of 80 pO2 of 70 Showing persistent hypercapnia and relative hypoxemia Initial ABG showed hypoxemia hypercapnia with a pH 7.28 pCO2 of 88 admitted to the ICU Treated with NIV IV steroid antibiotics which was transitioned to high flow nasal cannula Transferred to the floor with pulmonary follow-up Patient does follow-up with her dredge master as an outpatient Dr. Mackenzie She had a CAT scan in May 2022 Emphysema No reported lung nodule PFT 2018 FEV1 30% On this admission CT chest did show lung nodule left-sided as well as right-sided upper lobe Patient currently on 10 L salter Using IV last night however not very comfortable with it however just said that if she needed-she is willing to try She does have a history of obstructive sleep apnea however never treated with any PAP therapy All other systems reviewed Objective Vitals: BP (!) 165/81 (BP Location: Right arm, Patient Position: Lying) Pulse 78 Temp 36.9 C (98.4 F) (Temporal) Resp 18 Ht 5' 7 (1.702 m) Wt 194 lb 14.2 oz (88.4 kg) SpO2 94% BMI 30.52 kg/m Pulse Ox: SpO2 Av.3 % Min: 89 % Max: 95 % Supplemental O2: O2 Flow Rate (L/min): 7 L/min I/O 24HR INTAKE/OUTPUT: Intake/Output Summary (Last 24 hours) at 11/06/2023 0897 Last data filed at 11/06/2023 0339 Gross per 24 hour Intake 500 ml Output -- Net 500 ml Exam General appearance: Awake and alert HEENT: Normocephalic, atraumatic. No scleral icterus, no right/left eye discharge. Conjunctivae normal. Pupils equal round and reactive to light. Right external ear normal, Left external ear normal. No congestion. Mouth: mucous membranes moist. Pharynx, Oropharynx is clear. No oropharyngeal exudate. Neck: ROM normal, No thyromegaly. No cervical lymphadenopathy Cardiovascular: Regular rate and rhythm. Heart sounds normal. Negative for murmur, friction rub or gallop. Pulmonary: Markedly decreased breath sound with fine crackles bases posteriorly No wheezing appreciated Abdomen: Soft, no distention, no abdominal tenderness. No guarding. No masses. Musculoskeletal: ROM normal, Negative for swelling, tenderness or deformity. Skin: Warm and dry. Skin is not jaundiced. No rash Extremities: No clubbing, cyanosis, or extremity edema Neurological: No focal deficits. Alert and oriented x person, place and time. Mental status is at baseline. No motor weakness. Psychiatric: Mood, behavior, thought content normal. Cooperative with exam. Medications Current Medications budesonide, 0.5 mg, Nebulization, BID cefTRIAXone, 1,000 mg, IntraVENous, q24h enoxaparin, 40 mg, SubCUTAneous, Daily ipratropium-albuterol, 3 mL, Nebulization, 4x daily melatonin, 5 mg, Oral, Nightly pantoprazole, 40 mg, Oral, Nightly Or pantoprazole (ProtoNix) 40 mg in sodium chloride (PF) 0.9 % 10 mL injection, 40 mg, IntraVENous, Nightly predniSONE, 30 mg, Oral, Daily sennosides, 1 tablet, Oral, Nightly sertraline, 100 mg, Oral, Daily PRN Mediations PRN medications: acetaminophen, albuterol, bisacodyl, guaiFENesin, ondansetron ODT OR ondansetron, oxymetazoline, sodium chloride IV Drips/Infusions Labs CBC Results from last 7 days Lab Units 11/06/23 0334 WBC AUTO 10*3/uL 10.5 HEMOGLOBIN g/dL 13.1 HEMATOCRIT % 43.1 PLATELETS AUTO 10*3/uL 254 BMP: Results from last 7 days Lab Units 11/06/23 0334 11/05/2331811/04/23 0441 SODIUM mmol/L 140 141 139 POTASSIUM mmol/L 4.3 5.0 5.1 CHLORIDE mmol/L 96* 96* 98 CO2 mmol/L 39* 37* 36* BUN mg/dL 35* 39* 38* CREATININE mg/dL 0.63 0.61 0.73 GLUCOSE mg/dL 137* 293* 266* CALCIUM mg/dL 9.0 9.1 9.0 ABG: Results from last 7 days Lab Units 11/05/23 0606 11/01/23 0355 10/31/23 19410/31/23 1637 POCT PH, ARTERIAL pH 7.350 7.321* 7.280* -- POCT PCO2, ARTERIAL mm Hg 80.9* 82.5* 88.3* -- POCT PO2, ARTERIAL mm Hg 78.3* 65.1* 64.0* -- POCT HCO3, ARTERIAL mmol/L 44.7* 42.6* 41.5* -- POCT BASE EXCESS, ARTERIAL mmol/L 14.8* 11.8* 9.5* -- SOURCE OF OXYGEN -- -- -- Bi-PAP LIVER PROFILE Results from last 7 days Lab Units 11/06/23 03311/05/2331811/04/23 0441 ALK PHOS U/L 53 56 55 BILIRUBIN TOTAL mg/dL 0.4 0.4 0.4 PROTEIN TOTAL g/dL 5.9* 5.9* 6.2* ALT U/L 40* 44* 46* AST U/L 19 21 23 INR PTT No results found for: PTT Cultures PCR positive for haemophilus influenza coronavirus Radiology Patient Name: KENDRA BUITRAGO : 1960 Exam Date/Time: 11/02/2023 08:29 Procedure: CT CHEST WO IV CONTRAST Ordering Provider: PHIPPS MICHAEL Reason For Exam: Diffuse/interstitial lung disease CT CHEST CLINICAL INDICATION: Diffuse interstitial lung disease. TECHNIQUE: Transaxial sequence from apices through the bases Coronal and sagittal reconstructions included. Dose reduction was employed with automated exposure control. Contrast:None Additional technique:None COMPARISON: None. FINDINGS: Airway:No definite acute process. Lungs: Fibrotic appearing changes. Left upper lobe infiltrate density. 13 mm left upper lobe nodule. 7 mm right upper lobe nodule. Scarring or atelectasis both lung bases. Large bleb or bolus changes right lower lobe. Pleura: No definite effusion or pneumothorax.. Heart/Great vessels: Mild to moderate atherosclerotic calcifications. Mild cardiac enlargement. Mediastinum/Chary: No mass or enlarged lymph nodes identified. Chest wall and lower neck: No convincing acute process.. Upper abdomen: No convincing acute process. Liver cyst. Osseous structures: No convincing acute process.. IMPRESSION: Abnormal lungs. Suspected infiltrate left upper lobe. Please correlate clinically. Pulmonary nodules up to 13 mm. Scarring or atelectasis bilaterally. Cardiac enlargement and atherosclerosis.. Follow-up recommended. Active Hospital Problem List Patient Active Problem List Diagnosis History of tobacco abuse Anxiety Posterior capsular opacification visually significant, left eye Hypertriglyceridemia COPD (chronic obstructive pulmonary disease) (HCC) COPD with acute exacerbation (HCC) Hypertension Episode of recurrent major depressive disorder (HCC) Chronic hypoxemic respiratory failure (HCC) Hepatic cyst Type 2 diabetes mellitus without complication, without long-term current use of insulin (CMS/HCC) (HCC) COPD exacerbation (HCC) Swelling of left foot Dependent edema Respiratory failure (HCC) Assessment and Plan -Acute on chronic combined hypoxic hypercapnic respiratory failure -Haemophilus influenzae pneumonia/with coronavirus respiratory infection -Acute exacerbation of chronic obstructive pulmonary disease underlying severe emphysematous lung disease -13 mm lung nodule left upper lobe -History of heavy smoking more than [id number] for smoking quit 6 months ago -History of obstructive sleep apnea however never tried PAP therapy -Patient suffers from acute on chronic hypoxic and hypercarbic respiratory failure secondary to her underlying severe COPD FEV1 30% predicted. Alternative modes of ventilation, such as Bipap with a rate, have been tried and failed as evidenced by persistent/ significant hypercarbia. Patient requires NIV, with volume targeted modes that Bipap cannot provide in order to prevent elevated CO2 levels, altered mental status and possible . Patient is at increased risk of continued exacerbations and hospital readmissions without NIV therapy. Patient with severe underlying emphysematous lung disease with exacerbation secondary to pneumonia viral infection now with hypercapnia severe hypoxemia continue IV antibiotics Tapering dose of his steroid Maximization of bronchodilator therapy She does have left upper lobe lung nodule new since last CAT scan in May 2022 Last PFT available 2019 FEV1 30% severe obstructive disease Will need repeat PFT to assess the current pulmonary status Will get the patient follow-up in pulmonary office with follow-up PFT and assessment for any further workup for her lung nodule in view of severe end-stage emphysematous lung disease Patient will likely benefit from NIV therapy in view of severe end-stage COPD hypercapnia Slow improvement with end-stage lung disease pneumonia hypoxic hypercapnic respiratory failure severe hypoxemia Encourage patient to use NIV more also during the daytime with napping Advance Directive: Full Code Case discussed with nurse and patient/ Questions and concerns addressed. Portions of the information within this encounter were entered using an electronic dictation system. Best attempts were made to edit/proofread the information prior to note completion. Despite the review of information, some errors may remain. If there are questions related to the information contained within the note please contact the signing provider directly. Nutrition Assessment Type and Reason for Visit: Reassess (pt reports eating well- declines need for ONS) Nutrition Recommendations/Plan: Suggest to continue a regular diet to promote intake- patient denies need for supplement or dietary change ( lower carbohydrate )-states not diabetic . Please document PO intakes consistently in the flowsheet to better assess intake adequacy. Suggest standing scale weight as feasible. RDN to continue to monitor weekly: fluid accumulation, weight, skin integrity, trends in lab values, tolerance of PO diet, improvement in clinical status, discharge planning.nutrition Status: Malnutrition Assessment: Mal.nutrition Status: At risk for malnutrition (Comment) (end stage disease) Context: Acute Illness Findings of the 6 clinical characteristics of malnutrition: Energy Intake: Mild decrease in energy intake (Comment) Weight Loss: Unable to assess (doubt wt loss ?-possibe scale error?) Body Fat Loss: No significant body fat loss Muscle Mass Loss: No significant muscle mass loss Fluid Accumulation: Mild Extremities Respiratory Therapy Technician Strength: 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.Patient remained profoundly hypoxic currently on 7 L high flow nasal cannula with use NIV last night.Initial ABG showed hypoxemia hypercapnia with a pH 7.28 pCO2 of 88 admitted to the ICU Treated with NIV IV steroid antibiotics which was transitioned to high flow nasal cannula Transferred to the floor with pulmonary follow-up.On this admission CT chest did show lung nodule left-sided as well as right-sided upper lobe.She does have a history of obstructive sleep apnea however never treated with any PAP therapy.Assessment and Plan -Acute on chronic combined hypoxic hypercapnic respiratory failure -Haemophilus influenzae pneumonia/with coronavirus respiratory infection -Acute exacerbation of chronic obstructive pulmonary disease underlying severe emphysematous lung disease -13 mm lung nodule left upper lobe -History of heavy smoking more than 65-[id number] for smoking quit 6 months ago -History of obstructive sleep apnea however never tried PAP therapy -Patient suffers from acute on chronic hypoxic and hypercarbic respiratory failure secondary to her underlying severe COPD FEV1 30% predicted. Alternative modes of ventilation, such as Bipap with a rate, have been tried and failed as evidenced by persistent/ significant hypercarbia. Patient requires NIV, with volume targeted modes that Bipap cannot provide in order to prevent elevated CO2 levels, altered mental status and possible . Patient is at increased risk of continued exacerbations and hospital readmissions without NIV therapy. PT STATES NOW EATING WELL.DENIES NEED F0R SUPPLEMENTS. STATES SHE IS PREDIABETIC - HBAIC 07/31 WAS 6.8. does not want diet restricted . LTAC recommended Estimated Daily Nutrient Needs: Energy Requirements Based On: Kcal/kg Weight Used for Energy Requirements: [place] Weight for Energy Calculation (kg): 61 kg Total Energy Requirements (kcals/day): 8979-1433 (27-32 kcal/kg IBW) Weight Used for Protein Requirements: [place] Weight in Kg Used for Protein Requirements: 61 kg Estimated Total Protein (g/day): 61-92 (1.0-1.5 g protein/kg IBW) Estimated Daily Total Fluid (ml/day): per MD Nutrition Related Findings: On steroids , rocephin, melatonin , hbaic 6.8,k + was 5 - now 4.3,co2-39, gfr >90,glu 293, alb 3.3, tremors hands, non pitting edema, 11/04 bm, harjinder 20 Wound Type: None Current Nutrition Therapies: Adult diet Regular Current Oral Intake Average Meal Intake: 76-100% Average Supplements Intake: None Ordered Anthropometric Measures: Height: 170.2 cm (5' 7) Current Body Weight: 88.4 kg (194 lb 14.2 oz) (11/03) Weight Source: Not Specified Admission Body Weight: 87.7 kg (193 lb 4.8 oz) Usual Body Weight: 94.1 kg (207 lb 6.4 oz) (per EMR Review--> 207.4# 01/22/24; 184# 08/06/23; 193# 10/15/23) % Weight Change (Calculated): -6.8 [place] Body Weight (lbs) (Calculated): 135 lbs [place] Body Weight (Kg) (Calculated): 61 kg % [place] Body Weight (Calculated): 144.4 % BMI (kg/m2) (Calculated): 30.5 Weight Adjustment For: No Adjustment BMI Categories: Obese Class 1 (BMI 30.0-34.9) Nutrition Diagnosis: Increased nutrient needs related to impaired respiratory function, increase demand for energy/nutrients as evidenced by (Acute on Chronic Respiratory Failure with Hypoxia and Hypercapnia) Altered nutrition-related lab values related to impaired respiratory function as evidenced by BMI, lab values (medications- steroids. hbaic 6.8, bg) Nutrition Interventions: Nutrition Education/Counseling: Education not appropriate (wants regular diet) Coordination of Nutrition Care: Continue to monitor while inpatient Plan of Care discussed with: patient , spouse Goals: Previous Goal Met: Progressing toward Goal(s) Goals: Meet at least 75% of estimated needs Nutrition Monitoring and Evaluation: Behavioral-Environmental Outcomes: None Identified Food/Nutrient Intake Outcomes: Food and Nutrient Intake Physical Signs/Symptoms Outcomes: Biochemical Data, Chewing or Swallowing, Fluid Status or Edema, Hemodynamic Status, Meal Time Behavior, Nutrition Focused Physical Findings, Skin, Weight, GI Status Discharge Planning: Continue current diet Shyanne Lawton RD Contact: *[phone] or secure chat Hospitalist Progress Note 11/05/2023 [id number]: Please page me ([phone]) for patient care issues. [phone]: Please page [facility] Hospitalist for any issues. Subjective: Admit Date: 10/31/2023 PCP: Vu Mullins MD Room#: B2-244/B2-244 A Interval History: No overnight issues. Denies chest pain but admits to being sob. She is sob at rest but worse with exertion. No abdominal pain, nausea, vomiting. No fevers or chills. Adult diet Regular @[id number]@ 24HR INTAKE/OUTPUT: Intake/Output Summary (Last 24 hours) at 11/05/2023 1440 Last data filed at 11/05/2023 0342 Gross per 24 hour Intake 250 ml Output -- Net 250 ml Past Medical History: Past Medical History: Diagnosis Date COPD (chronic obstructive pulmonary disease) (HCC) Hypertension Polyp at cervical os SOB (shortness of breath) Tobacco abuse Tobacco abuse counseling LABS: CBC: Recent Labs 11/03/2334411/04/2344011/05/23318 WBC 10.3 8.5 8.8 RBC 4.36 4.40 4.27 HGB 13.3 13.4 12.7 HCT 41.8 43.2 42.4 MCV 95.9 98.2 99.3* RDW 12.6 12.5 12.8 PLT 266 274 251 BMP: Recent Labs 11/03/2334411/04/2344011/05/23318 NA 138 139 141 K 4.4 5.1 5.0 CL 95* 98 96* CO2 36* 36* 37* BUN 42* 38* 39* CREATININE 0.83 0.73 0.61 GLUCOSE 221* 266* 293* CALCIUM 9.2 9.0 9.1 ANIONGAP 7 5 8 LIVER PROFILE: Recent Labs 11/03/2334411/04/23 04411/05/23318 AST 26 23 21 ALT 38* 46* 44* BILITOT 0.4 0.4 0.4 ALKPHOS 63 55 56 PROT 6.4 6.2* 5.9* PT/INR: No results for input(s): PROTIME, INR in the last 72 hours. CARDIAC ENZYMES: No results for input(s): TROPONINI in the last 72 hours. Procalcitonin: No results found for: PROCAL COVID-19 PCR: No results for input(s): COVID19 in the last 72 hours. Objective: Vitals: BP (!) 163/83 (BP Location: Left arm, Patient Position: Sitting) Pulse 81 Temp 36.4 C (97.6 F) (Temporal) Resp 18 Ht 5' 7 (1.702 m) Wt 194 lb 14.2 oz (88.4 kg) SpO2 (!) 89% BMI 30.52 kg/m Pulse Ox: SpO2 Av.3 % Min: 89 % Max: 97 % Supplemental O2: O2 Flow Rate (L/min): 7 L/min General appearance: No apparent distress, appears stated age, HEENT: Eyes: No scleral icterus Oral: Tongue is semi-moist Cardiovascular: S1/S2 heard, RRR Respiratory: decreased bs throughout but clear, no wheezing Abdomen: Soft, non-tender, non-distended bowel sounds positive Musculoskeletal: No obvious deformities seen Skin: No visible rashes or lesions. Medications: budesonide, 0.5 mg, Nebulization, BID cefTRIAXone, 1,000 mg, IntraVENous, q24h enoxaparin, 40 mg, SubCUTAneous, Daily ipratropium-albuterol, 3 mL, Nebulization, 4x daily melatonin, 5 mg, Oral, Nightly pantoprazole, 40 mg, Oral, Nightly Or pantoprazole (ProtoNix) 40 mg in sodium chloride (PF) 0.9 % 10 mL injection, 40 mg, IntraVENous, Nightly predniSONE, 30 mg, Oral, Daily sennosides, 1 tablet, Oral, Nightly sertraline, 100 mg, Oral, Daily Assessment # Acute on Chronic Respiratory Failure with Hypoxia and Hypercapnia (previously on 4LNC chronically) - on high flow NC O2. Wean as able. Continue autobipap at night with nasal pillows as recommended per pulm/crit. Continue chest PT and incentive spirometer to assist with atelectasis. Continue guaifenesin to assist with clearance of secretions. # Acute exacerbation of COPD in setting of severe COPD/Emphysema - continue steroids/breathing tx. # H. Influenza + coronavirus PNA - continue rocephin IV and supportive tx. # Leukocytosis # Polycythemia suspect chronic from chronic hypoxia # Elevated troponin likely due to demand ischemia # DM type 2 with hyperglycemia # Chronic HTN # Obesity (BMI 30.28) Plan - Continue HFNC, wean as able. Pulmonary following and recommending LTAC. TCC/SW making referral. - Continue Ceftriaxone. - continue chest PT and incentive spirometer to assist with atelectasis. Continue guaifenesin to assist with clearance of secretions. - continue steroids and breathing tx. - continue autoBiPAP at bedtime and with naps. - PT/OT saw and recommending home with home health PT/Home with assist PRN. - check daily labs Extended Emergency Contact Information Primary Emergency Contact: Chidi Buitrago Relation: Spouse Ronaldo Barr MD Division of Hospitalist Medicine Inpatient Medical Services/[facility] [place] PAGER: Epic chat Images from the original note were not included. PHYSICAL THERAPY [facility] Name/MRN: Ember Buitrago ([id number]) Date: 11/05/2023 Chart review completed. Patient pleasantly declining to participate at this time due to R breat pain from percussion vest and requesting to rest at this time as she has also just worked with OT. Pt requesting therapist attempt later if able. Will continue to follow and re-attempt as appropriate. Margaret Case, PT Images from the original note were not included. OCCUPATIONAL THERAPY [facility] Treatment Note Name/MRN: Ember Buitrago ([id number]) Date of : 1960 Age: 63 y.o. [facility]: [facility] A Visit #: 2 out of 7 visits Discharge Recommendation: Home with Home health OT, Home with assist PRN Prior Level of Function ADL Assistance: Independent Ambulation Assistance: Independent Transfer Assistance: Independent Assessment Pt tolerated session fairly well, continues to improve with OT POC. Pt completed STS, standing grooming, and toilet transfers with SBA. Pt completed toileting hygiene at Mod I and functional mobility without device with CGA. Pt is progressing with POC but is still below baseline and is a fall risk. Pt would benefit from continued OT to improve activity tolerance, balance, and strength needed for improved occupational performance. Pt is recommended for [facility] OT at D/C Subjective Pt sitting in recliner, pleasant and agreeable. Per RN, pt okay to see O2: 7L on the wall. Due to tank limitations pt on 8 L during mobility SpO2: 92-93 while sitting/rest, desat to 87-88 during mobility. Pain: Pt denies any current pain. Medical Precautions: Droplet Proper PPE donned/doffed in accordance with facility standards. Fall Risk: Orellana Fall Risk Score: 45 (High Risk) Precautions/Restrictions: N/A Family/Caregiver Present: none Objective ADLs Grooming: SBA Toileting: Modified Independent Pt completed standing grooming at sink with out device and SBA. Pt with unilateral UE support on sink and required no hands on assist. Pt fatigued and with SOB Pt completed seated pericare at Mod I, no physical assist needed. Transfers/Mobility Sit to stand: SBA Stand to sit: SBA, Pt completed x2 STS from recliner without device and SBA. Pt demo good BUE placement, required no physical assist Toilet: SBA, Pt completed bathroom level toilet transfer with use of L grab bar and SBA. Pt demo good BUE placement Sitting balance: Modified Independent Standing balance: SBA Functional mobility: Contact Guard Pt completed household distance functional mobility while pushing O2 tank with CGA. Pt required x2 static standing rest breaks with pursed lip breathing. Pt with SpO2 87-88 during mobility Device(s) used: front wheeled walker, grab bars, and oxygen Cognition - Safety judgement: good awareness of safety precautions WNL Plan Continue acute OT per plan of care. Safety/Education Safety Safety Devices in place: All fall risk precautions in place, call light within reach, left in chair, gait belt, patient at risk for falls, nurse notified, and no alarms engaged upon entry Restraints: No Education Education Given To: patient Education Provided: OT Role, Plan of Care, Precautions, ADL Adaptive Strategies, Transfer Training, Equipment, Fall Prevention Education, and Discharge Recommendations Education Method: Verbal, Demonstration, and Teach Back Barriers to Learning: None Education Outcome: Verbalized Understanding, Demonstrated Understanding, and Continued Education Needed AM-PAC AM-PAC Inpatient Daily Activity Raw Score: 20 ADL Inpatient CMS G-Code Modifier: CJ Goals Patient Stated Goal: to go home Encounter Problems Encounter Problems (Active) Balance Patient will tolerate standing for 3 minutes mod I at LRD to allow increased independence in ADLs. (Progressing) Start: 11/02/23 Expected End: 11/16/23 Dressing Upper Extremities Patient will complete upper body ADLs mod I. (Not Addressed) Start: 11/02/23 Expected End: 11/16/23 Dressings Lower Extremities Patient will complete lower body ADLs mod I. (Not Addressed) Start: 11/02/23 Expected End: 11/16/23 Mobility Patient will demonstrate functional ambulation mod I with LRD. (Progressing) Start: 11/02/23 Expected End: 11/16/23 Transfers Patient will complete functional transfer with least restrictive device with modified independence in order to prepare for ambulation. (Progressing) Start: 11/02/23 Expected End: 11/16/23 Encounter Problems (Resolved) Toileting Patient will complete toileting tasks at standard toilet with modified independence. (Goal Met) Start: 11/02/23 Expected End: 11/16/23 Resolved: 11/05/23 Therapy Time Individual Co-treatment Time In 0759 Time Out 0825 Minutes 26 Timed Code Treatment Minutes: 26 Minutes (1 Ther ACt, 1 ADL) JACE Child Images from the original note were not included. [facility] [place], Pulmonary Medicine [address] [place], [place] [id number] Patient - Kendra Buitrago, Age - 63 y.o. - 1960 Room Number - B2-244/B2-244 A Consulting - Ronaldo Barr MD Primary Care Physician - [id number] Date of Admission - 10/31/2023 4:24 PM Hospital Day - 5 Chief Complaint Kendra Buitrago is a 63 y.o. 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 Interval History Patient remained profoundly hypoxic currently on 7 L high flow nasal cannula with use NIV last night Arterial blood gas this morning interpreted by ok pH 7.35 pCO2 of 80 pO2 of 70 Showing persistent hypercapnia and relative hypoxemia Initial ABG showed hypoxemia hypercapnia with a pH 7.28 pCO2 of 88 admitted to the ICU Treated with NIV IV steroid antibiotics which was transitioned to high flow nasal cannula Transferred to the floor with pulmonary follow-up Patient does follow-up with her dredge master as an outpatient Dr. Mackenzie She had a CAT scan in May 2022 Emphysema No reported lung nodule PFT 2018 FEV1 30% On this admission CT chest did show lung nodule left-sided as well as right-sided upper lobe Patient currently on 10 L salter Using IV last night however not very comfortable with it however just said that if she needed-she is willing to try She does have a history of obstructive sleep apnea however never treated with any PAP therapy All other systems reviewed Objective Vitals: BP 142/65 (BP Location: Right arm, Patient Position: Lying) Pulse 65 Temp 36.1 C (97 F) (Temporal) Resp 18 Ht 5' 7 (1.702 m) Wt 194 lb 14.2 oz (88.4 kg) SpO2 94% BMI 30.52 kg/m Pulse Ox: SpO2 Av.3 % Min: 92 % Max: 97 % Supplemental O2: O2 Flow Rate (L/min): 8 L/min I/O 24HR INTAKE/OUTPUT: Intake/Output Summary (Last 24 hours) at 11/05/2023 0824 Last data filed at 11/05/2023 0342 Gross per 24 hour Intake 250 ml Output -- Net 250 ml Exam General appearance: Resting on the bed awake alert on 7 L heated high flow HEENT: Normocephalic, atraumatic. No scleral icterus, no right/left eye discharge. Conjunctivae normal. Pupils equal round and reactive to light. Right external ear normal, Left external ear normal. No congestion. Mouth: mucous membranes moist. Pharynx, Oropharynx is clear. No oropharyngeal exudate. Neck: ROM normal, No thyromegaly. No cervical lymphadenopathy Cardiovascular: Regular rate and rhythm. Heart sounds normal. Negative for murmur, friction rub or gallop. Pulmonary: Markedly decreased breath sound with fine crackles bases posteriorly No wheezing appreciated Abdomen: Soft, no distention, no abdominal tenderness. No guarding. No masses. Musculoskeletal: ROM normal, Negative for swelling, tenderness or deformity. Skin: Warm and dry. Skin is not jaundiced. No rash Extremities: No clubbing, cyanosis, or extremity edema Neurological: No focal deficits. Alert and oriented x person, place and time. Mental status is at baseline. No motor weakness. Psychiatric: Mood, behavior, thought content normal. Cooperative with exam. Medications Current Medications cefTRIAXone, 1,000 mg, IntraVENous, q24h enoxaparin, 40 mg, SubCUTAneous, Daily ipratropium-albuterol, 3 mL, Nebulization, 4x daily melatonin, 5 mg, Oral, Nightly pantoprazole, 40 mg, Oral, Nightly Or pantoprazole (ProtoNix) 40 mg in sodium chloride (PF) 0.9 % 10 mL injection, 40 mg, IntraVENous, Nightly predniSONE, 30 mg, Oral, Daily sennosides, 1 tablet, Oral, Nightly sertraline, 100 mg, Oral, Daily PRN Mediations PRN medications: acetaminophen, albuterol, bisacodyl, guaiFENesin, ondansetron ODT OR ondansetron, oxymetazoline, sodium chloride IV Drips/Infusions Labs CBC Results from last 7 days Lab Units 11/05/23 0319 WBC AUTO 10*3/uL 8.8 HEMOGLOBIN g/dL 12.7 HEMATOCRIT % 42.4 PLATELETS AUTO 10*3/uL 251 BMP: Results from last 7 days Lab Units 11/05/23 0319 11/04/23 0441 11/03/23 0345 SODIUM mmol/L 141 139 138 POTASSIUM mmol/L 5.0 5.1 4.4 CHLORIDE mmol/L 96* 98 95* CO2 mmol/L 37* 36* 36* BUN mg/dL 39* 38* 42* CREATININE mg/dL 0.61 0.73 0.83 GLUCOSE mg/dL 293* 266* 221* CALCIUM mg/dL 9.1 9.0 9.2 ABG: Results from last 7 days Lab Units 11/05/23 0606 11/01/23 0355 10/31/23 1944 10/31/23 1637 POCT PH, ARTERIAL pH 7.350 7.321* 7.280* -- POCT PCO2, ARTERIAL mm Hg 80.9* 82.5* 88.3* -- POCT PO2, ARTERIAL mm Hg 78.3* 65.1* 64.0* -- POCT HCO3, ARTERIAL mmol/L 44.7* 42.6* 41.5* -- POCT BASE EXCESS, ARTERIAL mmol/L 14.8* 11.8* 9.5* -- SOURCE OF OXYGEN -- -- -- Bi-PAP LIVER PROFILE Results from last 7 days Lab Units 11/05/23 0319 11/04/23 0441 11/03/23 0345 ALK PHOS U/L 56 55 63 BILIRUBIN TOTAL mg/dL 0.4 0.4 0.4 PROTEIN TOTAL g/dL 5.9* 6.2* 6.4 ALT U/L 44* 46* 38* AST U/L 21 23 26 INR PTT No results found for: PTT Cultures PCR positive for haemophilus influenza coronavirus Radiology Patient Name: KENDRA BUITRAGO : 1960 Exam Date/Time: 11/02/2023 08:29 Procedure: CT CHEST WO IV CONTRAST Ordering Provider: PHIPPS MICHAEL Reason For Exam: Diffuse/interstitial lung disease CT CHEST CLINICAL INDICATION: Diffuse interstitial lung disease. TECHNIQUE: Transaxial sequence from apices through the bases Coronal and sagittal reconstructions included. Dose reduction was employed with automated exposure control. Contrast:None Additional technique:None COMPARISON: None. FINDINGS: Airway:No definite acute process. Lungs: Fibrotic appearing changes. Left upper lobe infiltrate density. 13 mm left upper lobe nodule. 7 mm right upper lobe nodule. Scarring or atelectasis both lung bases. Large bleb or bolus changes right lower lobe. Pleura: No definite effusion or pneumothorax.. Heart/Great vessels: Mild to moderate atherosclerotic calcifications. Mild cardiac enlargement. Mediastinum/Chary: No mass or enlarged lymph nodes identified. Chest wall and lower neck: No convincing acute process.. Upper abdomen: No convincing acute process. Liver cyst. Osseous structures: No convincing acute process.. IMPRESSION: Abnormal lungs. Suspected infiltrate left upper lobe. Please correlate clinically. Pulmonary nodules up to 13 mm. Scarring or atelectasis bilaterally. Cardiac enlargement and atherosclerosis.. Follow-up recommended. Active Hospital Problem List Patient Active Problem List Diagnosis History of tobacco abuse Anxiety Posterior capsular opacification visually significant, left eye Hypertriglyceridemia COPD (chronic obstructive pulmonary disease) (HCC) COPD with acute exacerbation (HCC) Hypertension Episode of recurrent major depressive disorder (HCC) Chronic hypoxemic respiratory failure (HCC) Hepatic cyst Type 2 diabetes mellitus without complication, without long-term current use of insulin (CMS/HCC) (HCC) COPD exacerbation (HCC) Swelling of left foot Dependent edema Respiratory failure (HCC) Assessment and Plan -Acute on chronic combined hypoxic hypercapnic respiratory failure -Haemophilus influenzae pneumonia/with coronavirus respiratory infection -Acute exacerbation of chronic obstructive pulmonary disease underlying severe emphysematous lung disease -13 mm lung nodule left upper lobe -History of heavy smoking more than [id number] for smoking quit 6 months ago -History of obstructive sleep apnea however never tried PAP therapy -Patient suffers from acute on chronic hypoxic and hypercarbic respiratory failure secondary to her underlying severe COPD FEV1 30% predicted. Alternative modes of ventilation, such as Bipap with a rate, have been tried and failed as evidenced by persistent/ significant hypercarbia. Patient requires NIV, with volume targeted modes that Bipap cannot provide in order to prevent elevated CO2 levels, altered mental status and possible . Patient is at increased risk of continued exacerbations and hospital readmissions without NIV therapy. Patient with severe underlying emphysematous lung disease with exacerbation secondary to pneumonia viral infection now with hypercapnia severe hypoxemia continue IV antibiotics Tapering dose of his steroid Maximization of bronchodilator therapy She does have left upper lobe lung nodule new since last CAT scan in May 2022 Last PFT available 2019 FEV1 30% severe obstructive disease Will need repeat PFT to assess the current pulmonary status Will get the patient follow-up in pulmonary office with follow-up PFT and assessment for any further workup for her lung nodule in view of severe end-stage emphysematous lung disease Patient will likely benefit from NIV therapy in view of severe end-stage COPD hypercapnia Patient not stable yet for discharge, Will benefit from LTAC Advance Directive: Full Code Case discussed with nurse and patient/ Questions and concerns addressed. Total time 50 minutes on this day of encounter includes counseling oxygen use inhaler therapy, coordinating plan of care, record and documentation review before and after visit including documentation and time not explicitly included on EMR time stamp for accounting for open encounter. Portions of the information within this encounter were entered using an electronic dictation system. Best attempts were made to edit/proofread the information prior to note completion. Despite the review of information, some errors may remain. If there are questions related to the information contained within the note please contact the signing provider directly. Images from the original note were not included. PHYSICAL THERAPY [facility] Treatment Note Name/MRN: Ember Buitrago ([id number]) Date of : 1960 Age: 63 y.o. Room/Bed: B2-244/B2-244 A Visit #: 2 out of 8 visits Discharge Recommendation: Home with Home health PT, Home with assist PRN Other: pending progess may need a FWW vs. rollator Prior Level of Function ADL Assistance: Independent Ambulation Assistance: Independent Device(s) used: none Transfer Assistance: Independent Assessment Pt demonstrates good improvement in functional mobility. Pt very motivated in therapy. Pt completes transfers and ambulation with SBA. Pt is limited by decreased endurance, requiring rest breaks for SpO2 monitoring. 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 Pt will continue to benefit from skilled PT services to improve in overall safety and independence with focus on endurance and dynamic balance. Recommend [facility] with PRN assist at discharge. Subjective Pt sitting up in recliner, agreeable to session. O2: 10L SpO2 82-94%. Return to >90% after 1 min rest after initial ambulation. Pain: Pt denies any current pain. Medical Precautions: Droplet Proper PPE donned/doffed in accordance with facility standards. Fall Risk: Orellana Fall Risk Score: 45 (High Risk) Precautions/Restrictions: N/A Overall Cognitive Status: WFL Overall Orientation Status: Oriented x4 Family/Caregiver Present: none Objective Ambulation Ambulation 1 Assistive device(s) used: none Assist level: SBA Distance (ft): 100ft, 80ft, 80ft Quality of gait: Pt demonstrates good reciprocal pattern and good safety with making turns. Pt demonstrates slow speed, but no LOB. Multiple laps made in room due to pt not requesting to isolation requirements. Pt ambulates first distance of 100ft. No major SOB noted, but SpO2 82%. SpO2 returns to >90% after 1 min seated rest breaks. Pt then ambulates 80ft x 2 with SpO2 87% after each ambulation. Pt demonstrates good insight to symptoms. Transfers/Mobility Sit to stand: SBA Stand to sit: SBA Pt completes transfer from recliner x 5 during session. Pt demonstrates good safety with no LOB. Device(s) used: none Bed Mobility Sit to supine: Modified Independent Pt returns back to bed at end of session with Mod I. Balance: Pt completes balance tasks in order to decrease fall risk: - Static standing with no UE support x 30 sec - SBA - Static standing with no UE support with eyes closed x 20 sec - SBA-CGA - increased postural sway. - Standing with narrow JONATHAN x 30 sec - SBA-CGA - increased postural sway. - Standing with tandem stance x 10 sec - CGA - Standing slow marches with no UE support to challenge weight shift - CGA. Pt reports increased difficulty with weight shifting tasks and will benefit from more dynamic training activities. Plan Continue acute PT per plan of care. Safety/Education Safety Safety Devices in place: All fall risk precautions in place, call light within reach, left in bed, gait belt, patient at risk for falls, nurse notified, and no alarms engaged upon entry Restraints: No Education Education Given To: patient Education Provided: PT Role, PT Goals, Gait Training, Plan of Care, Home Exercise Program, Precautions, Transfer Training, Discharge Recommendations, and Benefits of Increasing Activity Education Method: Verbal and Demonstration Barriers to Learning: None Education Outcome: Verbalized Understanding and Demonstrated Understanding Outcome Measures AM-PAC AM-PAC Inpatient Mobility Raw Score (No Stairs) : 17 Goals Patient Stated Goal: Patient states she wants to get better and get home. Encounter Problems Encounter Problems (Active) Balance Patient will maintain dynamic standing balance for 5 minutes with modified independence in order to demonstrate decreased risk of falling. (Progressing) Start: 11/02/23 Expected End: 11/09/23 Exercise Patient will complete lower extremity exercises for 1-2 sets / 10 reps in order to improve strength and activity tolerance for mobility. (Progressing) Start: 11/02/23 Expected End: 11/09/23 Mobility Patient will ambulate 100 feet with modified independence and least restrictive device in order to improve safety and independence with mobility. (Progressing) Start: 11/02/23 Expected End: 11/09/23 Patient will ascend and descend 3 stairs with one railing and supervision in order to safely negotiate home. (Not Addressed) Start: 11/02/23 Expected End: 11/09/23 Transfers Patient will perform bed mobility with modified independence in order to improve independence and prepare for out of bed mobility. (Not Addressed) Start: 11/02/23 Expected End: 11/09/23 Patient will complete functional transfers with least restrictive device with modified independence in order to prepare for ambulation. (Progressing) Start: 11/02/23 Expected End: 11/09/23 Therapy Time Individual Co-treatment Time In 1457 Time Out 1524 Minutes 27 Timed Code Treatment Minutes: 25 Minutes (1 gait, 1 neuro) Maggie Gonzalez PT Hospitalist Progress Note 11/04/2023 [id number]: Please page me ([phone]) for patient care issues. [phone]: Please page [facility] Hospitalist for any issues. Subjective: Admit Date: 10/31/2023 PCP: Vu Mullins MD Room#: B2-244/B2-244 A Interval History: No overnight issues. Denies chest pain but admits to being sob. She is sob at rest but worse with exertion. No abdominal pain, nausea, vomiting. No fevers or chills. Adult diet Regular @[id number]@ 24HR INTAKE/OUTPUT: Intake/Output Summary (Last 24 hours) at 11/04/2023 1120 Last data filed at 11/04/2023 0425 Gross per 24 hour Intake 480 ml Output 1100 ml Net -620 ml Past Medical History: Past Medical History: Diagnosis Date COPD (chronic obstructive pulmonary disease) (HCC) Hypertension Polyp at cervical os SOB (shortness of breath) Tobacco abuse Tobacco abuse counseling LABS: CBC: Recent Labs 11/02/23 0334 11/03/23 0345 11/04/23 0441 WBC 13.9* 10.3 8.5 RBC 4.37 4.36 4.40 HGB 13.3 13.3 13.4 HCT 41.7 41.8 43.2 MCV 95.4 95.9 98.2 RDW 12.7 12.6 12.5 PLT 237 266 274 BMP: Recent Labs 11/02/23 0334 11/03/23 0345 11/04/23 0441 NA 136 138 139 K 3.9 4.4 5.1 CL 93* 95* 98 CO2 34* 36* 36* BUN 43* 42* 38* CREATININE 0.73 0.83 0.73 GLUCOSE 226* 221* 266* CALCIUM 9.0 9.2 9.0 ANIONGAP 9 7 5 LIVER PROFILE: Recent Labs 11/02/23 0334 11/03/23 0345 11/04/23 0441 AST 23 26 23 ALT 29 38* 46* BILITOT 0.5 0.4 0.4 ALKPHOS 62 63 55 PROT 6.8 6.4 6.2* PT/INR: No results for input(s): PROTIME, INR in the last 72 hours. CARDIAC ENZYMES: No results for input(s): TROPONINI in the last 72 hours. Procalcitonin: No results found for: PROCAL COVID-19 PCR: No results for input(s): COVID19 in the last 72 hours. Objective: Vitals: BP 145/75 (BP Location: Right arm, Patient Position: Lying) Pulse 84 Temp 36.1 C (97 F) Resp 18 Ht 5' 7 (1.702 m) Wt 194 lb 14.2 oz (88.4 kg) SpO2 94% BMI 30.52 kg/m Pulse Ox: SpO2 Av.1 % Min: 91 % Max: 95 % Supplemental O2: O2 Flow Rate (L/min): 10 L/min General appearance: No apparent distress, appears stated age, HEENT: Eyes: No scleral icterus Oral: Tongue is semi-moist Cardiovascular: S1/S2 heard, RRR Respiratory: decreased bs throughout but clear, no wheezing Abdomen: Soft, non-tender, non-distended bowel sounds positive Musculoskeletal: No obvious deformities seen Skin: No visible rashes or lesions. Medications: cefTRIAXone, 1,000 mg, IntraVENous, q24h enoxaparin, 40 mg, SubCUTAneous, Daily ipratropium-albuterol, 3 mL, Nebulization, 4x daily melatonin, 5 mg, Oral, Nightly methylPREDNISolone sod suc (PF), 40 mg, IntraVENous, q12h pantoprazole, 40 mg, Oral, Nightly Or pantoprazole (ProtoNix) 40 mg in sodium chloride (PF) 0.9 % 10 mL injection, 40 mg, IntraVENous, Nightly sennosides, 1 tablet, Oral, Nightly sertraline, 100 mg, Oral, Daily Assessment # Acute on Chronic Respiratory Failure with Hypoxia and Hypercapnia (previously on 4LNC chronically) - on high flow NC O2. Wean as able. Continue autobipap at night with nasal pillows as recommended per pulm/crit. Continue chest PT and incentive spirometer to assist with atelectasis. Continue guaifenesin to assist with clearance of secretions. # Acute exacerbation of COPD in setting of severe COPD/Emphysema - continue steroids/breathing tx. # H. Influenza + coronavirus PNA - continue rocephin IV and supportive tx. # Leukocytosis # Polycythemia suspect chronic from chronic hypoxia # Elevated troponin likely due to demand ischemia # DM type 2 with hyperglycemia # Chronic HTN # Obesity (BMI 30.28) Plan - Patient just transferred out of ICU under my service. Prior notes/records reviewed. Continue tx as recommended per ICU team and consultants on transfer. - Continue HFNC, wean as able. - Continue Ceftriaxone. - continue chest PT and incentive spirometer to assist with atelectasis. Continue guaifenesin to assist with clearance of secretions. - continue steroids and breathing tx. - continue autoBiPAP at bedtime and with naps. - PT/OT saw and recommending home with home health PT/Home with assist PRN. - pulmonary to follow on here on floors per ICU team. Extended Emergency Contact Information Primary Emergency Contact: Chidi Buitrago Relation: Spouse Rnoaldo Barr MD Division of Hospitalist Medicine Inpatient Medical Services/[facility] [place] PAGER: Epic chat Images from the original note were not included. OCCUPATIONAL THERAPY [facility] Treatment Note Name/MRN: Ember Buitrago ([id number]) Date of : 1960 Age: 63 y.o. Room/Bed: B2-244/B2-244 A Visit #: 1 out of 7 visits Discharge Recommendation: Home with Home health OT, Home with assist PRN Prior Level of Function ADL Assistance: Independent Ambulation Assistance: Independent Transfer Assistance: Independent Assessment Pt tolerated session fairly well, continues to improve with OT POC. Pt completed bed mobility at Mod I. Pt completed STS, functional mobility, UB/LB ADLs and toileting with SBA. Pt fatigues quickly and requires seated pursed lip breathing breaks to recover. Pt is progressing with POC but is still below baseline and is a fall risk. Pt would benefit from continued OT to improve activity tolerance, balance, and strength needed for improved occupational performance. Pt is recommended for [facility] OT at D/C Subjective Pt supine in bed, very pleasant and agreeable to OT tx. Per RN, pt okay to see O2: 10 L SpO2: 86-94 during tx Pain: Pt denies any current pain. Medical Precautions: Droplet Proper PPE donned/doffed in accordance with facility standards. Fall Risk: Orellana Fall Risk Score: 35 (Medium Risk) Precautions/Restrictions: N/A Family/Caregiver Present: none Objective ADLs Grooming: SBA UE Bathing: SBA UE Dressing: SBA LE Dressing: SBA Toileting: SBA Pt completed standing hand hygiene at sink with SBA, increased time and VC for breathing tech needed. Pt completed UB bathing/dressing with set up and SBA. Pt required VC for line management. Pt able to doff/don kishore socks and thread briefs in sitting with SBA, seated rest breaks needed. Pt completed LB clothing management on/off hips in standing with SBA. Pt completed seated pericare with SBA, no physical assist needed but upright seated rest breaks Bed Mobility Supine to sit: Modified Independent Sit to supine: Modified Independent Scooting: Modified Independent Pt completed all aspects of bed mobility with use of bed features at Mod I. Pt without SOB. Transfers/Mobility Sit to stand: SBA Stand to sit: SBA, Pt completed x3 STS from EOB with FWW and SBA. Pt demo good BUE/BLE placement, with some SOB but denied dizziness Toilet: SBA, Pt completed bathroom level toilet transfer with use of L grab bar and SBA. Sitting balance: Modified Independent Standing balance: SBA Functional mobility: SBA Pt completed short household distance functional mobility with FWW and SBA. Pt required increased time and VC for pursed lip breathing. Pt SpO2 ~92 post mobility Device(s) used: front wheeled walker, hospital bed, and oxygen Cognition - Problem solving: able to problem solve independently WNL Plan Continue acute OT per plan of care. Safety/Education Safety Safety Devices in place: All fall risk precautions in place, call light within reach, left in bed, gait belt, patient at risk for falls, nurse notified, and no alarms engaged upon entry Restraints: No Education Education Given To: patient Education Provided: OT Role, Plan of Care, Precautions, ADL Adaptive Strategies, Transfer Training, Equipment, Fall Prevention Education, and Discharge Recommendations Education Method: Verbal, Demonstration, and Teach Back Barriers to Learning: None Education Outcome: Verbalized Understanding, Demonstrated Understanding, and Continued Education Needed AM-PAC AM-PAC Inpatient Daily Activity Raw Score: 19 ADL Inpatient CMS G-Code Modifier: CK Goals Patient Stated Goal: to go home Encounter Problems Encounter Problems (Active) Balance Patient will tolerate standing for 3 minutes mod I at LRD to allow increased independence in ADLs. (Progressing) Start: 11/02/23 Expected End: 11/16/23 Dressing Upper Extremities Patient will complete upper body ADLs mod I. (Progressing) Start: 11/02/23 Expected End: 11/16/23 Dressings Lower Extremities Patient will complete lower body ADLs mod I. (Progressing) Start: 11/02/23 Expected End: 11/16/23 Mobility Patient will demonstrate functional ambulation mod I with LRD. (Progressing) Start: 11/02/23 Expected End: 11/16/23 Toileting Patient will complete toileting tasks at standard toilet with modified independence. (Progressing) Start: 11/02/23 Expected End: 11/16/23 Transfers Patient will complete functional transfer with least restrictive device with modified independence in order to prepare for ambulation. (Progressing) Start: 11/02/23 Expected End: 11/16/23 Therapy Time Individual Co-treatment Time In 0914 Time Out 0945 Minutes 31 Timed Code Treatment Minutes: 31 Minutes (1 Ther Act, 1 ADL) JACE Child Images from the original note were not included. [facility] [place], Pulmonary Medicine [address] [place], [place] [id number] Patient - Kendra Buitrago, Age - 63 y.o. - 1960 Room Number - [id number] Consulting - Ronaldo Barr MD Primary Care Physician - Vu Mullins MD Date of Admission - 10/31/2023 4:24 PM Hospital Day - 4 Chief Complaint Kendra Buitrago is a 63 y.o. 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 Suspect duration reinitiated on Initial ABG showed hypoxemia hypercapnia with a pH 7.28 pCO2 of 88 admitted to the ICU Treated with NIV IV steroid antibiotics which was transitioned to high flow nasal cannula Transferred to the floor with pulmonary follow-up Patient does follow-up with her dredge master as an outpatient Dr. Mackenzie She had a CAT scan in May 2022 Emphysema No reported lung nodule PFT 2018 FEV1 30% On this admission CT chest did show lung nodule left-sided as well as right-sided upper lobe Patient currently on 10 L salter Using IV last night however not very comfortable with it however just said that if she needed-she is willing to try She does have a history of obstructive sleep apnea however never treated with any PAP therapy All other systems reviewed Objective Vitals: BP 158/82 (BP Location: Right arm, Patient Position: Sitting) Pulse 80 Temp 36.5 C (97.7 F) (Temporal) Resp 20 Ht 5' 7 (1.702 m) Wt 194 lb 14.2 oz (88.4 kg) SpO2 95% BMI 30.52 kg/m Pulse Ox: SpO2 Av.5 % Min: 91 % Max: 100 % Supplemental O2: O2 Flow Rate (L/min): 10 L/min I/O 24HR INTAKE/OUTPUT: Intake/Output Summary (Last 24 hours) at 11/04/2023 0925 Last data filed at 11/04/2023 0425 Gross per 24 hour Intake 480 ml Output 1100 ml Net -620 ml Exam General appearance: Awake, alert, dusky appearance HEENT: Normocephalic, atraumatic. No scleral icterus, no right/left eye discharge. Conjunctivae normal. Pupils equal round and reactive to light. Right external ear normal, Left external ear normal. No congestion. Mouth: mucous membranes moist. Pharynx, Oropharynx is clear. No oropharyngeal exudate. Neck: ROM normal, No thyromegaly. No cervical lymphadenopathy Cardiovascular: Regular rate and rhythm. Heart sounds normal. Negative for murmur, friction rub or gallop. Pulmonary: Markedly decreased breath sound with fine crackles bases posteriorly No wheezing appreciated Abdomen: Soft, no distention, no abdominal tenderness. No guarding. No masses. Musculoskeletal: ROM normal, Negative for swelling, tenderness or deformity. Skin: Warm and dry. Skin is not jaundiced. No rash Extremities: No clubbing, cyanosis, or extremity edema Neurological: No focal deficits. Alert and oriented x person, place and time. Mental status is at baseline. No motor weakness. Psychiatric: Mood, behavior, thought content normal. Cooperative with exam. Medications Current Medications cefTRIAXone, 1,000 mg, IntraVENous, q24h enoxaparin, 40 mg, SubCUTAneous, Daily ipratropium-albuterol, 3 mL, Nebulization, 4x daily melatonin, 5 mg, Oral, Nightly methylPREDNISolone sod suc (PF), 40 mg, IntraVENous, q12h pantoprazole, 40 mg, Oral, Nightly Or pantoprazole (ProtoNix) 40 mg in sodium chloride (PF) 0.9 % 10 mL injection, 40 mg, IntraVENous, Nightly sennosides, 1 tablet, Oral, Nightly sertraline, 100 mg, Oral, Daily PRN Mediations PRN medications: acetaminophen, albuterol, bisacodyl, guaiFENesin, ondansetron ODT OR ondansetron, sodium chloride IV Drips/Infusions Labs CBC Results from last 7 days Lab Units 11/04/23 0441 WBC AUTO 10*3/uL 8.5 HEMOGLOBIN g/dL 13.4 HEMATOCRIT % 43.2 PLATELETS AUTO 10*3/uL 274 BMP: Results from last 7 days Lab Units 11/04/23 0441 11/03/23 0345 11/02/23 0334 SODIUM mmol/L 139 138 136 POTASSIUM mmol/L 5.1 4.4 3.9 CHLORIDE mmol/L 98 95* 93* CO2 mmol/L 36* 36* 34* BUN mg/dL 38* 42* 43* CREATININE mg/dL 0.73 0.83 0.73 GLUCOSE mg/dL 266* 221* 226* CALCIUM mg/dL 9.0 9.2 9.0 ABG: Results from last 7 days Lab Units 11/01/23 0355 10/31/23 1944 10/31/23 1637 POCT PH, ARTERIAL pH 7.321* 7.280* -- POCT PCO2, ARTERIAL mm Hg 82.5* 88.3* -- POCT PO2, ARTERIAL mm Hg 65.1* 64.0* -- POCT HCO3, ARTERIAL mmol/L 42.6* 41.5* -- POCT BASE EXCESS, ARTERIAL mmol/L 11.8* 9.5* -- SOURCE OF OXYGEN -- -- Bi-PAP LIVER PROFILE Results from last 7 days Lab Units 11/04/23 0441 11/03/23 0345 11/02/23 0334 ALK PHOS U/L 55 63 62 BILIRUBIN TOTAL mg/dL 0.4 0.4 0.5 PROTEIN TOTAL g/dL 6.2* 6.4 6.8 ALT U/L 46* 38* 29 AST U/L 23 26 23 INR PTT No results found for: PTT Cultures PCR positive for haemophilus influenza coronavirus Radiology Patient Name: KENDRA BUITRAGO : 1960 Exam Date/Time: 11/02/2023 08:29 Procedure: CT CHEST WO IV CONTRAST Ordering Provider: PHIPPS MICHAEL Reason For Exam: Diffuse/interstitial lung disease CT CHEST CLINICAL INDICATION: Diffuse interstitial lung disease. TECHNIQUE: Transaxial sequence from apices through the bases Coronal and sagittal reconstructions included. Dose reduction was employed with automated exposure control. Contrast:None Additional technique:None COMPARISON: None. FINDINGS: Airway:No definite acute process. Lungs: Fibrotic appearing changes. Left upper lobe infiltrate density. 13 mm left upper lobe nodule. 7 mm right upper lobe nodule. Scarring or atelectasis both lung bases. Large bleb or bolus changes right lower lobe. Pleura: No definite effusion or pneumothorax.. Heart/Great vessels: Mild to moderate atherosclerotic calcifications. Mild cardiac enlargement. Mediastinum/Chary: No mass or enlarged lymph nodes identified. Chest wall and lower neck: No convincing acute process.. Upper abdomen: No convincing acute process. Liver cyst. Osseous structures: No convincing acute process.. IMPRESSION: Abnormal lungs. Suspected infiltrate left upper lobe. Please correlate clinically. Pulmonary nodules up to 13 mm. Scarring or atelectasis bilaterally. Cardiac enlargement and atherosclerosis.. Follow-up recommended. Active Hospital Problem List Patient Active Problem List Diagnosis History of tobacco abuse Anxiety Posterior capsular opacification visually significant, left eye Hypertriglyceridemia COPD (chronic obstructive pulmonary disease) (HCC) COPD with acute exacerbation (HCC) Hypertension Episode of recurrent major depressive disorder (HCC) Chronic hypoxemic respiratory failure (HCC) Hepatic cyst Type 2 diabetes mellitus without complication, without long-term current use of insulin (CMS/HCC) (HCC) COPD exacerbation (HCC) Swelling of left foot Dependent edema Respiratory failure (HCC) Assessment and Plan -Acute on chronic combined hypoxic hypercapnic respiratory failure -Haemophilus influenzae pneumonia/with coronavirus respiratory infection -Acute exacerbation of chronic obstructive pulmonary disease underlying severe emphysematous lung disease -13 mm lung nodule left upper lobe -History of heavy smoking more than 88-[id number] for smoking quit 6 months ago -History of obstructive sleep apnea however never tried PAP therapy - Patient with severe underlying emphysematous lung disease with exacerbation secondary to pneumonia viral infection now with hypercapnia severe hypoxemia continue IV antibiotics Tapering dose of his steroid Maximization of bronchodilator therapy She does have left upper lobe lung nodule new since last CAT scan in May 2022 Last PFT available 2018 FEV1 30% severe obstructive disease Will need repeat PFT to assess the current pulmonary status Will get the patient follow-up in pulmonary office with follow-up PFT and assessment for any further workup for her lung nodule in view of severe end-stage emphysematous lung disease Patient will likely benefit from NIV therapy in view of severe end-stage COPD hypercapnia Advance Directive: Full Code Case discussed with nurse and patient/ Questions and concerns addressed. Total time 50 minutes on this day of encounter includes counseling oxygen use inhaler therapy, coordinating plan of care, record and documentation review before and after visit including documentation and time not explicitly included on EMR time stamp for accounting for open encounter. Portions of the information within this encounter were entered using an electronic dictation system. Best attempts were made to edit/proofread the information prior to note completion. Despite the review of information, some errors may remain. If there are questions related to the information contained within the note please contact the signing provider directly. Images from the original note were not included. PHYSICAL THERAPY [facility] Treatment Note Name/MRN: Ember Buitrago ([id number]) Date of : 1960 Age: 63 y.o. Room/Bed: 222/ A Visit #: 1 out of 8 visits . Discharge Recommendation: Home with assist PRN, Home with Home health PT Other: pending progess may need a FWW vs. rollator Prior Level of Function ADL Assistance: Independent Ambulation Assistance: Independent Device(s) used: none Transfer Assistance: Independent Assessment Patient continues to demonstrate motivation to participate in therapy and progress towards goals. Patient continues to require SBA for transfers and SBA/CGA for ambulation. Patient able to ambulate 90 ft total (with 2 rest breaks to recover SpO2) on this date. Exercise program initiated on this date. Patient would benefit from continued skilled physical therapy to progress towards goals and increase overall functional mobility. Discharge recommendation remains [facility] with assistance PRN. Subjective Patient pleasant and agreeable to therapy session this date. Per RN, patient okay for therapy. Observation: ICU tele intact. O2 at 11L noted. Vitals SpO2 86-95% Pain: Pt denies any current pain. Medical Precautions: Droplet Proper PPE donned/doffed in accordance with facility standards. Fall Risk: Orellana Fall Risk Score: 35 (Medium Risk) Precautions/Restrictions: N/A Overall Cognitive Status: WFL Overall Orientation Status: Oriented x4 Family/Caregiver Present: none Objective Ambulation Ambulation 1 Assistive device(s) used: none Assist level: Contact Guard Distance (ft): 45 ft x 1, 30 ft x 1, 15 ft x 1 Quality of gait: No LOB, reciprocal stepping, slow erika Patient able to ambulate 45 ft initially before SpO2 dropped to 86%. Patient able to recover to 90% in 2 minutes with PLB and a seated rest break. Patient recovered to 93% within 4 minutes total. Patient then able to ambulate 30 ft before SpO2 dropped to 87%. Patient able to recover to 91% in 1 minute with standing rest break and PLB. Patient then ambulated another 15 ft before taking another seated rest break due to SpO2 at 88%. Patient demonstrates good insight into symptoms and SpO2 levels. Patient on 11L O2 for the entirety of this session. No true LOB or instability noted. Transfers/Mobility Sit to stand: SBA, From recliner to no device x 2 Stand to sit: SBA, From no device to recliner x 2 Patient able to complete 2 x STS with SBA. Patient denies dizziness upon initial stance. No true LOB or instability noted. Device(s) used: none Exercises Gluteal Sets: 1 set / 10 reps in sitting Hip Abduction: 1 set / 10 reps B LE in sitting - isometrics Hip Adduction: 1 set / 10 reps B LE in sitting isometrics Knee Long Arc Quad: 1 set / 10 reps B LE in sitting Seated Marches: 1 / 10 reps B in sitting Ankle Pumps: 1 set / 10 reps B LE in sitting Comments: Initiated exercises in order to improve strength and activity tolerance for mobility. Pt educated on technique and rationale for exercises in order to improve patients understanding and compliance with exercises. Pt demonstrates good understanding and ability to complete at this time. Pt able to teach back exercises to therapist as well as rationale in order to assure understanding. Bed Mobility NT patient in recliner at start of and end of session. Plan Continue acute PT per plan of care. Safety/Education Safety Safety Devices in place: All fall risk precautions in place, call light within reach, left in chair, gait belt, patient at risk for falls, nurse notified, and no alarms engaged upon entry Restraints: N/A Education Education Given To: patient Education Provided: PT Role, PT Goals, Gait Training, Plan of Care, Transfer Training, Fall Prevention Education, Discharge Recommendations, and Benefits of Increasing Activity Education Method: Verbal, Demonstration, and Teach Back Barriers to Learning: None Education Outcome: Verbalized Understanding, Demonstrated Understanding, and Continued Education Needed Outcome Measures AM-PAC AM-PAC Inpatient Mobility Raw Score (No Stairs) : 15 -[facility] Goals Patient Stated Goal: Patient states she wants to get better and get home. Encounter Problems Encounter Problems (Active) Balance Patient will maintain dynamic standing balance for 5 minutes with modified independence in order to demonstrate decreased risk of falling. (Progressing) Start: 11/02/23 Expected End: 11/09/23 Exercise Patient will complete lower extremity exercises for 1-2 sets / 10 reps in order to improve strength and activity tolerance for mobility. (Progressing) Start: 11/02/23 Expected End: 11/09/23 Mobility Patient will ambulate 100 feet with modified independence and least restrictive device in order to improve safety and independence with mobility. (Progressing) Start: 11/02/23 Expected End: 11/09/23 Patient will ascend and descend 3 stairs with one railing and supervision in order to safely negotiate home. (Not Addressed) Start: 11/02/23 Expected End: 11/09/23 Transfers Patient will perform bed mobility with modified independence in order to improve independence and prepare for out of bed mobility. (Not Addressed) Start: 11/02/23 Expected End: 11/09/23 Patient will complete functional transfers with least restrictive device with modified independence in order to prepare for ambulation. (Progressing) Start: 11/02/23 Expected End: 11/09/23 Therapy Time Individual Co-treatment Time In 1325 Time Out 1407 Minutes 42 Timed Code Treatment Minutes: 38 Minutes (1 x Ther ex, 2 x Gait training) Marquita SCHULTE Images from the original note were not included. OCCUPATIONAL THERAPY [facility]'s Name/MRN: Ember Buitrago ([id number]) Date: 11/03/2023 Chart reviewed. Attempted to see pt, however pt currently working with PT. Will re-attempt as schedule permits. Dannielle Skinner OT ICU Progress Note Name: Kendra Buitrago : 1960(63 y.o.) Date: 11/03/23 Team: MICU Attending: Mahesh Phipps Chief Complaint: Acute Respiratory Failure with Hypoxia Subjective: Hospital Summary: 63 yo F PMH chronic respiratory failure on 4LNC baseline, COPD/emphysema, HTN, tobacco abuse who presented with shortness of breath and syncope. Noted to have change in sputum (usually clear now green) and started on steroids and antibiotics for AECOPD. Started on NIV and transitioned to HFNC during the day. Interval Events: Patient seen and examined. Awake, alert, following commands. Feels improvement compared to yesterday. Up in chair eating breakfast. Otherwise without further complaints. Scheduled Meds:cefTRIAXone, 1,000 mg, IntraVENous, q24h enoxaparin, 40 mg, SubCUTAneous, Daily ipratropium-albuterol, 3 mL, Nebulization, q4h melatonin, 5 mg, Oral, Nightly methylPREDNISolone sod suc (PF), 40 mg, IntraVENous, q6h pantoprazole, 40 mg, Oral, Nightly Or pantoprazole (ProtoNix) 40 mg in sodium chloride (PF) 0.9 % 10 mL injection, 40 mg, IntraVENous, Nightly sennosides, 1 tablet, Oral, Nightly sertraline, 100 mg, Oral, Daily Continuous Infusions: Objective: Last Vitals: BP MAP 143/70 (11/03/23 07) 92 (11/03/23 07) Arterial BP MAP Temp 36.7 C (98.1 F) (11/03/2337) Pulse 77 (11/03/23 0810) Resp 18 (11/03/23809) SpO2 91 % (11/03/23809) Weight 90.6 kg (199 lb 11.8 oz) (11/03/23599) BMI Body mass index is 31.28 kg/m . I/O: 11/01 699 - 11/02 658 In: 1280 [P.O.:1280] Out: - Ventilator: Resp Rate (Set): 14 FiO2 (%): 50 % Inspiratory Time (sec): 0.8 sec Oxygen Delivery: O2 Flow Rate (L/min): 45 L/min Invasive Lines / Tubes / Drains: Peripheral IV 11/01/23 Posterior;Right Forearm (Active) Number of days: 1 Central Line Indication: NA - patient does not have a central line Jamil Indications: NA - patient does not have a Jamil catheter Restraints: NA - patient is not restrained. Wounds: Constitutional: General Appearance [x]WDWN []Obese []Cachectic []Thin []Ill Eyes: Inspection of Pupils/Irises Pupils round and react: [x]Yes []No Sclera: []Icteric [x]Non-Icteric Inspection of Conjunctiva/Lids Conjunctiva: []Injected [x]Non-Injected Lids: [x]Intact []Lesion Present ENT/Mouth: External Inspection of ears/nose [x] Normal [] Scar/Lesion/Mass Inspection of teeth/lips/gums Dentition: [][place] Teeth []Dentures Lips/Gums: [x]Intact []Lesion Present Mucosa: [x][place] [x]Moist []Dry Neck: External Appearance Overall Appearance: [x]Normal []Lesion/Mass/Crepitus Present Trachea midline: [x]Yes []No Thyroid [x]Normal []Enlarged []Tender []Mass []Absent Respiratory: Respiratory effort []Labored [x]Non-Labored [] Mechanically-Ventilated Auscultation []Clear []Crackles []Wheezes [x]Rhonchi Cardiovascular: Auscultation Rate: [x]Regular []Irregular []Tachycardia []Bradycardia Rhythm: [x]Regular []Irregular Murmur: []Present [x]Absent Extremities Peripheral Edema: []Present [x]Absent Varicosities: []Present []Absent Gastrointestinal: Abdomen Palpation: [x]Soft []Firm []Tender [x]Non-Tender []Distended [x]Non-distended Mass: []Present [x]Absent Bowel Sounds: [x]Present []Absent Hernia: []Present []Absent Liver/Spleen: []Hepatosplenomegaly []Organomegaly Absent Musculoskeletal: Inspection of Digits and Nails Cyanosis: []Present [x]Absent Clubbing: []Present [x]Absent Ischemia: []Present [x]Absent Infection: []Present [x]Absent Extremities ARMSTRONG Equally: Except ([]RUE []RLE []LUE []LLE) Strength/Tone: Intact and Normal ([x]RUE [x]RLE [x]LUE [x]LLE) Skin: Inspection [x]Normal []Rash []Lesion []Ulcer Palpation [x]Warm []Cool []Dry []Clammy []Nodules []Induration []Skin-tightening Cap-Refill: [x] <3 sec [] >3 seconds (delayed) Neurologic: GCS EYE: 4 - Opens spontaneously GCS MOTOR: 6 - Obeys commands for movement GCS VERBAL: 5 - Oriented to person, place, time Total GCS: 15 [x] Sensation grossly intact Psych: Mental Status Alert: [x]Yes [] No Oriented: []x0 []X1 []X2 [x]x3 Mood/Affect [x]Normal []Flat []Agitated []Depressed []Anxious []Calm []Sedated []NAD [facility] within last 24 hours- BMP: Recent Labs 11/01/2352711/02/2333311/03/23344 NA 137 136 138 K 3.9 3.9 4.4 CL 91* 93* 95* CO2 37* 34* 36* BUN 38* 43* 42* CREATININE 1.10* 0.73 0.83 CALCIUM 9.3 9.0 9.2 MG 2.5* 2.3 2.1 PHOS 4.3 4.3 3.5 LFTs: Recent Labs 11/01/2352711/02/2333311/03/23344 AST ALT 38* PROT 7.1 6.8 6.4 ALBUMIN 3.9 3.7 3.5 BILITOT 0.6 0.5 0.4 ALKPHOS 75 62 63 Glucose: Recent Labs 10/31/23163611/01/2352711/02/2333311/03/23344 GLUCOSE 265* 204* 226* 221* Procal: Recent Labs 10/31/232001 PROCAL 0.55* CBC: Recent Labs 11/01/2352711/02/2333311/03/23344 WBC 12.7* 13.9* 10.3 HGB 14.4 13.3 13.3 HCT 46.3 41.7 41.8 PLT 234 237 266 MCV 96.3 95.4 95.9 RDW 12.9 12.7 12.6 ABGs: Recent Labs 10/31/23163610/31/23194311/01/23354 PHART -- 7.280* 7.321* [id number] -- 88.3* 82.5* PO2ART -- 64.0* 65.1* [id number] -- 41.5* 42.6* SO2ART -- 87.2* 89.0* [id number] Bi-PAP -- -- Lactic Acid: No results for input(s): LACTATE in the last 72 hours. INR: No results for input(s): INR in the last 72 hours. Cardiac Injury Profile: Recent Labs 05/26/24 1637 05/26/24 2002 05/26/24 2312 TROPONINI <0.012 0.040* 0.036* Labs in Last 3 months: No results found for: TSH, VITD25, PSA, INR, GLUF Microbiology- Urine Cx: No results found for: URINECX Blood Cx: No results found for: BLOODCX Sputum Cx: Lab Results Component Value Date RESPCULT Few respiratory christina present. 11/01/2023 Gram Stain: Lab Results Component Value Date LABGRAM Rare Epithelial cells per low power field (A) 11/01/2023 LABGRAM (A) 11/01/2023 Many Polymorphonuclear leukocytes per low power field LABGRAM Few Gram positive cocci in clusters (A) 11/01/2023 LABGRAM Few Gram positive bacilli (A) 11/01/2023 LABGRAM Rare Gram negative bacilli (A) 11/01/2023 PNA PCR: Lab Results Component Value Date HUMANMETAPNE Not Detected 11/01/2023 COVID19: No results found for: COVID19 Legionella Ag: Lab Results Component Value Date LEGIONELLAPN Not Detected 11/01/2023 Strep Ag: No results for input(s): STREPPNEUMO in the last 72 hours. 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 Influenza + coronavirus PNA Leukocytosis Polycythemia suspect chronic from chronic hypoxia NSTEMI - improving DMII with hyperglycemia Obesity (BMI 30.28) - transitioned to HFNC requiring 45L/40% - attempt to wean to salter today. Auto bipap overnight with nasal pillows. - PNA PCR with h. Influenzae and coronavirus. Continue Ceftriaxone. - BNP low, does not appear volume overloaded - continue chest PT and incentive spirometer to assist with atelectasis. Continue guaifenesin to assist with clearance of secretions. - continue antibiotics/steroids at this time. Clinically improving. SpO2 goal >88. - wean steroids to q 12 - continue autoBiPAP at bedtime and with naps. - PT/OT - Regular diet - pulmonary to follow on floors. GI Prophylaxis: Pantoprazole PO DVT Prophylaxis: Lovenox 40 q 24hr - creatinine clearance >30 Disposition: Transfer to telemetry Time spent preparing to see the patient, obtaining/reviewing separately obtained history, completing an appropriate medical examination of the patient, ordering medications/tests/procedures, documenting clinical information on the EMR, and/or coordinating care is a subsequent visit: 50 minutes (Level III). Nutrition Assessment Type and Reason for Visit: Initial (ICU admit) Nutrition Recommendations/Plan: Continue Regular Diet Encourage patient to participate in room service and order well balanced meals Please record % meals consumed in flowsheet for most accurate nutrient intake assessment. Obtain updated standing scale weight as able for most accurate anthropometric data RDN to continue to monitor weekly: fluid accumulation, weight, skin integrity, trends in lab values, tolerance of PO diet, improvement in clinical status, discharge planning. Malnutrition Assessment: Malnutrition Status: At risk for malnutrition (Comment) (monitor ability to meet nutrition needs) Context: Acute Illness Findings of the 6 clinical characteristics of malnutrition: Energy Intake: Mild decrease in energy intake (Comment) (Poor PO x3 days [employer]NAGEMENT. Appetite currnetly intact) Weight Loss: No significant weight loss Body Fat Loss: No significant body fat loss Muscle Mass Loss: Unable to assess Fluid Accumulation: No significant fluid accumulation Respiratory Therapy Technician Strength: Not Performed Nutrition Assessment: 63 year old woman with PMHx: COPD(+4 L O2 via NC baseline) with continued tobacco use, HTN. She presented to [facility] unresponsive and with SOB to [facility] ED on 10/30. While waiting for EMS to come to her home, she became unresponsive, and her began bystander CPR. Initially taken to [facility] where she was found to be hypoxic, +PAP and treated with steroids and bronchodilators. Transferred and admitted to [facility] ICU for escalation of care. Significant labs on admit: WBC(17.6), HJgb(16.2), Hct(50.6), BUN(21). Chest Xray without effusions or acute infiltrates. No pleural thickening. Sitting up in chair after working with therapy. Per patient her appetite remains intact, and she consumed: a western scrambler, potatoes, sausage and a bagel this morning. She feels hungry and does endorse intentional weight loss due to diet modification before becoming acutely ill. Acutely with poor PO x3 days [employer]NAGEMENT. Declined ONS, encourage protein and caloric intake due to increased needs Estimated Daily Nutrient Needs: Energy Requirements Based On: Kcal/kg Weight Used for Energy Requirements: [place] Weight for Energy Calculation (kg): 61 kg Total Energy Requirements (kcals/day): 4342-6356 (27-32 kcal/kg IBW) Weight Used for Protein Requirements: [place] Weight in Kg Used for Protein Requirements: 61 kg Estimated Total Protein (g/day): 61-92 (1.0-1.5 g protein/kg IBW) Estimated Daily Total Fluid (ml/day): per MD Nutrition Related Findings: No skin break down or edema noted. Harjinder score=20. Meds and labs reviewed. +45L O2 HFNC Wound Type: None Current Nutrition Therapies: Adult diet Regular Current Oral Intake Average Meal Intake: 76-100% Average Supplements Intake: None Ordered Anthropometric Measures: Height: 170.2 cm (5' 7) Current Body Weight: 87.7 kg (193 lb 5.5 oz) Weight Source: Not Specified Admission Body Weight: 87.7 kg (193 lb 4.8 oz) Usual Body Weight: 94.1 kg (207 lb 6.4 oz) (per EMR Review--> 207.4# 01/22/24; 184# 08/06/23; 193# 10/15/23) % Weight Change (Calculated): -6.8 [place] Body Weight (lbs) (Calculated): 135 lbs [place] Body Weight (Kg) (Calculated): 61 kg % [place] Body Weight (Calculated): 143.2 % BMI (kg/m2) (Calculated): 30.3 Weight Adjustment For: No Adjustment BMI Categories: Obese Class 1 (BMI 30.0-34.9) Nutrition Diagnosis: Increased nutrient needs related to impaired respiratory function, increase demand for energy/nutrients as evidenced by (Acute on Chronic Respiratory Failure with Hypoxia and Hypercapnia) Nutrition Interventions: Nutrition Education/Counseling: Education not indicated Coordination of Nutrition Care: Continue to monitor while inpatient Plan of Care discussed with: Multidisciplinary rounds; RN and patient Goals: Goals: Meet at least 75% of estimated needs Nutrition Monitoring and Evaluation: Behavioral-Environmental Outcomes: None Identified Food/Nutrient Intake Outcomes: Diet Advancement/Tolerance, Food and Nutrient Intake Physical Signs/Symptoms Outcomes: Biochemical Data, GI Status, Meal Time Behavior, Hemodynamic Status, Fluid Status or Edema, Nutrition Focused Physical Findings, Nausea or Vomiting, Skin, Weight Discharge Planning: Continue current diet Guerline Ma RDN, LDN, Contact: *[phone] Images from the original note were not included. PHYSICAL THERAPY [facility] Initial Evaluation Name/MRN: Ember Buitrago ([id number]) Evaluation Date: 11/02/2023 Date of : 1960 Admission Date: 10/31/2023 4:24 PM Age: 63 y.o. Room/Bed: 22208/22208 A Discharge Recommendation: Home with assist PRN, Home with Home health PT (pending O2 needs and medical stability) Other: pending progess may need a FWW vs. rollator Assessment IMPRESSION: Pt presents with decreased functional mobility, decreased strength, decreased safety awareness, decreased endurance and impaired balance. Pt has decreased standing balance requiring 1 person and FWW for safety at this time placing her at an increased risk of falling. Pt could benefit from continued PT in order to address her decreased functional mobility, strength, balance and safety. Pt has medical history as indicated below that contributes to her clinical presentation. At baseline patient is functionally independent with no device. Currently patient is SBA with FWW and CGA with no device and is anticipated to progress with acute therapies and medical management in order to return home with assist and C PT. Diagnosis: Pt admitted with respiratory distress, underwent CPR by her spouse at home, found to have acute on chronic hypoxic and hypercapnic respiratory failure. Prognosis: good Performance Deficits /Impairments: Decreased Functional Mobility, Decreased Strength, Decreased Safety Awareness, Decreased Endurance, and Decreased Balance Decision Making: Medium Complexity Subjective Patient pleasant and agreeable to therapy session this date. Per RN patient okay for therapy. Co-eval with OT. Observation: ICU tele, continuous O2 monitoring, high flow at 50% FiO2 and 45 L O2 Vitals SpO2 85 - 93% Pain: Pt denies any current pain. Past Medical History: Past Medical History: Diagnosis Date COPD (chronic obstructive pulmonary disease) (HCC) Hypertension Polyp at cervical os SOB (shortness of breath) Tobacco abuse Tobacco abuse counseling Past Surgical History: Past Surgical History: Procedure Laterality Date APPENDECTOMY CATARACT EXTRACTION W/ INTRAOCULAR LENS IMPLANT Left 04/17/2019, 02/2022 CATARACT EXTRACTION W/ INTRAOCULAR LENS IMPLANT Right 04/03/2019, 02/2022 dr garnica COLONOSCOPY 2016 LUNG SURGERY Right 09/2021 went in and cleaned out TONSILLECTOMY (HISTORICAL) Admission Diagnosis: Patient Active Problem List Diagnosis Date Noted Respiratory failure (HCC) 10/31/2023 Dependent edema 10/15/2023 Swelling of left foot 2023 COPD exacerbation (HCC) 01/21/2023 Type 2 diabetes mellitus without complication, without long-term current use of insulin ([facility]/HCC) (HCC) 07/28/2022 Hepatic cyst 05/25/2022 Chronic hypoxemic respiratory failure (HCC) 05/11/2022 Episode of recurrent major depressive disorder ([facility]) 04/20/2022 COPD (chronic obstructive pulmonary disease) ([facility]) 12/31/2021 COPD with acute exacerbation ([facility]) 08/29/2021 Posterior capsular opacification visually significant, left eye 12/26/2020 Hypertriglyceridemia 12/20/2020 Anxiety 10/31/2019 History of tobacco abuse 09/06/2019 Hypertension 02/22/2017 Medical Precautions: Droplet Proper PPE donned/doffed in accordance with facility standards. Fall Risk: Orellana Fall Risk Score: 30 (Medium Risk) Precautions/Restrictions: monitor SpO2 Family/Caregiver Present: none Overall Cognitive Status: WFL Overall Orientation Status: Oriented x4 Vision: wears glasses for reading and and are NOT being used during the eval Hearing: normal Social/Functional History Patient admitted from home. Lives With: Spouse Type of Home: single family home Home Layout: Two Level Home and Able to Live on Main Level Home Access: Stairs to Enter with Rails (# of stairs: 3) Bathroom Shower/Tub: Tub/Shower Combo and Shower Chair with Back Toilet: Handicap Height Home Equipment: none Homemaking Responsibilities: Independent Receives Help From: Spouse Active Gate Keeper: Yes Prior Level of Function ADL Assistance: Independent Ambulation Assistance: Independent Device(s) used: none Transfer Assistance: Independent Objective Lower Extremity Assessment AROM: WFL Strength: Pt demonstrates appropriate B LE and quad strength in order to safely participate in OOB mobility Bed Mobility: NT patient up in recliner pre/post session. Transfers Sit to stand: SBA, to FWW from recliner 2x Stand to sit: SBA Denies dizziness on initial stance. Cues for hand placement on ascent and descent with carryover noted between trials. Pt requesting FWW this date. Ambulation Ambulation 1 Assistive device(s) used: none and front wheeled walker Assist level: SBA, Contact Guard Distance (ft): marching in place (limited by lines and high flow O2) - pt able to march in place one trial for 2 minutes with FWW and 1 minute with no device Quality of gait: Pt demonstrates full B foot clearance during marching, increased step height with use of FWW, no true LOB or instability with or without device Pt tolerated 2 minutes standing prior to seated rest break after completing LB dressing in sitting/standing as SpO2 decreased to 85%. Cues for pursed lip breathing and able to return to >90% within 1 minute. Pt then tolerated a continuous 8 minutes standing with and without marching as well as with and without UE support and SpO2 maintained >89%. Pt demonstrates ability to dual task and communicate with therapists while using FWW and maintain SpO2. Increased attention to task with no device noted. Outcome Measures AM-PAC How much HELP from another person do you currently need Turning from your back to your side while in a flat bed without using bedrails?: A Little Moving from lying on your back to sitting on the side of a flat bed without using bedrails?: A Little Moving to and from a bed to a chair (including a wheelchair)?: A Little Standing up from a chair using your arms (wheelchair or bedside chair)?: A Little Walking in a hospital room?: A Little Stair climbing assessed?: No AM-PAC Inpatient Mobility Raw Score (No Stairs) : 15 Plan Pt would benefit from skilled acute PT services to address Strengthening, Balance Training, Functional Mobility Training, Endurance Training, Gait Training, Stair Training, Neuromuscular Re-Education Training, Safety Education and Training, Patient/Caregiver Training, and Equipment Evaluation/Education. Frequency: 8 visits Barriers: Decreased endurance Safety/Education Safety Safety Devices in place: All fall risk precautions in place, call light within reach, left in chair, gait belt, patient at risk for falls, nurse notified, and no alarms engaged upon entry Restraints: N/A Education Education Given To: patient Education Provided: PT Role, PT Goals, Gait Training, Plan of Care, Precautions, Transfer Training, Energy Conservation, Equipment, Fall Prevention Education, Discharge Recommendations, Benefits of Increasing Activity, and Breathing Techniques Education Method: Verbal, Demonstration, and Teach Back Barriers to Learning: None Education Outcome: Verbalized Understanding, Demonstrated Understanding, and Continued Education Needed Goals Patient Stated Goal: Patient states she wants to get better and get home. Encounter Problems Encounter Problems (Active) Balance Patient will maintain dynamic standing balance for 5 minutes with modified independence in order to demonstrate decreased risk of falling. Start: 11/02/23 Expected End: 11/09/23 Exercise Patient will complete lower extremity exercises for 1-2 sets / 10 reps in order to improve strength and activity tolerance for mobility. Start: 11/02/23 Expected End: 11/09/23 Mobility Patient will ambulate 100 feet with modified independence and least restrictive device in order to improve safety and independence with mobility. Start: 11/02/23 Expected End: 11/09/23 Patient will ascend and descend 3 stairs with one railing and supervision in order to safely negotiate home. Start: 11/02/23 Expected End: 11/09/23 Transfers Patient will perform bed mobility with modified independence in order to improve independence and prepare for out of bed mobility. Start: 11/02/23 Expected End: 11/09/23 Patient will complete functional transfers with least restrictive device with modified independence in order to prepare for ambulation. Start: 11/02/23 Expected End: 11/09/23 Therapy Time Individual Co-treatment Time In 0925 Time Out 0958 Minutes 33 Timed Code Treatment Minutes: 12 Minutes (theract x 1) Margaret Case PT Patient's Physical Therapy Plan of Care supervision is transferred to a [facility] Physical Therapist. Goals and/or treatment plan was established in collaboration with patient/family/other representatives. Images from the original note were not included. OCCUPATIONAL THERAPY [facility] Initial Evaluation Name/MRN: Ember Buitrago ([id number]) Evaluation Date: 11/02/2023 Date of : 1960 Admission Date: 10/31/2023 4:24 PM Age: 63 y.o. Room/Bed: 222-08/222-08 A Discharge Recommendation: Home with Home health OT, Home with assist PRN Assessment IMPRESSION: Pt admitted with SOB and unresponsiveness, found to have respiratory failure, AE COPD and coronavirus. Prior to admission, pt was independent in ADLs, functional transfers and mobility with no device. Pt now requires SBA-min A for ADLs, and SBA for functional transfers and SBA-CGA for marching/standing with and without fww. Pt is limited by impaired balance and endurance. Pt should benefit from skilled OT services in order to increase safety and independence in occupational participation. Performance Deficits /Impairments: Decreased Functional Mobility, Decreased ADL status, Decreased Endurance, Decreased Balance, and Decreased High Level IADLs Prognosis: Good Decision Making: Medium Complexity Subjective Pt pleasant and cooperative. Per RN, ok for pt to participate in OT eval. Co-eval with PT for safety. Observation: ICU tele, continuous O2 monitoring, high flow at 50% FiO2 and 45 L O2 Vitals SpO2 85 - 93% Pain: Pt denies any current pain. Past Medical History: Past Medical History: Diagnosis Date COPD (chronic obstructive pulmonary disease) ([facility]) Hypertension Polyp at cervical os SOB (shortness of breath) Tobacco abuse Tobacco abuse counseling Past Surgical History: Past Surgical History: Procedure Laterality Date APPENDECTOMY CATARACT EXTRACTION W/ INTRAOCULAR LENS IMPLANT Left 04/17/2019, 02/2022 CATARACT EXTRACTION W/ INTRAOCULAR LENS IMPLANT Right 04/03/2019, 02/2022 dr garnica COLONOSCOPY 2016 LUNG SURGERY Right 09/2021 went in and cleaned out TONSILLECTOMY (HISTORICAL) Admission Diagnosis: Patient Active Problem List Diagnosis Date Noted Respiratory failure (HCC) 10/31/2023 Dependent edema 10/15/2023 Swelling of left foot 2023 COPD exacerbation ([facility]) 01/21/2023 Type 2 diabetes mellitus without complication, without long-term current use of insulin ([facility]/HCC) (HCC) 07/28/2022 Hepatic cyst 05/25/2022 Chronic hypoxemic respiratory failure (HCC) 05/11/2022 Episode of recurrent major depressive disorder ([facility]) 04/20/2022 COPD (chronic obstructive pulmonary disease) (HCC) 12/31/2021 COPD with acute exacerbation ([facility]) 08/29/2021 Posterior capsular opacification visually significant, left eye 12/26/2020 Hypertriglyceridemia 12/20/2020 Anxiety 10/31/2019 History of tobacco abuse 09/06/2019 Hypertension 02/22/2017 Medical Precautions: Droplet Proper PPE donned/doffed in accordance with facility standards. Fall Risk: Orellana Fall Risk Score: 30 (Medium Risk) Precautions/Restrictions: N/A Family/Caregiver Present: none Overall Cognitive Status: WFL Overall Orientation Status: Oriented x4 Social/Functional History Patient admitted from home. Lives With: Spouse Type of Home: single family home Home Layout: Two Level Home and Able to Live on Main Level Home Access: Stairs to Enter with Rails (# of stairs: 3) Bathroom Shower/Tub: Tub/Shower Combo and Shower Chair with Back Toilet: Handicap Height Home Equipment: none Homemaking Responsibilities: Independent Receives Help From: Spouse Active Gate Keeper: Yes Prior Level of Function ADL Assistance: Independent Ambulation Assistance: Independent Transfer Assistance: Independent Objective ADLs LE Dressing: SBA, Min Assist, Pt able to thread BLE into briefs with increased time to complete and flexion at hips without physical assist. Pt able to thread LLE into pants, however, required assist to thread RLE into pants, pt able to hike past hips in standing with SBA at fww. Upper Extremity Assessment AROM: WFL PROM: WFL Strength: WFL Vision: wears glasses for reading and and are NOT being used during the eval Hearing: normal Bed Mobility NT in recliner pre/post session. Transfers/Functional Mobility Sit to stand: SBA Stand to sit: SBA Standing balance: SBA, Contact Guard Pt completed marching in place one trial for 2 minutes with FWW and 1 minute with no device with no LOB noted. Pt unable to ambulate further d/t high flow O2. Pt completed 2 minutes standing with fww prior to seated rest break d/t SpO2 desaturating to 85%. Cues for pursed lip breathing and able to return to >90% within 1 minute. Pt then completed 8 minutes standing with and without marching as well as with and without fww and SpO2 maintained >89%. Device(s) used: none and front wheeled walker AM-PAC AM-PAC Inpatient Daily Activity Raw Score: 19 ADL Inpatient CMS G-Code Modifier: CK Plan Pt would benefit from skilled acute OT services to address Balance Training, Functional Mobility Training, Endurance Training, Safety Education and Training, Patient/Caregiver Training, Equipment Evaluation/Education, Positioning, Self-Care/ADL Training, and Home Management Training. Frequency: 7 visits during current hospital admission or until additional recommendations are made Barriers: Decreased endurance Prognosis: good Safety/Education Safety Safety Devices in place: All fall risk precautions in place, call light within reach, left in chair, gait belt, patient at risk for falls, nurse notified, and no alarms engaged upon entry Restraints: No Education Education Given To: patient Education Provided: OT Role, Plan of Care, ADL Adaptive Strategies, Transfer Training, Equipment, Discharge Recommendations, Benefits of Increasing Activity, and Breathing Techniques Education Method: Verbal Barriers to Learning: None Education Outcome: Verbalized Understanding, Demonstrated Understanding, and Continued Education Needed Goals Patient Stated Goal: to go home Encounter Problems Encounter Problems (Active) Balance Patient will tolerate standing for 3 minutes mod I at LRD to allow increased independence in ADLs. Start: 11/02/23 Expected End: 11/16/23 Dressing Upper Extremities Patient will complete upper body ADLs mod I. Start: 11/02/23 Expected End: 11/16/23 Dressings Lower Extremities Patient will complete lower body ADLs mod I. Start: 11/02/23 Expected End: 11/16/23 Mobility Patient will demonstrate functional ambulation mod I with LRD. Start: 11/02/23 Expected End: 11/16/23 Toileting Patient will complete toileting tasks at standard toilet with modified independence. Start: 11/02/23 Expected End: 11/16/23 Transfers Patient will complete functional transfer with least restrictive device with modified independence in order to prepare for ambulation. Start: 11/02/23 Expected End: 11/16/23 Therapy Time Individual Co-treatment Time In 09 Time Out 0957 Minutes 32 Timed Code Treatment Minutes: 11 Minutes (1 ADL) Uzma Rai OT Patient's Occupational Therapy Plan of Care supervision is transferred to a [facility] Occupational Therapist. Goals and/or treatment plan was established in collaboration with patient/family/other representatives. ICU Progress Note Name: Kendra Buitrago : 1960(63 y.o.) Date: 11/02/23 Team: MICU Attending: Mahesh Phipps Chief Complaint: Acute Respiratory Failure Subjective: Hospital Summary: 63 yo F PMH chronic respiratory failure on 4LNC baseline, COPD/emphysema, HTN, tobacco abuse who presented with shortness of breath and syncope. Noted to have change in sputum (usually clear now green) and started on steroids and antibiotics for AECOPD. Started on NIV and transitioned to HFNC during the day. Interval Events: Patient seen and examined. Awake, alert, oriented, following commands. Tolerating HFNC without issue. Non-labored breathing. Still with cough, denies fevers or chills. Scheduled Meds:cefTRIAXone, 1,000 mg, IntraVENous, q24h enoxaparin, 40 mg, SubCUTAneous, Daily ipratropium-albuterol, 3 mL, Nebulization, q4h melatonin, 5 mg, Oral, Nightly methylPREDNISolone sod suc (PF), 40 mg, IntraVENous, q6h pantoprazole, 40 mg, Oral, Nightly Or pantoprazole (ProtoNix) 40 mg in sodium chloride (PF) 0.9 % 10 mL injection, 40 mg, IntraVENous, Nightly sennosides, 1 tablet, Oral, Nightly sertraline, 100 mg, Oral, Daily Continuous Infusions: Objective: Last Vitals: BP MAP 145/64 (11/02/23 0703) 87 (11/02/23 0703) Arterial BP MAP Temp 36.7 C (98 F) (11/02/23 0720) Pulse 87 (11/02/23 0720) Resp 18 (11/02/23 0720) SpO2 93 % (11/02/23 0720) Weight 87.7 kg (193 lb 4.8 oz) (11/02/23 0334) BMI Body mass index is 30.28 kg/m . I/O: 10/31 699 - 11/01 0559 In: 1500 [P.O.:1500] Out: 450 [Urine:450] Ventilator: Resp Rate (Set): 14 FiO2 (%): 65 % Inspiratory Time (sec): 0.8 sec Oxygen Delivery: O2 Flow Rate (L/min): 45 L/min Invasive Lines / Tubes / Drains: Peripheral IV 11/01/23 Posterior;Right Forearm (Active) Number of days: 0 Central Line Indication: NA - patient does not have a central line Jamil Indications: NA - patient does not have a Jamil catheter Restraints: NA - patient is not restrained. Wounds: Constitutional: General Appearance [x]WDWN []Obese []Cachectic []Thin []Ill Eyes: Inspection of Pupils/Irises Pupils round and react: [x]Yes []No Sclera: []Icteric [x]Non-Icteric Inspection of Conjunctiva/Lids Conjunctiva: []Injected [x]Non-Injected Lids: [x]Intact []Lesion Present ENT/Mouth: External Inspection of ears/nose [x] Normal [] Scar/Lesion/Mass Inspection of teeth/lips/gums Dentition: [][place] Teeth []Dentures Lips/Gums: [x]Intact []Lesion Present Mucosa: [x][place] [x]Moist []Dry Neck: External Appearance Overall Appearance: [x]Normal []Lesion/Mass/Crepitus Present Trachea midline: [x]Yes []No Thyroid [x]Normal []Enlarged []Tender []Mass []Absent Respiratory: Respiratory effort []Labored [x]Non-Labored [] Mechanically-Ventilated Auscultation []Clear []Crackles []Wheezes [x]Rhonchi Cardiovascular: Auscultation Rate: [x]Regular []Irregular []Tachycardia []Bradycardia Rhythm: [x]Regular []Irregular Murmur: []Present [x]Absent Extremities Peripheral Edema: []Present [x]Absent Varicosities: []Present []Absent Gastrointestinal: Abdomen Palpation: [x]Soft []Firm []Tender [x]Non-Tender []Distended [x]Non-distended Mass: []Present [x]Absent Bowel Sounds: [x]Present []Absent Hernia: []Present []Absent Liver/Spleen: []Hepatosplenomegaly []Organomegaly Absent Musculoskeletal: Inspection of Digits and Nails Cyanosis: []Present [x]Absent Clubbing: []Present [x]Absent Ischemia: []Present [x]Absent Infection: []Present [x]Absent Extremities ARMSTRONG Equally: Except ([]RUE []RLE []LUE []LLE) Strength/Tone: Intact and Normal ([x]RUE [x]RLE [x]LUE [x]LLE) Skin: Inspection [x]Normal []Rash []Lesion []Ulcer Palpation [x]Warm []Cool []Dry []Clammy []Nodules []Induration []Skin-tightening Cap-Refill: [x] <3 sec [] >3 seconds (delayed) Neurologic: GCS EYE: 4 - Opens spontaneously GCS MOTOR: 6 - Obeys commands for movement GCS VERBAL: 5 - Oriented to person, place, time Total GCS: 15 [x] Sensation grossly intact Psych: Mental Status Alert: [x]Yes [] No Oriented: []x0 []X1 []X2 [x]x3 Mood/Affect [x]Normal []Flat []Agitated []Depressed []Anxious []Calm []Sedated []NAD Select Labs within last 24 hours- BMP: Recent Labs 10/31/23163611/01/2352711/02/23333 NA 137 137 136 K 3.8 3.9 3.9 CL 93* 91* 93* CO2 40* 37* 34* BUN 21* 38* 43* CREATININE 0.79 1.10* 0.73 CALCIUM 9.8 9.3 9.0 MG -- 2.5* 2.3 PHOS -- 4.3 4.3 LFTs: Recent Labs 10/31/23163611/01/2352711/02/23 033 AST 32 22 23 ALT 29 29 29 PROT 8.0 7.1 6.8 ALBUMIN 4.2 3.9 3.7 BILITOT 0.9 0.6 0.5 ALKPHOS 82 75 62 Glucose: Recent Labs 10/31/23163611/01/2352711/02/23 0334 GLUCOSE 265* 204* 226* Procal: Recent Labs 10/31/232001 PROCAL 0.55* CBC: Recent Labs 10/31/23163611/01/2352711/02/23 033 WBC 17.6* 12.7* 13.9* HGB 16.2* 14.4 13.3 HCT 50.6* 46.3 41.7 PLT 254 234 237 MCV 96.9 96.3 95.4 RDW 12.8 12.9 12.7 ABGs: Recent Labs 10/31/23163610/31/23194311/01/23 0355 PHART -- 7.280* 7.321* [id number] -- 88.3* 82.5* PO2ART -- 64.0* 65.1* [id number] -- 41.5* 42.6* SO2ART -- 87.2* 89.0* [id number] Bi-PAP -- -- Lactic Acid: No results for input(s): LACTATE in the last 72 hours. INR: No results for input(s): INR in the last 72 hours. Cardiac Injury Profile: Recent Labs 10/31/23 1637 10/31/23200110/31/23 2312 TROPONINI <0.012 0.040* 0.036* Labs in Last 3 months: No results found for: TSH, VITD25, PSA, INR, GLUF Microbiology- Urine Cx: No results found for: URINECX Blood Cx: No results found for: BLOODCX Sputum Cx: Lab Results Component Value Date RESPCULT Culture in progress 11/01/2023 Gram Stain: Lab Results Component Value Date LABGRAM Rare Epithelial cells per low power field (A) 11/01/2023 LABGRAM (A) 11/01/2023 Many Polymorphonuclear leukocytes per low power field LABGRAM Few Gram positive cocci in clusters (A) 11/01/2023 LABGRAM Few Gram positive bacilli (A) 11/01/2023 LABGRAM Rare Gram negative bacilli (A) 11/01/2023 PNA PCR: Lab Results Component Value Date HUMANMETAPNE Not Detected 11/01/2023 COVID19: No results found for: COVID19 Legionella Ag: Lab Results Component Value Date LEGIONELLAPN Not Detected 11/01/2023 Strep Ag: No results for input(s): STREPPNEUMO in the last 72 hours. Imaging- CT Chest 11/02/2023 - basilar atelectasis/infiltrate bilaterally in setting of COPD/emphysematous changes. 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 NIV transitioned to auto bipap overnight with nasal pillows. - PNA PCR with h. Influenzae and coronavirus. Continue Ceftriaxone. - BNP low, does not appear volume overloaded - check CT chest given slow improvement. CT with evidence of atelectasis in lower lobes bilaterally in setting of upper lobe predominant emphysematous changes. Suspect she is sensitive to V/Q mismatching and infiltrates noted in bilateral lower lobes are affecting oxygen exchange. Start chest PT and incentive spirometer to assist with atelectasis. Start guaifenesin to assist with clearance of secretions. - continue antibiotics/steroids at this time. Clinically improving however still with high oxygen requirements. SpO2 goal >88. - continue autoBiPAP at bedtime and with naps. - PT/OT - Advance diet as tolerated. GI Prophylaxis: Pantoprazole PO DVT Prophylaxis: Lovenox 40 q 24hr - creatinine clearance >30 Disposition: Remain in ICU Total critical care time caring for this patient with life threatening, unstable organ failure, including direct patient contact, management of life support systems, review of data including imaging and labs, discussions with other team members and physicians is 34 minutes excluding procedures. [facility] Respiratory Care Department Progress Note Comment or reasoning for refusal: Patient was seen in attempts to fulfill CPAP/BiPAP/AutoPAP order. Patient refused PAP therapy/study at this time. Patient was educated on medical need and reasoning for physician order to ensure patient was making an informed medical decision. All of the patient's questions were answered at this time and patient was informed that if the patient changes their mind regarding wearing PAP to hit their call light or inform their nurse to contact Respiratory. A second, consecutive night of refusing PAP therapy/study results in order completion in the EMR. If future CPAP/BiPAP/AutoPAP therapy or study is indicated please place another order in the EMR and the assigned Respiratory Therapist will reattempt to fulfill orders. Reason for refusal: says [facility] is working fine Thank you for involving Respiratory in the care of this patient, ICU Progress Note Name: Kendra Buitrago : 1960(63 y.o.) Date: 11/01/23 Team: MICU Attending: Mahesh Phipps Chief Complaint: Acute Respiratory Failure Subjective: Hospital Summary: 63 yo F PMH chronic respiratory failure on 4LNC baseline, COPD/emphysema, HTN, tobacco abuse who presented with shortness of breath and syncope. Noted to have change in sputum (usually clear now green) and started on steroids and antibiotics for AECOPD. Started on NIV overnight and transitioned to IA salter during the day. Interval Events: Patient seen and examined. Awake, alert, oriented, following commands. Desaturations noted with conversation. Reports feeling improved however does get winded easily with exertion. Up to chair however still requiring significant amount of oxygen. Non-labored. Still with productive green cough. Scheduled Meds:azithromycin, 500 mg, IntraVENous, q24h cefTRIAXone, 1,000 mg, IntraVENous, q24h enoxaparin, 40 mg, SubCUTAneous, Daily ipratropium-albuterol, 3 mL, Nebulization, q4h melatonin, 5 mg, Oral, Nightly methylPREDNISolone sod suc (PF), 40 mg, IntraVENous, q12h Continuous Infusions: Objective: Last Vitals: BP MAP 117/60 (11/01/23 0802) 79 (11/01/23 08) Arterial BP MAP Temp 36.2 C (97.2 F) (11/01/23 0725) Pulse 81 (11/01/23 0802) Resp 19 (11/01/23 08) SpO2 90 % (11/01/23 08) Weight BMI Body mass index is 30.23 kg/m . I/O: 10/30 0700 - 10/31 0659 In: 300 Out: - Ventilator: Resp Rate (Set): 14 FiO2 (%): 55 % Inspiratory Time (sec): 0.8 sec Oxygen Delivery: O2 Flow Rate (L/min): 10 L/min Invasive Lines / Tubes / Drains: Peripheral IV 10/31/23 Left Wrist (Active) Number of days: 0 Central Line Indication: NA - patient does not have a central line Jamil Indications: NA - patient does not have a Jamil catheter Restraints: NA - patient is not restrained. Wounds: Constitutional: General Appearance [x]WDWN []Obese []Cachectic []Thin []Ill Eyes: Inspection of Pupils/Irises Pupils round and react: [x]Yes []No Sclera: []Icteric [x]Non-Icteric Inspection of Conjunctiva/Lids Conjunctiva: []Injected [x]Non-Injected Lids: [x]Intact []Lesion Present ENT/Mouth: External Inspection of ears/nose [x] Normal [] Scar/Lesion/Mass Inspection of teeth/lips/gums Dentition: [][place] Teeth []Dentures Lips/Gums: [x]Intact []Lesion Present Mucosa: [x][place] [x]Moist []Dry Neck: External Appearance Overall Appearance: [x]Normal []Lesion/Mass/Crepitus Present Trachea midline: [x]Yes []No Thyroid [x]Normal []Enlarged []Tender []Mass []Absent Respiratory: Respiratory effort []Labored [x]Non-Labored [] Mechanically-Ventilated Auscultation []Clear []Crackles [x]Wheezes [x]Rhonchi Cardiovascular: Auscultation Rate: [x]Regular []Irregular []Tachycardia []Bradycardia Rhythm: [x]Regular []Irregular Murmur: []Present [x]Absent Extremities Peripheral Edema: []Present [x]Absent Varicosities: []Present []Absent Gastrointestinal: Abdomen Palpation: [x]Soft []Firm []Tender [x]Non-Tender []Distended [x]Non-distended Mass: []Present [x]Absent Bowel Sounds: [x]Present []Absent Hernia: []Present []Absent Liver/Spleen: []Hepatosplenomegaly []Organomegaly Absent Musculoskeletal: Inspection of Digits and Nails Cyanosis: []Present [x]Absent Clubbing: []Present [x]Absent Ischemia: []Present [x]Absent Infection: []Present [x]Absent Extremities ARMSTRONG Equally: Except ([]RUE []RLE []LUE []LLE) Strength/Tone: Intact and Normal ([x]RUE [x]RLE [x]LUE [x]LLE) Skin: Inspection [x]Normal []Rash []Lesion []Ulcer Palpation [x]Warm []Cool []Dry []Clammy []Nodules []Induration []Skin-tightening Cap-Refill: [x] <3 sec [] >3 seconds (delayed) Neurologic: GCS EYE: 4 - Opens spontaneously GCS MOTOR: 6 - Obeys commands for movement GCS VERBAL: 5 - Oriented to person, place, time Total GCS: 15 [x] Sensation grossly intact Psych: Mental Status Alert: [x]Yes [] No Oriented: []x0 []X1 []X2 [x]x3 Mood/Affect [x]Normal []Flat []Agitated []Depressed []Anxious []Calm []Sedated []NAD Select Labs within last 24 hours- BMP: Recent Labs 10/31/23 16311/01/23 0528 NA 137 137 K 3.8 3.9 CL 93* 91* CO2 40* 37* BUN 21* 38* CREATININE 0.79 1.10* CALCIUM 9.8 9.3 MG -- 2.5* PHOS -- 4.3 LFTs: Recent Labs 10/31/23 16311/01/23 0528 AST 32 22 ALT 29 29 PROT 8.0 7.1 ALBUMIN 4.2 3.9 BILITOT 0.9 0.6 ALKPHOS 82 75 Glucose: Recent Labs 10/31/23 1637 11/01/23 0528 GLUCOSE 265* 204* Procal: Recent Labs 10/31/232001 PROCAL 0.55* CBC: Recent Labs 10/31/23 16311/01/23 0528 WBC 17.6* 12.7* HGB 16.2* 14.4 HCT 50.6* 46.3 PLT 254 234 MCV 96.9 96.3 RDW 12.8 12.9 ABGs: Recent Labs 10/31/23163610/31/23 19411/01/23 0355 PHART -- 7.280* 7.321* [id number] -- 88.3* 82.5* PO2ART -- 64.0* 65.1* [id number] -- 41.5* 42.6* SO2ART -- 87.2* 89.0* [id number] Bi-PAP -- -- Lactic Acid: No results for input(s): LACTATE in the last 72 hours. INR: No results for input(s): INR in the last 72 hours. Cardiac Injury Profile: Recent Labs 10/31/23 1637 10/31/23200110/31/23 2312 TROPONINI <0.012 0.040* 0.036* Labs in Last 3 months: No results found for: TSH, VITD25, PSA, INR, GLUF Microbiology- Urine Cx: No results found for: URINECX Blood Cx: No results found for: BLOODCX Sputum Cx: No results found for: RESPCULT Gram Stain: No results found for: LABGRAM PNA PCR: Lab Results Component Value Date HUMANMETAPNE Not Detected 10/31/2023 COVID19: No results found for: COVID19 Legionella Ag: No results found for: LEGIONELLAPN Strep Ag: No results for input(s): STREPPNEUMO in the last 72 hours. Imaging- CXR 11/01/2023 Lungs: Coarse interstitial lung changes similar to previous. Interval subsegmental atelectasis right lower lobe. Consider elements of fibrosis, edema or infiltrate.. Limited due to portable technique. Consider follow-up with PA and lateral chest for persistent symptoms. 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 - tolerated NIV overnight, transitioned to salter this morning. Still with conversational dyspnea and hypoxia. - still with productive sputum. - PNA PCR and respiratory culture pending. - BNP low, does not appear volume overloaded - continue antibiotics/steroids at this time. Clinically improving however still with high oxygen requirements. SpO2 goal >88. - continue BiPAP at bedtime and with naps. - if no improvement may need further CT imaging for better evaluation of lung parenchyma. GI Prophylaxis: None DVT Prophylaxis: Lovenox 40 q 24hr - creatinine clearance >30 Disposition: Remain in ICU Status Critical Care Time: 35 minutes Total critical care time caring for this patient with life threatening, unstable organ failure, including direct patient contact, management of life support systems, review of data including imaging and labs, discussions with other team members and physicians, excluding procedures. documented in this encounter [facility] 11-09-2023 Nurse Note Ordered morning labs sent to lab at this time. Patient is in bed, and appears to be sleeping at this time. Patient does not appear to be in any respiratory distress at this time. Standard precautions and fall precautions reviewed and implemented. Bed brakes locked, bed in lowest position, call light within reach, bed alarm activated. Will continue to monitor patient to ensure patient safety. This nurse notified Dr. Pires that patient is requesting Albuterol inhaler. Patient is ordered Albuterol nebulizer at this time. Patient denies any shortness of breath at this time. Waiting on further orders. Will continue to monitor patient to ensure patient safety. Patient alert and oriented x 4. Patient is in bed, resting comfortably at this time. Patient assessed at this time. Patient is calm and cooperative. Patient has diminished lung sounds upon auscultation. Patient has dyspnea on exertion. Patient has a non productive cough. Patient is on 7 liters high flow. Patient does not appear to be in any respiratory distress at this time. Patients abdomen is soft, round, non distended, non tender with active bowel sounds. Patient has generalized edema. Patient has non pitting edema to bilateral lower extremities. Patient has generalized weakness. Patient has scattered bruising. Patient denies any pain at this time. Fall and standard precautions reviewed and implemented at this time. Bed in the lowest position, bed brakes locked, call light within reach, bed alarm activated. Will continue to monitor patient to ensure patient safety. This nurse received bed side shift report at this time. Patient is resting in bed, watching television at this time. Patient denies any needs at this time. Patient does not appear to be in any respiratory distress at this. Fall precautions reviewed and implemented. Bed brakes locked, bed in lowest position, call light within reach, bed alarm activated. Will continue to monitor patient to ensure patient safety. Dr. Phipps at bedside. Orders recieved Back from CT To CT with RN, classroom monitor and ACLS kit documented in this encounter [facility] 11-04-2023 Telephone encounter Note Error [facility] [employer] Work Phone: 11-04-2023 Miscellaneous Notes Error documented in this encounter [facility] 11-02-2023 Telephone encounter Note Prescription Request: Last medication check: 07/28/2022 Last physical exam: 07/23/2023 Next scheduled appointment: 01/21/2024 Last date of refill on this medication: 09/16/2023 [facility] 11-02-2023 Miscellaneous Notes Prescription Request: Last medication check: 07/28/2022 Last physical exam: 07/23/2023 Next scheduled appointment: 01/21/2024 Last date of refill on this medication: 09/16/2023 documented in this encounter [facility] 10-31-2023 History and physical note Images from the original note were not included. Critical Care Initial Visit Note CC: Chief Complaint Patient presents with Respiratory Distress HPI: Ember Buitrago is a 63F hx chronic respiratory failure on 4L NC baseline due to COPD, hypertension, active tobacco use/abuse who presented to the ED on 10/30 with shortness of breath and unresponsiveness. The patient states she was feeling short of breath, coughing green sputum, having chills and rigors without measured fever, and having pleuritic/ribs pain under her left breast for 2-3 days. She was about to report to the emergency department when she realized she had insufficient oxygen supplies to transport herself so her called EMS. While awaiting EMS, she developed unresponsiveness and her started CPR. Upon EMS arrival, the patient had a pulse but was still unresponsive. She presented to [facility] ED where she was notably hypoxic and placed on PAP and treated with steroids and bronchodilators. Workup revealed acidosis, elevated serum bicarbonate, and leukocytosis. Her mental state improved with PAP therapy. The ICU service was contacted for admission and she was subsequently transferred to [facility]. History: PMH: Past Medical History: Diagnosis Date COPD (chronic obstructive pulmonary disease) (HCC) Hypertension Polyp at cervical os SOB (shortness of breath) Tobacco abuse Tobacco abuse counseling FH: family history includes Heart attack in her father; High Blood Pressure in her mother. SH: Social History Socioeconomic History Marital status: Spouse name: Not on file Number of children: Not on file Years of education: Not on file Highest education level: Not on file Occupational History Not on file Tobacco Use Smoking status: Every Day Packs/day: .5 Types: Cigarettes Smokeless tobacco: Never Vaping Use Vaping Use: Never used Substance and Sexual Activity Alcohol use: No Alcohol/week: 0.0 standard drinks of alcohol Drug use: No Sexual activity: Yes Partners: Male Other Topics Concern Not on file Social History Narrative Not on file Social Determinants of Health Financial Resource Strain: Low Risk (07/23/2023) Overall Financial Resource Strain (CARDIA) Difficulty of Paying Living Expenses: Not hard at all Food Insecurity: No Food Insecurity (07/23/2023) Hunger Vital Sign Worried About Running Out of Food in the Last Year: Never true Ran Out of Food in the Last Year: Never true Transportation Needs: No Transportation Needs (07/23/2023) PRAPARE - Transportation Lack of Transportation (Medical): No Lack of Transportation (Non-Medical): No Physical Activity: Inactive (07/23/2023) Exercise Vital Sign Days of Exercise per Week: 0 days Minutes of Exercise per Session: 0 min Stress: Not on file Social Connections: Not on file Intimate Partner Violence: Not on file Housing Stability: Low Risk (07/23/2023) Housing Stability Vital Sign Unable to Pay for Housing in the Last Year: No Number of Places Lived in the Last Year: 1 Unstable Housing in the Last Year: No ROS: Per HPI. ROS was completed and is otherwise negative. Objective Findings: Vitals: BP 124/60 Pulse 86 Temp (!) 35.9 C (96.6 F) (Tympanic) Resp 18 SpO2 93% No intake or output data in the 24 hours ending 10/31/232010 EXAM: PHYSICAL EXAM: General Appearance: [x]No acute distress on PAP, mildly tachypneic []Obese []Cachectic []Thin [x]ill Skin: Temperature [x]Warm []Cool Rash []Yes [x]No Tattoo(s) []Yes [x]No HEENT: Pupils round and react [x]Yes []No Sclera []Icteric [x]Non-Icteric Conjunctiva [x]Normal []Pale Pinnae [x]Normal []Other Oral Mucosa [x][place] []Moist [x]Dry Oral ETT []Present [x]Absent Neck: Supple [x]Yes []No Thyromegaly []Yes [x]No Crepitus []Present [x]Absent Jvd []Present [x]Absent Lungs: []Clear []Crackles [x]Wheezes []Rhonchi Respiratory effort [x]Labored mildly tachypneic []Non-Labored Equal chest rise [x]Yes []No Trachea midline [x]Yes []No Heart: Rate [x]Regular []Irregular []Tachycardia []Bradycardia Rhythm [x]Sinus []Irregular Murmur []Present [x]Absent Capillary Refill [x]<2 sec []>2 sec Peripheral Pulses [x]Strong []Weak []Absent Abdomen: [x]Soft Bowel Sounds []Present []Absent []Tender [x]Non-Tender []Distended [x]Non-distended Hernia []Present [x]Absent Organomegaly []Present [x]Absent Mass []Present [x]Absent Extremities: Cyanosis []Present [x]Absent ARMSTRONG ([x]RUE [x]RLE [x]LUE [x]LLE) Clubbing []Yes [x]No Edema []Yes [x]No L tibial IO Neurologic: Alert [x]yes []no Oriented []x0 []x1 []x2 [x]x3 [place] []Yes [x]No Follows Commands [x]Yes []No []Unresponsive to verbal [x]Cranial nerves grossly intact [x]Sensation grossly intact Psych: Affect [x]Normal []Flat []Agitated []Anxious [x]Calm []Sedated []NAD Hallucinations []Yes [x]No Medications: Scheduled Meds: albuterol, , , azithromycin, 500 mg, IntraVENous, q24h cefTRIAXone, 1,000 mg, IntraVENous, q24h enoxaparin, 40 mg, SubCUTAneous, Daily ipratropium-albuterol, 3 mL, Nebulization, q4h methylPREDNISolone sod suc (PF), 40 mg, IntraVENous, q12h PRN Meds: PRN medications: albuterol, albuterol, ondansetron ODT OR ondansetron Results: CBC: Recent Labs 10/31/23 1637 WBC 17.6* HGB 16.2* HCT 50.6* MCV 96.9 PLT 254 BMP: Recent Labs 10/31/23 1637 NA 137 K 3.8 CL 93* CO2 40* BUN 21* CREATININE 0.79 LIVER PROFILE: Recent Labs 10/31/23 1637 AST 32 ALT 29 BILITOT 0.9 ALKPHOS 82 Diagnostics: 10/30 CXR: A single portable AP radiograph of the chest was obtained. The heart is borderline in size. The mediastinal silhouette is normal. Chronic interstitial changes are present. There are no effusions or acute infiltrates. There is no pleural thickening. The osseous structures are unremarkable. IMPRESSION: Chronic changes. No acute process. Assessment: Acute on chronic hypoxic and hypercapnic respiratory failure AECOPD, baseline severe COPD is suspected -- likely due to URI -- likely viral Leukocytosis Polycythemia Stress hyperglycemia; DMII, controlled Anxiety/depression Plan: Admit to ICU Evidence of chronic hypercapnia and hypoxia with elevated serum bicarb and polycythemia Her serum bicarb appears higher than baseline at 40 compared to previous labs (34-37) Differential includes AECOPD due to bacterial vs viral pneumonia (suspect the latter), pulmonary edema/acute heart failure (less likely) Low suspicion for sepsis/severe sepsis RVP, sputum culture, UAg, procal NIV, scheduled/prn bronchodilators, azithro/ctx, steroids Repeat chest imaging, ABG in AM Hold home meds until acute phase resolves FEN: npo, ok for sips and chips with brief breaks from NIV Prophylaxis: lovenox, SCDs Code Status: Full Critical care time spent reviewing labs/films, examining patient, collaborating with other physicians but excluding procedures for life threatening organ failure is 60 minutes. ERIC Olmos Critical Care Plan of care discussed with Dr Benz. documented in this encounter [facility] 10-31-2023 Emergency department Note [facility] call center told Ems that Dr. Lynch was taking care of transfer to [place] and was going to reroute the ambulance in route if patient had left, per Dr. Harry. Report given to [place] ICU. Jennifer Cyr RN 10/31/23 0438 Patient is now being transferred to [place] ICU per the regional call center. Patient was on the squad cot exiting the doors. Patient and family aware of admit to [facility]. Jennifer Cyr RN 10/31/23 1847 Staff called [facility] due to squad not arriving at 1800. Per [facility] it will be another hour. [facility] notified this is an ICU transfer, that needs lights and sirens. Squad is now en route from [facility]. Jennifer Cyr RN 10/31/23 1808 Attempted to call report to [facility], nurse unable to take report at this time. Number given for [facility] nurse to call when ready. Jennifer Cyr RN 10/31/23 1811 Called [facility] stranding supervisor and advised pt is now agreeable to go to [facility]. Margaret Mcmanus RN 10/31/23 1724 Received call from stranding supervisor at [facility]. He states he spoke with the , she is busy and has to do ED admits first and she is the only dr there, then will call us. He states the is also asking if we have done an ABG. At that point this RN transferred call to . Ems to answer their additional questions. Margaret Mcmanus RN 10/31/23 1718 Call placed to [facility] as pts spouse is requesting [facility]. Spoke with stranding supervisor, informed of pt on Bipap and will need ICU, who states she will give info to and have him call. Margaret Mcmanus RN 10/31/23 1709 O2 15L via inline bi pap initiated. Jennifer Cyr RN 10/31/23 1650 EMERGENCY DEPARTMENT ENCOUNTER Pt Name: Ember Buitrago Birthdate 1960 Date of evaluation: 10/31/2023 ED Provider: Kwan Harry MD CHIEF COMPLAINT No chief complaint on file. HISTORY OF PRESENT ILLNESS (Location/Symptom, Timing/Onset, Context/Setting, Quality, Duration, Modifying Factors, Severity) Note limiting factors. I wore appropriate PPE for the entirety of this encounter. HPI Ember Buitrago is a 63 y.o. who presents to the emergency department with a chief complaint of respiratory failure. EMS was originally called for shortness of breath. And route, the started CPR due to some concern about a loss pulse. However EMS reports that she had a pulse when they arrived. They are unsure if she ever did in fact lose a pulse. They report that she was not protecting her airway, and needed to be assisted with ventilation. As such, they brought her to the hospital for potential airway intervention. They drilled an IO and reported a blood glucose within normal limits. Nursing Notes were reviewed. Limitations to history: Critical medical condition Outside historians: EMS REVIEW OF SYSTEMS Review of Systems Pertinent positives and negatives as per HPI. PAST MEDICAL HISTORY Past Medical History: Diagnosis Date COPD (chronic obstructive pulmonary disease) (HCC) Hypertension Polyp at cervical os SOB (shortness of breath) Tobacco abuse Tobacco abuse counseling SURGICAL HISTORY Past Surgical History: Procedure Laterality Date APPENDECTOMY CATARACT EXTRACTION W/ INTRAOCULAR LENS IMPLANT Left 04/17/2019, 02/2022 CATARACT EXTRACTION W/ INTRAOCULAR LENS IMPLANT Right 04/03/2019, 02/2022 dr garnica COLONOSCOPY 2016 LUNG SURGERY Right 09/2021 went in and cleaned out TONSILLECTOMY (HISTORICAL) CURRENT MEDICATIONS Previous Medications ALBUTEROL (2.5 MG/3ML) 0.083% NEBULIZER SOLUTION Take 3 mL (2.5 mg) by nebulization 4 times daily as needed for wheezing or shortness of breath. ALBUTEROL 108 (90 BASE) MCG/ACT INHALER inhale 2 puff by mouth and INTO THE LUNGS every 4 hours if needed BACLOFEN (LIORESAL) 5 MG TABLET Take 1 tablet (5 mg) by mouth 2 times daily as needed for muscle spasms. BLOOD GLUCOSE MONITORING SUPPL DEVICE Check glucose fasting in am and 2 hours after evening meal. CALCIUM CARB-CHOLECALCIFEROL 600-400 MG-UNIT TABLET MOWEFR CETIRIZINE-PSEUDOEPHEDRINE (ZYRTEC-D ALLERGY & SINUS) 5-120 MG 12 HR TABLET Take 1 tablet by mouth 2 times daily. FLUTICASONE (FLONASE) 50 MCG/ACT NASAL SPRAY instill 2 sprays into each nostril at bedtime GLUCOSE BLOOD (BLOOD GLUCOSE TEST) STRIP Use as directed 3x day. IPRATROPIUM-ALBUTEROL (DUO-NEB) 0.5-2.5 MG/3 ML NEBULIZER SOLUTION INHALE 1 VIAL BY NEBULIZATION four times a day if needed for wheezing LISINOPRIL-HYDROCHLOROTHIAZIDE 20-25 MG TABLET take 1 tablet by mouth every morning MUCUS RELIEF ER 600 MG 12 HR TABLET Take 1 tablet (600 mg) by mouth 2 times daily. Do not crush, chew, or split. NAPROXEN SODIUM (ALEVE) 220 MG TABLET TWICE A DAY OMEGA-3 (FISH OIL) 1200 MG CAPSULE 1,200 capsules. OXYGEN (O2) GAS Inhale 3 L/min continuous. via nasal canula 2 liters daytime and 4 liters at night ROFLUMILAST (DALIRESP) 500 MCG TABLET Take 500 mcg by mouth daily. SERTRALINE (ZOLOFT) 100 MG TABLET take 1 tablet by mouth once daily TRELEGY ELLIPTA 100-62.5-25 MCG/INH AEROSOL POWDER INHALE 1 PUFF INTO THE LUNGS ONCE DAILY WITH GOOD ORAL CARE TRIAMTERENE-HYDROCHLOROTHIAZIDE (MAXZIDE-25) 37.5-25 MG TABLET Take 1 tablet by mouth Daily as needed (swelling). ALLERGIES Sulfa antibiotics and Sulfamethoxazole-trimethoprim FAMILY HISTORY Family History Problem Relation Name Age of Onset Heart attack Father High Blood Pressure Mother SOCIAL HISTORY Social History Socioeconomic History Marital status: Tobacco Use Smoking status: Former Packs/day: 0.50 Years: 40.00 Additional pack years: 0.00 Total pack years: 20.00 Types: Cigarettes Quit date: 01/04/2017 Years since quittin.8 Smokeless tobacco: Never Vaping Use Vaping Use: Never used Substance and Sexual Activity Alcohol use: No Alcohol/week: 0.0 standard drinks of alcohol Drug use: No Sexual activity: Yes Partners: Male Social Determinants of Health Financial Resource Strain: Low Risk (07/23/2023) Overall Financial Resource Strain (CARDIA) Difficulty of Paying Living Expenses: Not hard at all Food Insecurity: No Food Insecurity (07/23/2023) Hunger Vital Sign Worried About Running Out of Food in the Last Year: Never true Ran Out of Food in the Last Year: Never true Transportation Needs: No Transportation Needs (07/23/2023) PRAPARE - Transportation Lack of Transportation (Medical): No Lack of Transportation (Non-Medical): No Physical Activity: Inactive (07/23/2023) Exercise Vital Sign Days of Exercise per Week: 0 days Minutes of Exercise per Session: 0 min Housing Stability: Low Risk (07/23/2023) Housing Stability Vital Sign Unable to Pay for Housing in the Last Year: No Number of Places Lived in the Last Year: 1 Unstable Housing in the Last Year: No SCREENINGS PHYSICAL EXAM ED Triage Vitals Temp Heart Rate Resp BP 10/31/23161410/31/23161410/31/23161410/31/23 1622 (!) 35.9 C (96.6 F) (!) 143 (!) 30 (!) 178/77 SpO2 Temp Source Heart Rate Source Patient Position 10/31/23161410/31/23 16110/31/231614 -- (!) 83 % Tympanic Monitor BP Location FiO2 (%) -- -- General-sick appearing, toxic-appearing HEENT- atraumatic, normocephalic Neck- no meningismus, no obvious masses Respiratory- bilateral breath sounds, coarse, being bagged Cardiovascular-appears poorly perfused Abdomen- soft, non-tender, no rebound or guarding MSK- normal muscle bulk, no gross deformities Skin- non-diaphoretic, no obvious rashes or lesions Neuro-somnolent, arousable to vigorous stimulation, CN2-12 grossly intact, moving all extremities DIAGNOSTIC RESULTS Interpretation per the Radiologist below, if available at the time of this note: XR chest 1 view Final Result Chronic changes. No acute process. Report Dictated on Electronically Signed By: Tyler Storey DO Electronically Signed Date/Time: 10/31/2023 5:01 PM EDT LABS: Labs Reviewed CBC WITH AUTO DIFFERENTIAL - Abnormal Result Value Auto WBC 17.6 (*) RBC 5.22 (*) Hemoglobin 16.2 (*) Hematocrit 50.6 (*) MCV 96.9 MCH 31.0 MCHC 32.0 RDW 12.8 Platelets 254 MPV 10.0 nRBC 0.0 Neutrophils Relative 81.6 Lymphocytes Relative 6.8 (*) Monocytes Relative 9.9 Eosinophils Relative 0.1 Basophils Relative 0.3 Immature Grans % 1.3 Neutrophils Absolute 14.4 (*) Lymphocytes Absolute 1.2 Monocytes Absolute 1.8 (*) Eosinophils Absolute 0.0 Basophils Absolute 0.1 Immature Grans Absolute 0.2 (*) BLOOD GAS, VENOUS ([facility]) - Abnormal pH 7.231 (*) pCO2 98 (*) pO2 62 BASE EXCESS 14.0 (*) HCO3 41.2 (*) TCO2 44.0 (*) O2 Saturation 84.0 (*) Source Of Oxygen Bi-PAP COMPREHENSIVE METABOLIC PANEL - Abnormal SODIUM 137 POTASSIUM 3.8 CHLORIDE 93 (*) CARBON DIOXIDE 40 (*) ANION GAP 5 UREA NITROGEN 21 (*) CREATININE 0.79 GLUCOSE 265 (*) CALCIUM 9.8 AST (SGOT) 32 ALT 29 ALKALINE PHOSPHATASE 82 ALBUMIN 4.2 BILIRUBIN, TOTAL 0.9 TOTAL PROTEIN 8.0 eGFR 83.1 TROPONIN, WITH SERIAL REFLEX - Normal TROPONIN I <0.012 Narrative: Patients with high levels of Biotin oral intake (ie >5 mg/day) may have falsely decreased Troponin levels. NT PRO BNP - Normal NT PRO BNP 188 COMPREHENSIVE METABOLIC PANEL WITH MG REFLEX Narrative: The following orders were created for panel order Comprehensive Metabolic Panel with Mg Reflex. Procedure Abnormality Status --------- ------ Comprehensive metabolic p...[[id number]] Abnormal Final result Please view results for these tests on the individual orders. All other labs were within normal range or not returned as of this dictation. EMERGENCY DEPARTMENT COURSE/Reval Vitals: Vitals: 10/31/23 1636 10/31/23 1642 10/31/23 1652 10/31/23 1700 BP: 139/65 128/61 127/54 124/59 Pulse: (!) 116 (!) 112 107 101 Resp: Temp: TempSrc: SpO2: 96% 95% 96% 97% Diagnoses as of 10/31/23 172 Respiratory failure (HCC) Medications albuterol (2.5 MG/3ML) 0.083% nebulizer solution - Pyxis ADS Override Pull (has no administration in time range) methylPREDNISolone sodium succinate (PF) (SOLU-Medrol) injection 125 mg (125 mg IntraVENous Given 10/31/23 1631) EPINEPHrine (Adrenalin) injection 0.3 mg (0.3 mg IntraMUSCular Given 10/31/23 1617) magnesium sulfate IVPB premix 2,000 mg (0 mg IntraVENous Stopped 10/31/23 1653) ipratropium-albuterol (Duo-Neb) 0.5-2.5 mg/3 mL nebulizer solution 9 mL (3 mL Nebulization Given 10/31/23 1628) albuterol (2.5 MG/3ML) 0.083% nebulizer solution 2.5 mg (10 mg Nebulization Given 10/31/23 1636) EMERGENCY DEPARTMENT COURSE and DIFFERENTIAL DIAGNOSIS/Reval/MDM: Vitals: Vitals: 10/31/23 1636 10/31/23 1642 10/31/23 1652 10/31/23 1700 BP: 139/65 128/61 127/54 124/59 Pulse: (!) 116 (!) 112 107 101 Resp: Temp: TempSrc: SpO2: 96% 95% 96% 97% Diagnoses as of 10/31/23 172 Respiratory failure (HCC) ED Medications managed: Medications albuterol (2.5 MG/3ML) 0.083% nebulizer solution - Pyxis ADS Override Pull (has no administration in time range) methylPREDNISolone sodium succinate (PF) (SOLU-Medrol) injection 125 mg (125 mg IntraVENous Given 10/31/23 1631) EPINEPHrine (Adrenalin) injection 0.3 mg (0.3 mg IntraMUSCular Given 10/31/23 1617) magnesium sulfate IVPB premix 2,000 mg (0 mg IntraVENous Stopped 10/31/23 1653) ipratropium-albuterol (Duo-Neb) 0.5-2.5 mg/3 mL nebulizer solution 9 mL (3 mL Nebulization Given 10/31/23 1628) albuterol (2.5 MG/3ML) 0.083% nebulizer solution 2.5 mg (10 mg Nebulization Given 10/31/23 1636) EKG interpreted by me: 10-31-2023. Time 1622. Rate 159 sinus tachycardia. Indeterminate axis. KHUSHI 125, QRS 82, QTc 427. No STEMI. Discussions with other clinicians: ICU at [facility] and [facility] Medical conditions impacting care: COPD Social determinants of health affecting care: no obvious social determinants impacting this patient's health Escalation of care, appropriate for: ICU MDM: 63-year-old female presenting in respiratory failure. We considered intubation, but her mental status improved. I gave her IM epinephrine for bronchodilation. We established a line, and gave Solu-Medrol and magnesium. She was placed on our BiPAP with DuoNebs and albuterol. Her blood gas demonstrated acidosis with an elevated pCO2. Her white blood cell count was elevated, but her chest x-ray did not demonstrate any infection. Her troponin was within normal limits. I had a lower suspicion for ACS or PE. I felt that COPD fit the clinical picture. I initially spoke to [facility] ICU, who wanted labs back to accept for transfer. This was totally reasonable. However, I was worried about our capability of taking care of this patient in our freestanding emergency department with no resources. We had no RT. Our BiPAP mask was essentially functioning as a CPAP mask. As such, to expedite transfer, I contacted the [facility] ICU to see if that would be more rapid. I spoke with ICU at [facility]. The patient was accepted in transfer. Immediately prior to transfer, the call center asked if we could transfer the patient to [place] instead. There was a bed available in their ICU. This actually worked better for the family. As such, she will be transferred to the [place] ICU. CRITICAL CARE TIME Total Critical Care time was 31 minutes, excluding separately reportable procedures. There was a high probability of clinically significant/life threatening deterioration in the patient's condition which required my urgent intervention. PROCEDURES: Unless otherwise noted below, none Procedures FINAL IMPRESSION 1. Respiratory failure (HCC) DISPOSITION Admit 10/31/2023 04:46:02 PM PATIENT REFERRED TO: No follow-up provider specified. DISCHARGE MEDICATIONS: New Prescriptions No medications on file (Comment: Please note this report has been produced using speech recognition software and may contain errors related to that system including errors in grammar, punctuation, and spelling, as well as words and phrases that may be inappropriate. If there are any questions or concerns please feel free to contact the dictating provider for clarification.) Kwan Harry MD (electronically signed) Emergency Medicine Physician Kwan Harry MD 10/31/23 1823 Kwan Harry MD 10/31/234 Kwan Harry MD 10/31/23 184 Kwan Harry MD 10/31/231848 Patient to room 10 via [facility] for respiratory distress. Patients reports patient was sitting on the edge of the sofa and had a syncopal episode. Patients administered CPR, until the squad arrived. Patient is on 4L of O2 at home. Upon arrival to the ED patient was alert and talking. IV and Bi pap initiated. V/S obtained, classroom monitor applied, pads applied, call light within reach. at bedside. documented in this encounter [facility] 10-19-2023 Telephone encounter Note Prescription Request: Last medication check: 07/28/22 Last physical exam: 07/23/23 Next scheduled appointment: 01/21/24 Last date of refill on this medication 07/23/23 [facility] 10-19-2023 Miscellaneous Notes Prescription Request: Last medication check: 07/28/22 Last physical exam: 07/23/23 Next scheduled appointment: 01/21/24 Last date of refill on this medication 07/23/23 documented in this encounter [facility] 10-15-2023 Evaluation + Plan note Associated Problem(s): COPD (chronic obstructive pulmonary disease) (HCC) Recommend that she make sure she is breathing through her nose so that the oxygen concentrator will give her bursts of oxygen when she is breathing which will not happen when she is breathing through her mouth. Oxygen level is low but she is stable. [facility] 10-15-2023 Evaluation + Plan note Associated Problem(s): Chronic hypoxemic respiratory failure (HCC) Recommend that she make sure she is breathing through her nose so that the oxygen concentrator will give her bursts of oxygen when she is breathing which will not happen when she is breathing through her mouth. Oxygen level is low but she is stable. [facility] 10-15-2023 Miscellaneous Notes Associated Problem(s): COPD (chronic obstructive pulmonary disease) (HCC) Recommend that she make sure she is breathing through her nose so that the oxygen concentrator will give her bursts of oxygen when she is breathing which will not happen when she is breathing through her mouth. Oxygen level is low but she is stable. Associated Problem(s): Chronic hypoxemic respiratory failure (HCC) Recommend that she make sure she is breathing through her nose so that the oxygen concentrator will give her bursts of oxygen when she is breathing which will not happen when she is breathing through her mouth. Oxygen level is low but she is stable. Associated Problem(s): Dependent edema Reassurance that this does not look like it is coming from her heart, will give her Maxzide 37.5-25 to be taken only on mornings when she still has some edema. documented in this encounter [facility] 10-15-2023 Evaluation + Plan note Associated Problem(s): Dependent edema Reassurance that this does not look like it is coming from her heart, will give her Maxzide 37.5-25 to be taken only on mornings when she still has some edema. [facility] 10-15-2023 History of Present illness Narrative Patient verified by last name and date of . Images from the original note were not included. 10/15/2023 Kendra Buitrago (: 1960) is a 63 y.o. female , Established patient, here for evaluation of the following chief complaint(s): Foot Swelling (B/l - started noticing about 2 weeks ago when wake up in the morning swelling is down by evening they are swollen) ASSESSMENT/PLAN: 1. Dependent edema Assessment & Plan: Reassurance that this does not look like it is coming from her heart, will give her Maxzide 37.5-25 to be taken only on mornings when she still has some edema. 2. Chronic hypoxemic respiratory failure (HCC) Assessment & Plan: Recommend that she make sure she is breathing through her nose so that the oxygen concentrator will give her bursts of oxygen when she is breathing which will not happen when she is breathing through her mouth. Oxygen level is low but she is stable. 3. Chronic obstructive pulmonary disease, unspecified COPD type (HCC) Assessment & Plan: Recommend that she make sure she is breathing through her nose so that the oxygen concentrator will give her bursts of oxygen when she is breathing which will not happen when she is breathing through her mouth. Oxygen level is low but she is stable. Follow up if symptoms worsen or fail to improve. SUBJECTIVE/OBJECTIVE: HPI -Ember comes in today concerned about swelling in her feet, she has not much in her legs and she says it does come and go she wakes up in the morning and is usually gone and then will recur during the day. We also checked her pulse ox today since she has severe COPD and it was relatively low although she says she feels absolutely no shortness of breath at this time and she has no complaints. Review of Systems Constitutional: Negative for chills and fever. Respiratory: Negative for shortness of breath. Cardiovascular: Negative for chest pain and palpitations. Vitals: 10/15/23 1117 BP: 137/70 Pulse: 87 SpO2: (!) 87% Weight: 193 lb (87.5 kg) Height: 5' 7 (1.702 m) Physical Exam Vitals and nursing note reviewed. Constitutional: General: She is not in acute distress. Appearance: Normal appearance. HENT: Head: Normocephalic and atraumatic. Mouth/Throat: Mouth: Mucous membranes are moist. Pharynx: Oropharynx is clear. Eyes: Extraocular Movements: Extraocular movements intact. Pupils: Pupils are equal, round, and reactive to light. Cardiovascular: Rate and Rhythm: Normal rate and regular rhythm. Heart sounds: Normal heart sounds. No murmur heard. Pulmonary: Effort: Pulmonary effort is normal. No accessory muscle usage or respiratory distress. Breath sounds: Decreased breath sounds present. Musculoskeletal: Cervical back: Neck supple. Right lower leg: Edema present. Left lower leg: Edema present. Comments: She has 1+ edema of her feet bilateral although the left is slightly more than the right. Lymphadenopathy: Cervical: No cervical adenopathy. Neurological: Mental Status: She is alert. An electronic signature was used to authenticate this note. Vu Mullins MD 10/15/2023 1:38 PM documented in this encounter [facility] 2023 Evaluation + Plan note Associated Problem(s): Swelling of left foot Denies any pain or redness of the foot. Not likely infectious process or thrombosis, most likely secondary to recent exercise regimen, recommend resting and elevating. Follow-up in clinic if symptoms worsen or fail to improve. [facility] 2023 Miscellaneous Notes Associated Problem(s): Swelling of left foot Denies any pain or redness of the foot. Not likely infectious process or thrombosis, most likely secondary to recent exercise regimen, recommend resting and elevating. Follow-up in clinic if symptoms worsen or fail to improve. Associated Problem(s): COPD with acute exacerbation (HCC) No acute distress. Patient with increased sputum above baseline and increased shortness of breath pulse ox decreasing more than normal during exertion. Will treat for acute exacerbation of COPD with azithromycin and prednisone taper. Patient to follow-up for any worsening or failure for symptoms to improve. Follow-up with pulmonology as scheduled Addended by: MARILEE MURRAY on: 10/06/2023 03:18 PM Modules accepted: Level of Service documented in this encounter [facility] 2023 Evaluation + Plan note Associated Problem(s): COPD with acute exacerbation (HCC) No acute distress. Patient with increased sputum above baseline and increased shortness of breath pulse ox decreasing more than normal during exertion. Will treat for acute exacerbation of COPD with azithromycin and prednisone taper. Patient to follow-up for any worsening or failure for symptoms to improve. Follow-up with pulmonology as scheduled [facility] 2023 History of Present illness Narrative Images from the original note were not included. 2023 Kendra Buitrago (: 1960) is a 62 y.o. female , Established patient, here for evaluation of the following chief complaint(s): Sinus Problem, COPD, and Cough Patient was identified and seen today via Telehealth by agreement and consent. I used the following Telehealth technology: Audio and video capabilities. Patient location: Patient Location: Home. This patient encounter is appropriate and reasonable under the circumstances: transportation issues . The patient has been advised of the potential risks and limitations of this mode of treatment (including but not limited to the absence of in-person examination) and has agreed to be treated in a remote fashion in spite of them. Any and all of the patient's/patient's family's questions on this issue have been answered and I have made no promises or guarantees to the patient. The patient has also been advised to contact this office for worsening conditions or problems, and seek emergency medical treatment and/or call 911 if the patient deems either necessary. The patient stated that they are currently in the [facility]. If the patient is a minor, permission has been obtained by the parent or guardian for the patient to receive medical care at this visit. ASSESSMENT/PLAN: 1. COPD with acute exacerbation (HCC) Assessment & Plan: No acute distress. Patient with increased sputum above baseline and increased shortness of breath pulse ox decreasing more than normal during exertion. Will treat for acute exacerbation of COPD with azithromycin and prednisone taper. Patient to follow-up for any worsening or failure for symptoms to improve. Follow-up with pulmonology as scheduled Orders: - azithromycin (Zithromax) 250 MG tablet; Take 2 tabs (500 mg) by mouth today, than 1 daily for 4 days., Normal - predniSONE (Deltasone) 20 MG tablet; Take 3 tabs (60mg) daily for 3 days, then take 2 tabs (40mg) daily for 3 days, then take 1 tab (20mg) daily for 3 days., Normal 2. Swelling of left foot Assessment & Plan: Denies any pain or redness of the foot. Not likely infectious process or thrombosis, most likely secondary to recent exercise regimen, recommend resting and elevating. Follow-up in clinic if symptoms worsen or fail to improve. Follow up if symptoms worsen or fail to improve, for with specialist. SUBJECTIVE/OBJECTIVE: HPI - Kendra Baldo Iftikhar (: 1960) is a 62 y.o. female , Established patient, here for the evaluation of the following chief complaint(s): Sinus Problem, COPD, and Cough Reports that for about 1 week has been having worsening nasal congestion and it has moved into her chest, has been having increased cough with increased sputum. Reports being more short of breath than normal. Wears oxygen nasal cannula at 3 L continuously. Reports her pulse ox with exertion was dropping lower than normal into the mid 80s. She denies any chest pain. No fever or chills. Does report some increased fatigue. She is established with a dredge master but reports difficulty getting into seeing them on an acute basis. She is scheduled to see them October 19, 2023 She is on Trelegy daily, albuterol as needed and DuoNeb per nebulizer. Reports using nebulizer 1-2 times per day which helps for short period of time only. Also reports having a little bit of swelling in her left foot after starting exercising with seated bicycle pedals. Denies any pain or redness of the foot and reports that she stopped using it to see if the swelling will go down. Prior to Admission medications Medication Sig Start Date End Date Taking? Authorizing Provider albuterol (2.5 MG/3ML) 0.083% nebulizer solution Take 3 mL (2.5 mg) by nebulization 4 times daily as needed for wheezing or shortness of breath. 02/02/23 Vu Mullins MD albuterol 108 (90 Base) MCG/ACT inhaler inhale 2 puff by mouth and INTO THE LUNGS every 4 hours if needed 09/16/23 Vu Mullins MD baclofen (Lioresal) 5 MG tablet Take 1 tablet (5 mg) by mouth 2 times daily as needed for muscle spasms. 02/02/23 Vu Mullins MD Blood Glucose Monitoring Suppl device Check glucose fasting in am and 2 hours after evening meal. 07/28/22 Marilee Murray APRN - [facility] Calcium Carb-Cholecalciferol 600-400 MG-UNIT tablet MOWEFR 09/19/21 Historical Provider, cetirizine-pseudoephedrine (ZyrTEC-D Allergy & Sinus) 5-120 MG 12 hr tablet Take 1 tablet by mouth 2 times daily. 02/02/23 Vu Mullins MD fluticasone (Flonase) 50 MCG/ACT nasal spray instill 2 sprays into each nostril at bedtime 02/10/23 Vu Mullins MD Glucose Blood (Blood Glucose Test) strip Use as directed 3x day. 07/28/22 ESAU Hunt CNP ipratropium-albuterol (Duo-Neb) 0.5-2.5 mg/3 mL nebulizer solution INHALE 1 VIAL BY NEBULIZATION four times a day if needed for wheezing 04/26/23 ESAU Hunt CNP lisinopril-hydroCHLOROthiazide 20-25 MG tablet take 1 tablet by mouth every morning 10/04/23 ESAU Hunt CNP Mucus Relief ER 600 MG 12 hr tablet take 1 tablet by mouth twice a day for 15 DAYS 02/19/22 Historical Provider, naproxen sodium (Aleve) 220 MG tablet TWICE A DAY 09/19/21 Historical Provider, omega-3 (fish oil) 1200 MG capsule 1,200 capsules. 09/19/21 Historical Provider, oxygen (O2) gas Inhale 2 L/min continuous. via nasal canula 2 liters daytime and 4 liters at night Historical Provider, Roflumilast (Daliresp) 500 MCG tablet Take 500 mcg by mouth daily. 06/26/23 Historical Provider, sertraline (Zoloft) 100 MG tablet Take 1 tablet (100 mg) by mouth daily. 07/23/23 Vu Mullins MD Trelegy Ellipta 100-62.5-25 MCG/INH aerosol powder INHALE 1 PUFF INTO THE LUNGS ONCE DAILY WITH GOOD ORAL CARE 04/07/22 Historical Provider, lisinopril-hydroCHLOROthiazide 20-25 MG tablet take 1 tablet by mouth every morning 04/05/23 10/04/23 ESAU Salgado CNP Review of Systems Constitutional: Positive for appetite change and fatigue. Negative for activity change, chills and fever. HENT: Positive for congestion and sinus pressure. Negative for sore throat. Respiratory: Positive for cough, chest tightness, shortness of breath and wheezing. Cardiovascular: Positive for leg swelling (left foot a little swollen.). Negative for chest pain and palpitations. Genitourinary: Negative for difficulty urinating. Neurological: Positive for headaches (sinus pressure). Negative for dizziness and light-headedness. There were no vitals filed for this visit. Physical Exam Constitutional: General: She is not in acute distress. Appearance: Normal appearance. She is ill-appearing (Mild). Pulmonary: Comments: Speaking full sentences without difficulty. Wearing oxygen nasal cannula Neurological: Mental Status: She is alert and oriented to person, place, and time. An electronic signature was used to authenticate this note. ESAU Hunt CNP 2023 8:04 AM documented in this encounter [facility] 2023 Note Addended by: MARILEE GARZA on: 10/06/2023 03:18 PM Modules accepted: Level of Service [facility] 10-04-2023 Telephone encounter Note Reviewed chart. Refill appropriate. RX sent. [facility] 10-04-2023 Miscellaneous Notes Reviewed chart. Refill appropriate. RX sent. Prescription Request: Last medication check: 07/28/22 Last physical exam: 07/23/23 Next scheduled appointment: 10/05/23 Last date of refill on this medication 04/05/23 documented in this encounter [facility] 10-04-2023 Telephone encounter Note Prescription Request: Last medication check: 07/28/22 Last physical exam: 07/23/23 Next scheduled appointment: 10/05/23 Last date of refill on this medication 04/05/23 [facility] 09-16-2023 Telephone encounter Note Prescription Request: Last medication check: 02/02/2023 Last physical exam: 07/23/2023 Last completed appointment: 08/16/2023 Next scheduled appointment: 01/21/2024 Last date of refill on this medication: Medication refilled on 08/02/2023 with 2 refills [facility] 09-16-2023 Miscellaneous Notes Prescription Request: Last medication check: 02/02/2023 Last physical exam: 07/23/2023 Last completed appointment: 08/16/2023 Next scheduled appointment: 01/21/2024 Last date of refill on this medication: Medication refilled on 08/02/2023 with 2 refills documented in this encounter [facility] 08-16-2023 Evaluation + Plan note Associated Problem(s): COPD with acute exacerbation (HCC) No acute distress, however patient is desaturating to the low 80s with exertion and talking. Long discussion with patient regarding recommendation to be evaluated in the emergency room due to oxygen saturation being low and increased risk for acute on chronic respiratory failure and heart failure. Patient declines transportation via squad and reports that she needs to be at home at this time. Once again recommendation that patient be evaluated in the emergency room. Patient continues to decline emergency room evaluation. Will provide prednisone and azithromycin prescriptions, continue guaifenesin home nebulizer and trelogy. Recommend follow-up with pulmonology. [facility] 08-16-2023 Miscellaneous Notes Associated Problem(s): COPD with acute exacerbation (HCC) No acute distress, however patient is desaturating to the low 80s with exertion and talking. Long discussion with patient regarding recommendation to be evaluated in the emergency room due to oxygen saturation being low and increased risk for acute on chronic respiratory failure and heart failure. Patient declines transportation via squad and reports that she needs to be at home at this time. Once again recommendation that patient be evaluated in the emergency room. Patient continues to decline emergency room evaluation. Will provide prednisone and azithromycin prescriptions, continue guaifenesin home nebulizer and trelogy. Recommend follow-up with pulmonology. documented in this encounter [facility] 08-16-2023 Miscellaneous Notes Associated Problem(s): COPD with acute exacerbation (HCC) No acute distress, however patient is desaturating to the low 80s with exertion and talking. Long discussion with patient regarding recommendation to be evaluated in the emergency room due to oxygen saturation being low and increased risk for acute on chronic respiratory failure and heart failure. Patient declines transportation via squad and reports that she needs to be at home at this time. Once again recommendation that patient be evaluated in the emergency room. Patient continues to decline emergency room evaluation. Will provide prednisone and azithromycin prescriptions, continue guaifenesin home nebulizer and trelogy. Recommend follow-up with pulmonology. Addended by: MARILEE MURRAY on: 08/17/2023 10:15 AM Modules accepted: Level of Service documented in this encounter [facility] 08-16-2023 Telephone encounter Note Called and talked with patient. She did not go to the emergency room as previously advised. 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 Denies any chest pain. She is speaking full sentences without difficulty. Patient advised if she has any worsening symptoms that she really needs to be seen in the emergency room and to closely monitor her pulse ox as it should stay greater than 88%-ideally mid 90s on the 3 L. Patient appreciative of phone call and states understanding of recommendation. [facility] 08-16-2023 Miscellaneous Notes Called and talked with patient. She did not go to the emergency room as previously advised. 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 Denies any chest pain. She is speaking full sentences without difficulty. Patient advised if she has any worsening symptoms that she really needs to be seen in the emergency room and to closely monitor her pulse ox as it should stay greater than 88%-ideally mid 90s on the 3 L. Patient appreciative of phone call and states understanding of recommendation. documented in this encounter [facility] 08-16-2023 History of Present illness Narrative Patient was verified by name and . Images from the original note were not included. 08/16/2023 Kendra Buitrago (: 1960) is a 62 y.o. female , Established patient, here for evaluation of the following chief complaint(s): Chest Congestion and Sinus Problem (States sx are ongoing and make breathing difficult, c/o sinus pain and pressure, denies fever) ASSESSMENT/PLAN: 1. COPD with acute exacerbation (HCC) Assessment & Plan: No acute distress, however patient is desaturating to the low 80s with exertion and talking. Long discussion with patient regarding recommendation to be evaluated in the emergency room due to oxygen saturation being low and increased risk for acute on chronic respiratory failure and heart failure. Patient declines transportation via squad and reports that she needs to be at home at this time. Once again recommendation that patient be evaluated in the emergency room. Patient continues to decline emergency room evaluation. Will provide prednisone and azithromycin prescriptions, continue guaifenesin home nebulizer and trelogy. Recommend follow-up with pulmonology. Orders: - predniSONE (Deltasone) 20 MG tablet; Take 3 tabs (60mg) daily for 3 days, then take 2 tabs (40mg) daily for 3 days, then take 1 tab (20mg) daily for 3 days., Normal - azithromycin (Zithromax) 250 MG tablet; Take 2 tabs (500 mg) by mouth today, than 1 daily for 4 days., Normal Follow up for with specialist. SUBJECTIVE/OBJECTIVE: [facility] - Kendra Buitrago (: 1960) is a 62 y.o. female , Established patient, here for the evaluation of the following chief complaint(s): Chest Congestion and Sinus Problem (States sx are ongoing and make breathing difficult, c/o sinus pain and pressure, denies fever) No fever or chills, sinus congestion, mucous is thick, no chest pain, more short of breath than normal. Did duoneb yesterday. And one time today around 11 am. Reports sometimes makes her chest feel tighter so she tends not to do it more than a couple times a day. States she was starting to feel worse last week but there was no Open appointments at that time. She does have a dredge master in [place] which she has an appointment to see in September. Continues Daliresp 500 mcg daily Trelegy daily and her albuterol rescue inhaler. She is currently on 2 L nasal cannula continuously. States she got pretty winded after walking back to the exam room. Was hospitalized last summer for COPD exacerbation. Prior to Admission medications Medication Sig Start Date End Date Taking? Authorizing Provider albuterol (2.5 MG/3ML) 0.083% nebulizer solution Take 3 mL (2.5 mg) by nebulization 4 times daily as needed for wheezing or shortness of breath. 02/02/23 Yes Vu Mullins MD albuterol 108 (90 Base) MCG/ACT inhaler inhale 2 puffs by mouth every 4 hours if needed 08/02/23 Yes Vu Mullins MD baclofen (Lioresal) 5 MG tablet Take 1 tablet (5 mg) by mouth 2 times daily as needed for muscle spasms. 02/02/23 Yes Vu Mullins MD Blood Glucose Monitoring Suppl device Check glucose fasting in am and 2 hours after evening meal. 07/28/22 Yes Marilee Murray APRN - [facility] Calcium Carb-Cholecalciferol 600-400 MG-UNIT tablet MOWEFR 09/19/21 Yes Historical Provider, cetirizine-pseudoephedrine (ZyrTEC-D Allergy & Sinus) 5-120 MG 12 hr tablet Take 1 tablet by mouth 2 times daily. 02/02/23 Yes Vu Mullins MD fluticasone (Flonase) 50 MCG/ACT nasal spray instill 2 sprays into each nostril at bedtime 02/10/23 Yes Vu Mullins MD Glucose Blood (Blood Glucose Test) strip Use as directed 3x day. 07/28/22 Yes Marilee ESAU Murray CNP ipratropium-albuterol (Duo-Neb) 0.5-2.5 mg/3 mL nebulizer solution INHALE 1 VIAL BY NEBULIZATION four times a day if needed for wheezing 04/26/23 Yes MarileeESAU Starks CNP lisinopril-hydroCHLOROthiazide 20-25 MG tablet take 1 tablet by mouth every morning 04/05/23 Yes ESAU Salgado CNP Mucus Relief ER 600 MG 12 hr tablet take 1 tablet by mouth twice a day for 15 DAYS 02/19/22 Yes Historical Provider, naproxen sodium (Aleve) 220 MG tablet TWICE A DAY 09/19/21 Yes Historical Provider, omega-3 (fish oil) 1200 MG capsule 1,200 capsules. 09/19/21 Yes Historical Provider, oxygen (O2) gas Inhale 2 L/min continuous. via nasal canula 2 liters daytime and 4 liters at night Yes Historical Provider, predniSONE (Deltasone) 10 MG tablet Take 10 mg by mouth. 01/22/23 Yes Historical Provider, Roflumilast (Daliresp) 500 MCG tablet Take 500 mcg by mouth daily. 06/26/23 Yes Historical Provider, sertraline (Zoloft) 100 MG tablet Take 1 tablet (100 mg) by mouth daily. 07/23/23 Yes Vu Mullins MD Trelegy Ellipta 100-62.5-25 MCG/INH aerosol powder INHALE 1 PUFF INTO THE LUNGS ONCE DAILY WITH GOOD ORAL CARE 04/07/22 Yes Historical Provider, simethicone (Mylicon) 80 MG chewable tablet AT BEDTIME 09/19/21 Historical Provider, Review of Systems Constitutional: Positive for activity change and fatigue. Negative for appetite change, chills, diaphoresis and fever. HENT: Positive for congestion and sinus pressure. Respiratory: Positive for cough, chest tightness, shortness of breath and wheezing. Cardiovascular: Negative for chest pain. Gastrointestinal: Negative. Genitourinary: Negative. Neurological: Negative for dizziness. Vitals: 08/16/23 1328 08/16/23 1410 BP: (!) 158/74 109/71 Pulse: 108 Temp: 37.2 C (98.9 F) TempSrc: Oral Weight: 184 lb (83.5 kg) Height: 5' 7 (1.702 m) Physical Exam Constitutional: General: She is not in acute distress. Appearance: Normal appearance. She is obese. She is not ill-appearing. HENT: Head: Normocephalic and atraumatic. Nose: Congestion present. Mouth/Throat: Mouth: Mucous membranes are moist. Pharynx: Oropharynx is clear. Eyes: Conjunctiva/sclera: Conjunctivae normal. Cardiovascular: Rate and Rhythm: Normal rate and regular rhythm. Pulmonary: Effort: No respiratory distress. Breath sounds: Rhonchi present. No wheezing or rales. Comments: Is able to speak full sentences without apparent difficulty however desaturates into the low 80s while talking. Lymphadenopathy: Cervical: No cervical adenopathy. Skin: General: Skin is warm and dry. Neurological: Mental Status: She is alert and oriented to person, place, and time. An electronic signature was used to authenticate this note. ESAU Hunt CNP 08/16/2023 5:44 PM documented in this encounter [facility] 08-16-2023 History of Present illness Narrative Patient was verified by name and . Images from the original note were not included. 08/16/2023 Kendra Buitrago (: 1960) is a 62 y.o. female , Established patient, here for evaluation of the following chief complaint(s): Chest Congestion and Sinus Problem (States sx are ongoing and make breathing difficult, c/o sinus pain and pressure, denies fever) ASSESSMENT/PLAN: 1. COPD with acute exacerbation (HCC) Assessment & Plan: No acute distress, however patient is desaturating to the low 80s with exertion and talking. Long discussion with patient regarding recommendation to be evaluated in the emergency room due to oxygen saturation being low and increased risk for acute on chronic respiratory failure and heart failure. Patient declines transportation via squad and reports that she needs to be at home at this time. Once again recommendation that patient be evaluated in the emergency room. Patient continues to decline emergency room evaluation. Will provide prednisone and azithromycin prescriptions, continue guaifenesin home nebulizer and trelogy. Recommend follow-up with pulmonology. Orders: - predniSONE (Deltasone) 20 MG tablet; Take 3 tabs (60mg) daily for 3 days, then take 2 tabs (40mg) daily for 3 days, then take 1 tab (20mg) daily for 3 days., Normal - azithromycin (Zithromax) 250 MG tablet; Take 2 tabs (500 mg) by mouth today, than 1 daily for 4 days., Normal Follow up for with specialist. SUBJECTIVE/OBJECTIVE: HPI - Kendra Buitrago (: 1960) is a 62 y.o. female , Established patient, here for the evaluation of the following chief complaint(s): Chest Congestion and Sinus Problem (States sx are ongoing and make breathing difficult, c/o sinus pain and pressure, denies fever) No fever or chills, sinus congestion, mucous is thick, no chest pain, more short of breath than normal. Did duoneb yesterday. And one time today around 11 am. Reports sometimes makes her chest feel tighter so she tends not to do it more than a couple times a day. States she was starting to feel worse last week but there was no Open appointments at that time. She does have a dredge master in [place] which she has an appointment to see in September. Continues Daliresp 500 mcg daily Trelegy daily and her albuterol rescue inhaler. She is currently on 2 L nasal cannula continuously. States she got pretty winded after walking back to the exam room. Was hospitalized last summer for COPD exacerbation. Prior to Admission medications Medication Sig Start Date End Date Taking? Authorizing Provider albuterol (2.5 MG/3ML) 0.083% nebulizer solution Take 3 mL (2.5 mg) by nebulization 4 times daily as needed for wheezing or shortness of breath. 02/02/23 Yes Vu Mullins MD albuterol 108 (90 Base) MCG/ACT inhaler inhale 2 puffs by mouth every 4 hours if needed 08/02/23 Yes Vu Mullins MD baclofen (Lioresal) 5 MG tablet Take 1 tablet (5 mg) by mouth 2 times daily as needed for muscle spasms. 02/02/23 Yes Vu Mullins MD Blood Glucose Monitoring Suppl device Check glucose fasting in am and 2 hours after evening meal. 07/28/22 Yes ESAU Hunt CNP Calcium Carb-Cholecalciferol 600-400 MG-UNIT tablet MOWEFR 09/19/21 Yes Historical Provider, cetirizine-pseudoephedrine (ZyrTEC-D Allergy & Sinus) 5-120 MG 12 hr tablet Take 1 tablet by mouth 2 times daily. 02/02/23 Yes Vu Mullins MD fluticasone (Flonase) 50 MCG/ACT nasal spray instill 2 sprays into each nostril at bedtime 02/10/23 Yes Vu Mullins MD Glucose Blood (Blood Glucose Test) strip Use as directed 3x day. 07/28/22 Yes ESAU Hunt CNP ipratropium-albuterol (Duo-Neb) 0.5-2.5 mg/3 mL nebulizer solution INHALE 1 VIAL BY NEBULIZATION four times a day if needed for wheezing 04/26/23 Yes ESAU Hunt CNP lisinopril-hydroCHLOROthiazide 20-25 MG tablet take 1 tablet by mouth every morning 04/05/23 Yes ESAU Salgado CNP Mucus Relief ER 600 MG 12 hr tablet take 1 tablet by mouth twice a day for 15 DAYS 02/19/22 Yes Historical Provider, naproxen sodium (Aleve) 220 MG tablet TWICE A DAY 09/19/21 Yes Historical Provider, omega-3 (fish oil) 1200 MG capsule 1,200 capsules. 09/19/21 Yes Historical Provider, oxygen (O2) gas Inhale 2 L/min continuous. via nasal canula 2 liters daytime and 4 liters at night Yes Historical Provider, predniSONE (Deltasone) 10 MG tablet Take 10 mg by mouth. 01/22/23 Yes Historical Provider, Roflumilast (Daliresp) 500 MCG tablet Take 500 mcg by mouth daily. 06/26/23 Yes Historical Provider, sertraline (Zoloft) 100 MG tablet Take 1 tablet (100 mg) by mouth daily. 07/23/23 Yes Vu Mullins MD Trelegy Ellipta 100-62.5-25 MCG/INH aerosol powder INHALE 1 PUFF INTO THE LUNGS ONCE DAILY WITH GOOD ORAL CARE 04/07/22 Yes Historical Provider, simethicone (Mylicon) 80 MG chewable tablet AT BEDTIME 09/19/21 Historical Provider, Review of Systems Constitutional: Positive for activity change and fatigue. Negative for appetite change, chills, diaphoresis and fever. HENT: Positive for congestion and sinus pressure. Respiratory: Positive for cough, chest tightness, shortness of breath and wheezing. Cardiovascular: Negative for chest pain. Gastrointestinal: Negative. Genitourinary: Negative. Neurological: Negative for dizziness. Vitals: 08/16/23 1328 08/16/23 1410 BP: (!) 158/74 109/71 Pulse: 108 Temp: 37.2 C (98.9 F) TempSrc: Oral Weight: 184 lb (83.5 kg) Height: 5' 7 (1.702 m) Physical Exam Constitutional: General: She is not in acute distress. Appearance: Normal appearance. She is obese. She is not ill-appearing. HENT: Head: Normocephalic and atraumatic. Nose: Congestion present. Mouth/Throat: Mouth: Mucous membranes are moist. Pharynx: Oropharynx is clear. Eyes: Conjunctiva/sclera: Conjunctivae normal. Cardiovascular: Rate and Rhythm: Normal rate and regular rhythm. Pulmonary: Effort: No respiratory distress. Breath sounds: Rhonchi present. No wheezing or rales. Comments: Is able to speak full sentences without apparent difficulty however desaturates into the low 80s while talking. Lymphadenopathy: Cervical: No cervical adenopathy. Skin: General: Skin is warm and dry. Neurological: Mental Status: She is alert and oriented to person, place, and time. An electronic signature was used to authenticate this note. ESAU Hunt CNP 08/16/2023 5:44 PM documented in this encounter [facility] 08-16-2023 Instructions ESAU Hunt CNP - 08/16/2023 1:20 PM EDT Recommend going to ER for further evaluation. Please have someone take you as soon as possible. documented in this encounter [facility] 08-16-2023 Instructions ESAU Hunt CNP - 08/16/2023 1:20 PM EDT Recommend going to ER for further evaluation. Please have someone take you as soon as possible. documented in this encounter [facility] 08-16-2023 Note Addended by: MARILEE GARZA on: 08/17/2023 10:15 AM Modules accepted: Level of Service [facility] 07-26-2023 Telephone encounter Note S: Patient spoke with CAC nurse regarding results. B: Onset of symptoms/concern 07/26/2023. A: Patient requesting labs that were recently drawn. R: Labs given to patient per request and message from Dr. Mullins released to patient. Discussed patient going on a very strict low carb, low fat and low cholesterol diet per PCP. Patient understands care advice. No further needs at this time. Patient instructed to call back with new or worsening symptoms. Reason for Disposition Health Information question, no triage required and triager able to answer question Protocols used: Information Only Call - No [id number] [facility] 07-26-2023 Miscellaneous Notes S: Patient spoke with CAC nurse regarding results. B: Onset of symptoms/concern 07/26/2023. A: Patient requesting labs that were recently drawn. R: Labs given to patient per request and message from Dr. Mullins released to patient. Discussed patient going on a very strict low carb, low fat and low cholesterol diet per PCP. Patient understands care advice. No further needs at this time. Patient instructed to call back with new or worsening symptoms. Reason for Disposition Health Information question, no triage required and triager able to answer question Protocols used: Information Only Call - No [id number] documented in this encounter [facility] 07-23-2023 Evaluation + Plan note Associated Problem(s): Anxiety Partial remission, increase Zoloft to 100 mg daily [facility] 07-23-2023 Miscellaneous Notes Associated Problem(s): Anxiety Partial remission, increase Zoloft to 100 mg daily Associated Problem(s): Episode of recurrent major depressive disorder (HCC) Partial remission, increase Zoloft to 100 mg daily Associated Problem(s): Hypertriglyceridemia Controlled, continue low-fat low-cholesterol diet. Associated Problem(s): Type 2 diabetes mellitus without complication, without long-term current use of insulin ([facility]/HCC) (HCC) Controlled, last A1c was 6.6 we will recheck that today. Associated Problem(s): Hypertension Controlled, continue lisinopril hydrochlorothiazide 20- 25 mg. Associated Problem(s): Chronic hypoxemic respiratory failure (HCC) Stable, continue oxygen Associated Problem(s): COPD (chronic obstructive pulmonary disease) ([facility]) Stable, continue albuterol, DuoNeb solution, Daliresp and Trelegy. documented in this encounter [facility] 07-23-2023 Evaluation + Plan note Associated Problem(s): Episode of recurrent major depressive disorder (HCC) Partial remission, increase Zoloft to 100 mg daily [facility] 07-23-2023 Evaluation + Plan note Associated Problem(s): Hypertriglyceridemia Controlled, continue low-fat low-cholesterol diet. [facility] 07-23-2023 Evaluation + Plan note Associated Problem(s): Type 2 diabetes mellitus without complication, without long-term current use of insulin ([facility]) ([facility]) Controlled, last A1c was 6.6 we will recheck that today. [facility] 07-23-2023 Evaluation + Plan note Associated Problem(s): Hypertension Controlled, continue lisinopril hydrochlorothiazide 20- 25 mg. [employer] [employer] 07-23-2023 Evaluation + Plan note Associated Problem(s): Chronic hypoxemic respiratory failure (HCC) Stable, continue oxygen [employer] [employer] 07-23-2023 Evaluation + Plan note Associated Problem(s): COPD (chronic obstructive pulmonary disease) (HCC) Stable, continue albuterol, DuoNeb solution, Daliresp and Trelegy. [facility] products 07-23-2023 History of Present illness Narrative Patient verified by last name and date of . Images from the original note were not included. 07/23/2023 Kendra Buitrago (: 1960) is a 62 y.o. female , Established patient, here for evaluation of the following chief complaint(s): Gynecologic Exam ([facility] no pap had hyst ), Blood Work, Health Maintenance (Eye exam- [facility]/Dental exam- not done pt will sched/Rsv vaccine- not done/Pcv 20 vaccine- refuse/Flu vaccine- refuse/3rd covid vaccine- not done), and Medication Problem (Pt is wondering about taking 2 xanax instead of one sometimes - I am not seeing this med on her list ) ASSESSMENT/PLAN: 1. Well female exam without gynecological exam 2. Chronic obstructive pulmonary disease, unspecified COPD type (HCC) Assessment & Plan: Stable, continue albuterol, DuoNeb solution, Daliresp and Trelegy. 3. Chronic hypoxemic respiratory failure (HCC) Assessment & Plan: Stable, continue oxygen 4. Primary hypertension Assessment & Plan: Controlled, continue lisinopril hydrochlorothiazide 20- 25 mg. 5. Type 2 diabetes mellitus without complication, without long-term current use of insulin ([facility] ([facility]) Assessment & Plan: Controlled, last A1c was 6.6 we will recheck that today. Orders: - Comprehensive metabolic panel - Microalbumin / creatinine urine ratio - Hemoglobin A1c - Diabetes Foot Exam 6. Hypertriglyceridemia Assessment & Plan: Controlled, continue low-fat low-cholesterol diet. Orders: - Lipid panel 7. Mild episode of recurrent major depressive disorder (HCC) Assessment & Plan: Partial remission, increase Zoloft to 100 mg daily 8. Anxiety Assessment & Plan: Partial remission, increase Zoloft to 100 mg daily 9. Encounter for screening mammogram for malignant neoplasm of breast - Bilateral screening mammogram with tomosynthesis Follow up in about 6 months (around 01/21/2024). SUBJECTIVE/OBJECTIVE: ABILIO Fraser comes in today for her annual well female exam, she does not need a Pap test she has had a hysterectomy. She is also here for follow-up on her COPD and her chronic hypoxemia current pulse ox was 89% on 2 L, hypertension, diabetes, hypertriglyceridemia and her anxiety and depression and she says that at times she feels like she needs a little more for her anxiety so we will increase her Zoloft. She has no other complaints at this time, see ROS. Review of Systems Constitutional: Negative for chills and fever. Respiratory: Positive for shortness of breath. Cardiovascular: Negative for chest pain and palpitations. Gastrointestinal: Negative for abdominal pain, blood in stool, constipation and diarrhea. Genitourinary: Negative for dyspareunia, dysuria, frequency, hematuria and urgency. Neurological: Negative for weakness and numbness. Psychiatric/Behavioral: Negative for dysphoric mood. The patient is not nervous/anxious. Vitals: 07/23/23 0803 BP: 111/68 Pulse: 86 SpO2: (!) 89% Weight: 194 lb 9.6 oz (88.3 kg) Height: 5' 7 (1.702 m) Physical Exam Vitals and nursing note reviewed. Constitutional: General: She is not in acute distress. Appearance: Normal appearance. HENT: Head: Normocephalic. Right Ear: Tympanic membrane, ear canal and external ear normal. Left Ear: Tympanic membrane, ear canal and external ear normal. Mouth/Throat: Mouth: Mucous membranes are moist. Pharynx: Oropharynx is clear. Eyes: Extraocular Movements: Extraocular movements intact. Pupils: Pupils are equal, round, and reactive to light. Neck: Vascular: No carotid bruit. Cardiovascular: Rate and Rhythm: Normal rate and regular rhythm. Heart sounds: Normal heart sounds. No murmur heard. Pulmonary: Effort: Pulmonary effort is normal. Breath sounds: Normal breath sounds. Chest: Breasts: Right: Normal. No inverted nipple, mass, nipple discharge or skin change. Left: Normal. No inverted nipple, mass, nipple discharge, skin change or tenderness. Abdominal: General: Bowel sounds are normal. Palpations: Abdomen is soft. Musculoskeletal: General: Normal range of motion. Cervical back: Normal range of motion. Lymphadenopathy: Cervical: No cervical adenopathy. Upper Body: Right upper body: No axillary adenopathy. Left upper body: No axillary adenopathy. Skin: General: Skin is warm and dry. Neurological: General: No focal deficit present. Mental Status: She is alert and oriented to person, place, and time. Comments: Diabetic foot check: Normal strength and range of motion of toes, feet, and ankles bilaterally. No joint deformity. No cyanosis or clubbing. 100% sensation with 10 gram filament. Dorsalis pedis pulses intact bilaterally. Capillary refill at the toes was less than 2 seconds. Light touch sensation intact bilaterally. Hair growth present on feet and toes bilaterally. No skin breakdown, erythema, rub spots, blisters, scaling, or ulcers. No calluses or corns. Toenails thin and not ingrown. No evidence of fungal infection. Psychiatric: Mood and Affect: Mood normal. An electronic signature was used to authenticate this note. Vu Mullins MD 07/23/2023 9:10 AM documented in this encounter [facility] 07-23-2023 History of Present illness Narrative Patient verified by last name and date of . Images from the original note were not included. 07/23/2023 Kendra Buitrago (: 1960) is a 62 y.o. female , Established patient, here for evaluation of the following chief complaint(s): Gynecologic Exam ([facility] no pap had hyst ), Blood Work, Health Maintenance (Eye exam- [facility]/Dental exam- not done pt will sched/Rsv vaccine- not done/Pcv 20 vaccine- refuse/Flu vaccine- refuse/3rd covid vaccine- not done), and Medication Problem (Pt is wondering about taking 2 xanax instead of one sometimes - I am not seeing this med on her list ) ASSESSMENT/PLAN: 1. Well female exam without gynecological exam 2. Chronic obstructive pulmonary disease, unspecified COPD type ([facility]) Assessment & Plan: Stable, continue albuterol, DuoNeb solution, Daliresp and Trelegy. 3. Chronic hypoxemic respiratory failure (HCC) Assessment & Plan: Stable, continue oxygen 4. Primary hypertension Assessment & Plan: Controlled, continue lisinopril hydrochlorothiazide 20- 25 mg. 5. Type 2 diabetes mellitus without complication, without long-term current use of insulin ([facility] ([facility]) Assessment & Plan: Controlled, last A1c was 6.6 we will recheck that today. Orders: - Comprehensive metabolic panel - Microalbumin / creatinine urine ratio - Hemoglobin A1c - Diabetes Foot Exam 6. Hypertriglyceridemia Assessment & Plan: Controlled, continue low-fat low-cholesterol diet. Orders: - Lipid panel 7. Mild episode of recurrent major depressive disorder (HCC) Assessment & Plan: Partial remission, increase Zoloft to 100 mg daily 8. Anxiety Assessment & Plan: Partial remission, increase Zoloft to 100 mg daily 9. Encounter for screening mammogram for malignant neoplasm of breast - Bilateral screening mammogram with tomosynthesis Follow up in about 6 months (around 01/21/2024). SUBJECTIVE/OBJECTIVE: ABILIO Fraser comes in today for her annual well female exam, she does not need a Pap test she has had a hysterectomy. She is also here for follow-up on her COPD and her chronic hypoxemia current pulse ox was 89% on 2 L, hypertension, diabetes, hypertriglyceridemia and her anxiety and depression and she says that at times she feels like she needs a little more for her anxiety so we will increase her Zoloft. She has no other complaints at this time, see ROS. Review of Systems Constitutional: Negative for chills and fever. Respiratory: Positive for shortness of breath. Cardiovascular: Negative for chest pain and palpitations. Gastrointestinal: Negative for abdominal pain, blood in stool, constipation and diarrhea. Genitourinary: Negative for dyspareunia, dysuria, frequency, hematuria and urgency. Neurological: Negative for weakness and numbness. Psychiatric/Behavioral: Negative for dysphoric mood. The patient is not nervous/anxious. Vitals: 07/23/23 0803 BP: 111/68 Pulse: 86 SpO2: (!) 89% Weight: 194 lb 9.6 oz (88.3 kg) Height: 5' 7 (1.702 m) Physical Exam Vitals and nursing note reviewed. Constitutional: General: She is not in acute distress. Appearance: Normal appearance. HENT: Head: Normocephalic. Right Ear: Tympanic membrane, ear canal and external ear normal. Left Ear: Tympanic membrane, ear canal and external ear normal. Mouth/Throat: Mouth: Mucous membranes are moist. Pharynx: Oropharynx is clear. Eyes: Extraocular Movements: Extraocular movements intact. Pupils: Pupils are equal, round, and reactive to light. Neck: Vascular: No carotid bruit. Cardiovascular: Rate and Rhythm: Normal rate and regular rhythm. Heart sounds: Normal heart sounds. No murmur heard. Pulmonary: Effort: Pulmonary effort is normal. Breath sounds: Normal breath sounds. Chest: Breasts: Right: Normal. No inverted nipple, mass, nipple discharge or skin change. Left: Normal. No inverted nipple, mass, nipple discharge, skin change or tenderness. Abdominal: General: Bowel sounds are normal. Palpations: Abdomen is soft. Musculoskeletal: General: Normal range of motion. Cervical back: Normal range of motion. Lymphadenopathy: Cervical: No cervical adenopathy. Upper Body: Right upper body: No axillary adenopathy. Left upper body: No axillary adenopathy. Skin: General: Skin is warm and dry. Neurological: General: No focal deficit present. Mental Status: She is alert and oriented to person, place, and time. Comments: Diabetic foot check: Normal strength and range of motion of toes, feet, and ankles bilaterally. No joint deformity. No cyanosis or clubbing. 100% sensation with 10 gram filament. Dorsalis pedis pulses intact bilaterally. Capillary refill at the toes was less than 2 seconds. Light touch sensation intact bilaterally. Hair growth present on feet and toes bilaterally. No skin breakdown, erythema, rub spots, blisters, scaling, or ulcers. No calluses or corns. Toenails thin and not ingrown. No evidence of fungal infection. Psychiatric: Mood and Affect: Mood normal. An electronic signature was used to authenticate this note. Vu Mullins MD 07/26/2023 7:59 AM documented in this encounter [facility] 07-19-2023 Telephone encounter Note Prescription Request: Last medication check: 02-02-23 Last physical exam: Next scheduled appointment: 07-23-23 Last date of refill on this medication 04-26-23 [facility] 07-19-2023 Miscellaneous Notes Prescription Request: Last medication check: 02-02-23 Last physical exam: Next scheduled appointment: 07-23-23 Last date of refill on this medication 04-26-23 documented in this encounter [facility] 04-26-2023 Telephone encounter Note Reviewed chart. Refill appropriate. RX sent. [facility] 04-26-2023 Miscellaneous Notes Reviewed chart. Refill appropriate. RX sent. Prescription Request: Last medication check: 02/02/23 Last physical exam: 07/16/22 Next scheduled appointment: 07/23/23 Last date of refill on this medication 01/29/23 documented in this encounter [facility] 04-26-2023 Telephone encounter Note Reviewed chart. Refill appropriate. RX sent. [facility] 04-26-2023 Miscellaneous Notes Reviewed chart. Refill appropriate. RX sent. Prescription Request: Last medication check: 02/02/23 Last physical exam: 07/16/22 Next scheduled appointment: 07/23/23 Last date of refill on this medication 03/01/23 documented in this encounter [facility] 04-26-2023 Telephone encounter Note Prescription Request: Last medication check: 02/02/23 Last physical exam: 07/16/22 Next scheduled appointment: 07/23/23 Last date of refill on this medication 03/01/23 [facility] 04-26-2023 Telephone encounter Note Prescription Request: Last medication check: 02/02/23 Last physical exam: 07/16/22 Next scheduled appointment: 07/23/23 Last date of refill on this medication 01/29/23 [facility] 04-26-2023 Telephone encounter Note Reviewed chart. Refill appropriate. RX sent. [facility] 04-26-2023 Miscellaneous Notes Reviewed chart. Refill appropriate. RX sent. Prescription Request: Last medication check: 02/02/23 Last physical exam: 07/16/22 Next scheduled appointment: 07/23/23 Last date of refill on this medication 03/01/23 1 inhaler 2 refills documented in this encounter [facility] 04-26-2023 Telephone encounter Note Prescription Request: Last medication check: 02/02/23 Last physical exam: 07/16/22 Next scheduled appointment: 07/23/23 Last date of refill on this medication 03/01/23 1 inhaler 2 refills [facility] 04-05-2023 Telephone encounter Note Rx sent. Follow up as scheduled. [facility] 04-05-2023 Miscellaneous Notes Rx sent. Follow up as scheduled. Prescription Request: Last medication check: 02-02-23 Last physical exam: 07-16-22 Next scheduled appointment: 07-23-23 Last date of refill on this medication 10-12-22 documented in this encounter [facility] 04-05-2023 Telephone encounter Note Prescription Request: Last medication check: 02-02-23 Last physical exam: 07-16-22 Next scheduled appointment: 07-23-23 Last date of refill on this medication 10-12-22 [facility] 02-10-2023 Telephone encounter Note Prescription Request: Last medication check: 01/21/23 Last physical exam: 07/16/22 Next scheduled appointment: 07/23/23 Last date of refill on this medication 04/23/22 16g with 2 refills [facility] 02-10-2023 Miscellaneous Notes Prescription Request: Last medication check: 01/21/23 Last physical exam: 07/16/22 Next scheduled appointment: 07/23/23 Last date of refill on this medication 04/23/22 16g with 2 refills documented in this encounter [facility] 02-02-2023 Evaluation + Plan note Associated Problem(s): Hypertriglyceridemia Controlled, continue strict low-fat low cholesterol diet [facility] 02-02-2023 Evaluation + Plan note Associated Problem(s): Episode of recurrent major depressive disorder (HCC) Remission, continue Zoloft 50 mg daily [facility] 02-02-2023 Miscellaneous Notes Associated Problem(s): Hypertriglyceridemia Controlled, continue strict low-fat low cholesterol diet Associated Problem(s): Episode of recurrent major depressive disorder (HCC) Remission, continue Zoloft 50 mg daily Associated Problem(s): Type 2 diabetes mellitus without complication, without long-term current use of insulin ([facility]/HCC) (HCC) Controlled, currently on no medications continue strict low-carb diet Associated Problem(s): Hypertension Controlled, continue lisinopril hydrochlorothiazide 20/25 Associated Problem(s): COPD (chronic obstructive pulmonary disease) (HCC) Stable, currently using Trelegy daily and her albuterol inhaler and her albuterol nebulizer and DuoNeb solution when needed. Associated Problem(s): Chronic hypoxemic respiratory failure (CMS/HCC) (HCC) Stable, currently on 3 L of oxygen and her oxygen levels will fluctuate from mid to upper 90s to the mid 80s, she will increase her oxygen concentration to 3 L at night and during physical activities. documented in this encounter [facility] 02-02-2023 Evaluation + Plan note Associated Problem(s): Type 2 diabetes mellitus without complication, without long-term current use of insulin (CMS/HCC) (HCC) Controlled, currently on no medications continue strict low-carb diet [facility] 02-02-2023 Evaluation + Plan note Associated Problem(s): Hypertension Controlled, continue lisinopril hydrochlorothiazide 20/25 [facility] 02-02-2023 Evaluation + Plan note Associated Problem(s): COPD (chronic obstructive pulmonary disease) (HCC) Stable, currently using Trelegy daily and her albuterol inhaler and her albuterol nebulizer and DuoNeb solution when needed. [employer] 02-02-2023 Evaluation + Plan note Associated Problem(s): Chronic hypoxemic respiratory failure (CMS/HCC) (HCC) Stable, currently on 3 L of oxygen and her oxygen levels will fluctuate from mid to upper 90s to the mid 80s, she will increase her oxygen concentration to 3 L at night and during physical activities. [employer] 02-02-2023 History of Present illness Narrative Patient verified by last name and date of . Images from the original note were not included. 02/02/2023 Kendra Buitrago (: 1960) is a 62 y.o. female , Established patient, here for evaluation of the following chief complaint(s): Hyperlipidemia, Hypertension, Diabetes, Anxiety, Depression, Medication Check (6 month//Has questions about a couple of medications ), Hospital Follow-up ([place] 01/21-01/22/23/), and Health Maintenance (Hiv/hep c screening- refuse/Mmr vaccine- done as child/Dm eye exam- sees one in [place]/Hep a or b vaccine- refuse/Mammogram- pt has order will call to sched /Shingles vaccine- refuse/Covid 3 vaccine- refuse) ASSESSMENT/PLAN: 1. Chronic hypoxemic respiratory failure (CMS/HCC) (HCC) Assessment & Plan: Stable, currently on 3 L of oxygen and her oxygen levels will fluctuate from mid to upper 90s to the mid 80s, she will increase her oxygen concentration to 3 L at night and during physical activities. 2. Chronic obstructive pulmonary disease, unspecified COPD type ([facility]) Assessment & Plan: Stable, currently using Trelegy daily and her albuterol inhaler and her albuterol nebulizer and DuoNeb solution when needed. 3. Primary hypertension Assessment & Plan: Controlled, continue lisinopril hydrochlorothiazide 4. Type 2 diabetes mellitus without complication, without long-term current use of insulin ([facility]/HCC) ([facility]) Assessment & Plan: Controlled, currently on no medications continue strict low-carb diet 5. Hypertriglyceridemia Assessment & Plan: Controlled, continue strict low-fat low cholesterol diet 6. Mild episode of recurrent major depressive disorder ([facility]) Assessment & Plan: Remission, continue Zoloft 50 mg daily Follow up in about 6 months (around 08/05/2023) for annual. SUBJECTIVE/OBJECTIVE: ABILIO Fraser comes in today for follow-up on her multiple health issues and for hospital admission last week where she was admitted overnight due to coming the office and being hypoxemic and respiratory distress she was treated with breathing treatments and steroids and she turned around nicely. She says she is doing well today her breathing is much better she is not feeling short of breath her oxygen levels are in the 90s when she is at home. She denies any coughing or wheezing at this time. She does have a history of diabetes which is stable in fact her numbers have been in the prediabetes range recently and her cholesterol is well controlled at this time. Review of Systems Constitutional: Negative for chills and fever. Respiratory: Negative for shortness of breath. Cardiovascular: Negative for chest pain and palpitations. Gastrointestinal: Negative for abdominal pain, blood in stool, constipation and diarrhea. Genitourinary: Negative for dyspareunia, dysuria, frequency, hematuria and urgency. Neurological: Negative for weakness and numbness. Psychiatric/Behavioral: Negative for dysphoric mood. The patient is not nervous/anxious. Vitals: 02/02/23 0750 BP: 121/79 Pulse: 76 SpO2: (!) 86% Weight: 205 lb (93 kg) Height: 5' 7 (1.702 m) Physical Exam Vitals and nursing note reviewed. Constitutional: General: She is not in acute distress. Appearance: Normal appearance. HENT: Head: Normocephalic and atraumatic. Right Ear: Tympanic membrane, ear canal and external ear normal. Left Ear: Tympanic membrane, ear canal and external ear normal. Mouth/Throat: Mouth: Mucous membranes are moist. Pharynx: Oropharynx is clear. Eyes: Extraocular Movements: Extraocular movements intact. Pupils: Pupils are equal, round, and reactive to light. Cardiovascular: Rate and Rhythm: Normal rate and regular rhythm. Heart sounds: Normal heart sounds. No murmur heard. Pulmonary: Effort: Pulmonary effort is normal. Breath sounds: Normal breath sounds. Musculoskeletal: Cervical back: Neck supple. Lymphadenopathy: Cervical: No cervical adenopathy. Neurological: Mental Status: She is alert. An electronic signature was used to authenticate this note. Vu Mullins MD 02/02/2023 8:33 AM documented in this encounter [facility] 01-29-2023 Telephone encounter Note Prescription Request: Last medication check: 07/28/22 Last physical exam: 07/16/22 Next scheduled appointment: 02/02/23 Last date of refill on this medication 11/03/22 90 days [facility] 01-29-2023 Miscellaneous Notes Prescription Request: Last medication check: 07/28/22 Last physical exam: 07/16/22 Next scheduled appointment: 02/02/23 Last date of refill on this medication 11/03/22 90 days documented in this encounter [facility] 01-22-2023 Discharge summary Note Date/Time January 22, 2023 11:01am [facility] Medical Records Department [address] [place] [address] Discharge Summary 01/22/23 1057 MR#: [id number] Acct: [id number] Name: KENDRA BUITRAGO Rep #:[id number] : 1960 62 From: Wale sifuentes MD PCP: Dr. Vu Mullins MD Status:ADM IN Location: [place] [address] Providers Date of Admission: 01/21/23 Primary Care Physician: Dr. Vu Mullins MD Reason For Visit: COPD EXACERBATION Diagnosis Discharge Diagnosis (1) Acute exacerbation of chronic obstructive pulmonary disease (COPD): Status: Chronic Code(s): J44.1 - Chronic obstructive pulmonary disease with (acute) exacerbation (2) Acute hypoxemic respiratory failure: Status: Acute Code(s): J96.01 - Acute respiratory failure with hypoxia Medications at Discharge Home Medications albuterol sulfate 90 mcg/actuation aerosol inhaler 1 puff inhalation Q6H PRN SOB09/19/21 calcium carbonate 600 mg-vitamin D3 10 mcg (400 unit) tablet (Calcium 600 + D(3)) 1 tab PO MOWEFR 09/19/21 fluticasone fur. 100 mcg-umeclid 62.5 mcg-vilant 25 mcg inhalat.powder (Trelegy Ellipta) 1 inh inhalation DAILY 09/19/21 lisinopril 20 mg-hydrochlorothiazide 25 mg tablet 1 tab PO DAILY 09/19/21 naproxen sodium 220 mg tablet (Aleve) 220 mg PO BID PRN Pain 09/19/21 omega 6-qiz-nwk-fish oil 1,200 mg (144 mg-216 mg) capsule (Fish Oil) 1,200 cap PO DAILY 09/19/21 simethicone 80 mg chewable tablet 80 mg PO QHS PRN Indigestion 09/19/21 prednisone 10 mg tablet 10 mg PO DAILY #32 tabs 01/22/23 Hospital Course Operations None Procedures None Summary of Care Provided Minutes Spent on Discharge: 34 Hospital Course: Per HPI: KENDRA BUITRAGO, is a 62 F who presents to the hospital after being found hypoxic at her doctor's office. She was 60% on room air because the hose to heroxygen concentrator had disconnected. In the ER she was found to need 15 L nonrebreather initially and she was given multiple treatments of albuterol both here and at her PCPs office. She was also given a dose of steroids. She does have poor air movement and wheezing consistent with a COPD exacerbation. She denies any recent illnesses or fevers or chills. She denies any sick contacts. She does not have a productive cough at this time. She had made the appointmentwith her PCP because she has been having increasing shortness of breath over thelast several days. Chest x-ray in the ER was unremarkable and she does not havea leukocytosis or fever. Her baseline oxygen requirements are 3 L at rest and 4L at night Hospital Course: 1. Acute hypoxic respiratory failure secondary to COPD exacerbation and lack ofhome O2?62-year-old female presented to the hospital from her PCPs office for oxygen saturations at 60% on room air. She is supposed to be on chronic oxygen I believe at 2 to 3 L however at the time of this evaluation they discovered that her oxygen concentrator was disconnected. On arrival to the ER she will beplaced on 15 L nonrebreather though this slowly improved after several doses of albuterol. She was started on steroids. Today she has had improvement in her air movement however she was demanding to go home she says that she felt fine. I discussed with her that we need to do an ambulatory pulse ox first at which point she was 89% on 4 L nasal cannula. I discussed that this was a little bit borderline however she maintained that she was stable to go home and wanted to go home today. I discussed with her the possibility for discharge and she expressed understanding of the risk and benefits of going home and wanted to go home today. We will continue with her oxygen on discharge and will place her jaqui prednisone taper over 2 weeks. Physical Exam Narrative General: Alert, Oriented x3, Cooperative, no acute distress HEENT: Atraumatic, PERRLA, EOMI, Normocephalic Oral: Moist Mucosa Neck: Supple, No JVD Lungs: Diminished, improved air movement, No rhonchi, scattered wheeze, No rales, tachypneic especially with ambulation Cardiovascular: Regular rate, Regular Rhythm, Normal S1, Normal S2, No murmurs Abdomen: Soft, Non Tender, Non-Distended, No Hepato-splenomegaly Extremities: No edema, Capillary Refill Less than 3 Seconds Skin: No rashes, No breakdown Musculoskeletal: No Tenderness to Palpation of Joints or Extremities Neurological: Diminished motor Exam 5/5 strength throughout, Sensory exam intactto light touch and pain Psych/Mental Status: Normal Affect, Appropriate Weight / BMI Weight Weight: 205 lb 4.006 oz Body Mass Index (BMI) 32.1 ABG / Lab / Microbiology Data 01/22/23 05:35 01/22/23 05:35 Laboratory: Laboratory Results - last 24 hr 01/21/23 08:59: B-Natriuretic Peptide 23.1 01/22/23 05:35: WBC 10.1, RBC 4.78, Hgb 14.7, Hct 47.6 H, MCV 99.6 H, MCH 30.8, MCHC 30.9 L, RDW Std Deviation 46.7 H, RDW Coeff of Keila 12.5, Plt Count 248, MPV9.8, Immature Gran % (Auto) 1.200 H, Neut % (Auto) 88.1 H, Lymph % (Auto) 6.3 L,[place] % (Auto) 4.1, Eos % (Auto) 0.0, Baso % (Auto) 0.3, Absolute Neuts (auto) 8.9 H, Absolute Lymphs (auto) 0.64 L, Nucleated RBC % 0, Sodium 138, Potassium 4.0, Chloride 99, Carbon Dioxide 36.0 H, Anion Gap 3 L, BUN 22 H, Creatinine 0.74, Estim Creat Clear Calc 74.69, Est GFR (MDRD) Af Amer 101, Est GFR (MDRD) Non-Af 84, BUN/Creatinine Ratio 29.7 H, Glucose 209 H, Calcium 9.2 Microbiology: Microbiology 01/21/23 08:59 Nasal Secretion SARS-CoV-2 Antigen (Rapid) - Final D/C Instructions Discharge Diet: Low fat / Low cholesterol Call your doctor if you observe: Fever of 101 or Higher, Shortness of breath, Dizziness, Fainting spells, Swelling in the ankles, Chest pain and Increased palpitations (irregular heartbeat) Meaningful Use Info Meaningful Use Diagnoses (Choose all that apply): None applicable Discharge Plan Admission Admit Date/Time: 01/21/23 11:01 Attending Provider: Wale Villanueva Primary Care Provider: Vu Mullins Discharge Orders/Prescriptions Prescriptions: New prednisone 10 mg tablet 10 mg PO DAILY Qty: 32 0RF Rx Instructions: Take 4 tablets for 3 days then 3 tablets for 3 days then 2 tablets for 3 daysthen 1 tablet for 3 days then half tablet for 4 days Continued naproxen sodium [Aleve] 220 mg Tablet 220 mg PO BID PRN (Reason: Pain) lisinopril-hydrochlorothiazide 20-25 mg Tablet 1 tab PO DAILY albuterol sulfate 90 mcg/actuation Hfa Aerosol Inhaler 1 puff INHALATION Q6H PRN (Reason: SOB) simethicone 80 mg Tablet,Chewable 80 mg PO QHS PRN (Reason: Indigestion) calcium carbonate-vitamin D3 [Calcium 600 + D(3)] 600 mg-10 mcg (400 unit) Tablet 1 tab PO MOWEFR omega 9-ooq-zyi-fish oil [Fish Oil] 1,200 (144-216) mg Capsule 1,200 cap PO DAILY Trelegy Ellipta 100-62.5-25 mcg Blister With Device 1 inh INHALATION DAILY Referrals / Follow Up: Vu Mullins MD [Primary Care Provider] - Within 1 Week Disposition Disposition (needs filled in before D/C Order can be placed): Home, Self Care Charges/Coding Visit Charges Inpatient E&M: 83385 Disch Hosp >30min 01/22/23 1101 <Electronically signed by Wale Villanueva MD> Cosigner Signature (if applicable): CC: Dr. Vu Mullins MD; Dr. Wale Villanueva MD~ Signed [facility] Work Phone: 1(246) 353-881308-18-2023 Discharge summary Author Wale Villanueva [facility] January 22, 2023 10:57am Note Date/Time January 22, 2023 10 :50am [facility] Medical Records Department [address] [place] [address] Instructions for Home/Discharge Instructions 01/22/23 1049 MR#: [id number] Acct: [id number] Name: KENDRA BUITRAGO Rep #:[id number] : 1960 62 From: Wale sifuentes MD PCP: Dr. Vu Mullins MD Status:ADM IN Discharge Instructions Diet Discharge Diet: Low fat / Low cholesterol Activity Discharge Activity: Return to Normal Activity Dressing / Incision Call your doctor if you observe: Fever of 101 or Higher, Shortness of breath, Dizziness, Fainting spells, Swelling in the ankles, Chest pain and Increased palpitations (irregular heartbeat) Follow Up Care Test Results: Test results from this visit will be discussed in further detail at your follow- up appointment, if applicable. Discharge Plan Admission Admit Date/Time: 01/21/23 11:01 Attending Provider: Wale Villanueva Primary Care Provider: Susanna,Vu Discharge Orders/Prescriptions Prescriptions: New prednisone 10 mg tablet 10 mg PO DAILY Qty: 32 0RF Rx Instructions: Take 4 tablets for 3 days then 3 tablets for 3 days then 2 tablets for 3 daysthen 1 tablet for 3 days then half tablet for 4 days Continued naproxen sodium [Aleve] 220 mg Tablet 220 mg PO BID PRN (Reason: Pain) lisinopril-hydrochlorothiazide 20-25 mg Tablet 1 tab PO DAILY albuterol sulfate 90 mcg/actuation Hfa Aerosol Inhaler 1 puff INHALATION Q6H PRN (Reason: SOB) simethicone 80 mg Tablet,Chewable 80 mg PO QHS PRN (Reason: Indigestion) calcium carbonate-vitamin D3 [Calcium 600 + D(3)] 600 mg-10 mcg (400 unit) Tablet 1 tab PO MOWEFR omega 0-ehp-ddr-fish oil [Fish Oil] 1,200 (144-216) mg Capsule 1,200 cap PO DAILY Trelegy Ellipta 100-62.5-25 mcg Blister With Device 1 inh INHALATION DAILY Referrals / Follow Up: Vu Mullins MD [Primary Care Provider] - Within 1 Week Disposition Disposition (needs filled in before D/C Order can be placed): Home, Self Care 01/22/23 1057<Electronically signed by Wale Villanueva MD>Wale Villanueva MD CC: Dr. Vu Mullins MD ~ Signed [facility] Work Phone: 1([phone]) 488-330108-17-2023 Discharge summary Author Michael Frost [facility] January 21, 2023 4:17pm Note Date/Time January 21, 2023 9: 21am [facility] Medical Records Department [address] [place] [address] Emergency Department Summary 01/21/23 MR#: [id number] Acct: [id number] Name: BUITRAGOMICKEYNEIL Bland Rep #:[id number] : 1960 62 From: Michael Frost MD PCP: Dr. Vu Mullins MD Status:ADM IN Location: [address] History of Present Illness Chief Complaint: Shortness of Breath Informant: patient and PCP Narrative Narrative: Increase shortness of breath and cough for the past couple days, seen at PCPs office today, and was extremely short of breath and tight in the chest/lungs with pulse ox around 60% when she arrived, but she was off of her home with 3-4 L of oxygen although she had her concentrator with her and the tubing was not attached to it, they put her on oxygen and despite giving her nebulizer treatments were unable to get her up into the 90s. She sees Dr. Mackenzie for pulmonary and wanted to come here but refused to come by EMS. On her home oxygen 3 L which she uses during the day, 4 at night, she was in the 60s upon arrival here. She denies any fevers or chills. No chest discomfort. Her coughis nonproductive, states it feels like there is phlegm that she cannot get up. She denies any edema in the legs or orthopnea. She does not have any nebulizer or inhalers at home and has been not using these medications for some time. [facility] Medical History Back pain COPD (chronic obstructive pulmonary disease) Easy bruising Heartburn History of pain when walking History of steroid therapy Hypertension Leg cramps On home oxygen therapy Restless legs Shortness of breath on exertion Smoker Wears glasses Home Medications albuterol sulfate 90 mcg/actuation aerosol inhaler 1 puff inhalation Q6H PRN SOB09/19/21 [History Last Taken Unknown] calcium carbonate 600 mg-vitamin D3 10 mcg (400 unit) tablet (Calcium 600 + D(3)) 1 tab PO MOWEFR 09/19/21 [History Last Taken Unknown] fluticasone fur. 100 mcg-umeclid 62.5 mcg-vilant 25 mcg inhalat.powder (Trelegy Ellipta) 1 inh inhalation DAILY 09/19/21 [History Last Taken Unknown] lisinopril 20 mg-hydrochlorothiazide 25 mg tablet 1 tab PO DAILY 09/19/21 [History Last Taken 09/24/21 08:00] naproxen sodium 220 mg tablet (Aleve) 220 mg PO BID PRN Pain 09/19/21 [History Last Taken Unknown] omega 1-grp-ttx-fish oil 1,200 mg (144 mg-216 mg) capsule (Fish Oil) 1,200 cap PO DAILY 09/19/21 [History Last Taken Unknown] simethicone 80 mg chewable tablet 80 mg PO QHS PRN Indigestion 09/19/21 [History Last Taken Unknown] Allergy/AdvReac Type Severity Reaction Status Date / Time Sulfa (Sulfonamide Allergy Angioedema Verified 09/24/21 12:29 Antibiotics) Family History (Updated 01/21/23 @ 12:[address] Wale Villanueva MD) Other Cancer Heart disease Surgical History Hx of appendectomy Hx of colonoscopy Hx of left cataract extraction Hx of right cataract extraction Hx of tonsillectomy Social History Smoking Status: Current some day smoker tobacco type: cigarettes ROS ROS ED Constitutional Constitutional ED: Reports malaise; Denies chills or fever(s) Eyes Eyes: Denies change in vision or diplopia ENT ENT ED: Denies rhinorrhea or sore throat Cardiovascular Cardiovascular: Denies chest pain or palpitations Respiratory/Chest Respiratory/Chest: Reports cough, dyspnea and dyspnea on exertion; Denies sputum Gastrointestinal Gastrointestinal: Denies abdominal pain, diarrhea, nausea or vomiting Genitourinary Genitourinary ED: Denies dysuria or hematuria Musculoskeletal Musculoskeletal: Denies back pain or neck pain Integumentary Denies abscess or rash Neurologic Neurologic: Denies headache(s), paresthesias or weakness Psychiatric Psychiatric: Denies anxiety or suicidal thoughts EXAM Physical Exam Const Vital Signs: 01/21/23 08:48 01/21/23 08:53 01/21/23 08:53 Temperature 98.2 F Temperature Source Temporal Pulse Rate 78 77 Respiratory Rate 30 H 24 H Respiratory Effort Respiratory Depth Respiratory Pattern Blood Pressure 176/80 H Blood Pressure Mean 112 Pulse Ox 60 99 Oxygen Delivery Method Room Air Non-Rebreather Non-Rebreather Oxygen Flow Rate (L/min) 15 15 Fraction of Inspired Oxygen (FIO2) 15 01/21/23 08:52 01/21/23 09:31 01/21/23 10:38 Temperature 98.4 F Temperature Source Oral Pulse Rate 82 73 Respiratory Rate 28 H 18 Respiratory Effort Short of Breath Labored Accessory Muscle Use Respiratory Depth Shallow Respiratory Pattern Tachypnea Blood Pressure 129/68 H Blood Pressure Mean 88 Pulse Ox 91 Oxygen Delivery Method Room Air Nasal Cannula Oxygen Flow Rate (L/min) 4 Fraction of Inspired Oxygen (FIO2) Positive well nourished and well developed Constitutional Narrative: Mild respiratory distress, keenly alert and able to speak General Appearance ED: well developed HEENT Reports moist mucous membranes normocephalic and atraumatic Eyes PERRL and EOMs intact bilaterally Neck full ROM, no lymphadenopathy, supple, no meningeal signs and no JVD Resp Resp Narrative: Mild respiratory distress, sounds extremely tight and diffusely symmetrically diminished with expiratory wheezes throughout and prolonged expiratory phase. Able to speak in 3-7 word sentences. Cardio regular rate, regular rhythm and no murmurs Rate: Negative for tachycardic GI non-tender and non-distended Auscultation: normoactive bowel sounds Palpation: soft Back/Spine no CVA tenderness General Back: other FROM Extremity normal to inspection General Extremety ED: Negative for edema, pulses abnormal or tenderness General Extremity: Negative for edema or pulses abnormal Neuro oriented x3, CN's II-XII intact bilaterally and no sensory deficits noted Sensorium / Orientation: awake and alert Motor Exam: strength 5/5 throughout Skin no rashes or lesions noted and no wounds MDM MDM MDM Narrative Medical decision making narrative: Patient placed on a nonrebreather and given a series of nebulizer treatments in addition to Solu-Medrol 125 IV. ABG was ordered, they obtained a venous specimen which I was okay with, shows a pH of 7.345, indicating she does not necessarily have acute hypercapnia/respiratory acidosis. After nebulizer treatments, she is significantly improved, she still mildly tachypnea, 94% on 6 L nasal cannula certainly improved but she is still in mild distress, I do not think she needs to be admitted to the ICU but I do think admission is warranted here. She is amenable. Chest x-ray 1 view on my interpretation shows no acute pneumonia, COPD chronic hyperexpansion is noted. Lab Data Attestation: I reviewed the patient's lab results. Labs: Laboratory Results - last 24 hr 01/21/23 08:59 WBC 9.7 RBC 4.97 Hgb 15.5 H Hct 49.3 H MCV 99.2 H MCH 31.2 MCHC 31.4 L RDW Std Deviation 47.1 H RDW Coeff of Keila 12.7 Plt Count 226 MPV 9.3 Immature Gran % (Auto) 0.500 Neut % (Auto) 73.0 H Lymph % (Auto) 17.9 L [place] % (Auto) 6.6 Eos % (Auto) 1.3 Baso % (Auto) 0.7 Absolute Neuts (auto) 7.1 Absolute Lymphs (auto) 1.74 Nucleated RBC % 0 Sodium 142 Potassium 3.9 Chloride 100 Carbon Dioxide 39.0 H Anion Gap 3 L BUN 16 Creatinine 0.71 Estim Creat Clear Calc 77.84 Est GFR (MDRD) Af Amer 106 Est GFR (MDRD) Non-Af 87 BUN/Creatinine Ratio 22.4 H Glucose 181 H Calcium 9.3 Troponin I High Sens 11 ABG Data ABG results: ABG 01/21/23 09:17 Specimen Type SHINE VBG pH 7.35 VBG pO2 41 H VBG HCO3 38 H VBG Total CO2 40 H VBG O2 Sat (Calc) 70 VBG Base Excess 12 H POC Mix VBG pCO2 Pt Tmp 69.2 H O2 Delivery Device AeroMask Liter Flow 7.0 Radiography Diagnostic Testing: Clinical Impression(s) from Imaging Studies Chest X-Ray 01/21/23 09:35 IMPRESSION: Hyperinflation. The lungs are clear. Electronically Signed: Ren Santoyo MD at 10:11 EDT , Rhythm Strip Rhythm Strip: Sinus Rhythm Rate: 85 Ectopy: None EKG Initial EKG: Attestation: I personally reviewed and interpreted this EKG as follows: Interpretation: Sinus Rhythm and No Acute Injury Pattern Comments: nml EKG Management Discussion w/another healthcare provider: Hospitalist and PCP Discharge Plan Dx/Rx/DC Orders Clinical Impression: Acute hypoxemic respiratory failure, Acute exacerbation of chronic obstructive pulmonary disease (COPD) Disposition Disposition: Acute Care Hospital [facility] Discharge Date/Time: 01/21/23 11:48 What to do if you have Problems For any increased pain, shortness of breath, bleeding, nausea or vomiting, chestpain, or any unexpected problems, contact your Primary Care Provider. Call [facility] ([phone]) or report to the closest Emergency Room. Call 911 if necessary. 01/21/23 1617 <Electronically signed by Michael Frost MD> Cosigner Signature (if applicable): CC: Dr. Vu Mullins MD ~ Signed [facility] Work Phone: 1(237) 829-579508-17-2023 History and physical note Author Wale Villanueva [facility] January 21, 2023 12:55pm Note Date/Time January 21, 2023 11 :00am [facility] Medical Records Department [address] [place] [address] H&P Exam - Hospitalist 01/21/23 1057 MR#: [id number] Acct: [id number] Name: KENDRA BUITRAGO Rep #:[id number] : 1960 62 From: Wale sifuentes MD PCP: Dr. Vu Mullins MD Status:ADM IN Location: [place] [address] HPI - General General Date of Admission: 01/21/23 HPI Narrative KENDRA BUITRAGO, is a 62 F who presents to the hospital after being found hypoxic at her doctor's office. She was 60% on room air because the hose to her oxygen concentrator had disconnected. In the ER she was found to need 15 L nonrebreather initially and she was given multiple treatments of albuterol both here and at her PCPs office. She was also given a dose of steroids. She does have poor air movement and wheezing consistent with a COPD exacerbation. She denies any recent illnesses or fevers or chills. She denies any sick contacts. She does not have a productive cough at this time. She had made the appointmentwith her PCP because she has been having increasing shortness of breath over thelast several days. Chest x-ray in the ER was unremarkable and she does not havea leukocytosis or fever. Her baseline oxygen requirements are 3 L at rest and 4L at night [facility] Medical History Back pain COPD (chronic obstructive pulmonary disease) Easy bruising Heartburn History of pain when walking History of steroid therapy Hypertension Leg cramps On home oxygen therapy Restless legs Shortness of breath on exertion Smoker Wears glasses Home Medications albuterol sulfate 90 mcg/actuation aerosol inhaler 1 puff inhalation Q6H PRN SOB09/19/21 [History Last Taken Unknown] calcium carbonate 600 mg-vitamin D3 10 mcg (400 unit) tablet (Calcium 600 + D(3)) 1 tab PO MOWEFR 09/19/21 [History Last Taken Unknown] fluticasone fur. 100 mcg-umeclid 62.5 mcg-vilant 25 mcg inhalat.powder (Trelegy Ellipta) 1 inh inhalation DAILY 09/19/21 [History Last Taken Unknown] lisinopril 20 mg-hydrochlorothiazide 25 mg tablet 1 tab PO DAILY 09/19/21 [History Last Taken 09/24/21 08:00] naproxen sodium 220 mg tablet (Aleve) 220 mg PO BID PRN Pain 09/19/21 [History Last Taken Unknown] omega 2-yqn-wux-fish oil 1,200 mg (144 mg-216 mg) capsule (Fish Oil) 1,200 cap PO DAILY 09/19/21 [History Last Taken Unknown] simethicone 80 mg chewable tablet 80 mg PO QHS PRN Indigestion 09/19/21 [History Last Taken Unknown] Allergy/AdvReac Type Severity Reaction Status Date / Time Sulfa (Sulfonamide Allergy Angioedema Verified 09/24/21 12:29 Antibiotics) Family History (Updated 01/21/23 @ 12:[address] Wale Villanueva MD) Other Cancer Heart disease Surgical History Hx of appendectomy Hx of colonoscopy Hx of left cataract extraction Hx of right cataract extraction Hx of tonsillectomy Social History Smoking Status: Current some day smoker tobacco type: cigarettes ROS Constitutional Constitutional: Denies chills, fatigue, fever(s) or malaise Eyes Eyes: Denies blurry vision ENT HEENT: Denies headache(s) or nasal discharge Cardiovascular Cardiovascular: Denies chest pain, dyspnea on exertion or syncope Respiratory/Chest Respiratory/Chest: Reports cough, shortness of breath at rest and shortness of breath with exertion Gastrointestinal Gastrointestinal: Denies constipation, diarrhea, nausea or vomiting Genitourinary Genitourinary: Denies dysuria Neurologic Neurologic: Denies focal weakness, numbness or tremor(s) Psychiatric Psychiatric: Denies anxiety or depression Vital Signs Vital Signs Vital Signs: 01/21/23 08:48 01/21/23 08:53 01/21/23 08:53 Temperature 98.2 F Temperature Source Temporal Pulse Rate 78 77 Respiratory Rate 30 H 24 H Respiratory Effort Respiratory Depth Respiratory Pattern Blood Pressure 176/80 H Blood Pressure Mean 112 Pulse Ox 60 99 Oxygen Delivery Method Room Air Non-Rebreather Non-Rebreather Oxygen Flow Rate (L/min) 15 15 Fraction of Inspired Oxygen (FIO2) 15 01/21/23 08:52 01/21/23 09:31 01/21/23 10:38 Temperature 98.4 F Temperature Source Oral Pulse Rate 82 73 Respiratory Rate 28 H 18 Respiratory Effort Short of Breath Labored Accessory Muscle Use Respiratory Depth Shallow Respiratory Pattern Tachypnea Blood Pressure 129/68 H Blood Pressure Mean 88 Pulse Ox 91 Oxygen Delivery Method Room Air Nasal Cannula Oxygen Flow Rate (L/min) 4 Fraction of Inspired Oxygen (FIO2) Weight Weight: 213 lb 2.992 oz Body Mass Index (BMI) 33.3 Physical Exam Narrative General: Alert, Oriented x3, Cooperative, moderate respiratory distress HEENT: Atraumatic, PERRLA, EOMI, Normocephalic Oral: Moist Mucosa Neck: Supple, No JVD Lungs: Diminished, poor air movement, No rhonchi, scattered wheeze, No rales, tachypneic, tripoding Cardiovascular: Regular rate, Regular Rhythm, Normal S1, Normal S2, No murmurs Abdomen: Soft, Non Tender, Non-Distended, No Hepato-splenomegaly Extremities: No edema, Capillary Refill Less than 3 Seconds Skin: No rashes, No breakdown Musculoskeletal: No Tenderness to Palpation of Joints or Extremities Neurological: Diminished motor Exam 5/5 strength throughout, Sensory exam intactto light touch and pain Psych/Mental Status: Normal Affect, Appropriate Results Lab / Micro Data 01/21/23 08:59 01/21/23 08:59 Labs: Laboratory Results - last 24 hr 01/21/23 08:59: WBC 9.7, RBC 4.97, Hgb 15.5 H, Hct 49.3 H, MCV 99.2 H, MCH 31.2,MCHC 31.4 L, RDW Std Deviation 47.1 H, RDW Coeff of Keila 12.7, Plt Count 226, MPV9.3, Immature Gran % (Auto) 0.500, Neut % (Auto) 73.0 H, Lymph % (Auto) 17.9 L, [place] % (Auto) 6.6, Eos % (Auto) 1.3, Baso % (Auto) 0.7, Absolute Neuts (auto) 7.1, Absolute Lymphs (auto) 1.74, Nucleated RBC % 0, Sodium 142, Potassium 3.9, Chloride 100, Carbon Dioxide 39.0 H, Anion Gap 3 L, BUN 16, Creatinine 0.71, Estim Creat Clear Calc 77.84, Est GFR (MDRD) Af Amer 106, Est GFR (MDRD) Non-Af 87, BUN/Creatinine Ratio 22.4 H, Glucose 181 H, Calcium 9.3, Troponin I High Sens 11 Micro: Microbiology 01/21/23 08:59 Nasal Secretion SARS-CoV-2 Antigen (Rapid) - Final ABG Data ABG results: ABG 01/21/23 09:17 Specimen Type SHINE VBG pH 7.35 VBG pO2 41 H VBG HCO3 38 H VBG Total CO2 40 H VBG O2 Sat (Calc) 70 VBG Base Excess 12 H POC Mix VBG pCO2 Pt Tmp 69.2 H O2 Delivery Device AeroMask Liter Flow 7.0 Rhythm Strip Rhythm Strip: Sinus Rhythm Rate: 85 Ectopy: None Radiology Impression Chest X-Ray 01/21/23 09:35 IMPRESSION: Hyperinflation. The lungs are clear. Electronically Signed: Ren Santoyo MD at 10:11 EDT , Assessment & Plan Assessment/Plan (1) Acute exacerbation of chronic obstructive pulmonary disease (COPD): (2) Acute hypoxemic respiratory failure: PLAN: Plan 1. Acute hypoxic respiratory failure secondary to COPD exacerbation ? Obtain sputum culture ? Continue with inhalers and steroids ? She was down to 60% document at the PCPs office on room air ? Continue with incentive spirometer ? Wean oxygen as able 2. HTN ? Blood pressures are stable ? Can resume her home blood pressure medications DVT: Lovenox 75 minutes was spent on direct patient care, including documentation as well as chart review and collaboration with colleagues Charges/Coding Visit Charges Inpatient E&M: 59577 Init Hosp L3 01/21/23 1255 <Electronically signed by Wale Villanueva MD> Cosigner Signature (if applicable): CC: Dr. Vu Mullins MD; Dr. Wale Villanueva MD~ Signed [facility] Work Phone: 1(611) 716-730808-17-2023 Evaluation + Plan note* Assessment & Plan Note - Vu Mullins MD - 01/21/2023 8:15 AM EDTAssociated Problem(s): Chronic hypoxemic respiratory failure (CMS/HCC) (HCC) Significant hypoxemia, [id number] Miscellaneous Notes* Assessment & Plan Note - Vu Mullins MD - 01/21/2023 8:15 AM EDTAssociated Problem(s): Chronic hypoxemic respiratory failure (CMS/HCC) (HCC) Significant hypoxemia, patient was sent to the emergency room * Assessment & Plan Note - Vu Mullins MD - 01/21/2023 8:14 AM EDT Associated Problem(s): COPD exacerbation (HCC) Patient was noted to have pulse ox of low 80s upper 70s after nebulizer therapy of brought up to the upper 80s to mid 80s, she was given the option of going to the emergency room by squad or having someone take her. She refused to go by squad and called her [id number] to transport her to [facility], I did contact the emergency room and gave them a heads up that she would be on her way and would need migue admitted. 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 documented in this encounterSumma [id number] Evaluation + Plan note* Assessment & Plan Note - Vu Mullins MD - 01/21/2023 8:14 AM EDT Associated Problem(s): COPD exacerbation (HCC) Patient was noted to have pulse ox of low 80s upper 70s after nebulizer therapy of brought up to the upper 80s to mid 80s, she was given the option of going to the emergency room by squad or having someone take her. She refused to go by squad and called her gsihfmj-hg-eur to transport her to [facility], I did contact the emergency room and gave them a heads up that she would be on her way and would need migue admitted. 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 [facility] [id number] History of Present illness Narrative* Carina Fox MA - 01/21/2023 7:15 AM EDT Patient verified by last name and date of . * Vu Mullins MD - 01/21/2023 7:15 AM EDT Images from the original note were not included. 01/21/2023 Kendra Buitrago (: 1960) is a 62 y.o. female , Established patient, here for evaluation of the following chief complaint(s): Nasal Congestion (Onset a few days ago, denies fever/chills, denies sore throat/body aches/headache) ASSESSMENT/PLAN: 1. COPD exacerbation (HCC) Assessment & Plan: Patient was noted to have pulse ox of low 80s upper 70s after nebulizer therapy of brought up to the upper 80s to mid 80s, she was given the option of going to the emergency room by squad or having someone take her. She refused to go by squad and called her jskygkg-to-gyr to transport her to [facility], I did contact the emergency room and gave them a heads up that she would be on her way and would need migue admitted. 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 Orders: - ipratropium-albuterol (Duo-Neb) 0.5-2.5 mg/3 mL nebulizer solution 3 mL; 3 mL, Nebulization, Once, On Renetta 01/21/23 at 0745, For 1 dose 2. Chronic hypoxemic respiratory failure (CMS/HCC) ([facility]) Assessment & Plan: Significant hypoxemia, patient was sent to the emergency room Follow up if symptoms worsen or fail to improve. SUBJECTIVE/OBJECTIVE: ABILIO Fraser comes in today stating that she feels like she is having chest congestion and sinus congestion and having trouble getting oxygen into her lungs. She says she has been wheezing that she thinks she is past the point of wheezing at this time, says she has not been using her nebulizer at home and has only been using her puffer about 4-5 times a day. She said this has been ongoing for couple of days and when she walked in her oxygen saturation was 61% but her oxygen tube had, up. When I saw her her oxygen saturation was 81 and had dropped to 77. Review of Systems Constitutional: Negative for chills and fever. HENT: Negative for ear pain, rhinorrhea and sinus pressure. Respiratory: Negative for shortness of breath. Cardiovascular: Negative for chest pain and palpitations. Vitals: 01/21/23 0713 01/21/23 0745 BP: (!) 158/63 113/74 Pulse: 91 83 SpO2: (!) 61% (!) 80% Weight: 207 lb 6.4 oz (94.1 kg) Height: 5' 7 (1.702 m) Physical Exam Vitals and nursing note reviewed. Constitutional: General: She is not in acute distress. Appearance: Normal appearance. HENT: Head: Normocephalic and atraumatic. Mouth/Throat: Mouth: Mucous membranes are moist. Pharynx: Oropharynx is clear. Eyes: Extraocular Movements: Extraocular movements intact. Pupils: Pupils are equal, round, and reactive to light. Cardiovascular: Rate and Rhythm: Normal rate and regular rhythm. Heart sounds: Normal heart sounds. No murmur heard. Pulmonary: Effort: Pulmonary effort is normal. Breath sounds: Decreased air movement present. Examination of the right-upper field reveals decreased breath sounds. Examination of the left-upper field reveals decreased breath sounds. Examination of the right-middle field reveals decreased breath sounds. Examination of the left-middle field reveals decreased breath sounds. Examination of the right-lower field reveals decreased breath sounds. Examination of the left-lower field reveals decreased breath sounds. Decreased breath sounds present. Comments: After nebulizer therapy her oxygen level was 86-89, her lungs sounds showed no significant improvement, a second nebulizer therapy was started. Musculoskeletal: Cervical back: Neck supple. Lymphadenopathy: Cervical: No cervical adenopathy. Neurological: Mental Status: She is alert. An electronic signature was used to authenticate this note. Vu Mullins MD 01/21/2023 8:16 AM * Maria Elena Souza - 01/21/2023 7:15 AM EDT Administrations This Visit ipratropium-albuterol (Duo-Neb) 0.5-2.5 mg/3 mL nebulizer solution 3 mL Admin Date 01/21/2023 Action Given Dose 6 mL Route Nebulization Administered By Maria Elena Souza documented in this encounterSMercy Health Urbana [id number] Telephone encounter Note* Telephone Encounter - ESAU Hunt CNP - 01/12/2023 11:18 AM EDT Reviewed chart. Refill appropriate. RX sent. [facility] [id number] Miscellaneous Notes* Telephone Encounter - ESAU Hunt CNP - 01/12/2023 11:18 AM EDT Reviewed chart. Refill appropriate. RX sent. * Telephone Encounter - Louise Carrion MA - 01/12/2023 9:53 AM EDT Prescription Request: Last medication check: 04/20/22 Last physical exam: 07/16/22 Next scheduled appointment: 02/02/23 Last date of refill on this medication 12/17/22 documented in this encounterSMercy Health Urbana [id number] Telephone encounter Note* Telephone Encounter - Louise Carrion MA - 01/12/2023 9:53 AM EDT Prescription Request: Last medication check: 04/20/22 Last physical exam: 07/16/22 Next scheduled appointment: 02/02/23 Last date of refill on this medication 12/17/22 [facility] [id number] Telephone encounter Note* Telephone Encounter - ESAU Hunt CNP - 12/17/2022 11:00 AM EDT Reviewed chart. Refill appropriate. RX sent. [facility] [id number] Miscellaneous Notes* Telephone Encounter - ESAU Hunt CNP - 12/17/2022 11:00 AM EDT Reviewed chart. Refill appropriate. RX sent. * Telephone Encounter - Louise Carrion MA - 12/17/2022 10:09 AM EDT Prescription Request: Last medication check: 04/20/22 Last physical exam: 07/16/22 Next scheduled appointment: 02/02/23 Last date of refill on this medication 11/03/2022 documented in this encounterSumma [id number] Telephone encounter Note* Telephone Encounter - Louise Carrion MA - 12/17/2022 10:09 AM EDT Prescription Request: Last medication check: 04/20/22 Last physical exam: 07/16/22 Next scheduled appointment: 02/02/23 Last date of refill on this medication 11/03/2022 [facility] [id number] Telephone encounter Note* Telephone Encounter - ESAU Hunt CNP - 11/03/2022 12:58 PM EDT Reviewed chart. Refill appropriate. RX sent. [facility] [id number] Miscellaneous Notes* Telephone Encounter - ESAU Hunt CNP - 11/03/2022 12:58 PM EDT Reviewed chart. Refill appropriate. RX sent. * Telephone Encounter - Louise Carrion MA - 11/03/2022 10:15 AM EDT Prescription Request: Last medication check: 04/20/22 Last physical exam: 07/16/22 Next scheduled appointment: 02/02/23 Last date of refill on this medication 08/10/22 documented in this [facility]05-30-2023 Telephone encounter Note* Telephone Encounter - ESAU Hunt CNP - 11/03/2022 12:57 PM EDT Reviewed chart. Refill appropriate. RX sent. [facility] [id number] Miscellaneous Notes* Telephone Encounter - ESAU Hunt CNP - 11/03/2022 12:57 PM EDT Reviewed chart. Refill appropriate. RX sent. * Telephone Encounter - Louise Carrion MA - 11/03/2022 9:00 AM EDT Prescription Request: Last medication check: 04/20/22 Last physical exam: 07/16/22 Next scheduled appointment: 02/02/23 Last date of refill on this medication 09/07/22 documented in this encounterSMercy Health Urbana HospitalFpymdm04-22-6919 Telephone encounter Note* Telephone Encounter - Louise Carrion MA - 11/03/2022 10:15 AM EDT Prescription Request: Last medication check: 04/20/22 Last physical exam: 07/16/22 Next scheduled appointment: 02/02/23 Last date of refill on this medication 08/10/22 [facility] [id number] Telephone encounter Note* Telephone Encounter - Louise Carrion MA - 11/03/2022 9:00 AM EDT Prescription Request: Last medication check: 04/20/22 Last physical exam: 07/16/22 Next scheduled appointment: 02/02/23 Last date of refill on this medication 09/07/22 [facility] [id number] Telephone encounter Note* Telephone Encounter - ESAU Hunt CNP - 09/07/2022 12:26 PM EDT Reviewed chart. Refill appropriate. Rx sent. [facility] [id number] Miscellaneous Notes* Telephone Encounter - ESAU Hunt CNP - 09/07/2022 12:26 PM EDT Reviewed chart. Refill appropriate. Rx sent. * Telephone Encounter - Darline Craig - 09/07/2022 9:58 AM EDT Images from the original note were not included. Medication name: albuterol 108 (90 Base) MCG/ACT inhaler 2 ordered Summary: inhale 2 puffs by mouth and INTO THE LUNGS every 4 hours if needed for shortness of breathor wheezing Strength: 108 (90 Base) MCG/ACT, Normal Start: 07/10/2022 Ord/Sold: 07/10/2022 (O) Report Adh: Taking: Long-term: Pharmacy: [id number] - [place], [address] Med Dose History Change Patient Sig: inhale 2 puffs by mouth and INTO THE LUNGS every 4 hours if needed for shortness of breath or wheezing Strength: 108 (90 Base) MCG/ACT Ordered on: 07/10/2022 Authorized by: YASEMIN MENARD Dispense: 8.5 g Admin Instructions: inhale 2 puffs by mouth and INTO THE LUNGS every 4 hours if needed for shortness of breath or wheezing Strength: 108 (90 Base) MCG/ACT Prior Authorization: Request PA If this is a controlled substance do you receive this or any other controlled medication from any other doctor or facility: N/A Date of last office visit: not found Date of next office visit: 10/27/2022 Date of last refill: (see medication tab): 07/30/2022 Updated/Validated preferred pharmacy: Yes Patient instructed to contact the pharmacy prior to picking up the medication: Yes documented in this encounterSMercy Health Urbana [id number] Telephone encounter Note* Telephone Encounter - Darline Craig - 09/07/2022 9:58 AM EDT Images from the original note were not included. Medication name: albuterol 108 (90 Base) MCG/ACT inhaler 2 ordered Summary: inhale 2 puffs by mouth and INTO THE LUNGS every 4 hours if needed for shortness of breathor wheezing Strength: 108 (90 Base) MCG/ACT, Normal Start: 07/10/2022 Ord/Sold: 07/10/2022 (O) Report Adh: Taking: Long-term: Pharmacy: [id number] - [place], [place] - [address] [facility] Med Dose History Change Patient Sig: inhale 2 puffs by mouth and INTO THE LUNGS every 4 hours if needed for shortness of breath or wheezing Strength: 108 (90 Base) MCG/ACT Ordered on: 07/10/2022 Authorized by: YASEMIN MENARD Dispense: 8.5 g Admin Instructions: inhale 2 puffs by mouth and INTO THE LUNGS every 4 hours if needed for shortness of breath or wheezing Strength: 108 (90 Base) MCG/ACT Prior Authorization: Request PA If this is a controlled substance do you receive this or any other controlled medication from any other doctor or facility: N/A Date of last office visit: not found Date of next office visit: 10/27/2022 Date of last refill: (see medication tab): 07/30/2022 Updated/Validated preferred pharmacy: Yes Patient instructed to contact the pharmacy prior to picking up the medication: Yes [facility] [id number] Telephone encounter Note* Telephone Encounter - ESAU Hunt CNP - 09/02/2022 4:38 PM EDT Noted. Agree with disposition. [facility] [id number] Miscellaneous Notes* Telephone Encounter - ESAU Hunt CNP - 09/02/2022 4:38 PM EDT Noted. Agree with disposition. * Telephone Encounter - Nicole Hernandez RN - 09/02/2022 3:31 PM EDT S: Patient spoke with [facility] nurse regarding cough B: Onset of symptoms/concern couple days A: Pt has been coughing up yellow phlegm today and has had some wheezing. Has been having some chest congestion for a couple days getting worse. Blowing clear out of her nose. Hx of asthma, COPD and emphysema. Has been using her inhaler and nebulizer. Wears oxygen all the time- has not increased the liters. Denies fever, chest pain, sob, sore throat or ear pain. Asking for an appointment. R: Pt scheduled for an appointment on 09-03-22 at 1:40 pm with Marilee Murray CNP. If difficulty breathing or chest pain, to be seen in ED. Patient understands care advice. Instructed to call back with any further questions or concerns. Reason for Disposition Known COPD or other severe lung disease (i.e., bronchiectasis, cystic fibrosis, lung surgery) and worsening symptoms (i.e., increased sputum purulence or amount, increased breathing difficulty) Answer Assessment - Initial Assessment Questions 1. ONSET: When did the cough begin? Couple days 2. SEVERITY: How bad is the cough today? productive 3. SPUTUM: Describe the color of your sputum (none, dry cough; clear, white, yellow, green) yellow 4. HEMOPTYSIS: Are you coughing up any blood? If so ask: How much? (flecks, streaks, tablespoons, etc.) no 5. DIFFICULTY BREATHING: Are you having difficulty breathing? If Yes, ask: How bad is it? (e.g., mild, moderate, severe) - MILD: No SOB at rest, mild SOB with walking, speaks normally in sentences, can lie down, no retractions, pulse < 100. - MODERATE: SOB at rest, SOB with minimal exertion and prefers to sit, cannot lie down flat, speaksin phrases, mild retractions, audible wheezing, pulse 100-120. - SEVERE: Very SOB at rest, speaks in single words, struggling to breathe, sitting hunched forward,retractions, pulse > 120 Wheezing 6. FEVER: Do you have a fever? If Yes, ask: What is your temperature, how was it measured, and when did it start? no 7. CARDIAC HISTORY: Do you have any history of heart disease? (e.g., heart attack, congestive heart failure) No 8. LUNG HISTORY: Do you have any history of lung disease? (e.g., pulmonary embolus, asthma, emphysema) COPD, asthma, emphysema 9. PE RISK FACTORS: Do you have a history of blood clots? (or: recent major surgery, recent prolonged travel, bedridden) no 10. OTHER SYMPTOMS: Do you have any other symptoms? (e.g., runny nose, wheezing, chest pain) wheezing 11. : Is there any chance you are ? When was your last menstrual period? no 12. TRAVEL: Have you traveled out of the country in the last month? (e.g., travel history, exposures) no Protocols used: [id number] documented in this [facility]03-29-2023 Telephone encounter Note* Telephone Encounter - Nicole Hernandez RN - 09/02/2022 3:31 PM EDT S: Patient spoke with [facility] nurse regarding cough B: Onset of symptoms/concern couple days A: Pt has been coughing up yellow phlegm today and has had some wheezing. Has been having some chest congestion for a couple days getting worse. Blowing clear out of her nose. Hx of asthma, COPD and emphysema. Has been using her inhaler and nebulizer. Wears oxygen all the time- has not increased the liters. Denies fever, chest pain, sob, sore throat or ear pain. Asking for an appointment. R: Pt scheduled for an appointment on 09-03-22 at 1:40 pm with Marilee Murray CNP. If difficulty breathing or chest pain, to be seen in ED. Patient understands care advice. Instructed to call back with any further questions or concerns. Reason for Disposition Known COPD or other severe lung disease (i.e., bronchiectasis, cystic fibrosis, lung surgery) and worsening symptoms (i.e., increased sputum purulence or amount, increased breathing difficulty) Answer Assessment - Initial Assessment Questions 1. ONSET: When did the cough begin? Couple days 2. SEVERITY: How bad is the cough today? productive 3. SPUTUM: Describe the color of your sputum (none, dry cough; clear, white, yellow, green) yellow 4. HEMOPTYSIS: Are you coughing up any blood? If so ask: How much? (flecks, streaks, tablespoons, etc.) no 5. DIFFICULTY BREATHING: Are you having difficulty breathing? If Yes, ask: How bad is it? (e.g., mild, moderate, severe) - MILD: No SOB at rest, mild SOB with walking, speaks normally in sentences, can lie down, no retractions, pulse < 100. - MODERATE: SOB at rest, SOB with minimal exertion and prefers to sit, cannot lie down flat, speaksin phrases, mild retractions, audible wheezing, pulse 100-120. - SEVERE: Very SOB at rest, speaks in single words, struggling to breathe, sitting hunched forward,retractions, pulse > 120 Wheezing 6. FEVER: Do you have a fever? If Yes, ask: What is your temperature, how was it measured, and when did it start? no 7. CARDIAC HISTORY: Do you have any history of heart disease? (e.g., heart attack, congestive heart failure) No 8. LUNG HISTORY: Do you have any history of lung disease? (e.g., pulmonary embolus, asthma, emphysema) COPD, asthma, emphysema 9. PE RISK FACTORS: Do you have a history of blood clots? (or: recent major surgery, recent prolonged travel, bedridden) no 10. OTHER SYMPTOMS: Do you have any other symptoms? (e.g., runny nose, wheezing, chest pain) wheezing 11. : Is there any chance you are ? When was your last menstrual period? no 12. TRAVEL: Have you traveled out of the country in the last month? (e.g., travel history, exposures) no Protocols used: [id number] [facility] [id number] Telephone encounter Note* Telephone Encounter - Yasemin Menard APRN - [facility] - 08/10/2022 2:23 PM EST Rx sent. Follow up as scheduled. [facility] [id number] Miscellaneous Notes* Telephone Encounter - ESAU Salgado CNP - 08/10/2022 2:23 PM EST Rx sent. Follow up as scheduled. * Telephone Encounter - Maria Elena Souza - 08/10/2022 10:05 AM EST Prescription Request: Last medication check: 07/28/22 Last physical exam: 07/16/22 Next scheduled appointment: 10/27/22 Last date of refill on this medication 05/11/22 documented in this encounterSMercy Health Urbana [id number] Telephone encounter Note* Telephone Encounter - Maria Elena Souza - 08/10/2022 10:05 AM EST Prescription Request: Last medication check: 07/28/22 Last physical exam: 07/16/22 Next scheduled appointment: 10/27/22 Last date of refill on this medication 05/11/22 [facility] [id number] Evaluation + Plan note* Assessment & Plan Note - ESAU Hunt CNP - 07/28/2022 1:06 PM ESTAssociated Problem(s): Type 2 diabetes mellitus without complication, without long-term current useof insulin ([facility] ([facility]) Currently on no medications. New diagnosis. Will start dietary and lifestyle changes. Glucose monitoring. Check blood glucose fasting (1st thing in am) and 2 hours after evening meal (post prandial) x 14 days- drop readings off at office. Will recheck hemoglobin A1c in 3 months. [facility] [id number] Miscellaneous Notes* Assessment & Plan Note - ESAU Hunt CNP - 07/28/2022 1:06 PM ESTAssociated Problem(s): Type 2 diabetes mellitus without complication, without long-term current useof insulin (CMS/HCC) ([facility]) Currently on no medications. New diagnosis. Will start dietary and lifestyle changes. Glucose monitoring. Check blood glucose fasting (1st thing in am) and 2 hours after evening meal (post prandial) x 14 days- drop readings off at office. Will recheck hemoglobin A1c in 3 months. documented in this [facility]02-21-2023 Miscellaneous Notes* Assessment & Plan Note - ESAU Hunt CNP - 07/28/2022 1:06 PM ESTAssociated Problem(s): Type 2 diabetes mellitus without complication, without long-term current useof insulin (CMS/HCC) ([facility]) Currently on no medications. New diagnosis. Will start dietary and lifestyle changes. Glucose monitoring. Check blood glucose fasting (1st thing in am) and 2 hours after evening meal (post prandial) x 14 days- drop readings off at office. Will recheck hemoglobin A1c in 3 months. * Addendum Note - ESAU Hunt CNP - 07/28/2022 11:00 AM EST Addended by: MARILEE MURRAY on: 08/04/2022 04:44 PM Modules accepted: Level of Service documented in this [facility]02-21-2023 History of Present illness Narrative* Maria Elena Souza - 07/28/2022 11:00 AM EST Departmental Buyer for Intimate and Non Intimate Exam Departmental Buyer was declined Departmental Buyer: na * Maria Elena Souza - 07/28/2022 11:00 AM EST Called in and gave verbal to Tomasz at [facility] * Maria Elena Souza - 07/28/2022 11:00 AM EST Called in and gave verbal to Tomasz at [facility] * Maria Elena Souza - 07/28/2022 11:00 AM EST Called in and gave verbal to Tomasz at [facility] * Maria Elena Souza - 07/28/2022 11:00 AM EST Called in and gave verbal to Tomasz at [facility] * Marilee Murray APRN - [facility] - 07/28/2022 11:00 AM EST Images from the original note were not included. 07/28/2022 Kendra Buitrago (: 1960) is a 61 y.o. female , Established patient, here for evaluation of the following chief complaint(s): Diabetes ASSESSMENT/PLAN: 1. Type 2 diabetes mellitus without complication, without long-term current use of insulin ([facility] ([facility]) Assessment & Plan: Currently on no medications. New diagnosis. Will start dietary and lifestyle changes. Glucose monitoring. Check blood glucose fasting (1st thing in am) and 2 hours after evening meal (post prandial) x 14 days- drop readings off at office. Will recheck hemoglobin A1c in 3 months. Orders: - Alcohol Swabs (Alcohol Pads) 70 % pads; 1 each 2 times daily as needed (twice daily glucose). As directed daily and as needed., Starting Wed07/28/2022, Until Renetta 08/27/2022 at 2359, Normal - Lancets misc; 1 each 2 times daily as needed (twice daily glucose)., Starting Wed07/28/2022, Until Renetta 08/27/2022 at 2359, Normal - Glucose Blood (Blood Glucose Test) strip; Use as directed 3x day., Normal - Blood Glucose Monitoring Suppl device; Check glucose fasting in am and 2 hours after evening meal., Normal - Hemoglobin A1c We will plan on rechecking hemoglobin A1c in 3 months. Discussed, at length, a healthy diet low in carbohydrates and sugars as well as low in cholesterol and saturated fats. Educated on carbohydrate counting and healthy food choices. Dietary Education- Total carbohydrate intake 50-60% of total caloric intake. -Fats should be 25-30% of total calories. - Fiber should be 25g per 1000 calories - Protein should be 10-20% of total calories Ordered home glucometer and supplies Kendra is to check her blood sugar twice a day (once fasting and once two hours after a meal). Encouraged to call the office if he has any questions/concerns with checking her blood sugar at home or if she has new questions that arise- verbalized understanding. Gave informational booklet on carbohydrate counting and a booklet to record blood sugars in for review. Educated on exercise and the benefits of blood sugar control. Educated on good foot hygiene. Discussed signs and symptoms of hypoglycemia and hyperglycemia- verbalized understanding. Information provided in handouts/booklets and in AVS on diabetes, nutrition, and exercise for patient review. Goals set/reviewed together for diabetes management- goal to improve hemoglobin A1c Portion control, label reading and watching sodium intake, concentrated sweets.- limit canned veggies d/t added salt and sugar-use frozen instead or fresh Exercising after meals (walking) to reduce glucose. On this date, 07/28/2022, I have spent 60 minutes reviewing previous notes, test results, and face to face with the patient discussing the diagnosis and importance of compliance with the treatment plan as well as documenting on the day of the visit. Follow up for as directed pending test results. SUBJECTIVE/OBJECTIVE: ABILIO - Kendra Buitrago (: 1960) is a 61 y.o. female , Established patient, here for the evaluation of the following chief complaint(s): Diabetes New diagnosis. Hemoglobin A1C 6.6. reports that she already has made some changes in her diet but she's not sure what else to do. Has started to cut back on bread and pasta. Is limited with exercising d/t her copd. Would like to lose some weight if that would help. Reports being determined to do what she can to keep from having to take more medications. Eats lean meats mostly, some pork. Likes fish, baked with breading. Usually has canned veggies, baked potatoes. Likes pasta a lot and knows that her portions are likely too big. Prior to Admission medications Medication Sig Start Date End Date Taking? Authorizing Provider albuterol (2.5 MG/3ML) 0.083% nebulizer solution inhale contents of 1 vial ( 3 milliliters ) in nebulizer by mouth... (REFER TO PRESCRIPTION NOTES). 03/27/22 Yes Historical Provider, albuterol 108 (90 Base) MCG/ACT inhaler inhale 2 puffs by mouth and INTO THE LUNGS every 4 hours ifneeded for shortness of breath or wheezing Strength: 108 (90 Base) MCG/ACT 07/10/22 Yes Yasemin Menard APRN - ZANDER Calcium Carb-Cholecalciferol 600-400 MG-UNIT tablet MOWEFR 09/19/21 Yes Historical Provider, COLLAGEN PO Take by mouth. Yes Historical Provider, fluticasone (Flonase) 50 MCG/ACT nasal spray instill 2 sprays into each nostril nightly 04/23/22 Yes Vu Mullins MD ipratropium-albuterol (Duo-Neb) 0.5-2.5 mg/3 mL nebulizer solution inhale contents of 1 vial in nebulizer every 6 hours 03/18/22 Yes Historical Provider, lisinopril-hydroCHLOROthiazide 20-25 MG tablet Take 1 tablet by mouth every morning. 04/13/22 Yes Historical Provider, Mucus Relief ER 600 MG 12 hr tablet take 1 tablet by mouth twice a day for 15 DAYS 02/19/22 Yes Historical Provider, naproxen sodium (Aleve) 220 MG tablet TWICE A DAY 09/19/21 Yes Historical Provider, omega-3 (fish oil) 1200 MG capsule 1,200 capsules. 09/19/21 Yes Historical Provider, oxygen (O2) gas Inhale 2 L/min continuous. via nasal canula 2 liters daytime and 4 liters at night Yes Historical Provider, sertraline (Zoloft) 50 MG tablet Take 1 tablet (50 mg) by mouth daily. 05/11/22 Yes Vu Mullins MD simethicone (Mylicon) 80 MG chewable tablet AT BEDTIME 09/19/21 Yes Historical Provider, MD Ilda Cooney 100-62.5-25 MCG/INH aerosol powder INHALE 1 PUFF INTO THE LUNGS ONCE DAILY WITH GOOD ORAL CARE 04/07/22 Yes Historical Provider, Alcohol Swabs (Alcohol Pads) 70 % pads 1 each 2 times daily as needed (twice daily glucose). As directed daily and as needed. 07/28/22 08/27/22 ESAU Hunt CNP Blood Glucose Monitoring Suppl device Check glucose fasting in am and 2 hours after evening meal. 07/28/22 ESAU Hunt CNP Glucose Blood (Blood Glucose Test) strip Use as directed 3x day. 07/28/22 ESAU Hunt Lancets misc 1 each 2 times daily as needed (twice daily glucose). 07/28/22 08/27/22 ESAU Hunt CNP Health Maintenance Due Topic Date Due Hepatitis A Vaccines (1 of 2 - Risk 2-dose series) Never done MMR Vaccines (1 of 1 - Standard series) Never done Diabetes: Foot Exam Never done Diabetes: Retinopathy Screening Never done Diabetes: Dental Exam Never done Diabetes: Urine Protein Screening Never done Cervical Cancer Screening Never done Zoster Vaccines (1 of 2) Never done Hepatitis B Vaccines (1 of 3 - Risk 3-dose series) Never done COVID-19 Vaccine (3 - Booster for Moderna series) 11/27/2020 Mammogram 08/05/2022 Review of Systems Constitutional: Negative for activity change, appetite change, fatigue and fever. Endocrine: Negative for polydipsia, polyphagia and polyuria. Vitals: 07/28/22 1056 BP: (P) 104/54 Pulse: (P) 94 Resp: (P) 24 SpO2: (!) (P) 87% Weight: 212 lb (96.2 kg) Physical Exam Constitutional: General: She is not in acute distress. Appearance: Normal appearance. She is obese. She is not ill-appearing. Pulmonary: Effort: Pulmonary effort is normal. Neurological: Mental Status: She is alert and oriented to person, place, and time. Psychiatric: Mood and Affect: Mood normal. Behavior: Behavior normal. Thought Content: Thought content normal. Judgment: Judgment normal. An electronic signature was used to authenticate this note. ESAU Hunt CNP 07/28/2022 2:35 PM documented in this [facility]02-21-2023 History of Present illness Narrative* Maria Elena Souza - 07/28/2022 11:00 AM EST Departmental Buyer for Intimate and Non Intimate Exam Departmental Buyer was declined Departmental Buyer: na * Maria Elena Souza - 07/28/2022 11:00 AM EST Called in and gave verbal to Tomasz at [facility] * Maria Elena Souza - 07/28/2022 11:00 AM EST Called in and gave verbal to Tomasz at [facility] * Maria Elena Souza - 07/28/2022 11:00 AM EST Called in and gave verbal to Tomasz at [facility] * Maria Elena Souza - 07/28/2022 11:00 AM EST Called in and gave verbal to Tomasz at [facility] * ESAU Hunt CNP - 07/28/2022 11:00 AM EST Images from the original note were not included. 07/28/2022 Kendra Buitrago (: 1960) is a 61 y.o. female , Established patient, here for evaluation of the following chief complaint(s): Diabetes ASSESSMENT/PLAN: 1. Type 2 diabetes mellitus without complication, without long-term current use of insulin ([facility] Assessment & Plan: Currently on no medications. New diagnosis. Will start dietary and lifestyle changes. Glucose monitoring. Check blood glucose fasting (1st thing in am) and 2 hours after evening meal (post prandial) x 14 days- drop readings off at office. Will recheck hemoglobin A1c in 3 months. Orders: - Alcohol Swabs (Alcohol Pads) 70 % pads; 1 each 2 times daily as needed (twice daily glucose). As directed daily and as needed., Starting Wed07/28/2022, Until Renetta 08/27/2022 at 2359, Normal - Lancets misc; 1 each 2 times daily as needed (twice daily glucose)., Starting e 07/28/2022, Until Renetta 08/27/2022 at 2359, Normal - Glucose Blood (Blood Glucose Test) strip; Use as directed 3x day., Normal - Blood Glucose Monitoring Suppl device; Check glucose fasting in am and 2 hours after evening meal., Normal - Hemoglobin A1c We will plan on rechecking hemoglobin A1c in 3 months. Discussed, at length, a healthy diet low in carbohydrates and sugars as well as low in cholesterol and saturated fats. Educated on carbohydrate counting and healthy food choices. Dietary Education- Total carbohydrate intake 50-60% of total caloric intake. -Fats should be 25-30% of total calories. - Fiber should be 25g per 1000 calories - Protein should be 10-20% of total calories Ordered home glucometer and supplies Kendra is to check her blood sugar twice a day (once fasting and once two hours after a meal). Encouraged to call the office if he has any questions/concerns with checking her blood sugar at home or if she has new questions that arise- verbalized understanding. Gave informational booklet on carbohydrate counting and a booklet to record blood sugars in for review. Educated on exercise and the benefits of blood sugar control. Educated on good foot hygiene. Discussed signs and symptoms of hypoglycemia and hyperglycemia- verbalized understanding. Information provided in handouts/booklets and in AVS on diabetes, nutrition, and exercise for patient review. Goals set/reviewed together for diabetes management- goal to improve hemoglobin A1c Portion control, label reading and watching sodium intake, concentrated sweets.- limit canned veggies d/t added salt and sugar-use frozen instead or fresh Exercising after meals (walking) to reduce glucose. On this date, 07/28/2022, I have spent 60 minutes reviewing previous notes, test results, and face to face with the patient discussing the diagnosis and importance of compliance with the treatment plan as well as documenting on the day of the visit. Follow up for as directed pending test results. SUBJECTIVE/OBJECTIVE: ABILIO Buitrago (: 1960) is a 61 y.o. female , Established patient, here for the evaluation of the following chief complaint(s): Diabetes New diagnosis. Hemoglobin A1C 6.6. reports that she already has made some changes in her diet but she's not sure what else to do. Has started to cut back on bread and pasta. Is limited with exercising d/t her copd. Would like to lose some weight if that would help. Reports being determined to do what she can to keep from having to take more medications. Eats lean meats mostly, some pork. Likes fish, baked with breading. Usually has canned veggies, baked potatoes. Likes pasta a lot and knows that her portions are likely too big. Prior to Admission medications Medication Sig Start Date End Date Taking? Authorizing Provider albuterol (2.5 MG/3ML) 0.083% nebulizer solution inhale contents of 1 vial ( 3 milliliters ) in nebulizer by mouth... (REFER TO PRESCRIPTION NOTES). 03/27/22 Yes Historical Provider, albuterol 108 (90 Base) MCG/ACT inhaler inhale 2 puffs by mouth and INTO THE LUNGS every 4 hours ifneeded for shortness of breath or wheezing Strength: 108 (90 Base) MCG/ACT 07/10/22 Yes Yasemin Menard APRN - ZANDER Calcium Carb-Cholecalciferol 600-400 MG-UNIT tablet MOWEFR 09/19/21 Yes Historical Provider, COLLAGEN PO Take by mouth. Yes Historical Provider, fluticasone (Flonase) 50 MCG/ACT nasal spray instill 2 sprays into each nostril nightly 04/23/22 Yes Vu Mullins MD ipratropium-albuterol (Duo-Neb) 0.5-2.5 mg/3 mL nebulizer solution inhale contents of 1 vial in nebulizer every 6 hours 03/18/22 Yes Historical Provider, lisinopril-hydroCHLOROthiazide 20-25 MG tablet Take 1 tablet by mouth every morning. 04/13/22 Yes Historical Provider, Mucus Relief ER 600 MG 12 hr tablet take 1 tablet by mouth twice a day for 15 DAYS 02/19/22 Yes Historical Provider, naproxen sodium (Aleve) 220 MG tablet TWICE A DAY 09/19/21 Yes Historical Provider, omega-3 (fish oil) 1200 MG capsule 1,200 capsules. 09/19/21 Yes Historical Provider, oxygen (O2) gas Inhale 2 L/min continuous. via nasal canula 2 liters daytime and 4 liters at night Yes Historical Provider, sertraline (Zoloft) 50 MG tablet Take 1 tablet (50 mg) by mouth daily. 05/11/22 Yes Vu Mullins MD simethicone (Mylicon) 80 MG chewable tablet AT BEDTIME 09/19/21 Yes Historical Provider, MD Gonsales Ellipta 100-62.5-25 MCG/INH aerosol powder INHALE 1 PUFF INTO THE LUNGS ONCE DAILY WITH GOOD ORAL CARE 04/07/22 Yes Historical Provider, Alcohol Swabs (Alcohol Pads) 70 % pads 1 each 2 times daily as needed (twice daily glucose). As directed daily and as needed. 07/28/22 08/27/22 Marilee ESAU Murray - PROFESSOR OF FORESTRY Blood Glucose Monitoring Suppl device Check glucose fasting in am and 2 hours after evening meal. 07/28/22 Marilee Cortez TRAUMA NURSE - PROFESSOR OF FORESTRY Glucose Blood (Blood Glucose Test) strip Use as directed 3x day. 07/28/22 Marilee Cortez TRAUMA NURSE -PROFESSOR OF FORESTRY Lancets misc 1 each 2 times daily as needed (twice daily glucose). 07/28/22 08/27/22 ESAU Hunt CNP Health Maintenance Due Topic Date Due Hepatitis A Vaccines (1 of 2 - Risk 2-dose series) Never done MMR Vaccines (1 of 1 - Standard series) Never done Diabetes: Foot Exam Never done Diabetes: Retinopathy Screening Never done Diabetes: Dental Exam Never done Diabetes: Urine Protein Screening Never done Cervical Cancer Screening Never done Zoster Vaccines (1 of 2) Never done Hepatitis B Vaccines (1 of 3 - Risk 3-dose series) Never done COVID-19 Vaccine (3 - Booster for Moderna series) 11/27/2020 Mammogram 08/05/2022 Review of Systems Constitutional: Negative for activity change, appetite change, fatigue and fever. Endocrine: Negative for polydipsia, polyphagia and polyuria. Vitals: 07/28/22 1056 BP: (P) 104/54 Pulse: (P) 94 Resp: (P) 24 SpO2: (!) (P) 87% Weight: 212 lb (96.2 kg) Physical Exam Constitutional: General: She is not in acute distress. Appearance: Normal appearance. She is obese. She is not ill-appearing. Pulmonary: Effort: Pulmonary effort is normal. Neurological: Mental Status: She is alert and oriented to person, place, and time. Psychiatric: Mood and Affect: Mood normal. Behavior: Behavior normal. Thought Content: Thought content normal. Judgment: Judgment normal. An electronic signature was used to authenticate this note. ESAU Hunt CNP 07/28/2022 2:35 PM documented in this [facility]02-21-2023 Instructions* Patient Instructions* ESAU Hunt CNP - 07/28/2022 11:00 AM EST Check blood glucose fasting (1st thing in am) and 2 hours after evening meal (post prandial) x 14 days- drop readings off at office. documented in this [facility]02-21-2023 Instructions* Patient Instructions* ESAU Hunt CNP - 07/28/2022 11:00 AM EST Check blood glucose fasting (1st thing in am) and 2 hours after evening meal (post prandial) x 14 days- drop readings off at office. documented in this [facility]02-21-2023 Note* Addendum Note - ESAU Hunt CNP - 07/28/2022 11:00 AM ESTAddended by: MARILEE MURRAY on: 08/04/2022 04:44 PM Modules accepted: Level of Service [id number] Evaluation + Plan note* Assessment & Plan Note - Vu Mullins MD - 07/16/2022 9:07 AM ESTAssociated Problem(s): Hypertriglyceridemia Controlled, currently on no medications continue low-fat low-carb diet [facility] [id number] Evaluation + Plan note* Assessment & Plan Note - Vu Mullins MD - 07/16/2022 9:07 AM ESTAssociated Problem(s): Anxiety Remission, continue Zoloft 50 mg daily [facility] [id number] Evaluation + Plan note* Assessment & Plan Note - Vu Mullins MD - 07/16/2022 9:07 AM ESTAssociated Problem(s): Episode of recurrent major depressive disorder (HCC) Remission, continue Zoloft 50 mg daily [facility] [id number] Miscellaneous Notes* Assessment & Plan Note - Vu Mullins MD - 07/16/2022 9:07 AM ESTAssociated Problem(s): Hypertriglyceridemia Controlled, currently on no medications continue low-fat low-carb diet * Assessment & Plan Note - Vu Mullins MD - 07/16/2022 9:07 AM EST Associated Problem(s): Anxiety Remission, continue Zoloft 50 mg daily * Assessment & Plan Note - Vu Mullins MD - 07/16/2022 9:07 AM EST Associated Problem(s): Episode of recurrent major depressive disorder (HCC) Remission, continue Zoloft 50 mg daily * Assessment & Plan Note - Vu Mullins MD - 07/16/2022 9:06 AM EST Associated Problem(s): Hypertension Controlled, continue lisinopril hydrochlorothiazide 20/25 daily. * Assessment & Plan Note - Vu Mullins MD - 07/16/2022 9:06 AM EST Associated Problem(s): COPD (chronic obstructive pulmonary disease) (HCC) Stable, continue Trelegy, albuterol, DuoNeb solution for her nebulizer. documented in this [facility]02-09-2023 Evaluation + Plan note* Assessment & Plan Note - Vu Mullins MD - 07/16/2022 9:06 AM EST Associated Problem(s): Hypertension Controlled, continue lisinopril hydrochlorothiazide 20/25 daily. [facility] [id number] Evaluation + Plan note* Assessment & Plan Note - Vu Mullins MD - 07/16/2022 9:06 AM ESTAssociated Problem(s): COPD (chronic obstructive pulmonary disease) (HCC) Stable, continue Trelegy, albuterol, DuoNeb solution for her nebulizer. [facility] [id number] History of Present illness Narrative* Carina Fox MA - 07/16/2022 8:45 AM EST Patient verified by last name and date of . Patient wants a earthmoving labourer in the room during during the visit. no Departmental Buyer na * Vu Mullins MD - 07/16/2022 8:45 AM EST Images from the original note were not included. 07/16/2022 Martin Buitrago (: 1960) is a 61 y.o. female , Established patient, here for evaluation of thefollowing chief complaint(s): Annual Exam (Breast exam ), Blood Work, and Health Maintenance (Flu vaccine- refuse/Pap- pt refuse/Pcv 20 vaccine- refuse) ASSESSMENT/PLAN: 1. Well female exam without gynecological exam 2. Chronic obstructive pulmonary disease, unspecified COPD type (HCC) Assessment & Plan: Stable, continue Trelegy, albuterol, DuoNeb solution for her nebulizer. 3. Primary hypertension Assessment & Plan: Controlled, continue lisinopril hydrochlorothiazide 20/25 daily. 4. Mild episode of recurrent major depressive disorder (HCC) Assessment & Plan: Remission, continue Zoloft 50 mg daily 5. Anxiety Assessment & Plan: Remission, continue Zoloft 50 mg daily 6. Hypertriglyceridemia Assessment & Plan: Controlled, currently on no medications continue low-fat low-carb diet Orders: - Lipid panel 7. Screening for diabetes mellitus - Comprehensive metabolic panel 8. Encounter for screening mammogram for malignant neoplasm of breast - Bilateral screening mammogram Follow up in about 6 months (around 01/13/2023). SUBJECTIVE/OBJECTIVE: ABILIO Fraser comes in today for annual well female exam, she has had a hysterectomy does not need a Paptest. She is also here for follow-up on her hypertension, her COPD depression and anxiety and her hypertriglyceridemia and all seem to be fairly stable at this time on her current medications. She denies any complaints at this time, see ROS. Review of Systems Constitutional: Negative for chills and fever. Respiratory: Negative for shortness of breath. Cardiovascular: Negative for chest pain and palpitations. Gastrointestinal: Negative for abdominal pain, blood in stool, constipation and diarrhea. Genitourinary: Negative for dyspareunia, dysuria, frequency, hematuria and urgency. Denies breast tenderness nipple discharge or lumps Neurological: Negative for weakness and numbness. Psychiatric/Behavioral: Negative for dysphoric mood. The patient is not nervous/anxious. Vitals: 07/16/22 0846 BP: 139/68 Pulse: 83 Weight: 212 lb 9.6 oz (96.4 kg) Height: 5' 7 (1.702 m) Physical Exam Vitals and nursing note reviewed. Constitutional: General: She is not in acute distress. Appearance: Normal appearance. HENT: Head: Normocephalic. Right Ear: Tympanic membrane, ear canal and external ear normal. Left Ear: Tympanic membrane, ear canal and external ear normal. Mouth/Throat: Mouth: Mucous membranes are moist. Pharynx: Oropharynx is clear. Eyes: Extraocular Movements: Extraocular movements intact. Pupils: Pupils are equal, round, and reactive to light. Neck: Vascular: No carotid bruit. Cardiovascular: Rate and Rhythm: Normal rate and regular rhythm. Heart sounds: Normal heart sounds. No murmur heard. Pulmonary: Effort: Pulmonary effort is normal. Breath sounds: Normal breath sounds. Chest: Breasts: Right: Normal. No inverted nipple, mass, nipple discharge, skin change or tenderness. Left: Normal. No inverted nipple, mass, nipple discharge, skin change or tenderness. Abdominal: General: Bowel sounds are normal. Palpations: Abdomen is soft. Musculoskeletal: General: Normal range of motion. Cervical back: Normal range of motion. Lymphadenopathy: Cervical: No cervical adenopathy. Upper Body: Right upper body: No axillary adenopathy. Left upper body: No axillary adenopathy. Skin: General: Skin is warm and dry. Neurological: General: No focal deficit present. Mental Status: She is alert and oriented to person, place, and time. Psychiatric: Mood and Affect: Mood normal. An electronic signature was used to authenticate this note. Vu Mullins MD 07/16/2022 9:08 AM documented in this [facility] [id number] Telephone encounter Note* Telephone Encounter - ESAU Salgado CNP - 07/10/2022 11:20 AM EST Rx sent. Follow up as scheduled. [facility] [id number] Miscellaneous Notes* Telephone Encounter - ESAU Salgado CNP - 07/10/2022 11:20 AM EST Rx sent. Follow up as scheduled. * Telephone Encounter - Blake Castelan - 07/10/2022 9:56 AM EST Medication name: albuterol 108 (90 Base) MCG/ACT inhaler Pt states she is out of this medication. Medication dosage: 108/90 MCT Monthly quantity needed: 30 How many day supply requestin days Medication route: inhalation (inhaler) Medication administration time(s): as needed (PRN) If taking medication PRN, reason for taking medication: SOB or Wheezing If this is a controlled substance do you receive this or any other controlled medication from any other doctor or facility: N/A Ordering provider: ZANDER Menard Date of last office visit: 07/16/2022 Date of next office visit: 05/25/2022 Date of last refill: (see medication tab): 05/06/2022 Updated/Validated preferred pharmacy: Yes Patient instructed to contact the pharmacy prior to picking up the medication: Yes documented in this [facility]02-03-2023 Telephone encounter Note* Telephone Encounter - Blake Castelan - 07/10/2022 9:56 AM EST Medication name: albuterol 108 (90 Base) MCG/ACT inhaler Pt states she is out of this medication. Medication dosage: 108/90 MCT Monthly quantity needed: 30 How many day supply requestin days Medication route: inhalation (inhaler) Medication administration time(s): as needed (PRN) If taking medication PRN, reason for taking medication: SOB or Wheezing If this is a controlled substance do you receive this or any other controlled medication from any other doctor or facility: N/A Ordering provider: ZANDER Menard Date of last office visit: 07/16/2022 Date of next office visit: 05/25/2022 Date of last refill: (see medication tab): 05/06/2022 Updated/Validated preferred pharmacy: Yes Patient instructed to contact the pharmacy prior to picking up the medication: Yes [facility]* Diagnosis Posterior capsular opacification non visually significant, right eye- Primary Other after-cataract, not obscuring vision documented [facility] this [facility] Phone: Evaluation note* Diagnosis Posterior capsular opacification visually significant, left eye- Primary After-cataract, obscuring vision documented in this encounter [employer] Phone: [employer] noteNo assessment information available [facility] Work Phone: Evaluation note* Diagnosis Chronic obstructive pulmonary disease, unspecified COPD type (HCC)- Primary documented in this encounter [facility] [employer] note* Diagnosis Chronic obstructive pulmonary disease, unspecified COPD type (HCC) documented in this encounter [facility] [employer] note* Diagnosis Chronic obstructive pulmonary disease, unspecified COPD type (HCC) documented in this encounter [facility] [employer] note* Diagnosis Onset Date Resolution Status Acute hypoxemic respiratory failure acute Acute exacerbation of chroni c obstructive pulmonary disease (COPD) chronic [facility] Work Phone: Evaluation note* Diagnosis COPD exacerbation (HCC)- Primary Obstructive chronic bronchitis with exacerbation Chronic hypoxemic respiratory failure (CMS/HCC) (HCC) Chronic respiratory failure [facility]* Diagnosis Chronic hypoxemic respiratory failure (CMS/HCC) (HCC)- Primary Chronic respiratory failure Chronic obstructive pulmonary disease, unspecified COPD type (HCC) Primary hypertension Unspecified essential hypertension Type 2 diabetes mellitus without complication, without long-term current use of insulin (CMS/HCC) (HCC) Hypertriglyceridemia Pure hyperglyceridemia Mild episode of recurrent major depressive disorder (HCC) [facility]* Diagnosis Chronic obstructive pulmonary disease, unspecified COPD type (HCC) [facility]* Diagnosis Well female exam without gynecological exam- Primary Chronic obstructive pulmonary disease, unspecified COPD type (HCC) Chronic hypoxemic respiratory failure (HCC) Chronic respiratory failure Primary hypertension Unspecified essential hypertension Type 2 diabetes mellitus without complication, without long-term current use of insulin (CMS/HCC) (HCC) Hypertriglyceridemia Pure hyperglyceridemia Mild episode of recurrent major depressive disorder (HCC) Anxiety Anxiety state, unspecified Encounter for screening mammogram for malignant neoplasm of breast [facility]* Diagnosis Well female exam without gynecological exam- Primary Chronic obstructive pulmonary disease, unspecified COPD type (HCC) Chronic hypoxemic respiratory failure (HCC) Chronic respiratory failure Primary hypertension Unspecified essential hypertension Type 2 diabetes mellitus without complication, without long-term current use of insulin (CMS/HCC) (HCC) Hypertriglyceridemia Pure hyperglyceridemia Mild episode of recurrent major depressive disorder (HCC) Anxiety Anxiety state, unspecified Encounter for screening mammogram for malignant neoplasm of breast [facility] [facility] Diagnosis COPD with acute exacerbation (HCC)- Primary [facility] Diagnosis COPD with acute exacerbation (HCC)- Primary [facility]* Diagnosis Chronic obstructive pulmonary disease, unspecified COPD type (HCC) documented in this encounter [facility]* Diagnosis COPD with acute exacerbation (HCC)- Primary Swelling of left foot documented in this encounter [facility]* Diagnosis Dependent edema- Primary Edema Chronic hypoxemic respiratory failure (HCC) Chronic respiratory failure Chronic obstructive pulmonary disease, unspecified COPD type (HCC) documented in this [facility]* Diagnosis Chronic obstructive pulmonary disease, unspecified COPD type (HCC) [facility] Respiratory failure (HCC)- Primary Acute respiratory failure Respiratory failure (HCC) Acute respiratory failure [facility] Diagnosis Chronic obstructive pulmonary disease, unspecified COPD type (HCC)- Primary Chronic hypoxemic respiratory failure (HCC) Chronic respiratory failure Primary hypertension Unspecified essential hypertension [facility] Diagnosis Subcutaneous nodule of right forearm- Primary [facility] Diagnosis Subcutaneous nodule of right forearm [facility] Diagnosis Chronic obstructive pulmonary disease, unspecified COPD type (HCC)- Primary Primary hypertension Unspecified essential hypertension Moderate episode of recurrent major depressive disorder (HCC) Type 2 diabetes mellitus without complication, without long-term current use of insulin (CMS/HCC) (HCC) Anxiety Anxiety state, unspecified Hypertriglyceridemia Pure hyperglyceridemia Primary osteoarthritis involving multiple joints [facility] Diagnosis Chronic obstructive pulmonary disease, unspecified COPD type (HCC) [facility] Diagnosis Difficulty sleeping- Primary Unspecified sleep disturbance documented in this encounter [facility]* Diagnosis Chronic obstructive pulmonary disease, unspecified COPD type (HCC)- Primary Refused influenza vaccine Chronic hypoxemic respiratory failure (HCC) Chronic respiratory failure Primary hypertension Unspecified essential hypertension Chronic pain of left knee documented in this encounter [facility]* Diagnosis Chronic pain of left knee documented in this encounter [facility]* Diagnosis Chronic pain of left knee- Primary Menopause Symptomatic menopausal or female climacteric states documented in this encounter [facility]* Diagnosis Moderate episode of recurrent major depressive disorder (HCC)- Primary Anxiety Anxiety state, unspecified Chronic obstructive pulmonary disease, unspecified COPD type (HCC) Primary hypertension Unspecified essential hypertension Chronic obstructive pulmonary disease, unspecified COPD type (HCC)- Primary Primary hypertension Unspecified essential hypertension Moderate episode of recurrent major depressive disorder (HCC) Anxiety Anxiety state, unspecified Chronic hypoxemic respiratory failure (HCC) Chronic respiratory failure Hepatic cyst- Primary Other specified disorders of liver Well female exam without gynecological exam- Primary Chronic obstructive pulmonary disease, unspecified COPD type (HCC) Primary hypertension Unspecified essential hypertension Mild episode of recurrent major depressive disorder (HCC) Anxiety Anxiety state, unspecified Hypertriglyceridemia Pure hyperglyceridemia Screening for diabetes mellitus Encounter for screening mammogram for malignant neoplasm of breast Type 2 diabetes mellitus without complication, without long-term current use of insulin (CMS/HCC) (HCC)- Primary COPD exacerbation (HCC)- Primary Obstructive chronic bronchitis with exacerbation Chronic hypoxemic respiratory failure (HCC) Chronic respiratory failure Chronic hypoxemic respiratory failure (HCC)- Primary Chronic respiratory failure Chronic obstructive pulmonary disease, unspecified COPD type (HCC) Primary hypertension Unspecified essential hypertension Type 2 diabetes mellitus without complication, without long-term current use of insulin (CMS/HCC) (HCC) Hypertriglyceridemia Pure hyperglyceridemia Mild episode of recurrent major depressive disorder (HCC) Well female exam without gynecological exam- Primary Chronic obstructive pulmonary disease, unspecified COPD type (HCC) Chronic hypoxemic respiratory failure (HCC) Chronic respiratory failure Primary hypertension Unspecified essential hypertension Type 2 diabetes mellitus without complication, without long-term current use of insulin (CMS/HCC) (HCC) Hypertriglyceridemia Pure hyperglyceridemia Mild episode of recurrent major depressive disorder (HCC) Anxiety Anxiety state, unspecified Encounter for screening mammogram for malignant neoplasm of breast COPD with acute exacerbation (HCC)- Primary COPD with acute exacerbation (HCC)- Primary Swelling of left foot Dependent edema- Primary Edema Chronic hypoxemic respiratory failure (HCC) Chronic respiratory failure Chronic obstructive pulmonary disease, unspecified COPD type (HCC) Chronic obstructive pulmonary disease, unspecified COPD type (HCC)- Primary Chronic hypoxemic respiratory failure (HCC) Chronic respiratory failure Primary hypertension Unspecified essential hypertension Subcutaneous nodule of right forearm- Primary Chronic obstructive pulmonary disease, unspecified COPD type (HCC)- Primary Primary hypertension Unspecified essential hypertension Moderate episode of recurrent major depressive disorder (HCC) Type 2 diabetes mellitus without complication, without long-term current use of insulin (CMS/HCC) (HCC) Anxiety Anxiety state, unspecified Hypertriglyceridemia Pure hyperglyceridemia Primary osteoarthritis involving multiple joints Chronic obstructive pulmonary disease, unspecified COPD type (HCC)- Primary Refused influenza vaccine Chronic hypoxemic respiratory failure (HCC) Chronic respiratory failure Primary hypertension Unspecified essential hypertension Chronic pain of left knee Chronic pain of left knee- Primary Menopause Symptomatic menopausal or female climacteric states COPD with acute exacerbation (HCC)- Primary Chronic hypoxemic respiratory failure (HCC) Chronic respiratory failure Primary hypertension Unspecified essential hypertension Acute non-recurrent frontal sinusitis [facility] Diagnosis Moderate episode of recurrent major depressive disorder (HCC)- Primary Anxiety Anxiety state, unspecified Chronic obstructive pulmonary disease, unspecified COPD type (HCC) Primary hypertension Unspecified essential hypertension Chronic obstructive pulmonary disease, unspecified COPD type (HCC)- Primary Primary hypertension Unspecified essential hypertension Moderate episode of recurrent major depressive disorder (HCC) Anxiety Anxiety state, unspecified Chronic hypoxemic respiratory failure (HCC) Chronic respiratory failure Hepatic cyst- Primary Other specified disorders of liver Well female exam without gynecological exam- Primary Chronic obstructive pulmonary disease, unspecified COPD type (HCC) Primary hypertension Unspecified essential hypertension Mild episode of recurrent major depressive disorder (HCC) Anxiety Anxiety state, unspecified Hypertriglyceridemia Pure hyperglyceridemia Screening for diabetes mellitus Encounter for screening mammogram for malignant neoplasm of breast Type 2 diabetes mellitus without complication, without long-term current use of insulin (CMS/HCC) (HCC)- Primary COPD exacerbation (HCC)- Primary Obstructive chronic bronchitis with exacerbation Chronic hypoxemic respiratory failure (HCC) Chronic respiratory failure Chronic hypoxemic respiratory failure (HCC)- Primary Chronic respiratory failure Chronic obstructive pulmonary disease, unspecified COPD type (HCC) Primary hypertension Unspecified essential hypertension Type 2 diabetes mellitus without complication, without long-term current use of insulin (CMS/HCC) (HCC) Hypertriglyceridemia Pure hyperglyceridemia Mild episode of recurrent major depressive disorder (HCC) Well female exam without gynecological exam- Primary Chronic obstructive pulmonary disease, unspecified COPD type (HCC) Chronic hypoxemic respiratory failure (HCC) Chronic respiratory failure Primary hypertension Unspecified essential hypertension Type 2 diabetes mellitus without complication, without long-term current use of insulin (CMS/HCC) (HCC) Hypertriglyceridemia Pure hyperglyceridemia Mild episode of recurrent major depressive disorder (HCC) Anxiety Anxiety state, unspecified Encounter for screening mammogram for malignant neoplasm of breast COPD with acute exacerbation (HCC)- Primary COPD with acute exacerbation (HCC)- Primary Swelling of left foot Dependent edema- Primary Edema Chronic hypoxemic respiratory failure (HCC) Chronic respiratory failure Chronic obstructive pulmonary disease, unspecified COPD type (HCC) Chronic obstructive pulmonary disease, unspecified COPD type (HCC)- Primary Chronic hypoxemic respiratory failure (HCC) Chronic respiratory failure Primary hypertension Unspecified essential hypertension Subcutaneous nodule of right forearm- Primary Chronic obstructive pulmonary disease, unspecified COPD type (HCC)- Primary Primary hypertension Unspecified essential hypertension Moderate episode of recurrent major depressive disorder (HCC) Type 2 diabetes mellitus without complication, without long-term current use of insulin (CMS/HCC) (HCC) Anxiety Anxiety state, unspecified Hypertriglyceridemia Pure hyperglyceridemia Primary osteoarthritis involving multiple joints Chronic obstructive pulmonary disease, unspecified COPD type (HCC)- Primary Refused influenza vaccine Chronic hypoxemic respiratory failure (HCC) Chronic respiratory failure Primary hypertension Unspecified essential hypertension Chronic pain of left knee Chronic pain of left knee- Primary Menopause Symptomatic menopausal or female climacteric states COPD with acute exacerbation (HCC)- Primary Chronic hypoxemic respiratory failure (HCC) Chronic respiratory failure Primary hypertension Unspecified essential hypertension Acute non-recurrent frontal sinusitis Chronic obstructive pulmonary disease, unspecified COPD type (HCC) documented in [facility]* Diagnosis Moderate episode of recurrent major depressive disorder (HCC)- Primary Anxiety Anxiety state, unspecified Chronic obstructive pulmonary disease, unspecified COPD type (HCC) Primary hypertension Unspecified essential hypertension Chronic obstructive pulmonary disease, unspecified COPD type (HCC)- Primary Primary hypertension Unspecified essential hypertension Moderate episode of recurrent major depressive disorder (HCC) Anxiety Anxiety state, unspecified Chronic hypoxemic respiratory failure (HCC) Chronic respiratory failure Hepatic cyst- Primary Other specified disorders of liver Well female exam without gynecological exam- Primary Chronic obstructive pulmonary disease, unspecified COPD type (HCC) Primary hypertension Unspecified essential hypertension Mild episode of recurrent major depressive disorder (HCC) Anxiety Anxiety state, unspecified Hypertriglyceridemia Pure hyperglyceridemia Screening for diabetes mellitus Encounter for screening mammogram for malignant neoplasm of breast Type 2 diabetes mellitus without complication, without long-term current use of insulin (CMS/HCC) (HCC)- Primary COPD exacerbation (HCC)- Primary Obstructive chronic bronchitis with exacerbation Chronic hypoxemic respiratory failure (HCC) Chronic respiratory failure Chronic hypoxemic respiratory failure (HCC)- Primary Chronic respiratory failure Chronic obstructive pulmonary disease, unspecified COPD type (HCC) Primary hypertension Unspecified essential hypertension Type 2 diabetes mellitus without complication, without long-term current use of insulin (CMS/HCC) (HCC) Hypertriglyceridemia Pure hyperglyceridemia Mild episode of recurrent major depressive disorder (HCC) Well female exam without gynecological exam- Primary Chronic obstructive pulmonary disease, unspecified COPD type (HCC) Chronic hypoxemic respiratory failure (HCC) Chronic respiratory failure Primary hypertension Unspecified essential hypertension Type 2 diabetes mellitus without complication, without long-term current use of insulin (CMS/HCC) (HCC) Hypertriglyceridemia Pure hyperglyceridemia Mild episode of recurrent major depressive disorder (HCC) Anxiety Anxiety state, unspecified Encounter for screening mammogram for malignant neoplasm of breast COPD with acute exacerbation (HCC)- Primary Swelling of left foot Dependent edema- Primary Edema Chronic hypoxemic respiratory failure (HCC) Chronic respiratory failure Chronic obstructive pulmonary disease, unspecified COPD type (HCC) Chronic obstructive pulmonary disease, unspecified COPD type (HCC)- Primary Chronic hypoxemic respiratory failure (HCC) Chronic respiratory failure Primary hypertension Unspecified essential hypertension Subcutaneous nodule of right forearm- Primary Chronic obstructive pulmonary disease, unspecified COPD type (HCC)- Primary Primary hypertension Unspecified essential hypertension Moderate episode of recurrent major depressive disorder (HCC) Type 2 diabetes mellitus without complication, without long-term current use of insulin (CMS/HCC) (HCC) Anxiety Anxiety state, unspecified Hypertriglyceridemia Pure hyperglyceridemia Primary osteoarthritis involving multiple joints Chronic obstructive pulmonary disease, unspecified COPD type (HCC)- Primary Refused influenza vaccine Chronic hypoxemic respiratory failure (HCC) Chronic respiratory failure Primary hypertension Unspecified essential hypertension Chronic pain of left knee Chronic pain of left knee- Primary Menopause Symptomatic menopausal or female climacteric states COPD with acute exacerbation (HCC)- Primary Chronic hypoxemic respiratory failure (HCC) Chronic respiratory failure Primary hypertension Unspecified essential hypertension Acute non-recurrent frontal sinusitis Nasal congestion- Primary Other diseases of nasal cavity and sinuses documented [facility]* Diagnosis Well female exam without gynecological exam- Primary Chronic obstructive pulmonary disease, unspecified COPD type (HCC) Primary hypertension Unspecified essential hypertension Mild episode of recurrent major depressive disorder (HCC) Anxiety Anxiety state, unspecified Hypertriglyceridemia Pure hyperglyceridemia Screening for diabetes mellitus Encounter for screening mammogram for malignant neoplasm of breast [facility]* Diagnosis Type 2 diabetes mellitus without complication, without long-term current use of insulin (CMS/HCC) (HCC)- Primary [facility]* Diagnosis Type 2 diabetes mellitus without complication, without long-term current use of insulin (CMS/HCC) (HCC)- Primary [facility]* Diagnosis Moderate episode of recurrent major depressive disorder (HCC)- Primary Anxiety Anxiety state, unspecified Chronic obstructive pulmonary disease, unspecified COPD type (HCC) Primary hypertension Unspecified essential hypertension Chronic obstructive pulmonary disease, unspecified COPD type (HCC)- Primary Primary hypertension Unspecified essential hypertension Moderate episode of recurrent major depressive disorder (HCC) Anxiety Anxiety state, unspecified Chronic hypoxemic respiratory failure (HCC) Chronic respiratory failure Hepatic cyst- Primary Other specified disorders of liver Well female exam without gynecological exam- Primary Chronic obstructive pulmonary disease, unspecified COPD type (HCC) Primary hypertension Unspecified essential hypertension Mild episode of recurrent major depressive disorder (HCC) Anxiety Anxiety state, unspecified Hypertriglyceridemia Pure hyperglyceridemia Screening for diabetes mellitus Encounter for screening mammogram for malignant neoplasm of breast Type 2 diabetes mellitus without complication, without long-term current use of insulin ([facility]) (HCC)- Primary COPD exacerbation (HCC)- Primary Obstructive chronic bronchitis with exacerbation Chronic hypoxemic respiratory failure (HCC) Chronic respiratory failure Chronic hypoxemic respiratory failure (HCC)- Primary Chronic respiratory failure Chronic obstructive pulmonary disease, unspecified COPD type (HCC) Primary hypertension Unspecified essential hypertension Type 2 diabetes mellitus without complication, without long-term current use of insulin (CMS/[facility]) ([facility]) Hypertriglyceridemia Pure hyperglyceridemia Mild episode of recurrent major depressive disorder (HCC) Well female exam without gynecological exam- Primary Chronic obstructive pulmonary disease, unspecified COPD type (HCC) Chronic hypoxemic respiratory failure (HCC) Chronic respiratory failure Primary hypertension Unspecified essential hypertension Type 2 diabetes mellitus without complication, without long-term current use of insulin (CMS/[facility]) ([facility]) Hypertriglyceridemia Pure hyperglyceridemia Mild episode of recurrent major depressive disorder (HCC) Anxiety Anxiety state, unspecified Encounter for screening mammogram for malignant neoplasm of breast COPD with acute exacerbation (HCC)- Primary Swelling of left foot Dependent edema- Primary Edema Chronic hypoxemic respiratory failure (HCC) Chronic respiratory failure Chronic obstructive pulmonary disease, unspecified COPD type (HCC) Chronic obstructive pulmonary disease, unspecified COPD type (HCC)- Primary Chronic hypoxemic respiratory failure (HCC) Chronic respiratory failure Primary hypertension Unspecified essential hypertension Subcutaneous nodule of right forearm- Primary Chronic obstructive pulmonary disease, unspecified COPD type (HCC)- Primary Primary hypertension Unspecified essential hypertension Moderate episode of recurrent major depressive disorder (HCC) Type 2 diabetes mellitus without complication, without long-term current use of insulin ([facility] ([facility]) Anxiety Anxiety state, unspecified Hypertriglyceridemia Pure hyperglyceridemia Primary osteoarthritis involving multiple joints Chronic obstructive pulmonary disease, unspecified COPD type (HCC)- Primary Refused influenza vaccine Chronic hypoxemic respiratory failure (HCC) Chronic respiratory failure Primary hypertension Unspecified essential hypertension Chronic pain of left knee Chronic pain of left knee- Primary Menopause Symptomatic menopausal or female climacteric states COPD with acute exacerbation (HCC)- Primary Chronic hypoxemic respiratory failure (HCC) Chronic respiratory failure Primary hypertension Unspecified essential hypertension Acute non-recurrent frontal sinusitis Nasal congestion- Primary Other diseases of nasal cavity and sinuses Chronic obstructive pulmonary disease, unspecified COPD type (HCC)- Primary COPD exacerbation (HCC) Obstructive chronic bronchitis with exacerbation Chronic hypoxemic respiratory failure (HCC) Chronic respiratory failure Acute non-recurrent frontal sinusitis Weakness of both lower extremities documented in this encounter [facility]* Diagnosis Moderate episode of recurrent major depressive disorder (HCC)- Primary Anxiety Anxiety state, unspecified Chronic obstructive pulmonary disease, unspecified COPD type (HCC) Primary hypertension Unspecified essential hypertension Chronic obstructive pulmonary disease, unspecified COPD type (HCC)- Primary Primary hypertension Unspecified essential hypertension Moderate episode of recurrent major depressive disorder (HCC) Anxiety Anxiety state, unspecified Chronic hypoxemic respiratory failure (HCC) Chronic respiratory failure Hepatic cyst- Primary Other specified disorders of liver Well female exam without gynecological exam- Primary Chronic obstructive pulmonary disease, unspecified COPD type (HCC) Primary hypertension Unspecified essential hypertension Mild episode of recurrent major depressive disorder (HCC) Anxiety Anxiety state, unspecified Hypertriglyceridemia Pure hyperglyceridemia Screening for diabetes mellitus Encounter for screening mammogram for malignant neoplasm of breast Type 2 diabetes mellitus without complication, without long-term current use of insulin (CMS/HCC) (HCC)- Primary COPD exacerbation (HCC)- Primary Obstructive chronic bronchitis with exacerbation Chronic hypoxemic respiratory failure (HCC) Chronic respiratory failure Chronic hypoxemic respiratory failure (HCC)- Primary Chronic respiratory failure Chronic obstructive pulmonary disease, unspecified COPD type (HCC) Primary hypertension Unspecified essential hypertension Type 2 diabetes mellitus without complication, without long-term current use of insulin (CMS/HCC) (HCC) Hypertriglyceridemia Pure hyperglyceridemia Mild episode of recurrent major depressive disorder (HCC) Well female exam without gynecological exam- Primary Chronic obstructive pulmonary disease, unspecified COPD type (HCC) Chronic hypoxemic respiratory failure (HCC) Chronic respiratory failure Primary hypertension Unspecified essential hypertension Type 2 diabetes mellitus without complication, without long-term current use of insulin (CMS/HCC) (HCC) Hypertriglyceridemia Pure hyperglyceridemia Mild episode of recurrent major depressive disorder (HCC) Anxiety Anxiety state, unspecified Encounter for screening mammogram for malignant neoplasm of breast COPD with acute exacerbation (HCC)- Primary Swelling of left foot Dependent edema- Primary Edema Chronic hypoxemic respiratory failure (HCC) Chronic respiratory failure Chronic obstructive pulmonary disease, unspecified COPD type (HCC) Chronic obstructive pulmonary disease, unspecified COPD type (HCC)- Primary Chronic hypoxemic respiratory failure (HCC) Chronic respiratory failure Primary hypertension Unspecified essential hypertension Subcutaneous nodule of right forearm- Primary Chronic obstructive pulmonary disease, unspecified COPD type (HCC)- Primary Primary hypertension Unspecified essential hypertension Moderate episode of recurrent major depressive disorder (HCC) Type 2 diabetes mellitus without complication, without long-term current use of insulin ([facility]) (HCC) Anxiety Anxiety state, unspecified Hypertriglyceridemia Pure hyperglyceridemia Primary osteoarthritis involving multiple joints Chronic obstructive pulmonary disease, unspecified COPD type (HCC)- Primary Refused influenza vaccine Chronic hypoxemic respiratory failure (HCC) Chronic respiratory failure Primary hypertension Unspecified essential hypertension Chronic pain of left knee Chronic pain of left knee- Primary Menopause Symptomatic menopausal or female climacteric states COPD with acute exacerbation (HCC)- Primary Chronic hypoxemic respiratory failure (HCC) Chronic respiratory failure Primary hypertension Unspecified essential hypertension Acute non-recurrent frontal sinusitis Nasal congestion- Primary Other diseases of nasal cavity and sinuses Chronic obstructive pulmonary disease, unspecified COPD type (HCC)- Primary COPD exacerbation (HCC) Obstructive chronic bronchitis with exacerbation Chronic hypoxemic respiratory failure (HCC) Chronic respiratory failure Acute non-recurrent frontal sinusitis Weakness of both lower extremities Chronic obstructive pulmonary disease, unspecified COPD type (HCC) [facility] Diagnosis Moderate episode of recurrent major depressive disorder (HCC)- Primary Anxiety Anxiety state, unspecified Chronic obstructive pulmonary disease, unspecified COPD type (HCC) Primary hypertension Unspecified essential hypertension Chronic obstructive pulmonary disease, unspecified COPD type (HCC)- Primary Primary hypertension Unspecified essential hypertension Moderate episode of recurrent major depressive disorder (HCC) Anxiety Anxiety state, unspecified Chronic hypoxemic respiratory failure (HCC) Chronic respiratory failure Hepatic cyst- Primary Other specified disorders of liver Well female exam without gynecological exam- Primary Chronic obstructive pulmonary disease, unspecified COPD type (HCC) Primary hypertension Unspecified essential hypertension Mild episode of recurrent major depressive disorder (HCC) Anxiety Anxiety state, unspecified Hypertriglyceridemia Pure hyperglyceridemia Screening for diabetes mellitus Encounter for screening mammogram for malignant neoplasm of breast Type 2 diabetes mellitus without complication, without long-term current use of insulin ([facility]) (HCC)- Primary COPD exacerbation (HCC)- Primary Obstructive chronic bronchitis with exacerbation Chronic hypoxemic respiratory failure (HCC) Chronic respiratory failure Chronic hypoxemic respiratory failure (HCC)- Primary Chronic respiratory failure Chronic obstructive pulmonary disease, unspecified COPD type (HCC) Primary hypertension Unspecified essential hypertension Type 2 diabetes mellitus without complication, without long-term current use of insulin (CMS/HCC) (HCC) Hypertriglyceridemia Pure hyperglyceridemia Mild episode of recurrent major depressive disorder (HCC) Well female exam without gynecological exam- Primary Chronic obstructive pulmonary disease, unspecified COPD type (HCC) Chronic hypoxemic respiratory failure (HCC) Chronic respiratory failure Primary hypertension Unspecified essential hypertension Type 2 diabetes mellitus without complication, without long-term current use of insulin (CMS/HCC) (HCC) Hypertriglyceridemia Pure hyperglyceridemia Mild episode of recurrent major depressive disorder (HCC) Anxiety Anxiety state, unspecified Encounter for screening mammogram for malignant neoplasm of breast COPD with acute exacerbation (HCC)- Primary Swelling of left foot Dependent edema- Primary Edema Chronic hypoxemic respiratory failure (HCC) Chronic respiratory failure Chronic obstructive pulmonary disease, unspecified COPD type (HCC) Chronic obstructive pulmonary disease, unspecified COPD type (HCC)- Primary Chronic hypoxemic respiratory failure (HCC) Chronic respiratory failure Primary hypertension Unspecified essential hypertension Subcutaneous nodule of right forearm- Primary Chronic obstructive pulmonary disease, unspecified COPD type (HCC)- Primary Primary hypertension Unspecified essential hypertension Moderate episode of recurrent major depressive disorder (HCC) Type 2 diabetes mellitus without complication, without long-term current use of insulin (CMS/HCC) (HCC) Anxiety Anxiety state, unspecified Hypertriglyceridemia Pure hyperglyceridemia Primary osteoarthritis involving multiple joints Chronic obstructive pulmonary disease, unspecified COPD type (HCC)- Primary Refused influenza vaccine Chronic hypoxemic respiratory failure (HCC) Chronic respiratory failure Primary hypertension Unspecified essential hypertension Chronic pain of left knee Chronic pain of left knee- Primary Menopause Symptomatic menopausal or female climacteric states COPD with acute exacerbation (HCC)- Primary Chronic hypoxemic respiratory failure (HCC) Chronic respiratory failure Primary hypertension Unspecified essential hypertension Acute non-recurrent frontal sinusitis Nasal congestion- Primary Other diseases of nasal cavity and sinuses Chronic obstructive pulmonary disease, unspecified COPD type (HCC)- Primary COPD exacerbation (HCC) Obstructive chronic bronchitis with exacerbation Chronic hypoxemic respiratory failure (HCC) Chronic respiratory failure Acute non-recurrent frontal sinusitis Weakness of both lower extremities Routine general medical examination at health care facility- Primary Routine general medical examination at a health care facility Chronic obstructive pulmonary disease, unspecified COPD type (HCC) Moderate episode of recurrent major depressive disorder (HCC) Type 2 diabetes mellitus without complication, without long-term current use of insulin (CMS/HCC) (HCC) Chronic hypoxemic respiratory failure (HCC) Chronic respiratory failure Primary hypertension Unspecified essential hypertension Chronic pain of left knee Anxiety Anxiety state, unspecified Hypertriglyceridemia Pure hyperglyceridemia documented in [facility]* Diagnosis Moderate episode of recurrent major depressive disorder (HCC)- Primary Anxiety Anxiety state, unspecified Chronic obstructive pulmonary disease, unspecified COPD type (HCC) Primary hypertension Unspecified essential hypertension Chronic obstructive pulmonary disease, unspecified COPD type (HCC)- Primary Primary hypertension Unspecified essential hypertension Moderate episode of recurrent major depressive disorder (HCC) Anxiety Anxiety state, unspecified Chronic hypoxemic respiratory failure (HCC) Chronic respiratory failure Hepatic cyst- Primary Other specified disorders of liver Well female exam without gynecological exam- Primary Chronic obstructive pulmonary disease, unspecified COPD type (HCC) Primary hypertension Unspecified essential hypertension Mild episode of recurrent major depressive disorder (HCC) Anxiety Anxiety state, unspecified Hypertriglyceridemia Pure hyperglyceridemia Screening for diabetes mellitus Encounter for screening mammogram for malignant neoplasm of breast Type 2 diabetes mellitus without complication, without long-term current use of insulin (CMS/HCC) (HCC)- Primary COPD exacerbation (HCC)- Primary Obstructive chronic bronchitis with exacerbation Chronic hypoxemic respiratory failure (HCC) Chronic respiratory failure Chronic hypoxemic respiratory failure (HCC)- Primary Chronic respiratory failure Chronic obstructive pulmonary disease, unspecified COPD type (HCC) Primary hypertension Unspecified essential hypertension Type 2 diabetes mellitus without complication, without long-term current use of insulin (CMS/HCC) (HCC) Hypertriglyceridemia Pure hyperglyceridemia Mild episode of recurrent major depressive disorder (HCC) Well female exam without gynecological exam- Primary Chronic obstructive pulmonary disease, unspecified COPD type (HCC) Chronic hypoxemic respiratory failure (HCC) Chronic respiratory failure Primary hypertension Unspecified essential hypertension Type 2 diabetes mellitus without complication, without long-term current use of insulin (CMS/HCC) (HCC) Hypertriglyceridemia Pure hyperglyceridemia Mild episode of recurrent major depressive disorder (HCC) Anxiety Anxiety state, unspecified Encounter for screening mammogram for malignant neoplasm of breast COPD with acute exacerbation (HCC)- Primary Swelling of left foot Dependent edema- Primary Edema Chronic hypoxemic respiratory failure (HCC) Chronic respiratory failure Chronic obstructive pulmonary disease, unspecified COPD type (HCC) Chronic obstructive pulmonary disease, unspecified COPD type (HCC)- Primary Chronic hypoxemic respiratory failure (HCC) Chronic respiratory failure Primary hypertension Unspecified essential hypertension Subcutaneous nodule of right forearm- Primary Chronic obstructive pulmonary disease, unspecified COPD type (HCC)- Primary Primary hypertension Unspecified essential hypertension Moderate episode of recurrent major depressive disorder (HCC) Type 2 diabetes mellitus without complication, without long-term current use of insulin (CMS/[facility]) (HCC) Anxiety Anxiety state, unspecified Hypertriglyceridemia Pure hyperglyceridemia Primary osteoarthritis involving multiple joints Chronic obstructive pulmonary disease, unspecified COPD type (HCC)- Primary Refused influenza vaccine Chronic hypoxemic respiratory failure (HCC) Chronic respiratory failure Primary hypertension Unspecified essential hypertension Chronic pain of left knee Chronic pain of left knee- Primary Menopause Symptomatic menopausal or female climacteric states COPD with acute exacerbation (HCC)- Primary Chronic hypoxemic respiratory failure (HCC) Chronic respiratory failure Primary hypertension Unspecified essential hypertension Acute non-recurrent frontal sinusitis Nasal congestion- Primary Other diseases of nasal cavity and sinuses Chronic obstructive pulmonary disease, unspecified COPD type (HCC)- Primary COPD exacerbation (HCC) Obstructive chronic bronchitis with exacerbation Chronic hypoxemic respiratory failure (HCC) Chronic respiratory failure Acute non-recurrent frontal sinusitis Weakness of both lower extremities Routine general medical examination at health care facility- Primary Routine general medical examination at a health care facility Chronic obstructive pulmonary disease, unspecified COPD type (HCC) Moderate episode of recurrent major depressive disorder (HCC) Type 2 diabetes mellitus without complication, without long-term current use of insulin (CMS/[facility]) (HCC) Chronic hypoxemic respiratory failure (HCC) Chronic respiratory failure Primary hypertension Unspecified essential hypertension Chronic pain of left knee Anxiety Anxiety state, unspecified Hypertriglyceridemia Pure hyperglyceridemia Chronic pain of left knee- Primary Chronic obstructive pulmonary disease, unspecified COPD type (HCC) Chronic hypoxemic respiratory failure (HCC) Chronic respiratory failure Primary hypertension Unspecified essential hypertension [facility]* Diagnosis Moderate episode of recurrent major depressive disorder (HCC)- Primary Anxiety Anxiety state, unspecified Chronic obstructive pulmonary disease, unspecified COPD type (HCC) Primary hypertension Unspecified essential hypertension Chronic obstructive pulmonary disease, unspecified COPD type (HCC)- Primary Primary hypertension Unspecified essential hypertension Moderate episode of recurrent major depressive disorder (HCC) Anxiety Anxiety state, unspecified Chronic hypoxemic respiratory failure (HCC) Chronic respiratory failure Hepatic cyst- Primary Other specified disorders of liver Well female exam without gynecological exam- Primary Chronic obstructive pulmonary disease, unspecified COPD type (HCC) Primary hypertension Unspecified essential hypertension Mild episode of recurrent major depressive disorder (HCC) Anxiety Anxiety state, unspecified Hypertriglyceridemia Pure hyperglyceridemia Screening for diabetes mellitus Encounter for screening mammogram for malignant neoplasm of breast Type 2 diabetes mellitus without complication, without long-term current use of insulin (HCC)- Primary COPD exacerbation (HCC)- Primary Obstructive chronic bronchitis with exacerbation Chronic hypoxemic respiratory failure (HCC) Chronic respiratory failure Chronic hypoxemic respiratory failure (HCC)- Primary Chronic respiratory failure Chronic obstructive pulmonary disease, unspecified COPD type (HCC) Primary hypertension Unspecified essential hypertension Type 2 diabetes mellitus without complication, without long-term current use of insulin (HCC) Hypertriglyceridemia Pure hyperglyceridemia Mild episode of recurrent major depressive disorder (HCC) Well female exam without gynecological exam- Primary Chronic obstructive pulmonary disease, unspecified COPD type (HCC) Chronic hypoxemic respiratory failure (HCC) Chronic respiratory failure Primary hypertension Unspecified essential hypertension Type 2 diabetes mellitus without complication, without long-term current use of insulin (HCC) Hypertriglyceridemia Pure hyperglyceridemia Mild episode of recurrent major depressive disorder (HCC) Anxiety Anxiety state, unspecified Encounter for screening mammogram for malignant neoplasm of breast COPD with acute exacerbation (HCC)- Primary Swelling of left foot Dependent edema- Primary Edema Chronic hypoxemic respiratory failure (HCC) Chronic respiratory failure Chronic obstructive pulmonary disease, unspecified COPD type (HCC) Chronic obstructive pulmonary disease, unspecified COPD type (HCC)- Primary Chronic hypoxemic respiratory failure (HCC) Chronic respiratory failure Primary hypertension Unspecified essential hypertension Subcutaneous nodule of right forearm- Primary Chronic obstructive pulmonary disease, unspecified COPD type (HCC)- Primary Primary hypertension Unspecified essential hypertension Moderate episode of recurrent major depressive disorder (HCC) Type 2 diabetes mellitus without complication, without long-term current use of insulin (HCC) Anxiety Anxiety state, unspecified Hypertriglyceridemia Pure hyperglyceridemia Primary osteoarthritis involving multiple joints Chronic obstructive pulmonary disease, unspecified COPD type (HCC)- Primary Refused influenza vaccine Chronic hypoxemic respiratory failure (HCC) Chronic respiratory failure Primary hypertension Unspecified essential hypertension Chronic pain of left knee Chronic pain of left knee- Primary Menopause Symptomatic menopausal or female climacteric states COPD with acute exacerbation (HCC)- Primary Chronic hypoxemic respiratory failure (HCC) Chronic respiratory failure Primary hypertension Unspecified essential hypertension Acute non-recurrent frontal sinusitis Nasal congestion- Primary Other diseases of nasal cavity and sinuses Chronic obstructive pulmonary disease, unspecified COPD type (HCC)- Primary COPD exacerbation (HCC) Obstructive chronic bronchitis with exacerbation Chronic hypoxemic respiratory failure (HCC) Chronic respiratory failure Acute non-recurrent frontal sinusitis Weakness of both lower extremities Routine general medical examination at health care facility- Primary Routine general medical examination at a health care facility Chronic obstructive pulmonary disease, unspecified COPD type (HCC) Moderate episode of recurrent major depressive disorder (HCC) Type 2 diabetes mellitus without complication, without long-term current use of insulin (HCC) Chronic hypoxemic respiratory failure (HCC) Chronic respiratory failure Primary hypertension Unspecified essential hypertension Chronic pain of left knee Anxiety Anxiety state, unspecified Hypertriglyceridemia Pure hyperglyceridemia Chronic pain of left knee- Primary Chronic obstructive pulmonary disease, unspecified COPD type (HCC) Chronic hypoxemic respiratory failure (HCC) Chronic respiratory failure Primary hypertension Unspecified essential hypertension Chronic obstructive pulmonary disease, unspecified COPD type (HCC) [facility]* Diagnosis Moderate episode of recurrent major depressive disorder (HCC)- Primary Anxiety Anxiety state, unspecified Chronic obstructive pulmonary disease, unspecified COPD type (HCC) Primary hypertension Unspecified essential hypertension Chronic obstructive pulmonary disease, unspecified COPD type (HCC)- Primary Primary hypertension Unspecified essential hypertension Moderate episode of recurrent major depressive disorder (HCC) Anxiety Anxiety state, unspecified Chronic hypoxemic respiratory failure (HCC) Chronic respiratory failure Hepatic cyst- Primary Other specified disorders of liver Well female exam without gynecological exam- Primary Chronic obstructive pulmonary disease, unspecified COPD type (HCC) Primary hypertension Unspecified essential hypertension Mild episode of recurrent major depressive disorder (HCC) Anxiety Anxiety state, unspecified Hypertriglyceridemia Pure hyperglyceridemia Screening for diabetes mellitus Encounter for screening mammogram for malignant neoplasm of breast Type 2 diabetes mellitus without complication, without long-term current use of insulin (HCC)- Primary COPD exacerbation (HCC)- Primary Obstructive chronic bronchitis with exacerbation Chronic hypoxemic respiratory failure (HCC) Chronic respiratory failure Chronic hypoxemic respiratory failure (HCC)- Primary Chronic respiratory failure Chronic obstructive pulmonary disease, unspecified COPD type (HCC) Primary hypertension Unspecified essential hypertension Type 2 diabetes mellitus without complication, without long-term current use of insulin (HCC) Hypertriglyceridemia Pure hyperglyceridemia Mild episode of recurrent major depressive disorder (HCC) Well female exam without gynecological exam- Primary Chronic obstructive pulmonary disease, unspecified COPD type (HCC) Chronic hypoxemic respiratory failure (HCC) Chronic respiratory failure Primary hypertension Unspecified essential hypertension Type 2 diabetes mellitus without complication, without long-term current use of insulin (HCC) Hypertriglyceridemia Pure hyperglyceridemia Mild episode of recurrent major depressive disorder (HCC) Anxiety Anxiety state, unspecified Encounter for screening mammogram for malignant neoplasm of breast COPD with acute exacerbation (HCC)- Primary Swelling of left foot Dependent edema- Primary Edema Chronic hypoxemic respiratory failure (HCC) Chronic respiratory failure Chronic obstructive pulmonary disease, unspecified COPD type (HCC) Chronic obstructive pulmonary disease, unspecified COPD type (HCC)- Primary Chronic hypoxemic respiratory failure (HCC) Chronic respiratory failure Primary hypertension Unspecified essential hypertension Subcutaneous nodule of right forearm- Primary Chronic obstructive pulmonary disease, unspecified COPD type (HCC)- Primary Primary hypertension Unspecified essential hypertension Moderate episode of recurrent major depressive disorder (HCC) Type 2 diabetes mellitus without complication, without long-term current use of insulin (HCC) Anxiety Anxiety state, unspecified Hypertriglyceridemia Pure hyperglyceridemia Primary osteoarthritis involving multiple joints Chronic obstructive pulmonary disease, unspecified COPD type (HCC)- Primary Refused influenza vaccine Chronic hypoxemic respiratory failure (HCC) Chronic respiratory failure Primary hypertension Unspecified essential hypertension Chronic pain of left knee Chronic pain of left knee- Primary Menopause Symptomatic menopausal or female climacteric states COPD with acute exacerbation (HCC)- Primary Chronic hypoxemic respiratory failure (HCC) Chronic respiratory failure Primary hypertension Unspecified essential hypertension Acute non-recurrent frontal sinusitis Nasal congestion- Primary Other diseases of nasal cavity and sinuses Chronic obstructive pulmonary disease, unspecified COPD type (HCC)- Primary COPD exacerbation (HCC) Obstructive chronic bronchitis with exacerbation Chronic hypoxemic respiratory failure (HCC) Chronic respiratory failure Acute non-recurrent frontal sinusitis Weakness of both lower extremities Routine general medical examination at health care facility- Primary Routine general medical examination at a health care facility Chronic obstructive pulmonary disease, unspecified COPD type (HCC) Moderate episode of recurrent major depressive disorder (HCC) Type 2 diabetes mellitus without complication, without long-term current use of insulin (HCC) Chronic hypoxemic respiratory failure (HCC) Chronic respiratory failure Primary hypertension Unspecified essential hypertension Chronic pain of left knee Anxiety Anxiety state, unspecified Hypertriglyceridemia Pure hyperglyceridemia Chronic pain of left knee- Primary Chronic obstructive pulmonary disease, unspecified COPD type (HCC) Chronic hypoxemic respiratory failure (HCC) Chronic respiratory failure Primary hypertension Unspecified essential hypertension Chronic obstructive pulmonary disease, unspecified COPD type (HCC) [facility]* Diagnosis Moderate episode of recurrent major depressive disorder (HCC)- Primary Anxiety Anxiety state, unspecified Chronic obstructive pulmonary disease, unspecified COPD type (HCC) Primary hypertension Unspecified essential hypertension Chronic obstructive pulmonary disease, unspecified COPD type (HCC)- Primary Primary hypertension Unspecified essential hypertension Moderate episode of recurrent major depressive disorder (HCC) Anxiety Anxiety state, unspecified Chronic hypoxemic respiratory failure (HCC) Chronic respiratory failure Hepatic cyst- Primary Other specified disorders of liver Well female exam without gynecological exam- Primary Chronic obstructive pulmonary disease, unspecified COPD type (HCC) Primary hypertension Unspecified essential hypertension Mild episode of recurrent major depressive disorder (HCC) Anxiety Anxiety state, unspecified Hypertriglyceridemia Pure hyperglyceridemia Screening for diabetes mellitus Encounter for screening mammogram for malignant neoplasm of breast Type 2 diabetes mellitus without complication, without long-term current use of insulin (HCC)- Primary COPD exacerbation (HCC)- Primary Obstructive chronic bronchitis with exacerbation Chronic hypoxemic respiratory failure (HCC) Chronic respiratory failure Chronic hypoxemic respiratory failure (HCC)- Primary Chronic respiratory failure Chronic obstructive pulmonary disease, unspecified COPD type (HCC) Primary hypertension Unspecified essential hypertension Type 2 diabetes mellitus without complication, without long-term current use of insulin (HCC) Hypertriglyceridemia Pure hyperglyceridemia Mild episode of recurrent major depressive disorder (HCC) Well female exam without gynecological exam- Primary Chronic obstructive pulmonary disease, unspecified COPD type (HCC) Chronic hypoxemic respiratory failure (HCC) Chronic respiratory failure Primary hypertension Unspecified essential hypertension Type 2 diabetes mellitus without complication, without long-term current use of insulin (HCC) Hypertriglyceridemia Pure hyperglyceridemia Mild episode of recurrent major depressive disorder (HCC) Anxiety Anxiety state, unspecified Encounter for screening mammogram for malignant neoplasm of breast COPD with acute exacerbation (HCC)- Primary Swelling of left foot Dependent edema- Primary Edema Chronic hypoxemic respiratory failure (HCC) Chronic respiratory failure Chronic obstructive pulmonary disease, unspecified COPD type (HCC) Chronic obstructive pulmonary disease, unspecified COPD type (HCC)- Primary Chronic hypoxemic respiratory failure (HCC) Chronic respiratory failure Primary hypertension Unspecified essential hypertension Subcutaneous nodule of right forearm- Primary Chronic obstructive pulmonary disease, unspecified COPD type (HCC)- Primary Primary hypertension Unspecified essential hypertension Moderate episode of recurrent major depressive disorder (HCC) Type 2 diabetes mellitus without complication, without long-term current use of insulin (HCC) Anxiety Anxiety state, unspecified Hypertriglyceridemia Pure hyperglyceridemia Primary osteoarthritis involving multiple joints Chronic obstructive pulmonary disease, unspecified COPD type (HCC)- Primary Refused influenza vaccine Chronic hypoxemic respiratory failure (HCC) Chronic respiratory failure Primary hypertension Unspecified essential hypertension Chronic pain of left knee Chronic pain of left knee- Primary Menopause Symptomatic menopausal or female climacteric states COPD with acute exacerbation (HCC)- Primary Chronic hypoxemic respiratory failure (HCC) Chronic respiratory failure Primary hypertension Unspecified essential hypertension Acute non-recurrent frontal sinusitis Nasal congestion- Primary Other diseases of nasal cavity and sinuses Chronic obstructive pulmonary disease, unspecified COPD type (HCC)- Primary COPD exacerbation (HCC) Obstructive chronic bronchitis with exacerbation Chronic hypoxemic respiratory failure (HCC) Chronic respiratory failure Acute non-recurrent frontal sinusitis Weakness of both lower extremities Routine general medical examination at health care facility- Primary Routine general medical examination at a health care facility Chronic obstructive pulmonary disease, unspecified COPD type (HCC) Moderate episode of recurrent major depressive disorder (HCC) Type 2 diabetes mellitus without complication, without long-term current use of insulin (HCC) Chronic hypoxemic respiratory failure (HCC) Chronic respiratory failure Primary hypertension Unspecified essential hypertension Chronic pain of left knee Anxiety Anxiety state, unspecified Hypertriglyceridemia Pure hyperglyceridemia Chronic pain of left knee- Primary Chronic obstructive pulmonary disease, unspecified COPD type (HCC) Chronic hypoxemic respiratory failure (HCC) Chronic respiratory failure Primary hypertension Unspecified essential hypertension Chronic obstructive pulmonary disease, unspecified COPD type (HCC) [facility] Diagnosis Moderate episode of recurrent major depressive disorder (HCC)- Primary Anxiety Anxiety state, unspecified Chronic obstructive pulmonary disease, unspecified COPD type (HCC) Primary hypertension Unspecified essential hypertension Chronic obstructive pulmonary disease, unspecified COPD type (HCC)- Primary Primary hypertension Unspecified essential hypertension Moderate episode of recurrent major depressive disorder (HCC) Anxiety Anxiety state, unspecified Chronic hypoxemic respiratory failure (HCC) Chronic respiratory failure Hepatic cyst- Primary Other specified disorders of liver Well female exam without gynecological exam- Primary Chronic obstructive pulmonary disease, unspecified COPD type (HCC) Primary hypertension Unspecified essential hypertension Mild episode of recurrent major depressive disorder (HCC) Anxiety Anxiety state, unspecified Hypertriglyceridemia Pure hyperglyceridemia Screening for diabetes mellitus Encounter for screening mammogram for malignant neoplasm of breast Type 2 diabetes mellitus without complication, without long-term current use of insulin (HCC)- Primary COPD exacerbation (HCC)- Primary Obstructive chronic bronchitis with exacerbation Chronic hypoxemic respiratory failure (HCC) Chronic respiratory failure Chronic hypoxemic respiratory failure (HCC)- Primary Chronic respiratory failure Chronic obstructive pulmonary disease, unspecified COPD type (HCC) Primary hypertension Unspecified essential hypertension Type 2 diabetes mellitus without complication, without long-term current use of insulin (HCC) Hypertriglyceridemia Pure hyperglyceridemia Mild episode of recurrent major depressive disorder (HCC) Well female exam without gynecological exam- Primary Chronic obstructive pulmonary disease, unspecified COPD type (HCC) Chronic hypoxemic respiratory failure (HCC) Chronic respiratory failure Primary hypertension Unspecified essential hypertension Type 2 diabetes mellitus without complication, without long-term current use of insulin (HCC) Hypertriglyceridemia Pure hyperglyceridemia Mild episode of recurrent major depressive disorder (HCC) Anxiety Anxiety state, unspecified Encounter for screening mammogram for malignant neoplasm of breast COPD with acute exacerbation (HCC)- Primary Swelling of left foot Dependent edema- Primary Edema Chronic hypoxemic respiratory failure (HCC) Chronic respiratory failure Chronic obstructive pulmonary disease, unspecified COPD type (HCC) Chronic obstructive pulmonary disease, unspecified COPD type (HCC)- Primary Chronic hypoxemic respiratory failure (HCC) Chronic respiratory failure Primary hypertension Unspecified essential hypertension Subcutaneous nodule of right forearm- Primary Chronic obstructive pulmonary disease, unspecified COPD type (HCC)- Primary Primary hypertension Unspecified essential hypertension Moderate episode of recurrent major depressive disorder (HCC) Type 2 diabetes mellitus without complication, without long-term current use of insulin (HCC) Anxiety Anxiety state, unspecified Hypertriglyceridemia Pure hyperglyceridemia Primary osteoarthritis involving multiple joints Chronic obstructive pulmonary disease, unspecified COPD type (HCC)- Primary Refused influenza vaccine Chronic hypoxemic respiratory failure (HCC) Chronic respiratory failure Primary hypertension Unspecified essential hypertension Chronic pain of left knee Chronic pain of left knee- Primary Menopause Symptomatic menopausal or female climacteric states COPD with acute exacerbation (HCC)- Primary Chronic hypoxemic respiratory failure (HCC) Chronic respiratory failure Primary hypertension Unspecified essential hypertension Acute non-recurrent frontal sinusitis Nasal congestion- Primary Other diseases of nasal cavity and sinuses Chronic obstructive pulmonary disease, unspecified COPD type (HCC)- Primary COPD exacerbation (HCC) Obstructive chronic bronchitis with exacerbation Chronic hypoxemic respiratory failure (HCC) Chronic respiratory failure Acute non-recurrent frontal sinusitis Weakness of both lower extremities Routine general medical examination at health care facility- Primary Routine general medical examination at a health care facility Chronic obstructive pulmonary disease, unspecified COPD type (HCC) Moderate episode of recurrent major depressive disorder (HCC) Type 2 diabetes mellitus without complication, without long-term current use of insulin (HCC) Chronic hypoxemic respiratory failure (HCC) Chronic respiratory failure Primary hypertension Unspecified essential hypertension Chronic pain of left knee Anxiety Anxiety state, unspecified Hypertriglyceridemia Pure hyperglyceridemia Chronic pain of left knee- Primary Chronic obstructive pulmonary disease, unspecified COPD type (HCC) Chronic hypoxemic respiratory failure (HCC) Chronic respiratory failure Primary hypertension Unspecified essential hypertension Chronic obstructive pulmonary disease, unspecified COPD type (HCC)- Primary Chronic hypoxemic respiratory failure (HCC) Chronic respiratory failure Primary hypertension Unspecified essential hypertension Type 2 diabetes mellitus without complication, without long-term current use of insulin (HCC) Menopause Symptomatic menopausal or female climacteric states documented in this encounter [facility] Discharge Instructions * Instructions* Annabel Gill MD - 04/17/2019 Post-Operative Cataract Instructions You may take the patch and shield off and start taking eye drops 4 hours after leaving the hospital. Your vision will be blurry. Starting drops will accelerate your healing process. After using the eye drops, replace the metal or plastic eye shield over the operative eye using a single piece of take Do NOT reapply the cotton patch. ? PREDNISOLONE ACETATE 1%: Apply 1 drop to the surgical eye EVERY HOUR while awake. ? VIGAMOX: Apply 1 drop to the surgical eye EVERY 2 HOUR while awake. ? NEVANAC: Apply 1 drop to the surgical eye EVERY 2 HOUR while awake. Wait 5 minutes in between eye drops. The order does not matter. Continue taking the drops in thismanner until your appointment tomorrow. What to Expect at Home Your Recovery: After surgery, your eye will not hurt. But it may feel scratchy, sticky, or uncomfortable. It may also water more than usual. Most people see better 1 to 3 days after surgery. But it could take 3 to 10 weeks to get the full benefits of surgery and to see as clearly as possible. Your doctor may send you home with a bandage, patch, or clear shield on your eye. This will keep you from rubbing your eye. Your doctor will also give you eyedrops to help your eye heal. Use them exactly as directed. You can read or watch TV right away, but things may look blurry. Most people are able to return to work or their normal routine in 1 to 3 days. After your eye heals, you may still need to wear glasses, especially for reading. This care sheet gives you a general idea about how long it will take for you to recover. But each person recovers at a different pace. Follow the steps below to get better as quickly as possible. How can you care for yourself at home? Activity Rest when you feel tired. Getting enough sleep will help you recover. You may have trouble judging distances for a few days. Move slowly, and be careful going up and down stairs and pouring hot liquids. Ask for help if you need it. Ask your doctor when it is okay to drive. Wear your eye bandage, patch, or shield for as long as your doctor recommends. You may only need towear it when you sleep. You can shower or wash your hair the day after surgery. Keep water, soap, shampoo, hair spray, and shaving lotion out of your eye, especially for the first week. Do not rub or put pressure on your eye for at least 1 week. Do not wear eye makeup for 1 to 2 weeks. You may also want to avoid face cream or lotion. Do not get your hair colored or permed for 10 days after surgery. Do not bend over or do any strenuous activities, such as biking, jogging, weight lifting, or aerobic exercise, for 2 weeks or until your doctor says it is okay. Avoid swimming, hot tubs, gardening, and dusting for 1 to 2 weeks. Wear sunglasses on bright days for at least 1 year after surgery. Medicines Your doctor will tell you if and when you can restart your medicines. He or she will also give you instructions about taking any new medicines. If you take blood thinners, such as warfarin (Coumadin), clopidogrel (Plavix), or aspirin, be sure to talk to your doctor. He or she will tell you if and when to start taking those medicines again. Make sure that you understand exactly what your doctor wants you to do. Follow your doctor's instructions for when to use your eyedrops. Always wash your hands before you put your drops in. To put in eyedrops: -Tilt your head back, and pull your lower eyelid down with one finger. -Drop or squirt the medicine inside the lower lid. -Close your eye for 30 to 60 seconds to let the drops or ointment move around. -Do not touch the ointment or dropper tip to your eyelashes or any other surface. Follow your doctor's instructions for taking pain medicines. Follow-up care is a man part of your treatment and safety. Be sure to make and go to all appointments, and call your doctor if you are having problems. It's also a good idea to know your test results and keep a list of the medicines you take. When should you call for help? Call 911 anytime you think you may need emergency care. For example, call if: You passed out (lost consciousness). You have severe trouble breathing. You have sudden chest pain and shortness of breath, or you cough up blood. Call your doctor now or seek immediate medical care if: You have eye pain. You have pus draining from your eye. Your vision gets worse. Your eye is still red and bloodshot after 3 or 4 days. You notice new floaters, flashes of light, or changes in your field of vision. Watch closely for changes in your health, and be sure to contact your doctor if you have any problems. documented in this encounter* Instructions* Annabel Gill MD - 04/03/2019 Post-Operative Cataract Instructions You may take the patch and shield off and start taking eye drops 3 hours after leaving the hospital. Your vision will be blurry. Starting drops will accelerate your healing process. After using the eye drops, replace the metal or plastic eye shield over the operative eye using a single piece of take Do NOT reapply the cotton patch. ? PREDNISOLONE ACETATE 1%: Apply 1 drop to the surgical eye EVERY HOUR while awake. ? VIGAMOX: Apply 1 drop to the surgical eye EVERY 2 HOUR while awake. ? NEVANAC: Apply 1 drop to the surgical eye EVERY 2 HOUR while awake. Wait 5 minutes in between eye drops. The order does not matter. Continue taking the drops in thismanner until your appointment tomorrow. What to Expect at Home Your Recovery: After surgery, your eye will not hurt. But it may feel scratchy, sticky, or uncomfortable. It may also water more than usual. Most people see better 1 to 3 days after surgery. But it could take 3 to 10 weeks to get the full benefits of surgery and to see as clearly as possible. Your doctor may send you home with a bandage, patch, or clear shield on your eye. This will keep you from rubbing your eye. Your doctor will also give you eyedrops to help your eye heal. Use them exactly as directed. You can read or watch TV right away, but things may look blurry. Most people are able to return to work or their normal routine in 1 to 3 days. After your eye heals, you may still need to wear glasses, especially for reading. This care sheet gives you a general idea about how long it will take for you to recover. But each person recovers at a different pace. Follow the steps below to get better as quickly as possible. How can you care for yourself at home? Activity Rest when you feel tired. Getting enough sleep will help you recover. You may have trouble judging distances for a few days. Move slowly, and be careful going up and down stairs and pouring hot liquids. Ask for help if you need it. Ask your doctor when it is okay to drive. Wear your eye bandage, patch, or shield for as long as your doctor recommends. You may only need towear it when you sleep. You can shower or wash your hair the day after surgery. Keep water, soap, shampoo, hair spray, and shaving lotion out of your eye, especially for the first week. Do not rub or put pressure on your eye for at least 1 week. Do not wear eye makeup for 1 to 2 weeks. You may also want to avoid face cream or lotion. Do not get your hair colored or permed for 10 days after surgery. Do not bend over or do any strenuous activities, such as biking, jogging, weight lifting, or aerobic exercise, for 2 weeks or until your doctor says it is okay. Avoid swimming, hot tubs, gardening, and dusting for 1 to 2 weeks. Wear sunglasses on bright days for at least 1 year after surgery. Medicines Your doctor will tell you if and when you can restart your medicines. He or she will also give you instructions about taking any new medicines. If you take blood thinners, such as warfarin (Coumadin), clopidogrel (Plavix), or aspirin, be sure to talk to your doctor. He or she will tell you if and when to start taking those medicines again. Make sure that you understand exactly what your doctor wants you to do. Follow your doctor's instructions for when to use your eyedrops. Always wash your hands before you put your drops in. To put in eyedrops: -Tilt your head back, and pull your lower eyelid down with one finger. -Drop or squirt the medicine inside the lower lid. -Close your eye for 30 to 60 seconds to let the drops or ointment move around. -Do not touch the ointment or dropper tip to your eyelashes or any other surface. Follow your doctor's instructions for taking pain medicines. Follow-up care is a man part of your treatment and safety. Be sure to make and go to all appointments, and call your doctor if you are having problems. It's also a good idea to know your test results and keep a list of the medicines you take. When should you call for help? Call 911 anytime you think you may need emergency care. For example, call if: You passed out (lost consciousness). You have severe trouble breathing. You have sudden chest pain and shortness of breath, or you cough up blood. Call your doctor now or seek immediate medical care if: You have eye pain. You have pus draining from your eye. Your vision gets worse. Your eye is still red and bloodshot after 3 or 4 days. You notice new floaters, flashes of light, or changes in your field of vision. Watch closely for changes in your health, and be sure to contact your doctor if you have any problems. documented in this encounter History of Present Illness * Jozef Browning RN - 04/17/2019 8:[address] Garnica in to see pt. Pt dressed and up in chair. No distress. 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 documented in this encounter* Marian Dye RN - 04/03/2019 1:47 PM EDT PT AND FAMILY VERBALIZED UNDERSTANDING OF HOMEGOING INSTRUCTIONS, PT VERBALIZED A READINESS TO BE DISCHARGED HOME. PT DISCHARGED HOME VIA WHEELCHAIR ACCOMPANIED BY VOLUNTEER. PT HAS HAD ALL THEIR BELONGINGS RETURNED TO THEM AT DISCHARGE * Marian Dye RN - 04/03/2019 1:35 PM EDT PATIENT RECEIVED FROM OR VIA CART FAST TRACK TO PHASE II . ALERT SPONT RESP. WITH FENDER MECHANIC APPRENTICE IN ATTENDANCE * Kelly De Los Santos RN - 04/03/2019 11:48 AM EDT Arrived to [facility] with her niece, Ellie, , for surgery today with Dr. Gill on her right eye. Reviewed things for a better recovery. Niece to return 30 mins. After she goes to surgery. documented in this encounter Assessments Diagnosis Combined forms of age-related cataract of left eye Other and combined forms of senile cataract Diagnosis Combined forms of age-related cataract of right eye Other and combined forms of senile cataract Advance Directives No Advanced Directives Records FoundDocuments on File Type Date Recorded Patient Manager Employee Relations Expl anation Advance Directives and Living Will Power of Farrowing Manager Latest Code Status on File Code Status Date Activated Date Inactivated Comments Full Code 04/17/2019 6:14 AM Full Code 04/03/2019 10:59 AM 04/03/2019 3:48 PM Full Code 02/22/2017 12:38 AM 02/25/2017 8:07 PM Latest Code Status on File Code Status Date Activated Date Inactivated Comments Full Code 04/03/2019 10:59 AM Documents on File Type Date Recorded Patient Manager Employee Relations Expl anation ACP-Advance Directive ACP-Power of Farrowing Manager Latest Code Status on File Code Status Date Activated Date Inactivated Comments Full Code 11/25/2020 10:29 AM Full Code 04/17/2019 6:14 AM 04/17/2019 10:59 AM Latest Code Status on File Code Status Date Activated Date Inactivated Comments Full Code 12/30/2020 1:12 PM Full Code 11/25/2020 10:29 AM 11/25/2020 2:02 PM Latest Code Status on File Code Status Date Activated Date Inactivated Comments Full Code 12/30/2020 1:12 PM 12/30/2020 5:54 PM Latest Code Status on File Code Status Date Activated Date Inactivated Comments Full Code 04/17/2019 6:14 AM 04/17/2019 10:59 AM Advance Directive Response Recorded Date/ Time Living Will No September 19, 2021 3:13pm Power of Farrowing Manager No September 19 3:13pm Advance Directive Response Recorded Date/ Time Living Will No September 19, 2021 2:13pm Power of Farrowing Manager No September 19 2:13pm Advance Directive Response Recorded Date/ Time Living Will No January 21 8:55am Power of Farrowing Manager No January 21 8:55am Advance Directive Response Recorded Date/ Time Living Will No January 21 12:02pm Power of Farrowing Manager No January 21 2 023 12:02pm Latest Code Status on File Code Status Date Activated Date Inactivated Comments Full Code 10/31/2023 7:27 PM Latest Code Status on File Code Status Date Activated Date Inactivated Comments Full Code 10/31/2023 7:27 PM 11/10/2023 4:13 PM Date Activated Date Inactivated Comments 10/31/2023 7:27 PM 11/10/2023 4:13 PM Date Activated Date Inactivated Comments 10/31/2023 7:27 PM 11/10/2023 4:13 PM Summary Purpose Family History No Family History Records Found Relationship Condition Age at Onset Recorded Date/T juliana Not Specified Cardiac disease Unknown Relationship Condition Age at Onset Recorded Date/T juliana Not Specified Cardiac disease Unknown Malignant neoplasm Unknown Chief Complaint and Reason for Visit Chief Complaint HX SMOKING Chief Complaint HX SMOKING Pre-Surgical Testing Chief Complaint COUGH Chief Complaint Cough Bronchiectasis, uncomplicated Chief Complaint COPD EXACERBATION Reason for Visit Acute hypoxemic resp iratory failure Acute exacerbation of chronic obstructive pulmonary disease (COPD) Chief Complaint COPD EXACERBATION COPD EXACERBATION Reason for Visit Acute hypoxemic resp iratory failure Acute exacerbation of chronic obstructive pulmonary disease (COPD) Reason for Referral Specialty Diagnoses / Procedures Referred By Sheila rossi Referred To Contact Diagnoses Chronic pain of left knee Vu Mullins MD [address] [place] [id number] Referral ID Status Reason Start Date Expiration Date V isits Requested Visits Authorized [id number] Pending Review 03/17/2024 03/12/2025 1 1 Specialty Diagnoses / Procedures Referred By Contac t Referred To Contact Orthopedic Surgery / Orthopaedic Surgery Diagnoses Chronic pain of left knee Procedures Large Joint Injection/Arthrocentes is Vu Mullins MD [address] [place] [id number] Referral ID Status Reason Start Date Expiration Date Visits Re quested Visits Authorized [id number] Closed 03/17/2024 03/12/2025 1 1 Additional Source Comments Scheduled Active and Recently Administ ered Medications (unrecognized section and content) Medication Order 11/23/2020 11/24/2020 11/25/2020 apraclonidine (IOPIDINE) 1 % ophthalmic solution 1 drop 1 drop, Ophthalmic, SEE ADMIN INSTRUCTIONS, Starting on Wed11/25/20 at 1029, Into the operative eye after the procedure, Post-op 1113 (Given - Provid er: Wale Hsu RN) balanced salts plus (BSS) ophthalmic solution (COMPLETED) Ophthalmic, ONCE, On Wed11/25/20 at 1045, For 1 dose, Post-op 1113 (Given - Provid er: Wale Hsu RN) phenylephrine (MYDFRIN) 2.5 % ophthalmic solution 1 drop 1 drop, Ophthalmic, SEE ADMIN INSTRUCTIONS, Starting on Wed11/25/20 at 1029, Into the operative eye(s) every 5 minutes X2 doses starting 30 minutes prior to surgery, Pre-op (day of surgery) 1038 (Given - Provid er: Kelly De Los Santos RN)1056 (Given - Provider: Kelly De Los Santos RN) prednisoLONE acetate (PRED FORTE) 1 % ophthalmic suspension 1 drop 1 drop, Ophthalmic, SEE ADMIN INSTRUCTIONS, Starting on Wed11/25/20 at 1029, To the operative eye after the procedure and to be dispensed to the patient for post-operative use, Post-op 1115 (Given - Provid er: Wale Hsu RN) tetracaine (TETRAVISC) 0.5 % ophthalmic solution 1 drop 1 drop, Ophthalmic, SEE ADMIN INSTRUCTIONS, Starting on Wed11/25/20 at 1029, Into the operative eye(s) every 5 minutes X2 doses starting 30 minutes prior to surgery and immediately prior to procedure, Pre-op (day of surgery) 1038 (Given - Provid er: Kelly De Los Santos RN)1056 (Given - Provider: Kelly De Los Santos RN)1111 (Given - Provider: Kelly De Los Santos RN) tropicamide (MYDRIACYL) 1 % ophthalmic solution 1 drop 1 drop, Ophthalmic, SEE ADMIN INSTRUCTIONS, Starting on Wed11/25/20 at 1029, Into the operative eye(s) every 5 minutes X2 doses starting 30 minutes prior to surgery, Pre-op (day of surgery) 1038 (Given - Provid er: Kelly De Los Santos RN)1056 (Given - Provider: Kelly De Los Santos RN) No Frequency Medication Order 11/23/2020 11/24/2020 11/25/2020 hydroxypropyl methylcellulose (GONIOSOL) 2.5 % ophthalmic solution Starting on Wed11/25/20 at 1032, For 1 dose, KELLY DE LOS SANTOS: fletcher override 1045 (Due) Scheduled Medication Order 12/28/2020 12/29/2020 12/30/2020 apraclonidine (IOPIDINE) 1 % ophthalmic solution 1 drop 1 drop, Left Eye, SEE ADMIN INSTRUCTIONS, Starting on Wed12/30/20 at 1312, Into the operative eye AFTER THE PROCEDURE., Pre-op (day of surgery) 1422 (Given by Other - Provider: Kelly De Los Santos RN) balanced salts plus (BSS) ophthalmic solution (COMPLETED) Ophthalmic, ONCE, On Wed12/30/20 at 1330, For 1 dose, Post-op 142 (Given by Other - Provider: Kelly De Los Santos RN) phenylephrine (MYDFRIN) 2.5 % ophthalmic solution 1 drop 1 drop, Left Eye, SEE ADMIN INSTRUCTIONS, Starting on Wed12/30/20 at 1312, To operative eye(s) for 2 doses, starting 30 minutes prior to surgery, Pre-op (day of surgery) 1325 (Given - Provid er: Wale Hsu RN)1332 (Given - Provider: Wale Hsu RN) prednisoLONE acetate (PRED FORTE) 1 % ophthalmic suspension 1 drop 1 drop, Left Eye, SEE ADMIN INSTRUCTIONS, Starting on Wed12/30/20 at 1312, Into the operative eye AFTER procedure and to be dispensed to patient for home use. Shake well before use., Pre-op (day of surgery) 1422 (Given by Other - Provider: Kelly De Los Santos RN) tetracaine (TETRAVISC) 0.5 % ophthalmic solution 1 drop 1 drop, Left Eye, SEE ADMIN INSTRUCTIONS, Starting on Wed12/30/20 at 1312, Into the operative eye(s) every 5 minutes for 2 doses starting 30 minutes prior to surgery AND IMMEDIATELY PRIOR TO THE PROCEDURE., Pre-op (day of surgery) 1325 (Given - Provid er: Wale Hsu RN)1331 (Given - Provider: Wale Hsu RN)1418 (Given - Provider: Ksenia Teran RN) tropicamide (MYDRIACYL) 1 % ophthalmic solution 1 drop 1 drop, Left Eye, SEE ADMIN INSTRUCTIONS, Starting on Wed12/30/20 at 1312, To operative eye(s) for 2 doses, starting 30 minutes prior to surgery, Pre-op (day of surgery) 1325 (Given - Provid er: Wale Hsu RN)1331 (Given - Provider: Wale Hsu RN) Scheduled Medication Order 11/08/2023 11/09/2023 11/10/2023 budesonide (Pulmicort) 0.5 MG/2ML nebulizer solution 0.5 mg 0.5 mg, Nebulization, 2 times daily, First dose on Wed11/05/23 at 0830, Rinse mouth with water after use to reduce aftertaste and incidence of candidiasis. Do not swallow. 0757 (Given - Provider: Shyanne Lei RCP)2008 (Given - Provider: Lupillo Lutz, ASTER) 0845 (Given - Provider: Jim Villafana RCP)195 (Given - Provider: Isai Mcgraw RCP) 0829 (Given - Provider: Gentry Garcia RCP) enoxaparin (Lovenox) syringe 40 mg 40 mg, SubCUTAneous, Every 24 hours scheduled (Daily), First dose on Wed10/31/23 at 1930, Indication of Use: Prophylaxis-DVT/PE, Indications: Prophylaxis of Venous Thromboembolism 0938 (Given - Provider: Shyanne Chang RN) 0810 (Given - Provider: Deb Johnston RN) 0903 (Given - Provider: Deb Johnston RN) guaiFENesin (Mucinex) 12 hr tablet 600 mg 600 mg, Oral, 2 times daily, First dose on Wed11/09/23 at 1030, Administer with plenty of fluids to ensure proper action. Do not crush, chew, or split. 1206 (Given - Provider: Deb Johnston, JEWELS)2010 (Given - Provider: Vivek Nicole RN) 0904 (Given - Provider: Deb Johnston RN) ipratropium-albuterol (Duo-Neb) 0.5-2.5 mg/3 mL nebulizer solution 3 mL 3 mL, Nebulization, 4 times daily, First dose (after last modification) on Wed11/03/23 at 2000 0756 (Given - Provider: Shyanne Lei RCP)1349 (Given - Provider: Shyanne Lei [facility])1636 (Given - Provider: Shyanne Lei [facility])2009 (Given - Provider: Lupillo Lutz, ASTER) 0845 (Given - Provider: Jim Villafana [facility])1256 (Given - Provider: Jim Villafana [facility])1738 (Given - Provider: Shyanne Lei [facility])1954 (Given - Provider: Isai Mcgraw [facility]) 0821 (Given - Provider: Gentry Garcia [facility])1140 (Given - Provider: Gentry Garcia [facility])1600 (Canceled Entry - Provider: Automatic Discharge Provider - Comment: Automatically canceled at discontinue of medication order) Lidocaine 4 % patch 1 patch 1 patch, TransDERmal, Administer over 12 Hours, Daily, First dose on Wed11/09/23 at 1030, Apply patch to right ribs. Patch may remain in place for up to 12 hours in any 24 hour period. 1206 (Medication Applied - Provider: Deb Johnston RN - Comment: right ribs per order) 0006 (Medication Removed - Provider: Vivek Nicole RN)0903 (Medication Applied - Provider: Deb Johnston RN - Comment: right ribs per order)1413 (Due: Medication Removed - Provider: Automatic Discharge Provider - Comment: Time automatically adjusted from order being discontinued) lisinopril tablet 20 mg 20 mg, Oral, Daily, First dose (after last modification) on Wed11/08/23 at 0900 0938 (Given - Provider: Shyanne Chang RN) 0810 (Given - Provider: Deb Johnston RN) 0904 (Given - Provider: eDb Johnston RN) melatonin tablet 5 mg 5 mg, Oral, Nightly, First dose on Wed10/31/23 at 2100 2056 (Given - Provider: Nhi Green RN) 2009 (Given - Provider: Vivek Nicole RN) pantoprazole (ProtoNix) 40 mg in sodium chloride (PF) 0.9 % 10 mL injection(Linked Group 1) 40 mg, IntraVENous, Administer over 2 Minutes, Nightly, First dose on Wed11/01/23 at 2100, Give only if unable to tolerate po. 2056 (See Alternative - Provider: Nhi Green RN) 2009 (See Alternative - Provider: Vivek Nicole, RN) pantoprazole (ProtoNix) EC tablet 40 mg(Linked Group 1) 40 mg, Oral, Nightly, First dose on Wed11/01/23 at 2100, Do not crush, chew, or split. 2056 (Given - Provider: Nhi Green RN) 2009 (Given - Provider: Vivek Nicole, RN) predniSONE (Deltasone) tablet 10 mg(Linked Group 2) 10 mg, Oral, Daily, First dose on Wed11/12/23 at 0900, For 3 days predniSONE (Deltasone) tablet 20 mg(Linked Group 2) 20 mg, Oral, Daily, First dose on Wed11/09/23 at 0900, For 3 days 0810 (Given - Provider: Deb Johnston RN) 0904 (Given - Provider: Deb Johnston RN) predniSONE (Deltasone) tablet 30 mg (COMPLETED) 30 mg, Oral, Daily, First dose on Wed11/04/23 at 1415, For 5 doses 0938 (Given - Provider: Shyanne Chang RN) sennosides (Senokot) tablet 8.6 mg 8.6 mg (1 tablet), Oral, Nightly, First dose on Wed11/01/23 at 2100 2056 (Given - Provider: Nhi Green RN) 2009 (Given - Provider: Vivek Nicole, RN) sertraline (Zoloft) tablet 100 mg 100 mg, Oral, Daily, First dose on Wed11/01/23 at 1145 0938 (Given - Provider: Shyanne Chang RN) 0810 (Given - Provider: Deb Johnston RN) 0904 (Given - Provider: Deb Johnston RN) sodium chloride 3 % hypertonic nebulizer solution 4 mL 4 mL, Nebulization, 2 times daily, First dose on Wed11/07/23 at 1300 0756 (Given - Provider: Shyanne Lei RCP)2008 (Given - Provider: Lupillo Lutz, CLERK RATING) 0845 (Given - Provider: Jim Villafana RCP)2099 (Canceled Entry - Provider: Automatic Discharge Provider - Comment: Automatically canceled at discontinue of medication order) 0831 (Given - Provider: Gentry Garcia RCP) PRN Medication Order 11/08/2023 11/09/2023 11/10/2023 acetaminophen (Tylenol) tablet 1,000 mg 1,000 mg, Oral, Every 8 hours PRN, mild pain (1-3), Starting on Wed11/02/23 at 1545, Maximum dose of acetaminophen is 4000 mg from all sources in 24 hours. 2056 (Given - Provider: Vivek Nicole RN) albuterol (2.5 MG/3ML) 0.083% nebulizer solution 2.5 mg 2.5 mg, Nebulization, Every 2 hour PRN, wheezing, Starting on Wed10/31/23 at 1925, Initiate RT Bronchodilator Protocol: albuterol 108 (90 Base) MCG/ACT inhaler 2 puff 2 puff, Inhalation, Every 4 hours PRN, wheezing, shortness of breath, Starting on Wed11/08/23 at 2216 bisacodyl (Dulcolax) EC tablet 5 mg 5 mg, Oral, Daily PRN, constipation, Starting on Wed11/01/23 at 1849, Do not give within 1 hour of antacids, milk, or dairy products. Do not crush, chew, or split. ondansetron (Zofran) injection 4 mg(Linked Group 3) 4 mg, IntraVENous, Every 6 hours PRN, nausea, vomiting, Starting on Wed10/31/23 at 1922, 1st Line. Give IV if patient is unable to take orally. If inadequate response within 60 minutes, proceed to next-line agent or contact provider if no further options ordered. ondansetron ODT (Zofran-ODT) disintegrating tablet 4 mg(Linked Group 3) 4 mg, Oral, Every 8 hours PRN, nausea, vomiting, Starting on Wed10/31/23 at 1922, 1st Line. If inadequate response within 60 minutes, proceed to next-line agent or contact provider if no further options ordered. Patient should allow tablet to dissolve on tongue. Do not remove from blister pack until just before administering. sodium chloride (Mclean) 0.65 % nasal spray 1 spray 1 spray, Each Nostril, PRN, congestion, Starting on Wed11/01/23 at 1749 Linked Groups Order Group 1: pantoprazole (ProtoNix) EC tablet 40 mgJump to med 40 mg, Oral, Nightly, First dose on Wed11/01/23 at 2100, Do not crush, chew, or split. Or pantoprazole (ProtoNix) 40 mg in sodium chloride (PF) 0.9 % 10 mL injectionJump to med 40 mg, IntraVENous, Administer over 2 Minutes, Nightly, First dose on Wed11/01/23 at 2100, Give only if unable to tolerate po. Group 2: predniSONE (Deltasone) tablet 20 mgJump to med 20 mg, Oral, Daily, First dose on Wed11/09/23 at 0900, For 3 days Followed by predniSONE (Deltasone) tablet 10 mgJump to med 10 mg, Oral, Daily, First dose on Wed11/12/23 at 0900, For 3 days Group 3: ondansetron ODT (Zofran-ODT) disintegrating tablet 4 mgJump to med 4 mg, Oral, Every 8 hours PRN, nausea, vomiting, Starting on 10/31/23 at 1922, 1st Line. If inadequate response within 60 minutes, proceed to next-line agent or contact provider if no further options ordered. Patient should allow tablet to dissolve on tongue. Do not remove from blister pack until just before administering. Or ondansetron (Zofran) injection 4 mgJump to med 4 mg, IntraVENous, Every 6 hours PRN, nausea, vomiting, Starting on 10/31/23 at 1922, 1st Line. Give IV if patient is unable to take orally. If inadequate response within 60 minutes, proceed to next-line agent or contact provider if no further options ordered. Care Teams (unrecognized sec tion and content) Sandwich Counter Attendant Relationship Specialty Start Date End Date Vu Mullins MD [address] [place] [id number] PCP - General Family Medicine 06/28/15 Sandwich Counter Attendant Relationship Specialty Start Date End Date Vu Mullins MD [address] [place], [place] [address], [place] [id number] PCP - General 06/28/15 Sandwich Counter Attendant Relationship Specialty Start Date End Date Vu Mullins MD [address] [place], [place] [address], [place] [id number] PCP - General 06/28/15 Sandwich Counter Attendant Relationship Specialty Start Date [place] [address] PCP - General 06/28/15 Sandwich Counter Attendant Relationship Specialty Start Date [place] [address] PCP - General 06/28/15 Team Status: Active Member Role Status Dates Dr. Vu Mullins MD Family Provider Active Dr. Vu Mullins MD Primary Care Provider Active Team Status: Active Member Role Status Dates Dr. Vu Mullins MD Primary Care Provider Active Dr. Michael Frost MD Emergency Provider Active Dr. Wale Villanueva MD Admit Provider, Attending Provider Active Sandwich Counter Attendant Relationship Specialty Start Date End Date Vu Mullins MD [address] [place] [address] PCP - General 06/28/15 Team Status: Active Member Role Status Dates Dr. Vu Mullins MD Primary Care Provider Active Dr. Michael Frost MD Emergency Provider Active Dr. Wale Villanueva MD Admit Provi damian, Attending Provider, Other Provider Active Team Status: Inactive Member Role Status Dates Dr. Vu Mullins MD Primary Care Provider Active Dr. Michael Frost MD Emergency Provider Active Dr. Wale Villanueva MD Admit Provider, Attending Provider Active Sandwich Counter Attendant Relationship Specialty Start Date End Date Vu Mullins MD [address] [place] [id number] PCP General 06/28/15 Sandwich Counter Attendant Relationship Specialty Start Date End Date Vu Mullins MD [address] [place] [id number] PCP - General 06/28/15 Sandwich Counter Attendant Relationship Specialty Start Date End Date Vu Mullins MD [address] [place] [address] PCP - General 06/28/15 Sandwich Counter Attendant Relationship Specialty Start Date End Date Vu Mullins MD [facility] [place] [address] PCP - General 06/28/15 Sandwich Counter Attendant Relationship Specialty Start Date End Date Vu Mullins MD [address] [facility] [place] [address] PCP - General 06/28/15 Sandwich Counter Attendant Relationship Specialty Start Date End Date uV Mullins MD [address] [facility] [place] [address] PCP - General 06/28/15 Sandwich Counter Attendant Relationship Specialty Start Date End Date Vu Mullins MD [address] [facility] [place] [address] PCP - General 06/28/15 Sandwich Counter Attendant Relationship Specialty Start Date End Date Vu Mullins MD [address] [facility] [place] [address] PCP - General 06/28/15 Sandwich Counter Attendant Relationship Specialty Start Date End Date Vu Mullins MD [address] [facility] [place] [address] PCP - General 06/28/15 Sandwich Counter Attendant Relationship Specialty Start Date End Date Vu Mullins MD [address] [place] [address] PCP - General 06/28/15 Sandwich Counter Attendant Relationship Specialty Start Date End Date Vu Mullins MD [address] [place] [address] PCP - General 06/28/15 Sandwich Counter Attendant Relationship Specialty Start Date End Date Vu Mullins MD [address] [place] [address] PCP - General 06/28/15 Sandwich Counter Attendant Relationship Specialty Start Date End Date Vu Mullins MD [address] [place] [address] PCP - General 06/28/15 Sandwich Counter Attendant Relationship Specialty Start Date End Date Vu Mullins MD [address] [facility] [place] [address] PCP - General 06/28/15 Sandwich Counter Attendant Relationship Specialty Start Date End Date Vu Mullins MD [address] [facility] [place] [address] PCP - General 06/28/15 Sandwich Counter Attendant Relationship Specialty Start Date End Date Vu Mullins MD [address] [facility] [place] [address] PCP - General 06/28/15 Sandwich Counter Attendant Relationship Specialty Start Date End Date Vu Mullins MD [address] [place] [address] PCP - General 06/28/15 Lita Rossi, biofuels operations managerGifts Officer Churn Driller 11/18/23 Sandwich Counter Attendant Relationship Specialty Start Date End Date Vu Mullins MD [address] [place] [address] PCP - General 06/28/15 Lita Rossi biofuels operations managerGifts Officer Churn Driller 11/18/23 Sandwich Counter Attendant Relationship Specialty Start Date End Date Vu Mullins MD [address] [place] [address] PCP - General 06/28/15 Lita Rossi biofuels operations managerGifts Officer Churn Driller 11/18/23 Sandwich Counter Attendant Relationship Specialty Start Date End Date Vu Mullins MD [address] [place] [address] PCP - General 06/28/15 Lita Rossi biofuels operations managerGifts Officer Churn Driller 11/18/23 Sandwich Counter Attendant Relationship Specialty Start Date End Date Vu Mullins MD [address] [place] [address] PCP - General 06/28/15 Lita Rossi biofuels operations managerGifts Officer Churn Driller 11/18/23 Sandwich Counter Attendant Relationship Specialty Start Date End Date Vu Mullins MD [address] [place] [address] PCP - General 06/28/15 Lita Rossi, biofuels operations managerGifts Officer Churn Driller 11/18/23 Sandwich Counter Attendant Relationship Specialty Start Date End Date Vu Mullins MD [address] [place] [address] PCP - General 06/28/15 Lita Rossi, biofuels operations managerGifts Officer Churn Driller 11/18/23 Sandwich Counter Attendant Relationship Specialty Start Date End Date Vu Mullins MD [address] [place] [address] PCP - General 06/28/15 Lita Rossi biofuels operations managerGifts Officer Churn Driller 11/18/23 Sandwich Counter Attendant Relationship Specialty Start Date End Date Vu Mullins MD [address] [place] [address] PCP - General 06/28/15 Lita Rossi RN Care Gifts Officer Churn Driller 11/18/23 Sandwich Counter Attendant Relationship Specialty Start Date End Date Vu Mullins MD [address] [place] [address] PCP - General 06/28/15 Lita Rossi biofuels operations managerGifts Officer Churn Driller 11/18/23 Sandwich Counter Attendant Relationship Specialty Start Date End Date Vu Mullins MD [address] [place] [address] PCP - General 06/28/15 Lita Rossi biofuels operations managerGifts Officer Churn Driller 11/18/23 Sandwich Counter Attendant Relationship Specialty Start Date End Date Vu Mullins MD [address] [place] [address] PCP - General 06/28/15 Lita Rossi biofuels operations managerGifts Officer Churn Driller 11/18/23 Sandwich Counter Attendant Relationship Specialty Start Date End Date Vu Mullins MD [address] [place] [address] PCP - General 06/28/15 Lita Rossi, biofuels operations managerGifts Officer Churn Driller 11/18/23 Sandwich Counter Attendant Relationship Specialty Start Date End Date Vu Mullins MD [address] [facility] [place] [address] PCP - General 06/28/15 Sandwich Counter Attendant Relationship Specialty Start Date End Date Vu Mullins MD [address] [facility] [place] [address] PCP - General 06/28/15 Sandwich Counter Attendant Relationship Specialty Start Date End Date Vu Mullins MD [address] [facility] [place] [address] PCP - General 06/28/15 Sandwich Counter Attendant Relationship Specialty Start Date End Date Vu Mullins MD [address] [facility] [place] [address] PCP - General 06/28/15 Sandwich Counter Attendant Relationship Specialty Start Date End Date Vu Mullins MD [address] [place] [address] PCP - General 06/28/15 Sandwich Counter Attendant Relationship Specialty Start Date End Date Vu Mullins MD [address] [place] [address] PCP - General 06/28/15 Lita Rossi, biofuels operations managerGifts Officer Churn Driller 11/18/23 Sandwich Counter Attendant Relationship Specialty Start Date End Date Vu Mullins MD [address] [facility] [place] [address] PCP - General 06/28/15 Lita Rossi, biofuels operations managerGifts Officer Churn Driller 11/18/23 Sandwich Counter Attendant Relationship Specialty Start Date End Date Vu Mullins MD [address] [place] [address] PCP - General 06/28/15 Lita Rossi, biofuels operations managerGifts Officer Churn Driller 11/18/23 Sandwich Counter Attendant Relationship Specialty Start Date End Date Vu Mullins MD [address] [place] [address] PCP - General 06/28/15 Lita Rossi, biofuels operations managerGifts Officer Churn Driller 11/18/23 Sandwich Counter Attendant Relationship Specialty Start Date End Date Vu Mullins MD [address] [place] [address] PCP - General 06/28/15 Lita Rossi biofuels operations managerGifts Officer Churn Driller 11/18/23 Sandwich Counter Attendant Relationship Specialty Start Date End Date Vu Mullins MD [address] [place] [address] PCP - General 06/28/15 Sandwich Counter Attendant Relationship Specialty Start Date End Date Vu Mullins MD [address] [place] [address] PCP - General 06/28/15 Sandwich Counter Attendant Relationship Specialty Start Date End Date Vu Mullins MD [address] [place] [address] PCP - General 06/28/15 Sandwich Counter Attendant Relationship Specialty Start Date End Date Vu Mullins MD [address] [place] [address] PCP - General 06/28/15 Sandwich Counter Attendant Relationship Specialty Start Date End Date Vu Mullins MD [address] [place] [id number] PCP - General 06/28/15 INFORMATION SOURCE (unrecogn ized section and content) DATE CREATED AUTHOR 08/07/2021 [facility] DATE CREATED AUTHOR AUTHOR'S ORGANIZ ATION 02/22/2025 [facility] DATE CREATED AUTHOR AUTHOR'S ORGANIZ ATION 02/23/2025 [facility] Goals (unrecognized section and content) Goals may be documented in a n alternate sectionGoals may be documented in an alternate sectionGoals may be documented in an alternate sectionGoals may be documented in an alternate sectionGoals may be documented in an alternate sectionGoals may be documented in an alternate sectionGoals may be documented in an alternate section Reason for Visit (unrecogniz ed section and content) Reason Onset Date Comments Cough 09/02/2022 Reason Onset Date Comments Med Refill 09/07/2022 Reason Onset Date Comments Med Refill 11/02/2022 Reason Comments Med Refill Reason Comments Nasal Congestion Onset a few days ago , denies fever/chills, denies sore throat/body aches/headache Reason Comments Hyperlipidemia Hypertension Diabetes Anxiety Depression Medication Check 6 monthHas questions about a couple of medications Hospital Follow-up [facility] 01/21-01/22/23 Health Maintenance Hiv/hep c screening- refuseMmr vaccine- done as childDm eye exam- sees one in [place] a or b vaccine- refuseMammogram- pt has order will call to sched Shingles vaccine- refuseCovid 3 vaccine- refuse Reason Comments Gynecologic Exam [facility] no pap had hyst Blood Work Health Maintenance Eye exam- [facility] nter JuliadsDental exam- not done pt will schedRsv vaccine- not donePcv 20 vaccine- refuseFlu vaccine- [id number] covid vaccine- not done Medication Problem Pt is wondering abou t taking 2 xanax instead of one sometimes - I am not seeing this med on her list Reason Onset Date Comments Labs Only 07/26/2023 Reason Comments Chest Congestion Sinus Problem States sx are ongoin g and make breathing difficult, c/o sinus pain and pressure, denies fever Reason Comments Sinus Problem COPD Cough Reason Comments Foot Swelling B/l - started notici ng about 2 weeks ago when wake up in the morning swelling is down by evening they are swollen Reason Onset Date Comments Error (VOID this visit) 11/04/2023 Reason Comments Respiratory Distress Specialty Diagnoses / Procedures Referred By Contac t Referred To Contact Diagnoses Respiratory failure (HCC) Procedures J96.90 (ICD-10-CM) - Respiratory failure (HCC) Matt Rivas MD [address] [place] [address] [facility] [address] [place] [address] Referral ID Status Reason Start Date Expiration Date Visits Re quested Visits Authorized [id number] 1 1 Reason Comments Transitional Care Management Outreach Hospital Follow-up [facility] 10/30-11/10/23 Hypertension Pt restarted bp meds that she was taking before going into the hospital- she will bring them with her Reason Comments Joint Swelling Right Wrist- red and swollenYesterday woke up with little bump and now today is red and swollen Reason Comments COPD Hypertension Hyperlipidemia Diabetes Anxiety Depression Medication Check 6 month Health Maintenance Dexa scan- agreeRsv vaccine- not donePcv 20 vaccine- refuseMammogram- already has order 3rd covid vaccine- not doneEye exam- not done pt will sched Hep b or a vaccines- pt refuseShingles vaccine- refuse Reason Comments Knee Pain Left - feels like it wants to go out Referral To chiropractor Back Pain Back feeling better Health Maintenance Flu vaccine- refuse Medication Problem Pt needs clarificati on on what and when she needs to use for her nebulizer -she has 3 medications and does not know when she needs to use them Reason Comments Knee Pain Left- asking for inj Health Maintenance Eye exam- not done i n last year Dental exam- not done in last yearBone density- agree Other Pt is asking if she in now diabetic- she thought she was prediabetic Specialty Diagnoses / Procedures Referred By Sheila rossi Referred To Contact Diagnoses Chronic pain of left knee Vu Mullins MD [address] [place] [id number] Referral ID Status Reason Start Date Expiration Date V isits Requested Visits Authorized [id number] Pending Review 03/17/2024 03/12/2025 1 1 Reason Onset Date Comments Med Refill 03/30/2024 Reason Comments Sinus Problem pain Cough Chest feels tight Reason Comments Sinus Problem Worried getting sick Joint Swelling Left ankle Reason Onset Date Comments Med Refill 07/10/2022 Reason Comments Annual Exam Breast exam Blood Work Health Maintenance Flu vaccine- refuseP ap- pt refusePcv 20 vaccine- refuse Reason Comments Diabetes Reason Comments [facility] Follow[facility] 06/07-06/12/24 Reason Comments Welcome To Medicare Medicare Annual Wellness Visit Initial Blood Work Health Maintenance Dental exam-not done will schedEye exam- not done will sched Hep c screening- refuseShingles vaccine- [id number] covid vaccine- not done Reason Comments Knee Pain Left knee- asking fo r cortisone inj Specialty Diagnoses / Procedures Referred By Sheila rossi Referred To Contact Diagnoses Chronic pain of left knee Vu Mullins MD [address] [place] [address] Phone: tel: fax: Referral ID Status Reason Start Date Expiration Date V isits Requested Visits Authorized [id number] Pending Review 08/10/2024 08/05/2025 1 1 Reason Comments Chronic Pain COPD Depression Anxiety Diabetes Hypertension Hyperlipidemia Medication Check 6 month Health Maintenance Flu vaccine- refuse3 rd covid vaccine- not donePcv 20 vaccine- refuseMammogram- not right nowLung cancer check- getting done with pulmonologyDexa scan- agreeDental exam- sees [facility] Rsv vaccine- not done FOR RECORDS PERTAINING TO PATIENTS WHO ARE OR HAVE BEEN ENROLLED IN A CHEMICAL DEPENDENCY/SUBSTANCEABUSE PROGRAM, SOME INFORMATION MAY BE OMITTED. This clinical summary was aggregated from multiple sources. Caution should be exercised in using it in the provision of clinical care. This summary normalizes information from multiple sources, and as a consequence, information in this document may materially change the coding, format and clinical context of patient data. In addition, data may be omitted in some cases. CLINICAL DECISIONS SHOULD BE BASED ON THE PRIMARY CLINICAL RECORDS. [facility]. provides no warranty or guarantee of the accuracy or completeness of information in this document.
== END | disposition home or self-care (01) ==
LOC: CT 06:38
PROVIDERS: PCP Family Medicine; Referring Provider Internal Medicine Pulmonary Disease; Visit Provider Internal Medicine Pulmonary Disease
DX: J44.9 Chronic obstructive pulmonary disease, unspecified (principal); J47.9 Bronchiectasis, uncomplicated
CPT/HCPCS: 71250